=== PATIENT | female | born 1965 | race Hispanic/Latino ===

== ENCOUNTER 2018-04-01 15:31 | Inpatient (IN) | payer OTHER ==
[2018-04-01 15:47] VITALS: BMI 22.4
--- NOTE | 2018-04-01 17:49 | CP.PCM.CON ---
History of Present Illness - History of Present Illness History of Present Illness: Initial Nephrology Consultation: Assessment: critical Acute Kidney Injury (N17.9) possibly due to obstructive uropathy b/l hydroureteronephrosis Fall with rhabdomyolysis, severe anemia with leukocytsosis ? Sepsis Hyperphosphatemia (E83.39), hypocalcemia, hyperuricemia leg wounds Plan Pt in need of acute need for renal replacement therapy at this time. Will plan for HD today as ordered maintain hemodyanamics stable. 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 pt NPO at present urology consult for b/l hydro heme eval Check urine analysis, urine tox, spot protein/creatinine and albumin/creatinine ratio, monitor CPK, uric acid., phos level Check for 25-OH vitamin D, iPTH, TSAT and Ferritin Check serum protein electrophoresis with immunofixation HIV/Hep B and Hep C serology [sent at [facility]] Dose meds/antibiotics for reduced GFR. Avoid fleets enema/magnesium based laxatives. Avoid nephrotoxins/NSAIDs/ iodinated contrast (unless needed emergently) Glycemic control Further work up/management as per primary team Thanks for allowing me to participate in care of your patient. Will follow patient with you. Please call if any Qs. d/w ICU team Dr Jose G Clancy Office: [phone] Chief Complaint; feel sick HPI: Pt is a 52 F without known medical hx, lives in [place] presented from cruise ship as found to have unresponsiveness and here for further eval found to have severe renal failure, anemia and high WBC count renal consult for LULA eval Denies OTC/herbal meds or NSAIDs No recent iodinated contrast exposure. ROS: Cardiovascular: No chest pain. Pulmonary: No shortness of breath Gastrointestinal: denies abdominal pain No nausea. No vomiting. Genitourinary: No pain while urinating. Denies blood in urine. All other negative Physical Examination: General Appearance: co-operative , frail, chronically debilitated and ill appearing, very pale Vitals reviewed and noted as below Head; Atraumatic, normocephalic ENT: no ulcers no thrush. Tongue is midline. Oropharynx: no rash or ulcers. EYES: Pupils are equal, round and reactive to light accommodation. Eye muscles and extraocular movement intact. Sclera is anicteric. Neck; supple no lymphadenopathy, no thyromegaly or bruit Lungs: Increased respiratory rate/effort. Breath sounds bilateral equal and clear anteriorly Heart: Normal rate. s1s2 normal. No rub or gallop. Extremities: 1-2+ edema. No varicose veins. has wounds in lower extremities Neurological: Patient is alert, awake and oriented to person, place and time. No focal deficit. Strength bilateral appropriate and equal. mild confusion noted Skin: Warm and dry. Normal turgor. No rash. Palpitation: Normal elasticity for age. has echymoses over rib cage area Abdomen: Abdomen is soft. Bowel sounds +. There is no abdominal tenderness, no guarding/rigidity no organomegaly. globular non reducible mass in lower abdomen noted Psych: normal insight and normal affect/mood MSK: no joint tenderness or swelling. Digits and nails normal, no deformity : kidney or bladder not palpable. has sawyer Labs/imaging reviewed. Past medical history, past surgical history, family history, social history, allergy reviewed and noted as below Family hx: no hx of CKD. Rest non-contributory Past Patient History - Past Social History Smoking Status: Never Smoked - CARDIAC Hx Cardiac Disorders: (UNKNOWN) - PULMONARY Hx Respiratory Disorders: (UNKNOWN) - NEUROLOGICAL Hx Neurological Disorder: (UNKNOWN) - HEENT Hx HEENT Problems: (UNKNOWN) - RENAL Hx Chronic Kidney Disease: (UNKNOWN) - ENDOCRINE/METABOLIC Hx Endocrine Disorders: (UNKNOWN) - HEMATOLOGICAL/ONCOLOGICAL Hx Blood Disorders: (UNKNOWN) Hx Anemia: Yes (04-01-18) Other/Comment: SEPSIS 04-01-18 - INTEGUMENTARY Other/Comment: BLLE sores. Discoloration to Abd area. Umbilical hernia - MUSCULOSKELETAL/RHEUMATOLOGICAL Hx Musculoskeletal Disorders: (UNKNOWN) Hx Falls: Yes - GASTROINTESTINAL Hx Gastrointestinal Disorders: Yes (NON REDUCIBLE UMBILICAL HERNIA) - GENITOURINARY/GYNECOLOGICAL Hx Genitourinary Disorders: (UNKNOWN) - PSYCHIATRIC Hx Substance Use: No - SURGICAL HISTORY Hx Surgeries: No Meds Allergies/Adverse Reactions: Allergies Allergy/AdvReac Type Severity Reaction Status Date / Time No Known Allergies Allergy Verified 04/01/18 17:21
[2018-04-01] MEDS ORDERED: Vancomycin 1 gm/NS 200 ml 1 GM/200 ML BAG IVPB SCH (18:00)
[2018-04-01] MEDS ORDERED: DOPamine 400mg/250ml D5W 400 MG/250 ML BAG IV PRN (18:50)
[2018-04-01 18:55] LABS: ABG ALLEN TEST POS; ARTERIAL BLOOD GAS HCO3 17.1 mmol/L (21-28); ARTERIAL BLOOD GAS O2 SAT 96.3 % (95-98); ARTERIAL BLOOD GAS PCO2 13 mm/Hg (35-45); ARTERIAL BLOOD GAS PH 7.49 (7.35-7.45); ARTERIAL BLOOD GAS PO2 122 mm/Hg (80-100); ARTERIAL BLOOD GAS TCO2 10.3 mmol/L (22-28)
[2018-04-01] MEDS: Sodium Chloride 0.9% 1,000 ML IV SCH (18:56)
--- NOTE | 2018-04-01 19:14 | CP.PCM.CON ---
History of Present Illness - History of Present Illness History of Present Illness: Chief complaint: Abnormal blood works, transferred from [facility] for emergency hemodialysis. HPI: Patient initially presented to the emergency room at [facility], as she was found unresponsive in the cruise ship. When she presented to the emergency room patient had multiple medical condition , but patient started responding after that, not giving proper history. Patient was told that she is from [place], she was in vacation when she got sick. According to the medical information she was not able to move she was in the cabin, brought her to the emergency room. She was having significant skin excoriations, foul-smelling ulcer in the right leg, multiple ecchymosis in the abdomen, also in the groin area. She claims that the she was planning to lose weight, and she lost almost 40 pounds. After she started losing weight she started noticing hernia in the abdomen. Patient did not see any medical attention recently, did not see any medical doctor for quite a long time. Past medical history: Not available, agent denies any history Patient denies any allergies She claims that she is not a smoker nonalcoholic Family history not much available Review of systems: Patient is extremely thin looking, significant wasting noted. She is complaining of some shortness of breath, but not in any pain, not in any distress she climbs. She has no abdominal pain, no leg swelling she just not feeling well On examination: Vital signs is somewhat unstable, mild hypotension noted. Patient is extremely emaciated, thin looking significant muscle wasting noted. Multiple ecchymotic lesions in the abdomen, lower leg, and the groin region noted. Patient has a foul-smelling superficial skin gangrene lesions noted on the right lower extremity. She also has ecchymosis in the left leg and sacral region Chest bilateral diffuse wheezing noted. Regular heart sound Patient has a suprapubic abdominal mass periumbilical area soft tissue likely lipoma. Patient also has some hernia Patient's labs from the other hospital reviewed Patient has a hyperkalemia potassium 6.8. Very high BUN/creatinine noted Also severe anemia noted hemoglobin 4.0 Patient WBC 94. mostly neutrophilic. Elevated uric acid level noted. Also patient has elevated LDH. Calcium level is on the low side Phosphorus is elevated Chest x-ray mild congestive lung changes noted CT of the abdomen and pelvis reported as having mass in the pelvic region, bilateral hydronephrotic changes Assessment and recommendation: Patient is a 52-year-old female with a multiple condition at this time, severe metabolic acidosis, acute renal failure, hyperuricemia. High LDH. High CPK Patient also has a severe leukocytosis with the anemia, and also elevated platelets, high chance that the patient may have leukemia. Bilateral hydronephrosis and the mass in the abdominal, pelvic region. Abdominal mass in the abdominal wall. Significant ecchymotic changes. Bilateral leg swelling. Patient also has a likely is cellulitis with associated gangrene-like changes in the superficial skin, cellulitis severe, worsening necrotizing fasciitis cannot be ruled out. Currently on IV antibiotic. Will get a surgical opinion, urology opinion. Oncology opinion already called. Nephrology called. Patient is currently receiving blood transfusion, hemodialysis. Overall prognosis is very poor. The patient was transferred from the [facility] as there was no hemodialysis emergency available in that place. Patient was transferred to ICU in [facility] after multiple discussions with the hospital administration including REWIND OPERATOR. Patient was at high risk, which was explained to the administration, and also to the patient. Past Patient History - Past Social History Smoking Status: Never Smoked - CARDIAC Hx Cardiac Disorders: (UNKNOWN) - PULMONARY Hx Respiratory Disorders: (UNKNOWN) - NEUROLOGICAL Hx Neurological Disorder: (UNKNOWN) - HEENT Hx HEENT Problems: (UNKNOWN) - RENAL Hx Chronic Kidney Disease: (UNKNOWN) - ENDOCRINE/METABOLIC Hx Endocrine Disorders: (UNKNOWN) - HEMATOLOGICAL/ONCOLOGICAL Hx Blood Disorders: (UNKNOWN) Hx Anemia: Yes (04-01-18) Other/Comment: SEPSIS 04-01-18 - INTEGUMENTARY Other/Comment: BLLE sores. Discoloration to Abd area. Umbilical hernia - MUSCULOSKELETAL/RHEUMATOLOGICAL Hx Musculoskeletal Disorders: (UNKNOWN) Hx Falls: Yes - GASTROINTESTINAL Hx Gastrointestinal Disorders: Yes (NON REDUCIBLE UMBILICAL HERNIA) - GENITOURINARY/GYNECOLOGICAL Hx Genitourinary Disorders: (UNKNOWN) - PSYCHIATRIC Hx Substance Use: No - SURGICAL HISTORY Hx Surgeries: No Meds Allergies/Adverse Reactions: Allergies Allergy/AdvReac Type Severity Reaction Status Date / Time No Known Allergies Allergy Verified 04/01/18 17:21 - Medications Medications: Current Medications Meropenem 500 mg/ Sodium (Chloride) 100 mls @ 100 mls/hr IVPB Q8 NOLAN PRN Reason: Protocol Sodium Chloride (Sodium Chloride 0.9%) 1,000 mls @ 100 mls/hr IV .Q10H [facility] Last Admin: 04/01/18 18:56 Dose: Not Given Vancomycin/Sodium Chloride (Vancomycin 1 Gm/Ns 200 Ml) 1 gm in 200 mls @ 166.7 mls/hr IVPB Q48H NOLAN PRN Reason: Protocol Stop: 04/06/18 18:01 Last Admin: 04/01/18 18:05 Dose: Not Given Sodium Bicarbonate 50 meq/ (Sodium Chloride) 1,050 mls @ 50 mls/hr IV .Q21H [facility] Stop: 04/02/18 14:14 Last Admin: 04/01/18 18:55 Dose: 50 mls/hr Dopamine HCl/Dextrose (Dopamine 400mg/250ml D5w) 400 mg in 250 mls @ 4.093 mls/ hr IV .Q24H PRN; Protocol; 2 MCG/KG/MIN PRN Reason: TITRATE PER MD ORDER Pantoprazole Sodium (Protonix Inj) 40 mg IVP DAILY [facility] Results - Vital Signs Recent Vital Signs: Last Vital Signs Temp 94.5 F L 04/01/18 19:03 Pulse 98 H 04/01/18 19:03 Resp 30 H 04/01/18 19:03 BP 123/74 04/01/18 19:03 Pulse Ox 100 04/01/18 18:30 - Labs Labs: Laboratory Results - last 24 hr 04/01/18 04/01/18 17:51 18:50 Puncture Site Lfa pCO2 13 L* pO2 122 H HCO3 17.1 L ABG pH 7.49 H ABG Total CO2 10.3 L ABG O2 Saturation 96.3 ABG Base Excess -10.1 L Jann Test Pos ABG Potassium 4.7 A-a O2 Difference 575.0 Respiratory Index 4.7 Sodium 143.0 Chloride 116.0 H Glucose 68 Lactate 2.3 H Liter Flow 15.0 FiO2 100.0 Crit Value Called To Helen Crit Value Called By [facility] Crit Value Read Back Y Blood Gas Notified Time 1856 Arterial Blood Potassium 4.7 Blood Type O POSITIVE Antibody Screen Negative
[2018-04-01 19:23] LABS: CREATININE, RANDOM URINE 36.9 mg/dL; SQUAMOUS EPITHIAL 4 /hpf (0-5); URINE BACTERIA OCC (<OCC); URINE BILIRUBIN NEGATIVE (NEGATIVE); URINE BLOOD 3+ (NEGATIVE); URINE CLARITY Hazy (Clear); URINE COLOR Yellow (YELLOW); URINE GLUCOSE (UA) 1+ mg/dL (Normal); URINE LEUKOCYTE ESTERASE 2+ Leu/uL (Negative); URINE PROTEIN 2+ mg/dL (NEGATIVE); URINE UROBILINOGEN NORMAL mg/dL (0.2-1.0)
[2018-04-01 19:30] LABS: BARBITURATES, UR NEGATIVE (NEGATIVE); BENZODIAZEPINES, UR NEGATIVE (NEGATIVE); OPIATES, UR NEGATIVE (NEGATIVE); PHENCYCLIDINE, UR NEGATIVE (NEGATIVE)
[2018-04-01 19:31] LABS: ALB/GLOB RATIO 0.7 (1.0-2.1); ALBUMIN 1.9 g/dL (3.5-5.0); ALT/SGPT 120 U/L (9-52); AST/SGOT 244 U/L (14-36); CALCIUM 6.3 mg/dl (8.6-10.4); URIC ACID 13.3 mg/dL (2.2-7.5)
[2018-04-01] MEDS ORDERED: Morphine 4 MG/ML VIAL IVP ONE (19:45)
--- NOTE | 2018-04-01 19:45 | CP.PCM.CON ---
History of Present Illness - History of Present Illness History of Present Illness: 52 year old female with unknown medical history sent from [place] with LULA, hyperuricemia, leukocytosis, anemia and thrombocytosis, with concern for tumor lysis and leukemia. The patient is currently on bipap and I am unable to obtain a history from the patient. She has foul smelling ulcer from her lower extremity. She has ecchymosis over her extremities and abdomen. She is currently undergoing PRBC transfusion and hemodialysis. Past medical, surgical, family, social history cannot be obtained. Allergies: NKA per documentation Review of systems cannot be obtained. Past Patient History - Past Social History Smoking Status: Never Smoked - CARDIAC Hx Cardiac Disorders: (UNKNOWN) - PULMONARY Hx Respiratory Disorders: (UNKNOWN) - NEUROLOGICAL Hx Neurological Disorder: (UNKNOWN) - HEENT Hx HEENT Problems: (UNKNOWN) - RENAL Hx Chronic Kidney Disease: (UNKNOWN) - ENDOCRINE/METABOLIC Hx Endocrine Disorders: (UNKNOWN) - HEMATOLOGICAL/ONCOLOGICAL Hx Blood Disorders: (UNKNOWN) Hx Anemia: Yes (04-01-18) Other/Comment: SEPSIS 04-01-18 - INTEGUMENTARY Other/Comment: BLLE sores. Discoloration to Abd area. Umbilical hernia - MUSCULOSKELETAL/RHEUMATOLOGICAL Hx Musculoskeletal Disorders: (UNKNOWN) Hx Falls: Yes - GASTROINTESTINAL Hx Gastrointestinal Disorders: Yes (NON REDUCIBLE UMBILICAL HERNIA) - GENITOURINARY/GYNECOLOGICAL Hx Genitourinary Disorders: (UNKNOWN) - PSYCHIATRIC Hx Substance Use: No - SURGICAL HISTORY Hx Surgeries: No Meds Allergies/Adverse Reactions: Allergies Allergy/AdvReac Type Severity Reaction Status Date / Time No Known Allergies Allergy Verified 04/01/18 17:21 - Medications Medications: Current Medications Meropenem 500 mg/ Sodium (Chloride) 100 mls @ 100 mls/hr IVPB Q8 NOLAN PRN Reason: Protocol Sodium Chloride (Sodium Chloride 0.9%) 1,000 mls @ 100 mls/hr IV .Q10H NOLAN Last Admin: 04/01/18 18:56 Dose: Not Given Vancomycin/Sodium Chloride (Vancomycin 1 Gm/Ns 200 Ml) 1 gm in 200 mls @ 166.7 mls/hr IVPB Q48H NOLAN PRN Reason: Protocol Stop: 04/06/18 18:01 Last Admin: 04/01/18 18:05 Dose: Not Given Sodium Bicarbonate 50 meq/ (Sodium Chloride) 1,050 mls @ 50 mls/hr IV .Q21H [facility] Stop: 04/02/18 14:14 Last Admin: 04/01/18 18:55 Dose: 50 mls/hr Dopamine HCl/Dextrose (Dopamine 400mg/250ml D5w) 400 mg in 250 mls @ 4.093 mls/ hr IV .Q24H PRN; Protocol; 2 MCG/KG/MIN PRN Reason: TITRATE PER MD ORDER Morphine Sulfate (Morphine) 2 mg IVP ONCE ONE Stop: 04/01/18 19:46 Pantoprazole Sodium (Protonix Inj) 40 mg IVP DAILY NOLAN Physical Exam - Head Exam Head Exam: ATRAUMATIC - Eye Exam Eye Exam: Normal appearance - ENT Exam ENT Exam: Mucous Membranes Dry - Respiratory Exam Respiratory Exam: Respiratory Distress - Cardiovascular Exam Cardiovascular Exam: +S1, +S2 - GI/Abdominal Exam GI & Abdominal Exam: Normal Bowel Sounds - Extremities Exam Additional comments: +fould smelling ulcer - Psychiatric Exam Psychiatric exam: Depressed - Skin Skin Exam: Warm Results - Vital Signs Recent Vital Signs: Last Vital Signs Temp 95 F L 04/01/18 19:35 Pulse 104 H 04/01/18 19:35 Resp 28 H 04/01/18 19:35 BP 98/56 L 04/01/18 19:35 Pulse Ox 100 04/01/18 18:30 - Labs Result Diagrams: 04/01/18 20:10 04/01/18 19:09 Labs: Laboratory Results - last 24 hr 04/01/18 04/01/18 04/01/18 17:51 18:50 19:09 Puncture Site Lfa pCO2 13 L* pO2 122 H HCO3 17.1 L ABG pH 7.49 H ABG Total CO2 10.3 L ABG O2 Saturation 96.3 ABG Base Excess -10.1 L Jann Test Pos ABG Potassium 4.7 A-a O2 Difference 575.0 Respiratory Index 4.7 Sodium 143.0 146 Chloride 116.0 H 114 H Glucose 68 Lactate 2.3 H Liter Flow 15.0 FiO2 100.0 Crit Value Called To Helen Crit Value Called By [facility] Crit Value Read Back Y Blood Gas Notified Time 1855 Potassium 5.4 H Anion Gap 29 H Random Glucose 64 L Uric Acid 13.3 H Calcium 6.3 L Total Bilirubin 0.7 AST 244 H ALT 120 H Alkaline Phosphatase 297 H D Lactate Dehydrogenase 2023 H Total Protein 4.4 L Albumin 1.9 L Globulin 2.5 Albumin/Globulin Ratio 0.7 L Arterial Blood Potassium 4.7 Urine Color Urine Clarity Urine pH Ur Specific [place] Urine Protein Urine Glucose (UA) Urine Ketones Urine Blood Urine Nitrate Urine Bilirubin Urine Urobilinogen Ur Leukocyte Esterase Urine WBC (Auto) Urine RBC (Auto) Ur Squamous Epith Cells Urine Bacteria Ur Random Creatinine Urine Opiates Screen Urine Methadone Screen Ur Barbiturates Screen Ur Phencyclidine Scrn Ur Amphetamines Screen U Benzodiazepines Scrn U Oth Cocaine Metabols U Cannabinoids Screen Blood Type O POSITIVE Antibody Screen Negative 04/01/18 04/01/18 19:09 19:09 Puncture Site pCO2 pO2 HCO3 ABG pH ABG Total CO2 ABG O2 Saturation ABG Base Excess Jann Test ABG Potassium A-a O2 Difference Respiratory Index Sodium Chloride Glucose Lactate Liter Flow FiO2 Crit Value Called To Crit Value Called By Crit Value Read Back Blood Gas Notified Time Potassium Anion Gap Random Glucose Uric Acid Calcium Total Bilirubin AST ALT Alkaline Phosphatase Lactate Dehydrogenase Total Protein Albumin Globulin Albumin/Globulin Ratio Arterial Blood Potassium Urine Color Yellow Urine Clarity Hazy Urine pH 6.0 Ur Specific [place] 1.012 Urine Protein 2+ H Urine Glucose (UA) 1+ Urine Ketones Trace Urine Blood 3+ H Urine Nitrate Negative Urine Bilirubin Negative Urine Urobilinogen Normal Ur Leukocyte Esterase 2+ H Urine WBC (Auto) 33 H Urine RBC (Auto) 37 H Ur Squamous Epith Cells 4 Urine Bacteria Occ H Ur Random Creatinine 36.9 Urine Opiates Screen Negative Urine Methadone Screen Negative Ur Barbiturates Screen Negative Ur Phencyclidine Scrn Negative Ur Amphetamines Screen Negative U Benzodiazepines Scrn Negative U Oth Cocaine Metabols Negative U Cannabinoids Screen Negative Blood Type Antibody Screen Assessment & Plan (1) Leukocytosis Assessment and Plan: on antibiotics will review peripheral smear to evaluate for blasts; flow cytometery to be sent Tuesday will hold off on hydroxyurea for now as WBC declining ? related to infection ? leukemia Status: Acute (2) Anemia Assessment and Plan: will check retic count, b12, folate, ferritin, FOBT to further characterize monoclonal protein w/u sent ? underlying malignancy Status: Acute (3) Thrombocytosis Assessment and Plan: ? reactive will send JAK2 mutation Status: Acute (4) Coagulopathy Assessment and Plan: will add fibrinogen Thank you for this interesting consult. Status: Acute
[2018-04-01 19:56] LABS: BLOOD UREA NITROGEN 136 mg/dL (7-17); GFR AFRICAN-AMERICAN 6; GFR NON-AFRICAN AMERICAN 5
[2018-04-01 20:15] LABS: BASO # 0.1 K/uL (0.0-0.2); BASO % 0.2 % (0.0-2.0); EOS # 0.3 K/uL (0.0-0.7); EOS % 0.4 % (0.0-4.0); HEMOGLOBIN 7.5 g/dL (11.0-16.0); LYMPH # 1.5 K/uL (1.0-4.3); LYMPH % 2.3 % (20.0-40.0); MEAN CELL VOLUME 71.2 fL (81.0-99.0); MEAN CORPUSCULAR HEMOGLOBIN 23.8 pg (27.0-31.0); MEAN CORPUSCULAR HGB CONC 33.4 g/dL (33.0-37.0); MEAN PLATELET VOLUME 8.3 fL (7.2-11.7); MONO # 0.6 K/uL (0.0-0.8); MONO % 0.9 % (0.0-10.0); NEUT # 62.1 K/uL (1.8-7.0); NEUT % 96.2 % (50.0-75.0); NRBC % 0.5 % (0.0-2.0); PLATELET COUNT 534 K/uL (130-400); RBC 3.16 Mil/uL (3.80-5.20)
[2018-04-01 20:18] LABS: WHITE BLOOD COUNT 64.5 K/uL (4.8-10.8)
[2018-04-01 20:46] LABS: BANDS 8 % (0-2); LYMPHOCYTE 3 % (20-40); MONOCYTE 1 % (0-10); NEUTROPHIL 88 % (50-75); NUCLEATED RED BLOOD CELL 2 % (0-0); TOTAL CELLS COUNTED 100
[2018-04-01 20:47] LABS: PLATELET ESTIMATE INCREASED (NORMAL)
[2018-04-01 20:48] LABS: HYPOCHROMIC SLIGHT; POIKILOCYTOSIS MODERATE
[2018-04-01 20:49] LABS: ACANTHOCYTES SLIGHT; SCHISTOCYTES SLIGHT
[2018-04-01 20:50] LABS: GIANT PLATELETS PRESENT
[2018-04-01] MEDS: Meropenem 500 MG in Sodium Chloride 0.9% 100 ML IVPB SCH (21:24)
[2018-04-01 21:49] LABS: BASO # 0.1 K/uL (0.0-0.2); BASO % 0.2 % (0.0-2.0); EOS # 0.3 K/uL (0.0-0.7); EOS % 0.5 % (0.0-4.0); LYMPH # 1.2 K/uL (1.0-4.3); LYMPH % 2.2 % (20.0-40.0); MEAN CELL VOLUME 72.1 fL (81.0-99.0); MEAN CORPUSCULAR HEMOGLOBIN 23.4 pg (27.0-31.0); MEAN CORPUSCULAR HGB CONC 32.4 g/dL (33.0-37.0); MEAN PLATELET VOLUME 7.2 fL (7.2-11.7); MONO # 0.9 K/uL (0.0-0.8); MONO % 1.5 % (0.0-10.0); NEUT # 54.7 K/uL (1.8-7.0); NEUT % 95.6 % (50.0-75.0); NRBC % 0.6 % (0.0-2.0); RBC 3.01 Mil/uL (3.80-5.20); RED CELL DISTRIBUTION WIDTH 30.6 % (11.5-14.5)
[2018-04-01 21:53] LABS: WHITE BLOOD COUNT 57.2 K/uL (4.8-10.8)
[2018-04-01 21:56] LABS: INR 1.4; PROTHROMBIN TIME 15.5 SECONDS (9.7-12.2)
[2018-04-01] MEDS ORDERED: Sodium Chloride 0.9% 500 ML IV SCH ×2 (22:00→22:26)
[2018-04-01 22:04] LABS: ALB/GLOB RATIO 0.8 (1.0-2.1); CALCIUM 6.7 mg/dl (8.6-10.4)
[2018-04-01] MEDS ORDERED: Morphine 4 MG/ML VIAL IVP STA (22:20)
--- NOTE | 2018-04-01 22:31 | CP.PCM.PN ---
Subjective - Date & Time of Evaluation Date of Evaluation: 04/01/18 Time of Evaluation: 22:29 - Subjective Subjective: pt is awake but her breathing is very laboured spoke to her decided to intubate pt was intubated with 7.5 size tube placed at 23cm at lip bilateral air entry cxr ordered abg ordered pt condition is very critical family on their way Objective - Vital Signs/Intake and Output Vital Signs (last 24 hours): Temp Pulse Resp BP Pulse Ox 95 F L 101 H 26 H 109/67 100 04/01/18 20:20 04/01/18 20:20 04/01/18 20:20 04/01/18 20:20 04/01/18 20:20 Intake and Output: 04/01/18 04/02/18 18:59 06:59 Intake Total 595 715 Output Total 100 50 Balance 495 665 - Medications Medications: Current Medications Meropenem 500 mg/ Sodium (Chloride) 100 mls @ 100 mls/hr IVPB Q8 NOLAN PRN Reason: Protocol Last Admin: 04/01/18 21:24 Dose: 100 mls/hr Sodium Chloride (Sodium Chloride 0.9%) 1,000 mls @ 100 mls/hr IV .Q10H [facility] Last Admin: 04/01/18 18:56 Dose: Not Given Vancomycin/Sodium Chloride (Vancomycin 1 Gm/Ns 200 Ml) 1 gm in 200 mls @ 166.7 mls/hr IVPB Q48H NOLAN PRN Reason: Protocol Stop: 04/06/18 18:01 Last Admin: 04/01/18 18:05 Dose: Not Given Sodium Bicarbonate 50 meq/ (Sodium Chloride) 1,050 mls @ 50 mls/hr IV .Q21H [facility] Stop: 04/02/18 14:14 Last Admin: 04/01/18 18:55 Dose: 50 mls/hr Dopamine HCl/Dextrose (Dopamine 400mg/250ml D5w) 400 mg in 250 mls @ 4.093 mls/ hr IV .Q24H PRN; Protocol; 2 MCG/KG/MIN PRN Reason: TITRATE PER MD ORDER Metronidazole (Flagyl) 250 mg in 50 mls @ 100 mls/hr IVPB Q8 NOLAN PRN Reason: Protocol Stop: 04/06/18 22:01 Clindamycin Phosphate 300 mg/ (Sodium Chloride) 52 mls @ 100 mls/hr IVPB Q6H NOLAN PRN Reason: Protocol Linezolid (Zyvox 600mg/300ml D5w) 600 mg in 300 mls @ 200 mls/hr IVPB Q12 NOLAN PRN Reason: Protocol Amikacin Sulfate 750 mg/ (Sodium Chloride) 103 mls @ 100 mls/hr IV STAT STA PRN Reason: Protocol Stop: 04/01/18 23:03 Sodium Chloride (Sodium Chloride 0.9%) 500 mls @ 500 mls/hr IV .Q1H NOLAN Stop: 04/01/18 22:59 Fentanyl Citrate 2,500 mcg/ (Sodium Chloride) 250 mls @ 10.94 mls/hr IV .[id number] PRN; 2 MCG/KG/HR PRN Reason: Protocol Pantoprazole Sodium (Protonix Inj) 40 mg IVP DAILY NOLAN - Labs Labs: 04/01/18 21:45 04/01/18 21:45 PT 15.5 SECONDS (9.7-12.2) H 04/01/18 21:45 INR 1.4 04/01/18 21:45 APTT 32 SECONDS (21-34) 04/01/18 21:45
[2018-04-01] MEDS: Linezolid 600 mg in D5W 300 ml 600 MG/300 ML BAG IVPB SCH (22:40)
[2018-04-01] MEDS: Albumin Human 25% (12.5 gm/50 ml) IV SCH (22:54)
[2018-04-01] MEDS: Clindamycin 300 MG in Sodium Chloride 0.9% 50 ML IVPB SCH (23:02)
[2018-04-01] MEDS: metroNIDAZOLE IV 250mg/50 ml 250 MG/50 ML BAG IVPB SCH (23:09)
--- NOTE | 2018-04-01 23:44 | CP.PCM.HP ---
History of Present Illness - History of Present Illness History of Present Illness: Chief complaint: Abnormal blood works, transferred from [facility] for emergency hemodialysis. HPI: Patient initially presented to the emergency room at [facility], as she was [place]. When she presented to the emergency room patient had multiple medical condition , but patient started responding after that, not giving proper history. Patient was told that she is from [place], she was in vacation when she got sick. According to the medical information she was not able to move she was in the cabin, brought her to the emergency room. She was having significant skin excoriations, foul-smelling ulcer in the right leg, multiple ecchymosis in the abdomen, also in the groin area. She claims that the she was planning to lose weight, and she lost almost 40 pounds. After she started losing weight she started noticing hernia in the abdomen. Patient did not see any medical attention recently, did not see any medical doctor for quite a long time. Past medical history: Not available, agent denies any history Patient denies any allergies She claims that she is not a smoker nonalcoholic Family history not much available Review of systems: Patient is extremely thin looking, significant wasting noted. She is complaining of some shortness of breath, but not in any pain, not in any distress she climbs. She has no abdominal pain, no leg swelling she just not feeling well On examination: Vital signs is somewhat unstable, mild hypotension noted. Patient is extremely emaciated, thin looking significant muscle wasting noted. Multiple ecchymotic lesions in the abdomen, lower leg, and the groin region noted. Patient has a foul-smelling superficial skin gangrene lesions noted on the right lower extremity. She also has ecchymosis in the left leg and sacral region Chest bilateral diffuse wheezing noted. Regular heart sound Patient has a suprapubic abdominal mass periumbilical area soft tissue likely lipoma. Patient also has some hernia Patient's labs from the other hospital reviewed Patient has a hyperkalemia potassium 6.8. Very high BUN/creatinine noted Also severe anemia noted hemoglobin 4.0 Patient WBC 94. mostly neutrophilic. Elevated uric acid level noted. Also patient has elevated LDH. Calcium level is on the low side Phosphorus is elevated Chest x-ray mild congestive lung changes noted CT of the abdomen and pelvis reported as having mass in the pelvic region, bilateral hydronephrotic changes Assessment and recommendation: Patient is a 52-year-old female with a multiple condition at this time, severe metabolic acidosis, acute renal failure, hyperuricemia. High LDH. High CPK Patient also has a severe leukocytosis with the anemia, and also elevated platelets, high chance that the patient may have leukemia. Bilateral hydronephrosis and the mass in the abdominal, pelvic region. Abdominal mass in the abdominal wall. Significant ecchymotic changes. Bilateral leg swelling. Patient also has a likely is cellulitis with associated gangrene-like changes in the superficial skin, cellulitis severe, worsening necrotizing fasciitis cannot be ruled out. Currently on IV antibiotic. Will get a surgical opinion, urology opinion. Oncology opinion already called. Nephrology called. Patient is currently receiving blood transfusion, hemodialysis. Overall prognosis is very poor. The patient was transferred from the [facility] as there was no hemodialysis emergency available in that place. [facility] multiple discussions with the hospital administration including [employer]. Patient was at high risk, which was explained to the administration, and also to the patient. Present on Admission - Present on Admission Any Indicators Present on Admission: No Past Patient History - Past Medical History & Family History Past Medical History?: Yes - Past Social History Smoking Status: Never Smoked - CARDIAC Hx Cardiac Disorders: (UNKNOWN) - PULMONARY Hx Respiratory Disorders: (UNKNOWN) - NEUROLOGICAL Hx Neurological Disorder: (UNKNOWN) - HEENT Hx HEENT Problems: (UNKNOWN) - RENAL Hx Chronic Kidney Disease: (UNKNOWN) - ENDOCRINE/METABOLIC Hx Endocrine Disorders: (UNKNOWN) - HEMATOLOGICAL/ONCOLOGICAL Hx Blood Disorders: (UNKNOWN) Hx Anemia: Yes (04-01-18) Other/Comment: SEPSIS 04-01-18 - INTEGUMENTARY Other/Comment: BLLE sores. Discoloration to Abd area. Umbilical hernia - MUSCULOSKELETAL/RHEUMATOLOGICAL Hx Musculoskeletal Disorders: (UNKNOWN) Hx Falls: Yes - GASTROINTESTINAL Hx Gastrointestinal Disorders: Yes (NON REDUCIBLE UMBILICAL HERNIA) - GENITOURINARY/GYNECOLOGICAL Hx Genitourinary Disorders: (UNKNOWN) - PSYCHIATRIC Hx Substance Use: No - SURGICAL HISTORY Hx Surgeries: No - ANESTHESIA Hx Anesthesia: No Hx Anesthesia Reactions: No Meds Allergies/Adverse Reactions: Allergies Allergy/AdvReac Type Severity Reaction Status Date / Time No Known Allergies Allergy Verified 04/01/18 17:21 Results - Vital Signs Recent Vital Signs: Last Vital Signs Temp 96.8 F L 04/01/18 23:32 Pulse 155 H 04/01/18 23:32 Resp 24 04/01/18 23:32 BP 88/53 L 04/01/18 23:32 Pulse Ox 100 04/01/18 20:20 - Labs Result Diagrams: 04/11/18 06:29 04/11/18 06:29 Labs: Laboratory Results - last 24 hr 04/01/18 04/01/18 04/01/18 17:51 18:50 19:09 WBC RBC Hgb Hct MCV MCH MCHC RDW Plt Count MPV Neut % (Auto) Lymph % (Auto) [place] % (Auto) Eos % (Auto) Baso % (Auto) Neut # (Auto) Lymph # (Auto) [place] # (Auto) Eos # (Auto) Baso # (Auto) Neutrophils % (Manual) Band Neutrophils % Lymphocytes % (Manual) Monocytes % (Manual) Nucleated RBC % Platelet Estimate Giant Platelets Hypochromasia (manual) Poikilocytosis (manual Acanthocytes (Spur) Schistocytes PT INR APTT Puncture Site Lfa pCO2 13 L* pO2 122 H HCO3 17.1 L ABG pH 7.49 H ABG Total CO2 10.3 L ABG O2 Saturation 96.3 ABG Base Excess -10.1 L Jann Test Pos ABG Potassium 4.7 A-a O2 Difference 575.0 Respiratory Index 4.7 Sodium 143.0 146 Chloride 116.0 H 114 H Glucose 68 Lactate 2.3 H Liter Flow 15.0 FiO2 100.0 Crit Value Called To Helen Crit Value Called By [facility] Crit Value Read Back Y Blood Gas Notified Time 1855 Potassium 5.4 H Carbon Dioxide 8 L* Anion Gap 29 H BUN 136 H* Creatinine 8.1 H* Est GFR ( Amer) 6 Est GFR (Non-Af Amer) 5 Random Glucose 64 L Uric Acid 13.3 H Calcium 6.3 L Phosphorus Magnesium Total Bilirubin 0.7 AST 244 H ALT 120 H Alkaline Phosphatase 297 H D Lactate Dehydrogenase 2023 H Total Creatine Kinase 6254 H Total Protein 4.4 L Albumin 1.9 L Globulin 2.5 Albumin/Globulin Ratio 0.7 L Arterial Blood Potassium 4.7 Urine Color Urine Clarity Urine pH Ur Specific [place] Urine Protein Urine Glucose (UA) Urine Ketones Urine Blood Urine Nitrate Urine Bilirubin Urine Urobilinogen Ur Leukocyte Esterase Urine WBC (Auto) Urine RBC (Auto) Ur Squamous Epith Cells Urine Bacteria Ur Random Creatinine Urine Opiates Screen Urine Methadone Screen Ur Barbiturates Screen Ur Phencyclidine Scrn Ur Amphetamines Screen U Benzodiazepines Scrn U Oth Cocaine Metabols U Cannabinoids Screen Blood Type O POSITIVE Antibody Screen Negative 04/01/18 04/01/18 04/01/18 19:09 19:09 20:10 WBC 64.5 H* RBC 3.16 L Hgb 7.5 L Hct 22.5 L MCV 71.2 L MCH 23.8 L MCHC 33.4 RDW 32.0 H Plt Count 534 H MPV 8.3 Neut % (Auto) 96.2 H Lymph % (Auto) 2.3 L [place] % (Auto) 0.9 Eos % (Auto) 0.4 Baso % (Auto) 0.2 Neut # (Auto) 62.1 H Lymph # (Auto) 1.5 [place] # (Auto) 0.6 Eos # (Auto) 0.3 Baso # (Auto) 0.1 Neutrophils % (Manual) 88 H Band Neutrophils % 8 H Lymphocytes % (Manual) 3 L Monocytes % (Manual) 1 Nucleated RBC % 2 H Platelet Estimate Increased H Giant Platelets Present Hypochromasia (manual) Slight Poikilocytosis (manual Moderate Acanthocytes (Spur) Slight Schistocytes Slight PT INR APTT Puncture Site pCO2 pO2 HCO3 ABG pH ABG Total CO2 ABG O2 Saturation ABG Base Excess Jann Test ABG Potassium A-a O2 Difference Respiratory Index Sodium Chloride Glucose Lactate Liter Flow FiO2 Crit Value Called To Crit Value Called By Crit Value Read Back Blood Gas Notified Time Potassium Carbon Dioxide Anion Gap BUN Creatinine Est GFR ( Amer) Est GFR (Non-Af Amer) Random Glucose Uric Acid Calcium Phosphorus Magnesium Total Bilirubin AST ALT Alkaline Phosphatase Lactate Dehydrogenase Total Creatine Kinase Total Protein Albumin Globulin Albumin/Globulin Ratio Arterial Blood Potassium Urine Color Yellow Urine Clarity Hazy Urine pH 6.0 Ur Specific [place] 1.012 Urine Protein 2+ H Urine Glucose (UA) 1+ Urine Ketones Trace Urine Blood 3+ H Urine Nitrate Negative Urine Bilirubin Negative Urine Urobilinogen Normal Ur Leukocyte Esterase 2+ H Urine WBC (Auto) 33 H Urine RBC (Auto) 37 H Ur Squamous Epith Cells 4 Urine Bacteria Occ H Ur Random Creatinine 36.9 Urine Opiates Screen Negative Urine Methadone Screen Negative Ur Barbiturates Screen Negative Ur Phencyclidine Scrn Negative Ur Amphetamines Screen Negative U Benzodiazepines Scrn Negative U Oth Cocaine Metabols Negative U Cannabinoids Screen Negative Blood Type Antibody Screen 04/01/18 04/01/18 04/01/18 21:45 21:45 21:45 WBC 57.2 H* RBC 3.01 L Hgb 7.0 L Hct 21.7 L MCV 72.1 L MCH 23.4 L MCHC 32.4 L RDW 30.6 H Plt Count 485 H MPV 7.2 Neut % (Auto) 95.6 H Lymph % (Auto) 2.2 L [place] % (Auto) 1.5 Eos % (Auto) 0.5 Baso % (Auto) 0.2 Neut # (Auto) 54.7 H Lymph # (Auto) 1.2 [place] # (Auto) 0.9 H Eos # (Auto) 0.3 Baso # (Auto) 0.1 Neutrophils % (Manual) Band Neutrophils % Lymphocytes % (Manual) Monocytes % (Manual) Nucleated RBC % Platelet Estimate Giant Platelets Hypochromasia (manual) Poikilocytosis (manual Acanthocytes (Spur) Schistocytes PT 15.5 H INR 1.4 APTT 32 Puncture Site pCO2 pO2 HCO3 ABG pH ABG Total CO2 ABG O2 Saturation ABG Base Excess Jann Test ABG Potassium A-a O2 Difference Respiratory Index Sodium 142 Chloride 109 H Glucose Lactate Liter Flow FiO2 Crit Value Called To Crit Value Called By Crit Value Read Back Blood Gas Notified Time Potassium 4.3 Carbon Dioxide 12 L Anion Gap 26 H BUN 87 H Creatinine 5.5 H Est GFR ( Amer) 10 Est GFR (Non-Af Amer) 8 Random Glucose 43 L Uric Acid Calcium 6.7 L Phosphorus 6.9 H Magnesium 1.6 Total Bilirubin 0.8 AST 239 H ALT 122 H Alkaline Phosphatase 247 H Lactate Dehydrogenase Total Creatine Kinase Total Protein 4.6 L Albumin 2.0 L Globulin 2.6 Albumin/Globulin Ratio 0.8 L Arterial Blood Potassium Urine Color Urine Clarity Urine pH Ur Specific [place] Urine Protein Urine Glucose (UA) Urine Ketones Urine Blood Urine Nitrate Urine Bilirubin Urine Urobilinogen Ur Leukocyte Esterase Urine WBC (Auto) Urine RBC (Auto) Ur Squamous Epith Cells Urine Bacteria Ur Random Creatinine Urine Opiates Screen Urine Methadone Screen Ur Barbiturates Screen Ur Phencyclidine Scrn Ur Amphetamines Screen U Benzodiazepines Scrn U Oth Cocaine Metabols U Cannabinoids Screen Blood Type Antibody Screen
[2018-04-02] MEDS ORDERED: Digoxin 500 mcg/2ml (0.5 mg/2ml) Inj IVP ONE (00:26)
[2018-04-02 00:34] LABS: ABG ALLEN TEST POS; ARTERIAL BLOOD GAS HCO3 18.8 mmol/L (21-28); ARTERIAL BLOOD GAS PCO2 15 mm/Hg (35-45); ARTERIAL BLOOD GAS PH 7.51 (7.35-7.45); ARTERIAL BLOOD GAS PO2 263 mm/Hg (80-100); ARTERIAL BLOOD GAS TCO2 12.5 mmol/L (22-28)
[2018-04-02 00:38] VITALS: PULSE 150
[2018-04-02] MEDS: Clindamycin 300 MG in Sodium Chloride 0.9% 50 ML IVPB SCH ×4 (03:22→20:55)
[2018-04-02] MEDS: Sodium Chloride 0.9% 1,000 ML IV SCH ×2 (04:00→07:48)
[2018-04-02] MEDS: MethylPREDNISolone 40 mg Vial IVP SCH ×2 (05:11→18:31)
[2018-04-02] MEDS: metroNIDAZOLE IV 250mg/50 ml 250 MG/50 ML BAG IVPB SCH (05:11)
[2018-04-02] MEDS: Meropenem 500 MG in Sodium Chloride 0.9% 100 ML IVPB SCH ×3 (05:12→21:03)
--- NOTE | 2018-04-02 05:41 | CP.PCM.CON ---
<Kush Sherwood - Last Filed: 04/02/18 05:32> History of Present Illness - History of Present Illness History of Present Illness: General Surgery Consult Note for Dr. Singer This is a 52F with an unknown PMH who was found down for an unknown number of hours/days with no known cause. She was altered on arrival at [facility]. She was found to have rabdomylsis and acute renal failure possibly acute on chronic in need of an emergent Dialysis catheter which was placed by my surgical colleague at [facility]. She was noted there to have a small necrotic lower extremity ulcers without any significant signs of infection. Six hours after surgical evaluation at [facility] I was called to the see patient. She was being intubated at the time and was noted to have lymphangitis extending from the lower extremity wounds bilaterally to the inguinal creases. Spoke to mother and brother at bedside, report that the patient "doesnt tell them anything" and that its unlikely she sees a doctor, if she had medical problems its possible she is unaware. PMH: Unknown PSH: Unknown ALL: NKDA Review of Systems - Review of Systems Systems not reviewed;Unavailable: Acuity of Condition, Unstable Vital Signs, Altered Mental Status, Intubated Past Patient History - Past Medical History & Family History Past Medical History?: Yes - Past Social History Smoking Status: Never Smoked - CARDIAC Hx Cardiac Disorders: (UNKNOWN) - PULMONARY Hx Respiratory Disorders: (UNKNOWN) - NEUROLOGICAL Hx Neurological Disorder: (UNKNOWN) - HEENT Hx HEENT Problems: (UNKNOWN) - RENAL Hx Chronic Kidney Disease: (UNKNOWN) - ENDOCRINE/METABOLIC Hx Endocrine Disorders: (UNKNOWN) - HEMATOLOGICAL/ONCOLOGICAL Hx Blood Disorders: (UNKNOWN) Hx Anemia: Yes (04-01-18) Other/Comment: SEPSIS 04-01-18 - INTEGUMENTARY Other/Comment: BLLE sores. Discoloration to Abd area. Umbilical hernia - MUSCULOSKELETAL/RHEUMATOLOGICAL Hx Musculoskeletal Disorders: (UNKNOWN) Hx Falls: Yes - GASTROINTESTINAL Hx Gastrointestinal Disorders: Yes (NON REDUCIBLE UMBILICAL HERNIA) - GENITOURINARY/GYNECOLOGICAL Hx Genitourinary Disorders: (UNKNOWN) - PSYCHIATRIC Hx Substance Use: No - SURGICAL HISTORY Hx Surgeries: No - ANESTHESIA Hx Anesthesia: No Hx Anesthesia Reactions: No Meds Allergies/Adverse Reactions: Allergies Allergy/AdvReac Type Severity Reaction Status Date / Time No Known Allergies Allergy Verified 04/01/18 17:21 - Medications Medications: Current Medications Albumin Human (Albumin Human 25% (12.5 Gm/50 Ml)) 12.5 gm IV Q12 [facility] Last Admin: 04/01/18 22:54 Dose: 12.5 gm Meropenem 500 mg/ Sodium (Chloride) 100 mls @ 100 mls/hr IVPB Q8 [facility] PRN Reason: Protocol Last Admin: 04/02/18 05:12 Dose: 100 mls/hr Sodium Chloride (Sodium Chloride 0.9%) 1,000 mls @ 100 mls/hr IV .Q10H [facility] Last Admin: 04/01/18 18:56 Dose: Not Given Vancomycin/Sodium Chloride (Vancomycin 1 Gm/Ns 200 Ml) 1 gm in 200 mls @ 166.7 mls/hr IVPB Q48H [facility] PRN Reason: Protocol Stop: 04/06/18 18:01 Last Admin: 04/01/18 18:05 Dose: Not Given Sodium Bicarbonate 50 meq/ (Sodium Chloride) 1,050 mls @ 50 mls/hr IV .Q21H [facility] Stop: 04/02/18 14:14 Last Admin: 04/01/18 18:55 Dose: 50 mls/hr Dopamine HCl/Dextrose (Dopamine 400mg/250ml D5w) 400 mg in 250 mls @ 4.093 mls/ hr IV .Q24H PRN; Protocol; 2 MCG/KG/MIN PRN Reason: TITRATE PER MD ORDER Metronidazole (Flagyl) 250 mg in 50 mls @ 100 mls/hr IVPB Q8 [facility] PRN Reason: Protocol Stop: 04/06/18 22:01 Last Admin: 04/02/18 05:11 Dose: 100 mls/hr Clindamycin Phosphate 300 mg/ (Sodium Chloride) 52 mls @ 100 mls/hr IVPB Q6H [facility] PRN Reason: Protocol Last Admin: 04/02/18 03:22 Dose: 100 mls/hr Linezolid (Zyvox 600mg/300ml D5w) 600 mg in 300 mls @ 200 mls/hr IVPB Q12 [facility] PRN Reason: Protocol Last Admin: 04/01/18 22:40 Dose: 200 mls/hr Fentanyl Citrate 2,500 mcg/ (Sodium Chloride) 250 mls @ 10.94 mls/hr IV .[id number] PRN; 2 MCG/KG/HR PRN Reason: Protocol Last Titration: 04/02/18 01:47 Dose: 1 mcg/kg/hr, 5.5 mls/hr Lorazepam (Ativan) 2 mg IVP Q6H PRN PRN Reason: Anxiety Last Admin: 04/01/18 22:46 Dose: 2 mg Methylprednisolone (Solu-Medrol) 40 mg IVP Q12H [facility] Stop: 04/04/18 06:01 Last Admin: 04/02/18 05:11 Dose: 40 mg Pantoprazole Sodium (Protonix Inj) 40 mg IVP DAILY [facility] Physical Exam - Constitutional Appears: Toxic - Head Exam Head Exam: ATRAUMATIC, NORMOCEPHALIC - Respiratory Exam Additional comments: Intubated and ventilated - Cardiovascular Exam Additional comments: Tachycardic 145-165HR - GI/Abdominal Exam GI & Abdominal Exam: Hernia, Soft. absent: Guarding Additional comments: Erythema - Extremities Exam Additional comments: Bilateral lower extremity ulcers with erythema extending from the ulcer to the the inguinal crease. Results - Vital Signs Recent Vital Signs: Last Vital Signs Temp 98.8 F 04/02/18 02:03 Pulse 107 H 04/02/18 02:03 Resp 20 04/02/18 02:03 BP 96/58 L 04/02/18 02:03 Pulse Ox 100 04/02/18 01:00 - Labs Result Diagrams: 04/01/18 21:45 04/01/18 21:45 Labs: Laboratory Results - last 24 hr 04/01/18 04/01/18 04/01/18 17:51 18:50 19:09 WBC RBC Hgb Hct MCV MCH MCHC RDW Plt Count MPV Neut % (Auto) Lymph % (Auto) Divide % (Auto) Eos % (Auto) Baso % (Auto) Neut # (Auto) Lymph # (Auto) Divide # (Auto) Eos # (Auto) Baso # (Auto) Neutrophils % (Manual) Band Neutrophils % Lymphocytes % (Manual) Monocytes % (Manual) Nucleated RBC % Platelet Estimate Giant Platelets Hypochromasia (manual) Poikilocytosis (manual Acanthocytes (Spur) Schistocytes PT INR APTT Puncture Site Lfa pCO2 13 L* pO2 122 H HCO3 17.1 L ABG pH 7.49 H ABG Total CO2 10.3 L ABG O2 Saturation 96.3 ABG Base Excess -10.1 L Jann Test Pos ABG Potassium 4.7 A-a O2 Difference 575.0 Respiratory Index 4.7 Sodium 143.0 146 Chloride 116.0 H 114 H Glucose 68 Lactate 2.3 H Liter Flow 15.0 Vent Mode Mechanical Rate FiO2 100.0 Tidal Volume PEEP Crit Value Called To Helen Crit Value Called By Marek ozuna Crit Value Read Back Y Blood Gas Notified Time 1855 Potassium 5.4 H Carbon Dioxide 8 L* Anion Gap 29 H BUN 136 H* Creatinine 8.1 H* Est GFR ( Amer) 6 Est GFR (Non-Af Amer) 5 POC Glucose (mg/dL) Random Glucose 64 L Uric Acid 13.3 H Calcium 6.3 L Phosphorus Magnesium Total Bilirubin 0.7 AST 244 H ALT 120 H Alkaline Phosphatase 297 H D Lactate Dehydrogenase 2023 H Total Creatine Kinase 6254 H Total Protein 4.4 L Albumin 1.9 L Globulin 2.5 Albumin/Globulin Ratio 0.7 L Arterial Blood Potassium 4.7 Urine Color Urine Clarity Urine pH Ur Specific [place] Urine Protein Urine Glucose (UA) Urine Ketones Urine Blood Urine Nitrate Urine Bilirubin Urine Urobilinogen Ur Leukocyte Esterase Urine WBC (Auto) Urine RBC (Auto) Ur Squamous Epith Cells Urine Bacteria Ur Random Creatinine Urine Opiates Screen Urine Methadone Screen Ur Barbiturates Screen Ur Phencyclidine Scrn Ur Amphetamines Screen U Benzodiazepines Scrn U Oth Cocaine Metabols U Cannabinoids Screen Blood Type O POSITIVE Antibody Screen Negative 04/01/18 04/01/18 04/01/18 19:09 19:09 20:10 WBC 64.5 H* RBC 3.16 L Hgb 7.5 L Hct 22.5 L MCV 71.2 L MCH 23.8 L MCHC 33.4 RDW 32.0 H Plt Count 534 H MPV 8.3 Neut % (Auto) 96.2 H Lymph % (Auto) 2.3 L Divide % (Auto) 0.9 Eos % (Auto) 0.4 Baso % (Auto) 0.2 Neut # (Auto) 62.1 H Lymph # (Auto) 1.5 Divide # (Auto) 0.6 Eos # (Auto) 0.3 Baso # (Auto) 0.1 Neutrophils % (Manual) 88 H Band Neutrophils % 8 H Lymphocytes % (Manual) 3 L Monocytes % (Manual) 1 Nucleated RBC % 2 H Platelet Estimate Increased H Giant Platelets Present Hypochromasia (manual) Slight Poikilocytosis (manual Moderate Acanthocytes (Spur) Slight Schistocytes Slight PT INR APTT Puncture Site pCO2 pO2 HCO3 ABG pH ABG Total CO2 ABG O2 Saturation ABG Base Excess Jann Test ABG Potassium A-a O2 Difference Respiratory Index Sodium Chloride Glucose Lactate Liter Flow Vent Mode Mechanical Rate FiO2 Tidal Volume PEEP Crit Value Called To Crit Value Called By Crit Value Read Back Blood Gas Notified Time Potassium Carbon Dioxide Anion Gap BUN Creatinine Est GFR ( Amer) Est GFR (Non-Af Amer) POC Glucose (mg/dL) Random Glucose Uric Acid Calcium Phosphorus Magnesium Total Bilirubin AST ALT Alkaline Phosphatase Lactate Dehydrogenase Total Creatine Kinase Total Protein Albumin Globulin Albumin/Globulin Ratio Arterial Blood Potassium Urine Color Yellow Urine Clarity Hazy Urine pH 6.0 Ur Specific [place] 1.012 Urine Protein 2+ H Urine Glucose (UA) 1+ Urine Ketones Trace Urine Blood 3+ H Urine Nitrate Negative Urine Bilirubin Negative Urine Urobilinogen Normal Ur Leukocyte Esterase 2+ H Urine WBC (Auto) 33 H Urine RBC (Auto) 37 H Ur Squamous Epith Cells 4 Urine Bacteria Occ H Ur Random Creatinine 36.9 Urine Opiates Screen Negative Urine Methadone Screen Negative Ur Barbiturates Screen Negative Ur Phencyclidine Scrn Negative Ur Amphetamines Screen Negative U Benzodiazepines Scrn Negative U Oth Cocaine Metabols Negative U Cannabinoids Screen Negative Blood Type Antibody Screen 04/01/18 04/01/18 04/01/18 21:45 21:45 21:45 WBC 57.2 H* RBC 3.01 L Hgb 7.0 L Hct 21.7 L MCV 72.1 L MCH 23.4 L MCHC 32.4 L RDW 30.6 H Plt Count 485 H MPV 7.2 Neut % (Auto) 95.6 H Lymph % (Auto) 2.2 L Divide % (Auto) 1.5 Eos % (Auto) 0.5 Baso % (Auto) 0.2 Neut # (Auto) 54.7 H Lymph # (Auto) 1.2 Divide # (Auto) 0.9 H Eos # (Auto) 0.3 Baso # (Auto) 0.1 Neutrophils % (Manual) Band Neutrophils % Lymphocytes % (Manual) Monocytes % (Manual) Nucleated RBC % Platelet Estimate Giant Platelets Hypochromasia (manual) Poikilocytosis (manual Acanthocytes (Spur) Schistocytes PT 15.5 H INR 1.4 APTT 32 Puncture Site pCO2 pO2 HCO3 ABG pH ABG Total CO2 ABG O2 Saturation ABG Base Excess Jann Test ABG Potassium A-a O2 Difference Respiratory Index Sodium 142 Chloride 109 H Glucose Lactate Liter Flow Vent Mode Mechanical Rate FiO2 Tidal Volume PEEP Crit Value Called To Crit Value Called By Crit Value Read Back Blood Gas Notified Time Potassium 4.3 Carbon Dioxide 12 L Anion Gap 26 H BUN 87 H Creatinine 5.5 H Est GFR ( Amer) 10 Est GFR (Non-Af Amer) 8 POC Glucose (mg/dL) Random Glucose 43 L Uric Acid Calcium 6.7 L Phosphorus 6.9 H Magnesium 1.6 Total Bilirubin 0.8 AST 239 H ALT 122 H Alkaline Phosphatase 247 H Lactate Dehydrogenase Total Creatine Kinase Total Protein 4.6 L Albumin 2.0 L Globulin 2.6 Albumin/Globulin Ratio 0.8 L Arterial Blood Potassium Urine Color Urine Clarity Urine pH Ur Specific [place] Urine Protein Urine Glucose (UA) Urine Ketones Urine Blood Urine Nitrate Urine Bilirubin Urine Urobilinogen Ur Leukocyte Esterase Urine WBC (Auto) Urine RBC (Auto) Ur Squamous Epith Cells Urine Bacteria Ur Random Creatinine Urine Opiates Screen Urine Methadone Screen Ur Barbiturates Screen Ur Phencyclidine Scrn Ur Amphetamines Screen U Benzodiazepines Scrn U Oth Cocaine Metabols U Cannabinoids Screen Blood Type Antibody Screen 04/01/18 04/02/18 23:51 01:30 WBC RBC Hgb Hct MCV MCH MCHC RDW Plt Count MPV Neut % (Auto) Lymph % (Auto) Divide % (Auto) Eos % (Auto) Baso % (Auto) Neut # (Auto) Lymph # (Auto) Divide # (Auto) Eos # (Auto) Baso # (Auto) Neutrophils % (Manual) Band Neutrophils % Lymphocytes % (Manual) Monocytes % (Manual) Nucleated RBC % Platelet Estimate Giant Platelets Hypochromasia (manual) Poikilocytosis (manual Acanthocytes (Spur) Schistocytes PT INR APTT Puncture Site R rad pCO2 15 L* pO2 263 H HCO3 18.8 L ABG pH 7.51 H ABG Total CO2 12.5 L ABG O2 Saturation 98.0 ABG Base Excess -7.9 L Jann Test Pos ABG Potassium 4.4 A-a O2 Difference 75.0 Respiratory Index 0.3 Sodium 138.0 Chloride 108.0 H Glucose 77 Lactate 2.3 H Liter Flow Vent Mode Prvc Mechanical Rate 16 FiO2 50.0 Tidal Volume 450 PEEP 5 Crit Value Called To Dr hodge Crit Value Called By Carmenza doss rt Crit Value Read Back Y Blood Gas Notified Time 33 Potassium Carbon Dioxide Anion Gap BUN Creatinine Est GFR ( Amer) Est GFR (Non-Af Amer) POC Glucose (mg/dL) 70 Random Glucose Uric Acid Calcium Phosphorus Magnesium Total Bilirubin AST ALT Alkaline Phosphatase Lactate Dehydrogenase Total Creatine Kinase Total Protein Albumin Globulin Albumin/Globulin Ratio Arterial Blood Potassium 4.4 Urine Color Urine Clarity Urine pH Ur Specific [place] Urine Protein Urine Glucose (UA) Urine Ketones Urine Blood Urine Nitrate Urine Bilirubin Urine Urobilinogen Ur Leukocyte Esterase Urine WBC (Auto) Urine RBC (Auto) Ur Squamous Epith Cells Urine Bacteria Ur Random Creatinine Urine Opiates Screen Urine Methadone Screen Ur Barbiturates Screen Ur Phencyclidine Scrn Ur Amphetamines Screen U Benzodiazepines Scrn U Oth Cocaine Metabols U Cannabinoids Screen Blood Type Antibody Screen - Imaging and Cardiology CT scan - abdomen Status: Image reviewed by me, Report reviewed by me CT scan - pelvis Status: Image reviewed by me, Report reviewed by me Additional comment: Additionally X-rays reviewed by me as well Assessment & Plan - Assessment and Plan (Free Text) Assessment: 52F with necrotic leg ulcers bilaterally possible fascitis in multiorgan failure Plan: WBC 57.2 HGB 7 Renal failure: BUN/CR decreasing with dialysis now 87/5.5 Liver failure: AST/ALT 239/[address] LE if stabilizes If stable for OR possible operation Transfuse 2PRBC and 2FFP D/W Dr. Lucrecia Sherwood PGY2 - Date & Time Date: 04/02/18 Time: 00:25 <Bg Singer - Last Filed: 04/08/18 21:57> Meds - Medications Medications: Current Medications Albumin Human (Albumin Human 25% (12.5 Gm/50 Ml)) 25 gm IV MWF PRN PRN Reason: Other Albuterol/Ipratropium (Duoneb 3 Mg/0.5 Mg (3 Ml) Ud) 3 ml INH RQ6 PRN PRN Reason: Shortness of Breath Last Admin: 04/03/18 13:37 Dose: 3 ml Ascorbic Acid (Vitamin C 500 Mg Tab) 500 mg PO BID [facility] Last Admin: 04/08/18 18:18 Dose: 500 mg Calcium Acetate (Phoslo) 1,334 mg PO TIDCC [facility] Last Admin: 04/08/18 18:18 Dose: 1,334 mg Ergocalciferol (Drisdol 50,000 Intl Units Cap) 1 cap PO Q7D [facility] Last Admin: 04/04/18 12:11 Dose: 1 cap Ferrous Gluconate (Fergon) 324 mg PO TID [facility] Last Admin: 04/08/18 18:18 Dose: 324 mg Heparin Sodium (Porcine) (Heparin) 5,000 units SC Q12 [facility] Last Admin: 04/08/18 21:34 Dose: 5,000 units Doxycycline Hyclate 100 mg/ (Sodium Chloride) 100 mls @ 100 mls/hr IVPB Q12H [facility] PRN Reason: Protocol Last Admin: 04/08/18 12:37 Dose: 100 mls/hr Ampicillin 2 gm/ Sodium (Chloride) 100 mls @ 200 mls/hr IVPB Q8H [facility] PRN Reason: Protocol Last Admin: 04/08/18 20:00 Dose: 200 mls/hr Meropenem 500 mg/ Sodium (Chloride) 100 mls @ 100 mls/hr IVPB Q12H [facility] PRN Reason: Protocol Stop: 04/14/18 23:31 Last Admin: 04/08/18 10:56 Dose: 100 mls/hr Multivitamins/Vitamin C (Multi-Delyn Liquid) 5 ml PO DAILY [facility] Last Admin: 04/08/18 10:55 Dose: 5 ml Pantoprazole Sodium (Protonix Inj) 40 mg IVP DAILY [facility] Last Admin: 04/08/18 10:55 Dose: 40 mg Silver Sulfadiazine (Silvadene 1%) 0 ea TOP DAILY [facility] Last Admin: 04/08/18 11:13 Dose: 1 applic Results - Vital Signs Recent Vital Signs: Last Vital Signs Temp 97.2 F L 04/08/18 16:00 Pulse 99 H 04/08/18 19:02 Resp 21 04/08/18 19:02 BP 102/63 04/08/18 19:02 Pulse Ox 100 04/08/18 19:02 - Labs Result Diagrams: 04/08/18 07:04 04/08/18 07:01 Labs: Laboratory Results - last 24 hr 04/03/18 04/05/18 04/06/18 18:23 07:21 08:41 WBC RBC Hgb Hct MCV MCH MCHC RDW Plt Count MPV Neut % (Auto) Lymph % (Auto) Divide % (Auto) Eos % (Auto) Baso % (Auto) Neut # (Auto) Lymph # (Auto) Divide # (Auto) Eos # (Auto) Baso # (Auto) Neutrophils % (Manual) Band Neutrophils % Lymphocytes % (Manual) Monocytes % (Manual) Platelet Estimate Polychromasia Hypochromasia (manual) Anisocytosis (manual) Macrocytosis (manual) Sodium Potassium Chloride Carbon Dioxide Anion Gap BUN Creatinine Est GFR ( Amer) Est GFR (Non-Af Amer) Random Glucose Calcium Phosphorus Magnesium Total Bilirubin AST ALT Alkaline Phosphatase Total Protein Albumin Globulin Albumin/Globulin Ratio UF Heparin Interp Negative Random Vancomycin Cycl Citrul Peptide IgG MAYI Screen Negative MAYI Titer TNP MAYI Pattern TNP SS-A Antibody <1.0 neg SS-B Antibody <1.0 neg Sm (Brandt) Antibody <1.0 neg SM/BLOW MOLD TECHNICIAN Antibody <1.0 neg Scl-70 Antibody <1.0 neg Ribosomal P Prot Ab <1.0 neg Anti-Mitochondrial Titr TNP Anti-Mitochondrial Ab Negative Actin IgG Antibody <20 Heparin-induced Plt Ab Negative GODWIN UFH Low Dose 0.1 0 GODWIN UFH Low Dose 0.5 1 [facility]WIN UFH High Dose 100 0 Complement C3 79 L Complement C4 18 C. difficile Ag & Toxin Blood Type O POSITIVE Antibody Screen Negative 04/06/18 04/08/18 04/08/18 12:12 07:01 07:04 WBC 26.3 H RBC 2.75 L Hgb 7.7 L Hct 22.8 L MCV 82.9 MCH 28.0 MCHC 33.8 RDW 18.3 H Plt Count 87 L MPV 10.0 Neut % (Auto) 93.3 H Lymph % (Auto) 3.1 L Divide % (Auto) 3.4 Eos % (Auto) 0.1 Baso % (Auto) 0.1 Neut # (Auto) 24.5 H Lymph # (Auto) 0.8 L Divide # (Auto) 0.9 H Eos # (Auto) 0.0 Baso # (Auto) 0.0 Neutrophils % (Manual) 92 H Band Neutrophils % 1 Lymphocytes % (Manual) 2 L Monocytes % (Manual) 5 Platelet Estimate Decreased L Polychromasia Slight Hypochromasia (manual) Slight Anisocytosis (manual) Slight Macrocytosis (manual) Slight Sodium 133 Potassium 3.4 L Chloride 97 L Carbon Dioxide 25 Anion Gap 15 BUN 43 H Creatinine 1.7 H Est GFR ( Amer) 38 Est GFR (Non-Af Amer) 31 Random Glucose 65 Calcium 7.7 L Phosphorus 4.7 H Magnesium 2.0 Total Bilirubin 0.7 AST 22 ALT 31 Alkaline Phosphatase 135 H Total Protein 4.3 L Albumin 2.1 L Globulin 2.2 Albumin/Globulin Ratio 1.0 UF Heparin Interp Random Vancomycin Cycl Citrul Peptide IgG <16 MAYI Screen MAYI Titer MAYI Pattern SS-A Antibody SS-B Antibody Sm (Brandt) Antibody SM/BLOW MOLD TECHNICIAN Antibody Scl-70 Antibody Ribosomal P Prot Ab Anti-Mitochondrial Titr Anti-Mitochondrial Ab Actin IgG Antibody Heparin-induced Plt Ab GODWIN UFH Low Dose 0.1 GODWIN UFH Low Dose 0.5 GODWIN UFH High Dose 100 Complement C3 Complement C4 C. difficile Ag & Toxin Blood Type Antibody Screen 04/08/18 04/08/18 07:05 14:56 WBC RBC Hgb Hct MCV MCH MCHC RDW Plt Count MPV Neut % (Auto) Lymph % (Auto) Divide % (Auto) Eos % (Auto) Baso % (Auto) Neut # (Auto) Lymph # (Auto) Divide # (Auto) Eos # (Auto) Baso # (Auto) Neutrophils % (Manual) Band Neutrophils % Lymphocytes % (Manual) Monocytes % (Manual) Platelet Estimate Polychromasia Hypochromasia (manual) Anisocytosis (manual) Macrocytosis (manual) Sodium Potassium Chloride Carbon Dioxide Anion Gap BUN Creatinine Est GFR ( Amer) Est GFR (Non-Af Amer) Random Glucose Calcium Phosphorus Magnesium Total Bilirubin AST ALT Alkaline Phosphatase Total Protein Albumin Globulin Albumin/Globulin Ratio UF Heparin Interp Random Vancomycin 18.5 Cycl Citrul Peptide IgG MAYI Screen MAYI Titer MAYI Pattern SS-A Antibody SS-B Antibody Sm (Brandt) Antibody SM/BLOW MOLD TECHNICIAN Antibody Scl-70 Antibody Ribosomal P Prot Ab Anti-Mitochondrial Titr Anti-Mitochondrial Ab Actin IgG Antibody Heparin-induced Plt Ab GODWIN UFH Low Dose 0.1 GODWIN UFH Low Dose 0.5 GODWIN UFH High Dose 100 Complement C3 Complement C4 C. difficile Ag & Toxin Negative Blood Type Antibody Screen Attending/Attestation - Attestation I have personally seen and examined this patient.: Yes I have fully participated in the care of the patient.: Yes I have reviewed all pertinent clinical information: Yes Notes (Text): Pt was seen and examined at bedside Agree with above note and assessment Pt with Cellulitis and spreading skin infection of whole body Labs and radiology reviewed Ass: MODS, Severe acidosis, septic shock Plan : Hemodialysis and ICU care IV antibiotics as per ID Very poor prognosis Local wound care of open wounds Poor candidate for any surgical intervention Plan d.w primary team in detail Risk and benefit explained in detail.
[2018-04-02 05:55] LABS: ABG ALLEN TEST POS; ARTERIAL BLOOD GAS HCO3 17.8 mmol/L (21-28); ARTERIAL BLOOD GAS HEMOGLOBIN 8.1 g/dL (11.7-17.4); ARTERIAL BLOOD GAS O2 SAT 98.2 % (95-98); ARTERIAL BLOOD GAS PCO2 18 mm/Hg (35-45); ARTERIAL BLOOD GAS PH 7.47 (7.35-7.45); ARTERIAL BLOOD GAS PO2 193 mm/Hg (80-100); ARTERIAL BLOOD GAS TCO2 13.7 mmol/L (22-28)
[2018-04-02 06:41] LABS: BASO # 0.1 K/uL (0.0-0.2); BASO % 0.1 % (0.0-2.0); EOS # 0.1 K/uL (0.0-0.7); EOS % 0.3 % (0.0-4.0); HEMOGLOBIN 7.7 g/dL (11.0-16.0); LYMPH # 0.9 K/uL (1.0-4.3); MEAN CELL VOLUME 75.4 fL (81.0-99.0); MEAN CORPUSCULAR HEMOGLOBIN 24.9 pg (27.0-31.0); MEAN CORPUSCULAR HGB CONC 33.1 g/dL (33.0-37.0); MEAN PLATELET VOLUME 7.5 fL (7.2-11.7); MONO # 0.7 K/uL (0.0-0.8); MONO % 1.5 % (0.0-10.0); NEUT # 42.8 K/uL (1.8-7.0); NEUT % 96.1 % (50.0-75.0); NRBC % 0.4 % (0.0-2.0); PLATELET COUNT 333 K/uL (130-400); RBC 3.08 Mil/uL (3.80-5.20); RED CELL DISTRIBUTION WIDTH 28.6 % (11.5-14.5)
[2018-04-02] MEDS ORDERED: Dextrose 50% SYRINGE Inj (50 ml) ONE (06:45)
[2018-04-02 06:47] LABS: WHITE BLOOD COUNT 44.6 K/uL (4.8-10.8)
[2018-04-02] MEDS ORDERED: Dextrose 50% SYRINGE Inj (50 ml) IV STA (06:55)
[2018-04-02 06:59] LABS: IRON 11 ug/dL (37-170)
[2018-04-02 07:08] LABS: % IRON SATURATION 7 (20-55); TOTAL IRON BINDING CAPACITY 144 ug/dL (250-450)
[2018-04-02 07:14] LABS: ALB/GLOB RATIO 0.8 (1.0-2.1); ALBUMIN 1.9 g/dL (3.5-5.0); CALCIUM 5.9 mg/dl (8.6-10.4)
[2018-04-02 08:45] LABS: BANDS 5 % (0-2); LYMPHOCYTE 1 % (20-40); MONOCYTE 1 % (0-10); NEUTROPHIL 93 % (50-75); TOTAL CELLS COUNTED 100
[2018-04-02 08:46] LABS: ANISOCYTOSIS MODERATE; HYPOCHROMIC SLIGHT; MICROCYTOSIS SLIGHT; OVALOCYTES SLIGHT; PLATELET ESTIMATE NORMAL (NORMAL); POIKILOCYTOSIS SLIGHT; POLYCHROMIC SLIGHT
[2018-04-02 08:47] LABS: SCHISTOCYTES SLIGHT; SPHEROCYTES SLIGHT; TEARDROP CELLS SLIGHT
[2018-04-02 08:48] LABS: BURR CELLS SLIGHT
[2018-04-02 08:52] LABS: HEPATITIS B SURFACE AG Negative (NEGATIVE)
[2018-04-02 09:00] LABS: HEPATITIS B CORE AB NEGATIVE (NEGATIVE)
--- NOTE | 2018-04-02 09:05 | RAD ---
HISTORY: vented COMPARISON: Portable chest 04/01/2018. FINDINGS: LUNGS: Endotracheal tube is unchanged in position with these could be nasogastric tube now placed, entering into the hand with the tip off the image inferiorly. No acute infiltrate bilaterally. Right hemidiaphragm remains elevated. PLEURA: No significant pleural effusion identified, no pneumothorax apparent. CARDIOVASCULAR: Normal. OSSEOUS STRUCTURES: No significant abnormalities. VISUALIZED UPPER ABDOMEN: Normal. OTHER FINDINGS: None. IMPRESSION: Interval nasogastric tube placement as discussed above. Endotracheal tube is stable. No interval infiltrate, pleural effusion or pneumothorax. Stable elevated right hemidiaphragm.
--- NOTE | 2018-04-02 09:28 | RAD ---
HISTORY: sob COMPARISON: No prior. FINDINGS: Patient rotated toward the right limiting the evaluation. LUNGS: Patient rotated toward the right. No definite infiltrate pleural effusion or pneumothorax appreciable. Cardio mediastinal appears unremarkable as imaged. PLEURA: As above. CARDIOVASCULAR: As above. OSSEOUS STRUCTURES: No significant abnormalities. VISUALIZED UPPER ABDOMEN: Gas is seen distending the stomach at the left upper quadrant abdomen. OTHER FINDINGS: None. IMPRESSION: No acute infiltrate or pleural effusion grossly evident.
--- NOTE | 2018-04-02 09:32 | RAD ---
PROCEDURE: Radiographs of the bilateral Tibiae and Fibulae. HISTORY: cellulistis COMPARISON: None available. TECHNIQUE: Frontal and lateral views obtained. FINDINGS: BONES: No destructive bony lesion or fracture is appreciate bilaterally. However, there is diffuse osteopenia suggesting osteoporosis in this relatively young patient of 52 years and clinical correlation is advised. JOINT SPACES: RIGHT TIBIA: Normal. LEFT TIBIA: Normal. SOFT TISSUES: Reticular changes are identified throughout the subcutaneous fat of the bilateral lower extremities is suspicious for cellulitis. Clinically correlate. OTHER FINDINGS: None. IMPRESSION: No acute fracture dislocation bilateral tibia and fibula. Osteopenia suggests osteoporosis. Soft tissues may reflect cellulitis diffusely bilaterally.
--- NOTE | 2018-04-02 09:41 | RAD ---
HISTORY: vent COMPARISON: Portable chest 04/01/2018 21:47 p.m.. FINDINGS: LUNGS: Limited patchy density is question remaining at the right apex medially versus vascular overlap due to rotation of the patient toward the right once again. Remaining lung vaca appear clear otherwise. Endotracheal tube is unchanged in position. Right hemidiaphragm elevation stable. PLEURA: No significant pleural effusion identified, no pneumothorax apparent. CARDIOVASCULAR: Normal. OSSEOUS STRUCTURES: No significant abnormalities. VISUALIZED UPPER ABDOMEN: Normal. OTHER FINDINGS: None. IMPRESSION: Vascular overlap versus limited patchy patchy airspace density medial right apex with remaining lung vaca clear. Right hemidiaphragm elevation unchanged.
[2018-04-02] MEDS ORDERED: Multiple Vitamins Oral Solution PO SCH (10:00)
--- NOTE | 2018-04-02 10:01 | CP.PCM.PN ---
Subjective - Date & Time of Evaluation Date of Evaluation: 04/02/18 Time of Evaluation: 10:01 - Subjective Subjective: Discussed with hospitalist on duty, there are [facility] or documented in chart which show hydronephrosi. The hospatilist on duty is not aware of any imaging tests showing hydro. Suggest get documentation of any imaging tests done at [facility] as well as any + urine cultures. I would also suggest getting a ct scan now to evalute Gu tract. Objective - Vital Signs/Intake and Output Vital Signs (last 24 hours): Temp Pulse Resp BP Pulse Ox 98.9 F 97 H 12 113/64 100 04/02/18 04:00 04/02/18 09:00 04/02/18 09:00 04/02/18 08:57 04/02/18 09:00 Intake and Output: 04/02/18 04/02/18 06:59 18:59 Intake Total 4065 Output Total 50 Balance 4015 - Medications Medications: Current Medications Albumin Human (Albumin Human 25% (12.5 Gm/50 Ml)) 12.5 gm IV Q12 [facility] Last Admin: 04/01/18 22:54 Dose: 12.5 gm Ascorbic Acid (Vitamin C 500 Mg Tab) 500 mg PO BID NOLAN Meropenem 500 mg/ Sodium (Chloride) 100 mls @ 100 mls/hr IVPB Q8 [facility]OLAN PRN Reason: Protocol Last Admin: 04/02/18 05:12 Dose: 100 mls/hr Sodium Chloride (Sodium Chloride 0.9%) 1,000 mls @ 100 mls/hr IV .Q10H [facility] Last Admin: 04/02/18 07:48 Dose: 100 mls/hr Vancomycin/Sodium Chloride (Vancomycin 1 Gm/Ns 200 Ml) 1 gm in 200 mls @ 166.7 mls/hr IVPB Q48H [facility]OLAN PRN Reason: Protocol Stop: 04/06/18 18:01 Last Admin: 04/01/18 18:05 Dose: Not Given Dopamine HCl/Dextrose (Dopamine 400mg/250ml D5w) 400 mg in 250 mls @ 4.093 mls/ hr IV .Q24H PRN; Protocol; 2 MCG/KG/MIN PRN Reason: TITRATE PER MD ORDER Clindamycin Phosphate 300 mg/ (Sodium Chloride) 52 mls @ 100 mls/hr IVPB Q6H [facility]OLAN PRN Reason: Protocol Last Admin: 04/02/18 03:22 Dose: 100 mls/hr Linezolid (Zyvox 600mg/300ml D5w) 600 mg in 300 mls @ 200 mls/hr IVPB Q12 NOLAN PRN Reason: Protocol Last Admin: 04/01/18 22:40 Dose: 200 mls/hr Fentanyl Citrate 2,500 mcg/ (Sodium Chloride) 250 mls @ 10.94 mls/hr IV .[id number] PRN; 2 MCG/KG/HR PRN Reason: Protocol Last Titration: 04/02/18 01:47 Dose: 1 mcg/kg/hr, 5.5 mls/hr Dextrose (Dextrose 10% In Water) 500 mls @ 30 mls/hr IV .[id number] [facility]OLAN Last Admin: 04/02/18 07:47 Dose: 30 mls/hr Calcium Gluconate 2,000 mg/ (Sodium Chloride) 270 mls @ 0 mls/hr IVPB ONCE ONE PRN Reason: Per Protocol Stop: 04/02/18 09:56 Lorazepam (Ativan) 2 mg IVP Q6H PRN PRN Reason: Anxiety Last Admin: 04/01/18 22:46 Dose: 2 mg Methylprednisolone (Solu-Medrol) 40 mg IVP Q12H NOLAN Stop: 04/04/18 06:01 Last Admin: 04/02/18 05:11 Dose: 40 mg Multivitamins/Vitamin C (Multi-Delyn Liquid) 5 ml PO DAILY [facility] Pantoprazole Sodium (Protonix Inj) 40 mg IVP DAILY NOLAN - Labs Labs: 04/02/18 06:34 04/02/18 06:37 PT 15.5 SECONDS (9.7-12.2) H 04/01/18 21:45 INR 1.4 04/01/18 21:45 APTT 32 SECONDS (21-34) 04/01/18 21:45
[2018-04-02] MEDS: Albumin Human 25% (12.5 gm/50 ml) IV SCH ×2 (10:39→21:02)
[2018-04-02 10:40] LABS: CREATININE, RANDOM URINE 37.3 mg/dL
[2018-04-02] MEDS: Linezolid 600 mg in D5W 300 ml 600 MG/300 ML BAG IVPB SCH ×2 (10:40→22:44)
--- NOTE | 2018-04-02 11:00 | CP.CCUPN ---
CCU Subjective - Physician Review Subjective (Free Text): Patient intubated not responsive, mother at bedside stated patient did not follow up with doctor, patient had more than 30 lbs weight loss over few months , patient was not able to walk up stairs before cruise. No information could be obtained regarding events that transpirire on cruise ship? 04/02/18 10:57 Critical Care Time Spent (in minutes): 55 CCU Objective - Vital Signs / Intake & Output Vital Signs (Last 4 hours): Vital Signs Pulse Resp BP Pulse Ox 04/02/18 09:00 97 H 12 100 04/02/18 08:57 95 H 14 113/64 99 04/02/18 08:45 95 H 13 99 04/02/18 08:30 95 H 14 99 04/02/18 08:27 95 H 12 112/61 99 04/02/18 08:15 95 H 15 99 04/02/18 08:00 97 H 12 99 04/02/18 07:57 97 H 16 113/61 99 04/02/18 07:49 97 H 14 110/62 98 04/02/18 07:45 98 H 14 99 04/02/18 07:34 98 H 15 118/63 99 04/02/18 07:30 98 H 14 100 04/02/18 07:19 99 H 15 115/60 99 04/02/18 07:15 99 H 16 100 04/02/18 07:04 97 H 15 118/62 98 04/02/18 07:00 96 H 15 100 Intake and Output (Last 8hrs): Intake & Output 04/01/18 04/02/18 04/02/18 22:59 06:59 14:59 Intake Total 1660 3000 Output Total 150 0 Balance 1510 3000 Weight 120 lb 9.486 oz 121 lb 4.068 oz Intake: IV 50 Intake, IV Amount 975 2100 Left Antecubital 700 500 Right Antecubital 275 400 Right Wrist 50 right fem 1150 Oral 0 Blood Product 605 650 Apheresis Rbc Cp2d As3 Lr 280 1st Unit [id number] Red Blood Cells Cpd As1 325 Lr Unit [id number] Red Blood Cells Cpd As1 325 Lr Unit [id number] Other 80 200 Apheresis Rbc Cp2d As3 Lr 40 1st Unit [id number] Red Blood Cells Cpd As1 40 Lr Unit [id number] Red Blood Cells Cpd As1 100 Lr Unit [id number] Output: Urine 150 0 Urethral ([place]) 150 0 Other: Voiding Method Indwelling Catheter # Bowel Movements 0 - Physical Exam Physical Exam Limitations: Positive for: Clinical Condition Head: Positive for: Atraumatic Mouth: Positive for: Moist Mucous Membranes Respiratory/Chest: Positive for: Good Air Exchange. Negative for: Respiratory Distress, Accessory Muscle Use Abdomen: Positive for: Other (abdomen reveals a 5 cm circular bulb no Bowel sounds in bulb) Upper Extremity: Negative for: Cyanosis Lower Extremity: Positive for: Other (non-blanching ecchymotic lesions covering more than 25 percent of lower and abdomen) - Medications Active Medications: Active Medications Generic Name Dose Route Start Last Admin Trade Name Freq PRN Reason Stop Dose Admin Albumin Human 12.5 gm 04/01/18 22:30 04/02/18 10:39 Albumin Human 25% (12.5 Gm/50 Ml) IV 12.5 gm Q12 NOLAN Administration Ascorbic Acid 500 mg 04/02/18 10:00 04/02/18 10:38 Vitamin C 500 Mg Tab PO 500 mg BID NOLAN Administration Meropenem 500 mg/ Sodium 100 mls @ 100 mls/hr 04/01/18 22:00 04/02/18 05:12 Chloride IVPB 100 mls/hr Q8 NOLAN Administration Protocol Sodium Chloride 1,000 mls @ 100 mls/hr 04/01/18 18:00 04/02/18 07:48 Sodium Chloride 0.9% IV 100 mls/hr .Q10H NOLAN Administration Vancomycin/Sodium Chloride 1 gm in 200 mls @ 166.7 mls/hr 04/01/18 18:00 11/07 18:05 Vancomycin 1 Gm/Ns 200 Ml IVPB 04/06/18 18:01 Not Given Q48H NOLAN Protocol Dopamine HCl/Dextrose 400 mg in 250 mls @ 4.093 mls/hr 04/01/18 18:50 Dopamine 400mg/250ml D5w IV .Q24H PRN TITRATE PER MD ORDER Protocol 2 MCG/KG/MIN Clindamycin Phosphate 300 mg/ 52 mls @ 100 mls/hr 04/01/18 21:45 04/02/18 10: 39 Sodium Chloride IVPB 100 mls/hr Q6H NOLAN Administration Protocol Linezolid 600 mg in 300 mls @ 200 mls/hr 04/01/18 22:00 04/02/18 10:40 Zyvox 600mg/300ml D5w IVPB 200 mls/hr Q12 NOLAN Administration Protocol Fentanyl Citrate 2,500 mcg/ 250 mls @ 10.94 mls/hr 04/01/18 22:30 04/02/18 01 :47 Sodium Chloride IV 1 mcg/kg/hr .[id number] PRN 5.5 mls/hr Protocol Titration 2 MCG/KG/HR Dextrose 500 mls @ 30 mls/hr 04/02/18 07:00 04/02/18 07:47 Dextrose 10% In Water IV 30 mls/hr .[id number] NOLAN Administration Doxycycline Hyclate 100 mg/ 100 mls @ 100 mls/hr 04/02/18 11:00 Sodium Chloride IVPB Q12H NOLAN Protocol Lorazepam 2 mg 04/01/18 22:32 04/01/18 22:46 Ativan IVP 2 mg Q6H PRN Administration Anxiety Methylprednisolone 40 mg 04/02/18 06:00 04/02/18 05:11 Solu-Medrol IVP 04/04/18 06:01 40 mg Q12H NOLAN Administration Multivitamins/Vitamin C 5 ml 04/02/18 10:00 04/02/18 10:52 Multi-Delyn Liquid PO 5 ml DAILY NOLAN Administration Pantoprazole Sodium 40 mg 04/02/18 10:00 04/02/18 10:38 Protonix Inj IVP 40 mg DAILY NOLAN Administration - Patient Studies Lab Studies: Lab Studies 04/02/18 04/02/18 04/02/18 Range/Units 09:24 07:10 06:37 WBC (4.8-10.8) K/uL RBC (3.80-5.20) Mil/uL Hgb (11.0-16.0) g/dL Hct (34.0-47.0) % MCV (81.0-99.0) fL MCH (27.0-31.0) pg MCHC (33.0-37.0) g/dL RDW (11.5-14.5) % Plt Count (130-400) K/uL MPV (7.2-11.7) fL Neut % (Auto) (50.0-75.0) % Lymph % (Auto) (20.0-40.0) % [place] % (Auto) (0.0-10.0) % Eos % (Auto) (0.0-4.0) % Baso % (Auto) (0.0-2.0) % Neut # (Auto) (1.8-7.0) K/uL Lymph # (Auto) (1.0-4.3) K/uL [place] # (Auto) (0.0-0.8) K/uL Eos # (Auto) (0.0-0.7) K/uL Baso # (Auto) (0.0-0.2) K/uL Neutrophils % (Manual) (50-75) % Band Neutrophils % (0-2) % Lymphocytes % (Manual) (20-40) % Monocytes % (Manual) (0-10) % Nucleated RBC % (0-0) % Platelet Estimate (NORMAL) Giant Platelets Polychromasia Hypochromasia (manual) Poikilocytosis (manual Anisocytosis (manual) Microcytosis (manual) Macrocytosis (manual) Spherocytes Tear Drop Cells Ovalocytes Mekhi Cells Acanthocytes (Spur) Schistocytes PT (9.7-12.2) SECONDS INR APTT (21-34) SECONDS Fibrinogen (200-400) mg/dL Puncture Site pCO2 (35-45) mm/Hg pO2 (80-100) mm/Hg HCO3 (21-28) mmol/L ABG pH (7.35-7.45) ABG Total CO2 (22-28) mmol/L ABG O2 Saturation (95-98) % ABG Base Excess (-2.0-3.0) mmol/L ABG Hemoglobin (11.7-17.4) g/dL ABG Carboxyhemoglobin (0.5-1.5) % POC ABG HHb (Measured) (0.0-5.0) % ABG Methemoglobin (0.0-3.0) % Jann Test ABG Potassium (3.6-5.2) mmol/L A-a O2 Difference mm/Hg Respiratory Index Hgb O2 Saturation (95.0-98.0) % Sodium (132-148) mmol/l Chloride (98-107) mmol/L Glucose (65-105) mg/dl Lactate (0.7-2.1) mmol/L Liter Flow Vent Mode Mechanical Rate FiO2 % Tidal Volume PEEP Crit Value Called To Crit Value Called By Crit Value Read Back Blood Gas Notified Time Potassium (3.6-5.2) mmol/L Carbon Dioxide (22-30) mmol/L Anion Gap (10-20) BUN (7-17) mg/dL Creatinine (0.7-1.2) mg/dL Est GFR ( Amer) Est GFR (Non-Af Amer) POC Glucose (mg/dL) 159 H 63 L (65-110) mg/dL Random Glucose (65-105) mg/dL Uric Acid (2.2-7.5) mg/dL Calcium (8.6-10.4) mg/dl Phosphorus (2.5-4.5) mg/dL Magnesium (1.6-2.3) mg/dL Iron (37-170) ug/dL TIBC (250-450) ug/dL % Saturation (20-55) Ferritin ng/mL Total Bilirubin (0.2-1.3) mg/dL AST (14-36) U/L ALT (9-52) U/L Alkaline Phosphatase (38-126) U/L Lactate Dehydrogenase (313-618) U/L Total Creatine Kinase (30-135) U/L Total Protein (6.3-8.3) g/dL Albumin (3.5-5.0) g/dL Globulin (2.2-3.9) gm/dL Albumin/Globulin Ratio (1.0-2.1) 25-OH Vitamin D Total (30.0-100.0) NG/ML Arterial Blood Potassium (3.6-5.2) mmol/L Urine Color (YELLOW) Urine Clarity (Clear) Urine pH (5.0-8.0) Ur Specific [place] (1.003-1.030) Urine Protein (NEGATIVE) mg/dL Urine Glucose (UA) (Normal) mg/dL Urine Ketones (NEGATIVE) mg/dL Urine Blood (NEGATIVE) Urine Nitrate (NEGATIVE) Urine Bilirubin (NEGATIVE) Urine Urobilinogen (0.2-1.0) mg/dL Ur Leukocyte Esterase (Negative) Arnoldo/uL Urine WBC (Auto) (0-5) /hpf Urine RBC (Auto) (0-3) /hpf Ur Squamous Epith Cells (0-5) /hpf Urine Bacteria (<OCC) Ur Random Creatinine 37.3 mg/dL U Random Total Protein Cancelled Ur Random Sodium 86 mmol/L Urine Opiates Screen (NEGATIVE) Urine Methadone Screen (NEGATIVE) Ur Barbiturates Screen (NEGATIVE) Ur Phencyclidine Scrn (NEGATIVE) Ur Amphetamines Screen (NEGATIVE) U Benzodiazepines Scrn (NEGATIVE) U Oth Cocaine Metabols (NEGATIVE) U Cannabinoids Screen (NEGATIVE) Hep Bs Antigen (NEGATIVE) Hep Bs Antibody (NEGATIVE) Hep B Core IgM Ab (NEGATIVE) Blood Type Antibody Screen 04/02/18 04/02/18 04/02/18 Range/Units 06:37 06:37 06:37 WBC (4.8-10.8) K/uL RBC (3.80-5.20) Mil/uL Hgb (11.0-16.0) g/dL Hct (34.0-47.0) % MCV (81.0-99.0) fL MCH (27.0-31.0) pg MCHC (33.0-37.0) g/dL RDW (11.5-14.5) % Plt Count (130-400) K/uL MPV (7.2-11.7) fL Neut % (Auto) (50.0-75.0) % Lymph % (Auto) (20.0-40.0) % [place] % (Auto) (0.0-10.0) % Eos % (Auto) (0.0-4.0) % Baso % (Auto) (0.0-2.0) % Neut # (Auto) (1.8-7.0) K/uL Lymph # (Auto) (1.0-4.3) K/uL [place] # (Auto) (0.0-0.8) K/uL Eos # (Auto) (0.0-0.7) K/uL Baso # (Auto) (0.0-0.2) K/uL Neutrophils % (Manual) (50-75) % Band Neutrophils % (0-2) % Lymphocytes % (Manual) (20-40) % Monocytes % (Manual) (0-10) % Nucleated RBC % (0-0) % Platelet Estimate (NORMAL) Giant Platelets Polychromasia Hypochromasia (manual) Poikilocytosis (manual Anisocytosis (manual) Microcytosis (manual) Macrocytosis (manual) Spherocytes Tear Drop Cells Ovalocytes M[place]hi Cells Acanthocytes (Spur) Schistocytes PT (9.7-12.2) SECONDS INR APTT (21-34) SECONDS Fibrinogen (200-400) mg/dL Puncture Site pCO2 (35-45) mm/Hg pO2 (80-100) mm/Hg HCO3 (21-28) mmol/L ABG pH (7.35-7.45) ABG Total CO2 (22-28) mmol/L ABG O2 Saturation (95-98) % ABG Base Excess (-2.0-3.0) mmol/L ABG Hemoglobin (11.7-17.4) g/dL ABG Carboxyhemoglobin (0.5-1.5) % POC ABG HHb (Measured) (0.0-5.0) % ABG Methemoglobin (0.0-3.0) % Jann Test ABG Potassium (3.6-5.2) mmol/L A-a O2 Difference mm/Hg Respiratory Index Hgb O2 Saturation (95.0-98.0) % Sodium 143 (132-148) mmol/l Chloride 109 H (98-107) mmol/L Glucose (65-105) mg/dl Lactate (0.7-2.1) mmol/L Liter Flow Vent Mode Mechanical Rate FiO2 % Tidal Volume PEEP Crit Value Called To Crit Value Called By Crit Value Read Back Blood Gas Notified Time Potassium 4.9 (3.6-5.2) mmol/L Carbon Dioxide 13 L (22-30) mmol/L Anion Gap 26 H (10-20) BUN 89 H (7-17) mg/dL Creatinine 5.7 H (0.7-1.2) mg/dL Est GFR ( Amer) 9 Est GFR (Non-Af Amer) 8 POC Glucose (mg/dL) (65-110) mg/dL Random Glucose 63 L (65-105) mg/dL Uric Acid (2.2-7.5) mg/dL Calcium 5.9 L* (8.6-10.4) mg/dl Phosphorus 7.9 H (2.5-4.5) mg/dL Magnesium 1.5 L (1.6-2.3) mg/dL Iron 11 L (37-170) ug/dL TIBC 144 L (250-450) ug/dL % Saturation 7 L (20-55) Ferritin 107.0 ng/mL Total Bilirubin 0.4 (0.2-1.3) mg/dL AST 151 H D (14-36) U/L ALT 93 H D (9-52) U/L Alkaline Phosphatase 181 H D (38-126) U/L Lactate Dehydrogenase (313-618) U/L Total Creatine Kinase 1508 H (30-135) U/L Total Protein 4.3 L (6.3-8.3) g/dL Albumin 1.9 L (3.5-5.0) g/dL Globulin 2.3 (2.2-3.9) gm/dL Albumin/Globulin Ratio 0.8 L (1.0-2.1) 25-OH Vitamin D Total < 12.8 L (30.0-100.0) NG/ML Arterial Blood Potassium (3.6-5.2) mmol/L Urine Color (YELLOW) Urine Clarity (Clear) Urine pH (5.0-8.0) Ur Specific [place] (1.003-1.030) Urine Protein (NEGATIVE) mg/dL Urine Glucose (UA) (Normal) mg/dL Urine Ketones (NEGATIVE) mg/dL Urine Blood (NEGATIVE) Urine Nitrate (NEGATIVE) Urine Bilirubin (NEGATIVE) Urine Urobilinogen (0.2-1.0) mg/dL Ur Leukocyte Esterase (Negative) Arnoldo/uL Urine WBC (Auto) (0-5) /hpf Urine RBC (Auto) (0-3) /hpf Ur Squamous Epith Cells (0-5) /hpf Urine Bacteria (<OCC) Ur Random Creatinine mg/dL U Random Total Protein Ur Random Sodium mmol/L Urine Opiates Screen (NEGATIVE) Urine Methadone Screen (NEGATIVE) Ur Barbiturates Screen (NEGATIVE) Ur Phencyclidine Scrn (NEGATIVE) Ur Amphetamines Screen (NEGATIVE) U Benzodiazepines Scrn (NEGATIVE) U Oth Cocaine Metabols (NEGATIVE) U Cannabinoids Screen (NEGATIVE) Hep Bs Antigen (NEGATIVE) Hep Bs Antibody (NEGATIVE) Hep B Core IgM Ab (NEGATIVE) Blood Type Antibody Screen 04/02/18 04/02/18 04/02/18 Range/Units 06:35 06:34 06:34 WBC 44.6 H* (4.8-10.8) K/uL RBC 3.08 L (3.80-5.20) Mil/uL Hgb 7.7 L (11.0-16.0) g/dL Hct 23.2 L (34.0-47.0) % MCV 75.4 L D (81.0-99.0) fL MCH 24.9 L (27.0-31.0) pg MCHC 33.1 (33.0-37.0) g/dL RDW 28.6 H (11.5-14.5) % Plt Count 333 D (130-400) K/uL MPV 7.5 (7.2-11.7) fL Neut % (Auto) 96.1 H (50.0-75.0) % Lymph % (Auto) 2.0 L (20.0-40.0) % [place] % (Auto) 1.5 (0.0-10.0) % Eos % (Auto) 0.3 (0.0-4.0) % Baso % (Auto) 0.1 (0.0-2.0) % Neut # (Auto) 42.8 H (1.8-7.0) K/uL Lymph # (Auto) 0.9 L (1.0-4.3) K/uL [place] # (Auto) 0.7 (0.0-0.8) K/uL Eos # (Auto) 0.1 (0.0-0.7) K/uL Baso # (Auto) 0.1 (0.0-0.2) K/uL Neutrophils % (Manual) 93 H (50-75) % Band Neutrophils % 5 H (0-2) % Lymphocytes % (Manual) 1 L (20-40) % Monocytes % (Manual) 1 (0-10) % Nucleated RBC % (0-0) % Platelet Estimate Normal (NORMAL) Giant Platelets Polychromasia Slight Hypochromasia (manual) Slight Poikilocytosis (manual Slight Anisocytosis (manual) Moderate Microcytosis (manual) Slight Macrocytosis (manual) Slight Spherocytes Slight Tear Drop Cells Slight Ovalocytes Slight Mekhi Cells Slight Acanthocytes (Spur) Schistocytes Slight PT (9.7-12.2) SECONDS INR APTT (21-34) SECONDS Fibrinogen 229 (200-400) mg/dL Puncture Site pCO2 (35-45) mm/Hg pO2 (80-100) mm/Hg HCO3 (21-28) mmol/L ABG pH (7.35-7.45) ABG Total CO2 (22-28) mmol/L ABG O2 Saturation (95-98) % ABG Base Excess (-2.0-3.0) mmol/L ABG Hemoglobin (11.7-17.4) g/dL ABG Carboxyhemoglobin (0.5-1.5) % POC ABG HHb (Measured) (0.0-5.0) % ABG Methemoglobin (0.0-3.0) % Jann Test ABG Potassium (3.6-5.2) mmol/L A-a O2 Difference mm/Hg Respiratory Index Hgb O2 Saturation (95.0-98.0) % Sodium (132-148) mmol/l Chloride (98-107) mmol/L Glucose (65-105) mg/dl Lactate (0.7-2.1) mmol/L Liter Flow Vent Mode Mechanical Rate FiO2 % Tidal Volume PEEP Crit Value Called To Crit Value Called By Crit Value Read Back Blood Gas Notified Time Potassium (3.6-5.2) mmol/L Carbon Dioxide (22-30) mmol/L Anion Gap (10-20) BUN (7-17) mg/dL Creatinine (0.7-1.2) mg/dL Est GFR ( Amer) Est GFR (Non-Af Amer) POC Glucose (mg/dL) 64 L (65-110) mg/dL Random Glucose (65-105) mg/dL Uric Acid (2.2-7.5) mg/dL Calcium (8.6-10.4) mg/dl Phosphorus (2.5-4.5) mg/dL Magnesium (1.6-2.3) mg/dL Iron (37-170) ug/dL TIBC (250-450) ug/dL % Saturation (20-55) Ferritin ng/mL Total Bilirubin (0.2-1.3) mg/dL AST (14-36) U/L ALT (9-52) U/L Alkaline Phosphatase (38-126) U/L Lactate Dehydrogenase (313-618) U/L Total Creatine Kinase (30-135) U/L Total Protein (6.3-8.3) g/dL Albumin (3.5-5.0) g/dL Globulin (2.2-3.9) gm/dL Albumin/Globulin Ratio (1.0-2.1) 25-OH Vitamin D Total (30.0-100.0) NG/ML Arterial Blood Potassium (3.6-5.2) mmol/L Urine Color (YELLOW) Urine Clarity (Clear) Urine pH (5.0-8.0) Ur Specific [place] (1.003-1.030) Urine Protein (NEGATIVE) mg/dL Urine Glucose (UA) (Normal) mg/dL Urine Ketones (NEGATIVE) mg/dL Urine Blood (NEGATIVE) Urine Nitrate (NEGATIVE) Urine Bilirubin (NEGATIVE) Urine Urobilinogen (0.2-1.0) mg/dL Ur Leukocyte Esterase (Negative) Arnoldo/uL Urine WBC (Auto) (0-5) /hpf Urine RBC (Auto) (0-3) /hpf Ur Squamous Epith Cells (0-5) /hpf Urine Bacteria (<OCC) Ur Random Creatinine mg/dL U Random Total Protein Ur Random Sodium mmol/L Urine Opiates Screen (NEGATIVE) Urine Methadone Screen (NEGATIVE) Ur Barbiturates Screen (NEGATIVE) Ur Phencyclidine Scrn (NEGATIVE) Ur Amphetamines Screen (NEGATIVE) U Benzodiazepines Scrn (NEGATIVE) U Oth Cocaine Metabols (NEGATIVE) U Cannabinoids Screen (NEGATIVE) Hep Bs Antigen (NEGATIVE) Hep Bs Antibody (NEGATIVE) Hep B Core IgM Ab (NEGATIVE) Blood Type Antibody Screen 04/02/18 04/02/18 04/01/18 Range/Units 05:34 01:30 23:51 WBC (4.8-10.8) K/uL RBC (3.80-5.20) Mil/uL Hgb (11.0-16.0) g/dL Hct (34.0-47.0) % MCV (81.0-99.0) fL MCH (27.0-31.0) pg MCHC (33.0-37.0) g/dL RDW (11.5-14.5) % Plt Count (130-400) K/uL MPV (7.2-11.7) fL Neut % (Auto) (50.0-75.0) % Lymph % (Auto) (20.0-40.0) % [place] % (Auto) (0.0-10.0) % Eos % (Auto) (0.0-4.0) % Baso % (Auto) (0.0-2.0) % Neut # (Auto) (1.8-7.0) K/uL Lymph # (Auto) (1.0-4.3) K/uL [place] # (Auto) (0.0-0.8) K/uL Eos # (Auto) (0.0-0.7) K/uL Baso # (Auto) (0.0-0.2) K/uL Neutrophils % (Manual) (50-75) % Band Neutrophils % (0-2) % Lymphocytes % (Manual) (20-40) % Monocytes % (Manual) (0-10) % Nucleated RBC % (0-0) % Platelet Estimate (NORMAL) Giant Platelets Polychromasia Hypochromasia (manual) Poikilocytosis (manual Anisocytosis (manual) Microcytosis (manual) Macrocytosis (manual) Spherocytes Tear Drop Cells Ovalocytes [place]hi Cells Acanthocytes (Spur) Schistocytes PT (9.7-12.2) SECONDS INR APTT (21-34) SECONDS Fibrinogen (200-400) mg/dL Puncture Site R rad R rad pCO2 18 L* 15 L* (35-45) mm/Hg pO2 193 H 263 H (80-100) mm/Hg HCO3 17.8 L 18.8 L (21-28) mmol/L ABG pH 7.47 H 7.51 H (7.35-7.45) ABG Total CO2 13.7 L 12.5 L (22-28) mmol/L ABG O2 Saturation 98.2 H 98.0 (95-98) % ABG Base Excess -9.2 L -7.9 L (-2.0-3.0) mmol/L ABG Hemoglobin 8.1 L (11.7-17.4) g/dL ABG Carboxyhemoglobin 0.6 (0.5-1.5) % POC ABG HHb (Measured) 1.8 (0.0-5.0) % ABG Methemoglobin 1.7 (0.0-3.0) % Jann Test Pos Pos ABG Potassium 4.4 (3.6-5.2) mmol/L A-a O2 Difference 70.0 75.0 mm/Hg Respiratory Index 0.4 0.3 Hgb O2 Saturation 95.9 (95.0-98.0) % Sodium 138.0 (132-148) mmol/l Chloride 108.0 H (98-107) mmol/L Glucose 77 (65-105) mg/dl Lactate 2.3 H (0.7-2.1) mmol/L Liter Flow Vent Mode Prvc Prvc Mechanical Rate 16 16 FiO2 40.0 50.0 % Tidal Volume 450 450 PEEP 5 5 Crit Value Called To Dr ayesha hodge Crit Value Called By Carmenza doss rt Carmenza doss rt Crit Value Read Back Y Y Blood Gas Notified Time 555 33 Potassium (3.6-5.2) mmol/L Carbon Dioxide (22-30) mmol/L Anion Gap (10-20) BUN (7-17) mg/dL Creatinine (0.7-1.2) mg/dL Est GFR ( Amer) Est GFR (Non-Af Amer) POC Glucose (mg/dL) 70 (65-110) mg/dL Random Glucose (65-105) mg/dL Uric Acid (2.2-7.5) mg/dL Calcium (8.6-10.4) mg/dl Phosphorus (2.5-4.5) mg/dL Magnesium (1.6-2.3) mg/dL Iron (37-170) ug/dL TIBC (250-450) ug/dL % Saturation (20-55) Ferritin ng/mL Total Bilirubin (0.2-1.3) mg/dL AST (14-36) U/L ALT (9-52) U/L Alkaline Phosphatase (38-126) U/L Lactate Dehydrogenase (313-618) U/L Total Creatine Kinase (30-135) U/L Total Protein (6.3-8.3) g/dL Albumin (3.5-5.0) g/dL Globulin (2.2-3.9) gm/dL Albumin/Globulin Ratio (1.0-2.1) 25-OH Vitamin D Total (30.0-100.0) NG/ML Arterial Blood Potassium 4.4 (3.6-5.2) mmol/L Urine Color (YELLOW) Urine Clarity (Clear) Urine pH (5.0-8.0) Ur Specific [place] (1.003-1.030) Urine Protein (NEGATIVE) mg/dL Urine Glucose (UA) (Normal) mg/dL Urine Ketones (NEGATIVE) mg/dL Urine Blood (NEGATIVE) Urine Nitrate (NEGATIVE) Urine Bilirubin (NEGATIVE) Urine Urobilinogen (0.2-1.0) mg/dL Ur Leukocyte Esterase (Negative) Arnoldo/uL Urine WBC (Auto) (0-5) /hpf Urine RBC (Auto) (0-3) /hpf Ur Squamous Epith Cells (0-5) /hpf Urine Bacteria (<OCC) Ur Random Creatinine mg/dL U Random Total Protein Ur Random Sodium mmol/L Urine Opiates Screen (NEGATIVE) Urine Methadone Screen (NEGATIVE) Ur Barbiturates Screen (NEGATIVE) Ur Phencyclidine Scrn (NEGATIVE) Ur Amphetamines Screen (NEGATIVE) U Benzodiazepines Scrn (NEGATIVE) U Oth Cocaine Metabols (NEGATIVE) U Cannabinoids Screen (NEGATIVE) Hep Bs Antigen (NEGATIVE) Hep Bs Antibody (NEGATIVE) Hep B Core IgM Ab (NEGATIVE) Blood Type Antibody Screen 04/01/18 04/01/18 04/01/18 Range/Units 21:45 21:45 21:45 WBC 57.2 H* (4.8-10.8) K/uL RBC 3.01 L (3.80-5.20) Mil/uL Hgb 7.0 L (11.0-16.0) g/dL Hct 21.7 L (34.0-47.0) % MCV 72.1 L (81.0-99.0) fL MCH 23.4 L (27.0-31.0) pg MCHC 32.4 L (33.0-37.0) g/dL RDW 30.6 H (11.5-14.5) % Plt Count 485 H (130-400) K/uL MPV 7.2 (7.2-11.7) fL Neut % (Auto) 95.6 H (50.0-75.0) % Lymph % (Auto) 2.2 L (20.0-40.0) % [place] % (Auto) 1.5 (0.0-10.0) % Eos % (Auto) 0.5 (0.0-4.0) % Baso % (Auto) 0.2 (0.0-2.0) % Neut # (Auto) 54.7 H (1.8-7.0) K/uL Lymph # (Auto) 1.2 (1.0-4.3) K/uL [place] # (Auto) 0.9 H (0.0-0.8) K/uL Eos # (Auto) 0.3 (0.0-0.7) K/uL Baso # (Auto) 0.1 (0.0-0.2) K/uL Neutrophils % (Manual) (50-75) % Band Neutrophils % (0-2) % Lymphocytes % (Manual) (20-40) % Monocytes % (Manual) (0-10) % Nucleated RBC % (0-0) % Platelet Estimate (NORMAL) Giant Platelets Polychromasia Hypochromasia (manual) Poikilocytosis (manual Anisocytosis (manual) Microcytosis (manual) Macrocytosis (manual) Spherocytes Tear Drop Cells Ovalocytes [place] Cells Acanthocytes (Spur) Schistocytes PT 15.5 H (9.7-12.2) SECONDS INR 1.4 APTT 32 (21-34) SECONDS Fibrinogen (200-400) mg/dL Puncture Site pCO2 (35-45) mm/Hg pO2 (80-100) mm/Hg HCO3 (21-28) mmol/L ABG pH (7.35-7.45) ABG Total CO2 (22-28) mmol/L ABG O2 Saturation (95-98) % ABG Base Excess (-2.0-3.0) mmol/L ABG Hemoglobin (11.7-17.4) g/dL ABG Carboxyhemoglobin (0.5-1.5) % POC ABG HHb (Measured) (0.0-5.0) % ABG Methemoglobin (0.0-3.0) % Jann Test ABG Potassium (3.6-5.2) mmol/L A-a O2 Difference mm/Hg Respiratory Index Hgb O2 Saturation (95.0-98.0) % Sodium 142 (132-148) mmol/l Chloride 109 H (98-107) mmol/L Glucose (65-105) mg/dl Lactate (0.7-2.1) mmol/L Liter Flow Vent Mode Mechanical Rate FiO2 % Tidal Volume PEEP Crit Value Called To Crit Value Called By Crit Value Read Back Blood Gas Notified Time Potassium 4.3 (3.6-5.2) mmol/L Carbon Dioxide 12 L (22-30) mmol/L Anion Gap 26 H (10-20) BUN 87 H (7-17) mg/dL Creatinine 5.5 H (0.7-1.2) mg/dL Est GFR ( Amer) 10 Est GFR (Non-Af Amer) 8 POC Glucose (mg/dL) (65-110) mg/dL Random Glucose 43 L (65-105) mg/dL Uric Acid (2.2-7.5) mg/dL Calcium 6.7 L (8.6-10.4) mg/dl Phosphorus 6.9 H (2.5-4.5) mg/dL Magnesium 1.6 (1.6-2.3) mg/dL Iron (37-170) ug/dL TIBC (250-450) ug/dL % Saturation (20-55) Ferritin ng/mL Total Bilirubin 0.8 (0.2-1.3) mg/dL AST 239 H (14-36) U/L ALT 122 H (9-52) U/L Alkaline Phosphatase 247 H (38-126) U/L Lactate Dehydrogenase (313-618) U/L Total Creatine Kinase (30-135) U/L Total Protein 4.6 L (6.3-8.3) g/dL Albumin 2.0 L (3.5-5.0) g/dL Globulin 2.6 (2.2-3.9) gm/dL Albumin/Globulin Ratio 0.8 L (1.0-2.1) 25-OH Vitamin D Total (30.0-100.0) NG/ML Arterial Blood Potassium (3.6-5.2) mmol/L Urine Color (YELLOW) Urine Clarity (Clear) Urine pH (5.0-8.0) Ur Specific [place] (1.003-1.030) Urine Protein (NEGATIVE) mg/dL Urine Glucose (UA) (Normal) mg/dL Urine Ketones (NEGATIVE) mg/dL Urine Blood (NEGATIVE) Urine Nitrate (NEGATIVE) Urine Bilirubin (NEGATIVE) Urine Urobilinogen (0.2-1.0) mg/dL Ur Leukocyte Esterase (Negative) Arnoldo/uL Urine WBC (Auto) (0-5) /hpf Urine RBC (Auto) (0-3) /hpf Ur Squamous Epith Cells (0-5) /hpf Urine Bacteria (<OCC) Ur Random Creatinine mg/dL U Random Total Protein Ur Random Sodium mmol/L Urine Opiates Screen (NEGATIVE) Urine Methadone Screen (NEGATIVE) Ur Barbiturates Screen (NEGATIVE) Ur Phencyclidine Scrn (NEGATIVE) Ur Amphetamines Screen (NEGATIVE) U Benzodiazepines Scrn (NEGATIVE) U Oth Cocaine Metabols (NEGATIVE) U Cannabinoids Screen (NEGATIVE) Hep Bs Antigen (NEGATIVE) Hep Bs Antibody (NEGATIVE) Hep B Core IgM Ab (NEGATIVE) Blood Type Antibody Screen 04/01/18 04/01/18 04/01/18 Range/Units 20:10 19:09 19:09 WBC 64.5 H* (4.8-10.8) K/uL RBC 3.16 L (3.80-5.20) Mil/uL Hgb 7.5 L (11.0-16.0) g/dL Hct 22.5 L (34.0-47.0) % MCV 71.2 L (81.0-99.0) fL MCH 23.8 L (27.0-31.0) pg MCHC 33.4 (33.0-37.0) g/dL RDW 32.0 H (11.5-14.5) % Plt Count 534 H (130-400) K/uL MPV 8.3 (7.2-11.7) fL Neut % (Auto) 96.2 H (50.0-75.0) % Lymph % (Auto) 2.3 L (20.0-40.0) % [place] % (Auto) 0.9 (0.0-10.0) % Eos % (Auto) 0.4 (0.0-4.0) % Baso % (Auto) 0.2 (0.0-2.0) % Neut # (Auto) 62.1 H (1.8-7.0) K/uL Lymph # (Auto) 1.5 (1.0-4.3) K/uL [place] # (Auto) 0.6 (0.0-0.8) K/uL Eos # (Auto) 0.3 (0.0-0.7) K/uL Baso # (Auto) 0.1 (0.0-0.2) K/uL Neutrophils % (Manual) 88 H (50-75) % Band Neutrophils % 8 H (0-2) % Lymphocytes % (Manual) 3 L (20-40) % Monocytes % (Manual) 1 (0-10) % Nucleated RBC % 2 H (0-0) % Platelet Estimate Increased H (NORMAL) Giant Platelets Present Polychromasia Hypochromasia (manual) Slight Poikilocytosis (manual Moderate Anisocytosis (manual) Microcytosis (manual) Macrocytosis (manual) Spherocytes Tear Drop Cells Ovalocytes [place] Cells Acanthocytes (Spur) Slight Schistocytes Slight PT (9.7-12.2) SECONDS INR APTT (21-34) SECONDS Fibrinogen (200-400) mg/dL Puncture Site pCO2 (35-45) mm/Hg pO2 (80-100) mm/Hg HCO3 (21-28) mmol/L ABG pH (7.35-7.45) ABG Total CO2 (22-28) mmol/L ABG O2 Saturation (95-98) % ABG Base Excess (-2.0-3.0) mmol/L ABG Hemoglobin (11.7-17.4) g/dL ABG Carboxyhemoglobin (0.5-1.5) % POC ABG HHb (Measured) (0.0-5.0) % ABG Methemoglobin (0.0-3.0) % Jann Test ABG Potassium (3.6-5.2) mmol/L A-a O2 Difference mm/Hg Respiratory Index Hgb O2 Saturation (95.0-98.0) % Sodium (132-148) mmol/l Chloride (98-107) mmol/L Glucose (65-105) mg/dl Lactate (0.7-2.1) mmol/L Liter Flow Vent Mode Mechanical Rate FiO2 % Tidal Volume PEEP Crit Value Called To Crit Value Called By Crit Value Read Back Blood Gas Notified Time Potassium (3.6-5.2) mmol/L Carbon Dioxide (22-30) mmol/L Anion Gap (10-20) BUN (7-17) mg/dL Creatinine (0.7-1.2) mg/dL Est GFR ( Amer) Est GFR (Non-Af Amer) POC Glucose (mg/dL) (65-110) mg/dL Random Glucose (65-105) mg/dL Uric Acid (2.2-7.5) mg/dL Calcium (8.6-10.4) mg/dl Phosphorus (2.5-4.5) mg/dL Magnesium (1.6-2.3) mg/dL Iron (37-170) ug/dL TIBC (250-450) ug/dL % Saturation (20-55) Ferritin ng/mL Total Bilirubin (0.2-1.3) mg/dL AST (14-36) U/L ALT (9-52) U/L Alkaline Phosphatase (38-126) U/L Lactate Dehydrogenase (313-618) U/L Total Creatine Kinase (30-135) U/L Total Protein (6.3-8.3) g/dL Albumin (3.5-5.0) g/dL Globulin (2.2-3.9) gm/dL Albumin/Globulin Ratio (1.0-2.1) 25-OH Vitamin D Total (30.0-100.0) NG/ML Arterial Blood Potassium (3.6-5.2) mmol/L Urine Color (YELLOW) Urine Clarity (Clear) Urine pH (5.0-8.0) Ur Specific [place] (1.003-1.030) Urine Protein (NEGATIVE) mg/dL Urine Glucose (UA) (Normal) mg/dL Urine Ketones (NEGATIVE) mg/dL Urine Blood (NEGATIVE) Urine Nitrate (NEGATIVE) Urine Bilirubin (NEGATIVE) Urine Urobilinogen (0.2-1.0) mg/dL Ur Leukocyte Esterase (Negative) Arnoldo/uL Urine WBC (Auto) (0-5) /hpf Urine RBC (Auto) (0-3) /hpf Ur Squamous Epith Cells (0-5) /hpf Urine Bacteria (<OCC) Ur Random Creatinine mg/dL U Random Total Protein Ur Random Sodium mmol/L Urine Opiates Screen (NEGATIVE) Urine Methadone Screen (NEGATIVE) Ur Barbiturates Screen (NEGATIVE) Ur Phencyclidine Scrn (NEGATIVE) Ur Amphetamines Screen (NEGATIVE) U Benzodiazepines Scrn (NEGATIVE) U Oth Cocaine Metabols (NEGATIVE) U Cannabinoids Screen (NEGATIVE) Hep Bs Antigen (NEGATIVE) Hep Bs Antibody Negative (NEGATIVE) Hep B Core IgM Ab Negative (NEGATIVE) Blood Type Antibody Screen 04/01/18 04/01/18 04/01/18 Range/Units 19:09 19:09 19:09 WBC (4.8-10.8) K/uL RBC (3.80-5.20) Mil/uL Hgb (11.0-16.0) g/dL Hct (34.0-47.0) % MCV (81.0-99.0) fL MCH (27.0-31.0) pg MCHC (33.0-37.0) g/dL RDW (11.5-14.5) % Plt Count (130-400) K/uL MPV (7.2-11.7) fL Neut % (Auto) (50.0-75.0) % Lymph % (Auto) (20.0-40.0) % [place] % (Auto) (0.0-10.0) % Eos % (Auto) (0.0-4.0) % Baso % (Auto) (0.0-2.0) % Neut # (Auto) (1.8-7.0) K/uL Lymph # (Auto) (1.0-4.3) K/uL [place] # (Auto) (0.0-0.8) K/uL Eos # (Auto) (0.0-0.7) K/uL Baso # (Auto) (0.0-0.2) K/uL Neutrophils % (Manual) (50-75) % Band Neutrophils % (0-2) % Lymphocytes % (Manual) (20-40) % Monocytes % (Manual) (0-10) % Nucleated RBC % (0-0) % Platelet Estimate (NORMAL) Giant Platelets Polychromasia Hypochromasia (manual) Poikilocytosis (manual Anisocytosis (manual) Microcytosis (manual) Macrocytosis (manual) Spherocytes Tear Drop Cells Ovalocytes Reardan Cells Acanthocytes (Spur) Schistocytes PT (9.7-12.2) SECONDS INR APTT (21-34) SECONDS Fibrinogen (200-400) mg/dL Puncture Site pCO2 (35-45) mm/Hg pO2 (80-100) mm/Hg HCO3 (21-28) mmol/L ABG pH (7.35-7.45) ABG Total CO2 (22-28) mmol/L ABG O2 Saturation (95-98) % ABG Base Excess (-2.0-3.0) mmol/L ABG Hemoglobin (11.7-17.4) g/dL ABG Carboxyhemoglobin (0.5-1.5) % POC ABG HHb (Measured) (0.0-5.0) % ABG Methemoglobin (0.0-3.0) % Jann Test ABG Potassium (3.6-5.2) mmol/L A-a O2 Difference mm/Hg Respiratory Index Hgb O2 Saturation (95.0-98.0) % Sodium 146 (132-148) mmol/l Chloride 114 H (98-107) mmol/L Glucose (65-105) mg/dl Lactate (0.7-2.1) mmol/L Liter Flow Vent Mode Mechanical Rate FiO2 % Tidal Volume PEEP Crit Value Called To Crit Value Called By Crit Value Read Back Blood Gas Notified Time Potassium 5.4 H (3.6-5.2) mmol/L Carbon Dioxide 8 L* (22-30) mmol/L Anion Gap 29 H (10-20) BUN 136 H* (7-17) mg/dL Creatinine 8.1 H* (0.7-1.2) mg/dL Est GFR ( Amer) 6 Est GFR (Non-Af Amer) 5 POC Glucose (mg/dL) (65-110) mg/dL Random Glucose 64 L (65-105) mg/dL Uric Acid 13.3 H (2.2-7.5) mg/dL Calcium 6.3 L (8.6-10.4) mg/dl Phosphorus (2.5-4.5) mg/dL Magnesium (1.6-2.3) mg/dL Iron (37-170) ug/dL TIBC (250-450) ug/dL % Saturation (20-55) Ferritin ng/mL Total Bilirubin 0.7 (0.2-1.3) mg/dL AST 244 H (14-36) U/L ALT 120 H (9-52) U/L Alkaline Phosphatase 297 H D (38-126) U/L Lactate Dehydrogenase 2023 H (313-618) U/L Total Creatine Kinase 6254 H (30-135) U/L Total Protein 4.4 L (6.3-8.3) g/dL Albumin 1.9 L (3.5-5.0) g/dL Globulin 2.5 (2.2-3.9) gm/dL Albumin/Globulin Ratio 0.7 L (1.0-2.1) 25-OH Vitamin D Total (30.0-100.0) NG/ML Arterial Blood Potassium (3.6-5.2) mmol/L Urine Color Yellow (YELLOW) Urine Clarity Hazy (Clear) Urine pH 6.0 (5.0-8.0) Ur Specific [place] 1.012 (1.003-1.030) Urine Protein 2+ H (NEGATIVE) mg/dL Urine Glucose (UA) 1+ (Normal) mg/dL Urine Ketones Trace (NEGATIVE) mg/dL Urine Blood 3+ H (NEGATIVE) Urine Nitrate Negative (NEGATIVE) Urine Bilirubin Negative (NEGATIVE) Urine Urobilinogen Normal (0.2-1.0) mg/dL Ur Leukocyte Esterase 2+ H (Negative) Arnoldo/uL Urine WBC (Auto) 33 H (0-5) /hpf Urine RBC (Auto) 37 H (0-3) /hpf Ur Squamous Epith Cells 4 (0-5) /hpf Urine Bacteria Occ H (<OCC) Ur Random Creatinine 36.9 mg/dL U Random Total Protein Ur Random Sodium mmol/L Urine Opiates Screen Negative (NEGATIVE) Urine Methadone Screen Negative (NEGATIVE) Ur Barbiturates Screen Negative (NEGATIVE) Ur Phencyclidine Scrn Negative (NEGATIVE) Ur Amphetamines Screen Negative (NEGATIVE) U Benzodiazepines Scrn Negative (NEGATIVE) U Oth Cocaine Metabols Negative (NEGATIVE) U Cannabinoids Screen Negative (NEGATIVE) Hep Bs Antigen Negative (NEGATIVE) Hep Bs Antibody (NEGATIVE) Hep B Core IgM Ab (NEGATIVE) Blood Type Antibody Screen 04/01/18 04/01/18 Range/Units 18:50 17:51 WBC (4.8-10.8) K/uL RBC (3.80-5.20) Mil/uL Hgb (11.0-16.0) g/dL Hct (34.0-47.0) % MCV (81.0-99.0) fL MCH (27.0-31.0) pg MCHC (33.0-37.0) g/dL RDW (11.5-14.5) % Plt Count (130-400) K/uL MPV (7.2-11.7) fL Neut % (Auto) (50.0-75.0) % Lymph % (Auto) (20.0-40.0) % [place] % (Auto) (0.0-10.0) % Eos % (Auto) (0.0-4.0) % Baso % (Auto) (0.0-2.0) % Neut # (Auto) (1.8-7.0) K/uL Lymph # (Auto) (1.0-4.3) K/uL [place] # (Auto) (0.0-0.8) K/uL Eos # (Auto) (0.0-0.7) K/uL Baso # (Auto) (0.0-0.2) K/uL Neutrophils % (Manual) (50-75) % Band Neutrophils % (0-2) % Lymphocytes % (Manual) (20-40) % Monocytes % (Manual) (0-10) % Nucleated RBC % (0-0) % Platelet Estimate (NORMAL) Giant Platelets Polychromasia Hypochromasia (manual) Poikilocytosis (manual Anisocytosis (manual) Microcytosis (manual) Macrocytosis (manual) Spherocytes Tear Drop Cells Ovalocytes Reardan Cells Acanthocytes (Spur) Schistocytes PT (9.7-12.2) SECONDS INR APTT (21-34) SECONDS Fibrinogen (200-400) mg/dL Puncture Site Lfa pCO2 13 L* (35-45) mm/Hg pO2 122 H (80-100) mm/Hg HCO3 17.1 L (21-28) mmol/L ABG pH 7.49 H (7.35-7.45) ABG Total CO2 10.3 L (22-28) mmol/L ABG O2 Saturation 96.3 (95-98) % ABG Base Excess -10.1 L (-2.0-3.0) mmol/L ABG Hemoglobin (11.7-17.4) g/dL ABG Carboxyhemoglobin (0.5-1.5) % POC ABG HHb (Measured) (0.0-5.0) % ABG Methemoglobin (0.0-3.0) % Jann Test Pos ABG Potassium 4.7 (3.6-5.2) mmol/L A-a O2 Difference 575.0 mm/Hg Respiratory Index 4.7 Hgb O2 Saturation (95.0-98.0) % Sodium 143.0 (132-148) mmol/l Chloride 116.0 H (98-107) mmol/L Glucose 68 (65-105) mg/dl Lactate 2.3 H (0.7-2.1) mmol/L Liter Flow 15.0 Vent Mode Mechanical Rate FiO2 100.0 % Tidal Volume PEEP Crit Value Called To Helen Crit Value Called By [facility] Crit Value Read Back Y Blood Gas Notified Time 1854 Potassium (3.6-5.2) mmol/L Carbon Dioxide (22-30) mmol/L Anion Gap (10-20) BUN (7-17) mg/dL Creatinine (0.7-1.2) mg/dL Est GFR ( Amer) Est GFR (Non-Af Amer) POC Glucose (mg/dL) (65-110) mg/dL Random Glucose (65-105) mg/dL Uric Acid (2.2-7.5) mg/dL Calcium (8.6-10.4) mg/dl Phosphorus (2.5-4.5) mg/dL Magnesium (1.6-2.3) mg/dL Iron (37-170) ug/dL TIBC (250-450) ug/dL % Saturation (20-55) Ferritin ng/mL Total Bilirubin (0.2-1.3) mg/dL AST (14-36) U/L ALT (9-52) U/L Alkaline Phosphatase (38-126) U/L Lactate Dehydrogenase (313-618) U/L Total Creatine Kinase (30-135) U/L Total Protein (6.3-8.3) g/dL Albumin (3.5-5.0) g/dL Globulin (2.2-3.9) gm/dL Albumin/Globulin Ratio (1.0-2.1) 25-OH Vitamin D Total (30.0-100.0) NG/ML Arterial Blood Potassium 4.7 (3.6-5.2) mmol/L Urine Color (YELLOW) Urine Clarity (Clear) Urine pH (5.0-8.0) Ur Specific [place] (1.003-1.030) Urine Protein (NEGATIVE) mg/dL Urine Glucose (UA) (Normal) mg/dL Urine Ketones (NEGATIVE) mg/dL Urine Blood (NEGATIVE) Urine Nitrate (NEGATIVE) Urine Bilirubin (NEGATIVE) Urine Urobilinogen (0.2-1.0) mg/dL Ur Leukocyte Esterase (Negative) Arnoldo/uL Urine WBC (Auto) (0-5) /hpf Urine RBC (Auto) (0-3) /hpf Ur Squamous Epith Cells (0-5) /hpf Urine Bacteria (<OCC) Ur Random Creatinine mg/dL U Random Total Protein Ur Random Sodium mmol/L Urine Opiates Screen (NEGATIVE) Urine Methadone Screen (NEGATIVE) Ur Barbiturates Screen (NEGATIVE) Ur Phencyclidine Scrn (NEGATIVE) Ur Amphetamines Screen (NEGATIVE) U Benzodiazepines Scrn (NEGATIVE) U Oth Cocaine Metabols (NEGATIVE) U Cannabinoids Screen (NEGATIVE) Hep Bs Antigen (NEGATIVE) Hep Bs Antibody (NEGATIVE) Hep B Core IgM Ab (NEGATIVE) Blood Type O POSITIVE Antibody Screen Negative Laboratory Results - last 24 hr 04/01/18 04/01/18 04/01/18 17:51 18:50 19:09 WBC RBC Hgb Hct MCV MCH MCHC RDW Plt Count MPV Neut % (Auto) Lymph % (Auto) [place] % (Auto) Eos % (Auto) Baso % (Auto) Neut # (Auto) Lymph # (Auto) [place] # (Auto) Eos # (Auto) Baso # (Auto) Neutrophils % (Manual) Band Neutrophils % Lymphocytes % (Manual) Monocytes % (Manual) Nucleated RBC % Platelet Estimate Giant Platelets Polychromasia Hypochromasia (manual) Poikilocytosis (manual Anisocytosis (manual) Microcytosis (manual) Macrocytosis (manual) Spherocytes Tear Drop Cells Ovalocytes Mekhi Cells Acanthocytes (Spur) Schistocytes PT INR APTT Fibrinogen Puncture Site Lfa pCO2 13 L* pO2 122 H HCO3 17.1 L ABG pH 7.49 H ABG Total CO2 10.3 L ABG O2 Saturation 96.3 ABG Base Excess -10.1 L ABG Hemoglobin ABG Carboxyhemoglobin POC ABG HHb (Measured) ABG Methemoglobin Jann Test Pos ABG Potassium 4.7 A-a O2 Difference 575.0 Respiratory Index 4.7 Hgb O2 Saturation Sodium 143.0 146 Chloride 116.0 H 114 H Glucose 68 Lactate 2.3 H Liter Flow 15.0 Vent Mode Mechanical Rate FiO2 100.0 Tidal Volume PEEP Crit Value Called To Helen Crit Value Called By Marek ozuna Crit Value Read Back Y Blood Gas Notified Time 1855 Potassium 5.4 H Carbon Dioxide 8 L* Anion Gap 29 H BUN 136 H* Creatinine 8.1 H* Est GFR ( Amer) 6 Est GFR (Non-Af Amer) 5 POC Glucose (mg/dL) Random Glucose 64 L Uric Acid 13.3 H Calcium 6.3 L Phosphorus Magnesium Iron TIBC % Saturation Ferritin Total Bilirubin 0.7 AST 244 H ALT 120 H Alkaline Phosphatase 297 H D Lactate Dehydrogenase 2023 H Total Creatine Kinase 6254 H Total Protein 4.4 L Albumin 1.9 L Globulin 2.5 Albumin/Globulin Ratio 0.7 L 25-OH Vitamin D Total Arterial Blood Potassium 4.7 Urine Color Urine Clarity Urine pH Ur Specific [place] Urine Protein Urine Glucose (UA) Urine Ketones Urine Blood Urine Nitrate Urine Bilirubin Urine Urobilinogen Ur Leukocyte Esterase Urine WBC (Auto) Urine RBC (Auto) Ur Squamous Epith Cells Urine Bacteria Ur Random Creatinine U Random Total Protein Ur Random Sodium Urine Opiates Screen Urine Methadone Screen Ur Barbiturates Screen Ur Phencyclidine Scrn Ur Amphetamines Screen U Benzodiazepines Scrn U Oth Cocaine Metabols U Cannabinoids Screen Hep Bs Antigen Negative Hep Bs Antibody Hep B Core IgM Ab Blood Type O POSITIVE Antibody Screen Negative 04/01/18 04/01/18 04/01/18 19:09 19:09 19:09 WBC RBC Hgb Hct MCV MCH MCHC RDW Plt Count MPV Neut % (Auto) Lymph % (Auto) [place] % (Auto) Eos % (Auto) Baso % (Auto) Neut # (Auto) Lymph # (Auto) [place] # (Auto) Eos # (Auto) Baso # (Auto) Neutrophils % (Manual) Band Neutrophils % Lymphocytes % (Manual) Monocytes % (Manual) Nucleated RBC % Platelet Estimate Giant Platelets Polychromasia Hypochromasia (manual) Poikilocytosis (manual Anisocytosis (manual) Microcytosis (manual) Macrocytosis (manual) Spherocytes Tear Drop Cells Ovalocytes [place] Cells Acanthocytes (Spur) Schistocytes PT INR APTT Fibrinogen Puncture Site pCO2 pO2 HCO3 ABG pH ABG Total CO2 ABG O2 Saturation ABG Base Excess ABG Hemoglobin ABG Carboxyhemoglobin POC ABG HHb (Measured) ABG Methemoglobin Jann Test ABG Potassium A-a O2 Difference Respiratory Index Hgb O2 Saturation Sodium Chloride Glucose Lactate Liter Flow Vent Mode Mechanical Rate FiO2 Tidal Volume PEEP Crit Value Called To Crit Value Called By Crit Value Read Back Blood Gas Notified Time Potassium Carbon Dioxide Anion Gap BUN Creatinine Est GFR ( Amer) Est GFR (Non-Af Amer) POC Glucose (mg/dL) Random Glucose Uric Acid Calcium Phosphorus Magnesium Iron TIBC % Saturation Ferritin Total Bilirubin AST ALT Alkaline Phosphatase Lactate Dehydrogenase Total Creatine Kinase Total Protein Albumin Globulin Albumin/Globulin Ratio 25-OH Vitamin D Total Arterial Blood Potassium Urine Color Yellow Urine Clarity Hazy Urine pH 6.0 Ur Specific [place] 1.012 Urine Protein 2+ H Urine Glucose (UA) 1+ Urine Ketones Trace Urine Blood 3+ H Urine Nitrate Negative Urine Bilirubin Negative Urine Urobilinogen Normal Ur Leukocyte Esterase 2+ H Urine WBC (Auto) 33 H Urine RBC (Auto) 37 H Ur Squamous Epith Cells 4 Urine Bacteria Occ H Ur Random Creatinine 36.9 U Random Total Protein Ur Random Sodium Urine Opiates Screen Negative Urine Methadone Screen Negative Ur Barbiturates Screen Negative Ur Phencyclidine Scrn Negative Ur Amphetamines Screen Negative U Benzodiazepines Scrn Negative U Oth Cocaine Metabols Negative U Cannabinoids Screen Negative Hep Bs Antigen Hep Bs Antibody Hep B Core IgM Ab Negative Blood Type Antibody Screen 04/01/18 04/01/18 04/01/18 19:09 20:10 21:45 WBC 64.5 H* RBC 3.16 L Hgb 7.5 L Hct 22.5 L MCV 71.2 L MCH 23.8 L MCHC 33.4 RDW 32.0 H Plt Count 534 H MPV 8.3 Neut % (Auto) 96.2 H Lymph % (Auto) 2.3 L [place] % (Auto) 0.9 Eos % (Auto) 0.4 Baso % (Auto) 0.2 Neut # (Auto) 62.1 H Lymph # (Auto) 1.5 [place] # (Auto) 0.6 Eos # (Auto) 0.3 Baso # (Auto) 0.1 Neutrophils % (Manual) 88 H Band Neutrophils % 8 H Lymphocytes % (Manual) 3 L Monocytes % (Manual) 1 Nucleated RBC % 2 H Platelet Estimate Increased H Giant Platelets Present Polychromasia Hypochromasia (manual) Slight Poikilocytosis (manual Moderate Anisocytosis (manual) Microcytosis (manual) Macrocytosis (manual) Spherocytes Tear Drop Cells Ovalocytes [place] Cells Acanthocytes (Spur) Slight Schistocytes Slight PT 15.5 H INR 1.4 APTT 32 Fibrinogen Puncture Site pCO2 pO2 HCO3 ABG pH ABG Total CO2 ABG O2 Saturation ABG Base Excess ABG Hemoglobin ABG Carboxyhemoglobin POC ABG HHb (Measured) ABG Methemoglobin Jann Test ABG Potassium A-a O2 Difference Respiratory Index Hgb O2 Saturation Sodium Chloride Glucose Lactate Liter Flow Vent Mode Mechanical Rate FiO2 Tidal Volume PEEP Crit Value Called To Crit Value Called By Crit Value Read Back Blood Gas Notified Time Potassium Carbon Dioxide Anion Gap BUN Creatinine Est GFR ( Amer) Est GFR (Non-Af Amer) POC Glucose (mg/dL) Random Glucose Uric Acid Calcium Phosphorus Magnesium Iron TIBC % Saturation Ferritin Total Bilirubin AST ALT Alkaline Phosphatase Lactate Dehydrogenase Total Creatine Kinase Total Protein Albumin Globulin Albumin/Globulin Ratio 25-OH Vitamin D Total Arterial Blood Potassium Urine Color Urine Clarity Urine pH Ur Specific [place] Urine Protein Urine Glucose (UA) Urine Ketones Urine Blood Urine Nitrate Urine Bilirubin Urine Urobilinogen Ur Leukocyte Esterase Urine WBC (Auto) Urine RBC (Auto) Ur Squamous Epith Cells Urine Bacteria Ur Random Creatinine U Random Total Protein Ur Random Sodium Urine Opiates Screen Urine Methadone Screen Ur Barbiturates Screen Ur Phencyclidine Scrn Ur Amphetamines Screen U Benzodiazepines Scrn U Oth Cocaine Metabols U Cannabinoids Screen Hep Bs Antigen Hep Bs Antibody Negative Hep B Core IgM Ab Blood Type Antibody Screen 04/01/18 04/01/18 04/01/18 21:45 21:45 23:51 WBC 57.2 H* RBC 3.01 L Hgb 7.0 L Hct 21.7 L MCV 72.1 L MCH 23.4 L MCHC 32.4 L RDW 30.6 H Plt Count 485 H MPV 7.2 Neut % (Auto) 95.6 H Lymph % (Auto) 2.2 L [place] % (Auto) 1.5 Eos % (Auto) 0.5 Baso % (Auto) 0.2 Neut # (Auto) 54.7 H Lymph # (Auto) 1.2 [place] # (Auto) 0.9 H Eos # (Auto) 0.3 Baso # (Auto) 0.1 Neutrophils % (Manual) Band Neutrophils % Lymphocytes % (Manual) Monocytes % (Manual) Nucleated RBC % Platelet Estimate Giant Platelets Polychromasia Hypochromasia (manual) Poikilocytosis (manual Anisocytosis (manual) Microcytosis (manual) Macrocytosis (manual) Spherocytes Tear Drop Cells Ovalocytes [place]hi Cells Acanthocytes (Spur) Schistocytes PT INR APTT Fibrinogen Puncture Site R rad pCO2 15 L* pO2 263 H HCO3 18.8 L ABG pH 7.51 H ABG Total CO2 12.5 L ABG O2 Saturation 98.0 ABG Base Excess -7.9 L ABG Hemoglobin ABG Carboxyhemoglobin POC ABG HHb (Measured) ABG Methemoglobin Jann Test Pos ABG Potassium 4.4 A-a O2 Difference 75.0 Respiratory Index 0.3 Hgb O2 Saturation Sodium 142 138.0 Chloride 109 H 108.0 H Glucose 77 Lactate 2.3 H Liter Flow Vent Mode Prvc Mechanical Rate 16 FiO2 50.0 Tidal Volume 450 PEEP 5 Crit Value Called To Dr hodge Crit Value Called By Carmenza doss rt Crit Value Read Back Y Blood Gas Notified Time 33 Potassium 4.3 Carbon Dioxide 12 L Anion Gap 26 H BUN 87 H Creatinine 5.5 H Est GFR ( Amer) 10 Est GFR (Non-Af Amer) 8 POC Glucose (mg/dL) Random Glucose 43 L Uric Acid Calcium 6.7 L Phosphorus 6.9 H Magnesium 1.6 Iron TIBC % Saturation Ferritin Total Bilirubin 0.8 AST 239 H ALT 122 H Alkaline Phosphatase 247 H Lactate Dehydrogenase Total Creatine Kinase Total Protein 4.6 L Albumin 2.0 L Globulin 2.6 Albumin/Globulin Ratio 0.8 L 25-OH Vitamin D Total Arterial Blood Potassium 4.4 Urine Color Urine Clarity Urine pH Ur Specific [place] Urine Protein Urine Glucose (UA) Urine Ketones Urine Blood Urine Nitrate Urine Bilirubin Urine Urobilinogen Ur Leukocyte Esterase Urine WBC (Auto) Urine RBC (Auto) Ur Squamous Epith Cells Urine Bacteria Ur Random Creatinine U Random Total Protein Ur Random Sodium Urine Opiates Screen Urine Methadone Screen Ur Barbiturates Screen Ur Phencyclidine Scrn Ur Amphetamines Screen U Benzodiazepines Scrn U Oth Cocaine Metabols U Cannabinoids Screen Hep Bs Antigen Hep Bs Antibody Hep B Core IgM Ab Blood Type Antibody Screen 05/13/18 05/13/18 05/13/18 01:30 05:34 06:34 WBC RBC Hgb Hct MCV MCH MCHC RDW Plt Count MPV Neut % (Auto) Lymph % (Auto) [place] % (Auto) Eos % (Auto) Baso % (Auto) Neut # (Auto) Lymph # (Auto) [place] # (Auto) Eos # (Auto) Baso # (Auto) Neutrophils % (Manual) Band Neutrophils % Lymphocytes % (Manual) Monocytes % (Manual) Nucleated RBC % Platelet Estimate Giant Platelets Polychromasia Hypochromasia (manual) Poikilocytosis (manual Anisocytosis (manual) Microcytosis (manual) Macrocytosis (manual) Spherocytes Tear Drop Cells Ovalocytes Mekhi Cells Acanthocytes (Spur) Schistocytes PT INR APTT Fibrinogen 229 Puncture Site R rad pCO2 18 L* pO2 193 H HCO3 17.8 L ABG pH 7.47 H ABG Total CO2 13.7 L ABG O2 Saturation 98.2 H ABG Base Excess -9.2 L ABG Hemoglobin 8.1 L ABG Carboxyhemoglobin 0.6 POC ABG HHb (Measured) 1.8 ABG Methemoglobin 1.7 Jann Test Pos ABG Potassium A-a O2 Difference 70.0 Respiratory Index 0.4 Hgb O2 Saturation 95.9 Sodium Chloride Glucose Lactate Liter Flow Vent Mode Prvc Mechanical Rate 16 FiO2 40.0 Tidal Volume 450 PEEP 5 Crit Value Called To Dr hodge Crit Value Called By Carmenza doss rt Crit Value Read Back Y Blood Gas Notified Time 555 Potassium Carbon Dioxide Anion Gap BUN Creatinine Est GFR ( Amer) Est GFR (Non-Af Amer) POC Glucose (mg/dL) 70 Random Glucose Uric Acid Calcium Phosphorus Magnesium Iron TIBC % Saturation Ferritin Total Bilirubin AST ALT Alkaline Phosphatase Lactate Dehydrogenase Total Creatine Kinase Total Protein Albumin Globulin Albumin/Globulin Ratio 25-OH Vitamin D Total Arterial Blood Potassium Urine Color Urine Clarity Urine pH Ur Specific [place] Urine Protein Urine Glucose (UA) Urine Ketones Urine Blood Urine Nitrate Urine Bilirubin Urine Urobilinogen Ur Leukocyte Esterase Urine WBC (Auto) Urine RBC (Auto) Ur Squamous Epith Cells Urine Bacteria Ur Random Creatinine U Random Total Protein Ur Random Sodium Urine Opiates Screen Urine Methadone Screen Ur Barbiturates Screen Ur Phencyclidine Scrn Ur Amphetamines Screen U Benzodiazepines Scrn U Oth Cocaine Metabols U Cannabinoids Screen Hep Bs Antigen Hep Bs Antibody Hep B Core IgM Ab Blood Type Antibody Screen 04/02/18 04/02/18 04/02/18 06:34 06:35 06:37 WBC 44.6 H* RBC 3.08 L Hgb 7.7 L Hct 23.2 L MCV 75.4 L D MCH 24.9 L MCHC 33.1 RDW 28.6 H Plt Count 333 D MPV 7.5 Neut % (Auto) 96.1 H Lymph % (Auto) 2.0 L [place] % (Auto) 1.5 Eos % (Auto) 0.3 Baso % (Auto) 0.1 Neut # (Auto) 42.8 H Lymph # (Auto) 0.9 L [place] # (Auto) 0.7 Eos # (Auto) 0.1 Baso # (Auto) 0.1 Neutrophils % (Manual) 93 H Band Neutrophils % 5 H Lymphocytes % (Manual) 1 L Monocytes % (Manual) 1 Nucleated RBC % Platelet Estimate Normal Giant Platelets Polychromasia Slight Hypochromasia (manual) Slight Poikilocytosis (manual Slight Anisocytosis (manual) Moderate Microcytosis (manual) Slight Macrocytosis (manual) Slight Spherocytes Slight Tear Drop Cells Slight Ovalocytes Slight [place] Cells Slight Acanthocytes (Spur) Schistocytes Slight PT INR APTT Fibrinogen Puncture Site pCO2 pO2 HCO3 ABG pH ABG Total CO2 ABG O2 Saturation ABG Base Excess ABG Hemoglobin ABG Carboxyhemoglobin POC ABG HHb (Measured) ABG Methemoglobin Jann Test ABG Potassium A-a O2 Difference Respiratory Index Hgb O2 Saturation Sodium 143 Chloride 109 H Glucose Lactate Liter Flow Vent Mode Mechanical Rate FiO2 Tidal Volume PEEP Crit Value Called To Crit Value Called By Crit Value Read Back Blood Gas Notified Time Potassium 4.9 Carbon Dioxide 13 L Anion Gap 26 H BUN 89 H Creatinine 5.7 H Est GFR ( Amer) 9 Est GFR (Non-Af Amer) 8 POC Glucose (mg/dL) 64 L Random Glucose 63 L Uric Acid Calcium 5.9 L* Phosphorus 7.9 H Magnesium 1.5 L Iron TIBC % Saturation Ferritin 107.0 Total Bilirubin 0.4 AST 151 H D ALT 93 H D Alkaline Phosphatase 181 H D Lactate Dehydrogenase Total Creatine Kinase 1508 H Total Protein 4.3 L Albumin 1.9 L Globulin 2.3 Albumin/Globulin Ratio 0.8 L 25-OH Vitamin D Total Arterial Blood Potassium Urine Color Urine Clarity Urine pH Ur Specific [place] Urine Protein Urine Glucose (UA) Urine Ketones Urine Blood Urine Nitrate Urine Bilirubin Urine Urobilinogen Ur Leukocyte Esterase Urine WBC (Auto) Urine RBC (Auto) Ur Squamous Epith Cells Urine Bacteria Ur Random Creatinine U Random Total Protein Ur Random Sodium Urine Opiates Screen Urine Methadone Screen Ur Barbiturates Screen Ur Phencyclidine Scrn Ur Amphetamines Screen U Benzodiazepines Scrn U Oth Cocaine Metabols U Cannabinoids Screen Hep Bs Antigen Hep Bs Antibody Hep B Core IgM Ab Blood Type Antibody Screen 04/02/18 04/02/18 04/02/18 06:37 06:37 06:37 WBC RBC Hgb Hct MCV MCH MCHC RDW Plt Count MPV Neut % (Auto) Lymph % (Auto) [place] % (Auto) Eos % (Auto) Baso % (Auto) Neut # (Auto) Lymph # (Auto) [place] # (Auto) Eos # (Auto) Baso # (Auto) Neutrophils % (Manual) Band Neutrophils % Lymphocytes % (Manual) Monocytes % (Manual) Nucleated RBC % Platelet Estimate Giant Platelets Polychromasia Hypochromasia (manual) Poikilocytosis (manual Anisocytosis (manual) Microcytosis (manual) Macrocytosis (manual) Spherocytes Tear Drop Cells Ovalocytes [place] Cells Acanthocytes (Spur) Schistocytes PT INR APTT Fibrinogen Puncture Site pCO2 pO2 HCO3 ABG pH ABG Total CO2 ABG O2 Saturation ABG Base Excess ABG Hemoglobin ABG Carboxyhemoglobin POC ABG HHb (Measured) ABG Methemoglobin Jann Test ABG Potassium A-a O2 Difference Respiratory Index Hgb O2 Saturation Sodium Chloride Glucose Lactate Liter Flow Vent Mode Mechanical Rate FiO2 Tidal Volume PEEP Crit Value Called To Crit Value Called By Crit Value Read Back Blood Gas Notified Time Potassium Carbon Dioxide Anion Gap BUN Creatinine Est GFR ( Amer) Est GFR (Non-Af Amer) POC Glucose (mg/dL) 63 L Random Glucose Uric Acid Calcium Phosphorus Magnesium Iron 11 L TIBC 144 L % Saturation 7 L Ferritin Total Bilirubin AST ALT Alkaline Phosphatase Lactate Dehydrogenase Total Creatine Kinase Total Protein Albumin Globulin Albumin/Globulin Ratio 25-OH Vitamin D Total < 12.8 L Arterial Blood Potassium Urine Color Urine Clarity Urine pH Ur Specific [place] Urine Protein Urine Glucose (UA) Urine Ketones Urine Blood Urine Nitrate Urine Bilirubin Urine Urobilinogen Ur Leukocyte Esterase Urine WBC (Auto) Urine RBC (Auto) Ur Squamous Epith Cells Urine Bacteria Ur Random Creatinine U Random Total Protein Ur Random Sodium Urine Opiates Screen Urine Methadone Screen Ur Barbiturates Screen Ur Phencyclidine Scrn Ur Amphetamines Screen U Benzodiazepines Scrn U Oth Cocaine Metabols U Cannabinoids Screen Hep Bs Antigen Hep Bs Antibody Hep B Core IgM Ab Blood Type Antibody Screen 04/02/18 04/02/18 07:10 09:24 WBC RBC Hgb Hct MCV MCH MCHC RDW Plt Count MPV Neut % (Auto) Lymph % (Auto) [place] % (Auto) Eos % (Auto) Baso % (Auto) Neut # (Auto) Lymph # (Auto) [place] # (Auto) Eos # (Auto) Baso # (Auto) Neutrophils % (Manual) Band Neutrophils % Lymphocytes % (Manual) Monocytes % (Manual) Nucleated RBC % Platelet Estimate Giant Platelets Polychromasia Hypochromasia (manual) Poikilocytosis (manual Anisocytosis (manual) Microcytosis (manual) Macrocytosis (manual) Spherocytes Tear Drop Cells Ovalocytes Mekhi Cells Acanthocytes (Spur) Schistocytes PT INR APTT Fibrinogen Puncture Site pCO2 pO2 HCO3 ABG pH ABG Total CO2 ABG O2 Saturation ABG Base Excess ABG Hemoglobin ABG Carboxyhemoglobin POC ABG HHb (Measured) ABG Methemoglobin Jann Test ABG Potassium A-a O2 Difference Respiratory Index Hgb O2 Saturation Sodium Chloride Glucose Lactate Liter Flow Vent Mode Mechanical Rate FiO2 Tidal Volume PEEP Crit Value Called To Crit Value Called By Crit Value Read Back Blood Gas Notified Time Potassium Carbon Dioxide Anion Gap BUN Creatinine Est GFR ( Amer) Est GFR (Non-Af Amer) POC Glucose (mg/dL) 159 H Random Glucose Uric Acid Calcium Phosphorus Magnesium Iron TIBC % Saturation Ferritin Total Bilirubin AST ALT Alkaline Phosphatase Lactate Dehydrogenase Total Creatine Kinase Total Protein Albumin Globulin Albumin/Globulin Ratio 25-OH Vitamin D Total Arterial Blood Potassium Urine Color Urine Clarity Urine pH Ur Specific [place] Urine Protein Urine Glucose (UA) Urine Ketones Urine Blood Urine Nitrate Urine Bilirubin Urine Urobilinogen Ur Leukocyte Esterase Urine WBC (Auto) Urine RBC (Auto) Ur Squamous Epith Cells Urine Bacteria Ur Random Creatinine 37.3 U Random Total Protein Cancelled Ur Random Sodium 86 Urine Opiates Screen Urine Methadone Screen Ur Barbiturates Screen Ur Phencyclidine Scrn Ur Amphetamines Screen U Benzodiazepines Scrn U Oth Cocaine Metabols U Cannabinoids Screen Hep Bs Antigen Hep Bs Antibody Hep B Core IgM Ab Blood Type Antibody Screen Fingerstick Blood Sugar Results: 63 Critical Care Progress Note - Ventilator Checklist Daily Sedation Vacation: Yes Daily Assessment of Readiness to Wean: Yes Daily Spontaneous Breathing Trial: Yes PUD Prophalyxis: Yes DVT Prophylaxis: Yes Oral Care with Chlorhexidine Gluconate {CHG}: Yes - Nutrition Nutrition: Nutrition Category Date Time Status NPO Diet [DIET] Diets 04/01/18 Breakfast Active Assessment/Plan - Assessment and Plan (Free Text) Plan: 52 year old female with unknown medical history sent from [place] with LULA, hyperuricemia, leukocytosis, anemia and thrombocytosis, with concern for tumor lysis and leukemia. 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 start doxycycline (hemorrhaic bullae with soft tissue infection), continue all other medications, check vanco level, continue serial lactic -LULA: suspect 2nd septic shock and possible rhabdo: continue HD as per renal, avoid nephrotoxic drugs -thrombocytosis: reactive 2nd Soft tissue infection, fibrinogen > 100 -Anemia:etiology unknown, s/p 3 units PRBC will tranfuse 1 unit today, check CT abd/pelvis r/o retroperitoneal bleeding -?hydronephrosis: no imaging from [place] available, obtain CT abd.pelvis -Anion gap metabolic acidosis: 2nd renal failure, cannot rule out other unknown substance ingestion, will continue IV bicarb ggt and oral bicarb to keep HCO3 > 18 -Surgery input regarding ?fascitis ?debridement -GI: will start tube feeds (if no surgery anticiapted) -DVT ppx: heparin SQ q12 -PUD ppx protonix Cc time spent 55 minutes Multiple diagnostic tests pending. - Date & Time Date: 04/02/18 Time: 11:13
[2018-04-02 11:10] LABS: HEPATITIS C ANTIBODY NEGATIVE (NEGATIVE)
[2018-04-02] MEDS: Sodium Bicarbonate 8.4% 150 MEQ in Dextrose 5% In Water 1,000 ML IV SCH (11:49)
--- NOTE | 2018-04-02 14:36 | CT ---
PROCEDURE: CT Abdomen and Pelvis without intravenous contrast HISTORY: r/o hydronephrosis COMPARISON: None. TECHNIQUE: Helical CT of the abdomen and pelvis was performed following oral contrast administration. Intravenous contrast was not administered as per referring physician request. Contrast dose: None Radiation dose: Total exam DLP = 932.59 mGy-cm. This CT exam was performed using one or more of the following dose reduction techniques: Automated exposure control, adjustment of the mA and/or kV according to patient size, and/or use of iterative reconstruction technique. FINDINGS: Evaluation the abdomen is compromised by a limited volume oral contrast administered the patient, lack of intravenous contrast administration, and injected fat indicate cachectic appearing patient) both intra abdominal and extra abdominal) indicating an anasarca type pattern. LOWER THORAX: Limited bibasilar dependent atelectasis noted. Nasogastric tube is identified placed terminating in the gastric viscus. LIVER: Hepatic attenuation appears homogeneous. Difficult to evaluate for potential intrahepatic biliary dilatation or focal lesions. GALLBLADDER AND BILE DUCTS: There is relatively prominent gallbladder distention with cholelithiasis at the dependent portion of the fundus and neck. No mural thickening or prominent pericholecystic fluid collection appreciable. PANCREAS: Pancreas is limited evaluation but appears grossly nonfocal as imaged. SPLEEN: Unremarkable. ADRENALS: Unremarkable. No mass. KIDNEYS AND URETERS: Bilateral hydroureteronephrosis is identified possibly on the basis of an enlarged myomatous uterus. No definite radiodense urolithiasis appreciated bladder is decompressed by [place] catheter. VASCULATURE: Right common femoral central venous line is placed terminating at the distal right delete external iliac vein. No aortic aneurysm. BOWEL: Moderate dilatation of small-bowel loops is appreciated a proximal to mid small bowel segments in the large-bowel is of limited caliber by with occasional segments mildly distended with gas. Oral contrast seen through the majority of the large bowel no on a limited volume given lack of adequate oral contrast intake. Consider possible ileus in development or early distal small bowel obstruction. Further, the majority colon is collapsed with limited oral contrast in the lumen. Segments of thickening are difficult to exclude involving the wall of the hepatic flexure and proximal transverse segment as well as the splenic flexure and segmental colitis is in question. APPENDIX: Not identified. PERITONEUM: Increase in density as is extra abdominal fat suggestive of anasarca. Trace ascites suggested. Parasagittal ventral abdominal hernia is appreciated at the right lower quadrant containing Mesentery and ascites. The neck measures 1.4 cm. LYMPH NODES: No gross lymphadenopathy appreciable. BLADDER: Decompressed by [place]. REPRODUCTIVE: Enlarged uterus identified likely on the basis of fibroid uterine disease. An irregular gas pattern is seen at the lower uterine segment/ endocervical canal which may indicate endometritis or neoplasm of the lower uterine segment. BONES: No acute fracture. OTHER FINDINGS: Faint hyperdensity is seen in the deep abdominal wall which is nonspecific and may reflect calcification from possible chronic inflammatory process/autoimmune dermal process. Focal limited hemorrhage is a differential diagnostic possibility though on likely given the broad distribution of this limited finding. IMPRESSION: 1. Prominent gallbladder distention with cholelithiasis. Clinically correlate for potential cholecystitis. 2. Possible ileus or early distal small bowel obstruction. 3. Potential segmental colitis in various large-bowel segments though this is limited in diagnostic power due to collapse of the majority of the large bowel. 4. Mild bilateral hydroureteronephrosis potentially on the basis of enlarged myomatous uterus. 5. Potential infectious or inflammatory process affecting the uterus. Myomatous uterine changes also noted. 6. Anasarca and trace ascites. 7. Other lesser findings as discussed above.
--- NOTE | 2018-04-02 15:06 | CP.PCM.PN ---
Subjective - Date & Time of Evaluation Date of Evaluation: 04/02/18 Time of Evaluation: 15:02 - Subjective Subjective: Nephrology Consultation Note: Assessment: critical Acute Kidney Injury (N17.9) possibly due to obstructive uropathy b/l hydroureteronephrosis Hyperkalemia, HAGMA, acute respi failure Fall with rhabdomyolysis, severe anemia with leukocytsosis ? Sepsis Hyperphosphatemia (E83.39), hypocalcemia, hyperuricemia leg wounds Plan Will plan for HD today as ordered 2nd session maintain hemodyanamics stable. Patient not on ACEI/ARB due to LULA Monitor Input/Output, daily weights and renal function with basic metabolic panel agree with bicarb drip as D5w with 150 meq bicarb pt planned for blood transfusion medical management of hyperkalemia as needed will start phos binders, nephrovite, vit D, iron once stable and on diet. urology consult for b/l hydro appreciated heme eval appreciated Dose meds/antibiotics for reduced GFR. Avoid fleets enema/magnesium based laxatives. Avoid nephrotoxins/NSAIDs Glycemic control Further work up/management as per primary team Thanks for allowing me to participate in care of your patient. Will follow patient with you. Please call if any Qs. d/w ICU team Dr Jose G Clancy Office: [phone] Chief Complaint; feel sick HPI: Pt is a 52 F without known medical hx, lives [place] as found to have unresponsiveness and here for further eval found to have severe renal failure, anemia and high WBC count renal consult for LULA eval Denies OTC/herbal meds or NSAIDs No recent iodinated contrast exposure. ROS: unable. intubated 04/01/18 Physical Examination: General Appearance: frail, chronically debilitated and ill appearing, cachexic Vitals reviewed and noted as below Head; Atraumatic, normocephalic ENT: orally intubated EYES: Pupils are equal, round and reactive to light accommodation. Eye muscles and extraocular movement intact. Sclera is anicteric. Neck; supple no lymphadenopathy, no thyromegaly or bruit Lungs: Increased respiratory rate/effort. Breath sounds bilateral equal and clear anteriorly Heart: Normal rate. s1s2 normal. No rub or gallop. Extremities: 1-2+ edema. No varicose veins. has wounds in lower extremities Neurological: Patient is sedated Skin: Warm and dry. Normal turgor. No rash. Palpitation: Normal elasticity for age. has echymoses over lower torso Abdomen: Abdomen is soft. Bowel sounds +. There is no abdominal tenderness, no guarding/rigidity no organomegaly. globular non reducible mass in lower abdomen noted Psych: unable MSK: no joint tenderness or swelling. Digits and nails normal, no deformity : kidney or bladder not palpable. has sawyer Labs/imaging reviewed. Past medical history, past surgical history, family history, social history, allergy reviewed and noted as below Family hx: no hx of CKD. Rest non-contributory Objective - Vital Signs/Intake and Output Vital Signs (last 24 hours): Temp Pulse Resp BP Pulse Ox 98.9 F 91 H 11 L 100/64 100 04/02/18 04:00 04/02/18 14:53 04/02/18 14:53 04/02/18 14:53 04/02/18 14:53 Intake and Output: 04/02/18 04/02/18 06:59 18:59 Intake Total 4065 Output Total 50 Balance 4015 - Medications Medications: Current Medications Albumin Human (Albumin Human 25% (12.5 Gm/50 Ml)) 12.5 gm IV Q12 [facility] Last Admin: 04/02/18 10:39 Dose: 12.5 gm Ascorbic Acid (Vitamin C 500 Mg Tab) 500 mg PO BID [facility] Last Admin: 04/02/18 10:38 Dose: 500 mg Heparin Sodium (Porcine) (Heparin) 5,000 units SC Q12 [facility] Meropenem 500 mg/ Sodium (Chloride) 100 mls @ 100 mls/hr IVPB Q8 NOLAN PRN Reason: Protocol Last Admin: 04/02/18 13:54 Dose: 100 mls/hr Vancomycin/Sodium Chloride (Vancomycin 1 Gm/Ns 200 Ml) 1 gm in 200 mls @ 166.7 mls/hr IVPB Q48H NOLAN PRN Reason: Protocol Stop: 04/06/18 18:01 Last Admin: 04/01/18 18:05 Dose: Not Given Clindamycin Phosphate 300 mg/ (Sodium Chloride) 52 mls @ 100 mls/hr IVPB Q6H ONLAN PRN Reason: Protocol Last Admin: 04/02/18 10:39 Dose: 100 mls/hr Linezolid (Zyvox 600mg/300ml D5w) 600 mg in 300 mls @ 200 mls/hr IVPB Q12 NOLAN PRN Reason: Protocol Last Admin: 04/02/18 10:40 Dose: 200 mls/hr Fentanyl Citrate 2,500 mcg/ (Sodium Chloride) 250 mls @ 10.94 mls/hr IV .[id number] PRN; 2 MCG/KG/HR PRN Reason: Protocol Last Titration: 04/02/18 01:47 Dose: 1 mcg/kg/hr, 5.5 mls/hr Dextrose (Dextrose 10% In Water) 500 mls @ 30 mls/hr IV .[id number] NOLAN Last Admin: 04/02/18 07:47 Dose: 30 mls/hr Doxycycline Hyclate 100 mg/ (Sodium Chloride) 100 mls @ 100 mls/hr IVPB Q12H NOLAN PRN Reason: Protocol Last Admin: 04/02/18 13:57 Dose: 100 mls/hr Sodium Bicarbonate 150 meq/ (Dextrose) 1,150 mls @ 75 mls/hr IV .[id number] NOLAN Last Admin: 04/02/18 11:49 Dose: 75 mls/hr Lorazepam (Ativan) 2 mg IVP Q6H PRN PRN Reason: Anxiety Last Admin: 04/01/18 22:46 Dose: 2 mg Methylprednisolone (Solu-Medrol) 40 mg IVP Q12H NOLAN Stop: 04/04/18 06:01 Last Admin: 04/02/18 05:11 Dose: 40 mg Multivitamins/Vitamin C (Multi-Delyn Liquid) 5 ml PO DAILY [facility]OLAN Last Admin: 04/02/18 10:52 Dose: 5 ml Pantoprazole Sodium (Protonix Inj) 40 mg IVP DAILY [facility] Last Admin: 04/02/18 10:38 Dose: 40 mg Sodium Bicarbonate (Sodium Bicarbonate Tab) 650 mg PO Q6 [facility]OLAN Last Admin: 04/02/18 11:49 Dose: 650 mg - Labs Labs: 04/02/18 06:34 04/02/18 06:37 PT 15.5 SECONDS (9.7-12.2) H 04/01/18 21:45 INR 1.4 04/01/18 21:45 APTT 32 SECONDS (21-34) 04/01/18 21:45
--- NOTE | 2018-04-02 15:14 | CT ---
PROCEDURE: BILATERAL LOWER EXTREMITY CT WITHOUT CONTRAST HISTORY: fasciitis? COMPARISON: None TECHNIQUE: Volumetric CT acquisition was performed throughout the bilateral lower extremities from the hips to the ankles without intravenous contrast. Reformatted datasets provided in sagittal axial and coronal planes. Contrast Dose: None Radiation dose:Total exam DLP = 855.64 mGy-cm. This CT exam was performed using one or more of the following dose reduction techniques: Automated exposure control, adjustment of the mA and/or kV according to patient size, and/or use of iterative reconstruction technique. FINDINGS: A variable pattern of superficial and deep subcutaneous fatty edema is appreciated with prominent dural thickening at the medial and dependent thigh skin soft tissues in particular especially surrounding the mid to inferior pelvis and also the abdominal wall. And preliminary abdomen pelvis CT also, there is an anasarca type pattern of the fat throughout the abdomen and pelvis. The lack images contrast limits evaluation of fasciitis in particular, with fasciitis is not excluded though not favored. This primarily because the distribution is diffuse rather than localized. No emphysematous changes are appreciated throughout the affected soft tissues and further clinical correlation is recommended. Is unclear whether all of the findings are function of anasarca or another process. Subtle hyperdensity at the abdominal wall in the CT of the abdomen pelvis of this is of uncertain origin. IMPRESSION: Anasarca type pattern is favored over fasciitis of the bilateral lower extremities diffusely and is favored over fasciitis the fasciitis is still not excluded, a CT diagnosis is difficult to make without intravenous contrast. Necrotizing fasciitis is not identified however. Further clinical correlation is recommended.
--- NOTE | 2018-04-02 19:15 | CP.PCM.CON ---
History of Present Illness - History of Present Illness History of Present Illness: dictated Past Patient History - Past Medical History & Family History Past Medical History?: Yes - Past Social History Smoking Status: Never Smoked - CARDIAC Hx Cardiac Disorders: (UNKNOWN) - PULMONARY Hx Respiratory Disorders: (UNKNOWN) - NEUROLOGICAL Hx Neurological Disorder: (UNKNOWN) - HEENT Hx HEENT Problems: (UNKNOWN) - RENAL Hx Chronic Kidney Disease: (UNKNOWN) - ENDOCRINE/METABOLIC Hx Endocrine Disorders: (UNKNOWN) - HEMATOLOGICAL/ONCOLOGICAL Hx Blood Disorders: (UNKNOWN) Hx Anemia: Yes (04-01-18) Other/Comment: SEPSIS 04-01-18 - INTEGUMENT[employer] Other/Comment: BLLE sores. Discoloration to Abd area. Umbilical hernia - MUSCULOSKELETAL/RHEUMATOLOGICAL Hx Musculoskeletal Disorders: (UNKNOWN) Hx Falls: Yes - GASTROINTESTINAL Hx Gastrointestinal Disorders: Yes (NON REDUCIBLE UMBILICAL HERNIA) - GENITOURINARY/GYNECOLOGICAL Hx Genitourinary Disorders: (UNKNOWN) - PSYCHIATRIC Hx Substance Use: No - SURGICAL HISTORY Hx Surgeries: No - ANESTHESIA Hx Anesthesia: No Hx Anesthesia Reactions: No Meds Allergies/Adverse Reactions: Allergies Allergy/AdvReac Type Severity Reaction Status Date / Time No Known Allergies Allergy Verified 04/01/18 17:21 - Medications Medications: Current Medications Albumin Human (Albumin Human 25% (12.5 Gm/50 Ml)) 12.5 gm IV Q12 [facility] Last Admin: 04/02/18 10:39 Dose: 12.5 gm Ascorbic Acid (Vitamin C 500 Mg Tab) 500 mg PO BID [facility] Last Admin: 04/02/18 18:31 Dose: 500 mg Heparin Sodium (Porcine) (Heparin) 5,000 units SC Q12 [facility] Meropenem 500 mg/ Sodium (Chloride) 100 mls @ 100 mls/hr IVPB Q8 [facility] PRN Reason: Protocol Last Admin: 04/02/18 13:54 Dose: 100 mls/hr Vancomycin/Sodium Chloride (Vancomycin 1 Gm/Ns 200 Ml) 1 gm in 200 mls @ 166.7 mls/hr IVPB Q48H [facility] PRN Reason: Protocol Stop: 04/06/18 18:01 Last Admin: 04/01/18 18:05 Dose: Not Given Clindamycin Phosphate 300 mg/ (Sodium Chloride) 52 mls @ 100 mls/hr IVPB Q6H [facility] PRN Reason: Protocol Last Admin: 05/13/18 18:32 Dose: 100 mls/hr Linezolid (Zyvox 600mg/300ml D5w) 600 mg in 300 mls @ 200 mls/hr IVPB Q12 [facility] PRN Reason: Protocol Last Admin: 04/02/18 10:40 Dose: 200 mls/hr Fentanyl Citrate 2,500 mcg/ (Sodium Chloride) 250 mls @ 10.94 mls/hr IV .[id number] PRN; 2 MCG/KG/HR PRN Reason: Protocol Last Titration: 04/02/18 01:47 Dose: 1 mcg/kg/hr, 5.5 mls/hr Dextrose (Dextrose 10% In Water) 500 mls @ 30 mls/hr IV .[id number] [facility] Last Admin: 04/02/18 07:47 Dose: 30 mls/hr Doxycycline Hyclate 100 mg/ (Sodium Chloride) 100 mls @ 100 mls/hr IVPB Q12H [facility] PRN Reason: Protocol Last Admin: 04/02/18 13:57 Dose: 100 mls/hr Sodium Bicarbonate 150 meq/ (Dextrose) 1,150 mls @ 75 mls/hr IV .[id number] [facility] Last Admin: 04/02/18 11:49 Dose: 75 mls/hr Lorazepam (Ativan) 2 mg IVP Q6H PRN PRN Reason: Anxiety Last Admin: 04/01/18 22:46 Dose: 2 mg Methylprednisolone (Solu-Medrol) 40 mg IVP Q12H [facility] Stop: 04/04/18 06:01 Last Admin: 04/02/18 18:31 Dose: 40 mg Multivitamins/Vitamin C (Multi-Delyn Liquid) 5 ml PO DAILY [facility] Last Admin: 04/02/18 10:52 Dose: 5 ml Pantoprazole Sodium (Protonix Inj) 40 mg IVP DAILY [facility] Last Admin: 04/02/18 10:38 Dose: 40 mg Sodium Bicarbonate (Sodium Bicarbonate Tab) 650 mg PO Q6 [facility] Last Admin: 04/02/18 18:31 Dose: 650 mg Results - Vital Signs Recent Vital Signs: Last Vital Signs Temp 97.6 F 04/02/18 16:40 Pulse 93 H 04/02/18 17:26 Resp 14 04/02/18 17:26 BP 86/58 L 04/02/18 17:26 Pulse Ox 99 04/02/18 17:18 - Labs Result Diagrams: 04/03/18 06:33 04/03/18 06:33 Labs: Laboratory Results - last 24 hr 04/01/18 04/01/18 04/01/18 17:51 19:09 19:09 WBC RBC Hgb Hct MCV MCH MCHC RDW Plt Count MPV Neut % (Auto) Lymph % (Auto) [place] % (Auto) Eos % (Auto) Baso % (Auto) Neut # (Auto) Lymph # (Auto) [place] # (Auto) Eos # (Auto) Baso # (Auto) Neutrophils % (Manual) Band Neutrophils % Lymphocytes % (Manual) Monocytes % (Manual) Nucleated RBC % Platelet Estimate Giant Platelets Polychromasia Hypochromasia (manual) Poikilocytosis (manual Anisocytosis (manual) Microcytosis (manual) Macrocytosis (manual) Spherocytes Tear Drop Cells Ovalocytes [place]hi Cells Acanthocytes (Spur) Schistocytes PT INR APTT Fibrinogen Puncture Site pCO2 pO2 HCO3 ABG pH ABG Total CO2 ABG O2 Saturation ABG Base Excess ABG Hemoglobin ABG Carboxyhemoglobin POC ABG HHb (Measured) ABG Methemoglobin Jann Test ABG Potassium A-a O2 Difference Respiratory Index Hgb O2 Saturation Glucose Lactate Vent Mode Mechanical Rate FiO2 Tidal Volume PEEP Crit Value Called To Crit Value Called By Crit Value Read Back Blood Gas Notified Time Sodium 146 Potassium 5.4 H Chloride 114 H Carbon Dioxide 8 L* Anion Gap 29 H BUN 136 H* Creatinine 8.1 H* Est GFR ( Amer) 6 Est GFR (Non-Af Amer) 5 POC Glucose (mg/dL) Random Glucose 64 L Lactic Acid Uric Acid 13.3 H Calcium 6.3 L Phosphorus Magnesium Iron TIBC % Saturation Ferritin Total Bilirubin 0.7 AST 244 H ALT 120 H Alkaline Phosphatase 297 H D Lactate Dehydrogenase 2023 H Total Creatine Kinase 6254 H Total Protein 4.4 L Albumin 1.9 L Globulin 2.5 Albumin/Globulin Ratio 0.7 L 25-OH Vitamin D Total Arterial Blood Potassium Urine Color Yellow Urine Clarity Hazy Urine pH 6.0 Ur Specific Cecil 1.012 Urine Protein 2+ H Urine Glucose (UA) 1+ Urine Ketones Trace Urine Blood 3+ H Urine Nitrate Negative Urine Bilirubin Negative Urine Urobilinogen Normal Ur Leukocyte Esterase 2+ H Urine WBC (Auto) 33 H Urine RBC (Auto) 37 H Ur Squamous Epith Cells 4 Urine Bacteria Occ H Ur Random Creatinine U Random Total Protein Ur Random Sodium Urine Microalbumin Random Vancomycin Urine Opiates Screen Urine Methadone Screen Ur Barbiturates Screen Ur Phencyclidine Scrn Ur Amphetamines Screen U Benzodiazepines Scrn U Oth Cocaine Metabols U Cannabinoids Screen Hep Bs Antigen Negative Hep Bs Antibody Hep B Core IgM Ab Hepatitis C Antibody Blood Type O POSITIVE Antibody Screen Negative 04/01/18 04/01/18 04/01/18 19:09 19:09 19:09 WBC RBC Hgb Hct MCV MCH MCHC RDW Plt Count MPV Neut % (Auto) Lymph % (Auto) [place] % (Auto) Eos % (Auto) Baso % (Auto) Neut # (Auto) Lymph # (Auto) [place] # (Auto) Eos # (Auto) Baso # (Auto) Neutrophils % (Manual) Band Neutrophils % Lymphocytes % (Manual) Monocytes % (Manual) Nucleated RBC % Platelet Estimate Giant Platelets Polychromasia Hypochromasia (manual) Poikilocytosis (manual Anisocytosis (manual) Microcytosis (manual) Macrocytosis (manual) Spherocytes Tear Drop Cells Ovalocytes [place] Cells Acanthocytes (Spur) Schistocytes PT INR APTT Fibrinogen Puncture Site pCO2 pO2 HCO3 ABG pH ABG Total CO2 ABG O2 Saturation ABG Base Excess ABG Hemoglobin ABG Carboxyhemoglobin POC ABG HHb (Measured) ABG Methemoglobin Jann Test ABG Potassium A-a O2 Difference Respiratory Index Hgb O2 Saturation Glucose Lactate Vent Mode Mechanical Rate FiO2 Tidal Volume PEEP Crit Value Called To Crit Value Called By Crit Value Read Back Blood Gas Notified Time Sodium Potassium Chloride Carbon Dioxide Anion Gap BUN Creatinine Est GFR ( Amer) Est GFR (Non-Af Amer) POC Glucose (mg/dL) Random Glucose Lactic Acid Uric Acid Calcium Phosphorus Magnesium Iron TIBC % Saturation Ferritin Total Bilirubin AST ALT Alkaline Phosphatase Lactate Dehydrogenase Total Creatine Kinase Total Protein Albumin Globulin Albumin/Globulin Ratio 25-OH Vitamin D Total Arterial Blood Potassium Urine Color Urine Clarity Urine pH Ur Specific [place] Urine Protein Urine Glucose (UA) Urine Ketones Urine Blood Urine Nitrate Urine Bilirubin Urine Urobilinogen Ur Leukocyte Esterase Urine WBC (Auto) Urine RBC (Auto) Ur Squamous Epith Cells Urine Bacteria Ur Random Creatinine 36.9 U Random Total Protein Ur Random Sodium Urine Microalbumin Random Vancomycin Urine Opiates Screen Negative Urine Methadone Screen Negative Ur Barbiturates Screen Negative Ur Phencyclidine Scrn Negative Ur Amphetamines Screen Negative U Benzodiazepines Scrn Negative U Oth Cocaine Metabols Negative U Cannabinoids Screen Negative Hep Bs Antigen Hep Bs Antibody Negative Hep B Core IgM Ab Negative Hepatitis C Antibody Negative Blood Type Antibody Screen 04/01/18 04/01/18 04/01/18 20:10 21:45 21:45 WBC 64.5 H* 57.2 H* RBC 3.16 L 3.01 L Hgb 7.5 L 7.0 L Hct 22.5 L 21.7 L MCV 71.2 L 72.1 L MCH 23.8 L 23.4 L MCHC 33.4 32.4 L RDW 32.0 H 30.6 H Plt Count 534 H 485 H MPV 8.3 7.2 Neut % (Auto) 96.2 H 95.6 H Lymph % (Auto) 2.3 L 2.2 L [place] % (Auto) 0.9 1.5 Eos % (Auto) 0.4 0.5 Baso % (Auto) 0.2 0.2 Neut # (Auto) 62.1 H 54.7 H Lymph # (Auto) 1.5 1.2 [place] # (Auto) 0.6 0.9 H Eos # (Auto) 0.3 0.3 Baso # (Auto) 0.1 0.1 Neutrophils % (Manual) 88 H Band Neutrophils % 8 H Lymphocytes % (Manual) 3 L Monocytes % (Manual) 1 Nucleated RBC % 2 H Platelet Estimate Increased H Giant Platelets Present Polychromasia Hypochromasia (manual) Slight Poikilocytosis (manual Moderate Anisocytosis (manual) Microcytosis (manual) Macrocytosis (manual) Spherocytes Tear Drop Cells Ovalocytes Mekhi Cells Acanthocytes (Spur) Slight Schistocytes Slight PT 15.5 H INR 1.4 APTT 32 Fibrinogen Puncture Site pCO2 pO2 HCO3 ABG pH ABG Total CO2 ABG O2 Saturation ABG Base Excess ABG Hemoglobin ABG Carboxyhemoglobin POC ABG HHb (Measured) ABG Methemoglobin Jann Test ABG Potassium A-a O2 Difference Respiratory Index Hgb O2 Saturation Glucose Lactate Vent Mode Mechanical Rate FiO2 Tidal Volume PEEP Crit Value Called To Crit Value Called By Crit Value Read Back Blood Gas Notified Time Sodium Potassium Chloride Carbon Dioxide Anion Gap BUN Creatinine Est GFR ( Amer) Est GFR (Non-Af Amer) POC Glucose (mg/dL) Random Glucose Lactic Acid Uric Acid Calcium Phosphorus Magnesium Iron TIBC % Saturation Ferritin Total Bilirubin AST ALT Alkaline Phosphatase Lactate Dehydrogenase Total Creatine Kinase Total Protein Albumin Globulin Albumin/Globulin Ratio 25-OH Vitamin D Total Arterial Blood Potassium Urine Color Urine Clarity Urine pH Ur Specific [place] Urine Protein Urine Glucose (UA) Urine Ketones Urine Blood Urine Nitrate Urine Bilirubin Urine Urobilinogen Ur Leukocyte Esterase Urine WBC (Auto) Urine RBC (Auto) Ur Squamous Epith Cells Urine Bacteria Ur Random Creatinine U Random Total Protein Ur Random Sodium Urine Microalbumin Random Vancomycin Urine Opiates Screen Urine Methadone Screen Ur Barbiturates Screen Ur Phencyclidine Scrn Ur Amphetamines Screen U Benzodiazepines Scrn U Oth Cocaine Metabols U Cannabinoids Screen Hep Bs Antigen Hep Bs Antibody Hep B Core IgM Ab Hepatitis C Antibody Blood Type Antibody Screen 04/01/18 04/01/18 04/02/18 21:45 23:51 01:30 WBC RBC Hgb Hct MCV MCH MCHC RDW Plt Count MPV Neut % (Auto) Lymph % (Auto) [place] % (Auto) Eos % (Auto) Baso % (Auto) Neut # (Auto) Lymph # (Auto) [place] # (Auto) Eos # (Auto) Baso # (Auto) Neutrophils % (Manual) Band Neutrophils % Lymphocytes % (Manual) Monocytes % (Manual) Nucleated RBC % Platelet Estimate Giant Platelets Polychromasia Hypochromasia (manual) Poikilocytosis (manual Anisocytosis (manual) Microcytosis (manual) Macrocytosis (manual) Spherocytes Tear Drop Cells Ovalocytes [place] Cells Acanthocytes (Spur) Schistocytes PT INR APTT Fibrinogen Puncture Site R rad pCO2 15 L* pO2 263 H HCO3 18.8 L ABG pH 7.51 H ABG Total CO2 12.5 L ABG O2 Saturation 98.0 ABG Base Excess -7.9 L ABG Hemoglobin ABG Carboxyhemoglobin POC ABG HHb (Measured) ABG Methemoglobin Jann Test Pos ABG Potassium 4.4 A-a O2 Difference 75.0 Respiratory Index 0.3 Hgb O2 Saturation Glucose 77 Lactate 2.3 H Vent Mode Prvc Mechanical Rate 16 FiO2 50.0 Tidal Volume 450 PEEP 5 Crit Value Called To Dr hodge Crit Value Called By Carmenza doss rt Crit Value Read Back Y Blood Gas Notified Time 33 Sodium 142 138.0 Potassium 4.3 Chloride 109 H 108.0 H Carbon Dioxide 12 L Anion Gap 26 H BUN 87 H Creatinine 5.5 H Est GFR ( Amer) 10 Est GFR (Non-Af Amer) 8 POC Glucose (mg/dL) 70 Random Glucose 43 L Lactic Acid Uric Acid Calcium 6.7 L Phosphorus 6.9 H Magnesium 1.6 Iron TIBC % Saturation Ferritin Total Bilirubin 0.8 AST 239 H ALT 122 H Alkaline Phosphatase 247 H Lactate Dehydrogenase Total Creatine Kinase Total Protein 4.6 L Albumin 2.0 L Globulin 2.6 Albumin/Globulin Ratio 0.8 L 25-OH Vitamin D Total Arterial Blood Potassium 4.4 Urine Color Urine Clarity Urine pH Ur Specific [place] Urine Protein Urine Glucose (UA) Urine Ketones Urine Blood Urine Nitrate Urine Bilirubin Urine Urobilinogen Ur Leukocyte Esterase Urine WBC (Auto) Urine RBC (Auto) Ur Squamous Epith Cells Urine Bacteria Ur Random Creatinine U Random Total Protein Ur Random Sodium Urine Microalbumin Random Vancomycin Urine Opiates Screen Urine Methadone Screen Ur Barbiturates Screen Ur Phencyclidine Scrn Ur Amphetamines Screen U Benzodiazepines Scrn U Oth Cocaine Metabols U Cannabinoids Screen Hep Bs Antigen Hep Bs Antibody Hep B Core IgM Ab Hepatitis C Antibody Blood Type Antibody Screen 04/02/18 04/02/18 04/02/18 05:34 06:34 06:34 WBC 44.6 H* RBC 3.08 L Hgb 7.7 L Hct 23.2 L MCV 75.4 L D MCH 24.9 L MCHC 33.1 RDW 28.6 H Plt Count 333 D MPV 7.5 Neut % (Auto) 96.1 H Lymph % (Auto) 2.0 L [place] % (Auto) 1.5 Eos % (Auto) 0.3 Baso % (Auto) 0.1 Neut # (Auto) 42.8 H Lymph # (Auto) 0.9 L [place] # (Auto) 0.7 Eos # (Auto) 0.1 Baso # (Auto) 0.1 Neutrophils % (Manual) 93 H Band Neutrophils % 5 H Lymphocytes % (Manual) 1 L Monocytes % (Manual) 1 Nucleated RBC % Platelet Estimate Normal Giant Platelets Polychromasia Slight Hypochromasia (manual) Slight Poikilocytosis (manual Slight Anisocytosis (manual) Moderate Microcytosis (manual) Slight Macrocytosis (manual) Slight Spherocytes Slight Tear Drop Cells Slight Ovalocytes Slight Mekhi Cells Slight Acanthocytes (Spur) Schistocytes Slight PT INR APTT Fibrinogen 229 Puncture Site R rad pCO2 18 L* pO2 193 H HCO3 17.8 L ABG pH 7.47 H ABG Total CO2 13.7 L ABG O2 Saturation 98.2 H ABG Base Excess -9.2 L ABG Hemoglobin 8.1 L ABG Carboxyhemoglobin 0.6 POC ABG HHb (Measured) 1.8 ABG Methemoglobin 1.7 Jann Test Pos ABG Potassium A-a O2 Difference 70.0 Respiratory Index 0.4 Hgb O2 Saturation 95.9 Glucose Lactate Vent Mode Prvc Mechanical Rate 16 FiO2 40.0 Tidal Volume 450 PEEP 5 Crit Value Called To Dr hodge Crit Value Called By Carmenza doss rt Crit Value Read Back Y Blood Gas Notified Time 555 Sodium Potassium Chloride Carbon Dioxide Anion Gap BUN Creatinine Est GFR ( Amer) Est GFR (Non-Af Amer) POC Glucose (mg/dL) Random Glucose Lactic Acid Uric Acid Calcium Phosphorus Magnesium Iron TIBC % Saturation Ferritin Total Bilirubin AST ALT Alkaline Phosphatase Lactate Dehydrogenase Total Creatine Kinase Total Protein Albumin Globulin Albumin/Globulin Ratio 25-OH Vitamin D Total Arterial Blood Potassium Urine Color Urine Clarity Urine pH Ur Specific [place] Urine Protein Urine Glucose (UA) Urine Ketones Urine Blood Urine Nitrate Urine Bilirubin Urine Urobilinogen Ur Leukocyte Esterase Urine WBC (Auto) Urine RBC (Auto) Ur Squamous Epith Cells Urine Bacteria Ur Random Creatinine U Random Total Protein Ur Random Sodium Urine Microalbumin Random Vancomycin Urine Opiates Screen Urine Methadone Screen Ur Barbiturates Screen Ur Phencyclidine Scrn Ur Amphetamines Screen U Benzodiazepines Scrn U Oth Cocaine Metabols U Cannabinoids Screen Hep Bs Antigen Hep Bs Antibody Hep B Core IgM Ab Hepatitis C Antibody Blood Type Antibody Screen 04/02/18 04/02/18 04/02/18 06:35 06:37 06:37 WBC RBC Hgb Hct MCV MCH MCHC RDW Plt Count MPV Neut % (Auto) Lymph % (Auto) [place] % (Auto) Eos % (Auto) Baso % (Auto) Neut # (Auto) Lymph # (Auto) [place] # (Auto) Eos # (Auto) Baso # (Auto) Neutrophils % (Manual) Band Neutrophils % Lymphocytes % (Manual) Monocytes % (Manual) Nucleated RBC % Platelet Estimate Giant Platelets Polychromasia Hypochromasia (manual) Poikilocytosis (manual Anisocytosis (manual) Microcytosis (manual) Macrocytosis (manual) Spherocytes Tear Drop Cells Ovalocytes M[place]hi Cells Acanthocytes (Spur) Schistocytes PT INR APTT Fibrinogen Puncture Site pCO2 pO2 HCO3 ABG pH ABG Total CO2 ABG O2 Saturation ABG Base Excess ABG Hemoglobin ABG Carboxyhemoglobin POC ABG HHb (Measured) ABG Methemoglobin Jann Test ABG Potassium A-a O2 Difference Respiratory Index Hgb O2 Saturation Glucose Lactate Vent Mode Mechanical Rate FiO2 Tidal Volume PEEP Crit Value Called To Crit Value Called By Crit Value Read Back Blood Gas Notified Time Sodium 143 Potassium 4.9 Chloride 109 H Carbon Dioxide 13 L Anion Gap 26 H BUN 89 H Creatinine 5.7 H Est GFR ( Amer) 9 Est GFR (Non-Af Amer) 8 POC Glucose (mg/dL) 64 L Random Glucose 63 L Lactic Acid Uric Acid Calcium 5.9 L* Phosphorus 7.9 H Magnesium 1.5 L Iron TIBC % Saturation Ferritin 107.0 Total Bilirubin 0.4 AST 151 H D ALT 93 H D Alkaline Phosphatase 181 H D Lactate Dehydrogenase Total Creatine Kinase 1508 H Total Protein 4.3 L Albumin 1.9 L Globulin 2.3 Albumin/Globulin Ratio 0.8 L 25-OH Vitamin D Total < 12.8 L Arterial Blood Potassium Urine Color Urine Clarity Urine pH Ur Specific [place] Urine Protein Urine Glucose (UA) Urine Ketones Urine Blood Urine Nitrate Urine Bilirubin Urine Urobilinogen Ur Leukocyte Esterase Urine WBC (Auto) Urine RBC (Auto) Ur Squamous Epith Cells Urine Bacteria Ur Random Creatinine U Random Total Protein Ur Random Sodium Urine Microalbumin Random Vancomycin Urine Opiates Screen Urine Methadone Screen Ur Barbiturates Screen Ur Phencyclidine Scrn Ur Amphetamines Screen U Benzodiazepines Scrn U Oth Cocaine Metabols U Cannabinoids Screen Hep Bs Antigen Hep Bs Antibody Hep B Core IgM Ab Hepatitis C Antibody Blood Type Antibody Screen 04/02/18 04/02/18 04/02/18 06:37 06:37 07:10 WBC RBC Hgb Hct MCV MCH MCHC RDW Plt Count MPV Neut % (Auto) Lymph % (Auto) [place] % (Auto) Eos % (Auto) Baso % (Auto) Neut # (Auto) Lymph # (Auto) [place] # (Auto) Eos # (Auto) Baso # (Auto) Neutrophils % (Manual) Band Neutrophils % Lymphocytes % (Manual) Monocytes % (Manual) Nucleated RBC % Platelet Estimate Giant Platelets Polychromasia Hypochromasia (manual) Poikilocytosis (manual Anisocytosis (manual) Microcytosis (manual) Macrocytosis (manual) Spherocytes Tear Drop Cells Ovalocytes [place]hi Cells Acanthocytes (Spur) Schistocytes PT INR APTT Fibrinogen Puncture Site pCO2 pO2 HCO3 ABG pH ABG Total CO2 ABG O2 Saturation ABG Base Excess ABG Hemoglobin ABG Carboxyhemoglobin POC ABG HHb (Measured) ABG Methemoglobin Jann Test ABG Potassium A-a O2 Difference Respiratory Index Hgb O2 Saturation Glucose Lactate Vent Mode Mechanical Rate FiO2 Tidal Volume PEEP Crit Value Called To Crit Value Called By Crit Value Read Back Blood Gas Notified Time Sodium Potassium Chloride Carbon Dioxide Anion Gap BUN Creatinine Est GFR ( Amer) Est GFR (Non-Af Amer) POC Glucose (mg/dL) 63 L 159 H Random Glucose Lactic Acid Uric Acid Calcium Phosphorus Magnesium Iron 11 L TIBC 144 L % Saturation 7 L Ferritin Total Bilirubin AST ALT Alkaline Phosphatase Lactate Dehydrogenase Total Creatine Kinase Total Protein Albumin Globulin Albumin/Globulin Ratio 25-OH Vitamin D Total Arterial Blood Potassium Urine Color Urine Clarity Urine pH Ur Specific [place] Urine Protein Urine Glucose (UA) Urine Ketones Urine Blood Urine Nitrate Urine Bilirubin Urine Urobilinogen Ur Leukocyte Esterase Urine WBC (Auto) Urine RBC (Auto) Ur Squamous Epith Cells Urine Bacteria Ur Random Creatinine U Random Total Protein Ur Random Sodium Urine Microalbumin Random Vancomycin Urine Opiates Screen Urine Methadone Screen Ur Barbiturates Screen Ur Phencyclidine Scrn Ur Amphetamines Screen U Benzodiazepines Scrn U Oth Cocaine Metabols U Cannabinoids Screen Hep Bs Antigen Hep Bs Antibody Hep B Core IgM Ab Hepatitis C Antibody Blood Type Antibody Screen 04/02/18 04/02/18 04/02/18 09:24 09:24 09:24 WBC RBC Hgb Hct MCV MCH MCHC RDW Plt Count MPV Neut % (Auto) Lymph % (Auto) [place] % (Auto) Eos % (Auto) Baso % (Auto) Neut # (Auto) Lymph # (Auto) [place] # (Auto) Eos # (Auto) Baso # (Auto) Neutrophils % (Manual) Band Neutrophils % Lymphocytes % (Manual) Monocytes % (Manual) Nucleated RBC % Platelet Estimate Giant Platelets Polychromasia Hypochromasia (manual) Poikilocytosis (manual Anisocytosis (manual) Microcytosis (manual) Macrocytosis (manual) Spherocytes Tear Drop Cells Ovalocytes M[place]hi Cells Acanthocytes (Spur) Schistocytes PT INR APTT Fibrinogen Puncture Site pCO2 pO2 HCO3 ABG pH ABG Total CO2 ABG O2 Saturation ABG Base Excess ABG Hemoglobin ABG Carboxyhemoglobin POC ABG HHb (Measured) ABG Methemoglobin Jann Test ABG Potassium A-a O2 Difference Respiratory Index Hgb O2 Saturation Glucose Lactate Vent Mode Mechanical Rate FiO2 Tidal Volume PEEP Crit Value Called To Crit Value Called By Crit Value Read Back Blood Gas Notified Time Sodium Potassium Chloride Carbon Dioxide Anion Gap BUN Creatinine Est GFR ( Amer) Est GFR (Non-Af Amer) POC Glucose (mg/dL) Random Glucose Lactic Acid Uric Acid Calcium Phosphorus Magnesium Iron TIBC % Saturation Ferritin Total Bilirubin AST ALT Alkaline Phosphatase Lactate Dehydrogenase Total Creatine Kinase Total Protein Albumin Globulin Albumin/Globulin Ratio 25-OH Vitamin D Total Arterial Blood Potassium Urine Color Urine Clarity Urine pH Ur Specific [place] Urine Protein Urine Glucose (UA) Urine Ketones Urine Blood Urine Nitrate Urine Bilirubin Urine Urobilinogen Ur Leukocyte Esterase Urine WBC (Auto) Urine RBC (Auto) Ur Squamous Epith Cells Urine Bacteria Ur Random Creatinine 37.3 U Random Total Protein Cancelled 200.0 H Ur Random Sodium 86 Urine Microalbumin 741.1 H Random Vancomycin Urine Opiates Screen Urine Methadone Screen Ur Barbiturates Screen Ur Phencyclidine Scrn Ur Amphetamines Screen U Benzodiazepines Scrn U Oth Cocaine Metabols U Cannabinoids Screen Hep Bs Antigen Hep Bs Antibody Hep B Core IgM Ab Hepatitis C Antibody Blood Type Antibody Screen 04/02/18 04/02/18 04/02/18 11:09 11:29 11:39 WBC RBC Hgb Hct MCV MCH MCHC RDW Plt Count MPV Neut % (Auto) Lymph % (Auto) [place] % (Auto) Eos % (Auto) Baso % (Auto) Neut # (Auto) Lymph # (Auto) [place] # (Auto) Eos # (Auto) Baso # (Auto) Neutrophils % (Manual) Band Neutrophils % Lymphocytes % (Manual) Monocytes % (Manual) Nucleated RBC % Platelet Estimate Giant Platelets Polychromasia Hypochromasia (manual) Poikilocytosis (manual Anisocytosis (manual) Microcytosis (manual) Macrocytosis (manual) Spherocytes Tear Drop Cells Ovalocytes M[place]hi Cells Acanthocytes (Spur) Schistocytes PT INR APTT Fibrinogen Puncture Site pCO2 pO2 HCO3 ABG pH ABG Total CO2 ABG O2 Saturation ABG Base Excess ABG Hemoglobin ABG Carboxyhemoglobin POC ABG HHb (Measured) ABG Methemoglobin Jann Test ABG Potassium A-a O2 Difference Respiratory Index Hgb O2 Saturation Glucose Lactate Vent Mode Mechanical Rate FiO2 Tidal Volume PEEP Crit Value Called To Crit Value Called By Crit Value Read Back Blood Gas Notified Time Sodium Potassium Chloride Carbon Dioxide Anion Gap BUN Creatinine Est GFR ( Amer) Est GFR (Non-Af Amer) POC Glucose (mg/dL) 119 H Random Glucose Lactic Acid 1.5 Uric Acid Calcium Phosphorus Magnesium Iron TIBC % Saturation Ferritin Total Bilirubin AST ALT Alkaline Phosphatase Lactate Dehydrogenase Total Creatine Kinase Total Protein Albumin Globulin Albumin/Globulin Ratio 25-OH Vitamin D Total Arterial Blood Potassium Urine Color Urine Clarity Urine pH Ur Specific [place] Urine Protein Urine Glucose (UA) Urine Ketones Urine Blood Urine Nitrate Urine Bilirubin Urine Urobilinogen Ur Leukocyte Esterase Urine WBC (Auto) Urine RBC (Auto) Ur Squamous Epith Cells Urine Bacteria Ur Random Creatinine U Random Total Protein Ur Random Sodium Urine Microalbumin Random Vancomycin 20.5 Urine Opiates Screen Urine Methadone Screen Ur Barbiturates Screen Ur Phencyclidine Scrn Ur Amphetamines Screen U Benzodiazepines Scrn U Oth Cocaine Metabols U Cannabinoids Screen Hep Bs Antigen Hep Bs Antibody Hep B Core IgM Ab Hepatitis C Antibody Blood Type Antibody Screen 04/02/18 04/02/18 15:21 17:52 WBC RBC Hgb Hct MCV MCH MCHC RDW Plt Count MPV Neut % (Auto) Lymph % (Auto) [place] % (Auto) Eos % (Auto) Baso % (Auto) Neut # (Auto) Lymph # (Auto) [place] # (Auto) Eos # (Auto) Baso # (Auto) Neutrophils % (Manual) Band Neutrophils % Lymphocytes % (Manual) Monocytes % (Manual) Nucleated RBC % Platelet Estimate Giant Platelets Polychromasia Hypochromasia (manual) Poikilocytosis (manual Anisocytosis (manual) Microcytosis (manual) Macrocytosis (manual) Spherocytes Tear Drop Cells Ovalocytes [place] Cells Acanthocytes (Spur) Schistocytes PT INR APTT Fibrinogen Puncture Site pCO2 pO2 HCO3 ABG pH ABG Total CO2 ABG O2 Saturation ABG Base Excess ABG Hemoglobin ABG Carboxyhemoglobin POC ABG HHb (Measured) ABG Methemoglobin Jann Test ABG Potassium A-a O2 Difference Respiratory Index Hgb O2 Saturation Glucose Lactate Vent Mode Mechanical Rate FiO2 Tidal Volume PEEP Crit Value Called To Crit Value Called By Crit Value Read Back Blood Gas Notified Time Sodium Potassium Chloride Carbon Dioxide Anion Gap BUN Creatinine Est GFR ( Amer) Est GFR (Non-Af Amer) POC Glucose (mg/dL) 134 H Random Glucose Lactic Acid 2.4 H Uric Acid Calcium Phosphorus Magnesium Iron TIBC % Saturation Ferritin Total Bilirubin AST ALT Alkaline Phosphatase Lactate Dehydrogenase Total Creatine Kinase Total Protein Albumin Globulin Albumin/Globulin Ratio 25-OH Vitamin D Total Arterial Blood Potassium Urine Color Urine Clarity Urine pH Ur Specific Cecil Urine Protein Urine Glucose (UA) Urine Ketones Urine Blood Urine Nitrate Urine Bilirubin Urine Urobilinogen Ur Leukocyte Esterase Urine WBC (Auto) Urine RBC (Auto) Ur Squamous Epith Cells Urine Bacteria Ur Random Creatinine U Random Total Protein Ur Random Sodium Urine Microalbumin Random Vancomycin Urine Opiates Screen Urine Methadone Screen Ur Barbiturates Screen Ur Phencyclidine Scrn Ur Amphetamines Screen U Benzodiazepines Scrn U Oth Cocaine Metabols U Cannabinoids Screen Hep Bs Antigen Hep Bs Antibody Hep B Core IgM Ab Hepatitis C Antibody Blood Type Antibody Screen
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
[2018-04-03] MEDS: Clindamycin 600mg/50ml NS 600 MG/50 ML BAG IVPB SCH ×3 (03:12→20:29)
[2018-04-03] MEDS: Sodium Bicarbonate 8.4% 150 MEQ in Dextrose 5% In Water 1,000 ML IV SCH (04:06)
[2018-04-03] MEDS: MethylPREDNISolone 40 mg Vial IVP SCH ×2 (05:37→17:15)
[2018-04-03 06:00] LABS: ARTERIAL BLOOD GAS HCO3 21.9 mmol/L (21-28); ARTERIAL BLOOD GAS HEMOGLOBIN 8.7 g/dL (11.7-17.4); ARTERIAL BLOOD GAS O2 SAT 98.8 % (95-98); ARTERIAL BLOOD GAS PCO2 27 mm/Hg (35-45); ARTERIAL BLOOD GAS PH 7.46 (7.35-7.45); ARTERIAL BLOOD GAS PO2 184 mm/Hg (80-100)
[2018-04-03 06:41] LABS: BASO % 0.1 % (0.0-2.0); EOS # 0.2 K/uL (0.0-0.7); EOS % 0.5 % (0.0-4.0); HEMOGLOBIN 8.5 g/dL (11.0-16.0); LYMPH # 1.3 K/uL (1.0-4.3); LYMPH % 2.6 % (20.0-40.0); MEAN CELL VOLUME 77.4 fL (81.0-99.0); MEAN CORPUSCULAR HEMOGLOBIN 25.6 pg (27.0-31.0); MEAN PLATELET VOLUME 8.4 fL (7.2-11.7); MONO % 1.9 % (0.0-10.0); NEUT # 47.5 K/uL (1.8-7.0); NEUT % 94.9 % (50.0-75.0); NRBC % 0.1 % (0.0-2.0); PLATELET COUNT 149 K/uL (130-400); RBC 3.31 Mil/uL (3.80-5.20); RED CELL DISTRIBUTION WIDTH 26.9 % (11.5-14.5)
[2018-04-03 07:05] LABS: CK-MB 22.2 ng/mL (0.0-3.38)
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
[2018-04-03 07:32] LABS: ALB/GLOB RATIO 0.8 (1.0-2.1); ALBUMIN 1.8 g/dL (3.5-5.0); CALCIUM 6.5 mg/dl (8.6-10.4)
[2018-04-03 08:24] LABS: ANISOCYTOSIS MODERATE; BANDS 8 % (0-2); LYMPHOCYTE 1 % (20-40); MONOCYTE 1 % (0-10); NEUTROPHIL 90 % (50-75); PLATELET ESTIMATE NORMAL (NORMAL); TOTAL CELLS COUNTED 100
[2018-04-03 08:25] LABS: BURR CELLS SLIGHT; HYPOCHROMIC SLIGHT; OVALOCYTES SLIGHT; TOXIC GRANULATION PRESENT
--- NOTE | 2018-04-03 08:26 | RAD ---
HISTORY: eval et tube COMPARISON: 04/02/2018 FINDINGS: LUNGS: No active pulmonary disease. PLEURA: No significant pleural effusion identified, no pneumothorax apparent. CARDIOVASCULAR: ET tube and NG tube unchanged. No congestive change. OSSEOUS STRUCTURES: No significant abnormalities. VISUALIZED UPPER ABDOMEN: Normal. OTHER FINDINGS: None. IMPRESSION: No active disease.
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
[2018-04-03] MEDS: Albumin Human 25% (12.5 gm/50 ml) IV SCH ×3 (09:14→21:19)
[2018-04-03] MEDS: Linezolid 600 mg in D5W 300 ml 600 MG/300 ML BAG IVPB SCH ×2 (09:16→21:17)
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
[2018-04-03] MEDS: Dexmedetomidine Hydrochloride 200 MCG in Sodium Chloride 0.9% 48 ML IV SCH (11:15)
--- NOTE | 2018-04-03 12:08 | VASCLAB ---
PROCEDURE: Lower Extremity Venous Duplex Exam. HISTORY: SOB PRIORS: None. TECHNIQUE: Bilateral common femoral, femoral, popliteal and posterior tibial, peroneal and great saphenous veins were evaluated. Flow was assessed with color Doppler, compressibility, assessment of phasic flow and augmentation response. Report prepared by TA Perez FINDINGS: RIGHT: 1. Common Femoral Vein: 1.1. Unable to examine/ lines in groin 2. Femoral Vein: (mid to distal views only) 2.1. Compressibility - Fully compressible: Thrombus - None : Flow - Phasic: Augmentation -Normal: Reflux - None. 3. Popliteal Vein: 3.1. Compressibility - Fully compressible: Thrombus - None : Flow - Phasic: Augmentation -Normal: Reflux - None. 4. Posterior Tibial Vein: 4.1. Compressibility - Fully compressible: Thrombus - None: Flow - Phasic: Augmentation -Normal: Reflux - None. 5. Peroneal Vein: 5.1. Not visualized due to swelling 6. Great Saphenous Vein: 6.1. Compressibility - Fully compressible: Thrombus - None: Flow - Phasic: Augmentation - Normal: Reflux - None. LEFT: 1. Common Femoral Vein: 1.1. Unable to examine/ lines in groin 2. Femoral Vein: 2.1. Compressibility - Fully compressible: Thrombus - None: Flow - Phasic: Augmentation -Normal: Reflux - None. 3. Popliteal Vein: 3.1. Compressibility - Fully compressible: Thrombus - None : Flow - Phasic: Augmentation -Normal: Reflux - None. 4. Posterior Tibial Vein: (distal view only) 4.1. Compressibility - Fully compressible: Thrombus - None: Flow - Phasic: Augmentation -Normal: Reflux - None. 5. Peroneal Vein: 5.1. Not visualized due to swelling 6. Great Saphenous Vein: 6.1. Compressibility - Fully compressible: Thrombus - None: Flow - Phasic: Augmentation - Normal: Reflux - None. OTHER FINDINGS: Right: None significant. Left: None significant. IMPRESSION: No evidence of deep or superficial venous thrombosis in bilateral lower extremities, for the examined veins.
--- NOTE | 2018-04-03 12:20 | CP.CCUPN ---
CCU Subjective - Physician Review Events Since Last Encounter (Free Text): 04/03/18 12:18 Patient received a blood transfusion, hemodialysis. Currently patient is on ventilator. Sedation was reduced, and the patient is awake and following simple commands. Patient has no pain. She was not able to tolerate oral feeding, but today resumed again. No BM. Patient has a significant generalized anasarca and edema from the fluid resuscitation Critical Care Time Spent (in minutes): 45 CCU Objective - Vital Signs / Intake & Output Vital Signs (Last 4 hours): Temp Pulse Resp BP Pulse Ox 97.4 F L 87 17 106/59 L 99 04/03/18 08:00 04/03/18 08:00 04/03/18 08:00 04/03/18 07:59 04/03/18 08:00 Intake and Output (Last 8hrs): Intake & Output 04/02/18 04/03/18 04/03/18 22:59 06:59 14:59 Intake Total 1659.0 1604.0 241.0 Output Total 250 100 0 Balance 1409.0 1504.0 241.0 Weight 119 lb 0.794 oz Intake: IV 130 Intake, IV Amount 1134.0 1334.0 221.0 Left Antecubital 44.0 44.0 11.0 Right Antecubital 600 600 150 Right Wrist 50 right fem 440 690 60 Oral 100 Tube Feeding 100 20 20 Blood Product 325 Red Blood Cells Cpd As1 325 Lr Unit [id number] Other 120 Output: Gastric Amount 250 100 Stomach 250 100 Urine 0 0 0 Urethral ([place]) 0 0 0 Other: # Voids Urethral ([place]) 0 # Bowel Movements 0 - Physical Exam Narrative Physical Exam (Free Text): 04/03/18 12:19 Patient is awake and responding. Chest minimal bilateral wheezing noted Secretions is minimal Generalized edema noted. Abdomen nontender. Patient has bilateral leg ecchymosis. Foul-smelling eschar noted over the medial aspect of the both lower extremities in the mid one third, and associated with the lymphangitic spread of infection noted. Patient has a bullous skin lesions, but the weeping edema noted Head: Positive for: Atraumatic Mouth: Positive for: Moist Mucous Membranes Respiratory/Chest: Positive for: Good Air Exchange. Negative for: Respiratory Distress, Accessory Muscle Use Abdomen: Positive for: Other (abdomen reveals a 5 cm circular bulb no Bowel sounds in bulb) Upper Extremity: Negative for: Cyanosis Lower Extremity: Positive for: Other (non-blanching ecchymotic lesions covering more than 25 percent of lower and abdomen) - Medications Active Medications: Active Medications Generic Name Dose Route Start Last Admin Trade Name Freq PRN Reason Stop Dose Admin Albumin Human 12.5 gm 04/01/18 22:30 04/03/18 09:14 Albumin Human 25% (12.5 Gm/50 Ml) IV 12.5 gm Q12 NOLAN Administration Albuterol/Ipratropium 3 ml 04/03/18 09:30 Duoneb 3 Mg/0.5 Mg (3 Ml) Ud INH RQ6 PRN Shortness of Breath Ascorbic Acid 500 mg 04/02/18 10:00 04/03/18 09:15 Vitamin C 500 Mg Tab PO 500 mg BID NOLAN Administration Heparin Sodium (Porcine) 5,000 units 04/02/18 22:00 04/03/18 09:15 Heparin SC 5,000 units Q12 NOLAN Administration Linezolid 600 mg in 300 mls @ 200 mls/hr 04/01/18 22:00 04/03/18 09:16 Zyvox 600mg/300ml D5w IVPB 200 mls/hr Q12 NOLAN Administration Protocol Dextrose 500 mls @ 30 mls/hr 04/02/18 07:00 04/03/18 01:41 Dextrose 10% In Water IV 30 mls/hr .[id number] NOLAN Administration Doxycycline Hyclate 100 mg/ 100 mls @ 100 mls/hr 04/02/18 13:00 04/03/18 12: 05 Sodium Chloride IVPB 100 mls/hr Q12H NOLAN Administration Protocol Clindamycin Phosphate 600 mg in 50 mls @ 100 mls/hr 04/03/18 04:00 04/03/18 11:23 Cleocin In Normal Saline IVPB 100 mls/hr Q8H NOLAN Administration Protocol Dexmedetomidine HCl 200 mcg/ 50 mls @ 2.7 mls/hr 04/03/18 09:45 04/03/18 11: 15 Sodium Chloride IV 0.2 mcg/kg/hr TITR NOLAN 2.7 mls/hr Protocol Administration 0.2 MCG/KG/HR Calcium Gluconate 2,000 mg/ 270 mls @ 135 mls/hr 04/03/18 10:24 04/03/18 11: 40 Sodium Chloride IVPB 04/03/18 12:23 135 mls/hr ONCE ONE Administration Magnesium Sulfate/Dextrose 1 gm in 100 mls @ 300 mls/hr 04/03/18 12:15 Magnesium Sulfate 1 Gm/100 Ml D5w IVPB 04/03/18 13:04 Q30M NOLAN Lorazepam 2 mg 04/01/18 22:32 04/01/18 22:46 Ativan IVP 2 mg Q6H PRN Administration Anxiety Methylprednisolone 40 mg 04/02/18 06:00 04/03/18 05:37 Solu-Medrol IVP 04/04/18 06:01 40 mg Q12H NOLAN Administration Multivitamins/Vitamin C 5 ml 04/03/18 10:15 Multi-Delyn Liquid PO DAILY NOLAN Pantoprazole Sodium 40 mg 04/02/18 10:00 04/03/18 09:15 Protonix Inj IVP 40 mg DAILY NOLAN Administration Sodium Bicarbonate 650 mg 04/02/18 12:00 04/03/18 11:41 Sodium Bicarbonate Tab PO 650 mg Q6 NOLAN Administration - Patient Studies Lab Studies: Microbiology Studies 04/02/18 08:53 Blood Culture - Preliminary Blood-Venous NO GROWTH AFTER 24 HOURS 04/02/18 08:53 Blood Culture - Preliminary Blood-Venous NO GROWTH AFTER 24 HOURS 04/01/18 19:14 MRSA Culture (Admit) - Final Nose MRSA NOT DETECTED Lab Studies 04/03/18 04/03/18 04/03/18 Range/Units 11:38 06:33 06:33 WBC (4.8-10.8) K/uL RBC (3.80-5.20) Mil/uL Hgb (11.0-16.0) g/dL Hct (34.0-47.0) % MCV (81.0-99.0) fL MCH (27.0-31.0) pg MCHC (33.0-37.0) g/dL RDW (11.5-14.5) % Plt Count (130-400) K/uL MPV (7.2-11.7) fL Neut % (Auto) (50.0-75.0) % Lymph % (Auto) (20.0-40.0) % [place] % (Auto) (0.0-10.0) % Eos % (Auto) (0.0-4.0) % Baso % (Auto) (0.0-2.0) % Neut # (Auto) (1.8-7.0) K/uL Lymph # (Auto) (1.0-4.3) K/uL [place] # (Auto) (0.0-0.8) K/uL Eos # (Auto) (0.0-0.7) K/uL Baso # (Auto) (0.0-0.2) K/uL Neutrophils % (Manual) (50-75) % Band Neutrophils % (0-2) % Lymphocytes % (Manual) (20-40) % Monocytes % (Manual) (0-10) % Toxic Granulation Platelet Estimate (NORMAL) Hypochromasia (manual) Anisocytosis (manual) Ovalocytes Datil Cells Smear Path Review ESR (0-20) mm/hr Fibrinogen 244 (200-400) mg/dL Puncture Site pCO2 (35-45) mm/Hg pO2 (80-100) mm/Hg HCO3 (21-28) mmol/L ABG pH (7.35-7.45) ABG Total CO2 (22-28) mmol/L ABG O2 Saturation (95-98) % ABG Base Excess (-2.0-3.0) mmol/L ABG Hemoglobin (11.7-17.4) g/dL ABG Carboxyhemoglobin (0.5-1.5) % POC ABG HHb (Measured) (0.0-5.0) % ABG Methemoglobin (0.0-3.0) % Jann Test A-a O2 Difference mm/Hg Respiratory Index Hgb O2 Saturation (95.0-98.0) % Vent Mode Mechanical Rate FiO2 % Tidal Volume PEEP Sodium 137 (132-148) mmol/L Potassium 4.6 (3.6-5.2) mmol/L Chloride 101 (98-107) mmol/L Carbon Dioxide 19 L (22-30) mmol/L Anion Gap 22 H (10-20) BUN 65 H (7-17) mg/dL Creatinine 3.8 H (0.7-1.2) mg/dL Est GFR ( Amer) 15 Est GFR (Non-Af Amer) 12 POC Glucose (mg/dL) 200 H (65-110) mg/dL Random Glucose 146 H (65-105) mg/dL Lactic Acid (0.7-2.1) mmol/L Calcium 6.5 L (8.6-10.4) mg/dl Phosphorus 7.5 H (2.5-4.5) mg/dL Magnesium 1.5 L (1.6-2.3) mg/dL Total Bilirubin 0.3 (0.2-1.3) mg/dL AST 91 H D (14-36) U/L ALT 79 H (9-52) U/L Alkaline Phosphatase 161 H (38-126) U/L Total Creatine Kinase 655 H (30-135) U/L CK-MB (Mass) 22.2 H (0.0-3.38) ng/mL Total Protein 3.9 L (6.3-8.3) g/dL Albumin 1.8 L (3.5-5.0) g/dL Globulin 2.2 (2.2-3.9) gm/dL Albumin/Globulin Ratio 0.8 L (1.0-2.1) Blood Type Antibody Screen 04/03/18 04/03/18 04/03/18 Range/Units 06:33 05:55 05:32 WBC 50.0 H* (4.8-10.8) K/uL RBC 3.31 L (3.80-5.20) Mil/uL Hgb 8.5 L (11.0-16.0) g/dL Hct 25.7 L (34.0-47.0) % MCV 77.4 L D (81.0-99.0) fL MCH 25.6 L (27.0-31.0) pg MCHC 33.0 (33.0-37.0) g/dL RDW 26.9 H (11.5-14.5) % Plt Count 149 D (130-400) K/uL MPV 8.4 (7.2-11.7) fL Neut % (Auto) 94.9 H (50.0-75.0) % Lymph % (Auto) 2.6 L (20.0-40.0) % [place] % (Auto) 1.9 (0.0-10.0) % Eos % (Auto) 0.5 (0.0-4.0) % Baso % (Auto) 0.1 (0.0-2.0) % Neut # (Auto) 47.5 H (1.8-7.0) K/uL Lymph # (Auto) 1.3 (1.0-4.3) K/uL [place] # (Auto) 1.0 H (0.0-0.8) K/uL Eos # (Auto) 0.2 (0.0-0.7) K/uL Baso # (Auto) 0.0 (0.0-0.2) K/uL Neutrophils % (Manual) 90 H (50-75) % Band Neutrophils % 8 H (0-2) % Lymphocytes % (Manual) 1 L (20-40) % Monocytes % (Manual) 1 (0-10) % Toxic Granulation Present Platelet Estimate Normal (NORMAL) Hypochromasia (manual) Slight Anisocytosis (manual) Moderate Ovalocytes Slight Datil Cells Slight Smear Path Review ESR 14 (0-20) mm/hr Fibrinogen (200-400) mg/dL Puncture Site Rb pCO2 27 L (35-45) mm/Hg pO2 184 H (80-100) mm/Hg HCO3 21.9 (21-28) mmol/L ABG pH 7.46 H (7.35-7.45) ABG Total CO2 20.0 L (22-28) mmol/L ABG O2 Saturation 98.8 H (95-98) % ABG Base Excess -3.9 L (-2.0-3.0) mmol/L ABG Hemoglobin 8.7 L (11.7-17.4) g/dL ABG Carboxyhemoglobin 1.1 (0.5-1.5) % POC ABG HHb (Measured) 1.2 (0.0-5.0) % ABG Methemoglobin 1.0 (0.0-3.0) % Jann Test Na A-a O2 Difference 67.0 mm/Hg Respiratory Index 0.4 Hgb O2 Saturation 96.6 (95.0-98.0) % Vent Mode Prvc Mechanical Rate 16 FiO2 40.0 % Tidal Volume 450 PEEP 5 Sodium (132-148) mmol/L Potassium (3.6-5.2) mmol/L Chloride (98-107) mmol/L Carbon Dioxide (22-30) mmol/L Anion Gap (10-20) BUN (7-17) mg/dL Creatinine (0.7-1.2) mg/dL Est GFR ( Amer) Est GFR (Non-Af Amer) POC Glucose (mg/dL) 176 H (65-110) mg/dL Random Glucose (65-105) mg/dL Lactic Acid (0.7-2.1) mmol/L Calcium (8.6-10.4) mg/dl Phosphorus (2.5-4.5) mg/dL Magnesium (1.6-2.3) mg/dL Total Bilirubin (0.2-1.3) mg/dL AST (14-36) U/L ALT (9-52) U/L Alkaline Phosphatase (38-126) U/L Total Creatine Kinase (30-135) U/L CK-MB (Mass) (0.0-3.38) ng/mL Total Protein (6.3-8.3) g/dL Albumin (3.5-5.0) g/dL Globulin (2.2-3.9) gm/dL Albumin/Globulin Ratio (1.0-2.1) Blood Type Antibody Screen 04/03/18 04/02/18 04/02/18 Range/Units 00:01 19:25 17:52 WBC (4.8-10.8) K/uL RBC (3.80-5.20) Mil/uL Hgb (11.0-16.0) g/dL Hct (34.0-47.0) % MCV (81.0-99.0) fL MCH (27.0-31.0) pg MCHC (33.0-37.0) g/dL RDW (11.5-14.5) % Plt Count (130-400) K/uL MPV (7.2-11.7) fL Neut % (Auto) (50.0-75.0) % Lymph % (Auto) (20.0-40.0) % [place] % (Auto) (0.0-10.0) % Eos % (Auto) (0.0-4.0) % Baso % (Auto) (0.0-2.0) % Neut # (Auto) (1.8-7.0) K/uL Lymph # (Auto) (1.0-4.3) K/uL [place] # (Auto) (0.0-0.8) K/uL Eos # (Auto) (0.0-0.7) K/uL Baso # (Auto) (0.0-0.2) K/uL Neutrophils % (Manual) (50-75) % Band Neutrophils % (0-2) % Lymphocytes % (Manual) (20-40) % Monocytes % (Manual) (0-10) % Toxic Granulation Platelet Estimate (NORMAL) Hypochromasia (manual) Anisocytosis (manual) Ovalocytes [place] Cells Smear Path Review ESR (0-20) mm/hr Fibrinogen (200-400) mg/dL Puncture Site pCO2 (35-45) mm/Hg pO2 (80-100) mm/Hg HCO3 (21-28) mmol/L ABG pH (7.35-7.45) ABG Total CO2 (22-28) mmol/L ABG O2 Saturation (95-98) % ABG Base Excess (-2.0-3.0) mmol/L ABG Hemoglobin (11.7-17.4) g/dL ABG Carboxyhemoglobin (0.5-1.5) % POC ABG HHb (Measured) (0.0-5.0) % ABG Methemoglobin (0.0-3.0) % Jann Test A-a O2 Difference mm/Hg Respiratory Index Hgb O2 Saturation (95.0-98.0) % Vent Mode Mechanical Rate FiO2 % Tidal Volume PEEP Sodium (132-148) mmol/L Potassium (3.6-5.2) mmol/L Chloride (98-107) mmol/L Carbon Dioxide (22-30) mmol/L Anion Gap (10-20) BUN (7-17) mg/dL Creatinine (0.7-1.2) mg/dL Est GFR ( Amer) Est GFR (Non-Af Amer) POC Glucose (mg/dL) 193 H 134 H (65-110) mg/dL Random Glucose (65-105) mg/dL Lactic Acid 2.1 (0.7-2.1) mmol/L Calcium (8.6-10.4) mg/dl Phosphorus (2.5-4.5) mg/dL Magnesium (1.6-2.3) mg/dL Total Bilirubin (0.2-1.3) mg/dL AST (14-36) U/L ALT (9-52) U/L Alkaline Phosphatase (38-126) U/L Total Creatine Kinase (30-135) U/L CK-MB (Mass) (0.0-3.38) ng/mL Total Protein (6.3-8.3) g/dL Albumin (3.5-5.0) g/dL Globulin (2.2-3.9) gm/dL Albumin/Globulin Ratio (1.0-2.1) Blood Type Antibody Screen 04/02/18 04/01/18 04/01/18 Range/Units 15:21 20:10 17:51 WBC (4.8-10.8) K/uL RBC (3.80-5.20) Mil/uL Hgb (11.0-16.0) g/dL Hct (34.0-47.0) % MCV (81.0-99.0) fL MCH (27.0-31.0) pg MCHC (33.0-37.0) g/dL RDW (11.5-14.5) % Plt Count (130-400) K/uL MPV (7.2-11.7) fL Neut % (Auto) (50.0-75.0) % Lymph % (Auto) (20.0-40.0) % [place] % (Auto) (0.0-10.0) % Eos % (Auto) (0.0-4.0) % Baso % (Auto) (0.0-2.0) % Neut # (Auto) (1.8-7.0) K/uL Lymph # (Auto) (1.0-4.3) K/uL [place] # (Auto) (0.0-0.8) K/uL Eos # (Auto) (0.0-0.7) K/uL Baso # (Auto) (0.0-0.2) K/uL Neutrophils % (Manual) (50-75) % Band Neutrophils % (0-2) % Lymphocytes % (Manual) (20-40) % Monocytes % (Manual) (0-10) % Toxic Granulation Platelet Estimate (NORMAL) Hypochromasia (manual) Anisocytosis (manual) Ovalocytes Datil Cells Smear Path Review ESR (0-20) mm/hr Fibrinogen (200-400) mg/dL Puncture Site pCO2 (35-45) mm/Hg pO2 (80-100) mm/Hg HCO3 (21-28) mmol/L ABG pH (7.35-7.45) ABG Total CO2 (22-28) mmol/L ABG O2 Saturation (95-98) % ABG Base Excess (-2.0-3.0) mmol/L ABG Hemoglobin (11.7-17.4) g/dL ABG Carboxyhemoglobin (0.5-1.5) % POC ABG HHb (Measured) (0.0-5.0) % ABG Methemoglobin (0.0-3.0) % Jann Test A-a O2 Difference mm/Hg Respiratory Index Hgb O2 Saturation (95.0-98.0) % Vent Mode Mechanical Rate FiO2 % Tidal Volume PEEP Sodium (132-148) mmol/L Potassium (3.6-5.2) mmol/L Chloride (98-107) mmol/L Carbon Dioxide (22-30) mmol/L Anion Gap (10-20) BUN (7-17) mg/dL Creatinine (0.7-1.2) mg/dL Est GFR ( Amer) Est GFR (Non-Af Amer) POC Glucose (mg/dL) (65-110) mg/dL Random Glucose (65-105) mg/dL Lactic Acid 2.4 H (0.7-2.1) mmol/L Calcium (8.6-10.4) mg/dl Phosphorus (2.5-4.5) mg/dL Magnesium (1.6-2.3) mg/dL Total Bilirubin (0.2-1.3) mg/dL AST (14-36) U/L ALT (9-52) U/L Alkaline Phosphatase (38-126) U/L Total Creatine Kinase (30-135) U/L CK-MB (Mass) (0.0-3.38) ng/mL Total Protein (6.3-8.3) g/dL Albumin (3.5-5.0) g/dL Globulin (2.2-3.9) gm/dL Albumin/Globulin Ratio (1.0-2.1) Blood Type O POSITIVE Antibody Screen Negative Laboratory Results - last 24 hr 04/01/18 04/01/18 04/02/18 17:51 20:10 15:21 WBC RBC Hgb Hct MCV MCH MCHC RDW Plt Count MPV Neut % (Auto) Lymph % (Auto) [place] % (Auto) Eos % (Auto) Baso % (Auto) Neut # (Auto) Lymph # (Auto) [place] # (Auto) Eos # (Auto) Baso # (Auto) Neutrophils % (Manual) Band Neutrophils % Lymphocytes % (Manual) Monocytes % (Manual) Toxic Granulation Platelet Estimate Hypochromasia (manual) Anisocytosis (manual) Ovalocytes [place] Cells Smear Path Review ESR Fibrinogen Puncture Site pCO2 pO2 HCO3 ABG pH ABG Total CO2 ABG O2 Saturation ABG Base Excess ABG Hemoglobin ABG Carboxyhemoglobin POC ABG HHb (Measured) ABG Methemoglobin Jann Test A-a O2 Difference Respiratory Index Hgb O2 Saturation Vent Mode Mechanical Rate FiO2 Tidal Volume PEEP Sodium Potassium Chloride Carbon Dioxide Anion Gap BUN Creatinine Est GFR ( Amer) Est GFR (Non-Af Amer) POC Glucose (mg/dL) Random Glucose Lactic Acid 2.4 H Calcium Phosphorus Magnesium Total Bilirubin AST ALT Alkaline Phosphatase Total Creatine Kinase CK-MB (Mass) Total Protein Albumin Globulin Albumin/Globulin Ratio Blood Type O POSITIVE Antibody Screen Negative 04/02/18 04/02/18 04/03/18 17:52 19:25 00:01 WBC RBC Hgb Hct MCV MCH MCHC RDW Plt Count MPV Neut % (Auto) Lymph % (Auto) [place] % (Auto) Eos % (Auto) Baso % (Auto) Neut # (Auto) Lymph # (Auto) [place] # (Auto) Eos # (Auto) Baso # (Auto) Neutrophils % (Manual) Band Neutrophils % Lymphocytes % (Manual) Monocytes % (Manual) Toxic Granulation Platelet Estimate Hypochromasia (manual) Anisocytosis (manual) Ovalocytes [place] Cells Smear Path Review ESR Fibrinogen Puncture Site pCO2 pO2 HCO3 ABG pH ABG Total CO2 ABG O2 Saturation ABG Base Excess ABG Hemoglobin ABG Carboxyhemoglobin POC ABG HHb (Measured) ABG Methemoglobin Jann Test A-a O2 Difference Respiratory Index Hgb O2 Saturation Vent Mode Mechanical Rate FiO2 Tidal Volume PEEP Sodium Potassium Chloride Carbon Dioxide Anion Gap BUN Creatinine Est GFR ( Amer) Est GFR (Non-Af Amer) POC Glucose (mg/dL) 134 H 193 H Random Glucose Lactic Acid 2.1 Calcium Phosphorus Magnesium Total Bilirubin AST ALT Alkaline Phosphatase Total Creatine Kinase CK-MB (Mass) Total Protein Albumin Globulin Albumin/Globulin Ratio Blood Type Antibody Screen 04/03/18 04/03/18 04/03/18 05:32 05:55 06:33 WBC 50.0 H* RBC 3.31 L Hgb 8.5 L Hct 25.7 L MCV 77.4 L D MCH 25.6 L MCHC 33.0 RDW 26.9 H Plt Count 149 D MPV 8.4 Neut % (Auto) 94.9 H Lymph % (Auto) 2.6 L [place] % (Auto) 1.9 Eos % (Auto) 0.5 Baso % (Auto) 0.1 Neut # (Auto) 47.5 H Lymph # (Auto) 1.3 [place] # (Auto) 1.0 H Eos # (Auto) 0.2 Baso # (Auto) 0.0 Neutrophils % (Manual) 90 H Band Neutrophils % 8 H Lymphocytes % (Manual) 1 L Monocytes % (Manual) 1 Toxic Granulation Present Platelet Estimate Normal Hypochromasia (manual) Slight Anisocytosis (manual) Moderate Ovalocytes Slight Datil Cells Slight Smear Path Review ESR 14 Fibrinogen Puncture Site Rb pCO2 27 L pO2 184 H HCO3 21.9 ABG pH 7.46 H ABG Total CO2 20.0 L ABG O2 Saturation 98.8 H ABG Base Excess -3.9 L ABG Hemoglobin 8.7 L ABG Carboxyhemoglobin 1.1 POC ABG HHb (Measured) 1.2 ABG Methemoglobin 1.0 Jann Test Na A-a O2 Difference 67.0 Respiratory Index 0.4 Hgb O2 Saturation 96.6 Vent Mode Prvc Mechanical Rate 16 FiO2 40.0 Tidal Volume 450 PEEP 5 Sodium Potassium Chloride Carbon Dioxide Anion Gap BUN Creatinine Est GFR ( Amer) Est GFR (Non-Af Amer) POC Glucose (mg/dL) 176 H Random Glucose Lactic Acid Calcium Phosphorus Magnesium Total Bilirubin AST ALT Alkaline Phosphatase Total Creatine Kinase CK-MB (Mass) Total Protein Albumin Globulin Albumin/Globulin Ratio Blood Type Antibody Screen 04/03/18 04/03/18 04/03/18 06:33 06:33 11:38 WBC RBC Hgb Hct MCV MCH MCHC RDW Plt Count MPV Neut % (Auto) Lymph % (Auto) [place] % (Auto) Eos % (Auto) Baso % (Auto) Neut # (Auto) Lymph # (Auto) [place] # (Auto) Eos # (Auto) Baso # (Auto) Neutrophils % (Manual) Band Neutrophils % Lymphocytes % (Manual) Monocytes % (Manual) Toxic Granulation Platelet Estimate Hypochromasia (manual) Anisocytosis (manual) Ovalocytes [place] Cells Smear Path Review ESR Fibrinogen 244 Puncture Site pCO2 pO2 HCO3 ABG pH ABG Total CO2 ABG O2 Saturation ABG Base Excess ABG Hemoglobin ABG Carboxyhemoglobin POC ABG HHb (Measured) ABG Methemoglobin Jann Test A-a O2 Difference Respiratory Index Hgb O2 Saturation Vent Mode Mechanical Rate FiO2 Tidal Volume PEEP Sodium 137 Potassium 4.6 Chloride 101 Carbon Dioxide 19 L Anion Gap 22 H BUN 65 H Creatinine 3.8 H Est GFR ( Amer) 15 Est GFR (Non-Af Amer) 12 POC Glucose (mg/dL) 200 H Random Glucose 146 H Lactic Acid Calcium 6.5 L Phosphorus 7.5 H Magnesium 1.5 L Total Bilirubin 0.3 AST 91 H D ALT 79 H Alkaline Phosphatase 161 H Total Creatine Kinase 655 H CK-MB (Mass) 22.2 H Total Protein 3.9 L Albumin 1.8 L Globulin 2.2 Albumin/Globulin Ratio 0.8 L Blood Type Antibody Screen Fingerstick Blood Sugar Results: 146 Review of Systems - Review of Systems All systems: reviewed and no additional remarkable complaints except Critical Care Progress Note - Ventilator Checklist Head of Bed 30 Degrees: Yes Daily Sedation Vacation: Yes Daily Assessment of Readiness to Wean: Yes Daily Spontaneous Breathing Trial: Yes PUD Prophalyxis: Yes DVT Prophylaxis: Yes Oral Care with Chlorhexidine Gluconate {CHG}: Yes - Vent Settings MODE:: PRVC - Nutrition Nutrition: Nutrition Category Date Time Status NPO Diet [DIET] Diets 04/01/18 Breakfast Active Assessment/Plan (1) Anemia Current Visit: No Status: Acute (2) Renal failure Assessment and plan: Patient with a severe acute renal failure, hyperkalemia, severe anemia, severe leukocytosis. Currently being treated for possible multiple organism sepsis, polymicrobial cellulitis of the leg bilaterally. Associated lymphangitis. Acute renal insufficiency, needing renal replacement. Patient also has a severe any mattress at a blood transfusion. Very severe malnourishment noted. Continue the current treatment. Overall prognosis is guarded, speak to the patient's family again today, we will get a surgical opinion regarding these wound management Current Visit: No Status: Acute (3) Rhabdomyolysis Current Visit: No Status: Acute
--- NOTE | 2018-04-03 12:37 | CP.PCM.PN ---
Subjective - Date & Time of Evaluation Date of Evaluation: 04/03/18 Time of Evaluation: 12:35 - Subjective Subjective: Nephrology Consultation Note: Assessment: critical Acute Kidney Injury (N17.9) ? etiology with 5 gram proteinuria and 2 gram albuminuria b/l hydroureteronephrosis Hyperkalemia, HAGMA, acute respi failure Fall with rhabdomyolysis, severe anemia with leukocytsosis with Sepsis Hyperphosphatemia (E83.39), hypocalcemia, hyperuricemia leg wounds Plan Will plan for HD today as ordered 3rd session maintain hemodyanamics stable. Patient not on ACEI/ARB due to LULA Monitor Input/Output, daily weights and renal function with basic metabolic panel pt s/p blood transfusion will start phos binders, nephrovite, vit D, iron once stable and on diet. IV calcium gluconate 2 gram today urology consult for b/l hydro appreciated heme eval appreciated pending C3/C4/ANCA. so far Hep B/C and HIV neg. check renal sono to assess echogenicity Dose meds/antibiotics for reduced GFR. Avoid fleets enema/magnesium based laxatives. Avoid nephrotoxins/NSAIDs Glycemic control Further work up/management as per primary team Thanks for allowing me to participate in care of your patient. Will follow patient with you. Please call if any Qs. d/w ICU team and family bedside Dr Jose G Clancy Office: [phone] HPI: Pt is a 52 F without known medical hx, lives in [place] presented [place] as found to have unresponsiveness and here for further eval found to have severe renal failure, anemia and high WBC count renal consult for LULA eval Denies OTC/herbal meds or NSAIDs No recent iodinated contrast exposure. ROS: unable. intubated 04/01/18 Physical Examination: General Appearance: frail, chronically debilitated and ill appearing, cachexic Vitals reviewed and noted as below Head; Atraumatic, normocephalic ENT: orally intubated EYES: Pupils are equal, round and reactive to light accommodation. Eye muscles and extraocular movement intact. Sclera is anicteric. Neck; supple no lymphadenopathy, no thyromegaly or bruit Lungs: Increased respiratory rate/effort. Breath sounds bilateral equal and clear anteriorly Heart: Normal rate. s1s2 normal. No rub or gallop. Extremities: 1-2+ edema. No varicose veins. has wounds in lower extremities Neurological: Patient is sedated Skin: Warm and dry. Normal turgor. No rash. Palpitation: Normal elasticity for age. has echymoses over lower torso Abdomen: Abdomen is soft. Bowel sounds +. There is no abdominal tenderness, no guarding/rigidity no organomegaly. globular non reducible mass in lower abdomen noted Psych: unable MSK: no joint tenderness or swelling. Digits and nails normal, no deformity : kidney or bladder not palpable. has sawyer Labs/imaging reviewed. Past medical history, past surgical history, family history, social history, allergy reviewed and noted as below Family hx: no hx of CKD. Rest non-contributory Objective - Vital Signs/Intake and Output Vital Signs (last 24 hours): Temp Pulse Resp BP Pulse Ox 97.4 F L 87 17 106/59 L 99 04/03/18 08:00 04/03/18 08:00 04/03/18 08:00 04/03/18 07:59 04/03/18 08:00 Intake and Output: 04/03/18 04/03/18 06:59 18:59 Intake Total 2436.0 241.0 Output Total 350 0 Balance 2086.0 241.0 - Medications Medications: Current Medications Albumin Human (Albumin Human 25% (12.5 Gm/50 Ml)) 12.5 gm IV Q12 [facility] Last Admin: 04/03/18 09:14 Dose: 12.5 gm Albuterol/Ipratropium (Duoneb 3 Mg/0.5 Mg (3 Ml) Ud) 3 ml INH RQ6 PRN PRN Reason: Shortness of Breath Ascorbic Acid (Vitamin C 500 Mg Tab) 500 mg PO BID [facility] Last Admin: 04/03/18 09:15 Dose: 500 mg Heparin Sodium (Porcine) (Heparin) 5,000 units SC Q12 [facility] Last Admin: 04/03/18 09:15 Dose: 5,000 units Linezolid (Zyvox 600mg/300ml D5w) 600 mg in 300 mls @ 200 mls/hr IVPB Q12 [facility] PRN Reason: Protocol Last Admin: 04/03/18 09:16 Dose: 200 mls/hr Dextrose (Dextrose 10% In Water) 500 mls @ 30 mls/hr IV .[id number] [facility] Last Admin: 04/03/18 01:41 Dose: 30 mls/hr Doxycycline Hyclate 100 mg/ (Sodium Chloride) 100 mls @ 100 mls/hr IVPB Q12H [facility] PRN Reason: Protocol Last Admin: 04/03/18 12:05 Dose: 100 mls/hr Clindamycin Phosphate (Cleocin In Normal Saline) 600 mg in 50 mls @ 100 mls/hr IVPB Q8H [facility] PRN Reason: Protocol Last Admin: 04/03/18 11:23 Dose: 100 mls/hr Dexmedetomidine HCl 200 mcg/ (Sodium Chloride) 50 mls @ 2.7 mls/hr IV TITR [facility] ; 0.2 MCG/KG/HR PRN Reason: Protocol Last Admin: 04/03/18 11:15 Dose: 0.2 mcg/kg/hr, 2.7 mls/hr Magnesium Sulfate/Dextrose (Magnesium Sulfate 1 Gm/100 Ml D5w) 1 gm in 100 mls @ 300 mls/hr IVPB Q30M [facility] Stop: 04/03/18 13:04 Lorazepam (Ativan) 2 mg IVP Q6H PRN PRN Reason: Anxiety Last Admin: 04/01/18 22:46 Dose: 2 mg Methylprednisolone (Solu-Medrol) 40 mg IVP Q12H [facility] Stop: 04/04/18 06:01 Last Admin: 04/03/18 05:37 Dose: 40 mg Multivitamins/Vitamin C (Multi-Delyn Liquid) 5 ml PO DAILY [facility] Pantoprazole Sodium (Protonix Inj) 40 mg IVP DAILY [facility] Last Admin: 04/03/18 09:15 Dose: 40 mg Sodium Bicarbonate (Sodium Bicarbonate Tab) 650 mg PO Q6 [facility] Last Admin: 04/03/18 11:41 Dose: 650 mg - Labs Labs: 04/03/18 06:33 04/03/18 06:33 PT 15.5 SECONDS (9.7-12.2) H 04/01/18 21:45 INR 1.4 04/01/18 21:45 APTT 32 SECONDS (21-34) 04/01/18 21:45
[2018-04-03] MEDS: Magnesium Sulfate 1 gm in D5W 1 GM/100 ML BAG IVPB SCH ×2 (13:24→14:36)
[2018-04-03] MEDS: Albuterol-Ipratrop 3 mg / 0.5 (3 ml) UD INH PRN (13:37)
--- NOTE | 2018-04-03 15:36 | CP.PCM.PN ---
Subjective - Date & Time of Evaluation Date of Evaluation: 04/03/18 Time of Evaluation: 03:35 - Subjective Subjective: Dictated Objective - Vital Signs/Intake and Output Vital Signs (last 24 hours): Temp Pulse Resp BP Pulse Ox 97.4 F L 86 9 L 117/72 100 04/03/18 08:00 04/03/18 13:00 04/03/18 13:00 04/03/18 12:59 04/03/18 13:00 Intake and Output: 04/03/18 04/03/18 06:59 18:59 Intake Total 2436.0 351.5 Output Total 350 0 Balance 2086.0 351.5 - Medications Medications: Current Medications Albumin Human (Albumin Human 25% (12.5 Gm/50 Ml)) 12.5 gm IV Q12 [facility] Last Admin: 04/03/18 09:14 Dose: 12.5 gm Albuterol/Ipratropium (Duoneb 3 Mg/0.5 Mg (3 Ml) Ud) 3 ml INH RQ6 PRN PRN Reason: Shortness of Breath Last Admin: 04/03/18 13:37 Dose: 3 ml Ascorbic Acid (Vitamin C 500 Mg Tab) 500 mg PO BID [facility] Last Admin: 04/03/18 09:15 Dose: 500 mg Heparin Sodium (Porcine) (Heparin) 5,000 units SC Q12 [facility] Last Admin: 04/03/18 09:15 Dose: 5,000 units Linezolid (Zyvox 600mg/300ml D5w) 600 mg in 300 mls @ 200 mls/hr IVPB Q12 [facility] PRN Reason: Protocol Last Admin: 04/03/18 09:16 Dose: 200 mls/hr Dextrose (Dextrose 10% In Water) 500 mls @ 30 mls/hr IV .[id number] [facility] Last Admin: 04/03/18 01:41 Dose: 30 mls/hr Doxycycline Hyclate 100 mg/ (Sodium Chloride) 100 mls @ 100 mls/hr IVPB Q12H [facility] PRN Reason: Protocol Last Admin: 04/03/18 12:05 Dose: 100 mls/hr Clindamycin Phosphate (Cleocin In Normal Saline) 600 mg in 50 mls @ 100 mls/hr IVPB Q8H [facility] PRN Reason: Protocol Last Admin: 04/03/18 11:23 Dose: 100 mls/hr Dexmedetomidine HCl 200 mcg/ (Sodium Chloride) 50 mls @ 2.7 mls/hr IV TITR [facility] ; 0.2 MCG/KG/HR PRN Reason: Protocol Last Admin: 04/03/18 11:15 Dose: 0.2 mcg/kg/hr, 2.7 mls/hr Lorazepam (Ativan) 2 mg IVP Q6H PRN PRN Reason: Anxiety Last Admin: 04/01/18 22:46 Dose: 2 mg Methylprednisolone (Solu-Medrol) 40 mg IVP Q12H [facility] Stop: 04/04/18 06:01 Last Admin: 04/03/18 05:37 Dose: 40 mg Multivitamins/Vitamin C (Multi-Delyn Liquid) 5 ml PO DAILY [facility] Pantoprazole Sodium (Protonix Inj) 40 mg IVP DAILY [facility] Last Admin: 04/03/18 09:15 Dose: 40 mg Sodium Bicarbonate (Sodium Bicarbonate Tab) 650 mg PO Q6 [facility] Last Admin: 04/03/18 11:41 Dose: 650 mg - Labs Labs: 04/03/18 06:33 04/03/18 06:33 PT 15.5 SECONDS (9.7-12.2) H 04/01/18 21:45 INR 1.4 04/01/18 21:45 APTT 32 SECONDS (21-34) 04/01/18 21:45
[2018-04-03] MEDS: Multiple Vitamins Oral Solution PO SCH (16:32)
[2018-04-03] MEDS: AMPicillin 2 GM in Sodium Chloride 100 ML IVPB SCH (20:28)
--- NOTE | 2018-04-03 23:26 | CP.PCM.PN ---
Subjective - Date & Time of Evaluation Date of Evaluation: 04/03/18 Time of Evaluation: 17:40 - Subjective Subjective: Pt is seen and examined by me today, awake , alert, following commands, on antibiotics, pt has ecchomysis, high CPK, hogh Wbc, afebrile all over the body Objective - Vital Signs/Intake and Output Vital Signs (last 24 hours): Temp Pulse Resp BP Pulse Ox 97.5 F L 87 15 107/63 100 04/03/18 21:25 04/03/18 22:00 04/03/18 22:00 04/03/18 21:47 04/03/18 22:00 Intake and Output: 04/03/18 04/04/18 18:59 06:59 Intake Total 1958.6 603.5 Output Total 0 0 Balance 1958.6 603.5 - Medications Medications: Current Medications Albumin Human (Albumin Human 25% (12.5 Gm/50 Ml)) 12.5 gm IV Q12 [facility] Last Admin: 04/03/18 21:19 Dose: Not Given Albuterol/Ipratropium (Duoneb 3 Mg/0.5 Mg (3 Ml) Ud) 3 ml INH RQ6 PRN PRN Reason: Shortness of Breath Last Admin: 04/03/18 13:37 Dose: 3 ml Ascorbic Acid (Vitamin C 500 Mg Tab) 500 mg PO BID [facility] Last Admin: 04/03/18 17:15 Dose: 500 mg Heparin Sodium (Porcine) (Heparin) 5,000 units SC Q12 [facility] Last Admin: 04/03/18 21:18 Dose: 5,000 units Linezolid (Zyvox 600mg/300ml D5w) 600 mg in 300 mls @ 200 mls/hr IVPB Q12 [facility] PRN Reason: Protocol Last Admin: 04/03/18 21:17 Dose: 200 mls/hr Dextrose (Dextrose 10% In Water) 500 mls @ 30 mls/hr IV .[id number] [facility] Last Admin: 04/03/18 18:37 Dose: 30 mls/hr Doxycycline Hyclate 100 mg/ (Sodium Chloride) 100 mls @ 100 mls/hr IVPB Q12H [facility] PRN Reason: Protocol Last Admin: 04/03/18 12:05 Dose: 100 mls/hr Clindamycin Phosphate (Cleocin In Normal Saline) 600 mg in 50 mls @ 100 mls/hr IVPB Q8H [facility] PRN Reason: Protocol Last Admin: 04/03/18 20:29 Dose: 100 mls/hr Dexmedetomidine HCl 200 mcg/ (Sodium Chloride) 50 mls @ 2.7 mls/hr IV TITR [facility] ; 0.2 MCG/KG/HR PRN Reason: Protocol Last Admin: 04/03/18 11:15 Dose: 0.2 mcg/kg/hr, 2.7 mls/hr Ampicillin 2 gm/ Sodium (Chloride) 100 mls @ 50 mls/hr IVPB Q12H [facility] PRN Reason: Protocol Last Admin: 04/03/18 20:28 Dose: 50 mls/hr Lorazepam (Ativan) 2 mg IVP Q6H PRN PRN Reason: Anxiety Last Admin: 04/01/18 22:46 Dose: 2 mg Methylprednisolone (Solu-Medrol) 40 mg IVP Q12H [facility] Stop: 04/04/18 06:01 Last Admin: 04/03/18 17:15 Dose: 40 mg Multivitamins/Vitamin C (Multi-Delyn Liquid) 5 ml PO DAILY [facility] Last Admin: 04/03/18 16:32 Dose: 5 ml Pantoprazole Sodium (Protonix Inj) 40 mg IVP DAILY [facility] Last Admin: 04/03/18 09:15 Dose: 40 mg Sodium Bicarbonate (Sodium Bicarbonate Tab) 650 mg PO Q6 [facility] Last Admin: 04/03/18 17:18 Dose: 650 mg - Labs Labs: 04/03/18 06:33 04/03/18 06:33 PT 15.5 SECONDS (9.7-12.2) H 04/01/18 21:45 INR 1.4 04/01/18 21:45 APTT 32 SECONDS (21-34) 04/01/18 21:45 - Constitutional Appears: No Acute Distress, Chronically Ill - Head Exam Head Exam: ATRAUMATIC, NORMAL INSPECTION, NORMOCEPHALIC - Eye Exam Eye Exam: EOMI, Normal appearance, PERRL Pupil Exam: NORMAL ACCOMODATION, PERRL - Respiratory Exam Respiratory Exam: Decreased Breath Sounds, Rales, Rhonchi - Cardiovascular Exam Cardiovascular Exam: REGULAR RHYTHM, +S1, +S2. absent: Murmur - GI/Abdominal Exam GI & Abdominal Exam: Soft, Normal Bowel Sounds. absent: Tenderness - Neurological Exam Neurological Exam: Alert, Awake, CN II-XII Intact, Oriented x3 - Psychiatric Exam Psychiatric exam: Normal Affect - Skin Additional comments: ecchomysis Assessment and Plan (1) Coagulopathy Status: Acute (2) Altered mental status Status: Acute (3) Myoglobinuria Status: Acute (4) Renal failure Status: Acute
--- NOTE | 2018-04-04 00:22 | PN ---
DATE: 04/03/2018 SUBJECTIVE: The patient was seen this afternoon. She was very awake, remained intubated. She did receive hemodialysis. It seems like she is following simple commands. I asked her if she went for any scuba diving or any other sea sports in the water, she denied that. She still said she only went swimming in [place]. She also denies seeing any doctor from November on in this year. She remains intubated, but her extremities remain with ecchymosis and had some blistering present in the thigh area and extensive discoloration of the skin with ecchymosis, appears mottled, but has not changed much since yesterday. Her white count has gone to 50,000 yesterday. The blood culture came out gram positive bacilli, and I have asked the lab to look into it, and they are not sure, but they said it may be Listeria, and they are looking definitely in it, and if that is so, maybe she ate some cheese which could have given this, but she is mentally there right now. Yesterday, she was on vancomycin alternate days, meropenem, clindamycin, doxycycline and Zyvox, but this hospital policy of empirically removing drugs had just becoming very confusing, now I find she is not on meropenem and since I know, she may have Listeria, I would add ampicillin instead and continue with the Zyvox, ampicillin, and give her one dose of gentamicin today and follow the culture reports. Also I have ordered echo, and she does have groin lines, which needs to be changed soon, as her white count is going up, and she has these foul smelling eschars and blistering and lymphatic spread going on. We are keeping the doxycycline on as it may be Vibrio vulnificus because if she has Listeria, it does not present with any skin problems that I know of, but will look into it. PHYSICAL EXAMINATION: VITAL SIGNS: Her vitals are otherwise stable. She is intubated. HEENT: Head is atraumatic and normocephalic. NECK: Supple. LUNGS: Clear at this time. HEART: S1 and S2, regular. ABDOMEN: Soft and nontender. She has umbilical hernia and she has all these bullous lesions with weeping edema in the groin area as well as in the thigh area and has mottled appearance of the skin with ecchymosis, extensive one both lower extremities and on the chest wall and abdomen and extremities, but they are less warm to touch today. Other than that, I do not see much of a change, remains cyanotic, nonblanching, and it is covering lot of abdomen part as well as the chest wall, and she has this macerated smell from these blisters. We will tell them to take a culture from there, and see if we can look for any vibrio on the stains. We will get that done. At this time, I would add ampicillin and give her one dose of gentamicin, as she is already on dialysis, and we will wait for the culture report tomorrow and we will follow. If it is Listeria, ampicillin and gentamicin remains the drug of choice, and we will continue the other antibiotics for now, and all these antibiotics should be continued everyday. 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 Festus Camarena MD
[2018-04-04] MEDS: Clindamycin 600mg/50ml NS 600 MG/50 ML BAG IVPB SCH ×2 (03:11→12:10)
[2018-04-04] MEDS: MethylPREDNISolone 40 mg Vial IVP SCH (05:10)
--- NOTE | 2018-04-04 05:55 | CP.PCM.CON ---
History of Present Illness - History of Present Illness History of Present Illness: Surgical consult: DR. Ovalles Reason for consult: LE wounds CC: AMS HPI: Patient intubated, history obtained from prior documentation. Patient is a 52 y/o female who was [place] on cruise [place]. Patient was taken to [facility] and found to be in ARF and in need of HD. Patient [place] Sh[place] [facility] transferred to [facility]. Patient was found to be septic and intubated and admitted to ICU for further care. Of note, LE wounds were seen bilaterally with concern for lymphangitis ascending into her groin upon admission. Family is unaware of any medical problems. Patient is alert and can nod to some questioning. She denies having wounds or problems with her legs prior to now. PMH: unknown PSH: unknown Social: unknown Review of Systems - Review of Systems Systems not reviewed;Unavailable: Intubated Past Patient History - Past Medical History & Family History Past Medical History?: Yes - Past Social History Smoking Status: Never Smoked - CARDIAC Hx Cardiac Disorders: (UNKNOWN) - PULMONARY Hx Respiratory Disorders: (UNKNOWN) - NEUROLOGICAL Hx Neurological Disorder: (UNKNOWN) - HEENT Hx HEENT Problems: (UNKNOWN) - RENAL Hx Chronic Kidney Disease: (UNKNOWN) - ENDOCRINE/METABOLIC Hx Endocrine Disorders: (UNKNOWN) - HEMATOLOGICAL/ONCOLOGICAL Hx Blood Disorders: (UNKNOWN) Hx Anemia: Yes (04-01-18) Other/Comment: SEPSIS 04-01-18 - INTEGUMENTARY Other/Comment: BLLE sores. Discoloration to Abd area. Umbilical hernia - MUSCULOSKELETAL/RHEUMATOLOGICAL Hx Musculoskeletal Disorders: (UNKNOWN) Hx Falls: Yes - GASTROINTESTINAL Hx Gastrointestinal Disorders: Yes (NON REDUCIBLE UMBILICAL HERNIA) - GENITOURINARY/GYNECOLOGICAL Hx Genitourinary Disorders: (UNKNOWN) - PSYCHIATRIC Hx Substance Use: No - SURGICAL HISTORY Hx Surgeries: No - ANESTHESIA Hx Anesthesia: No Hx Anesthesia Reactions: No Meds Allergies/Adverse Reactions: Allergies Allergy/AdvReac Type Severity Reaction Status Date / Time No Known Allergies Allergy Verified 04/01/18 17:21 - Medications Medications: Current Medications Albumin Human (Albumin Human 25% (12.5 Gm/50 Ml)) 12.5 gm IV Q12 NOLAN Last Admin: 04/03/18 21:19 Dose: Not Given Albuterol/Ipratropium (Duoneb 3 Mg/0.5 Mg (3 Ml) Ud) 3 ml INH RQ6 PRN PRN Reason: Shortness of Breath Last Admin: 04/03/18 13:37 Dose: 3 ml Ascorbic Acid (Vitamin C 500 Mg Tab) 500 mg PO BID [facility] Last Admin: 04/03/18 17:15 Dose: 500 mg Heparin Sodium (Porcine) (Heparin) 5,000 units SC Q12 NOLAN Last Admin: 04/03/18 21:18 Dose: 5,000 units Linezolid (Zyvox 600mg/300ml D5w) 600 mg in 300 mls @ 200 mls/hr IVPB Q12 NOLAN PRN Reason: Protocol Last Admin: 04/03/18 21:17 Dose: 200 mls/hr Dextrose (Dextrose 10% In Water) 500 mls @ 30 mls/hr IV .[id number] [facility] Last Admin: 04/03/18 18:37 Dose: 30 mls/hr Doxycycline Hyclate 100 mg/ (Sodium Chloride) 100 mls @ 100 mls/hr IVPB Q12H NOLAN PRN Reason: Protocol Last Admin: 04/04/18 01:16 Dose: 100 mls/hr Clindamycin Phosphate (Cleocin In Normal Saline) 600 mg in 50 mls @ 100 mls/hr IVPB Q8H NOLAN PRN Reason: Protocol Last Admin: 04/04/18 03:11 Dose: 100 mls/hr Dexmedetomidine HCl 200 mcg/ (Sodium Chloride) 50 mls @ 2.7 mls/hr IV TITR NOLAN ; 0.2 MCG/KG/HR PRN Reason: Protocol Last Admin: 04/03/18 11:15 Dose: 0.2 mcg/kg/hr, 2.7 mls/hr Ampicillin 2 gm/ Sodium (Chloride) 100 mls @ 50 mls/hr IVPB Q12H NOLAN PRN Reason: Protocol Last Admin: 04/03/18 20:28 Dose: 50 mls/hr Lorazepam (Ativan) 2 mg IVP Q6H PRN PRN Reason: Anxiety Last Admin: 04/01/18 22:46 Dose: 2 mg Methylprednisolone (Solu-Medrol) 40 mg IVP Q12H [facility] Stop: 04/04/18 06:01 Last Admin: 04/04/18 05:10 Dose: 40 mg Multivitamins/Vitamin C (Multi-Delyn Liquid) 5 ml PO DAILY [facility] Last Admin: 04/03/18 16:32 Dose: 5 ml Pantoprazole Sodium (Protonix Inj) 40 mg IVP DAILY [facility] Last Admin: 04/03/18 09:15 Dose: 40 mg Sodium Bicarbonate (Sodium Bicarbonate Tab) 650 mg PO Q6 [facility] Last Admin: 04/04/18 05:10 Dose: 650 mg Physical Exam - Constitutional Appears: Toxic, No Acute Distress - Head Exam Head Exam: ATRAUMATIC, NORMOCEPHALIC - Eye Exam Eye Exam: Normal appearance - ENT Exam ENT Exam: Mucous Membranes Dry - Neck Exam Neck exam: Negative for: Lymphadenopathy, Tenderness - Respiratory Exam Additional comments: mechanical ventilation - Cardiovascular Exam Cardiovascular Exam: REGULAR RHYTHM. absent: Tachycardia - GI/Abdominal Exam GI & Abdominal Exam: Soft. absent: Distended, Tenderness Additional comments: large reducible ventral wall hernia palpable - Extremities Exam Extremities exam: Positive for: pedal edema, pedal pulses present. Negative for : calf tenderness, normal capillary refill, tenderness Additional comments: mottling throughout LE w/ purplish straking ascending from ankle to axilla moderate weaping edema and blistering noted below knees bilaterally bilateral anterior medial necrotic appearing wounds no foul odor or purulent drainage DP pulses appreciated Results - Vital Signs Recent Vital Signs: Last Vital Signs Temp 97.5 F L 04/04/18 03:57 Pulse 81 04/04/18 04:00 Resp 17 04/04/18 04:00 BP 101/62 04/04/18 03:48 Pulse Ox 100 04/04/18 04:00 - Labs Result Diagrams: 04/03/18 06:33 04/03/18 06:33 Labs: Laboratory Results - last 24 hr 04/01/18 04/02/18 04/03/18 20:10 08:41 05:32 WBC RBC Hgb Hct MCV MCH MCHC RDW Plt Count MPV Neut % (Auto) Lymph % (Auto) [place] % (Auto) Eos % (Auto) Baso % (Auto) Neut # (Auto) Lymph # (Auto) [place] # (Auto) Eos # (Auto) Baso # (Auto) Neutrophils % (Manual) Band Neutrophils % Lymphocytes % (Manual) Monocytes % (Manual) Toxic Granulation Platelet Estimate Hypochromasia (manual) Anisocytosis (manual) Ovalocytes [place] Cells Smear Path Review ESR Fibrinogen Puncture Site Rb pCO2 27 L pO2 184 H HCO3 21.9 ABG pH 7.46 H ABG Total CO2 20.0 L ABG O2 Saturation 98.8 H ABG Base Excess -3.9 L ABG Hemoglobin 8.7 L ABG Carboxyhemoglobin 1.1 POC ABG HHb (Measured) 1.2 ABG Methemoglobin 1.0 Jann Test Na A-a O2 Difference 67.0 Respiratory Index 0.4 Hgb O2 Saturation 96.6 Vent Mode Prvc Mechanical Rate 16 FiO2 40.0 Tidal Volume 450 PEEP 5 Sodium Potassium Chloride Carbon Dioxide Anion Gap BUN Creatinine Est GFR ( Amer) Est GFR (Non-Af Amer) POC Glucose (mg/dL) Random Glucose Calcium Phosphorus Magnesium Total Bilirubin AST ALT Alkaline Phosphatase Total Creatine Kinase CK-MB (Mass) Total Protein Total Protein (PEP) 3.8 L Albumin Globulin Albumin/Globulin Ratio Calcium (PTH Intact) 5.9 L PTH w/Ion &Tot Calcium 397 H 04/03/18 04/03/18 04/03/18 05:55 06:33 06:33 WBC 50.0 H* RBC 3.31 L Hgb 8.5 L Hct 25.7 L MCV 77.4 L D MCH 25.6 L MCHC 33.0 RDW 26.9 H Plt Count 149 D MPV 8.4 Neut % (Auto) 94.9 H Lymph % (Auto) 2.6 L [place] % (Auto) 1.9 Eos % (Auto) 0.5 Baso % (Auto) 0.1 Neut # (Auto) 47.5 H Lymph # (Auto) 1.3 [place] # (Auto) 1.0 H Eos # (Auto) 0.2 Baso # (Auto) 0.0 Neutrophils % (Manual) 90 H Band Neutrophils % 8 H Lymphocytes % (Manual) 1 L Monocytes % (Manual) 1 Toxic Granulation Present Platelet Estimate Normal Hypochromasia (manual) Slight Anisocytosis (manual) Moderate Ovalocytes Slight [place] Cells Slight Smear Path Review ESR 14 Fibrinogen Puncture Site pCO2 pO2 HCO3 ABG pH ABG Total CO2 ABG O2 Saturation ABG Base Excess ABG Hemoglobin ABG Carboxyhemoglobin POC ABG HHb (Measured) ABG Methemoglobin Jann Test A-a O2 Difference Respiratory Index Hgb O2 Saturation Vent Mode Mechanical Rate FiO2 Tidal Volume PEEP Sodium 137 Potassium 4.6 Chloride 101 Carbon Dioxide 19 L Anion Gap 22 H BUN 65 H Creatinine 3.8 H Est GFR ( Amer) 15 Est GFR (Non-Af Amer) 12 POC Glucose (mg/dL) 176 H Random Glucose 146 H Calcium 6.5 L Phosphorus 7.5 H Magnesium 1.5 L Total Bilirubin 0.3 AST 91 H D ALT 79 H Alkaline Phosphatase 161 H Total Creatine Kinase 655 H CK-MB (Mass) 22.2 H Total Protein 3.9 L Total Protein (PEP) Albumin 1.8 L Globulin 2.2 Albumin/Globulin Ratio 0.8 L Calcium (PTH Intact) PTH w/Ion &Tot Calcium 04/03/18 04/03/18 04/03/18 06:33 11:38 17:39 WBC RBC Hgb Hct MCV MCH MCHC RDW Plt Count MPV Neut % (Auto) Lymph % (Auto) [place] % (Auto) Eos % (Auto) Baso % (Auto) Neut # (Auto) Lymph # (Auto) [place] # (Auto) Eos # (Auto) Baso # (Auto) Neutrophils % (Manual) Band Neutrophils % Lymphocytes % (Manual) Monocytes % (Manual) Toxic Granulation Platelet Estimate Hypochromasia (manual) Anisocytosis (manual) Ovalocytes [place] Cells Smear Path Review ESR Fibrinogen 244 Puncture Site pCO2 pO2 HCO3 ABG pH ABG Total CO2 ABG O2 Saturation ABG Base Excess ABG Hemoglobin ABG Carboxyhemoglobin POC ABG HHb (Measured) ABG Methemoglobin Jann Test A-a O2 Difference Respiratory Index Hgb O2 Saturation Vent Mode Mechanical Rate FiO2 Tidal Volume PEEP Sodium Potassium Chloride Carbon Dioxide Anion Gap BUN Creatinine Est GFR ( Amer) Est GFR (Non-Af Amer) POC Glucose (mg/dL) 200 H 173 H Random Glucose Calcium Phosphorus Magnesium Total Bilirubin AST ALT Alkaline Phosphatase Total Creatine Kinase CK-MB (Mass) Total Protein Total Protein (PEP) Albumin Globulin Albumin/Globulin Ratio Calcium (PTH Intact) PTH w/Ion &Tot Calcium 04/03/18 23:23 WBC RBC Hgb Hct MCV MCH MCHC RDW Plt Count MPV Neut % (Auto) Lymph % (Auto) [place] % (Auto) Eos % (Auto) Baso % (Auto) Neut # (Auto) Lymph # (Auto) [place] # (Auto) Eos # (Auto) Baso # (Auto) Neutrophils % (Manual) Band Neutrophils % Lymphocytes % (Manual) Monocytes % (Manual) Toxic Granulation Platelet Estimate Hypochromasia (manual) Anisocytosis (manual) Ovalocytes [place] Cells Smear Path Review ESR Fibrinogen Puncture Site pCO2 pO2 HCO3 ABG pH ABG Total CO2 ABG O2 Saturation ABG Base Excess ABG Hemoglobin ABG Carboxyhemoglobin POC ABG HHb (Measured) ABG Methemoglobin Jann Test A-a O2 Difference Respiratory Index Hgb O2 Saturation Vent Mode Mechanical Rate FiO2 Tidal Volume PEEP Sodium Potassium Chloride Carbon Dioxide Anion Gap BUN Creatinine Est GFR ( Amer) Est GFR (Non-Af Amer) POC Glucose (mg/dL) 180 H Random Glucose Calcium Phosphorus Magnesium Total Bilirubin AST ALT Alkaline Phosphatase Total Creatine Kinase CK-MB (Mass) Total Protein Total Protein (PEP) Albumin Globulin Albumin/Globulin Ratio Calcium (PTH Intact) PTH w/Ion &Tot Calcium - Impressions Impression: pulses appreciated CT with fascitis, anasarca, no gas gangrene or necrosis seen Duplex u/s: negative for DVT Assessment & Plan - Assessment and Plan (Free Text) Assessment: 52 y/o female w/ sepsis multifactorial etiology with bilateral LE wounds Plan: -recommend leg elevation to decrease edema -vascular supply intact -local wound care -pending clinical course may consider debridement if family agreeable -will d/w Dr. Ovalles -further recs per him AKWhite PGY3
[2018-04-04 06:12] LABS: ABG ALLEN TEST POS; ARTERIAL BLOOD GAS HCO3 24.6 mmol/L (21-28); ARTERIAL BLOOD GAS HEMOGLOBIN 7.1 g/dL (11.7-17.4); ARTERIAL BLOOD GAS O2 SAT 98.4 % (95-98); ARTERIAL BLOOD GAS PCO2 24 mm/Hg (35-45); ARTERIAL BLOOD GAS PH 7.56 (7.35-7.45); ARTERIAL BLOOD GAS PO2 188 mm/Hg (80-100); ARTERIAL BLOOD GAS TCO2 22.2 mmol/L (22-28)
[2018-04-04] MEDS: AMPicillin 2 GM in Sodium Chloride 100 ML IVPB SCH ×2 (06:14→18:02)
[2018-04-04] MEDS: Dexmedetomidine Hydrochloride 200 MCG in Sodium Chloride 0.9% 48 ML IV SCH (06:22)
[2018-04-04 06:26] LABS: ALBUMIN (PEP) 1.7 g/dL (3.8-4.8); ALPHA-1-GLOBULIN (PEP) 0.5 g/dL (0.2-0.3)
[2018-04-04 06:44] LABS: EOS # 0.1 K/uL (0.0-0.7); EOS % 0.1 % (0.0-4.0); HEMOGLOBIN 6.8 g/dL (11.0-16.0); MEAN CELL VOLUME 77.1 fL (81.0-99.0); MEAN CORPUSCULAR HEMOGLOBIN 25.5 pg (27.0-31.0); MEAN PLATELET VOLUME 8.5 fL (7.2-11.7); MONO # 1.2 K/uL (0.0-0.8); MONO % 2.5 % (0.0-10.0); NEUT # 44.8 K/uL (1.8-7.0); NEUT % 95.4 % (50.0-75.0); NRBC % 0.1 % (0.0-2.0); PLATELET COUNT 85 K/uL (130-400); RBC 2.66 Mil/uL (3.80-5.20); RED CELL DISTRIBUTION WIDTH 27.5 % (11.5-14.5)
[2018-04-04 07:17] LABS: ALB/GLOB RATIO 0.9 (1.0-2.1); ALBUMIN 1.9 g/dL (3.5-5.0); CALCIUM 7.1 mg/dl (8.6-10.4)
[2018-04-04 08:31] LABS: ANISOCYTOSIS MARKED; BANDS 2 % (0-2); LYMPHOCYTE 4 % (20-40); NEUTROPHIL 94 % (50-75); PLATELET ESTIMATE DECREASED (NORMAL); TOTAL CELLS COUNTED 100
[2018-04-04 08:32] LABS: HYPOCHROMIC MODERATE; TOXIC GRANULATION PRESENT
[2018-04-04] MEDS: Meropenem 500 MG in Sodium Chloride 0.9% 100 ML IVPB SCH (09:47)
[2018-04-04] MEDS: Linezolid 600 mg in D5W 300 ml 600 MG/300 ML BAG IVPB SCH ×2 (09:48→21:47)
[2018-04-04] MEDS: Albumin Human 25% (12.5 gm/50 ml) IV SCH ×2 (10:07→22:11)
[2018-04-04] MEDS: Multiple Vitamins Oral Solution PO SCH (10:10)
--- NOTE | 2018-04-04 10:10 | US ---
PROCEDURE: Ultrasound of the Kidneys HISTORY: LULA COMPARISON: None available. TECHNIQUE: Sonogram of the kidneys. FINDINGS: RIGHT KIDNEY: Measures: 9.5 cm. Normal in size, contour and echogenicity. No mass. Mild hydronephrosis. . Two nonobstructing mid renal calculi, 4 mm and 6 mm. LEFT KIDNEY: Measures: 8.7 cm. Normal in size, contour and echogenicity. No mass or calculus. Mild hydronephrosis. . OTHER FINDINGS: None. IMPRESSION: Mild bilateral hydronephrosis. Two small nonobstructing right renal calculi.
--- NOTE | 2018-04-04 10:17 | RAD ---
Chest x-ray single frontal view History: Intubation. Comparison: 04/03/2018 Findings: Endotracheal and NG tube in place. Mild venous congestion. Bilateral hilar prominence. Tortuous ectatic aorta. Biapical pleural thickening with upper lobe granulomatous changes. Degenerative changes in the spine and shoulders. Impression: Endotracheal and NG tube in place. Mild venous congestion. Bilateral hilar prominence. Tortuous ectatic aorta. Biapical pleural thickening with upper lobe granulomatous changes.
[2018-04-04] MEDS: Ergocalciferol 50,000 Intl Units Cap PO SCH (12:11)
--- NOTE | 2018-04-04 12:33 | CP.PCM.PN ---
Subjective - Date & Time of Evaluation Date of Evaluation: 04/04/18 Time of Evaluation: 12:30 - Subjective Subjective: Nephrology Consultation Note: Assessment: critical Acute Kidney Injury (N17.9) ? etiology with 5 gram proteinuria and 2 gram albuminuria b/l hydroureteronephrosis Hyperkalemia, HAGMA, acute respi failure Fall with rhabdomyolysis, severe anemia with leukocytsosis with Sepsis Hyperphosphatemia (E83.39), hypocalcemia, hyperuricemia, Vit D def, anemia, sec hyperparathyroidism leg wounds Plan Will plan for HD tomorrow, no acute need today. please have vascular surgery for permacath placement. maintain hemodyanamics stable. Patient not on ACEI/ARB due to LULA Monitor Input/Output, daily weights and renal function with basic metabolic panel pt s/p blood transfusion started phos binders, nephrovite, vit D, iron supplements urology consult for b/l hydro appreciated heme, ID eval appreciated so far Hep B/C and HIV neg. renal sono: normal echogenicity but pt not stable to tolerate invasive procedure such as kidney biopsy. Vasculitis panel sent. Dose meds/antibiotics for reduced GFR. Avoid fleets enema/magnesium based laxatives. Avoid nephrotoxins/NSAIDs Glycemic control Further work up/management as per primary team Thanks for allowing me to participate in care of your patient. Will follow patient with you. Please call if any Qs. had d/w ICU team and family bedside Dr Jose G Clancy Office: [phone] HPI: Pt is a 52 F without known medical hx, lives [place] as found to have unresponsiveness and here for further eval found to have severe renal failure, anemia and high WBC count renal consult for LULA eval Denies OTC/herbal meds or NSAIDs No recent iodinated contrast exposure. ROS: unable. intubated 04/01/18 Physical Examination: General Appearance: frail, chronically debilitated and ill appearing, cachexic Vitals reviewed and noted as below Head; Atraumatic, normocephalic ENT: orally intubated EYES: Pupils are equal, round and reactive to light accommodation. Eye muscles and extraocular movement intact. Sclera is anicteric. Neck; supple no lymphadenopathy, no thyromegaly or bruit Lungs: Increased respiratory rate/effort. Breath sounds bilateral equal and clear anteriorly Heart: Normal rate. s1s2 normal. No rub or gallop. Extremities: 1-2+ edema. No varicose veins. has wounds in lower extremities Neurological: Patient is sedated Skin: Warm and dry. Normal turgor. No rash. Palpitation: Normal elasticity for age. has echymoses over lower torso Abdomen: Abdomen is soft. Bowel sounds +. There is no abdominal tenderness, no guarding/rigidity no organomegaly. globular non reducible mass in lower abdomen noted Psych: unable MSK: no joint tenderness or swelling. Digits and nails normal, no deformity : kidney or bladder not palpable. has sawyer Labs/imaging reviewed. Past medical history, past surgical history, family history, social history, allergy reviewed and noted as below Family hx: no hx of CKD. Rest non-contributory Objective - Vital Signs/Intake and Output Vital Signs (last 24 hours): Temp Pulse Resp BP Pulse Ox 97.2 F L 78 17 110/72 100 04/04/18 12:00 04/04/18 12:00 04/04/18 12:00 04/04/18 12:11 04/04/18 12:00 Intake and Output: 04/04/18 04/04/18 06:59 18:59 Intake Total 1627.4 751.2 Output Total 1200 Balance 427.4 751.2 - Medications Medications: Current Medications Albumin Human (Albumin Human 25% (12.5 Gm/50 Ml)) 12.5 gm IV Q12 [facility] Last Admin: 04/04/18 10:07 Dose: 12.5 gm Albuterol/Ipratropium (Duoneb 3 Mg/0.5 Mg (3 Ml) Ud) 3 ml INH RQ6 PRN PRN Reason: Shortness of Breath Last Admin: 04/03/18 13:37 Dose: 3 ml Ascorbic Acid (Vitamin C 500 Mg Tab) 500 mg PO BID [facility] Last Admin: 04/04/18 10:08 Dose: 500 mg Calcium Acetate (Phoslo) 667 mg PO TIDCC [facility] Last Admin: 04/04/18 12:14 Dose: 667 mg Ergocalciferol (Drisdol 50,000 Intl Units Cap) 1 cap PO Q7D [facility] Last Admin: 04/04/18 12:11 Dose: 1 cap Ferrous Gluconate (Fergon) 324 mg PO TID [facility] Heparin Sodium (Porcine) (Heparin) 5,000 units SC Q12 [facility]OLAN Last Admin: 04/03/18 21:18 Dose: 5,000 units Linezolid (Zyvox 600mg/300ml D5w) 600 mg in 300 mls @ 200 mls/hr IVPB Q12 [facility]OLAN PRN Reason: Protocol Last Admin: 04/04/18 09:48 Dose: 200 mls/hr Doxycycline Hyclate 100 mg/ (Sodium Chloride) 100 mls @ 100 mls/hr IVPB Q12H [facility] PRN Reason: Protocol Last Admin: 04/04/18 12:15 Dose: 100 mls/hr Clindamycin Phosphate (Cleocin In Normal Saline) 600 mg in 50 mls @ 100 mls/hr IVPB Q8H [facility] PRN Reason: Protocol Last Admin: 04/04/18 12:10 Dose: 100 mls/hr Dexmedetomidine HCl 200 mcg/ (Sodium Chloride) 50 mls @ 2.7 mls/hr IV TITR NOLAN ; 0.2 MCG/KG/HR PRN Reason: Protocol Last Admin: 04/04/18 06:22 Dose: 0.2 mcg/kg/hr, 2.7 mls/hr Ampicillin 2 gm/ Sodium (Chloride) 100 mls @ 50 mls/hr IVPB Q12H [facility] PRN Reason: Protocol Last Admin: 04/04/18 06:14 Dose: 50 mls/hr Meropenem 500 mg/ Sodium (Chloride) 100 mls @ 200 mls/hr IVPB Q24H [facility] PRN Reason: Protocol Last Admin: 04/04/18 09:47 Dose: 200 mls/hr Lorazepam (Ativan) 2 mg IVP Q6H PRN PRN Reason: Anxiety Last Admin: 04/01/18 22:46 Dose: 2 mg Multivitamins/Vitamin C (Multi-Delyn Liquid) 5 ml PO DAILY [facility] Last Admin: 04/04/18 10:10 Dose: 5 ml Pantoprazole Sodium (Protonix Inj) 40 mg IVP DAILY [facility] Last Admin: 04/04/18 10:08 Dose: 40 mg - Labs Labs: 04/04/18 06:39 04/04/18 06:39 PT 15.5 SECONDS (9.7-12.2) H 04/01/18 21:45 INR 1.4 04/01/18 21:45 APTT 32 SECONDS (21-34) 04/01/18 21:45
--- NOTE | 2018-04-04 12:54 | CP.CCUPN ---
<Mik Huynh - Last Filed: 04/04/18 16:45> CCU Subjective - Physician Review Subjective (Free Text): Patient has been and examined. Patient is currently intubated tolerating 40% FiO2 CCU Objective - Vital Signs / Intake & Output Vital Signs (Last 4 hours): Vital Signs Temp Pulse Resp BP Pulse Ox 04/04/18 12:49 98.1 F 71 18 97/58 L 04/04/18 12:45 98.1 F 88 17 118/56 L 04/04/18 12:11 110/72 04/04/18 12:00 97.2 F L 78 17 110/72 100 04/04/18 11:57 98 F 78 18 116/73 04/04/18 11:56 116/73 04/04/18 11:13 98 F 81 17 100/53 L 04/04/18 11:00 76 18 100/54 L 100 04/04/18 10:56 83 14 100 04/04/18 10:43 98.1 F 85 21 100/57 L 04/04/18 10:28 98 F 88 22 99/54 L 04/04/18 10:13 98 F 87 21 107/56 L 04/04/18 10:00 82 19 103/63 100 04/04/18 09:00 78 16 99/61 L 100 Intake and Output (Last 8hrs): Intake & Output 04/03/18 04/04/18 04/04/18 22:59 06:59 14:59 Intake Total 821.6 1091.6 1076.2 Output Total 1200 Balance -378.4 1091.6 1076.2 Weight 125 lb Intake: IV 50 Intake, IV Amount 511.6 761.6 576.2 Left Antecubital 21.6 21.6 16.2 Right Femoral 250 500 right fem 240 240 560 Tube Feeding 200 280 175 Blood Product 325 Red Blood Cells Cpd As1 325 Lr Unit [id number] Red Blood Cells Cpd As1 0 Lr Unit [id number] Other 110 Output: Urine 0 Urethral ([place]) 0 Other 1200 - Physical Exam Head: Positive for: Atraumatic Mouth: Positive for: Moist Mucous Membranes Respiratory/Chest: Positive for: Good Air Exchange. Negative for: Respiratory Distress, Accessory Muscle Use Abdomen: Positive for: Other (abdomen reveals a 5 cm circular bulb no Bowel sounds in bulb) Upper Extremity: Negative for: Cyanosis Lower Extremity: Positive for: Other (non-blanching ecchymotic lesions covering more than 25 percent of lower and abdomen) Neurological: Negative for: GCS=15 (11T) - Medications Active Medications: Active Medications Generic Name Dose Route Start Last Admin Trade Name Freq PRN Reason Stop Dose Admin Albumin Human 12.5 gm 04/01/18 22:30 04/04/18 10:07 Albumin Human 25% (12.5 Gm/50 Ml) IV 12.5 gm Q12 NOLAN Administration Albuterol/Ipratropium 3 ml 04/03/18 09:30 04/03/18 13:37 Duoneb 3 Mg/0.5 Mg (3 Ml) Ud INH 3 ml RQ6 PRN Administration Shortness of Breath Ascorbic Acid 500 mg 04/02/18 10:00 04/04/18 10:08 Vitamin C 500 Mg Tab PO 500 mg BID NOLAN Administration Calcium Acetate 667 mg 04/04/18 12:00 04/04/18 12:14 Phoslo PO 667 mg TIDCC NOLAN Administration Ergocalciferol 1 cap 04/04/18 10:45 04/04/18 12:11 Drisdol 50,000 Intl Units Cap PO 1 cap Q7D NOLAN Administration Ferrous Gluconate 324 mg 04/04/18 14:00 Fergon PO TID NOLAN Heparin Sodium (Porcine) 5,000 units 04/02/18 22:00 04/03/18 21:18 Heparin SC 5,000 units Q12 NOLAN Administration Linezolid 600 mg in 300 mls @ 200 mls/hr 04/01/18 22:00 04/04/18 09:48 Zyvox 600mg/300ml D5w IVPB 200 mls/hr Q12 NOLAN Administration Protocol Doxycycline Hyclate 100 mg/ 100 mls @ 100 mls/hr 04/02/18 13:00 04/04/18 12: 15 Sodium Chloride IVPB 100 mls/hr Q12H NOLAN Administration Protocol Clindamycin Phosphate 600 mg in 50 mls @ 100 mls/hr 04/03/18 04:00 04/04/18 12:10 Cleocin In Normal Saline IVPB 100 mls/hr Q8H NOLAN Administration Protocol Dexmedetomidine HCl 200 mcg/ 50 mls @ 2.7 mls/hr 04/03/18 09:45 04/04/18 06: 22 Sodium Chloride IV 0.2 mcg/kg/hr TITR NOLAN 2.7 mls/hr Protocol Administration 0.2 MCG/KG/HR Ampicillin 2 gm/ Sodium 100 mls @ 50 mls/hr 04/03/18 19:00 04/04/18 06:14 Chloride IVPB 50 mls/hr Q12H NOLAN Administration Protocol Meropenem 500 mg/ Sodium 100 mls @ 200 mls/hr 04/04/18 10:00 04/04/18 09:47 Chloride IVPB 200 mls/hr Q24H NOLAN Administration Protocol Lorazepam 2 mg 04/01/18 22:32 04/01/18 22:46 Ativan IVP 2 mg Q6H PRN Administration Anxiety Multivitamins/Vitamin C 5 ml 04/03/18 10:15 04/04/18 10:10 Multi-Delyn Liquid PO 5 ml DAILY NOLAN Administration Pantoprazole Sodium 40 mg 04/02/18 10:00 04/04/18 10:08 Protonix Inj IVP 40 mg DAILY NOLAN Administration - Patient Studies Lab Studies: Microbiology Studies 04/03/18 20:22 Gram Stain - Final Leg - Left Wound Culture - Preliminary NO GROWTH AFTER 24 HOURS 04/03/18 19:30 Gram Stain - Final Leg - Right Wound Culture - Preliminary NO GROWTH AFTER 24 HOURS 04/02/18 08:53 Blood Culture - Preliminary Blood-Venous NO GROWTH AFTER 48 HOURS 04/02/18 08:53 Blood Culture - Preliminary Blood-Venous NO GROWTH AFTER 48 HOURS Lab Studies 04/04/18 04/04/18 04/04/18 Range/Units 11:58 06:39 06:39 WBC 47.0 H* (4.8-10.8) K/uL RBC 2.66 L (3.80-5.20) Mil/uL Hgb 6.8 L (11.0-16.0) g/dL Hct 20.5 L (34.0-47.0) % MCV 77.1 L (81.0-99.0) fL MCH 25.5 L (27.0-31.0) pg MCHC 33.0 (33.0-37.0) g/dL RDW 27.5 H (11.5-14.5) % Plt Count 85 L D (130-400) K/uL MPV 8.5 (7.2-11.7) fL Neut % (Auto) 95.4 H (50.0-75.0) % Lymph % (Auto) 2.0 L (20.0-40.0) % Crook % (Auto) 2.5 (0.0-10.0) % Eos % (Auto) 0.1 (0.0-4.0) % Baso % (Auto) 0.0 (0.0-2.0) % Neut # (Auto) 44.8 H (1.8-7.0) K/uL Lymph # (Auto) 1.0 (1.0-4.3) K/uL Crook # (Auto) 1.2 H (0.0-0.8) K/uL Eos # (Auto) 0.1 (0.0-0.7) K/uL Baso # (Auto) 0.0 (0.0-0.2) K/uL Neutrophils % (Manual) 94 H (50-75) % Band Neutrophils % 2 (0-2) % Lymphocytes % (Manual) 4 L (20-40) % Monocytes % (Manual) TEST NOT PERFORMED Toxic Granulation Present Platelet Estimate Decreased L (NORMAL) Hypochromasia (manual) Moderate Anisocytosis (manual) Marked Puncture Site pCO2 (35-45) mm/Hg pO2 (80-100) mm/Hg HCO3 (21-28) mmol/L ABG pH (7.35-7.45) ABG Total CO2 (22-28) mmol/L ABG O2 Saturation (95-98) % ABG Base Excess (-2.0-3.0) mmol/L ABG Hemoglobin (11.7-17.4) g/dL ABG Carboxyhemoglobin (0.5-1.5) % POC ABG HHb (Measured) (0.0-5.0) % ABG Methemoglobin (0.0-3.0) % Jann Test A-a O2 Difference mm/Hg Respiratory Index Hgb O2 Saturation (95.0-98.0) % Vent Mode Mechanical Rate FiO2 % Tidal Volume PEEP Sodium 136 (132-148) mmol/L Potassium 4.2 (3.6-5.2) mmol/L Chloride 98 (98-107) mmol/L Carbon Dioxide 21 L (22-30) mmol/L Anion Gap 21 H (10-20) BUN 55 H (7-17) mg/dL Creatinine 3.0 H (0.7-1.2) mg/dL Est GFR ( Amer) 20 Est GFR (Non-Af Amer) 16 POC Glucose (mg/dL) 182 H (65-110) mg/dL Random Glucose 110 H (65-105) mg/dL Calcium 7.1 L (8.6-10.4) mg/dl Phosphorus 6.4 H (2.5-4.5) mg/dL Magnesium 1.8 (1.6-2.3) mg/dL Total Bilirubin 0.4 (0.2-1.3) mg/dL AST 51 H D (14-36) U/L ALT 61 H D (9-52) U/L Alkaline Phosphatase 136 H (38-126) U/L Total Protein 4.1 L (6.3-8.3) g/dL Total Protein (PEP) (6.1-8.1) g/dL Albumin 1.9 L (3.5-5.0) g/dL Albumin (PEP) (3.8-4.8) g/dL Globulin 2.2 (2.2-3.9) gm/dL Albumin/Globulin Ratio 0.9 L (1.0-2.1) Prljq-6-Zglirkakv (0.2-0.3) g/dL Qzqdb-0-Vqhmyarla (0.5-0.9) g/dL Exgh-6-Snbizasa (0.4-0.6) g/dL Tnmx-9-Skrdclum (0.2-0.5) g/dL Gamma Globulins (0.8-1.7) g/dL Abnorm Protein Band 1 Abnorm Protein Band 2 Abnorm Protein Band 3 Calcium (PTH Intact) (8.6-10.4) mg/dL PTH w/Ion &Tot Calcium (14-64) pg/mL Urine Chloride (32-290) mmol/L CROW & SPEP Interp Serum Immunofixation (Not Detected) Blood Type Antibody Screen 04/04/18 04/04/18 04/03/18 Range/Units 06:12 05:20 23:23 WBC (4.8-10.8) K/uL RBC (3.80-5.20) Mil/uL Hgb (11.0-16.0) g/dL Hct (34.0-47.0) % MCV (81.0-99.0) fL MCH (27.0-31.0) pg MCHC (33.0-37.0) g/dL RDW (11.5-14.5) % Plt Count (130-400) K/uL MPV (7.2-11.7) fL Neut % (Auto) (50.0-75.0) % Lymph % (Auto) (20.0-40.0) % Crook % (Auto) (0.0-10.0) % Eos % (Auto) (0.0-4.0) % Baso % (Auto) (0.0-2.0) % Neut # (Auto) (1.8-7.0) K/uL Lymph # (Auto) (1.0-4.3) K/uL Crook # (Auto) (0.0-0.8) K/uL Eos # (Auto) (0.0-0.7) K/uL Baso # (Auto) (0.0-0.2) K/uL Neutrophils % (Manual) (50-75) % Band Neutrophils % (0-2) % Lymphocytes % (Manual) (20-40) % Monocytes % (Manual) Toxic Granulation Platelet Estimate (NORMAL) Hypochromasia (manual) Anisocytosis (manual) Puncture Site Rr pCO2 24 L (35-45) mm/Hg pO2 188 H (80-100) mm/Hg HCO3 24.6 (21-28) mmol/L ABG pH 7.56 H (7.35-7.45) ABG Total CO2 22.2 (22-28) mmol/L ABG O2 Saturation 98.4 H (95-98) % ABG Base Excess -0.4 (-2.0-3.0) mmol/L ABG Hemoglobin 7.1 L (11.7-17.4) g/dL ABG Carboxyhemoglobin 0.9 (0.5-1.5) % POC ABG HHb (Measured) 1.6 (0.0-5.0) % ABG Methemoglobin 1.3 (0.0-3.0) % Jann Test Pos A-a O2 Difference 67.0 mm/Hg Respiratory Index 0.4 Hgb O2 Saturation 96.3 (95.0-98.0) % Vent Mode Prvc Mechanical Rate 16 FiO2 40.0 % Tidal Volume 450 PEEP 5 Sodium (132-148) mmol/L Potassium (3.6-5.2) mmol/L Chloride (98-107) mmol/L Carbon Dioxide (22-30) mmol/L Anion Gap (10-20) BUN (7-17) mg/dL Creatinine (0.7-1.2) mg/dL Est GFR ( Amer) Est GFR (Non-Af Amer) POC Glucose (mg/dL) 141 H 180 H (65-110) mg/dL Random Glucose (65-105) mg/dL Calcium (8.6-10.4) mg/dl Phosphorus (2.5-4.5) mg/dL Magnesium (1.6-2.3) mg/dL Total Bilirubin (0.2-1.3) mg/dL AST (14-36) U/L ALT (9-52) U/L Alkaline Phosphatase (38-126) U/L Total Protein (6.3-8.3) g/dL Total Protein (PEP) (6.1-8.1) g/dL Albumin (3.5-5.0) g/dL Albumin (PEP) (3.8-4.8) g/dL Globulin (2.2-3.9) gm/dL Albumin/Globulin Ratio (1.0-2.1) Qehke-3-Qhclchegl (0.2-0.3) g/dL Ofvzb-1-Fvzfctwsd (0.5-0.9) g/dL Vted-3-Wzygbyar (0.4-0.6) g/dL Pfkt-9-Jqlisjoy (0.2-0.5) g/dL Gamma Globulins (0.8-1.7) g/dL Abnorm Protein Band 1 Abnorm Protein Band 2 Abnorm Protein Band 3 Calcium (PTH Intact) (8.6-10.4) mg/dL PTH w/Ion &Tot Calcium (14-64) pg/mL Urine Chloride (32-290) mmol/L CROW & SPEP Interp Serum Immunofixation (Not Detected) Blood Type Antibody Screen 04/03/18 04/02/18 04/02/18 Range/Units 17:39 21:17 08:41 WBC (4.8-10.8) K/uL RBC (3.80-5.20) Mil/uL Hgb (11.0-16.0) g/dL Hct (34.0-47.0) % MCV (81.0-99.0) fL MCH (27.0-31.0) pg MCHC (33.0-37.0) g/dL RDW (11.5-14.5) % Plt Count (130-400) K/uL MPV (7.2-11.7) fL Neut % (Auto) (50.0-75.0) % Lymph % (Auto) (20.0-40.0) % Crook % (Auto) (0.0-10.0) % Eos % (Auto) (0.0-4.0) % Baso % (Auto) (0.0-2.0) % Neut # (Auto) (1.8-7.0) K/uL Lymph # (Auto) (1.0-4.3) K/uL Crook # (Auto) (0.0-0.8) K/uL Eos # (Auto) (0.0-0.7) K/uL Baso # (Auto) (0.0-0.2) K/uL Neutrophils % (Manual) (50-75) % Band Neutrophils % (0-2) % Lymphocytes % (Manual) (20-40) % Monocytes % (Manual) Toxic Granulation Platelet Estimate (NORMAL) Hypochromasia (manual) Anisocytosis (manual) Puncture Site pCO2 (35-45) mm/Hg pO2 (80-100) mm/Hg HCO3 (21-28) mmol/L ABG pH (7.35-7.45) ABG Total CO2 (22-28) mmol/L ABG O2 Saturation (95-98) % ABG Base Excess (-2.0-3.0) mmol/L ABG Hemoglobin (11.7-17.4) g/dL ABG Carboxyhemoglobin (0.5-1.5) % POC ABG HHb (Measured) (0.0-5.0) % ABG Methemoglobin (0.0-3.0) % Jann Test A-a O2 Difference mm/Hg Respiratory Index Hgb O2 Saturation (95.0-98.0) % Vent Mode Mechanical Rate FiO2 % Tidal Volume PEEP Sodium (132-148) mmol/L Potassium (3.6-5.2) mmol/L Chloride (98-107) mmol/L Carbon Dioxide (22-30) mmol/L Anion Gap (10-20) BUN (7-17) mg/dL Creatinine (0.7-1.2) mg/dL Est GFR ( Amer) Est GFR (Non-Af Amer) POC Glucose (mg/dL) 173 H (65-110) mg/dL Random Glucose (65-105) mg/dL Calcium (8.6-10.4) mg/dl Phosphorus (2.5-4.5) mg/dL Magnesium (1.6-2.3) mg/dL Total Bilirubin (0.2-1.3) mg/dL AST (14-36) U/L ALT (9-52) U/L Alkaline Phosphatase (38-126) U/L Total Protein (6.3-8.3) g/dL Total Protein (PEP) 3.8 L (6.1-8.1) g/dL Albumin (3.5-5.0) g/dL Albumin (PEP) 1.7 L (3.8-4.8) g/dL Globulin (2.2-3.9) gm/dL Albumin/Globulin Ratio (1.0-2.1) Rfnsh-4-Vjgatvazw 0.5 H (0.2-0.3) g/dL Namwb-2-Rjqmvoykp 0.7 (0.5-0.9) g/dL Ujjp-3-Nhiihdmr 0.1 L (0.4-0.6) g/dL Ppvd-2-Swkhzmsd 0.2 (0.2-0.5) g/dL Gamma Globulins 0.5 L (0.8-1.7) g/dL Abnorm Protein Band 1 TEST NOT PERFORMED Abnorm Protein Band 2 TEST NOT PERFORMED Abnorm Protein Band 3 TEST NOT PERFORMED Calcium (PTH Intact) 5.9 L (8.6-10.4) mg/dL PTH w/Ion &Tot Calcium 397 H (14-64) pg/mL Urine Chloride 73 (32-290) mmol/L CROW & SPEP Interp See note Serum Immunofixation Detected H (Not Detected) Blood Type Antibody Screen 04/01/18 Range/Units 17:51 WBC (4.8-10.8) K/uL RBC (3.80-5.20) Mil/uL Hgb (11.0-16.0) g/dL Hct (34.0-47.0) % MCV (81.0-99.0) fL MCH (27.0-31.0) pg MCHC (33.0-37.0) g/dL RDW (11.5-14.5) % Plt Count (130-400) K/uL MPV (7.2-11.7) fL Neut % (Auto) (50.0-75.0) % Lymph % (Auto) (20.0-40.0) % Crook % (Auto) (0.0-10.0) % Eos % (Auto) (0.0-4.0) % Baso % (Auto) (0.0-2.0) % Neut # (Auto) (1.8-7.0) K/uL Lymph # (Auto) (1.0-4.3) K/uL Crook # (Auto) (0.0-0.8) K/uL Eos # (Auto) (0.0-0.7) K/uL Baso # (Auto) (0.0-0.2) K/uL Neutrophils % (Manual) (50-75) % Band Neutrophils % (0-2) % Lymphocytes % (Manual) (20-40) % Monocytes % (Manual) Toxic Granulation Platelet Estimate (NORMAL) Hypochromasia (manual) Anisocytosis (manual) Puncture Site pCO2 (35-45) mm/Hg pO2 (80-100) mm/Hg HCO3 (21-28) mmol/L ABG pH (7.35-7.45) ABG Total CO2 (22-28) mmol/L ABG O2 Saturation (95-98) % ABG Base Excess (-2.0-3.0) mmol/L ABG Hemoglobin (11.7-17.4) g/dL ABG Carboxyhemoglobin (0.5-1.5) % POC ABG HHb (Measured) (0.0-5.0) % ABG Methemoglobin (0.0-3.0) % Jann Test A-a O2 Difference mm/Hg Respiratory Index Hgb O2 Saturation (95.0-98.0) % Vent Mode Mechanical Rate FiO2 % Tidal Volume PEEP Sodium (132-148) mmol/L Potassium (3.6-5.2) mmol/L Chloride (98-107) mmol/L Carbon Dioxide (22-30) mmol/L Anion Gap (10-20) BUN (7-17) mg/dL Creatinine (0.7-1.2) mg/dL Est GFR ( Amer) Est GFR (Non-Af Amer) POC Glucose (mg/dL) (65-110) mg/dL Random Glucose (65-105) mg/dL Calcium (8.6-10.4) mg/dl Phosphorus (2.5-4.5) mg/dL Magnesium (1.6-2.3) mg/dL Total Bilirubin (0.2-1.3) mg/dL AST (14-36) U/L ALT (9-52) U/L Alkaline Phosphatase (38-126) U/L Total Protein (6.3-8.3) g/dL Total Protein (PEP) (6.1-8.1) g/dL Albumin (3.5-5.0) g/dL Albumin (PEP) (3.8-4.8) g/dL Globulin (2.2-3.9) gm/dL Albumin/Globulin Ratio (1.0-2.1) Ovzfa-1-Xrjkurigz (0.2-0.3) g/dL Rabsq-2-Sfmvsfznv (0.5-0.9) g/dL Lkyj-8-Wmhrhjmr (0.4-0.6) g/dL Qwdj-3-Kzngtzbi (0.2-0.5) g/dL Gamma Globulins (0.8-1.7) g/dL Abnorm Protein Band 1 Abnorm Protein Band 2 Abnorm Protein Band 3 Calcium (PTH Intact) (8.6-10.4) mg/dL PTH w/Ion &Tot Calcium (14-64) pg/mL Urine Chloride (32-290) mmol/L CROW & SPEP Interp Serum Immunofixation (Not Detected) Blood Type O POSITIVE Antibody Screen Negative Laboratory Results - last 24 hr 04/01/18 04/02/18 04/02/18 17:51 08:41 21:17 WBC RBC Hgb Hct MCV MCH MCHC RDW Plt Count MPV Neut % (Auto) Lymph % (Auto) Crook % (Auto) Eos % (Auto) Baso % (Auto) Neut # (Auto) Lymph # (Auto) Crook # (Auto) Eos # (Auto) Baso # (Auto) Neutrophils % (Manual) Band Neutrophils % Lymphocytes % (Manual) Monocytes % (Manual) Toxic Granulation Platelet Estimate Hypochromasia (manual) Anisocytosis (manual) Puncture Site pCO2 pO2 HCO3 ABG pH ABG Total CO2 ABG O2 Saturation ABG Base Excess ABG Hemoglobin ABG Carboxyhemoglobin POC ABG HHb (Measured) ABG Methemoglobin Jann Test A-a O2 Difference Respiratory Index Hgb O2 Saturation Vent Mode Mechanical Rate FiO2 Tidal Volume PEEP Sodium Potassium Chloride Carbon Dioxide Anion Gap BUN Creatinine Est GFR ( Amer) Est GFR (Non-Af Amer) POC Glucose (mg/dL) Random Glucose Calcium Phosphorus Magnesium Total Bilirubin AST ALT Alkaline Phosphatase Total Protein Total Protein (PEP) 3.8 L Albumin Albumin (PEP) 1.7 L Globulin Albumin/Globulin Ratio Olwok-4-Yogdldwpd 0.5 H Avrym-0-Lxwwqgcfa 0.7 Gkvy-1-Gnxcvmlw 0.1 L Iubt-0-Nljyaetd 0.2 Gamma Globulins 0.5 L Abnorm Protein Band 1 TEST NOT PERFORMED Abnorm Protein Band 2 TEST NOT PERFORMED Abnorm Protein Band 3 TEST NOT PERFORMED Calcium (PTH Intact) 5.9 L PTH w/Ion &Tot Calcium 397 H Urine Chloride 73 CROW & SPEP Interp See note Serum Immunofixation Detected H Blood Type O POSITIVE Antibody Screen Negative 04/03/18 04/03/18 04/04/18 17:39 23:23 05:20 WBC RBC Hgb Hct MCV MCH MCHC RDW Plt Count MPV Neut % (Auto) Lymph % (Auto) Crook % (Auto) Eos % (Auto) Baso % (Auto) Neut # (Auto) Lymph # (Auto) Crook # (Auto) Eos # (Auto) Baso # (Auto) Neutrophils % (Manual) Band Neutrophils % Lymphocytes % (Manual) Monocytes % (Manual) Toxic Granulation Platelet Estimate Hypochromasia (manual) Anisocytosis (manual) Puncture Site Rr pCO2 24 L pO2 188 H HCO3 24.6 ABG pH 7.56 H ABG Total CO2 22.2 ABG O2 Saturation 98.4 H ABG Base Excess -0.4 ABG Hemoglobin 7.1 L ABG Carboxyhemoglobin 0.9 POC ABG HHb (Measured) 1.6 ABG Methemoglobin 1.3 Jann Test Pos A-a O2 Difference 67.0 Respiratory Index 0.4 Hgb O2 Saturation 96.3 Vent Mode Prvc Mechanical Rate 16 FiO2 40.0 Tidal Volume 450 PEEP 5 Sodium Potassium Chloride Carbon Dioxide Anion Gap BUN Creatinine Est GFR ( Amer) Est GFR (Non-Af Amer) POC Glucose (mg/dL) 173 H 180 H Random Glucose Calcium Phosphorus Magnesium Total Bilirubin AST ALT Alkaline Phosphatase Total Protein Total Protein (PEP) Albumin Albumin (PEP) Globulin Albumin/Globulin Ratio Jozya-3-Egudqidna Ecfdc-7-Etascusqo Yxhg-0-Pxtqcptp Dufg-0-Jrwbvirc Gamma Globulins Abnorm Protein Band 1 Abnorm Protein Band 2 Abnorm Protein Band 3 Calcium (PTH Intact) PTH w/Ion &Tot Calcium Urine Chloride CROW & SPEP Interp Serum Immunofixation Blood Type Antibody Screen 04/04/18 04/04/18 04/04/18 06:12 06:39 06:39 WBC 47.0 H* RBC 2.66 L Hgb 6.8 L Hct 20.5 L MCV 77.1 L MCH 25.5 L MCHC 33.0 RDW 27.5 H Plt Count 85 L D MPV 8.5 Neut % (Auto) 95.4 H Lymph % (Auto) 2.0 L Crook % (Auto) 2.5 Eos % (Auto) 0.1 Baso % (Auto) 0.0 Neut # (Auto) 44.8 H Lymph # (Auto) 1.0 Crook # (Auto) 1.2 H Eos # (Auto) 0.1 Baso # (Auto) 0.0 Neutrophils % (Manual) 94 H Band Neutrophils % 2 Lymphocytes % (Manual) 4 L Monocytes % (Manual) TEST NOT PERFORMED Toxic Granulation Present Platelet Estimate Decreased L Hypochromasia (manual) Moderate Anisocytosis (manual) Marked Puncture Site pCO2 pO2 HCO3 ABG pH ABG Total CO2 ABG O2 Saturation ABG Base Excess ABG Hemoglobin ABG Carboxyhemoglobin POC ABG HHb (Measured) ABG Methemoglobin Jann Test A-a O2 Difference Respiratory Index Hgb O2 Saturation Vent Mode Mechanical Rate FiO2 Tidal Volume PEEP Sodium 136 Potassium 4.2 Chloride 98 Carbon Dioxide 21 L Anion Gap 21 H BUN 55 H Creatinine 3.0 H Est GFR ( Amer) 20 Est GFR (Non-Af Amer) 16 POC Glucose (mg/dL) 141 H Random Glucose 110 H Calcium 7.1 L Phosphorus 6.4 H Magnesium 1.8 Total Bilirubin 0.4 AST 51 H D ALT 61 H D Alkaline Phosphatase 136 H Total Protein 4.1 L Total Protein (PEP) Albumin 1.9 L Albumin (PEP) Globulin 2.2 Albumin/Globulin Ratio 0.9 L Nbwos-3-Lhpryiysa Mulbj-0-Oddbdvtle Qocm-0-Ngxmrmry Rhqt-3-Iqgqcrdp Gamma Globulins Abnorm Protein Band 1 Abnorm Protein Band 2 Abnorm Protein Band 3 Calcium (PTH Intact) PTH w/Ion &Tot Calcium Urine Chloride CROW & SPEP Interp Serum Immunofixation Blood Type Antibody Screen 04/04/18 11:58 WBC RBC Hgb Hct MCV MCH MCHC RDW Plt Count MPV Neut % (Auto) Lymph % (Auto) Crook % (Auto) Eos % (Auto) Baso % (Auto) Neut # (Auto) Lymph # (Auto) Crook # (Auto) Eos # (Auto) Baso # (Auto) Neutrophils % (Manual) Band Neutrophils % Lymphocytes % (Manual) Monocytes % (Manual) Toxic Granulation Platelet Estimate Hypochromasia (manual) Anisocytosis (manual) Puncture Site pCO2 pO2 HCO3 ABG pH ABG Total CO2 ABG O2 Saturation ABG Base Excess ABG Hemoglobin ABG Carboxyhemoglobin POC ABG HHb (Measured) ABG Methemoglobin Jann Test A-a O2 Difference Respiratory Index Hgb O2 Saturation Vent Mode Mechanical Rate FiO2 Tidal Volume PEEP Sodium Potassium Chloride Carbon Dioxide Anion Gap BUN Creatinine Est GFR ( Amer) Est GFR (Non-Af Amer) POC Glucose (mg/dL) 182 H Random Glucose Calcium Phosphorus Magnesium Total Bilirubin AST ALT Alkaline Phosphatase Total Protein Total Protein (PEP) Albumin Albumin (PEP) Globulin Albumin/Globulin Ratio Wxwpq-4-Fjpxwjyum Lhjlb-5-Zpxogtbtu Qjrc-7-Zfbbddec Jhsr-5-Ziwlxygk Gamma Globulins Abnorm Protein Band 1 Abnorm Protein Band 2 Abnorm Protein Band 3 Calcium (PTH Intact) PTH w/Ion &Tot Calcium Urine Chloride CROW & SPEP Interp Serum Immunofixation Blood Type Antibody Screen Fingerstick Blood Sugar Results: 182 Review of Systems - Review of Systems Systems not reviewed;Unavailable: Intubated Critical Care Progress Note - Nutrition Nutrition: Nutrition Category Date Time Status NPO Diet [DIET] Diets 04/01/18 Breakfast Active Assessment/Plan - Assessment and Plan (Free Text) Assessment: 52 year old female with Unspecified medical history who presented to [facility] ICU from [facility] Emergency Room. [place] On Admission patient was found to have leukocytosis and significant skin excoriations, foul smelling ulcer in the right leg, multiple ecchymosis in the abdomen/groin area/lower extremity, necrotic tissue on lower extremity and bullae. Patiently found to be severely Anemic and was transfused a total of 5 PRBC's. Patient is edematous in the upper and lower extremities b/ l. Plan: Neuro GCS: 10T Sedation: None Cardio: ECHO (04/02): Shows Normal EF (55%) Pulm: CXR (04/04): Endotracheal and NG tube in place. Mild venous congestion. Bilateral hilar prominence. Tortuous ectatic aorta. Biapical pleural thickening with upper lobe granulomatous changes. ABG (04/04): pH-7.56, C02-24, 02-188, HCO3-24.6 Vent: PRVC 40%Fi02, 16 RR, 450 TV, 5 PEEP GI A: Elevated LFT's (Improving) Abd/Pelvis CT (04/02/18): Prominent gallbladder distention with cholelithiasis. Clinically correlate for potential cholecystitis. Possible ileus or early distal small bowel obstruction. Potential segmental colitis in various large-bowel segments though this is limited in diagnostic power due to collapse of the majority of the large bowel. Mild bilateral hydroureteronephrosis potentially on the basis of enlarged myomatous uterus. Potential infectious or inflammatory process affecting the uterus. Myomatous uterine changes also noted. Anasarca and trace ascites. OBGYN A: Uterine Mass TV US (Held) until patient is more stable. Renal A: LULA (Improving), Hypocalcemia, Hyperphosphetemia. Complement Studies per ID - PENDING [place] Lambda, Lupus, MicroAlbumin w/ Cr, Total Protein, PTH and CA Renal US (04/04): B/L mild hyronephrosis. small non-obstructing renal calculi in Right Kidney HD x 2 since admission HD tomorrow per Renal Vascular Surgery Consulted for Permacath placement. Scheduled for tomorrow. phos binders, nephrovite, vit D, iron supplements per Neuro urology consult for b/l hydronephrosis per Nephro Heme/Onc A: Iron Def. Anemia s/p 5 Units of PRBCs, thromboycytopenia (Acute). Hematology/Onc Consulted (Dr. Ospina), Recs Appreciated BCR/ABL1 GENE PCR - PENDING Hgb Today is 6.8 Will Transfuse 2 Units of PRBCs CA 125, CA19-9, CEA Ordered. DIC Workup to rule out Purpura Fulminans -Fibrinogen/Fibrin Split Products, Pt/ PTT, Retic Count, Haptoglobin, D- Dimer ID A: Leukocytosis (Improving), Purpura Fulminans vs Cholera? ID Consulted (Dr. Camarena, Recs appreciated) Lower Ext CT (04/02): Anasarca type pattern is favored over fasciitis of the bilateral lower extremities diffusely and is favored over fasciitis the fasciitis is still not excluded, a CT diagnosis is difficult to make without intravenous contrast. Necrotizing fasciitis is not identified however. Further clinical correlation is recommended. Blood Cultures (04/01 [place] ED): POSITIVE for Listeria Monocytogenes Blood Cultures (04/02): NEGATIVE Wound Cultures (04/02): Left and Right leg NEGATIVE (Prelim) ESR (04/03): WNL Hepatitis Panel - NEGATIVE Anitbiotics: Cont. Zyvox, Doxycycline, Clindamycin, Cont. Ampicillin Meropenem Added today per ID General Surgery/Vascular Surgery Consulted, Recs Appreciated. Stool for Vibrio Cholera per ID DIC Workup to rule out Purpura Fulminans -Fibrinogen/Fibrin Split Products, Pt/ PTT, Retic Count, Haptoglobin, D- Dimer Proph Protonix IV Daily Patient family is going back to [place] today. Will update with new findings as they asked Patient seen and discussed with ICU Attending Mik Huynh, PGY-1 <Yomi Mckeon S - Last Filed: 04/05/18 16:29> CCU Objective - Vital Signs / Intake & Output Vital Signs (Last 4 hours): Vital Signs Pulse Resp BP Pulse Ox 04/05/18 14:00 97 H 20 100 04/05/18 13:57 89 20 115/75 100 04/05/18 13:00 98 H 19 99 04/05/18 12:57 94 H 19 118/70 99 Intake and Output (Last 8hrs): Intake & Output 04/05/18 04/05/18 04/05/18 06:59 14:59 22:59 Intake Total 656.6 1040 Balance 656.6 1040 Weight 125 lb 8 oz Intake: IV 50 300 Intake, IV Amount 571.6 740 Right Femoral 21.6 740 right fem 550 Oral 0 Tube Feeding 35 Other: # Voids Urine, Voided 0 # Bowel Movements 0 - Medications Active Medications: Active Medications Generic Name Dose Route Start Last Admin Trade Name Freq PRN Reason Stop Dose Admin Albumin Human 12.5 gm 04/01/18 22:30 04/05/18 09:00 Albumin Human 25% (12.5 Gm/50 Ml) IV 12.5 gm Q12 NOLAN Administration Albuterol/Ipratropium 3 ml 04/03/18 09:30 04/03/18 13:37 Duoneb 3 Mg/0.5 Mg (3 Ml) Ud INH 3 ml RQ6 PRN Administration Shortness of Breath Ascorbic Acid 500 mg 04/02/18 10:00 04/05/18 10:10 Vitamin C 500 Mg Tab PO Not Given BID NOLAN Calcium Acetate 1,334 mg 04/05/18 09:32 04/05/18 12:25 Phoslo PO Not Given TIDCC NOLAN Ergocalciferol 1 cap 04/04/18 10:45 04/04/18 12:11 Drisdol 50,000 Intl Units Cap PO 1 cap Q7D NOLAN Administration Ferrous Gluconate 324 mg 04/04/18 14:00 04/05/18 14:04 Fergon PO Not Given TID NOLAN Heparin Sodium (Porcine) 5,000 units 04/02/18 22:00 04/03/18 21:18 Heparin SC 5,000 units Q12 NOLAN Administration Linezolid 600 mg in 300 mls @ 200 mls/hr 04/01/18 22:00 04/05/18 10:07 Zyvox 600mg/300ml D5w IVPB 200 mls/hr Q12 NOLAN Administration Protocol Doxycycline Hyclate 100 mg/ 100 mls @ 100 mls/hr 04/02/18 13:00 04/05/18 12: 27 Sodium Chloride IVPB 100 mls/hr Q12H NOLAN Administration Protocol Dexmedetomidine HCl 200 mcg/ 50 mls @ 2.7 mls/hr 04/03/18 09:45 04/05/18 05: 00 Sodium Chloride IV Infused TITR NOLAN Titration Protocol 0.2 MCG/KG/HR Ampicillin 2 gm/ Sodium 100 mls @ 50 mls/hr 04/03/18 19:00 04/05/18 06:01 Chloride IVPB 50 mls/hr Q12H NOLAN Administration Protocol Dextrose 1,000 mls @ 40 mls/hr 04/05/18 08:00 04/05/18 08:00 Dextrose 10% In Water IV 40 mls/hr .Q24H NOLAN Administration Lorazepam 2 mg 04/01/18 22:32 04/01/18 22:46 Ativan IVP 2 mg Q6H PRN Administration Anxiety Multivitamins/Vitamin C 5 ml 04/03/18 10:15 04/05/18 10:09 Multi-Delyn Liquid PO Not Given DAILY NOLAN Pantoprazole Sodium 40 mg 04/02/18 10:00 04/05/18 10:08 Protonix Inj IVP 40 mg DAILY NOLAN Administration - Patient Studies Lab Studies: Microbiology Studies 04/03/18 20:22 Gram Stain - Final Leg - Left Wound Culture - Preliminary No growth. 04/03/18 19:30 Gram Stain - Final Leg - Right Wound Culture - Preliminary No growth. 04/02/18 08:53 Blood Culture - Preliminary Blood-Venous NO GROWTH AFTER 3 DAYS 04/02/18 08:53 Blood Culture - Preliminary Blood-Venous NO GROWTH AFTER 3 DAYS Lab Studies 04/05/18 04/05/18 04/05/18 Range/Units 11:33 06:15 06:15 WBC (4.8-10.8) K/uL RBC (3.80-5.20) Mil/uL Hgb (11.0-16.0) g/dL Hct (34.0-47.0) % MCV (81.0-99.0) fL MCH (27.0-31.0) pg MCHC (33.0-37.0) g/dL RDW (11.5-14.5) % Plt Count (130-400) K/uL MPV (7.2-11.7) fL Neut % (Auto) (50.0-75.0) % Lymph % (Auto) (20.0-40.0) % Crook % (Auto) (0.0-10.0) % Eos % (Auto) (0.0-4.0) % Baso % (Auto) (0.0-2.0) % Neut # (Auto) (1.8-7.0) K/uL Lymph # (Auto) (1.0-4.3) K/uL [place] # (Auto) (0.0-0.8) K/uL Eos # (Auto) (0.0-0.7) K/uL Baso # (Auto) (0.0-0.2) K/uL Neutrophils % (Manual) (50-75) % Band Neutrophils % (0-2) % Lymphocytes % (Manual) (20-40) % Monocytes % (Manual) (0-10) % Platelet Estimate (NORMAL) Hypochromasia (manual) Anisocytosis (manual) Retic Count (0.5-1.5) % Haptoglobin 346.1 H (30.0-200.0) mg/dL PT 11.2 (9.7-12.2) SECONDS INR 1.0 APTT 29 (21-34) SECONDS Fibrinogen 289 (200-400) mg/dL Fibrin Degrad Products Cancelled Fibrin Degrad Prod, Qt Cancelled D-Dimer, Quantitative > 5250 H (0-243) ng/mlDDU Puncture Site pCO2 (35-45) mm/Hg pO2 (80-100) mm/Hg HCO3 (21-28) mmol/L ABG pH (7.35-7.45) ABG Total CO2 (22-28) mmol/L ABG O2 Saturation (95-98) % ABG Base Excess (-2.0-3.0) mmol/L ABG Hemoglobin (11.7-17.4) g/dL ABG Carboxyhemoglobin (0.5-1.5) % POC ABG HHb (Measured) (0.0-5.0) % ABG Methemoglobin (0.0-3.0) % Jann Test A-a O2 Difference mm/Hg Respiratory Index Hgb O2 Saturation (95.0-98.0) % Vent Mode Mechanical Rate FiO2 % Tidal Volume PEEP Sodium (132-148) mmol/L Potassium (3.6-5.2) mmol/L Chloride (98-107) mmol/L Carbon Dioxide (22-30) mmol/L Anion Gap (10-20) BUN (7-17) mg/dL Creatinine (0.7-1.2) mg/dL Est GFR ( Amer) Est GFR (Non-Af Amer) POC Glucose (mg/dL) 115 H (65-110) mg/dL Random Glucose (65-105) mg/dL Calcium (8.6-10.4) mg/dl Phosphorus (2.5-4.5) mg/dL Magnesium (1.6-2.3) mg/dL Total Bilirubin (0.2-1.3) mg/dL AST (14-36) U/L ALT (9-52) U/L Alkaline Phosphatase (38-126) U/L Total Protein (6.3-8.3) g/dL Albumin (3.5-5.0) g/dL Globulin (2.2-3.9) gm/dL Albumin/Globulin Ratio (1.0-2.1) Carcinoembryonic Ag (0-3.0) ng/mL CA 19-9 Antigen (0-37) U/mL CA 125 Antigen (0-35) U/mL Beta HCG, Quant mIU/ML Complement C3 (88.0-165.0) mg/dL Complement C4 (14.0-44.0) mg/dL Tot Complement (CH50) (31-60) U/mL Tot [place]/Lambda Ratio (1.29-2.55) [place] Light Chain Anal (176-443) mg/dL Lambda Light Chain Anal (91-240) mg/dL 04/05/18 04/05/18 04/05/18 Range/Units 06:15 06:15 06:14 WBC 47.8 H* (4.8-10.8) K/uL RBC 3.60 L (3.80-5.20) Mil/uL Hgb 9.6 L D (11.0-16.0) g/dL Hct 28.5 L (34.0-47.0) % MCV 79.3 L D (81.0-99.0) fL MCH 26.8 L (27.0-31.0) pg MCHC 33.8 (33.0-37.0) g/dL RDW 23.3 H (11.5-14.5) % Plt Count 106 L D (130-400) K/uL MPV 8.8 (7.2-11.7) fL Neut % (Auto) 95.3 H (50.0-75.0) % Lymph % (Auto) 2.5 L (20.0-40.0) % Crook % (Auto) 2.0 (0.0-10.0) % Eos % (Auto) 0.0 (0.0-4.0) % Baso % (Auto) 0.2 (0.0-2.0) % Neut # (Auto) 45.6 H (1.8-7.0) K/uL Lymph # (Auto) 1.2 (1.0-4.3) K/uL [place] # (Auto) 1.0 H (0.0-0.8) K/uL Eos # (Auto) 0.0 (0.0-0.7) K/uL Baso # (Auto) 0.1 (0.0-0.2) K/uL Neutrophils % (Manual) 93 H (50-75) % Band Neutrophils % 2 (0-2) % Lymphocytes % (Manual) 3 L (20-40) % Monocytes % (Manual) 2 (0-10) % Platelet Estimate Slightly decreased L (NORMAL) Hypochromasia (manual) Slight Anisocytosis (manual) Moderate Retic Count 1.4 (0.5-1.5) % Haptoglobin (30.0-200.0) mg/dL PT (9.7-12.2) SECONDS INR APTT (21-34) SECONDS Fibrinogen (200-400) mg/dL Fibrin Degrad Products Fibrin Degrad Prod, Qt D-Dimer, Quantitative (0-243) ng/mlDDU Puncture Site pCO2 (35-45) mm/Hg pO2 (80-100) mm/Hg HCO3 (21-28) mmol/L ABG pH (7.35-7.45) ABG Total CO2 (22-28) mmol/L ABG O2 Saturation (95-98) % ABG Base Excess (-2.0-3.0) mmol/L ABG Hemoglobin (11.7-17.4) g/dL ABG Carboxyhemoglobin (0.5-1.5) % POC ABG HHb (Measured) (0.0-5.0) % ABG Methemoglobin (0.0-3.0) % Jann Test A-a O2 Difference mm/Hg Respiratory Index Hgb O2 Saturation (95.0-98.0) % Vent Mode Mechanical Rate FiO2 % Tidal Volume PEEP Sodium 133 (132-148) mmol/L Potassium 4.8 (3.6-5.2) mmol/L Chloride 97 L (98-107) mmol/L Carbon Dioxide 18 L (22-30) mmol/L Anion Gap 23 H (10-20) BUN 73 H (7-17) mg/dL Creatinine 3.0 H (0.7-1.2) mg/dL Est GFR ( Amer) 20 Est GFR (Non-Af Amer) 16 POC Glucose (mg/dL) (65-110) mg/dL Random Glucose 76 (65-105) mg/dL Calcium 7.7 L (8.6-10.4) mg/dl Phosphorus 6.7 H (2.5-4.5) mg/dL Magnesium 1.9 (1.6-2.3) mg/dL Total Bilirubin 0.7 (0.2-1.3) mg/dL AST 50 H (14-36) U/L ALT 69 H (9-52) U/L Alkaline Phosphatase 173 H D (38-126) U/L Total Protein 4.4 L (6.3-8.3) g/dL Albumin 2.0 L (3.5-5.0) g/dL Globulin 2.3 (2.2-3.9) gm/dL Albumin/Globulin Ratio 0.9 L (1.0-2.1) Carcinoembryonic Ag 5.7 H (0-3.0) ng/mL CA 19-9 Antigen 286 H (0-37) U/mL CA 125 Antigen 90.6 H (0-35) U/mL Beta HCG, Quant < 2.39 mIU/ML Complement C3 78.0 L (88.0-165.0) mg/dL Complement C4 18.1 (14.0-44.0) mg/dL Tot Complement (CH50) (31-60) U/mL Tot [place]/Lambda Ratio (1.29-2.55) [place] Light Chain Anal (176-443) mg/dL Lambda Light Chain Anal (91-240) mg/dL 04/05/18 04/05/18 04/04/18 Range/Units 04:29 04:25 23:53 WBC (4.8-10.8) K/uL RBC (3.80-5.20) Mil/uL Hgb (11.0-16.0) g/dL Hct (34.0-47.0) % MCV (81.0-99.0) fL MCH (27.0-31.0) pg MCHC (33.0-37.0) g/dL RDW (11.5-14.5) % Plt Count (130-400) K/uL MPV (7.2-11.7) fL Neut % (Auto) (50.0-75.0) % Lymph % (Auto) (20.0-40.0) % [place] % (Auto) (0.0-10.0) % Eos % (Auto) (0.0-4.0) % Baso % (Auto) (0.0-2.0) % Neut # (Auto) (1.8-7.0) K/uL Lymph # (Auto) (1.0-4.3) K/uL [place] # (Auto) (0.0-0.8) K/uL Eos # (Auto) (0.0-0.7) K/uL Baso # (Auto) (0.0-0.2) K/uL Neutrophils % (Manual) (50-75) % Band Neutrophils % (0-2) % Lymphocytes % (Manual) (20-40) % Monocytes % (Manual) (0-10) % Platelet Estimate (NORMAL) Hypochromasia (manual) Anisocytosis (manual) Retic Count (0.5-1.5) % Haptoglobin (30.0-200.0) mg/dL PT (9.7-12.2) SECONDS INR APTT (21-34) SECONDS Fibrinogen (200-400) mg/dL Fibrin Degrad Products Fibrin Degrad Prod, Qt D-Dimer, Quantitative (0-243) ng/mlDDU Puncture Site Rb pCO2 26 L (35-45) mm/Hg pO2 157 H (80-100) mm/Hg HCO3 23.9 (21-28) mmol/L ABG pH 7.51 H (7.35-7.45) ABG Total CO2 21.5 L (22-28) mmol/L ABG O2 Saturation 98.5 H (95-98) % ABG Base Excess -1.3 (-2.0-3.0) mmol/L ABG Hemoglobin 10.7 L (11.7-17.4) g/dL ABG Carboxyhemoglobin 1.1 (0.5-1.5) % POC ABG HHb (Measured) 1.5 (0.0-5.0) % ABG Methemoglobin 1.3 (0.0-3.0) % Jann Test Na A-a O2 Difference 96.0 mm/Hg Respiratory Index 0.6 Hgb O2 Saturation 96.0 (95.0-98.0) % Vent Mode Prvc Mechanical Rate 16 FiO2 40.0 % Tidal Volume 450 PEEP 5 Sodium (132-148) mmol/L Potassium (3.6-5.2) mmol/L Chloride (98-107) mmol/L Carbon Dioxide (22-30) mmol/L Anion Gap (10-20) BUN (7-17) mg/dL Creatinine (0.7-1.2) mg/dL Est GFR ( Amer) Est GFR (Non-Af Amer) POC Glucose (mg/dL) 90 110 (65-110) mg/dL Random Glucose (65-105) mg/dL Calcium (8.6-10.4) mg/dl Phosphorus (2.5-4.5) mg/dL Magnesium (1.6-2.3) mg/dL Total Bilirubin (0.2-1.3) mg/dL AST (14-36) U/L ALT (9-52) U/L Alkaline Phosphatase (38-126) U/L Total Protein (6.3-8.3) g/dL Albumin (3.5-5.0) g/dL Globulin (2.2-3.9) gm/dL Albumin/Globulin Ratio (1.0-2.1) Carcinoembryonic Ag (0-3.0) ng/mL CA 19-9 Antigen (0-37) U/mL CA 125 Antigen (0-35) U/mL Beta HCG, Quant mIU/ML Complement C3 (88.0-165.0) mg/dL Complement C4 (14.0-44.0) mg/dL Tot Complement (CH50) (31-60) U/mL Tot [place]/Lambda Ratio (1.29-2.55) [place] Light Chain Anal (176-443) mg/dL Lambda Light Chain Anal (91-240) mg/dL 04/03/18 04/02/18 Range/Units 06:33 08:41 WBC (4.8-10.8) K/uL RBC (3.80-5.20) Mil/uL Hgb (11.0-16.0) g/dL Hct (34.0-47.0) % MCV (81.0-99.0) fL MCH (27.0-31.0) pg MCHC (33.0-37.0) g/dL RDW (11.5-14.5) % Plt Count (130-400) K/uL MPV (7.2-11.7) fL Neut % (Auto) (50.0-75.0) % Lymph % (Auto) (20.0-40.0) % [place] % (Auto) (0.0-10.0) % Eos % (Auto) (0.0-4.0) % Baso % (Auto) (0.0-2.0) % Neut # (Auto) (1.8-7.0) K/uL Lymph # (Auto) (1.0-4.3) K/uL [place] # (Auto) (0.0-0.8) K/uL Eos # (Auto) (0.0-0.7) K/uL Baso # (Auto) (0.0-0.2) K/uL Neutrophils % (Manual) (50-75) % Band Neutrophils % (0-2) % Lymphocytes % (Manual) (20-40) % Monocytes % (Manual) (0-10) % Platelet Estimate (NORMAL) Hypochromasia (manual) Anisocytosis (manual) Retic Count (0.5-1.5) % Haptoglobin (30.0-200.0) mg/dL PT (9.7-12.2) SECONDS INR APTT (21-34) SECONDS Fibrinogen (200-400) mg/dL Fibrin Degrad Products Fibrin Degrad Prod, Qt D-Dimer, Quantitative (0-243) ng/mlDDU Puncture Site pCO2 (35-45) mm/Hg pO2 (80-100) mm/Hg HCO3 (21-28) mmol/L ABG pH (7.35-7.45) ABG Total CO2 (22-28) mmol/L ABG O2 Saturation (95-98) % ABG Base Excess (-2.0-3.0) mmol/L ABG Hemoglobin (11.7-17.4) g/dL ABG Carboxyhemoglobin (0.5-1.5) % POC ABG HHb (Measured) (0.0-5.0) % ABG Methemoglobin (0.0-3.0) % Jann Test A-a O2 Difference mm/Hg Respiratory Index Hgb O2 Saturation (95.0-98.0) % Vent Mode Mechanical Rate FiO2 % Tidal Volume PEEP Sodium (132-148) mmol/L Potassium (3.6-5.2) mmol/L Chloride (98-107) mmol/L Carbon Dioxide (22-30) mmol/L Anion Gap (10-20) BUN (7-17) mg/dL Creatinine (0.7-1.2) mg/dL Est GFR ( Amer) Est GFR (Non-Af Amer) POC Glucose (mg/dL) (65-110) mg/dL Random Glucose (65-105) mg/dL Calcium (8.6-10.4) mg/dl Phosphorus (2.5-4.5) mg/dL Magnesium (1.6-2.3) mg/dL Total Bilirubin (0.2-1.3) mg/dL AST (14-36) U/L ALT (9-52) U/L Alkaline Phosphatase (38-126) U/L Total Protein (6.3-8.3) g/dL Albumin (3.5-5.0) g/dL Globulin (2.2-3.9) gm/dL Albumin/Globulin Ratio (1.0-2.1) Carcinoembryonic Ag (0-3.0) ng/mL CA 19-9 Antigen (0-37) U/mL CA 125 Antigen (0-35) U/mL Beta HCG, Quant mIU/ML Complement C3 (88.0-165.0) mg/dL Complement C4 (14.0-44.0) mg/dL Tot Complement (CH50) 43 (31-60) U/mL Tot [place]/Lambda Ratio 1.46 (1.29-2.55) [place] Light Chain Anal 137 L (176-443) mg/dL Lambda Light Chain Anal 94 (91-240) mg/dL Laboratory Results - last 24 hr 04/02/18 04/03/18 04/04/18 08:41 06:33 23:53 WBC RBC Hgb Hct MCV MCH MCHC RDW Plt Count MPV Neut % (Auto) Lymph % (Auto) [place] % (Auto) Eos % (Auto) Baso % (Auto) Neut # (Auto) Lymph # (Auto) [place] # (Auto) Eos # (Auto) Baso # (Auto) Neutrophils % (Manual) Band Neutrophils % Lymphocytes % (Manual) Monocytes % (Manual) Platelet Estimate Hypochromasia (manual) Anisocytosis (manual) Retic Count Haptoglobin PT INR APTT Fibrinogen Fibrin Degrad Products Fibrin Degrad Prod, Qt D-Dimer, Quantitative Puncture Site pCO2 pO2 HCO3 ABG pH ABG Total CO2 ABG O2 Saturation ABG Base Excess ABG Hemoglobin ABG Carboxyhemoglobin POC ABG HHb (Measured) ABG Methemoglobin Jann Test A-a O2 Difference Respiratory Index Hgb O2 Saturation Vent Mode Mechanical Rate FiO2 Tidal Volume PEEP Sodium Potassium Chloride Carbon Dioxide Anion Gap BUN Creatinine Est GFR ( Amer) Est GFR (Non-Af Amer) POC Glucose (mg/dL) 110 Random Glucose Calcium Phosphorus Magnesium Total Bilirubin AST ALT Alkaline Phosphatase Total Protein Albumin Globulin Albumin/Globulin Ratio Carcinoembryonic Ag CA 19-9 Antigen CA 125 Antigen Beta HCG, Quant Complement C3 Complement C4 Tot Complement (CH50) 43 Tot [place]/Lambda Ratio 1.46 [place] Light Chain Anal 137 L Lambda Light Chain Anal 94 04/05/18 04/05/18 04/05/18 04:25 04:29 06:14 WBC 47.8 H* RBC 3.60 L Hgb 9.6 L D Hct 28.5 L MCV 79.3 L D MCH 26.8 L MCHC 33.8 RDW 23.3 H Plt Count 106 L D MPV 8.8 Neut % (Auto) 95.3 H Lymph % (Auto) 2.5 L [place] % (Auto) 2.0 Eos % (Auto) 0.0 Baso % (Auto) 0.2 Neut # (Auto) 45.6 H Lymph # (Auto) 1.2 [place] # (Auto) 1.0 H Eos # (Auto) 0.0 Baso # (Auto) 0.1 Neutrophils % (Manual) 93 H Band Neutrophils % 2 Lymphocytes % (Manual) 3 L Monocytes % (Manual) 2 Platelet Estimate Slightly decreased L Hypochromasia (manual) Slight Anisocytosis (manual) Moderate Retic Count 1.4 Haptoglobin PT INR APTT Fibrinogen Fibrin Degrad Products Fibrin Degrad Prod, Qt D-Dimer, Quantitative Puncture Site Rb pCO2 26 L pO2 157 H HCO3 23.9 ABG pH 7.51 H ABG Total CO2 21.5 L ABG O2 Saturation 98.5 H ABG Base Excess -1.3 ABG Hemoglobin 10.7 L ABG Carboxyhemoglobin 1.1 POC ABG HHb (Measured) 1.5 ABG Methemoglobin 1.3 Jann Test Na A-a O2 Difference 96.0 Respiratory Index 0.6 Hgb O2 Saturation 96.0 Vent Mode Prvc Mechanical Rate 16 FiO2 40.0 Tidal Volume 450 PEEP 5 Sodium Potassium Chloride Carbon Dioxide Anion Gap BUN Creatinine Est GFR ( Amer) Est GFR (Non-Af Amer) POC Glucose (mg/dL) 90 Random Glucose Calcium Phosphorus Magnesium Total Bilirubin AST ALT Alkaline Phosphatase Total Protein Albumin Globulin Albumin/Globulin Ratio Carcinoembryonic Ag CA 19-9 Antigen CA 125 Antigen Beta HCG, Quant Complement C3 Complement C4 Tot Complement (CH50) Tot [place]/Lambda Ratio [place] Light Chain Anal Lambda Light Chain Anal 04/05/18 04/05/18 04/05/18 06:15 06:15 06:15 WBC RBC Hgb Hct MCV MCH MCHC RDW Plt Count MPV Neut % (Auto) Lymph % (Auto) [place] % (Auto) Eos % (Auto) Baso % (Auto) Neut # (Auto) Lymph # (Auto) [place] # (Auto) Eos # (Auto) Baso # (Auto) Neutrophils % (Manual) Band Neutrophils % Lymphocytes % (Manual) Monocytes % (Manual) Platelet Estimate Hypochromasia (manual) Anisocytosis (manual) Retic Count Haptoglobin PT 11.2 INR 1.0 APTT 29 Fibrinogen 289 Fibrin Degrad Products Cancelled Fibrin Degrad Prod, Qt Cancelled D-Dimer, Quantitative > 5250 H Puncture Site pCO2 pO2 HCO3 ABG pH ABG Total CO2 ABG O2 Saturation ABG Base Excess ABG Hemoglobin ABG Carboxyhemoglobin POC ABG HHb (Measured) ABG Methemoglobin Jann Test A-a O2 Difference Respiratory Index Hgb O2 Saturation Vent Mode Mechanical Rate FiO2 Tidal Volume PEEP Sodium 133 Potassium 4.8 Chloride 97 L Carbon Dioxide 18 L Anion Gap 23 H BUN 73 H Creatinine 3.0 H Est GFR ( Amer) 20 Est GFR (Non-Af Amer) 16 POC Glucose (mg/dL) Random Glucose 76 Calcium 7.7 L Phosphorus 6.7 H Magnesium 1.9 Total Bilirubin 0.7 AST 50 H ALT 69 H Alkaline Phosphatase 173 H D Total Protein 4.4 L Albumin 2.0 L Globulin 2.3 Albumin/Globulin Ratio 0.9 L Carcinoembryonic Ag 5.7 H CA 19-9 Antigen 286 H CA 125 Antigen 90.6 H Beta HCG, Quant < 2.39 Complement C3 78.0 L Complement C4 18.1 Tot Complement (CH50) Tot [place]/Lambda Ratio [place] Light Chain Anal Lambda Light Chain Anal 04/05/18 04/05/18 06:15 11:33 WBC RBC Hgb Hct MCV MCH MCHC RDW Plt Count MPV Neut % (Auto) Lymph % (Auto) [place] % (Auto) Eos % (Auto) Baso % (Auto) Neut # (Auto) Lymph # (Auto) [place] # (Auto) Eos # (Auto) Baso # (Auto) Neutrophils % (Manual) Band Neutrophils % Lymphocytes % (Manual) Monocytes % (Manual) Platelet Estimate Hypochromasia (manual) Anisocytosis (manual) Retic Count Haptoglobin 346.1 H PT INR APTT Fibrinogen Fibrin Degrad Products Fibrin Degrad Prod, Qt D-Dimer, Quantitative Puncture Site pCO2 pO2 HCO3 ABG pH ABG Total CO2 ABG O2 Saturation ABG Base Excess ABG Hemoglobin ABG Carboxyhemoglobin POC ABG HHb (Measured) ABG Methemoglobin Jann Test A-a O2 Difference Respiratory Index Hgb O2 Saturation Vent Mode Mechanical Rate FiO2 Tidal Volume PEEP Sodium Potassium Chloride Carbon Dioxide Anion Gap BUN Creatinine Est GFR ( Amer) Est GFR (Non-Af Amer) POC Glucose (mg/dL) 115 H Random Glucose Calcium Phosphorus Magnesium Total Bilirubin AST ALT Alkaline Phosphatase Total Protein Albumin Globulin Albumin/Globulin Ratio Carcinoembryonic Ag CA 19-9 Antigen CA 125 Antigen Beta HCG, Quant Complement C3 Complement C4 Tot Complement (CH50) Tot [place]/Lambda Ratio [place] Light Chain Anal Lambda Light Chain Anal Critical Care Progress Note - Nutrition Nutrition: Nutrition Category Date Time Status NPO Diet [DIET] Diets 04/05/18 Breakfast Active Attending/Attestation - Attestation I have personally seen and examined this patient.: Yes I have fully participated in the care of the patient.: Yes I have reviewed all pertinent clinical information: Yes Notes (Text): 04/05/18 16:26 patient seen and examined in the intensive care unit. 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
--- NOTE | 2018-04-04 12:59 | CARD ---
APPROVED REPORT EXAM: Two-dimensional and M-mode echocardiogram with Doppler and color Doppler. Other Information Quality : GoodRhythm : INDICATION Infection:Rule out subacute bacterial endocarditis 2D DIMENSIONS IVSd0.9 (0.7-1.1cm)LVDd4.6 (3.9-5.9cm) PWd1.3 (0.7-1.1cm)LVDs3.2 (2.5-4.0cm) FS (%) 31.2 %LVEF (%)55.0 (>50%) M-Mode DIMENSIONS Left Atrium (MM)4.44 (2.5-4.0cm)Aortic Root3.39 (2.2-3.7cm) Aortic Cusp Exc.2.08 (1.5-2.0cm) Mitral Valve MV E Vogrebll68.1cm/sMV A Gadylcom623.1cm/sE/A ratio0.8 TDI E/Lateral E'0.0E/Medial E'0.0 Tricuspid Valve TR Peak [id number]/sTR Peak Gr.[id number] LEFT VENTRICLE The left ventricle is normal size. There is borderline concentric left ventricular hypertrophy. The left ventricular function is normal. The left ventricular ejection fraction is within the normal range. There is normal LV segmental wall motion. The left ventricular diastolic function is normal. No left ventricle thrombus noted on this study. There is no ventricular septal defect visualized. There is no left ventricular aneurysm. There is no mass noted in the left ventricle. RIGHT VENTRICLE The right ventricle is normal size. There is normal right ventricular wall thickness. The right ventricular systolic function is normal. ATRIA The left atrium is mildly dilated. The right atrium size is normal. The interatrial septum is intact with no evidence for an atrial septal defect. AORTIC VALVE The aortic valve is thickened but opens well. No aortic regurgitation is present. There is no aortic valvular stenosis. There is no aortic valvular vegetation. MITRAL VALVE The mitral valve is mildly thickened but opens well. Mitral annular calcification is mild to moderate. There is no mitral valve stenosis. Mitral regurgitation is trace. TRICUSPID VALVE The tricuspid valve is normal in structure. There is no tricuspid valve regurgitation noted. PULMONIC VALVE The pulmonary valve is normal in structure. There is no pulmonic valvular regurgitation. GREAT VESSELS The aortic root is normal in size. The ascending aorta is normal in size. The pulmonary artery is normal. The IVC is normal in size and collapses >50% with inspiration. PERICARDIAL EFFUSION There is a trace loculated posterior pericardial effusion. Further Testing Further Testing : For further evaluation CHERYLE is recommended. if clinically suspected. <Conclusion> There is borderline concentric left ventricular hypertrophy. The left atrium is mildly dilated. The mitral valve is mildly thickened but opens well. Mitral annular calcification is mild to moderate. lvef is 55%.
--- NOTE | 2018-04-04 14:19 | CP.PCM.PN ---
Subjective - Date & Time of Evaluation Date of Evaluation: 04/04/18 Time of Evaluation: 02:15 - Subjective Subjective: dictated Objective - Vital Signs/Intake and Output Vital Signs (last 24 hours): Temp Pulse Resp BP Pulse Ox 98 F 73 78 H 115/70 100 04/04/18 13:57 04/04/18 14:00 04/04/18 14:00 04/04/18 14:00 04/04/18 14:00 Intake and Output: 04/04/18 04/04/18 06:59 18:59 Intake Total 1627.4 1248.9 Output Total 1200 Balance 427.4 1248.9 - Medications Medications: Current Medications Albumin Human (Albumin Human 25% (12.5 Gm/50 Ml)) 12.5 gm IV Q12 [facility] Last Admin: 04/04/18 10:07 Dose: 12.5 gm Albuterol/Ipratropium (Duoneb 3 Mg/0.5 Mg (3 Ml) Ud) 3 ml INH RQ6 PRN PRN Reason: Shortness of Breath Last Admin: 04/03/18 13:37 Dose: 3 ml Ascorbic Acid (Vitamin C 500 Mg Tab) 500 mg PO BID [facility] Last Admin: 04/04/18 10:08 Dose: 500 mg Calcium Acetate (Phoslo) 667 mg PO TIDCC [facility] Last Admin: 04/04/18 12:14 Dose: 667 mg Ergocalciferol (Drisdol 50,000 Intl Units Cap) 1 cap PO Q7D [facility] Last Admin: 04/04/18 12:11 Dose: 1 cap Ferrous Gluconate (Fergon) 324 mg PO TID [facility] Last Admin: 04/04/18 13:34 Dose: 324 mg Heparin Sodium (Porcine) (Heparin) 5,000 units SC Q12 [facility] Last Admin: 04/03/18 21:18 Dose: 5,000 units Linezolid (Zyvox 600mg/300ml D5w) 600 mg in 300 mls @ 200 mls/hr IVPB Q12 [facility] PRN Reason: Protocol Last Admin: 04/04/18 09:48 Dose: 200 mls/hr Doxycycline Hyclate 100 mg/ (Sodium Chloride) 100 mls @ 100 mls/hr IVPB Q12H [facility] PRN Reason: Protocol Last Admin: 04/04/18 12:15 Dose: 100 mls/hr Clindamycin Phosphate (Cleocin In Normal Saline) 600 mg in 50 mls @ 100 mls/hr IVPB Q8H [facility] PRN Reason: Protocol Last Admin: 04/04/18 12:10 Dose: 100 mls/hr Dexmedetomidine HCl 200 mcg/ (Sodium Chloride) 50 mls @ 2.7 mls/hr IV TITR [facility] ; 0.2 MCG/KG/HR PRN Reason: Protocol Last Admin: 04/04/18 06:22 Dose: 0.2 mcg/kg/hr, 2.7 mls/hr Ampicillin 2 gm/ Sodium (Chloride) 100 mls @ 50 mls/hr IVPB Q12H [facility] PRN Reason: Protocol Last Admin: 04/04/18 06:14 Dose: 50 mls/hr Meropenem 500 mg/ Sodium (Chloride) 100 mls @ 200 mls/hr IVPB Q24H [facility] PRN Reason: Protocol Last Admin: 04/04/18 09:47 Dose: 200 mls/hr Lorazepam (Ativan) 2 mg IVP Q6H PRN PRN Reason: Anxiety Last Admin: 04/01/18 22:46 Dose: 2 mg Multivitamins/Vitamin C (Multi-Delyn Liquid) 5 ml PO DAILY [facility] Last Admin: 04/04/18 10:10 Dose: 5 ml Pantoprazole Sodium (Protonix Inj) 40 mg IVP DAILY [facility] Last Admin: 04/04/18 10:08 Dose: 40 mg - Labs Labs: 04/04/18 06:39 04/04/18 06:39 PT 15.5 SECONDS (9.7-12.2) H 04/01/18 21:45 INR 1.4 04/01/18 21:45 APTT 32 SECONDS (21-34) 04/01/18 21:45
--- NOTE | 2018-04-04 21:22 | US ---
EXAM: US Pelvis Complete, Transabdominal EXAM DATE/TIME: Exam ordered 04/04/2018 7:33 AM CLINICAL HISTORY: 52 years old, female; Signs and symptoms; Mass, lump, or swelling; Uterus; Additional info: Assess mass TECHNIQUE: Real-time transabdominal pelvic ultrasound (complete) with image documentation. COMPARISON: US - RENAL 2018-04-03 18:32 FINDINGS: Uterus/cervix: The uterus measures at least 14.4 x 9.3 x 9 cm. The uterus is heterogeneous in echotexture. The endometrial stripe measures approximately 3 mm. Bright echoes are noted within the endometrial canal of the lower uterine segment suggesting the presence of air There is a intramural fibroid in the posterior uterine corpus measuring 3.2 x 2.5 x 2.8 cm. There is a calcified submucosal fibroid measuring 2.9 x 1.7 x 2.2 cm noted posteriorly. There is an anterior corpus fibroid intramural in location measuring 5 x 4.8 x 5.1 cm. Right ovary: The right ovary measures 2.4 x 2 x 2.1 cm. Blood flow seen in the right ovary on color Doppler examination. Left ovary: The left ovary measures 2.3 x 1.6 x 2.1 cm. Blood flow is seen in the left ovary on color Doppler examination. Free fluid: No free fluid. Bladder: The bladder is poorly distended. IMPRESSION: 1. Gas noted within the endometrial canal in the lower uterus and cervix. This can be iatrogenic. As indicated on the CT scan dated 04/02/2018, this can also be related to endometritis or necrotic tumor. 2. Uterine fibroids
--- NOTE | 2018-04-04 21:48 | CP.PCM.PN ---
Subjective - Date & Time of Evaluation Date of Evaluation: 04/04/18 Time of Evaluation: 18:00 - Subjective Subjective: Vented, awake and alert. Objective - Vital Signs/Intake and Output Vital Signs (last 24 hours): Temp Pulse Resp BP Pulse Ox 98.8 F 86 16 113/68 100 04/04/18 20:00 04/04/18 20:00 04/04/18 20:00 04/04/18 19:57 04/04/18 20:00 Intake and Output: 04/04/18 04/05/18 18:59 06:59 Intake Total 2112.4 75.4 Balance 2112.4 75.4 - Medications Medications: Current Medications Albumin Human (Albumin Human 25% (12.5 Gm/50 Ml)) 12.5 gm IV Q12 [facility] Last Admin: 04/04/18 10:07 Dose: 12.5 gm Albuterol/Ipratropium (Duoneb 3 Mg/0.5 Mg (3 Ml) Ud) 3 ml INH RQ6 PRN PRN Reason: Shortness of Breath Last Admin: 04/03/18 13:37 Dose: 3 ml Ascorbic Acid (Vitamin C 500 Mg Tab) 500 mg PO BID [facility] Last Admin: 04/04/18 17:12 Dose: 500 mg Calcium Acetate (Phoslo) 667 mg PO TIDCC [facility] Last Admin: 04/04/18 17:11 Dose: 667 mg Ergocalciferol (Drisdol 50,000 Intl Units Cap) 1 cap PO Q7D [facility] Last Admin: 04/04/18 12:11 Dose: 1 cap Ferrous Gluconate (Fergon) 324 mg PO TID [facility] Last Admin: 04/04/18 17:12 Dose: 324 mg Heparin Sodium (Porcine) (Heparin) 5,000 units SC Q12 [facility] Last Admin: 04/03/18 21:18 Dose: 5,000 units Linezolid (Zyvox 600mg/300ml D5w) 600 mg in 300 mls @ 200 mls/hr IVPB Q12 [facility] PRN Reason: Protocol Last Admin: 04/04/18 09:48 Dose: 200 mls/hr Doxycycline Hyclate 100 mg/ (Sodium Chloride) 100 mls @ 100 mls/hr IVPB Q12H [facility] PRN Reason: Protocol Last Admin: 04/04/18 12:15 Dose: 100 mls/hr Dexmedetomidine HCl 200 mcg/ (Sodium Chloride) 50 mls @ 2.7 mls/hr IV TITR [facility] ; 0.2 MCG/KG/HR PRN Reason: Protocol Last Admin: 04/04/18 06:22 Dose: 0.2 mcg/kg/hr, 2.7 mls/hr Ampicillin 2 gm/ Sodium (Chloride) 100 mls @ 50 mls/hr IVPB Q12H [facility] PRN Reason: Protocol Last Admin: 04/04/18 18:02 Dose: 50 mls/hr Meropenem 500 mg/ Sodium (Chloride) 100 mls @ 200 mls/hr IVPB Q24H [facility] PRN Reason: Protocol Last Admin: 04/04/18 09:47 Dose: 200 mls/hr Lorazepam (Ativan) 2 mg IVP Q6H PRN PRN Reason: Anxiety Last Admin: 04/01/18 22:46 Dose: 2 mg Multivitamins/Vitamin C (Multi-Delyn Liquid) 5 ml PO DAILY [facility] Last Admin: 04/04/18 10:10 Dose: 5 ml Pantoprazole Sodium (Protonix Inj) 40 mg IVP DAILY [facility] Last Admin: 04/04/18 10:08 Dose: 40 mg - Labs Labs: 04/04/18 06:39 04/04/18 06:39 PT 15.5 SECONDS (9.7-12.2) H 04/01/18 21:45 INR 1.4 04/01/18 21:45 APTT 32 SECONDS (21-34) 04/01/18 21:45 - Head Exam Head Exam: ATRAUMATIC - Eye Exam Eye Exam: Normal appearance - ENT Exam ENT Exam: Mucous Membranes Dry - Respiratory Exam Respiratory Exam: NORMAL BREATHING PATTERN - Cardiovascular Exam Cardiovascular Exam: +S1, +S2 - GI/Abdominal Exam GI & Abdominal Exam: Normal Bowel Sounds Assessment and Plan (1) Leukocytosis Assessment & Plan: no blasts on peripheral smear myeloproliferative w/u sent; BCR/ABL and JAK2 may be reactive to infection/inflammation Status: Acute (2) Anemia Assessment & Plan: chronic disease and renal disease transfusion support Status: Acute (3) Thrombocytopenia Assessment & Plan: likely sepsis related trend fibrinogen to rule out evolving DIC will send heparin AB and GODWIN to rule out HIT Status: Acute (4) Coagulopathy Assessment & Plan: nutritiona, sepsis rule out evolving DIC Status: Acute
--- NOTE | 2018-04-05 00:02 | CP.PCM.PN ---
Subjective - Date & Time of Evaluation Date of Evaluation: 04/04/18 Time of Evaluation: 19:00 - Subjective Subjective: Pt seen and examined at bedside Objective - Vital Signs/Intake and Output Vital Signs (last 24 hours): Temp Pulse Resp BP Pulse Ox 98.8 F 93 H 16 115/73 100 04/04/18 20:00 04/04/18 23:00 04/04/18 23:00 04/04/18 22:57 04/04/18 23:00 Intake and Output: 04/04/18 04/05/18 18:59 06:59 Intake Total 2112.4 488.5 Balance 2112.4 488.5 - Medications Medications: Current Medications Albumin Human (Albumin Human 25% (12.5 Gm/50 Ml)) 12.5 gm IV Q12 [facility] Last Admin: 04/04/18 22:11 Dose: 12.5 gm Albuterol/Ipratropium (Duoneb 3 Mg/0.5 Mg (3 Ml) Ud) 3 ml INH RQ6 PRN PRN Reason: Shortness of Breath Last Admin: 04/03/18 13:37 Dose: 3 ml Ascorbic Acid (Vitamin C 500 Mg Tab) 500 mg PO BID [facility] Last Admin: 04/04/18 17:12 Dose: 500 mg Calcium Acetate (Phoslo) 667 mg PO TIDCC [facility] Last Admin: 04/04/18 17:11 Dose: 667 mg Ergocalciferol (Drisdol 50,000 Intl Units Cap) 1 cap PO Q7D [facility] Last Admin: 04/04/18 12:11 Dose: 1 cap Ferrous Gluconate (Fergon) 324 mg PO TID [facility] Last Admin: 04/04/18 17:12 Dose: 324 mg Heparin Sodium (Porcine) (Heparin) 5,000 units SC Q12 [facility] Last Admin: 04/03/18 21:18 Dose: 5,000 units Linezolid (Zyvox 600mg/300ml D5w) 600 mg in 300 mls @ 200 mls/hr IVPB Q12 [facility] PRN Reason: Protocol Last Admin: 04/04/18 21:47 Dose: 200 mls/hr Doxycycline Hyclate 100 mg/ (Sodium Chloride) 100 mls @ 100 mls/hr IVPB Q12H [facility] PRN Reason: Protocol Last Admin: 04/04/18 12:15 Dose: 100 mls/hr Dexmedetomidine HCl 200 mcg/ (Sodium Chloride) 50 mls @ 2.7 mls/hr IV TITR [facility] ; 0.2 MCG/KG/HR PRN Reason: Protocol Last Admin: 04/04/18 06:22 Dose: 0.2 mcg/kg/hr, 2.7 mls/hr Ampicillin 2 gm/ Sodium (Chloride) 100 mls @ 50 mls/hr IVPB Q12H [facility] PRN Reason: Protocol Last Admin: 04/04/18 18:02 Dose: 50 mls/hr Meropenem 500 mg/ Sodium (Chloride) 100 mls @ 200 mls/hr IVPB Q24H [facility] PRN Reason: Protocol Last Admin: 04/04/18 09:47 Dose: 200 mls/hr Lorazepam (Ativan) 2 mg IVP Q6H PRN PRN Reason: Anxiety Last Admin: 04/01/18 22:46 Dose: 2 mg Multivitamins/Vitamin C (Multi-Delyn Liquid) 5 ml PO DAILY [facility] Last Admin: 04/04/18 10:10 Dose: 5 ml Pantoprazole Sodium (Protonix Inj) 40 mg IVP DAILY [facility] Last Admin: 04/04/18 10:08 Dose: 40 mg - Labs Labs: 04/04/18 06:39 04/04/18 06:39 PT 15.5 SECONDS (9.7-12.2) H 04/01/18 21:45 INR 1.4 04/01/18 21:45 APTT 32 SECONDS (21-34) 04/01/18 21:45 Assessment and Plan (1) Coagulopathy Status: Acute (2) Altered mental status Status: Acute (3) Myoglobinuria Status: Acute (4) Renal failure Status: Acute
--- NOTE | 2018-04-05 01:43 | PN ---
DATE: 04/04/2018 SUBJECTIVE: The patient was intubated. She was very awake. She was also receiving blood transfusion today. I asked her if she ate any raw oysters and she seems to not know. I asked her about cheese and she was not sure. I asked her if there was anybody else who accompanied her on the cruise, it seems like she had a friend, but unable to get the name as she is intubated. She was getting transfusion. She has been on 40% FiO2, intubated. PHYSICAL EXAMINATION: VITAL SIGNS: T-max was 98.1, pulse 80, blood pressure 124/71, respirations were 18. HEENT: Head is atraumatic. NECK: Supple. LUNGS: Clear. HEART: S1, S2 is regular. 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 Urine culture was negative. Her repeat cultures have been negative. Her labs have white count of 47,000 today, hemoglobin was 6.8, hematocrit 20.5, platelet count is 85, it is low and we are going to run a DIC workup tomorrow and repeat. She is getting transfusion. Sodium 136, potassium 4.2, CO2 is 21, anion gap is 21, BUN is 55, creatinine is 3. Serology hepatitis A, B, and C is all negative. Immunology showed serum immunofixation, detected kappa chains were low, I think. Peroxidase was less than 1, oncologist is following that. Drug screen was done, which was all negative. Vancomycin was 20.5 yesterday. Other reports; she had a pelvic ultrasound today and the pelvic ultrasound showed gas noted within the endometrial canal, in the lower uterus and cervix, this can be iatrogenic as indicated on the CAT scan dated 04/02/2018. This can be related to endometritis, necrotic tumor, uterine fibroids. ASSESSMENT AND PLAN: So we are not sure if she has a malignancy. She remains anemic. 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 I am not sure if this is a part of Listeria or she had exposure to vibrio vulnificus as the whole body appears to be that and she did have ulcerations in her legs which are chronic and necrotic, and if she went into water in the swimming pool in the cruise, she may have got an infection. So at this point, I will continue with doxycycline, we will discontinue clindamycin. We will continue with the Merrem as she remains intubated and she is on Zyvox, ampicillin, and Merrem, but cannot increase the doses as she still remains in renal failure and she remains severely anemic. We will follow, and also she needs line changes which are in the groin. Prognosis still remains guarded. We will follow. She seems to be alert, but she is intubated, so we do not know, and we will follow. Since she was on a cruise, this needs to be considered and the food kept there may have had Listeria, probably cheeses on the cruise could be a source. Festus Camarena MD
[2018-04-05 04:42] LABS: ARTERIAL BLOOD GAS HCO3 23.9 mmol/L (21-28); ARTERIAL BLOOD GAS HEMOGLOBIN 10.7 g/dL (11.7-17.4); ARTERIAL BLOOD GAS O2 SAT 98.5 % (95-98); ARTERIAL BLOOD GAS PCO2 26 mm/Hg (35-45); ARTERIAL BLOOD GAS PH 7.51 (7.35-7.45); ARTERIAL BLOOD GAS PO2 157 mm/Hg (80-100); ARTERIAL BLOOD GAS TCO2 21.5 mmol/L (22-28)
[2018-04-05] MEDS: AMPicillin 2 GM in Sodium Chloride 100 ML IVPB SCH ×2 (06:01→19:31)
[2018-04-05 06:28] LABS: BASO # 0.1 K/uL (0.0-0.2); BASO % 0.2 % (0.0-2.0); HEMOGLOBIN 9.6 g/dL (11.0-16.0); LYMPH # 1.2 K/uL (1.0-4.3); LYMPH % 2.5 % (20.0-40.0); MEAN CELL VOLUME 79.3 fL (81.0-99.0); MEAN CORPUSCULAR HEMOGLOBIN 26.8 pg (27.0-31.0); MEAN CORPUSCULAR HGB CONC 33.8 g/dL (33.0-37.0); MEAN PLATELET VOLUME 8.8 fL (7.2-11.7); NEUT # 45.6 K/uL (1.8-7.0); NEUT % 95.3 % (50.0-75.0); NRBC % 0.2 % (0.0-2.0); PLATELET COUNT 106 K/uL (130-400); RED CELL DISTRIBUTION WIDTH 23.3 % (11.5-14.5)
[2018-04-05 06:42] LABS: WHITE BLOOD COUNT 47.8 K/uL (4.8-10.8)
[2018-04-05 06:43] LABS: ALB/GLOB RATIO 0.9 (1.0-2.1); ALT/SGPT 69 U/L (9-52); AST/SGOT 50 U/L (14-36); BLOOD UREA NITROGEN 73 mg/dL (7-17); CALCIUM 7.7 mg/dl (8.6-10.4)
[2018-04-05 06:48] LABS: COMPLEMENT C4 18.1 mg/dL (14.0-44.0)
[2018-04-05 07:00] LABS: GFR AFRICAN-AMERICAN 20; GFR NON-AFRICAN AMERICAN 16
[2018-04-05 07:02] LABS: PARTIAL THROMBOPLASTIN TIME 29 SECONDS (21-34); PROTHROMBIN TIME 11.2 SECONDS (9.7-12.2)
[2018-04-05 07:03] LABS: FIBRINOGEN 289 mg/dL (200-400)
[2018-04-05 07:55] LABS: D DIMER > 5250 ng/mlDDU (0-243)
[2018-04-05 08:29] LABS: ANISOCYTOSIS MODERATE; BANDS 2 % (0-2); HYPOCHROMIC SLIGHT; LYMPHOCYTE 3 % (20-40); MONOCYTE 2 % (0-10); NEUTROPHIL 93 % (50-75); PLATELET ESTIMATE SLIGHTLY DECREASED (NORMAL); TOTAL CELLS COUNTED 100
[2018-04-05] MEDS: Meropenem 500 MG in Sodium Chloride 0.9% 100 ML IVPB SCH (09:00)
[2018-04-05] MEDS: Albumin Human 25% (12.5 gm/50 ml) IV SCH ×2 (09:00→21:30)
[2018-04-05] MEDS: Linezolid 600 mg in D5W 300 ml 600 MG/300 ML BAG IVPB SCH ×2 (10:07→21:30)
[2018-04-05] MEDS: Multiple Vitamins Oral Solution PO SCH (10:09)
--- NOTE | 2018-04-05 10:21 | RAD ---
HISTORY: follow up vent COMPARISON: Chest radiograph dated 04/04/2018. FINDINGS: LUNGS: No active pulmonary disease. PLEURA: Stable elevation of the right hemidiaphragm. No significant pleural effusion identified, no pneumothorax apparent. CARDIOVASCULAR: Normal. OSSEOUS STRUCTURES: Unchanged. VISUALIZED UPPER ABDOMEN: Normal. OTHER FINDINGS: Endotracheal, enteric tubes, unchanged. IMPRESSION: Limited examination due to patient rotation. Stable tubes and lines. No significant interval change.
[2018-04-05] MEDS ORDERED: HEPARIN-NS 5,000 UNITS/500 ML 5,000 UNIT/500 ML BAG IV ONE (13:47)
[2018-04-05] MEDS ORDERED: Iohexol 240 (50 ml) ONE (13:47)
--- NOTE | 2018-04-05 13:48 | CP.PCM.PN ---
Subjective - Date & Time of Evaluation Date of Evaluation: 04/05/18 Time of Evaluation: 01:20 - Subjective Subjective: dictated Objective - Vital Signs/Intake and Output Vital Signs (last 24 hours): Temp Pulse Resp BP Pulse Ox 98.5 F 98 H 19 118/70 99 04/05/18 12:00 04/05/18 13:00 04/05/18 13:00 04/05/18 12:57 04/05/18 13:00 Intake and Output: 04/05/18 04/05/18 06:59 18:59 Intake Total 807.4 700 Balance 807.4 700 - Medications Medications: Current Medications Albumin Human (Albumin Human 25% (12.5 Gm/50 Ml)) 12.5 gm IV Q12 [facility] Last Admin: 04/05/18 09:00 Dose: 12.5 gm Albuterol/Ipratropium (Duoneb 3 Mg/0.5 Mg (3 Ml) Ud) 3 ml INH RQ6 PRN PRN Reason: Shortness of Breath Last Admin: 04/03/18 13:37 Dose: 3 ml Ascorbic Acid (Vitamin C 500 Mg Tab) 500 mg PO BID [facility] Last Admin: 04/05/18 10:10 Dose: Not Given Calcium Acetate (Phoslo) 1,334 mg PO TIDCC [facility] Last Admin: 04/05/18 12:25 Dose: Not Given Ergocalciferol (Drisdol 50,000 Intl Units Cap) 1 cap PO Q7D [facility] Last Admin: 04/04/18 12:11 Dose: 1 cap Ferrous Gluconate (Fergon) 324 mg PO TID [facility] Last Admin: 04/05/18 10:09 Dose: Not Given Heparin Sodium (Porcine) (Heparin) 5,000 units SC Q12 [facility] Last Admin: 04/03/18 21:18 Dose: 5,000 units Linezolid (Zyvox 600mg/300ml D5w) 600 mg in 300 mls @ 200 mls/hr IVPB Q12 [facility] PRN Reason: Protocol Last Admin: 04/05/18 10:07 Dose: 200 mls/hr Doxycycline Hyclate 100 mg/ (Sodium Chloride) 100 mls @ 100 mls/hr IVPB Q12H [facility] PRN Reason: Protocol Last Admin: 04/05/18 12:27 Dose: 100 mls/hr Dexmedetomidine HCl 200 mcg/ (Sodium Chloride) 50 mls @ 2.7 mls/hr IV TITR [facility] ; 0.2 MCG/KG/HR PRN Reason: Protocol Last Titration: 04/05/18 05:00 Dose: Infused Ampicillin 2 gm/ Sodium (Chloride) 100 mls @ 50 mls/hr IVPB Q12H [facility] PRN Reason: Protocol Last Admin: 04/05/18 06:01 Dose: 50 mls/hr Dextrose (Dextrose 10% In Water) 1,000 mls @ 40 mls/hr IV .Q24H [facility] Last Admin: 04/05/18 08:00 Dose: 40 mls/hr Lorazepam (Ativan) 2 mg IVP Q6H PRN PRN Reason: Anxiety Last Admin: 04/01/18 22:46 Dose: 2 mg Multivitamins/Vitamin C (Multi-Delyn Liquid) 5 ml PO DAILY [facility] Last Admin: 04/05/18 10:09 Dose: Not Given Pantoprazole Sodium (Protonix Inj) 40 mg IVP DAILY [facility] Last Admin: 04/05/18 10:08 Dose: 40 mg - Labs Labs: 04/05/18 06:14 04/05/18 06:15 PT 11.2 SECONDS (9.7-12.2) 04/05/18 06:15 INR 1.0 04/05/18 06:15 APTT 29 SECONDS (21-34) 04/05/18 06:15
--- NOTE | 2018-04-05 13:58 | CP.CCUPN ---
<[email or web address] - Last Filed: 04/05/18 13:56> CCU Subjective - Physician Review Subjective (Free Text): Patient has been and examined. Patient is currently intubated tolerating 40% FiO2. Patient was able to answer Review of systems with head nods. She denies any fevers or chills. She states her breathing is about the same. She denies any chest pain or palpitations. She does complain of abdominal pain and nausea. CCU Objective - Vital Signs / Intake & Output Vital Signs (Last 4 hours): Vital Signs Temp Pulse Resp BP Pulse Ox 04/05/18 13:00 98 H 19 99 04/05/18 12:57 94 H 19 118/70 99 04/05/18 12:25 89 20 98 04/05/18 12:00 98.5 F 99 04/05/18 11:57 86 20 117/72 100 04/05/18 11:00 91 H 20 100 04/05/18 10:57 93 H 19 120/68 100 04/05/18 10:00 95 H 20 100 04/05/18 09:57 94 H 21 112/72 100 Intake and Output (Last 8hrs): Intake & Output 04/04/18 04/05/18 04/05/18 22:59 06:59 14:59 Intake Total 876.6 656.6 700 Balance 876.6 656.6 700 Weight 125 lb 8 oz Intake: IV 50 Intake, IV Amount 121.6 571.6 700 Left Antecubital 13.5 Right Femoral 8.1 21.6 700 right fem 100 550 Oral 0 Tube Feeding 280 35 Blood Product 325 Red Blood Cells Cpd As1 325 Lr Unit [id number] Other 150 Other: # Voids Urine, Voided 0 # Bowel Movements 0 - Physical Exam Head: Positive for: Atraumatic Mouth: Positive for: Moist Mucous Membranes Respiratory/Chest: Positive for: Good Air Exchange. Negative for: Respiratory Distress, Accessory Muscle Use Abdomen: Positive for: Other (abdomen reveals a 5 cm circular bulb no Bowel sounds in bulb) Upper Extremity: Negative for: Cyanosis Lower Extremity: Positive for: Other (non-blanching ecchymotic lesions covering more than 25 percent of lower and abdomen) Neurological: Negative for: GCS=15 (11T) - Medications Active Medications: Active Medications Generic Name Dose Route Start Last Admin Trade Name Freq PRN Reason Stop Dose Admin Albumin Human 12.5 gm 04/01/18 22:30 04/05/18 09:00 Albumin Human 25% (12.5 Gm/50 Ml) IV 12.5 gm Q12 NOLAN Administration Albuterol/Ipratropium 3 ml 04/03/18 09:30 04/03/18 13:37 Duoneb 3 Mg/0.5 Mg (3 Ml) Ud INH 3 ml RQ6 PRN Administration Shortness of Breath Ascorbic Acid 500 mg 04/02/18 10:00 04/05/18 10:10 Vitamin C 500 Mg Tab PO Not Given BID NOLAN Calcium Acetate 1,334 mg 04/05/18 09:32 04/05/18 12:25 Phoslo PO Not Given TIDCC NOLAN Ergocalciferol 1 cap 04/04/18 10:45 04/04/18 12:11 Drisdol 50,000 Intl Units Cap PO 1 cap Q7D NOLAN Administration Ferrous Gluconate 324 mg 04/04/18 14:00 04/05/18 10:09 Fergon PO Not Given TID NOLAN Heparin Sodium (Porcine) 5,000 units 04/02/18 22:00 04/03/18 21:18 Heparin SC 5,000 units Q12 NOLAN Administration Linezolid 600 mg in 300 mls @ 200 mls/hr 04/01/18 22:00 04/05/18 10:07 Zyvox 600mg/300ml D5w IVPB 200 mls/hr Q12 NOLAN Administration Protocol Doxycycline Hyclate 100 mg/ 100 mls @ 100 mls/hr 04/02/18 13:00 04/05/18 12: 27 Sodium Chloride IVPB 100 mls/hr Q12H NOLAN Administration Protocol Dexmedetomidine HCl 200 mcg/ 50 mls @ 2.7 mls/hr 04/03/18 09:45 04/05/18 05: 00 Sodium Chloride IV Infused TITR NOLAN Titration Protocol 0.2 MCG/KG/HR Ampicillin 2 gm/ Sodium 100 mls @ 50 mls/hr 04/03/18 19:00 04/05/18 06:01 Chloride IVPB 50 mls/hr Q12H NOLAN Administration Protocol Dextrose 1,000 mls @ 40 mls/hr 04/05/18 08:00 04/05/18 08:00 Dextrose 10% In Water IV 40 mls/hr .Q24H NOLAN Administration Lorazepam 2 mg 04/01/18 22:32 04/01/18 22:46 Ativan IVP 2 mg Q6H PRN Administration Anxiety Multivitamins/Vitamin C 5 ml 04/03/18 10:15 04/05/18 10:09 Multi-Delyn Liquid PO Not Given DAILY NOLAN Pantoprazole Sodium 40 mg 04/02/18 10:00 04/05/18 10:08 Protonix Inj IVP 40 mg DAILY NOLAN Administration - Patient Studies Lab Studies: Microbiology Studies 04/03/18 20:22 Gram Stain - Final Leg - Left Wound Culture - Preliminary No growth. 04/03/18 19:30 Gram Stain - Final Leg - Right Wound Culture - Preliminary No growth. 04/02/18 08:53 Blood Culture - Preliminary Blood-Venous NO GROWTH AFTER 3 DAYS 04/02/18 08:53 Blood Culture - Preliminary Blood-Venous NO GROWTH AFTER 3 DAYS Lab Studies 04/05/18 04/05/18 04/05/18 Range/Units 11:33 06:15 06:15 WBC (4.8-10.8) K/uL RBC (3.80-5.20) Mil/uL Hgb (11.0-16.0) g/dL Hct (34.0-47.0) % MCV (81.0-99.0) fL MCH (27.0-31.0) pg MCHC (33.0-37.0) g/dL RDW (11.5-14.5) % Plt Count (130-400) K/uL MPV (7.2-11.7) fL Neut % (Auto) (50.0-75.0) % Lymph % (Auto) (20.0-40.0) % [place] % (Auto) (0.0-10.0) % Eos % (Auto) (0.0-4.0) % Baso % (Auto) (0.0-2.0) % Neut # (Auto) (1.8-7.0) K/uL Lymph # (Auto) (1.0-4.3) K/uL [place] # (Auto) (0.0-0.8) K/uL Eos # (Auto) (0.0-0.7) K/uL Baso # (Auto) (0.0-0.2) K/uL Neutrophils % (Manual) (50-75) % Band Neutrophils % (0-2) % Lymphocytes % (Manual) (20-40) % Monocytes % (Manual) (0-10) % Platelet Estimate (NORMAL) Hypochromasia (manual) Anisocytosis (manual) Retic Count (0.5-1.5) % Haptoglobin 346.1 H (30.0-200.0) mg/dL PT 11.2 (9.7-12.2) SECONDS INR 1.0 APTT 29 (21-34) SECONDS Fibrinogen 289 (200-400) mg/dL Fibrin Degrad Products Cancelled Fibrin Degrad Prod, Qt Cancelled D-Dimer, Quantitative > 5250 H (0-243) ng/mlDDU Puncture Site pCO2 (35-45) mm/Hg pO2 (80-100) mm/Hg HCO3 (21-28) mmol/L ABG pH (7.35-7.45) ABG Total CO2 (22-28) mmol/L ABG O2 Saturation (95-98) % ABG Base Excess (-2.0-3.0) mmol/L ABG Hemoglobin (11.7-17.4) g/dL ABG Carboxyhemoglobin (0.5-1.5) % POC ABG HHb (Measured) (0.0-5.0) % ABG Methemoglobin (0.0-3.0) % Jann Test A-a O2 Difference mm/Hg Respiratory Index Hgb O2 Saturation (95.0-98.0) % Vent Mode Mechanical Rate FiO2 % Tidal Volume PEEP Sodium (132-148) mmol/L Potassium (3.6-5.2) mmol/L Chloride (98-107) mmol/L Carbon Dioxide (22-30) mmol/L Anion Gap (10-20) BUN (7-17) mg/dL Creatinine (0.7-1.2) mg/dL Est GFR ( Amer) Est GFR (Non-Af Amer) POC Glucose (mg/dL) 115 H (65-110) mg/dL Random Glucose (65-105) mg/dL Calcium (8.6-10.4) mg/dl Phosphorus (2.5-4.5) mg/dL Magnesium (1.6-2.3) mg/dL Total Bilirubin (0.2-1.3) mg/dL AST (14-36) U/L ALT (9-52) U/L Alkaline Phosphatase (38-126) U/L Total Protein (6.3-8.3) g/dL Albumin (3.5-5.0) g/dL Globulin (2.2-3.9) gm/dL Albumin/Globulin Ratio (1.0-2.1) Carcinoembryonic Ag (0-3.0) ng/mL CA 19-9 Antigen (0-37) U/mL CA 125 Antigen (0-35) U/mL Beta HCG, Quant mIU/ML Complement C3 (88.0-165.0) mg/dL Complement C4 (14.0-44.0) mg/dL Tot Complement (CH50) (31-60) U/mL Tot Mcfall/Lambda Ratio (1.29-2.55) Mcfall Light Chain Anal (176-443) mg/dL Lambda Light Chain Anal (91-240) mg/dL 04/05/18 04/05/18 04/05/18 Range/Units 06:15 06:15 06:14 WBC 47.8 H* (4.8-10.8) K/uL RBC 3.60 L (3.80-5.20) Mil/uL Hgb 9.6 L D (11.0-16.0) g/dL Hct 28.5 L (34.0-47.0) % MCV 79.3 L D (81.0-99.0) fL MCH 26.8 L (27.0-31.0) pg MCHC 33.8 (33.0-37.0) g/dL RDW 23.3 H (11.5-14.5) % Plt Count 106 L D (130-400) K/uL MPV 8.8 (7.2-11.7) fL Neut % (Auto) 95.3 H (50.0-75.0) % Lymph % (Auto) 2.5 L (20.0-40.0) % [place] % (Auto) 2.0 (0.0-10.0) % Eos % (Auto) 0.0 (0.0-4.0) % Baso % (Auto) 0.2 (0.0-2.0) % Neut # (Auto) 45.6 H (1.8-7.0) K/uL Lymph # (Auto) 1.2 (1.0-4.3) K/uL [place] # (Auto) 1.0 H (0.0-0.8) K/uL Eos # (Auto) 0.0 (0.0-0.7) K/uL Baso # (Auto) 0.1 (0.0-0.2) K/uL Neutrophils % (Manual) 93 H (50-75) % Band Neutrophils % 2 (0-2) % Lymphocytes % (Manual) 3 L (20-40) % Monocytes % (Manual) 2 (0-10) % Platelet Estimate Slightly decreased L (NORMAL) Hypochromasia (manual) Slight Anisocytosis (manual) Moderate Retic Count 1.4 (0.5-1.5) % Haptoglobin (30.0-200.0) mg/dL PT (9.7-12.2) SECONDS INR APTT (21-34) SECONDS Fibrinogen (200-400) mg/dL Fibrin Degrad Products Fibrin Degrad Prod, Qt D-Dimer, Quantitative (0-243) ng/mlDDU Puncture Site pCO2 (35-45) mm/Hg pO2 (80-100) mm/Hg HCO3 (21-28) mmol/L ABG pH (7.35-7.45) ABG Total CO2 (22-28) mmol/L ABG O2 Saturation (95-98) % ABG Base Excess (-2.0-3.0) mmol/L ABG Hemoglobin (11.7-17.4) g/dL ABG Carboxyhemoglobin (0.5-1.5) % POC ABG HHb (Measured) (0.0-5.0) % ABG Methemoglobin (0.0-3.0) % Jann Test A-a O2 Difference mm/Hg Respiratory Index Hgb O2 Saturation (95.0-98.0) % Vent Mode Mechanical Rate FiO2 % Tidal Volume PEEP Sodium 133 (132-148) mmol/L Potassium 4.8 (3.6-5.2) mmol/L Chloride 97 L (98-107) mmol/L Carbon Dioxide 18 L (22-30) mmol/L Anion Gap 23 H (10-20) BUN 73 H (7-17) mg/dL Creatinine 3.0 H (0.7-1.2) mg/dL Est GFR ( Amer) 20 Est GFR (Non-Af Amer) 16 POC Glucose (mg/dL) (65-110) mg/dL Random Glucose 76 (65-105) mg/dL Calcium 7.7 L (8.6-10.4) mg/dl Phosphorus 6.7 H (2.5-4.5) mg/dL Magnesium 1.9 (1.6-2.3) mg/dL Total Bilirubin 0.7 (0.2-1.3) mg/dL AST 50 H (14-36) U/L ALT 69 H (9-52) U/L Alkaline Phosphatase 173 H D (38-126) U/L Total Protein 4.4 L (6.3-8.3) g/dL Albumin 2.0 L (3.5-5.0) g/dL Globulin 2.3 (2.2-3.9) gm/dL Albumin/Globulin Ratio 0.9 L (1.0-2.1) Carcinoembryonic Ag 5.7 H (0-3.0) ng/mL CA 19-9 Antigen 286 H (0-37) U/mL CA 125 Antigen 90.6 H (0-35) U/mL Beta HCG, Quant < 2.39 mIU/ML Complement C3 78.0 L (88.0-165.0) mg/dL Complement C4 18.1 (14.0-44.0) mg/dL Tot Complement (CH50) (31-60) U/mL Tot Mcfall/Lambda Ratio (1.29-2.55) Mcfall Light Chain Anal (176-443) mg/dL Lambda Light Chain Anal (91-240) mg/dL 04/05/18 04/05/18 04/04/18 Range/Units 04:29 04:25 23:53 WBC (4.8-10.8) K/uL RBC (3.80-5.20) Mil/uL Hgb (11.0-16.0) g/dL Hct (34.0-47.0) % MCV (81.0-99.0) fL MCH (27.0-31.0) pg MCHC (33.0-37.0) g/dL RDW (11.5-14.5) % Plt Count (130-400) K/uL MPV (7.2-11.7) fL Neut % (Auto) (50.0-75.0) % Lymph % (Auto) (20.0-40.0) % [place] % (Auto) (0.0-10.0) % Eos % (Auto) (0.0-4.0) % Baso % (Auto) (0.0-2.0) % Neut # (Auto) (1.8-7.0) K/uL Lymph # (Auto) (1.0-4.3) K/uL [place] # (Auto) (0.0-0.8) K/uL Eos # (Auto) (0.0-0.7) K/uL Baso # (Auto) (0.0-0.2) K/uL Neutrophils % (Manual) (50-75) % Band Neutrophils % (0-2) % Lymphocytes % (Manual) (20-40) % Monocytes % (Manual) (0-10) % Platelet Estimate (NORMAL) Hypochromasia (manual) Anisocytosis (manual) Retic Count (0.5-1.5) % Haptoglobin (30.0-200.0) mg/dL PT (9.7-12.2) SECONDS INR APTT (21-34) SECONDS Fibrinogen (200-400) mg/dL Fibrin Degrad Products Fibrin Degrad Prod, Qt D-Dimer, Quantitative (0-243) ng/mlDDU Puncture Site Rb pCO2 26 L (35-45) mm/Hg pO2 157 H (80-100) mm/Hg HCO3 23.9 (21-28) mmol/L ABG pH 7.51 H (7.35-7.45) ABG Total CO2 21.5 L (22-28) mmol/L ABG O2 Saturation 98.5 H (95-98) % ABG Base Excess -1.3 (-2.0-3.0) mmol/L ABG Hemoglobin 10.7 L (11.7-17.4) g/dL ABG Carboxyhemoglobin 1.1 (0.5-1.5) % POC ABG HHb (Measured) 1.5 (0.0-5.0) % ABG Methemoglobin 1.3 (0.0-3.0) % Jann Test Na A-a O2 Difference 96.0 mm/Hg Respiratory Index 0.6 Hgb O2 Saturation 96.0 (95.0-98.0) % Vent Mode Prvc Mechanical Rate 16 FiO2 40.0 % Tidal Volume 450 PEEP 5 Sodium (132-148) mmol/L Potassium (3.6-5.2) mmol/L Chloride (98-107) mmol/L Carbon Dioxide (22-30) mmol/L Anion Gap (10-20) BUN (7-17) mg/dL Creatinine (0.7-1.2) mg/dL Est GFR ( Amer) Est GFR (Non-Af Amer) POC Glucose (mg/dL) 90 110 (65-110) mg/dL Random Glucose (65-105) mg/dL Calcium (8.6-10.4) mg/dl Phosphorus (2.5-4.5) mg/dL Magnesium (1.6-2.3) mg/dL Total Bilirubin (0.2-1.3) mg/dL AST (14-36) U/L ALT (9-52) U/L Alkaline Phosphatase (38-126) U/L Total Protein (6.3-8.3) g/dL Albumin (3.5-5.0) g/dL Globulin (2.2-3.9) gm/dL Albumin/Globulin Ratio (1.0-2.1) Carcinoembryonic Ag (0-3.0) ng/mL CA 19-9 Antigen (0-37) U/mL CA 125 Antigen (0-35) U/mL Beta HCG, Quant mIU/ML Complement C3 (88.0-165.0) mg/dL Complement C4 (14.0-44.0) mg/dL Tot Complement (CH50) (31-60) U/mL Tot Mcfall/Lambda Ratio (1.29-2.55) Mcfall Light Chain Anal (176-443) mg/dL Lambda Light Chain Anal (91-240) mg/dL 04/03/18 04/02/18 Range/Units 06:33 08:41 WBC (4.8-10.8) K/uL RBC (3.80-5.20) Mil/uL Hgb (11.0-16.0) g/dL Hct (34.0-47.0) % MCV (81.0-99.0) fL MCH (27.0-31.0) pg MCHC (33.0-37.0) g/dL RDW (11.5-14.5) % Plt Count (130-400) K/uL MPV (7.2-11.7) fL Neut % (Auto) (50.0-75.0) % Lymph % (Auto) (20.0-40.0) % [place] % (Auto) (0.0-10.0) % Eos % (Auto) (0.0-4.0) % Baso % (Auto) (0.0-2.0) % Neut # (Auto) (1.8-7.0) K/uL Lymph # (Auto) (1.0-4.3) K/uL [place] # (Auto) (0.0-0.8) K/uL Eos # (Auto) (0.0-0.7) K/uL Baso # (Auto) (0.0-0.2) K/uL Neutrophils % (Manual) (50-75) % Band Neutrophils % (0-2) % Lymphocytes % (Manual) (20-40) % Monocytes % (Manual) (0-10) % Platelet Estimate (NORMAL) Hypochromasia (manual) Anisocytosis (manual) Retic Count (0.5-1.5) % Haptoglobin (30.0-200.0) mg/dL PT (9.7-12.2) SECONDS INR APTT (21-34) SECONDS Fibrinogen (200-400) mg/dL Fibrin Degrad Products Fibrin Degrad Prod, Qt D-Dimer, Quantitative (0-243) ng/mlDDU Puncture Site pCO2 (35-45) mm/Hg pO2 (80-100) mm/Hg HCO3 (21-28) mmol/L ABG pH (7.35-7.45) ABG Total CO2 (22-28) mmol/L ABG O2 Saturation (95-98) % ABG Base Excess (-2.0-3.0) mmol/L ABG Hemoglobin (11.7-17.4) g/dL ABG Carboxyhemoglobin (0.5-1.5) % POC ABG HHb (Measured) (0.0-5.0) % ABG Methemoglobin (0.0-3.0) % Jann Test A-a O2 Difference mm/Hg Respiratory Index Hgb O2 Saturation (95.0-98.0) % Vent Mode Mechanical Rate FiO2 % Tidal Volume PEEP Sodium (132-148) mmol/L Potassium (3.6-5.2) mmol/L Chloride (98-107) mmol/L Carbon Dioxide (22-30) mmol/L Anion Gap (10-20) BUN (7-17) mg/dL Creatinine (0.7-1.2) mg/dL Est GFR ( Amer) Est GFR (Non-Af Amer) POC Glucose (mg/dL) (65-110) mg/dL Random Glucose (65-105) mg/dL Calcium (8.6-10.4) mg/dl Phosphorus (2.5-4.5) mg/dL Magnesium (1.6-2.3) mg/dL Total Bilirubin (0.2-1.3) mg/dL AST (14-36) U/L ALT (9-52) U/L Alkaline Phosphatase (38-126) U/L Total Protein (6.3-8.3) g/dL Albumin (3.5-5.0) g/dL Globulin (2.2-3.9) gm/dL Albumin/Globulin Ratio (1.0-2.1) Carcinoembryonic Ag (0-3.0) ng/mL CA 19-9 Antigen (0-37) U/mL CA 125 Antigen (0-35) U/mL Beta HCG, Quant mIU/ML Complement C3 (88.0-165.0) mg/dL Complement C4 (14.0-44.0) mg/dL Tot Complement (CH50) 43 (31-60) U/mL Tot Mcfall/Lambda Ratio 1.46 (1.29-2.55) Mcfall Light Chain Anal 137 L (176-443) mg/dL Lambda Light Chain Anal 94 (91-240) mg/dL Laboratory Results - last 24 hr 04/02/18 04/03/18 04/04/18 08:41 06:33 23:53 WBC RBC Hgb Hct MCV MCH MCHC RDW Plt Count MPV Neut % (Auto) Lymph % (Auto) [place] % (Auto) Eos % (Auto) Baso % (Auto) Neut # (Auto) Lymph # (Auto) [place] # (Auto) Eos # (Auto) Baso # (Auto) Neutrophils % (Manual) Band Neutrophils % Lymphocytes % (Manual) Monocytes % (Manual) Platelet Estimate Hypochromasia (manual) Anisocytosis (manual) Retic Count Haptoglobin PT INR APTT Fibrinogen Fibrin Degrad Products Fibrin Degrad Prod, Qt D-Dimer, Quantitative Puncture Site pCO2 pO2 HCO3 ABG pH ABG Total CO2 ABG O2 Saturation ABG Base Excess ABG Hemoglobin ABG Carboxyhemoglobin POC ABG HHb (Measured) ABG Methemoglobin Jann Test A-a O2 Difference Respiratory Index Hgb O2 Saturation Vent Mode Mechanical Rate FiO2 Tidal Volume PEEP Sodium Potassium Chloride Carbon Dioxide Anion Gap BUN Creatinine Est GFR ( Amer) Est GFR (Non-Af Amer) POC Glucose (mg/dL) 110 Random Glucose Calcium Phosphorus Magnesium Total Bilirubin AST ALT Alkaline Phosphatase Total Protein Albumin Globulin Albumin/Globulin Ratio Carcinoembryonic Ag CA 19-9 Antigen CA 125 Antigen Beta HCG, Quant Complement C3 Complement C4 Tot Complement (CH50) 43 Tot Mcfall/Lambda Ratio 1.46 Mcfall Light Chain Anal 137 L Lambda Light Chain Anal 94 04/05/18 04/05/18 04/05/18 04:25 04:29 06:14 WBC 47.8 H* RBC 3.60 L Hgb 9.6 L D Hct 28.5 L MCV 79.3 L D MCH 26.8 L MCHC 33.8 RDW 23.3 H Plt Count 106 L D MPV 8.8 Neut % (Auto) 95.3 H Lymph % (Auto) 2.5 L [place] % (Auto) 2.0 Eos % (Auto) 0.0 Baso % (Auto) 0.2 Neut # (Auto) 45.6 H Lymph # (Auto) 1.2 [place] # (Auto) 1.0 H Eos # (Auto) 0.0 Baso # (Auto) 0.1 Neutrophils % (Manual) 93 H Band Neutrophils % 2 Lymphocytes % (Manual) 3 L Monocytes % (Manual) 2 Platelet Estimate Slightly decreased L Hypochromasia (manual) Slight Anisocytosis (manual) Moderate Retic Count 1.4 Haptoglobin PT INR APTT Fibrinogen Fibrin Degrad Products Fibrin Degrad Prod, Qt D-Dimer, Quantitative Puncture Site Rb pCO2 26 L pO2 157 H HCO3 23.9 ABG pH 7.51 H ABG Total CO2 21.5 L ABG O2 Saturation 98.5 H ABG Base Excess -1.3 ABG Hemoglobin 10.7 L ABG Carboxyhemoglobin 1.1 POC ABG HHb (Measured) 1.5 ABG Methemoglobin 1.3 Jann Test Na A-a O2 Difference 96.0 Respiratory Index 0.6 Hgb O2 Saturation 96.0 Vent Mode Prvc Mechanical Rate 16 FiO2 40.0 Tidal Volume 450 PEEP 5 Sodium Potassium Chloride Carbon Dioxide Anion Gap BUN Creatinine Est GFR ( Amer) Est GFR (Non-Af Amer) POC Glucose (mg/dL) 90 Random Glucose Calcium Phosphorus Magnesium Total Bilirubin AST ALT Alkaline Phosphatase Total Protein Albumin Globulin Albumin/Globulin Ratio Carcinoembryonic Ag CA 19-9 Antigen CA 125 Antigen Beta HCG, Quant Complement C3 Complement C4 Tot Complement (CH50) Tot Mcfall/Lambda Ratio Mcfall Light Chain Anal Lambda Light Chain Anal 04/05/18 04/05/18 04/05/18 06:15 06:15 06:15 WBC RBC Hgb Hct MCV MCH MCHC RDW Plt Count MPV Neut % (Auto) Lymph % (Auto) [place] % (Auto) Eos % (Auto) Baso % (Auto) Neut # (Auto) Lymph # (Auto) [place] # (Auto) Eos # (Auto) Baso # (Auto) Neutrophils % (Manual) Band Neutrophils % Lymphocytes % (Manual) Monocytes % (Manual) Platelet Estimate Hypochromasia (manual) Anisocytosis (manual) Retic Count Haptoglobin PT 11.2 INR 1.0 APTT 29 Fibrinogen 289 Fibrin Degrad Products Cancelled Fibrin Degrad Prod, Qt Cancelled D-Dimer, Quantitative > 5250 H Puncture Site pCO2 pO2 HCO3 ABG pH ABG Total CO2 ABG O2 Saturation ABG Base Excess ABG Hemoglobin ABG Carboxyhemoglobin POC ABG HHb (Measured) ABG Methemoglobin Jann Test A-a O2 Difference Respiratory Index Hgb O2 Saturation Vent Mode Mechanical Rate FiO2 Tidal Volume PEEP Sodium 133 Potassium 4.8 Chloride 97 L Carbon Dioxide 18 L Anion Gap 23 H BUN 73 H Creatinine 3.0 H Est GFR ( Amer) 20 Est GFR (Non-Af Amer) 16 POC Glucose (mg/dL) Random Glucose 76 Calcium 7.7 L Phosphorus 6.7 H Magnesium 1.9 Total Bilirubin 0.7 AST 50 H ALT 69 H Alkaline Phosphatase 173 H D Total Protein 4.4 L Albumin 2.0 L Globulin 2.3 Albumin/Globulin Ratio 0.9 L Carcinoembryonic Ag 5.7 H CA 19-9 Antigen 286 H CA 125 Antigen 90.6 H Beta HCG, Quant < 2.39 Complement C3 78.0 L Complement C4 18.1 Tot Complement (CH50) Tot Mcfall/Lambda Ratio Mcfall Light Chain Anal Lambda Light Chain Anal 04/05/18 04/05/18 06:15 11:33 WBC RBC Hgb Hct MCV MCH MCHC RDW Plt Count MPV Neut % (Auto) Lymph % (Auto) [place] % (Auto) Eos % (Auto) Baso % (Auto) Neut # (Auto) Lymph # (Auto) [place] # (Auto) Eos # (Auto) Baso # (Auto) Neutrophils % (Manual) Band Neutrophils % Lymphocytes % (Manual) Monocytes % (Manual) Platelet Estimate Hypochromasia (manual) Anisocytosis (manual) Retic Count Haptoglobin 346.1 H PT INR APTT Fibrinogen Fibrin Degrad Products Fibrin Degrad Prod, Qt D-Dimer, Quantitative Puncture Site pCO2 pO2 HCO3 ABG pH ABG Total CO2 ABG O2 Saturation ABG Base Excess ABG Hemoglobin ABG Carboxyhemoglobin POC ABG HHb (Measured) ABG Methemoglobin Jann Test A-a O2 Difference Respiratory Index Hgb O2 Saturation Vent Mode Mechanical Rate FiO2 Tidal Volume PEEP Sodium Potassium Chloride Carbon Dioxide Anion Gap BUN Creatinine Est GFR ( Amer) Est GFR (Non-Af Amer) POC Glucose (mg/dL) 115 H Random Glucose Calcium Phosphorus Magnesium Total Bilirubin AST ALT Alkaline Phosphatase Total Protein Albumin Globulin Albumin/Globulin Ratio Carcinoembryonic Ag CA 19-9 Antigen CA 125 Antigen Beta HCG, Quant Complement C3 Complement C4 Tot Complement (CH50) Tot Mcfall/Lambda Ratio Mcfall Light Chain Anal Lambda Light Chain Anal Fingerstick Blood Sugar Results: 115 Review of Systems - Review of Systems Systems not reviewed;Unavailable: Intubated Review of Systems: denies any fevers or chills. She states her breathing is about the same. She denies any chest pain or palpitations. She does complain of abdominal pain and nausea. - Constitutional Constitutional: Fever Critical Care Progress Note - Nutrition Nutrition: Nutrition Category Date Time Status NPO Diet [DIET] Diets 04/05/18 Breakfast Active Assessment/Plan - Assessment and Plan (Free Text) Assessment: 52 year old female with Unspecified medical history who presented to [facility] ICU from [facility] Emergency Room. [place]. On Admission patient was found to have leukocytosis and significant skin excoriations, foul smelling ulcer in the right leg, multiple ecchymosis in the abdomen/groin area/lower extremity, necrotic tissue on lower extremity and bullae. Patiently found to be severely Anemic and was transfused a total of 5 PRBC's. Patient is edematous in the upper and lower extremities b/ l. 04/04: Transfused 2 Units of PRBC's Plan: Neuro GCS: 10T Sedation: None Cardio: ECHO (04/02): Shows Normal EF (55%) Pulm: CXR (04/04): Endotracheal and NG tube in place. Mild venous congestion. Bilateral hilar prominence. Tortuous ectatic aorta. Biapical pleural thickening with upper lobe granulomatous changes. ABG (04/04): pH-7.56, C02-24, 02-188, HCO3-24.6 ABG (04/05): pH-7.56, C02 - 26, 02-157, HCO3-23.9 Vent: PRVC 40%Fi02, 16 RR, 450 TV, 5 PEEP GI A: Elevated LFT's Abd/Pelvis CT (04/02/18): Prominent gallbladder distention with cholelithiasis. Clinically correlate for potential cholecystitis. Possible ileus or early distal small bowel obstruction. Potential segmental colitis in various large-bowel segments though this is limited in diagnostic power due to collapse of the majority of the large bowel. Mild bilateral hydroureteronephrosis potentially on the basis of enlarged myomatous uterus. Potential infectious or inflammatory process affecting the uterus. Myomatous uterine changes also noted. Anasarca and trace ascites. OBGYN A: Uterine Mass TV US (Held) until patient is more stable. Renal A: LULA (Improving), Hypocalcemia, Hyperphosphetemia. Complement Studies per ID - PENDING [place] Lambda, Lupus, MicroAlbumin w/ Cr, Total Protein, PTH and CA Renal US (04/04): B/L mild hyronephrosis. small non-obstructing renal calculi in Right Kidney HD x 2 since admission HD today after permacath placement. Vascular Surgery Consulted for Permacath placement. Scheduled for this afternoon phos binders, nephrovite, vit D, iron supplements per Nephro urology consult for b/l hydronephrosis per Nephro Heme/Onc A: Iron Def. Anemia s/p 5 Units of PRBCs, thromboycytopenia (Acute). 2 Units of PRBC's transfused on 04/04/18. Hematology/Onc Consulted (Dr. Ospina), Recs Appreciated BCR/ABL1 GENE PCR - PENDING Hgb Today is 6.8 Will Transfuse 2 Units of PRBCs CA 125 - 90.6 , CA19-9 - 286 , CEA - 5.7. All ordered tumor markers elevated. DIC Workup to rule out Purpura Fulminans -Fibrinogen (WNL) Fibrin Split Products - Order Cancelled in AM (Unknown who) , Pt/PTT, Retic Count (WNL), Haptoglobin (Elevated), D- Dimer (Elevated, likely due to Malignancy) Haptoglobin - 346.1 (Elevated) Trend Fibrinogen to rule out evolving DIC per Heme. ID A: Leukocytosis (Improving), Purpura Fulminans vs Cholera? ID Consulted (Dr. Camarena, Recs appreciated) Lower Ext CT (04/02): Anasarca type pattern is favored over fasciitis of the bilateral lower extremities diffusely and is favored over fasciitis the fasciitis is still not excluded, a CT diagnosis is difficult to make without intravenous contrast. Necrotizing fasciitis is not identified however. Further clinical correlation is recommended. Blood Cultures (04/01 [place] ED): POSITIVE for Listeria Monocytogenes Blood Cultures (04/02): NEGATIVE Wound Cultures (04/02): Left and Right leg NEGATIVE (Prelim) ESR (04/03): WNL Hepatitis Panel - NEGATIVE Anitbiotics: Cont. Zyvox, Doxycycline, Clindamycin, Cont. Ampicillin Meropenem Added today per ID General Surgery/Vascular Surgery Consulted, Recs Appreciated. Stool for Vibrio Cholera per ID DIC Workup to rule out Purpura Fulminans -Fibrinogen/Fibrin Split Products, Pt/ PTT, Retic Count, Haptoglobin, D- Dimer Proph Protonix IV Daily Patient seen and discussed with ICU Attending Mik Huynh, PGY-1 <Yomi Mckeon - Last Filed: 04/05/18 16:32> CCU Objective - Vital Signs / Intake & Output Vital Signs (Last 4 hours): Vital Signs Pulse Resp BP Pulse Ox 04/05/18 14:00 97 H 20 100 04/05/18 13:57 89 20 115/75 100 04/05/18 13:00 98 H 19 99 04/05/18 12:57 94 H 19 118/70 99 Intake and Output (Last 8hrs): Intake & Output 04/05/18 04/05/18 04/05/18 06:59 14:59 22:59 Intake Total 656.6 1040 Balance 656.6 1040 Weight 125 lb 8 oz Intake: IV 50 300 Intake, IV Amount 571.6 740 Right Femoral 21.6 740 right fem 550 Oral 0 Tube Feeding 35 Other: # Voids Urine, Voided 0 # Bowel Movements 0 - Medications Active Medications: Active Medications Generic Name Dose Route Start Last Admin Trade Name Freq PRN Reason Stop Dose Admin Albumin Human 12.5 gm 04/01/18 22:30 04/05/18 09:00 Albumin Human 25% (12.5 Gm/50 Ml) IV 12.5 gm Q12 NOLAN Administration Albuterol/Ipratropium 3 ml 04/03/18 09:30 04/03/18 13:37 Duoneb 3 Mg/0.5 Mg (3 Ml) Ud INH 3 ml RQ6 PRN Administration Shortness of Breath Ascorbic Acid 500 mg 04/02/18 10:00 04/05/18 10:10 Vitamin C 500 Mg Tab PO Not Given BID NOLAN Calcium Acetate 1,334 mg 04/05/18 09:32 04/05/18 12:25 Phoslo PO Not Given TIDCC NOLAN Ergocalciferol 1 cap 04/04/18 10:45 04/04/18 12:11 Drisdol 50,000 Intl Units Cap PO 1 cap Q7D NOLAN Administration Ferrous Gluconate 324 mg 04/04/18 14:00 04/05/18 14:04 Fergon PO Not Given TID NOLAN Heparin Sodium (Porcine) 5,000 units 04/02/18 22:00 04/03/18 21:18 Heparin SC 5,000 units Q12 NOLAN Administration Linezolid 600 mg in 300 mls @ 200 mls/hr 04/01/18 22:00 04/05/18 10:07 Zyvox 600mg/300ml D5w IVPB 200 mls/hr Q12 NOLAN Administration Protocol Doxycycline Hyclate 100 mg/ 100 mls @ 100 mls/hr 04/02/18 13:00 04/05/18 12: 27 Sodium Chloride IVPB 100 mls/hr Q12H NOLAN Administration Protocol Dexmedetomidine HCl 200 mcg/ 50 mls @ 2.7 mls/hr 04/03/18 09:45 04/05/18 05: 00 Sodium Chloride IV Infused TITR NOLAN Titration Protocol 0.2 MCG/KG/HR Ampicillin 2 gm/ Sodium 100 mls @ 50 mls/hr 04/03/18 19:00 04/05/18 06:01 Chloride IVPB 50 mls/hr Q12H NOLAN Administration Protocol Dextrose 1,000 mls @ 40 mls/hr 04/05/18 08:00 04/05/18 08:00 Dextrose 10% In Water IV 40 mls/hr .Q24H NOLAN Administration Lorazepam 2 mg 04/01/18 22:32 04/01/18 22:46 Ativan IVP 2 mg Q6H PRN Administration Anxiety Multivitamins/Vitamin C 5 ml 04/03/18 10:15 04/05/18 10:09 Multi-Delyn Liquid PO Not Given DAILY NOLAN Pantoprazole Sodium 40 mg 04/02/18 10:00 04/05/18 10:08 Protonix Inj IVP 40 mg DAILY NOLAN Administration - Patient Studies Lab Studies: Microbiology Studies 04/03/18 20:22 Gram Stain - Final Leg - Left Wound Culture - Preliminary No growth. 04/03/18 19:30 Gram Stain - Final Leg - Right Wound Culture - Preliminary No growth. 04/02/18 08:53 Blood Culture - Preliminary Blood-Venous NO GROWTH AFTER 3 DAYS 04/02/18 08:53 Blood Culture - Preliminary Blood-Venous NO GROWTH AFTER 3 DAYS Lab Studies 04/05/18 04/05/18 04/05/18 Range/Units 11:33 06:15 06:15 WBC (4.8-10.8) K/uL RBC (3.80-5.20) Mil/uL Hgb (11.0-16.0) g/dL Hct (34.0-47.0) % MCV (81.0-99.0) fL MCH (27.0-31.0) pg MCHC (33.0-37.0) g/dL RDW (11.5-14.5) % Plt Count (130-400) K/uL MPV (7.2-11.7) fL Neut % (Auto) (50.0-75.0) % Lymph % (Auto) (20.0-40.0) % [place] % (Auto) (0.0-10.0) % Eos % (Auto) (0.0-4.0) % Baso % (Auto) (0.0-2.0) % Neut # (Auto) (1.8-7.0) K/uL Lymph # (Auto) (1.0-4.3) K/uL [place] # (Auto) (0.0-0.8) K/uL Eos # (Auto) (0.0-0.7) K/uL Baso # (Auto) (0.0-0.2) K/uL Neutrophils % (Manual) (50-75) % Band Neutrophils % (0-2) % Lymphocytes % (Manual) (20-40) % Monocytes % (Manual) (0-10) % Platelet Estimate (NORMAL) Hypochromasia (manual) Anisocytosis (manual) Retic Count (0.5-1.5) % Haptoglobin 346.1 H (30.0-200.0) mg/dL PT 11.2 (9.7-12.2) SECONDS INR 1.0 APTT 29 (21-34) SECONDS Fibrinogen 289 (200-400) mg/dL Fibrin Degrad Products Cancelled Fibrin Degrad Prod, Qt Cancelled D-Dimer, Quantitative > 5250 H (0-243) ng/mlDDU Puncture Site pCO2 (35-45) mm/Hg pO2 (80-100) mm/Hg HCO3 (21-28) mmol/L ABG pH (7.35-7.45) ABG Total CO2 (22-28) mmol/L ABG O2 Saturation (95-98) % ABG Base Excess (-2.0-3.0) mmol/L ABG Hemoglobin (11.7-17.4) g/dL ABG Carboxyhemoglobin (0.5-1.5) % POC ABG HHb (Measured) (0.0-5.0) % ABG Methemoglobin (0.0-3.0) % Jann Test A-a O2 Difference mm/Hg Respiratory Index Hgb O2 Saturation (95.0-98.0) % Vent Mode Mechanical Rate FiO2 % Tidal Volume PEEP Sodium (132-148) mmol/L Potassium (3.6-5.2) mmol/L Chloride (98-107) mmol/L Carbon Dioxide (22-30) mmol/L Anion Gap (10-20) BUN (7-17) mg/dL Creatinine (0.7-1.2) mg/dL Est GFR ( Amer) Est GFR (Non-Af Amer) POC Glucose (mg/dL) 115 H (65-110) mg/dL Random Glucose (65-105) mg/dL Calcium (8.6-10.4) mg/dl Phosphorus (2.5-4.5) mg/dL Magnesium (1.6-2.3) mg/dL Total Bilirubin (0.2-1.3) mg/dL AST (14-36) U/L ALT (9-52) U/L Alkaline Phosphatase (38-126) U/L Total Protein (6.3-8.3) g/dL Albumin (3.5-5.0) g/dL Globulin (2.2-3.9) gm/dL Albumin/Globulin Ratio (1.0-2.1) Carcinoembryonic Ag (0-3.0) ng/mL CA 19-9 Antigen (0-37) U/mL CA 125 Antigen (0-35) U/mL Beta HCG, Quant mIU/ML Complement C3 (88.0-165.0) mg/dL Complement C4 (14.0-44.0) mg/dL Tot Complement (CH50) (31-60) U/mL Tot Mcfall/Lambda Ratio (1.29-2.55) Mcfall Light Chain Anal (176-443) mg/dL Lambda Light Chain Anal (91-240) mg/dL 04/05/18 04/05/18 04/05/18 Range/Units 06:15 06:15 06:14 WBC 47.8 H* (4.8-10.8) K/uL RBC 3.60 L (3.80-5.20) Mil/uL Hgb 9.6 L D (11.0-16.0) g/dL Hct 28.5 L (34.0-47.0) % MCV 79.3 L D (81.0-99.0) fL MCH 26.8 L (27.0-31.0) pg MCHC 33.8 (33.0-37.0) g/dL RDW 23.3 H (11.5-14.5) % Plt Count 106 L D (130-400) K/uL MPV 8.8 (7.2-11.7) fL Neut % (Auto) 95.3 H (50.0-75.0) % Lymph % (Auto) 2.5 L (20.0-40.0) % [place] % (Auto) 2.0 (0.0-10.0) % Eos % (Auto) 0.0 (0.0-4.0) % Baso % (Auto) 0.2 (0.0-2.0) % Neut # (Auto) 45.6 H (1.8-7.0) K/uL Lymph # (Auto) 1.2 (1.0-4.3) K/uL [place] # (Auto) 1.0 H (0.0-0.8) K/uL Eos # (Auto) 0.0 (0.0-0.7) K/uL Baso # (Auto) 0.1 (0.0-0.2) K/uL Neutrophils % (Manual) 93 H (50-75) % Band Neutrophils % 2 (0-2) % Lymphocytes % (Manual) 3 L (20-40) % Monocytes % (Manual) 2 (0-10) % Platelet Estimate Slightly decreased L (NORMAL) Hypochromasia (manual) Slight Anisocytosis (manual) Moderate Retic Count 1.4 (0.5-1.5) % Haptoglobin (30.0-200.0) mg/dL PT (9.7-12.2) SECONDS INR APTT (21-34) SECONDS Fibrinogen (200-400) mg/dL Fibrin Degrad Products Fibrin Degrad Prod, Qt D-Dimer, Quantitative (0-243) ng/mlDDU Puncture Site pCO2 (35-45) mm/Hg pO2 (80-100) mm/Hg HCO3 (21-28) mmol/L ABG pH (7.35-7.45) ABG Total CO2 (22-28) mmol/L ABG O2 Saturation (95-98) % ABG Base Excess (-2.0-3.0) mmol/L ABG Hemoglobin (11.7-17.4) g/dL ABG Carboxyhemoglobin (0.5-1.5) % POC ABG HHb (Measured) (0.0-5.0) % ABG Methemoglobin (0.0-3.0) % Jann Test A-a O2 Difference mm/Hg Respiratory Index Hgb O2 Saturation (95.0-98.0) % Vent Mode Mechanical Rate FiO2 % Tidal Volume PEEP Sodium 133 (132-148) mmol/L Potassium 4.8 (3.6-5.2) mmol/L Chloride 97 L (98-107) mmol/L Carbon Dioxide 18 L (22-30) mmol/L Anion Gap 23 H (10-20) BUN 73 H (7-17) mg/dL Creatinine 3.0 H (0.7-1.2) mg/dL Est GFR ( Amer) 20 Est GFR (Non-Af Amer) 16 POC Glucose (mg/dL) (65-110) mg/dL Random Glucose 76 (65-105) mg/dL Calcium 7.7 L (8.6-10.4) mg/dl Phosphorus 6.7 H (2.5-4.5) mg/dL Magnesium 1.9 (1.6-2.3) mg/dL Total Bilirubin 0.7 (0.2-1.3) mg/dL AST 50 H (14-36) U/L ALT 69 H (9-52) U/L Alkaline Phosphatase 173 H D (38-126) U/L Total Protein 4.4 L (6.3-8.3) g/dL Albumin 2.0 L (3.5-5.0) g/dL Globulin 2.3 (2.2-3.9) gm/dL Albumin/Globulin Ratio 0.9 L (1.0-2.1) Carcinoembryonic Ag 5.7 H (0-3.0) ng/mL CA 19-9 Antigen 286 H (0-37) U/mL CA 125 Antigen 90.6 H (0-35) U/mL Beta HCG, Quant < 2.39 mIU/ML Complement C3 78.0 L (88.0-165.0) mg/dL Complement C4 18.1 (14.0-44.0) mg/dL Tot Complement (CH50) (31-60) U/mL Tot Mcfall/Lambda Ratio (1.29-2.55) Mcfall Light Chain Anal (176-443) mg/dL Lambda Light Chain Anal (91-240) mg/dL 04/05/18 04/05/18 04/04/18 Range/Units 04:29 04:25 23:53 WBC (4.8-10.8) K/uL RBC (3.80-5.20) Mil/uL Hgb (11.0-16.0) g/dL Hct (34.0-47.0) % MCV (81.0-99.0) fL MCH (27.0-31.0) pg MCHC (33.0-37.0) g/dL RDW (11.5-14.5) % Plt Count (130-400) K/uL MPV (7.2-11.7) fL Neut % (Auto) (50.0-75.0) % Lymph % (Auto) (20.0-40.0) % [place] % (Auto) (0.0-10.0) % Eos % (Auto) (0.0-4.0) % Baso % (Auto) (0.0-2.0) % Neut # (Auto) (1.8-7.0) K/uL Lymph # (Auto) (1.0-4.3) K/uL [place] # (Auto) (0.0-0.8) K/uL Eos # (Auto) (0.0-0.7) K/uL Baso # (Auto) (0.0-0.2) K/uL Neutrophils % (Manual) (50-75) % Band Neutrophils % (0-2) % Lymphocytes % (Manual) (20-40) % Monocytes % (Manual) (0-10) % Platelet Estimate (NORMAL) Hypochromasia (manual) Anisocytosis (manual) Retic Count (0.5-1.5) % Haptoglobin (30.0-200.0) mg/dL PT (9.7-12.2) SECONDS INR APTT (21-34) SECONDS Fibrinogen (200-400) mg/dL Fibrin Degrad Products Fibrin Degrad Prod, Qt D-Dimer, Quantitative (0-243) ng/mlDDU Puncture Site Rb pCO2 26 L (35-45) mm/Hg pO2 157 H (80-100) mm/Hg HCO3 23.9 (21-28) mmol/L ABG pH 7.51 H (7.35-7.45) ABG Total CO2 21.5 L (22-28) mmol/L ABG O2 Saturation 98.5 H (95-98) % ABG Base Excess -1.3 (-2.0-3.0) mmol/L ABG Hemoglobin 10.7 L (11.7-17.4) g/dL ABG Carboxyhemoglobin 1.1 (0.5-1.5) % POC ABG HHb (Measured) 1.5 (0.0-5.0) % ABG Methemoglobin 1.3 (0.0-3.0) % Jann Test Na A-a O2 Difference 96.0 mm/Hg Respiratory Index 0.6 Hgb O2 Saturation 96.0 (95.0-98.0) % Vent Mode Prvc Mechanical Rate 16 FiO2 40.0 % Tidal Volume 450 PEEP 5 Sodium (132-148) mmol/L Potassium (3.6-5.2) mmol/L Chloride (98-107) mmol/L Carbon Dioxide (22-30) mmol/L Anion Gap (10-20) BUN (7-17) mg/dL Creatinine (0.7-1.2) mg/dL Est GFR ( Amer) Est GFR (Non-Af Amer) POC Glucose (mg/dL) 90 110 (65-110) mg/dL Random Glucose (65-105) mg/dL Calcium (8.6-10.4) mg/dl Phosphorus (2.5-4.5) mg/dL Magnesium (1.6-2.3) mg/dL Total Bilirubin (0.2-1.3) mg/dL AST (14-36) U/L ALT (9-52) U/L Alkaline Phosphatase (38-126) U/L Total Protein (6.3-8.3) g/dL Albumin (3.5-5.0) g/dL Globulin (2.2-3.9) gm/dL Albumin/Globulin Ratio (1.0-2.1) Carcinoembryonic Ag (0-3.0) ng/mL CA 19-9 Antigen (0-37) U/mL CA 125 Antigen (0-35) U/mL Beta HCG, Quant mIU/ML Complement C3 (88.0-165.0) mg/dL Complement C4 (14.0-44.0) mg/dL Tot Complement (CH50) (31-60) U/mL Tot Mcfall/Lambda Ratio (1.29-2.55) Mcfall Light Chain Anal (176-443) mg/dL Lambda Light Chain Anal (91-240) mg/dL 04/03/18 04/02/18 Range/Units 06:33 08:41 WBC (4.8-10.8) K/uL RBC (3.80-5.20) Mil/uL Hgb (11.0-16.0) g/dL Hct (34.0-47.0) % MCV (81.0-99.0) fL MCH (27.0-31.0) pg MCHC (33.0-37.0) g/dL RDW (11.5-14.5) % Plt Count (130-400) K/uL MPV (7.2-11.7) fL Neut % (Auto) (50.0-75.0) % Lymph % (Auto) (20.0-40.0) % [place] % (Auto) (0.0-10.0) % Eos % (Auto) (0.0-4.0) % Baso % (Auto) (0.0-2.0) % Neut # (Auto) (1.8-7.0) K/uL Lymph # (Auto) (1.0-4.3) K/uL [place] # (Auto) (0.0-0.8) K/uL Eos # (Auto) (0.0-0.7) K/uL Baso # (Auto) (0.0-0.2) K/uL Neutrophils % (Manual) (50-75) % Band Neutrophils % (0-2) % Lymphocytes % (Manual) (20-40) % Monocytes % (Manual) (0-10) % Platelet Estimate (NORMAL) Hypochromasia (manual) Anisocytosis (manual) Retic Count (0.5-1.5) % Haptoglobin (30.0-200.0) mg/dL PT (9.7-12.2) SECONDS INR APTT (21-34) SECONDS Fibrinogen (200-400) mg/dL Fibrin Degrad Products Fibrin Degrad Prod, Qt D-Dimer, Quantitative (0-243) ng/mlDDU Puncture Site pCO2 (35-45) mm/Hg pO2 (80-100) mm/Hg HCO3 (21-28) mmol/L ABG pH (7.35-7.45) ABG Total CO2 (22-28) mmol/L ABG O2 Saturation (95-98) % ABG Base Excess (-2.0-3.0) mmol/L ABG Hemoglobin (11.7-17.4) g/dL ABG Carboxyhemoglobin (0.5-1.5) % POC ABG HHb (Measured) (0.0-5.0) % ABG Methemoglobin (0.0-3.0) % Jann Test A-a O2 Difference mm/Hg Respiratory Index Hgb O2 Saturation (95.0-98.0) % Vent Mode Mechanical Rate FiO2 % Tidal Volume PEEP Sodium (132-148) mmol/L Potassium (3.6-5.2) mmol/L Chloride (98-107) mmol/L Carbon Dioxide (22-30) mmol/L Anion Gap (10-20) BUN (7-17) mg/dL Creatinine (0.7-1.2) mg/dL Est GFR ( Amer) Est GFR (Non-Af Amer) POC Glucose (mg/dL) (65-110) mg/dL Random Glucose (65-105) mg/dL Calcium (8.6-10.4) mg/dl Phosphorus (2.5-4.5) mg/dL Magnesium (1.6-2.3) mg/dL Total Bilirubin (0.2-1.3) mg/dL AST (14-36) U/L ALT (9-52) U/L Alkaline Phosphatase (38-126) U/L Total Protein (6.3-8.3) g/dL Albumin (3.5-5.0) g/dL Globulin (2.2-3.9) gm/dL Albumin/Globulin Ratio (1.0-2.1) Carcinoembryonic Ag (0-3.0) ng/mL CA 19-9 Antigen (0-37) U/mL CA 125 Antigen (0-35) U/mL Beta HCG, Quant mIU/ML Complement C3 (88.0-165.0) mg/dL Complement C4 (14.0-44.0) mg/dL Tot Complement (CH50) 43 (31-60) U/mL Tot Mcfall/Lambda Ratio 1.46 (1.29-2.55) Mcfall Light Chain Anal 137 L (176-443) mg/dL Lambda Light Chain Anal 94 (91-240) mg/dL Laboratory Results - last 24 hr 04/02/18 04/03/18 04/04/18 08:41 06:33 23:53 WBC RBC Hgb Hct MCV MCH MCHC RDW Plt Count MPV Neut % (Auto) Lymph % (Auto) [place] % (Auto) Eos % (Auto) Baso % (Auto) Neut # (Auto) Lymph # (Auto) [place] # (Auto) Eos # (Auto) Baso # (Auto) Neutrophils % (Manual) Band Neutrophils % Lymphocytes % (Manual) Monocytes % (Manual) Platelet Estimate Hypochromasia (manual) Anisocytosis (manual) Retic Count Haptoglobin PT INR APTT Fibrinogen Fibrin Degrad Products Fibrin Degrad Prod, Qt D-Dimer, Quantitative Puncture Site pCO2 pO2 HCO3 ABG pH ABG Total CO2 ABG O2 Saturation ABG Base Excess ABG Hemoglobin ABG Carboxyhemoglobin POC ABG HHb (Measured) ABG Methemoglobin Jann Test A-a O2 Difference Respiratory Index Hgb O2 Saturation Vent Mode Mechanical Rate FiO2 Tidal Volume PEEP Sodium Potassium Chloride Carbon Dioxide Anion Gap BUN Creatinine Est GFR ( Amer) Est GFR (Non-Af Amer) POC Glucose (mg/dL) 110 Random Glucose Calcium Phosphorus Magnesium Total Bilirubin AST ALT Alkaline Phosphatase Total Protein Albumin Globulin Albumin/Globulin Ratio Carcinoembryonic Ag CA 19-9 Antigen CA 125 Antigen Beta HCG, Quant Complement C3 Complement C4 Tot Complement (CH50) 43 Tot Mcfall/Lambda Ratio 1.46 Mcfall Light Chain Anal 137 L Lambda Light Chain Anal 94 04/05/18 04/05/18 04/05/18 04:25 04:29 06:14 WBC 47.8 H* RBC 3.60 L Hgb 9.6 L D Hct 28.5 L MCV 79.3 L D MCH 26.8 L MCHC 33.8 RDW 23.3 H Plt Count 106 L D MPV 8.8 Neut % (Auto) 95.3 H Lymph % (Auto) 2.5 L [place] % (Auto) 2.0 Eos % (Auto) 0.0 Baso % (Auto) 0.2 Neut # (Auto) 45.6 H Lymph # (Auto) 1.2 [place] # (Auto) 1.0 H Eos # (Auto) 0.0 Baso # (Auto) 0.1 Neutrophils % (Manual) 93 H Band Neutrophils % 2 Lymphocytes % (Manual) 3 L Monocytes % (Manual) 2 Platelet Estimate Slightly decreased L Hypochromasia (manual) Slight Anisocytosis (manual) Moderate Retic Count 1.4 Haptoglobin PT INR APTT Fibrinogen Fibrin Degrad Products Fibrin Degrad Prod, Qt D-Dimer, Quantitative Puncture Site Rb pCO2 26 L pO2 157 H HCO3 23.9 ABG pH 7.51 H ABG Total CO2 21.5 L ABG O2 Saturation 98.5 H ABG Base Excess -1.3 ABG Hemoglobin 10.7 L ABG Carboxyhemoglobin 1.1 POC ABG HHb (Measured) 1.5 ABG Methemoglobin 1.3 Jann Test Na A-a O2 Difference 96.0 Respiratory Index 0.6 Hgb O2 Saturation 96.0 Vent Mode Prvc Mechanical Rate 16 FiO2 40.0 Tidal Volume 450 PEEP 5 Sodium Potassium Chloride Carbon Dioxide Anion Gap BUN Creatinine Est GFR ( Amer) Est GFR (Non-Af Amer) POC Glucose (mg/dL) 90 Random Glucose Calcium Phosphorus Magnesium Total Bilirubin AST ALT Alkaline Phosphatase Total Protein Albumin Globulin Albumin/Globulin Ratio Carcinoembryonic Ag CA 19-9 Antigen CA 125 Antigen Beta HCG, Quant Complement C3 Complement C4 Tot Complement (CH50) Tot Mcfall/Lambda Ratio Mcfall Light Chain Anal Lambda Light Chain Anal 04/05/18 04/05/18 04/05/18 06:15 06:15 06:15 WBC RBC Hgb Hct MCV MCH MCHC RDW Plt Count MPV Neut % (Auto) Lymph % (Auto) [place] % (Auto) Eos % (Auto) Baso % (Auto) Neut # (Auto) Lymph # (Auto) [place] # (Auto) Eos # (Auto) Baso # (Auto) Neutrophils % (Manual) Band Neutrophils % Lymphocytes % (Manual) Monocytes % (Manual) Platelet Estimate Hypochromasia (manual) Anisocytosis (manual) Retic Count Haptoglobin PT 11.2 INR 1.0 APTT 29 Fibrinogen 289 Fibrin Degrad Products Cancelled Fibrin Degrad Prod, Qt Cancelled D-Dimer, Quantitative > 5250 H Puncture Site pCO2 pO2 HCO3 ABG pH ABG Total CO2 ABG O2 Saturation ABG Base Excess ABG Hemoglobin ABG Carboxyhemoglobin POC ABG HHb (Measured) ABG Methemoglobin Jann Test A-a O2 Difference Respiratory Index Hgb O2 Saturation Vent Mode Mechanical Rate FiO2 Tidal Volume PEEP Sodium 133 Potassium 4.8 Chloride 97 L Carbon Dioxide 18 L Anion Gap 23 H BUN 73 H Creatinine 3.0 H Est GFR ( Amer) 20 Est GFR (Non-Af Amer) 16 POC Glucose (mg/dL) Random Glucose 76 Calcium 7.7 L Phosphorus 6.7 H Magnesium 1.9 Total Bilirubin 0.7 AST 50 H ALT 69 H Alkaline Phosphatase 173 H D Total Protein 4.4 L Albumin 2.0 L Globulin 2.3 Albumin/Globulin Ratio 0.9 L Carcinoembryonic Ag 5.7 H CA 19-9 Antigen 286 H CA 125 Antigen 90.6 H Beta HCG, Quant < 2.39 Complement C3 78.0 L Complement C4 18.1 Tot Complement (CH50) Tot Mcfall/Lambda Ratio Mcfall Light Chain Anal Lambda Light Chain Anal 04/05/18 04/05/18 06:15 11:33 WBC RBC Hgb Hct MCV MCH MCHC RDW Plt Count MPV Neut % (Auto) Lymph % (Auto) [place] % (Auto) Eos % (Auto) Baso % (Auto) Neut # (Auto) Lymph # (Auto) [place] # (Auto) Eos # (Auto) Baso # (Auto) Neutrophils % (Manual) Band Neutrophils % Lymphocytes % (Manual) Monocytes % (Manual) Platelet Estimate Hypochromasia (manual) Anisocytosis (manual) Retic Count Haptoglobin 346.1 H PT INR APTT Fibrinogen Fibrin Degrad Products Fibrin Degrad Prod, Qt D-Dimer, Quantitative Puncture Site pCO2 pO2 HCO3 ABG pH ABG Total CO2 ABG O2 Saturation ABG Base Excess ABG Hemoglobin ABG Carboxyhemoglobin POC ABG HHb (Measured) ABG Methemoglobin Jann Test A-a O2 Difference Respiratory Index Hgb O2 Saturation Vent Mode Mechanical Rate FiO2 Tidal Volume PEEP Sodium Potassium Chloride Carbon Dioxide Anion Gap BUN Creatinine Est GFR ( Amer) Est GFR (Non-Af Amer) POC Glucose (mg/dL) 115 H Random Glucose Calcium Phosphorus Magnesium Total Bilirubin AST ALT Alkaline Phosphatase Total Protein Albumin Globulin Albumin/Globulin Ratio Carcinoembryonic Ag CA 19-9 Antigen CA 125 Antigen Beta HCG, Quant Complement C3 Complement C4 Tot Complement (CH50) Tot Mcfall/Lambda Ratio Mcfall Light Chain Anal Lambda Light Chain Anal Critical Care Progress Note - Nutrition Nutrition: Nutrition Category Date Time Status NPO Diet [DIET] Diets 04/05/18 Breakfast Active Attending/Attestation - Attestation I have personally seen and examined this patient.: Yes I have fully participated in the care of the patient.: Yes I have reviewed all pertinent clinical information: Yes Notes (Text): 04/05/18 16:29 patient seen and examined in the intensive care unit. Awake and responsive on ventilatory support FiO2 40% For hemodialysis today Status post permacath placement Continue IV antibiotics possibly debridement Of leg wound when more stable continue feeding Elevated tumor markers noted
[2018-04-05] MEDS ORDERED: Midazolam 2 MG/2 ML VIAL ONE (14:23)
--- NOTE | 2018-04-05 15:08 | PCM.SURG1 ---
Surgeon's Initial Post Op Note - Surgeon's Notes Surgeon: CAL Tub Puller: 0 Type of Anesthesia: General Endo Anesthesia Administered By: MOISE Pre-Operative Diagnosis: RENAL FAILURE Operative Findings: CATH TO SVC VIA RIGHT JUGULAR Post-Operative Diagnosis: SAME Operation Performed: PERMACATH RIGHT JUGULAR WITH US GUIDANCE/ MICROPUNCTURE/ AND FLUORO Specimen/Specimens Removed: 0 Estimated Blood Loss: EBL {In ML}: 20 Blood Products Given: N/A Drains Used: No Drains Post-Op Condition: Good Date of Surgery/Procedure: 04/05/18 Time of Surgery/Procedure: 15:08
--- NOTE | 2018-04-05 16:10 | CP.PCM.PN ---
Subjective - Date & Time of Evaluation Date of Evaluation: 04/05/18 Time of Evaluation: 16:08 - Subjective Subjective: Nephrology Consultation Note: Assessment: critical Acute Kidney Injury (N17.9) ? 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 appreciate vascular surgery for permacath placement. maintain hemodyanamics stable. Patient not on ACEI/ARB due to LULA Monitor Input/Output, daily weights and renal function with basic metabolic panel pt s/p blood transfusion started phos binders, nephrovite, vit D, iron supplements urology consult for b/l hydro appreciated heme, ID eval appreciated can d./c femoral dialysis access so far Hep B/C and HIV neg. renal sono: normal echogenicity but pt not stable to tolerate invasive procedure such as kidney biopsy. Vasculitis panel sent. Dose meds/antibiotics for reduced GFR. Avoid fleets enema/magnesium based laxatives. Avoid nephrotoxins/NSAIDs Glycemic control Further work up/management as per primary team Thanks for allowing me to participate in care of your patient. Will follow patient with you. Please call if any Qs. had d/w ICU team and family bedside Dr Jose G Clancy Office: [phone] HPI: Pt is a 52 F without known medical hx, lives in [place] presented [place] as found to have unresponsiveness and here for further eval found to have severe renal failure, anemia and high WBC count renal consult for LULA eval Denies OTC/herbal meds or NSAIDs No recent iodinated contrast exposure. ROS: unable. intubated 04/01/18 Physical Examination: General Appearance: frail, chronically debilitated and ill appearing, cachexic Vitals reviewed and noted as below Head; Atraumatic, normocephalic ENT: orally intubated EYES: Pupils are equal, round and reactive to light accommodation. Eye muscles and extraocular movement intact. Sclera is anicteric. Neck; supple no lymphadenopathy, no thyromegaly or bruit Lungs: Increased respiratory rate/effort. Breath sounds bilateral equal and clear anteriorly Heart: Normal rate. s1s2 normal. No rub or gallop. Extremities: 1-2+ edema. No varicose veins. has wounds in lower extremities Neurological: Patient is sedated Skin: Warm and dry. Normal turgor. No rash. Palpitation: Normal elasticity for age. has echymoses over lower torso Abdomen: Abdomen is soft. Bowel sounds +. There is no abdominal tenderness, no guarding/rigidity no organomegaly. globular non reducible mass in lower abdomen noted Psych: unable MSK: no joint tenderness or swelling. Digits and nails normal, no deformity : kidney or bladder not palpable. has sawyer Access: permacath Labs/imaging reviewed. Past medical history, past surgical history, family history, social history, allergy reviewed and noted as below Family hx: no hx of CKD. Rest non-contributory Objective - Vital Signs/Intake and Output Vital Signs (last 24 hours): Temp Pulse Resp BP Pulse Ox 98.5 F 97 H 20 115/75 100 04/05/18 12:00 04/05/18 14:00 04/05/18 14:00 04/05/18 13:57 04/05/18 14:00 Intake and Output: 04/05/18 04/05/18 06:59 18:59 Intake Total 807.4 1040 Balance 807.4 1040 - Medications Medications: Current Medications Albumin Human (Albumin Human 25% (12.5 Gm/50 Ml)) 12.5 gm IV Q12 [facility] Last Admin: 04/05/18 09:00 Dose: 12.5 gm Albuterol/Ipratropium (Duoneb 3 Mg/0.5 Mg (3 Ml) Ud) 3 ml INH RQ6 PRN PRN Reason: Shortness of Breath Last Admin: 04/03/18 13:37 Dose: 3 ml Ascorbic Acid (Vitamin C 500 Mg Tab) 500 mg PO BID [facility] Last Admin: 04/05/18 10:10 Dose: Not Given Calcium Acetate (Phoslo) 1,334 mg PO TIDCC [facility] Last Admin: 04/05/18 12:25 Dose: Not Given Ergocalciferol (Drisdol 50,000 Intl Units Cap) 1 cap PO Q7D [facility] Last Admin: 04/04/18 12:11 Dose: 1 cap Ferrous Gluconate (Fergon) 324 mg PO TID [facility] Last Admin: 04/05/18 14:04 Dose: Not Given Heparin Sodium (Porcine) (Heparin) 5,000 units SC Q12 [facility] Last Admin: 04/03/18 21:18 Dose: 5,000 units Linezolid (Zyvox 600mg/300ml D5w) 600 mg in 300 mls @ 200 mls/hr IVPB Q12 [facility] PRN Reason: Protocol Last Admin: 04/05/18 10:07 Dose: 200 mls/hr Doxycycline Hyclate 100 mg/ (Sodium Chloride) 100 mls @ 100 mls/hr IVPB Q12H [facility] PRN Reason: Protocol Last Admin: 04/05/18 12:27 Dose: 100 mls/hr Dexmedetomidine HCl 200 mcg/ (Sodium Chloride) 50 mls @ 2.7 mls/hr IV TITR [facility] ; 0.2 MCG/KG/HR PRN Reason: Protocol Last Titration: 04/05/18 05:00 Dose: Infused Ampicillin 2 gm/ Sodium (Chloride) 100 mls @ 50 mls/hr IVPB Q12H [facility] PRN Reason: Protocol Last Admin: 04/05/18 06:01 Dose: 50 mls/hr Dextrose (Dextrose 10% In Water) 1,000 mls @ 40 mls/hr IV .Q24H [facility] Last Admin: 04/05/18 08:00 Dose: 40 mls/hr Lorazepam (Ativan) 2 mg IVP Q6H PRN PRN Reason: Anxiety Last Admin: 04/01/18 22:46 Dose: 2 mg Multivitamins/Vitamin C (Multi-Delyn Liquid) 5 ml PO DAILY [facility] Last Admin: 04/05/18 10:09 Dose: Not Given Pantoprazole Sodium (Protonix Inj) 40 mg IVP DAILY [facility] Last Admin: 04/05/18 10:08 Dose: 40 mg - Labs Labs: 04/05/18 06:14 04/05/18 06:15 PT 11.2 SECONDS (9.7-12.2) 04/05/18 06:15 INR 1.0 04/05/18 06:15 APTT 29 SECONDS (21-34) 04/05/18 06:15
--- NOTE | 2018-04-05 16:37 | RAD ---
HISTORY: PERMACATH COMPARISON: 04/05/2018 at 9:49 a.m. FINDINGS: LUNGS: No active pulmonary disease. PLEURA: No significant pleural effusion identified, no pneumothorax apparent. CARDIOVASCULAR: Normal heart size. Right central venous dialysis catheter.l endotracheal tube situated with tip approximately 1.8 cm above tracheal aysha. Nasogastric tube extends to the upper abdomen. OSSEOUS STRUCTURES: No significant abnormalities. VISUALIZED UPPER ABDOMEN: Normal. OTHER FINDINGS: None. IMPRESSION: New central venous dialysis catheter. ET tube and NG tube grossly unchanged. No infiltrate.
--- NOTE | 2018-04-05 16:59 | RAD ---
PROCEDURE: Intraoperative Fluoroscopy. HISTORY: RENAL FAILURE FINDINGS: Fluoroscopic assistance was provided for right central venous catheter placement. Please refer to the operative report from THOMPSON Redd.
[2018-04-06 00:04] LABS: BCR-ABL SOURCE NOT GIVEN; P190 BCR-ABL1 NOT DETECTED; P210 BCR-ABL1 NOT DETECTED
--- NOTE | 2018-04-06 02:18 | OP ---
PROCEDURE DATE: 04/05/2018 PREOPERATIVE DIAGNOSIS: Renal failure. POSTOPERATIVE DIAGNOSIS: Renal failure. PROCEDURE CARRIED OUT: Placement of Perm-A-Cath, right jugular vein with C-arm fluoroscopy, ultrasound-guided puncture and micropuncture technique. SURGEON: Saleem Moore Jr., MD CD REACTOR OPERATOR HEAD: None. ANESTHESIOLOGIST: Mr. Alvares. TYPE OF ANESTHESIA: General. INDICATIONS: A 52-year-old woman with renal insufficiency and multiple other medical problems, seen now for evaluation of placement of her Perm-A-Cath. OPERATIVE FINDINGS: Using micropuncture technique, the right internal jugular vein is punctured, and under fluoroscopic control, a guidewire was advanced centrally. This was exchanged to an 0.035 wire. A sheath dilator was passed over this. Catheter originated on the right chest wall, went to the jugular vein and terminated to superior vena cava. There is an excellent flow in both directions. Procedure was then terminated after secured to the skin. Blood loss for the procedure was 20 mL. Operation carried out was Perm-A-Cath to right jugular vein with C-arm fluoroscopy, ultrasound-guided puncture and micropuncture technique. Ultrasound image of the neck shows vein was 11 mm in diameter with normal compressibility and no evidence of thrombosis. Saleem Moore Jr., MD
[2018-04-06 05:49] LABS: ARTERIAL BLOOD GAS HCO3 26.3 mmol/L (21-28); ARTERIAL BLOOD GAS HEMOGLOBIN 8.3 g/dL (11.7-17.4); ARTERIAL BLOOD GAS O2 SAT 98.5 % (95-98); ARTERIAL BLOOD GAS PCO2 30 mm/Hg (35-45); ARTERIAL BLOOD GAS PH 7.52 (7.35-7.45); ARTERIAL BLOOD GAS PO2 114 mm/Hg (80-100); ARTERIAL BLOOD GAS TCO2 25.4 mmol/L (22-28)
[2018-04-06] MEDS: AMPicillin 2 GM in Sodium Chloride 100 ML IVPB SCH ×3 (06:00→21:00)
[2018-04-06 06:37] LABS: BASO % 0.1 % (0.0-2.0); EOS # 0.1 K/uL (0.0-0.7); EOS % 0.2 % (0.0-4.0); LYMPH # 0.7 K/uL (1.0-4.3); LYMPH % 2.3 % (20.0-40.0); MEAN CELL VOLUME 80.6 fL (81.0-99.0); MEAN CORPUSCULAR HEMOGLOBIN 27.3 pg (27.0-31.0); MEAN CORPUSCULAR HGB CONC 33.9 g/dL (33.0-37.0); MEAN PLATELET VOLUME 7.9 fL (7.2-11.7); MONO # 0.7 K/uL (0.0-0.8); MONO % 2.3 % (0.0-10.0); NEUT # 30.2 K/uL (1.8-7.0); NEUT % 95.1 % (50.0-75.0); NRBC % 0.1 % (0.0-2.0); PLATELET COUNT 174 K/uL (130-400); RBC 2.55 Mil/uL (3.80-5.20); RED CELL DISTRIBUTION WIDTH 22.1 % (11.5-14.5); WHITE BLOOD COUNT 31.8 K/uL (4.8-10.8)
--- NOTE | 2018-04-06 06:53 | PN ---
DATE: 04/05/2018____ SUBJECTIVE: The patient is afebrile. She was intubated. When I saw her this afternoon, she was waiting to have her catheter changed. She was awake. She asked me if she is having urine and she said about peeing. She is not peeing, and we have to tell her that she has a kidney failure at this time, and she is on dialysis, and they will be changing the catheter. PHYSICAL EXAMINATION: HEENT: Head is atraumatic, normocephalic. NECK: Supple. LUNGS: Clear. HEART: S1, S2 is regular. EXTREMITIES: Upper arms had ecchymosis. She had a groin catheter at that time which was going to be changed, which was changed; I see here. She did have some hypotension. This looks like before catheter, and the patient continues to have bilateral lower extremity, moderate areas of skin bullae, almost looks like purpura fulminans. LABORATORY DATA: Her white count still remains very high. White count is 47.8, hemoglobin 9.6, hematocrit 28.5, platelet count 106. Her bands are 2, neutrophils are 93, and chemistry shows creatinine remains at 3, sodium is 133, potassium 4.8, chlorides are 97, CO2 is 18, anion gap is 23, BUN 73, and the patient's CA-125 is high, CA 19-9 is high. CEA is high, all are high, and albumin is 2 and blood cultures were Listeria, and we have done. They do not provide sensitivity but the [facility] called me that it is sensitive to ampicillin with the inhibition of 24, and with gentamicin inhibition of 25, but with the Bactrim was 16, so it little less with the sensitive to Bactrim but all three drugs can be used. I am not using Bactrim at this time as there is renal failure, and gentamicin, we are giving off and on. Cultures have been negative but since the white count remains high and her skin condition is very poor in the lower extremities, we will wait to see what can be done. We will follow. Festus Camarena MD [facility] # [id number] MTDD
[2018-04-06 06:57] LABS: ALB/GLOB RATIO 0.5 (1.0-2.1); ALBUMIN 1.8 g/dL (3.5-5.0); CALCIUM 6.3 mg/dl (8.6-10.4)
--- NOTE | 2018-04-06 08:24 | RAD ---
Chest x-ray single frontal view History: Ventilated. Comparison: 04/05/2018 Findings: Endotracheal tube approximately 1.2 centimeters from the aysha. Other lines and tubes in stable position. Mall. Multiple overlying external wires and tubing. Mild venous congestion. Right hilar prominence. Small left pleural effusion with associated left basilar airspace consolidation/opacity. Degenerative changes in the spine and shoulders. Impression: Endotracheal tube approximately 1.2 centimeters from the aysha. Other lines and tubes in stable position. Mall. Multiple overlying external wires and tubing. Mild venous congestion. Right hilar prominence. Small left pleural effusion with associated left basilar airspace consolidation/opacity.
--- NOTE | 2018-04-06 08:32 | CP.PCM.PN ---
Subjective - Date & Time of Evaluation Date of Evaluation: 04/05/18 Time of Evaluation: 19:00 - Subjective Subjective: pt seen and examined, sp OR, no chest pain, dizziness, sob, afebrile, imrpoving Objective - Vital Signs/Intake and Output Vital Signs (last 24 hours): Temp Pulse Resp BP Pulse Ox 97.8 F 97 H 18 101/59 L 99 04/06/18 04:00 04/06/18 06:00 04/06/18 06:00 04/06/18 05:36 04/06/18 06:00 Intake and Output: 04/06/18 04/06/18 06:59 18:59 Intake Total 1140 Output Total 0 Balance 1140 - Medications Medications: Current Medications Albumin Human (Albumin Human 25% (12.5 Gm/50 Ml)) 12.5 gm IV Q12 [facility] Last Admin: 04/05/18 21:30 Dose: 12.5 gm Albuterol/Ipratropium (Duoneb 3 Mg/0.5 Mg (3 Ml) Ud) 3 ml INH RQ6 PRN PRN Reason: Shortness of Breath Last Admin: 04/03/18 13:37 Dose: 3 ml Ascorbic Acid (Vitamin C 500 Mg Tab) 500 mg PO BID [facility] Last Admin: 04/05/18 17:27 Dose: 500 mg Calcium Acetate (Phoslo) 1,334 mg PO TIDCC [facility] Last Admin: 04/06/18 07:39 Dose: Not Given Ergocalciferol (Drisdol 50,000 Intl Units Cap) 1 cap PO Q7D [facility] Last Admin: 04/04/18 12:11 Dose: 1 cap Ferrous Gluconate (Fergon) 324 mg PO TID [facility] Last Admin: 04/05/18 17:25 Dose: 324 mg Heparin Sodium (Porcine) (Heparin) 5,000 units SC Q12 [facility] Last Admin: 04/03/18 21:18 Dose: 5,000 units Linezolid (Zyvox 600mg/300ml D5w) 600 mg in 300 mls @ 200 mls/hr IVPB Q12 [facility] PRN Reason: Protocol Last Admin: 04/05/18 21:30 Dose: 200 mls/hr Doxycycline Hyclate 100 mg/ (Sodium Chloride) 100 mls @ 100 mls/hr IVPB Q12H [facility] PRN Reason: Protocol Last Admin: 04/06/18 00:00 Dose: 100 mls/hr Dexmedetomidine HCl 200 mcg/ (Sodium Chloride) 50 mls @ 2.7 mls/hr IV TITR [facility] ; 0.2 MCG/KG/HR PRN Reason: Protocol Last Titration: 04/05/18 05:00 Dose: Infused Ampicillin 2 gm/ Sodium (Chloride) 100 mls @ 50 mls/hr IVPB Q12H [facility] PRN Reason: Protocol Last Admin: 04/06/18 06:00 Dose: 50 mls/hr Dextrose (Dextrose 10% In Water) 1,000 mls @ 40 mls/hr IV .Q24H [facility] Last Admin: 04/06/18 07:38 Dose: 40 mls/hr Lorazepam (Ativan) 2 mg IVP Q6H PRN PRN Reason: Anxiety Last Admin: 04/01/18 22:46 Dose: 2 mg Multivitamins/Vitamin C (Multi-Delyn Liquid) 5 ml PO DAILY [facility] Last Admin: 04/05/18 10:09 Dose: Not Given Pantoprazole Sodium (Protonix Inj) 40 mg IVP DAILY [facility] Last Admin: 04/05/18 10:08 Dose: 40 mg - Labs Labs: 04/06/18 06:29 04/06/18 06:31 PT 11.2 SECONDS (9.7-12.2) 04/05/18 06:15 INR 1.0 04/05/18 06:15 APTT 29 SECONDS (21-34) 04/05/18 06:15 Assessment and Plan (1) Coagulopathy Status: Acute (2) Altered mental status Status: Acute (3) Myoglobinuria Status: Acute (4) Renal failure Status: Acute
[2018-04-06] MEDS: Linezolid 600 mg in D5W 300 ml 600 MG/300 ML BAG IVPB SCH ×2 (09:05→21:30)
[2018-04-06] MEDS: Albumin Human 25% (12.5 gm/50 ml) IV SCH (09:05)
[2018-04-06 09:21] LABS: BANDS 1 % (0-2); LYMPHOCYTE 5 % (20-40); MONOCYTE 3 % (0-10); NEUTROPHIL 91 % (50-75); TOTAL CELLS COUNTED 100
[2018-04-06 09:24] LABS: ANISOCYTOSIS SLIGHT; HYPOCHROMIC SLIGHT; PLATELET ESTIMATE NORMAL (NORMAL)
[2018-04-06 09:26] LABS: POLYCHROMIC SLIGHT
[2018-04-06] MEDS: Multiple Vitamins Oral Solution PO SCH (09:28)
[2018-04-06] MEDS ORDERED: Magnesium Sulfate 1 gm in D5W 1 GM/100 ML BAG IVPB ONE (09:51)
[2018-04-06] MEDS ORDERED: AMPicillin 2 GM in Sodium Chloride 100 ML IVPB SCH ×2 (10:00→11:00)
[2018-04-06] MEDS ORDERED: Silver Sulfadiazine 1% Cream (20 gm) ONE ×2 (10:42→11:07)
--- NOTE | 2018-04-06 11:38 | PN ---
DATE: 04/06/2018 LOCATION: ICU 6 SUBJECTIVE: This is a 52-year-old female seen and examined early this morning, appears to be somewhat more alert and oriented, trying to follow simple commands on and off. NG tube is still in place, with reported ulceration of the abdomen and both lower extremities of unclear etiology. The entire chart is reviewed including, but not limited to, the most recent lab and radiology study results, current and previous medication list, current and previous medical events. The patient was initially seen for GI consultation as requested by Dr. Carlin Hair on 04/05/2018. Today's labs showed leukocytosis of 31.8, hemoglobin 7.0, hematocrit 20.5, awaiting more blood transfusion, with abnormal ABGs, still intubated. Potassium 3.0, CO2 content 21 indicative of metabolic acidosis, BUN of 41, creatinine of 1.8, on hemodialysis. Calcium 6.3, magnesium 1.5, total bilirubin 1.6 with normal AST, but ALT 55, with albumin 1.8 only. CEA ordered by myself yesterday was 5.7, CA 19-9 was 286 and CA 125 of 90.6, all excessively elevated. Most recent chest x-ray done today showed mild venous congestion, with small left pleural effusion, with possible pneumonia. G- tube is in place. PHYSICAL EXAMINATION: GENERAL: A 52-year-old female. VITAL SIGNS: Afebrile with pulse of 98, blood pressure of 110/64. HEENT: Showed pale, dry oral mucous membranes. Nonicteric sclerae. Patient is intubated. LUNGS: Scattered crepitation with excessive decrease of air entry bilaterally. HEART: Positive S1 and S2 with increased rate. ABDOMEN: Soft, with slight distention with superficial multiple ulcerations extended to the lower extremities. No mass or organomegaly. No rebound tenderness or guarding. IMPRESSION: 1. Malnutrition, nasogastric tube feeding. 2. Anemia, the possibility of gastrointestinal blood loss, upper versus lower, was raised versus anemia secondary to chronic disease including chronic renal failure, the patient is still on hemodialysis. 3. Electrolyte imbalance secondary to above. 4. Acute respiratory failure, on intubation, with recent history of rhabdomyolysis. 5. Septicemia with Listeria infection, on antibiotics. SUGGESTIONS: 1. Agree with your plan. 2. The patient may need PEG insertion while she is intubated and only when she is more stable clinically. Further recommendation to follow. Salinas Miles MD
--- NOTE | 2018-04-06 12:12 | PCM.SURG1 ---
Surgeon's Initial Post Op Note - Surgeon's Notes Surgeon: Dr. Moore Hat Forming Machine Operator: PGY1, Edson OMS3 Pre-Operative Diagnosis: bilateral LE nectrotic tissue Operative Findings: Necrotic skin, subcutaneous tissue, and muscle. for details see op note Post-Operative Diagnosis: as above Operation Performed: sharp debridement and versajet of bilateral lower extremity necrotic skin, subcutaneous tissue, and muscle Specimen/Specimens Removed: lower extremity Estimated Blood Loss: EBL {In ML}: 50 Date of Surgery/Procedure: 04/06/18 Time of Surgery/Procedure: 11:30
--- NOTE | 2018-04-06 12:33 | CP.PCM.PN ---
Subjective - Date & Time of Evaluation Date of Evaluation: 04/06/18 Time of Evaluation: 12:32 - Subjective Subjective: Nephrology Consultation Note: Assessment: critical Anuric Acute Kidney Injury (N17.9) ? 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 appreciate vascular surgery for permacath placement. maintain hemodyanamics stable. Patient not on ACEI/ARB due to LULA Monitor Input/Output, daily weights and renal function with basic metabolic panel pt s/p blood transfusion started phos binders, nephrovite, vit D, iron supplements urology consult for b/l hydro appreciated heme, ID eval appreciated can d./c femoral dialysis access from renal perspective supplement lytes as needed so far Hep B/C and HIV neg. renal sono: normal echogenicity but pt not stable to tolerate invasive procedure such as kidney biopsy. Vasculitis panel sent. Dose meds/antibiotics for reduced GFR. Avoid fleets enema/magnesium based laxatives. Avoid nephrotoxins/NSAIDs Glycemic control Further work up/management as per primary team Thanks for allowing me to participate in care of your patient. Will follow patient with you. Please call if any Qs. had d/w ICU team and family bedside Dr Jose G Clancy Office: [phone] HPI: Pt is a 52 F without known medical hx, lives in [place] presented from cruise [place] as found to have unresponsiveness and here for further eval found to have severe renal failure, anemia and high WBC count renal consult for LULA eval Denies OTC/herbal meds or NSAIDs No recent iodinated contrast exposure. ROS: unable. intubated 04/01/18. no UOP as per nursing staff Physical Examination: General Appearance: frail, chronically debilitated and ill appearing, cachexic Vitals reviewed and noted as below Head; Atraumatic, normocephalic ENT: orally intubated EYES: Pupils are equal, round and reactive to light accommodation. Eye muscles and extraocular movement intact. Sclera is anicteric. Neck; supple no lymphadenopathy, no thyromegaly or bruit Lungs: normal respiratory rate/effort. Breath sounds bilateral equal and clear anteriorly Heart: Normal rate. s1s2 normal. No rub or gallop. Extremities: 1-2+ edema. No varicose veins. has wounds in lower extremities and dressed s/p debridement Neurological: Patient is sedated Skin: Warm and dry. Normal turgor. No rash. Palpitation: Normal elasticity for age. has echymoses over lower torso Abdomen: Abdomen is soft. Bowel sounds +. There is no abdominal tenderness, no guarding/rigidity no organomegaly. globular non reducible mass in lower abdomen noted Psych: unable MSK: no joint tenderness or swelling. Digits and nails normal, no deformity : kidney or bladder not palpable. has sawyer Access: permacath Labs/imaging reviewed. Past medical history, past surgical history, family history, social history, allergy reviewed and noted as below Family hx: no hx of CKD. Rest non-contributory Objective - Vital Signs/Intake and Output Vital Signs (last 24 hours): Temp Pulse Resp BP Pulse Ox 98.7 F 102 H 14 98/60 L 100 04/06/18 12:05 04/06/18 12:05 04/06/18 12:05 04/06/18 12:05 04/06/18 10:00 Intake and Output: 04/06/18 04/06/18 06:59 18:59 Intake Total 1140 1165 Output Total 0 350 Balance 1140 815 - Medications Medications: Current Medications Albumin Human (Albumin Human 25% (12.5 Gm/50 Ml)) 12.5 gm IV Q12 [facility] Last Admin: 04/06/18 09:05 Dose: 12.5 gm Albuterol/Ipratropium (Duoneb 3 Mg/0.5 Mg (3 Ml) Ud) 3 ml INH RQ6 PRN PRN Reason: Shortness of Breath Last Admin: 04/03/18 13:37 Dose: 3 ml Ascorbic Acid (Vitamin C 500 Mg Tab) 500 mg PO BID [facility] Last Admin: 04/06/18 09:28 Dose: Not Given Calcium Acetate (Phoslo) 1,334 mg PO TIDCC [facility] Last Admin: 04/06/18 07:39 Dose: Not Given Ergocalciferol (Drisdol 50,000 Intl Units Cap) 1 cap PO Q7D [facility] Last Admin: 04/04/18 12:11 Dose: 1 cap Ferrous Gluconate (Fergon) 324 mg PO TID [facility] Last Admin: 04/06/18 09:28 Dose: Not Given Heparin Sodium (Porcine) (Heparin) 5,000 units SC Q12 [facility] Last Admin: 04/03/18 21:18 Dose: 5,000 units Linezolid (Zyvox 600mg/300ml D5w) 600 mg in 300 mls @ 200 mls/hr IVPB Q12 [facility] PRN Reason: Protocol Last Admin: 04/06/18 09:05 Dose: 200 mls/hr Doxycycline Hyclate 100 mg/ (Sodium Chloride) 100 mls @ 100 mls/hr IVPB Q12H [facility] PRN Reason: Protocol Last Admin: 04/06/18 00:00 Dose: 100 mls/hr Dexmedetomidine HCl 200 mcg/ (Sodium Chloride) 50 mls @ 2.7 mls/hr IV TITR [facility] ; 0.2 MCG/KG/HR PRN Reason: Protocol Last Titration: 04/05/18 05:00 Dose: Infused Dextrose (Dextrose 10% In Water) 1,000 mls @ 40 mls/hr IV .Q24H [facility] Last Admin: 04/06/18 07:38 Dose: 40 mls/hr Ampicillin 2 gm/ Sodium (Chloride) 100 mls @ 200 mls/hr IVPB Q8H [facility] PRN Reason: Protocol Calcium Gluconate 1,000 mg/ (Sodium Chloride) 110 mls @ 110 mls/hr IVPB ONCE ONE Stop: 04/06/18 12:59 Potassium Chloride (Potassium Chloride 20 Meq/100 Ml) 20 meq in 100 mls @ 50 mls/hr IVPB ONCE ONE Stop: 04/06/18 21:59 Lorazepam (Ativan) 2 mg IVP Q6H PRN PRN Reason: Anxiety Last Admin: 04/01/18 22:46 Dose: 2 mg Multivitamins/Vitamin C (Multi-Delyn Liquid) 5 ml PO DAILY [facility] Last Admin: 04/06/18 09:28 Dose: Not Given Pantoprazole Sodium (Protonix Inj) 40 mg IVP DAILY [facility] Last Admin: 04/06/18 09:25 Dose: 40 mg - Labs Labs: 04/06/18 06:29 04/06/18 06:31 PT 11.2 SECONDS (9.7-12.2) 04/05/18 06:15 INR 1.0 04/05/18 06:15 APTT 29 SECONDS (21-34) 04/05/18 06:15
--- NOTE | 2018-04-06 13:27 | CP.CCUPN ---
CCU Subjective - Physician Review Subjective (Free Text): Patient seen and examiend at bedside. Intubated, not on pressors, NPO for possible debridement. Patient s/p right tunelled HD cath, and right femoral trialysis cath 04/06/18 19:10 Critical Care Time Spent (in minutes): 40 CCU Objective - Vital Signs / Intake & Output Vital Signs (Last 4 hours): Vital Signs Temp Pulse Resp BP Pulse Ox 04/06/18 13:15 99 H 12 104/61 100 04/06/18 13:05 98.2 F 99 H 12 96/61 L 04/06/18 13:00 99 H 12 96/61 L 100 04/06/18 12:45 102 H 12 101/63 04/06/18 12:35 98.3 F 102 H 16 96/61 L 04/06/18 12:30 106 H 14 96/61 L 100 04/06/18 12:20 98.5 F 100 H 18 112/64 04/06/18 12:15 100 H 13 112/64 100 04/06/18 12:05 98.7 F 103 H 14 108/66 100 04/06/18 12:00 98.6 F 102 H 12 98/60 L 100 04/06/18 11:45 104 H 13 117/70 100 04/06/18 11:36 105 H 14 122/75 97 04/06/18 11:32 103 H 137/78 04/06/18 10:00 89 13 100 04/06/18 09:36 100 H 16 109/61 100 Intake and Output (Last 8hrs): Intake & Output 04/05/18 04/06/18 04/06/18 22:59 06:59 14:59 Intake Total 944 268 6917 Output Total 0 350 Balance 775 645 815 Weight 132 lb Intake: Intake, IV Amount 570 620 750 Right Femoral 320 320 750 Right Femoral Y Port 250 300 Oral 100 90 Tube Feeding 105 25 0 Blood Product 325 Apheresis Rbc Cp2d As3 Lr 0 2nd Unit [id number] Output: Gastric Amount 350 Stomach 350 Stool 0 Other: # Voids Urine, Voided 0 0 0 # Bowel Movements 0 0 - Physical Exam Head: Positive for: Atraumatic Mouth: Positive for: Moist Mucous Membranes Respiratory/Chest: Positive for: Good Air Exchange. Negative for: Respiratory Distress, Accessory Muscle Use Cardiovascular: Positive for: Normal S1, S2, Gallop Abdomen: Positive for: Other (abdomen reveals a 5 cm circular bulb no Bowel sounds in bulb). Negative for: Rebound, Guarding Upper Extremity: Positive for: Edema. Negative for: Cyanosis Lower Extremity: Positive for: Other (non-blanching ecchymotic lesions covering more than 25 percent of lower and abdomen) Neurological: Negative for: GCS=15 (11T) Psychiatric: Positive for: Alert - Medications Active Medications: Active Medications Generic Name Dose Route Start Last Admin Trade Name Freq PRN Reason Stop Dose Admin Albumin Human 12.5 gm 04/01/18 22:30 04/06/18 09:05 Albumin Human 25% (12.5 Gm/50 Ml) IV 12.5 gm Q12 NOLAN Administration Albuterol/Ipratropium 3 ml 04/03/18 09:30 04/03/18 13:37 Duoneb 3 Mg/0.5 Mg (3 Ml) Ud INH 3 ml RQ6 PRN Administration Shortness of Breath Ascorbic Acid 500 mg 04/02/18 10:00 04/06/18 09:28 Vitamin C 500 Mg Tab PO Not Given BID NOLAN Calcium Acetate 1,334 mg 04/05/18 09:32 04/06/18 12:41 Phoslo PO Not Given TIDCC NOLAN Ergocalciferol 1 cap 04/04/18 10:45 04/04/18 12:11 Drisdol 50,000 Intl Units Cap PO 1 cap Q7D NOLAN Administration Ferrous Gluconate 324 mg 04/04/18 14:00 04/06/18 09:28 Fergon PO Not Given TID NOLAN Heparin Sodium (Porcine) 5,000 units 04/02/18 22:00 04/03/18 21:18 Heparin SC 5,000 units Q12 NOLAN Administration Linezolid 600 mg in 300 mls @ 200 mls/hr 04/01/18 22:00 04/06/18 09:05 Zyvox 600mg/300ml D5w IVPB 200 mls/hr Q12 NOLAN Administration Protocol Doxycycline Hyclate 100 mg/ 100 mls @ 100 mls/hr 04/02/18 13:00 04/06/18 12: 42 Sodium Chloride IVPB 100 mls/hr Q12H NOLAN Administration Protocol Dexmedetomidine HCl 200 mcg/ 50 mls @ 2.7 mls/hr 04/03/18 09:45 04/05/18 05: 00 Sodium Chloride IV Infused TITR NOLAN Titration Protocol 0.2 MCG/KG/HR Dextrose 1,000 mls @ 40 mls/hr 04/05/18 08:00 04/06/18 07:38 Dextrose 10% In Water IV 40 mls/hr .Q24H NOLAN Administration Ampicillin 2 gm/ Sodium 100 mls @ 200 mls/hr 04/06/18 12:00 04/06/18 12:34 Chloride IVPB 200 mls/hr Q8H NOLAN Administration Protocol Potassium Chloride 20 meq in 100 mls @ 50 mls/hr 04/06/18 20:00 Potassium Chloride 20 Meq/100 Ml IVPB 04/06/18 21:59 ONCE ONE Lorazepam 2 mg 04/01/18 22:32 04/01/18 22:46 Ativan IVP 2 mg Q6H PRN Administration Anxiety Multivitamins/Vitamin C 5 ml 04/03/18 10:15 04/06/18 09:28 Multi-Delyn Liquid PO Not Given DAILY NOLAN Pantoprazole Sodium 40 mg 04/02/18 10:00 04/06/18 09:25 Protonix Inj IVP 40 mg DAILY NOLAN Administration - Patient Studies Lab Studies: Microbiology Studies 04/02/18 08:53 Blood Culture - Preliminary Blood-Venous NO GROWTH AFTER 4 DAYS 04/02/18 08:53 Blood Culture - Preliminary Blood-Venous NO GROWTH AFTER 4 DAYS 04/03/18 20:22 Gram Stain - Final Leg - Left Wound Culture - Preliminary No growth. 04/03/18 19:30 Gram Stain - Final Leg - Right Wound Culture - Preliminary No growth. Lab Studies 04/06/18 04/06/18 04/06/18 Range/Units 12:12 11:50 08:41 WBC (4.8-10.8) K/uL RBC (3.80-5.20) Mil/uL Hgb (11.0-16.0) g/dL Hct (34.0-47.0) % MCV (81.0-99.0) fL MCH (27.0-31.0) pg MCHC (33.0-37.0) g/dL RDW (11.5-14.5) % Plt Count (130-400) K/uL MPV (7.2-11.7) fL Neut % (Auto) (50.0-75.0) % Lymph % (Auto) (20.0-40.0) % [place] % (Auto) (0.0-10.0) % Eos % (Auto) (0.0-4.0) % Baso % (Auto) (0.0-2.0) % Neut # (Auto) (1.8-7.0) K/uL Lymph # (Auto) (1.0-4.3) K/uL [place] # (Auto) (0.0-0.8) K/uL Eos # (Auto) (0.0-0.7) K/uL Baso # (Auto) (0.0-0.2) K/uL Neutrophils % (Manual) (50-75) % Band Neutrophils % (0-2) % Lymphocytes % (Manual) (20-40) % Monocytes % (Manual) (0-10) % Platelet Estimate (NORMAL) Polychromasia Hypochromasia (manual) Anisocytosis (manual) Puncture Site pCO2 (35-45) mm/Hg pO2 (80-100) mm/Hg HCO3 (21-28) mmol/L ABG pH (7.35-7.45) ABG Total CO2 (22-28) mmol/L ABG O2 Saturation (95-98) % ABG Base Excess (-2.0-3.0) mmol/L ABG Hemoglobin (11.7-17.4) g/dL ABG Carboxyhemoglobin (0.5-1.5) % POC ABG HHb (Measured) (0.0-5.0) % ABG Methemoglobin (0.0-3.0) % Jann Test A-a O2 Difference mm/Hg Respiratory Index Hgb O2 Saturation (95.0-98.0) % Vent Mode Mechanical Rate FiO2 % Tidal Volume PEEP Sodium (132-148) mmol/L Potassium (3.6-5.2) mmol/L Chloride (98-107) mmol/L Carbon Dioxide (22-30) mmol/L Anion Gap (10-20) BUN (7-17) mg/dL Creatinine (0.7-1.2) mg/dL Est GFR ( Amer) Est GFR (Non-Af Amer) POC Glucose (mg/dL) 106 (65-110) mg/dL Random Glucose (65-105) mg/dL Calcium (8.6-10.4) mg/dl Phosphorus (2.5-4.5) mg/dL Magnesium (1.6-2.3) mg/dL Total Bilirubin (0.2-1.3) mg/dL AST (14-36) U/L ALT (9-52) U/L Alkaline Phosphatase (38-126) U/L Total Creatine Kinase 53 (30-135) U/L Total Protein (6.3-8.3) g/dL Albumin (3.5-5.0) g/dL Globulin (2.2-3.9) gm/dL Albumin/Globulin Ratio (1.0-2.1) BCR/abl Source BCR/abl Prior Result BCR/abl Interpretation BCR/abl1 to abl1 % (0.000) BCR/abl1 to abl1 IS % (0.000) BCR/abl1 Mnr (p190) Res BCR/abl1 Mjr (p210) Res Blood Type O POSITIVE Antibody Screen Negative 04/06/18 04/06/18 04/06/18 Range/Units 06:31 06:29 05:50 WBC 31.8 H (4.8-10.8) K/uL RBC 2.55 L (3.80-5.20) Mil/uL Hgb 7.0 L D (11.0-16.0) g/dL Hct 20.5 L (34.0-47.0) % MCV 80.6 L (81.0-99.0) fL MCH 27.3 (27.0-31.0) pg MCHC 33.9 (33.0-37.0) g/dL RDW 22.1 H (11.5-14.5) % Plt Count 174 (130-400) K/uL MPV 7.9 (7.2-11.7) fL Neut % (Auto) 95.1 H (50.0-75.0) % Lymph % (Auto) 2.3 L (20.0-40.0) % [place] % (Auto) 2.3 (0.0-10.0) % Eos % (Auto) 0.2 (0.0-4.0) % Baso % (Auto) 0.1 (0.0-2.0) % Neut # (Auto) 30.2 H (1.8-7.0) K/uL Lymph # (Auto) 0.7 L (1.0-4.3) K/uL [place] # (Auto) 0.7 (0.0-0.8) K/uL Eos # (Auto) 0.1 (0.0-0.7) K/uL Baso # (Auto) 0.0 (0.0-0.2) K/uL Neutrophils % (Manual) 91 H (50-75) % Band Neutrophils % 1 (0-2) % Lymphocytes % (Manual) 5 L (20-40) % Monocytes % (Manual) 3 (0-10) % Platelet Estimate Normal (NORMAL) Polychromasia Slight Hypochromasia (manual) Slight Anisocytosis (manual) Slight Puncture Site pCO2 (35-45) mm/Hg pO2 (80-100) mm/Hg HCO3 (21-28) mmol/L ABG pH (7.35-7.45) ABG Total CO2 (22-28) mmol/L ABG O2 Saturation (95-98) % ABG Base Excess (-2.0-3.0) mmol/L ABG Hemoglobin (11.7-17.4) g/dL ABG Carboxyhemoglobin (0.5-1.5) % POC ABG HHb (Measured) (0.0-5.0) % ABG Methemoglobin (0.0-3.0) % Jann Test A-a O2 Difference mm/Hg Respiratory Index Hgb O2 Saturation (95.0-98.0) % Vent Mode Mechanical Rate FiO2 % Tidal Volume PEEP Sodium 141 (132-148) mmol/L Potassium 3.0 L (3.6-5.2) mmol/L Chloride 101 (98-107) mmol/L Carbon Dioxide 21 L (22-30) mmol/L Anion Gap 22 H (10-20) BUN 41 H (7-17) mg/dL Creatinine 1.8 H (0.7-1.2) mg/dL Est GFR ( Amer) 36 Est GFR (Non-Af Amer) 29 POC Glucose (mg/dL) 113 H (65-110) mg/dL Random Glucose 86 (65-105) mg/dL Calcium 6.3 L (8.6-10.4) mg/dl Phosphorus 4.2 (2.5-4.5) mg/dL Magnesium 1.5 L (1.6-2.3) mg/dL Total Bilirubin 1.6 H (0.2-1.3) mg/dL AST 32 (14-36) U/L ALT 55 H D (9-52) U/L Alkaline Phosphatase 129 H D (38-126) U/L Total Creatine Kinase (30-135) U/L Total Protein 5.0 L (6.3-8.3) g/dL Albumin 1.8 L (3.5-5.0) g/dL Globulin 3.3 (2.2-3.9) gm/dL Albumin/Globulin Ratio 0.5 L (1.0-2.1) BCR/abl Source BCR/abl Prior Result BCR/abl Interpretation BCR/abl1 to abl1 % (0.000) BCR/abl1 to abl1 IS % (0.000) BCR/abl1 Mnr (p190) Res BCR/abl1 Mjr (p210) Res Blood Type Antibody Screen 04/06/18 04/06/18 04/05/18 Range/Units 05:09 00:02 18:14 WBC (4.8-10.8) K/uL RBC (3.80-5.20) Mil/uL Hgb (11.0-16.0) g/dL Hct (34.0-47.0) % MCV (81.0-99.0) fL MCH (27.0-31.0) pg MCHC (33.0-37.0) g/dL RDW (11.5-14.5) % Plt Count (130-400) K/uL MPV (7.2-11.7) fL Neut % (Auto) (50.0-75.0) % Lymph % (Auto) (20.0-40.0) % [place] % (Auto) (0.0-10.0) % Eos % (Auto) (0.0-4.0) % Baso % (Auto) (0.0-2.0) % Neut # (Auto) (1.8-7.0) K/uL Lymph # (Auto) (1.0-4.3) K/uL [place] # (Auto) (0.0-0.8) K/uL Eos # (Auto) (0.0-0.7) K/uL Baso # (Auto) (0.0-0.2) K/uL Neutrophils % (Manual) (50-75) % Band Neutrophils % (0-2) % Lymphocytes % (Manual) (20-40) % Monocytes % (Manual) (0-10) % Platelet Estimate (NORMAL) Polychromasia Hypochromasia (manual) Anisocytosis (manual) Puncture Site Lb pCO2 30 L (35-45) mm/Hg pO2 114 H (80-100) mm/Hg HCO3 26.3 (21-28) mmol/L ABG pH 7.52 H (7.35-7.45) ABG Total CO2 25.4 (22-28) mmol/L ABG O2 Saturation 98.5 H (95-98) % ABG Base Excess 1.8 (-2.0-3.0) mmol/L ABG Hemoglobin 8.3 L (11.7-17.4) g/dL ABG Carboxyhemoglobin 1.4 (0.5-1.5) % POC ABG HHb (Measured) 1.5 (0.0-5.0) % ABG Methemoglobin 1.2 (0.0-3.0) % Jann Test Na A-a O2 Difference 134.0 mm/Hg Respiratory Index 1.2 Hgb O2 Saturation 95.9 (95.0-98.0) % Vent Mode Prvc Mechanical Rate 16 FiO2 40.0 % Tidal Volume 450 PEEP 5 Sodium (132-148) mmol/L Potassium (3.6-5.2) mmol/L Chloride (98-107) mmol/L Carbon Dioxide (22-30) mmol/L Anion Gap (10-20) BUN (7-17) mg/dL Creatinine (0.7-1.2) mg/dL Est GFR ( Amer) Est GFR (Non-Af Amer) POC Glucose (mg/dL) 103 109 (65-110) mg/dL Random Glucose (65-105) mg/dL Calcium (8.6-10.4) mg/dl Phosphorus (2.5-4.5) mg/dL Magnesium (1.6-2.3) mg/dL Total Bilirubin (0.2-1.3) mg/dL AST (14-36) U/L ALT (9-52) U/L Alkaline Phosphatase (38-126) U/L Total Creatine Kinase (30-135) U/L Total Protein (6.3-8.3) g/dL Albumin (3.5-5.0) g/dL Globulin (2.2-3.9) gm/dL Albumin/Globulin Ratio (1.0-2.1) BCR/abl Source BCR/abl Prior Result BCR/abl Interpretation BCR/abl1 to abl1 % (0.000) BCR/abl1 to abl1 IS % (0.000) BCR/abl1 Mnr (p190) Res BCR/abl1 Mjr (p210) Res Blood Type Antibody Screen 04/03/18 Range/Units 12:01 WBC (4.8-10.8) K/uL RBC (3.80-5.20) Mil/uL Hgb (11.0-16.0) g/dL Hct (34.0-47.0) % MCV (81.0-99.0) fL MCH (27.0-31.0) pg MCHC (33.0-37.0) g/dL RDW (11.5-14.5) % Plt Count (130-400) K/uL MPV (7.2-11.7) fL Neut % (Auto) (50.0-75.0) % Lymph % (Auto) (20.0-40.0) % [place] % (Auto) (0.0-10.0) % Eos % (Auto) (0.0-4.0) % Baso % (Auto) (0.0-2.0) % Neut # (Auto) (1.8-7.0) K/uL Lymph # (Auto) (1.0-4.3) K/uL [place] # (Auto) (0.0-0.8) K/uL Eos # (Auto) (0.0-0.7) K/uL Baso # (Auto) (0.0-0.2) K/uL Neutrophils % (Manual) (50-75) % Band Neutrophils % (0-2) % Lymphocytes % (Manual) (20-40) % Monocytes % (Manual) (0-10) % Platelet Estimate (NORMAL) Polychromasia Hypochromasia (manual) Anisocytosis (manual) Puncture Site pCO2 (35-45) mm/Hg pO2 (80-100) mm/Hg HCO3 (21-28) mmol/L ABG pH (7.35-7.45) ABG Total CO2 (22-28) mmol/L ABG O2 Saturation (95-98) % ABG Base Excess (-2.0-3.0) mmol/L ABG Hemoglobin (11.7-17.4) g/dL ABG Carboxyhemoglobin (0.5-1.5) % POC ABG HHb (Measured) (0.0-5.0) % ABG Methemoglobin (0.0-3.0) % Jann Test A-a O2 Difference mm/Hg Respiratory Index Hgb O2 Saturation (95.0-98.0) % Vent Mode Mechanical Rate FiO2 % Tidal Volume PEEP Sodium (132-148) mmol/L Potassium (3.6-5.2) mmol/L Chloride (98-107) mmol/L Carbon Dioxide (22-30) mmol/L Anion Gap (10-20) BUN (7-17) mg/dL Creatinine (0.7-1.2) mg/dL Est GFR ( Amer) Est GFR (Non-Af Amer) POC Glucose (mg/dL) (65-110) mg/dL Random Glucose (65-105) mg/dL Calcium (8.6-10.4) mg/dl Phosphorus (2.5-4.5) mg/dL Magnesium (1.6-2.3) mg/dL Total Bilirubin (0.2-1.3) mg/dL AST (14-36) U/L ALT (9-52) U/L Alkaline Phosphatase (38-126) U/L Total Creatine Kinase (30-135) U/L Total Protein (6.3-8.3) g/dL Albumin (3.5-5.0) g/dL Globulin (2.2-3.9) gm/dL Albumin/Globulin Ratio (1.0-2.1) BCR/abl Source Not given BCR/abl Prior Result Not given BCR/abl Interpretation See note BCR/abl1 to abl1 % 0.000 (0.000) BCR/abl1 to abl1 IS % 0.000 (0.000) BCR/abl1 Mnr (p190) Res Not detected BCR/abl1 Mjr (p210) Res Not detected Blood Type Antibody Screen Laboratory Results - last 24 hr 04/03/18 04/05/18 04/06/18 12:01 18:14 00:02 WBC RBC Hgb Hct MCV MCH MCHC RDW Plt Count MPV Neut % (Auto) Lymph % (Auto) [place] % (Auto) Eos % (Auto) Baso % (Auto) Neut # (Auto) Lymph # (Auto) [place] # (Auto) Eos # (Auto) Baso # (Auto) Neutrophils % (Manual) Band Neutrophils % Lymphocytes % (Manual) Monocytes % (Manual) Platelet Estimate Polychromasia Hypochromasia (manual) Anisocytosis (manual) Puncture Site pCO2 pO2 HCO3 ABG pH ABG Total CO2 ABG O2 Saturation ABG Base Excess ABG Hemoglobin ABG Carboxyhemoglobin POC ABG HHb (Measured) ABG Methemoglobin Jann Test A-a O2 Difference Respiratory Index Hgb O2 Saturation Vent Mode Mechanical Rate FiO2 Tidal Volume PEEP Sodium Potassium Chloride Carbon Dioxide Anion Gap BUN Creatinine Est GFR ( Amer) Est GFR (Non-Af Amer) POC Glucose (mg/dL) 109 103 Random Glucose Calcium Phosphorus Magnesium Total Bilirubin AST ALT Alkaline Phosphatase Total Creatine Kinase Total Protein Albumin Globulin Albumin/Globulin Ratio BCR/abl Source Not given BCR/abl Prior Result Not given BCR/abl Interpretation See note BCR/abl1 to abl1 % 0.000 BCR/abl1 to abl1 IS % 0.000 BCR/abl1 Mnr (p190) Res Not detected BCR/abl1 Mjr (p210) Res Not detected Blood Type Antibody Screen 04/06/18 04/06/18 04/06/18 05:09 05:50 06:29 WBC 31.8 H RBC 2.55 L Hgb 7.0 L D Hct 20.5 L MCV 80.6 L MCH 27.3 MCHC 33.9 RDW 22.1 H Plt Count 174 MPV 7.9 Neut % (Auto) 95.1 H Lymph % (Auto) 2.3 L [place] % (Auto) 2.3 Eos % (Auto) 0.2 Baso % (Auto) 0.1 Neut # (Auto) 30.2 H Lymph # (Auto) 0.7 L [place] # (Auto) 0.7 Eos # (Auto) 0.1 Baso # (Auto) 0.0 Neutrophils % (Manual) 91 H Band Neutrophils % 1 Lymphocytes % (Manual) 5 L Monocytes % (Manual) 3 Platelet Estimate Normal Polychromasia Slight Hypochromasia (manual) Slight Anisocytosis (manual) Slight Puncture Site Lb pCO2 30 L pO2 114 H HCO3 26.3 ABG pH 7.52 H ABG Total CO2 25.4 ABG O2 Saturation 98.5 H ABG Base Excess 1.8 ABG Hemoglobin 8.3 L ABG Carboxyhemoglobin 1.4 POC ABG HHb (Measured) 1.5 ABG Methemoglobin 1.2 Jann Test Na A-a O2 Difference 134.0 Respiratory Index 1.2 Hgb O2 Saturation 95.9 Vent Mode Prvc Mechanical Rate 16 FiO2 40.0 Tidal Volume 450 PEEP 5 Sodium Potassium Chloride Carbon Dioxide Anion Gap BUN Creatinine Est GFR ( Amer) Est GFR (Non-Af Amer) POC Glucose (mg/dL) 113 H Random Glucose Calcium Phosphorus Magnesium Total Bilirubin AST ALT Alkaline Phosphatase Total Creatine Kinase Total Protein Albumin Globulin Albumin/Globulin Ratio BCR/abl Source BCR/abl Prior Result BCR/abl Interpretation BCR/abl1 to abl1 % BCR/abl1 to abl1 IS % BCR/abl1 Mnr (p190) Res BCR/abl1 Mjr (p210) Res Blood Type Antibody Screen 04/06/18 04/06/18 04/06/18 06:31 08:41 11:50 WBC RBC Hgb Hct MCV MCH MCHC RDW Plt Count MPV Neut % (Auto) Lymph % (Auto) [place] % (Auto) Eos % (Auto) Baso % (Auto) Neut # (Auto) Lymph # (Auto) [place] # (Auto) Eos # (Auto) Baso # (Auto) Neutrophils % (Manual) Band Neutrophils % Lymphocytes % (Manual) Monocytes % (Manual) Platelet Estimate Polychromasia Hypochromasia (manual) Anisocytosis (manual) Puncture Site pCO2 pO2 HCO3 ABG pH ABG Total CO2 ABG O2 Saturation ABG Base Excess ABG Hemoglobin ABG Carboxyhemoglobin POC ABG HHb (Measured) ABG Methemoglobin Jann Test A-a O2 Difference Respiratory Index Hgb O2 Saturation Vent Mode Mechanical Rate FiO2 Tidal Volume PEEP Sodium 141 Potassium 3.0 L Chloride 101 Carbon Dioxide 21 L Anion Gap 22 H BUN 41 H Creatinine 1.8 H Est GFR ( Amer) 36 Est GFR (Non-Af Amer) 29 POC Glucose (mg/dL) 106 Random Glucose 86 Calcium 6.3 L Phosphorus 4.2 Magnesium 1.5 L Total Bilirubin 1.6 H AST 32 ALT 55 H D Alkaline Phosphatase 129 H D Total Creatine Kinase Total Protein 5.0 L Albumin 1.8 L Globulin 3.3 Albumin/Globulin Ratio 0.5 L BCR/abl Source BCR/abl Prior Result BCR/abl Interpretation BCR/abl1 to abl1 % BCR/abl1 to abl1 IS % BCR/abl1 Mnr (p190) Res BCR/abl1 Mjr (p210) Res Blood Type O POSITIVE Antibody Screen Negative 04/06/18 12:12 WBC RBC Hgb Hct MCV MCH MCHC RDW Plt Count MPV Neut % (Auto) Lymph % (Auto) [place] % (Auto) Eos % (Auto) Baso % (Auto) Neut # (Auto) Lymph # (Auto) [place] # (Auto) Eos # (Auto) Baso # (Auto) Neutrophils % (Manual) Band Neutrophils % Lymphocytes % (Manual) Monocytes % (Manual) Platelet Estimate Polychromasia Hypochromasia (manual) Anisocytosis (manual) Puncture Site pCO2 pO2 HCO3 ABG pH ABG Total CO2 ABG O2 Saturation ABG Base Excess ABG Hemoglobin ABG Carboxyhemoglobin POC ABG HHb (Measured) ABG Methemoglobin Jann Test A-a O2 Difference Respiratory Index Hgb O2 Saturation Vent Mode Mechanical Rate FiO2 Tidal Volume PEEP Sodium Potassium Chloride Carbon Dioxide Anion Gap BUN Creatinine Est GFR ( Amer) Est GFR (Non-Af Amer) POC Glucose (mg/dL) Random Glucose Calcium Phosphorus Magnesium Total Bilirubin AST ALT Alkaline Phosphatase Total Creatine Kinase 53 Total Protein Albumin Globulin Albumin/Globulin Ratio BCR/abl Source BCR/abl Prior Result BCR/abl Interpretation BCR/abl1 to abl1 % BCR/abl1 to abl1 IS % BCR/abl1 Mnr (p190) Res BCR/abl1 Mjr (p210) Res Blood Type Antibody Screen Fingerstick Blood Sugar Results: 113 Review of Systems - Review of Systems Review of Systems: intubated and unable to obtain ROS Critical Care Progress Note - Nutrition Nutrition: Nutrition Category Date Time Status NPO Diet [DIET] Diets 04/06/18 Breakfast Active Assessment/Plan - Assessment and Plan (Free Text) Assessment: -Severe sepsis: blood culture grew listeria, continue abx as per ID, de- escalate abx -LULA: continue HD as per renal, keep bicarb >18 -thrombocytosis: resolving today plt 103, fibrinogen >100, not in DIC -Anemia:s/p multiple blood transfusion, will transfuse 2 units today, f/u CBC at 9PM -hydronephrosis: posisble 2nd enlarged uterus -Anion gap metabolic acidosis: 2nd renal failure, monitor to keep HCO3 >18 -scheudled for debridement today -GI: will start tube feeds (if no further surgery anticiapted) -DVT ppx: heparin SQ q12 -PUD ppx protonix -will d/w family/PMD regarding possible transfer to burn unit given the large percent of total skin involved. -continue MVI and vitamin C. Cc time spent 40 minutes - Date & Time Date: 04/06/18 Time: 10:10
--- NOTE | 2018-04-06 15:36 | CP.PCM.PN ---
Subjective - Date & Time of Evaluation Date of Evaluation: 04/06/18 Time of Evaluation: 03:35 - Subjective Subjective: dictated Objective - Vital Signs/Intake and Output Vital Signs (last 24 hours): Temp Pulse Resp BP Pulse Ox 98.6 F 93 H 16 102/63 100 04/06/18 15:15 04/06/18 15:15 04/06/18 15:15 04/06/18 15:15 04/06/18 13:15 Intake and Output: 04/06/18 04/06/18 06:59 18:59 Intake Total 1140 2014 Output Total 0 350 Balance 1140 1664 - Medications Medications: Current Medications Albumin Human (Albumin Human 25% (12.5 Gm/50 Ml)) 12.5 gm IV Q12 [facility] Last Admin: 04/06/18 09:05 Dose: 12.5 gm Albuterol/Ipratropium (Duoneb 3 Mg/0.5 Mg (3 Ml) Ud) 3 ml INH RQ6 PRN PRN Reason: Shortness of Breath Last Admin: 04/03/18 13:37 Dose: 3 ml Ascorbic Acid (Vitamin C 500 Mg Tab) 500 mg PO BID [facility] Last Admin: 04/06/18 09:28 Dose: Not Given Calcium Acetate (Phoslo) 1,334 mg PO TIDCC [facility] Last Admin: 04/06/18 12:41 Dose: Not Given Ergocalciferol (Drisdol 50,000 Intl Units Cap) 1 cap PO Q7D [facility] Last Admin: 04/04/18 12:11 Dose: 1 cap Ferrous Gluconate (Fergon) 324 mg PO TID [facility] Last Admin: 04/06/18 09:28 Dose: Not Given Heparin Sodium (Porcine) (Heparin) 5,000 units SC Q12 [facility] Last Admin: 04/03/18 21:18 Dose: 5,000 units Linezolid (Zyvox 600mg/300ml D5w) 600 mg in 300 mls @ 200 mls/hr IVPB Q12 [facility] PRN Reason: Protocol Last Admin: 04/06/18 09:05 Dose: 200 mls/hr Doxycycline Hyclate 100 mg/ (Sodium Chloride) 100 mls @ 100 mls/hr IVPB Q12H [facility] PRN Reason: Protocol Last Admin: 04/06/18 12:42 Dose: 100 mls/hr Dexmedetomidine HCl 200 mcg/ (Sodium Chloride) 50 mls @ 2.7 mls/hr IV TITR [facility] ; 0.2 MCG/KG/HR PRN Reason: Protocol Last Titration: 04/05/18 05:00 Dose: Infused Dextrose (Dextrose 10% In Water) 1,000 mls @ 40 mls/hr IV .Q24H [facility] Last Admin: 04/06/18 07:38 Dose: 40 mls/hr Ampicillin 2 gm/ Sodium (Chloride) 100 mls @ 200 mls/hr IVPB Q8H [facility] PRN Reason: Protocol Last Admin: 04/06/18 12:34 Dose: 200 mls/hr Potassium Chloride (Potassium Chloride 20 Meq/100 Ml) 20 meq in 100 mls @ 50 mls/hr IVPB ONCE ONE Stop: 04/06/18 21:59 Lorazepam (Ativan) 2 mg IVP Q6H PRN PRN Reason: Anxiety Last Admin: 04/01/18 22:46 Dose: 2 mg Multivitamins/Vitamin C (Multi-Delyn Liquid) 5 ml PO DAILY [facility] Last Admin: 04/06/18 09:28 Dose: Not Given Pantoprazole Sodium (Protonix Inj) 40 mg IVP DAILY [facility] Last Admin: 04/06/18 09:25 Dose: 40 mg - Labs Labs: 04/06/18 06:29 04/06/18 06:31 PT 11.2 SECONDS (9.7-12.2) 04/05/18 06:15 INR 1.0 04/05/18 06:15 APTT 29 SECONDS (21-34) 04/05/18 06:15
--- NOTE | 2018-04-06 15:46 | PCM.PROC ---
Procedures Attestation:: I certify that I have explained the specified Operation(s) or Procedure(s), risks, benefits and reasonable alternatives to the Patient and/or other person responsible. The opportunity was given to ask questions and all questions answered - Central Line Placement Left Internal Jugular Triple Lumen Catheter Aseptic technique was employed throughout the procedure: Full sterile barriers ( mask, hair cover, sterile gown, sterile gloves), Full body sterile drape, Chloraprep Antiseptic: 30 second prep for IJ or SC sites CVP Time Out Performed: Yes Pt. Placed on Pulse Ox Monitor: Yes Central Line Prep: Chlorhexidine-Alcohol Combination Local Anesthesia Used: Lidocaine 1% Amount of Anesthesia Used (mls): 5 Ultrasound Used for Placement: Yes Central Line Lumen Inserted: triple Central Line Length: 20 cm Post Procedure: Sutured in Place, Good Blood Return, All Ports Aspirated, Flushed, Capped, Sterile Dressing Applied Secured by: Suture Post procedure dressing: Gauze, Clear vapor permeable, Chlorhexidine disc ( Biopatch) Post Procedure X-Ray: Yes Patient Tolerated Procedure: Well Immediate Complications: None
--- NOTE | 2018-04-06 18:17 | RAD ---
HISTORY: Central line placement COMPARISON: April 06, 2018. Time of the most recent examination: 07:29. FINDINGS: LUNGS: Stable consolidative changes left lower lobe. Questionable infiltrate right upper lobe a new finding. PLEURA: No significant pleural effusion identified, no pneumothorax apparent. CARDIOVASCULAR: No radiographic findings to suggest acute or significant cardiovascular disease. Venous access catheter in stable, satisfactory position. OSSEOUS STRUCTURES: No significant abnormalities. VISUALIZED UPPER ABDOMEN: Normal. OTHER FINDINGS: Stable position of endotracheal tube within 1.5 cm of the aysha. Satisfactory position of nasogastric tube coursing through the esophagus, the tip is near the pylorus. IMPRESSION: Satisfactory position of support apparatus. Stable left lower lobe infiltrate. Questionable new infiltrate right upper lobe. Stable/ low lying endotracheal tube.
[2018-04-06 21:13] LABS: HEMOGLOBIN 8.2 g/dL (11.0-16.0); LYMPH # 1.1 K/uL (1.0-4.3); LYMPH % 4.2 % (20.0-40.0); MEAN CELL VOLUME 80.5 fL (81.0-99.0); MEAN CORPUSCULAR HEMOGLOBIN 27.8 pg (27.0-31.0); MEAN CORPUSCULAR HGB CONC 34.5 g/dL (33.0-37.0); MEAN PLATELET VOLUME 9.2 fL (7.2-11.7); MONO # 0.9 K/uL (0.0-0.8); MONO % 3.2 % (0.0-10.0); NEUT # 24.9 K/uL (1.8-7.0); NEUT % 92.6 % (50.0-75.0); NRBC % 0.1 % (0.0-2.0); PLATELET COUNT 73 K/uL (130-400); RBC 2.96 Mil/uL (3.80-5.20); RED CELL DISTRIBUTION WIDTH 18.6 % (11.5-14.5); WHITE BLOOD COUNT 26.9 K/uL (4.8-10.8)
[2018-04-06 21:31] LABS: CALCIUM 7.7 mg/dl (8.6-10.4)
[2018-04-06 22:10] LABS: BANDS 5 % (0-2); HYPOCHROMIC SLIGHT; LYMPHOCYTE 2 % (20-40); MICROCYTOSIS SLIGHT; MONOCYTE 3 % (0-10); NEUTROPHIL 90 % (50-75); OVALOCYTES SLIGHT; PLATELET ESTIMATE SLIGHTLY DECREASED (NORMAL); SCHISTOCYTES SLIGHT; TOTAL CELLS COUNTED 100
--- NOTE | 2018-04-06 22:27 | OP ---
PROCEDURE DATE: 04/06/2018 PREOPERATIVE DIAGNOSIS: Necrotic wounds of legs. POSTOPERATIVE DIAGNOSIS: Necrotic wounds of legs. PROCEDURE CARRIED OUT: Debridement of skin, subcutaneous tissue and muscle, greater than 100 cm2 from each leg. SURGEON: Saleem Moore Jr., MD SURVEY ENGINEER: Dr. Grier. ANESTHESIOLOGIST: Dr. Ortega. ESTIMATED BLOOD LOSS: Less than 25 mL. INDICATIONS: The patient is a 52-year-old woman ____ extensive skin necrosis. We removed not the mottled areas, which still were intact but there is full thickness areas on the lower part of the leg and on the calves. DESCRIPTION OF PROCEDURE: She is brought to the [facility] and sharp surgical debridement. Specimens were taken for direct tissue culture. There were no other unusual complications or problems in completion of the debridement. Silvadene and occlusive dressings were applied through the wounds. Operation carried out, debridement of skin, subcutaneous tissue and muscle from both legs over 100 cm2 from both legs. Saleem Moore Jr., MD
--- NOTE | 2018-04-07 00:30 | PN ---
DATE: 04/06/2018 SUBJECTIVE: The patient is still very awake and remains intubated. Her dialysis catheter was changed yesterday and today they are going to change the right groin line as it needs to be changed. She also had debridement of her lower extremity wounds and at this time, I discussed with the student affairs dean, Dr. Vazquez that she needs to be sent to wound care and you know she would benefit with the Burn Care Unit or hyperbaric oxygen and they are trying to get her to one of those places. PHYSICAL EXAMINATION: VITAL SIGNS: T-max is 98.6, pulse 93, blood pressure 102/63, respirations are 16. HEENT: Head is atraumatic, normocephalic. GENERAL: She is awake, intubated. Responds to command. NECK: Supple. LUNGS: Clear. HEART: S1, S2 is regular. ABDOMEN: Soft, nontender. EXTREMITIES: Remain with bilateral dressings at this time in the lower extremities. SKIN: The areas of ecchymosis on the upper extremity and chest wall remains unchanged. She also has the nodular hernia in the abdomen which is unchanged. LABORATORY DATA: White count is 31.8 today, hemoglobin 7, hematocrit 20.5, platelet count is 174, it is better. Neutrophils remain 95.1, bands are 1 today and she is still hyperventilating looks like ABG shows 7.52, of 25.4, PO2 of 114, CO2 30, and potassium was 3 is being supplemented, and creatinine came down to 1.8. Magnesium is 1.5 and student affairs dean is following these numbers. 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 She also had a x-ray today which shows stable left lower lobe infiltrate, questionable new infiltrate right upper lobe, stable low-lying ET tube. So, at this time we will continue with the antibiotics, would increase the ampicillin to 2 gm every 8 hours for now as creatinine is little better. She is also on Zyvox and doxycycline, will continue those. If there is any chance of instability, I would consider giving aminoglycoside gentamicin which the organism is supposed to be sensitive to, but I am holding it back as her kidney functions are improving. The wound culture from the left leg from 04/03/2018 grew coagulase negative which is probably just skin contaminant, I do not think it is the real organism. We will follow. Festus Camarena MD
--- NOTE | 2018-04-07 00:31 | CP.PCM.PN ---
Subjective - Date & Time of Evaluation Date of Evaluation: 04/07/18 Time of Evaluation: 20:15 - Subjective Subjective: Vented Objective - Vital Signs/Intake and Output Vital Signs (last 24 hours): Temp Pulse Resp BP Pulse Ox 98.6 F 92 H 15 82/46 L 100 04/06/18 15:15 04/06/18 21:00 04/06/18 21:00 04/06/18 20:58 04/06/18 21:00 Intake and Output: 04/06/18 04/07/18 18:59 06:59 Intake Total 2394 40 Output Total 450 Balance 1944 40 - Medications Medications: Current Medications Albuterol/Ipratropium (Duoneb 3 Mg/0.5 Mg (3 Ml) Ud) 3 ml INH RQ6 PRN PRN Reason: Shortness of Breath Last Admin: 04/03/18 13:37 Dose: 3 ml Ascorbic Acid (Vitamin C 500 Mg Tab) 500 mg PO BID [facility] Last Admin: 04/06/18 17:33 Dose: Not Given Calcium Acetate (Phoslo) 1,334 mg PO TIDCC [facility] Last Admin: 04/06/18 17:33 Dose: Not Given Ergocalciferol (Drisdol 50,000 Intl Units Cap) 1 cap PO Q7D [facility] Last Admin: 04/04/18 12:11 Dose: 1 cap Ferrous Gluconate (Fergon) 324 mg PO TID [facility] Last Admin: 04/06/18 17:33 Dose: Not Given Heparin Sodium (Porcine) (Heparin) 5,000 units SC Q12 [facility] Last Admin: 04/03/18 21:18 Dose: 5,000 units Linezolid (Zyvox 600mg/300ml D5w) 600 mg in 300 mls @ 200 mls/hr IVPB Q12 [facility] PRN Reason: Protocol Last Admin: 04/06/18 09:05 Dose: 200 mls/hr Doxycycline Hyclate 100 mg/ (Sodium Chloride) 100 mls @ 100 mls/hr IVPB Q12H [facility] PRN Reason: Protocol Last Admin: 04/06/18 12:42 Dose: 100 mls/hr Dexmedetomidine HCl 200 mcg/ (Sodium Chloride) 50 mls @ 2.7 mls/hr IV TITR [facility] ; 0.2 MCG/KG/HR PRN Reason: Protocol Last Titration: 04/05/18 05:00 Dose: Infused Dextrose (Dextrose 10% In Water) 1,000 mls @ 40 mls/hr IV .Q24H [facility] Last Admin: 04/06/18 07:38 Dose: 40 mls/hr Ampicillin 2 gm/ Sodium (Chloride) 100 mls @ 200 mls/hr IVPB Q8H [facility] PRN Reason: Protocol Last Admin: 04/06/18 21:00 Dose: 200 mls/hr Lorazepam (Ativan) 2 mg IVP Q6H PRN PRN Reason: Anxiety Last Admin: 04/01/18 22:46 Dose: 2 mg Multivitamins/Vitamin C (Multi-Delyn Liquid) 5 ml PO DAILY [facility] Last Admin: 04/06/18 09:28 Dose: Not Given Pantoprazole Sodium (Protonix Inj) 40 mg IVP DAILY [facility] Last Admin: 04/06/18 09:25 Dose: 40 mg - Labs Labs: 04/06/18 21:09 04/06/18 21:09 PT 11.2 SECONDS (9.7-12.2) 04/05/18 06:15 INR 1.0 04/05/18 06:15 APTT 29 SECONDS (21-34) 04/05/18 06:15 - Head Exam Head Exam: ATRAUMATIC - Eye Exam Eye Exam: Normal appearance - ENT Exam ENT Exam: Mucous Membranes Dry - Respiratory Exam Respiratory Exam: NORMAL BREATHING PATTERN - Cardiovascular Exam Cardiovascular Exam: +S1, +S2 - GI/Abdominal Exam GI & Abdominal Exam: Normal Bowel Sounds Assessment and Plan (1) Leukocytosis Assessment & Plan: improving on antibiotics negative evaluation for myeloproliferative disorder likely secondary to infection; improving with antibiotics and wound debridement Status: Acute (2) Anemia Assessment & Plan: chronic disease and renal disease transfusion suppport PRN EPO per renal Status: Acute (3) Thrombocytopenia Assessment & Plan: f/u HIT w/u heparin on hold ?sepsis related Status: Acute (4) Coagulopathy Assessment & Plan: nutritional Status: Acute
[2018-04-07] MEDS: AMPicillin 2 GM in Sodium Chloride 100 ML IVPB SCH ×3 (03:00→20:00)
[2018-04-07 05:37] LABS: ARTERIAL BLOOD GAS HCO3 24.6 mmol/L (21-28); ARTERIAL BLOOD GAS HEMOGLOBIN 8.1 g/dL (11.7-17.4); ARTERIAL BLOOD GAS O2 SAT 98.6 % (95-98); ARTERIAL BLOOD GAS PCO2 27 mm/Hg (35-45); ARTERIAL BLOOD GAS PH 7.52 (7.35-7.45); ARTERIAL BLOOD GAS PO2 187 mm/Hg (80-100); ARTERIAL BLOOD GAS TCO2 22.8 mmol/L (22-28)
--- NOTE | 2018-04-07 05:38 | CP.PCM.PN ---
Subjective - Date & Time of Evaluation Date of Evaluation: 04/06/18 Time of Evaluation: 18:00 - Subjective Subjective: Pt is on ventilator, she is for HD, pt has leukocytocis, and rash all over body , she [place] infection [place], improving overall Objective - Vital Signs/Intake and Output Vital Signs (last 24 hours): Temp Pulse Resp BP Pulse Ox 98.5 F 88 20 88/51 L 100 04/07/18 00:00 04/07/18 03:00 04/07/18 03:00 04/07/18 02:58 04/07/18 03:00 Intake and Output: 04/06/18 04/07/18 18:59 06:59 Intake Total 2394 1000 Output Total 450 Balance 1944 1000 - Medications Medications: Current Medications Albuterol/Ipratropium (Duoneb 3 Mg/0.5 Mg (3 Ml) Ud) 3 ml INH RQ6 PRN PRN Reason: Shortness of Breath Last Admin: 04/03/18 13:37 Dose: 3 ml Ascorbic Acid (Vitamin C 500 Mg Tab) 500 mg PO BID [facility] Last Admin: 04/06/18 17:33 Dose: Not Given Calcium Acetate (Phoslo) 1,334 mg PO TIDCC [facility] Last Admin: 04/06/18 17:33 Dose: Not Given Ergocalciferol (Drisdol 50,000 Intl Units Cap) 1 cap PO Q7D [facility] Last Admin: 04/04/18 12:11 Dose: 1 cap Ferrous Gluconate (Fergon) 324 mg PO TID [facility] Last Admin: 04/06/18 17:33 Dose: Not Given Heparin Sodium (Porcine) (Heparin) 5,000 units SC Q12 [facility] Last Admin: 04/03/18 21:18 Dose: 5,000 units Linezolid (Zyvox 600mg/300ml D5w) 600 mg in 300 mls @ 200 mls/hr IVPB Q12 [facility] PRN Reason: Protocol Last Admin: 04/06/18 21:30 Dose: 200 mls/hr Doxycycline Hyclate 100 mg/ (Sodium Chloride) 100 mls @ 100 mls/hr IVPB Q12H [facility] PRN Reason: Protocol Last Admin: 04/07/18 00:00 Dose: 100 mls/hr Dexmedetomidine HCl 200 mcg/ (Sodium Chloride) 50 mls @ 2.7 mls/hr IV TITR [facility] ; 0.2 MCG/KG/HR PRN Reason: Protocol Last Titration: 04/05/18 05:00 Dose: Infused Dextrose (Dextrose 10% In Water) 1,000 mls @ 40 mls/hr IV .Q24H [facility] Last Admin: 04/06/18 07:38 Dose: 40 mls/hr Ampicillin 2 gm/ Sodium (Chloride) 100 mls @ 200 mls/hr IVPB Q8H [facility] PRN Reason: Protocol Last Admin: 04/06/18 21:00 Dose: 200 mls/hr Lorazepam (Ativan) 2 mg IVP Q6H PRN PRN Reason: Anxiety Last Admin: 04/01/18 22:46 Dose: 2 mg Multivitamins/Vitamin C (Multi-Delyn Liquid) 5 ml PO DAILY [facility] Last Admin: 04/06/18 09:28 Dose: Not Given Pantoprazole Sodium (Protonix Inj) 40 mg IVP DAILY [facility] Last Admin: 04/06/18 09:25 Dose: 40 mg - Labs Labs: 04/06/18 21:09 04/06/18 21:09 PT 11.2 SECONDS (9.7-12.2) 04/05/18 06:15 INR 1.0 04/05/18 06:15 APTT 29 SECONDS (21-34) 04/05/18 06:15 - Constitutional Appears: No Acute Distress - Head Exam Head Exam: ATRAUMATIC, NORMAL INSPECTION, NORMOCEPHALIC - Eye Exam Eye Exam: EOMI, Normal appearance, PERRL Pupil Exam: NORMAL ACCOMODATION, PERRL - Respiratory Exam Respiratory Exam: Decreased Breath Sounds, Rhonchi - Cardiovascular Exam Cardiovascular Exam: REGULAR RHYTHM, +S1, +S2. absent: Murmur - GI/Abdominal Exam GI & Abdominal Exam: Soft, Normal Bowel Sounds. absent: Tenderness - Neurological Exam Neurological Exam: Alert, Awake, CN II-XII Intact, Normal Gait, Oriented x3 - Skin Skin Exam: Rash Additional comments: positive eechomytic rash all over body Assessment and Plan (1) Coagulopathy Status: Acute (2) Altered mental status Status: Acute (3) Myoglobinuria Status: Acute (4) Renal failure Status: Acute (5) Listeria septicemia Status: Acute (6) Acute tubular necrosis Status: Acute (7) Acute respiratory failure Status: Acute
[2018-04-07 06:13] LABS: BASO % 0.1 % (0.0-2.0); HEMOGLOBIN 8.1 g/dL (11.0-16.0); LYMPH # 1.1 K/uL (1.0-4.3); LYMPH % 3.9 % (20.0-40.0); MEAN CORPUSCULAR HEMOGLOBIN 27.8 pg (27.0-31.0); MEAN CORPUSCULAR HGB CONC 34.3 g/dL (33.0-37.0); MEAN PLATELET VOLUME 9.4 fL (7.2-11.7); MONO # 0.9 K/uL (0.0-0.8); MONO % 3.3 % (0.0-10.0); NEUT # 26.8 K/uL (1.8-7.0); NEUT % 92.7 % (50.0-75.0); PLATELET COUNT 77 K/uL (130-400); RBC 2.91 Mil/uL (3.80-5.20); RED CELL DISTRIBUTION WIDTH 18.6 % (11.5-14.5); WHITE BLOOD COUNT 28.9 K/uL (4.8-10.8)
[2018-04-07 06:37] LABS: ALB/GLOB RATIO 0.9 (1.0-2.1); CALCIUM 7.7 mg/dl (8.6-10.4)
--- NOTE | 2018-04-07 07:17 | CP.PCM.PN ---
Subjective - Date & Time of Evaluation Date of Evaluation: 04/07/18 Time of Evaluation: 07:00 - Subjective Subjective: Surgery- Dr. Moore Patient seen and examined at bedside this AM. No acute events overnight. Awake and alert responding to commands and following directions appropriately. on PRVC 450 5 40 20. Not on pressors or sedation. Unable to obtain full ROS due to pt being intubated. Bilateral lower extremities dressing clean, dry, intact w/ some strikethrough. Objective - Vital Signs/Intake and Output Vital Signs (last 24 hours): Temp Pulse Resp BP Pulse Ox 98.5 F 86 15 84/48 L 100 04/07/18 04:00 04/07/18 06:09 04/07/18 06:09 04/07/18 06:09 04/07/18 06:09 Intake and Output: 04/07/18 04/07/18 06:59 18:59 Intake Total 1140 Balance 1140 - Medications Medications: Current Medications Albuterol/Ipratropium (Duoneb 3 Mg/0.5 Mg (3 Ml) Ud) 3 ml INH RQ6 PRN PRN Reason: Shortness of Breath Last Admin: 04/03/18 13:37 Dose: 3 ml Ascorbic Acid (Vitamin C 500 Mg Tab) 500 mg PO BID [facility] Last Admin: 04/06/18 17:33 Dose: Not Given Calcium Acetate (Phoslo) 1,334 mg PO TIDCC [facility] Last Admin: 04/06/18 17:33 Dose: Not Given Ergocalciferol (Drisdol 50,000 Intl Units Cap) 1 cap PO Q7D [facility] Last Admin: 04/04/18 12:11 Dose: 1 cap Ferrous Gluconate (Fergon) 324 mg PO TID [facility] Last Admin: 04/06/18 17:33 Dose: Not Given Heparin Sodium (Porcine) (Heparin) 5,000 units SC Q12 [facility] Last Admin: 04/03/18 21:18 Dose: 5,000 units Linezolid (Zyvox 600mg/300ml D5w) 600 mg in 300 mls @ 200 mls/hr IVPB Q12 [facility] PRN Reason: Protocol Last Admin: 04/06/18 21:30 Dose: 200 mls/hr Doxycycline Hyclate 100 mg/ (Sodium Chloride) 100 mls @ 100 mls/hr IVPB Q12H [facility] PRN Reason: Protocol Last Admin: 04/07/18 00:00 Dose: 100 mls/hr Dexmedetomidine HCl 200 mcg/ (Sodium Chloride) 50 mls @ 2.7 mls/hr IV TITR [facility] ; 0.2 MCG/KG/HR PRN Reason: Protocol Last Titration: 04/05/18 05:00 Dose: Infused Dextrose (Dextrose 10% In Water) 1,000 mls @ 40 mls/hr IV .Q24H [facility] Last Admin: 04/06/18 07:38 Dose: 40 mls/hr Ampicillin 2 gm/ Sodium (Chloride) 100 mls @ 200 mls/hr IVPB Q8H [facility] PRN Reason: Protocol Last Admin: 04/07/18 03:00 Dose: 200 mls/hr Lorazepam (Ativan) 2 mg IVP Q6H PRN PRN Reason: Anxiety Last Admin: 04/01/18 22:46 Dose: 2 mg Multivitamins/Vitamin C (Multi-Delyn Liquid) 5 ml PO DAILY [facility] Last Admin: 04/06/18 09:28 Dose: Not Given Pantoprazole Sodium (Protonix Inj) 40 mg IVP DAILY [facility] Last Admin: 04/06/18 09:25 Dose: 40 mg - Labs Labs: 04/07/18 05:59 04/07/18 06:02 PT 11.2 SECONDS (9.7-12.2) 04/05/18 06:15 INR 1.0 04/05/18 06:15 APTT 29 SECONDS (21-34) 04/05/18 06:15 - Constitutional Appears: Non-toxic, No Acute Distress - Head Exam Head Exam: ATRAUMATIC - Eye Exam Eye Exam: EOMI. absent: Scleral icterus - ENT Exam Additional comments: Poor dentition - Respiratory Exam Respiratory Exam: NORMAL BREATHING PATTERN. absent: Accessory Muscle Use, Respiratory Distress - Cardiovascular Exam Cardiovascular Exam: +S1, +S2. absent: Bradycardia, Tachycardia - GI/Abdominal Exam GI & Abdominal Exam: Soft. absent: Distended, Firm, Guarding, Rigid, Tenderness - Extremities Exam Additional comments: bilateral lower extremities wrapped w/ ZORAIDA bandage. Dressing C/D/I. Palpable pedal pulses - Neurological Exam Neurological Exam: Alert, Awake - Psychiatric Exam Psychiatric exam: Normal Affect - Skin Skin Exam: Rash Assessment and Plan - Assessment and Plan (Free Text) Assessment: 52F s/p bilateral lower extremity debridement of skin, subcutaneous tissue and muscle Plan: - Keep leg dressing in place; will change tomorrow * silvadene w/ 4x4 and Krillex - Vent weaning protocol - Cleared to transfer to Burn unit from surgical standpoint - medical management per primary and ICU team - will d/w Dr. Oscar Grier PGY1
--- NOTE | 2018-04-07 07:54 | CON ---
DATE: 04/05/2018rom Dr. Sailnas Miles to Dr. Carlin Hair. I was called for GI consultation by the admitting medical team. The patient is seen and fully examined on 04/05/[address] Carlin Hair. The entire chart is reviewed including but not limited to the most recent lab and radiology study results, current and the previous list, current and the previous medical events, allergic to medication list, as well as all the available current and the previous medical record. Case discussed at length with Dr. Hair immediately before and after my GI consultation on 04/05/2018. HISTORY OF PRESENT ILLNESS: This is a 52-year-old female who was admitted to the intensive care unit in [facility], was transferring here from [place], was intubated as she was [place], she is still intubated and sedated with reported subsequent drop of hemoglobin and hematocrit with very poor oral intake due to her clinical presentation with multiple skin ulcerations and some necrosis as well as ecchymotic changes. Reported body weight loss recently. PAST MEDICAL HISTORY: Apparently is unavailable but reported leukocytosis, very low hemoglobin and hematocrit, evidence of rhabdomyolysis as well as evidence of renal insufficiency with electrolyte imbalance. ALLERGY TO MEDICATIONS: NO REPORTED KNOWN ALLERGY. SOCIAL HISTORY: No reported known history of severe smoking or alcohol intake as per record. FAMILY HISTORY: Unknown. CURRENT MEDICATIONS: Medication lists were reviewed. All the available lab and radiology study results were reviewed as well as the patient's most recent record. Unable to give any accurate history. All the information obtained from the medical record, nursing staff record, and medical staff record. PHYSICAL EXAMINATION: GENERAL: A 52-year-old female, intubated, sedated. HEENT: Showed pale dry oral mucoid membrane. Nonicteric sclerae. VITAL SIGNS: The patient is afebrile with pulse of 82, blood pressure 102/68. LUNGS: Scattered bilateral crepitation with decreased air entry at bases bilaterally. HEART: Positive S1 and S2, with increased rate. ABDOMEN: Mild generalized tenderness and distention. No mass or organomegaly. No rebound tenderness or guarding. EXTREMITIES: Lower extremities edematous changes. The patient has ecchymotic changes in her extremities with what appears to be superficial ulceration. The patient again has necrotic eschar of the lower extremities of unclear etiology with mild to moderate edema. No clubbing or cyanosis. NEUROLOGIC: No reported new neurological deficits, sensory or motor. No reported new focal deficits. IMPRESSION: 1. Malnutrition with hypoalbuminemia and . 2. Anemia. 3. Respiratory failure, intubated. SUGGESTION: 1. Agree with your plan. 2. Sectional abdominal and pelvic scan. 3. Central hyperalimentation. 4. No aggressive GI procedure for now until the patient is more stable clinically. Further recommendations to follow. Salinas Miles MD
--- NOTE | 2018-04-07 08:17 | RAD ---
Chest x-ray single frontal view History: Intubated. Comparison: 04/06/2018 Findings Endotracheal tube somewhat low lying approximately 9 millimeters above the aysha. Retraction approximately 1 centimeter may be helpful. Other lines and tubes in stable position. Mild to moderate venous congestion. Bilateral hilar prominence. Consolidative changes at the left lung base. Biapical pleural thickening with upper lobe granulomatous changes. Tortuous ectatic aorta. Mild cardiomegaly. Degenerative changes in the spine. Impression: Endotracheal tube somewhat low lying approximately 9 millimeters above the aysha. Retraction approximately 1 centimeter may be helpful. Other lines and tubes in stable position. Mild to moderate venous congestion. Bilateral hilar prominence. Consolidative changes at the left lung base. Biapical pleural thickening with upper lobe granulomatous changes. Tortuous ectatic aorta. Mild cardiomegaly.
--- NOTE | 2018-04-07 08:22 | CP.CCUPN ---
<Mik Huynh - Last Filed: 04/07/18 10:44> CCU Subjective - Physician Review Subjective (Free Text): Patient has been and examined. Patient is currently intubated tolerating CPAP Patient was able to answer Review of systems with head nods. She denies any fevers or chills. She states her breathing is about the same. She denies any chest pain or palpitations. She denies any abdominal pain today. CCU Objective - Vital Signs / Intake & Output Vital Signs (Last 4 hours): Vital Signs Pulse Resp BP Pulse Ox 04/07/18 06:09 86 15 84/48 L 100 04/07/18 06:01 84 04/07/18 05:00 87 20 100 04/07/18 04:58 89 18 86/52 L 100 Intake and Output (Last 8hrs): Intake & Output 04/06/18 04/07/18 04/07/18 22:59 06:59 14:59 Intake Total 949 660 Output Total 100 Balance 849 660 Weight 134 lb Intake: Intake, IV Amount 580 620 Left Medial Port Internal 200 320 Jugular Left Proximal Port 300 300 Internal Jugular Right Femoral 80 Oral 20 Tube Feeding 0 0 Blood Product 279 Apheresis Rbc Cp2d As3 Lr 279 2nd Unit [id number] Other 70 40 Apheresis Rbc Cp2d As3 Lr 50 2nd Unit [id number] Output: Gastric Amount 100 Stomach 100 Other: # Voids Urine, Voided 0 0 # Bowel Movements 0 0 - Physical Exam Head: Positive for: Atraumatic Mouth: Positive for: Moist Mucous Membranes Respiratory/Chest: Positive for: Good Air Exchange. Negative for: Respiratory Distress, Accessory Muscle Use Cardiovascular: Positive for: Normal S1, S2, Gallop Abdomen: Positive for: Other (abdomen reveals a 5 cm circular bulb no Bowel sounds in bulb). Negative for: Rebound, Guarding Upper Extremity: Positive for: Edema. Negative for: Cyanosis Lower Extremity: Positive for: Other (non-blanching ecchymotic lesions covering more than 25 percent of lower extremity and abdomen. S/P debridement with Dressing b/L. ) Neurological: Negative for: GCS=15 (11T) Psychiatric: Positive for: Alert - Medications Active Medications: Active Medications Generic Name Dose Route Start Last Admin Trade Name Freq PRN Reason Stop Dose Admin Albuterol/Ipratropium 3 ml 04/03/18 09:30 04/03/18 13:37 Duoneb 3 Mg/0.5 Mg (3 Ml) Ud INH 3 ml RQ6 PRN Administration Shortness of Breath Ascorbic Acid 500 mg 04/02/18 10:00 04/06/18 17:33 Vitamin C 500 Mg Tab PO Not Given BID NOLAN Calcium Acetate 1,334 mg 04/05/18 09:32 04/06/18 17:33 Phoslo PO Not Given TIDCC NOLAN Ergocalciferol 1 cap 04/04/18 10:45 04/04/18 12:11 Drisdol 50,000 Intl Units Cap PO 1 cap Q7D NOLAN Administration Ferrous Gluconate 324 mg 04/04/18 14:00 04/06/18 17:33 Fergon PO Not Given TID NOLAN Heparin Sodium (Porcine) 5,000 units 04/02/18 22:00 04/03/18 21:18 Heparin SC 5,000 units Q12 NOLAN Administration Linezolid 600 mg in 300 mls @ 200 mls/hr 04/01/18 22:00 04/06/18 21:30 Zyvox 600mg/300ml D5w IVPB 200 mls/hr Q12 NOLAN Administration Protocol Doxycycline Hyclate 100 mg/ 100 mls @ 100 mls/hr 04/02/18 13:00 04/07/18 00: 00 Sodium Chloride IVPB 100 mls/hr Q12H NOLAN Administration Protocol Dexmedetomidine HCl 200 mcg/ 50 mls @ 2.7 mls/hr 04/03/18 09:45 04/05/18 05: 00 Sodium Chloride IV Infused TITR NOLAN Titration Protocol 0.2 MCG/KG/HR Dextrose 1,000 mls @ 40 mls/hr 04/05/18 08:00 04/06/18 07:38 Dextrose 10% In Water IV 40 mls/hr .Q24H NOLAN Administration Ampicillin 2 gm/ Sodium 100 mls @ 200 mls/hr 04/06/18 12:00 04/07/18 03:00 Chloride IVPB 200 mls/hr Q8H NOLAN Administration Protocol Lorazepam 2 mg 04/01/18 22:32 04/01/18 22:46 Ativan IVP 2 mg Q6H PRN Administration Anxiety Multivitamins/Vitamin C 5 ml 04/03/18 10:15 04/06/18 09:28 Multi-Delyn Liquid PO Not Given DAILY NOLAN Pantoprazole Sodium 40 mg 04/02/18 10:00 04/06/18 09:25 Protonix Inj IVP 40 mg DAILY NOLAN Administration - Patient Studies Lab Studies: Microbiology Studies 04/03/18 20:22 Gram Stain - Final Leg - Left Wound Culture - Final Coagulase Neg Staphylococcus 04/03/18 19:30 Gram Stain - Final Leg - Right Wound Culture - Preliminary No growth. 04/02/18 08:53 Blood Culture - Preliminary Blood-Venous NO GROWTH AFTER 4 DAYS 04/02/18 08:53 Blood Culture - Preliminary Blood-Venous NO GROWTH AFTER 4 DAYS Lab Studies 04/07/18 04/07/18 04/07/18 Range/Units 06:14 06:02 05:59 WBC 28.9 H (4.8-10.8) K/uL RBC 2.91 L (3.80-5.20) Mil/uL Hgb 8.1 L (11.0-16.0) g/dL Hct 23.5 L (34.0-47.0) % MCV 81.0 (81.0-99.0) fL MCH 27.8 (27.0-31.0) pg MCHC 34.3 (33.0-37.0) g/dL RDW 18.6 H (11.5-14.5) % Plt Count 77 L (130-400) K/uL MPV 9.4 (7.2-11.7) fL Neut % (Auto) 92.7 H (50.0-75.0) % Lymph % (Auto) 3.9 L (20.0-40.0) % [place] % (Auto) 3.3 (0.0-10.0) % Eos % (Auto) 0.0 (0.0-4.0) % Baso % (Auto) 0.1 (0.0-2.0) % Neut # (Auto) 26.8 H (1.8-7.0) K/uL Lymph # (Auto) 1.1 (1.0-4.3) K/uL [place] # (Auto) 0.9 H (0.0-0.8) K/uL Eos # (Auto) 0.0 (0.0-0.7) K/uL Baso # (Auto) 0.0 (0.0-0.2) K/uL Neutrophils % (Manual) (50-75) % Band Neutrophils % (0-2) % Lymphocytes % (Manual) (20-40) % Monocytes % (Manual) (0-10) % Platelet Estimate (NORMAL) Polychromasia Hypochromasia (manual) Anisocytosis (manual) Microcytosis (manual) Ovalocytes Schistocytes Puncture Site pCO2 (35-45) mm/Hg pO2 (80-100) mm/Hg HCO3 (21-28) mmol/L ABG pH (7.35-7.45) ABG Total CO2 (22-28) mmol/L ABG O2 Saturation (95-98) % ABG Base Excess (-2.0-3.0) mmol/L ABG Hemoglobin (11.7-17.4) g/dL ABG Carboxyhemoglobin (0.5-1.5) % POC ABG HHb (Measured) (0.0-5.0) % ABG Methemoglobin (0.0-3.0) % Jann Test A-a O2 Difference mm/Hg Respiratory Index Hgb O2 Saturation (95.0-98.0) % Vent Mode Mechanical Rate FiO2 % Tidal Volume PEEP Sodium 129 L (132-148) mmol/L Potassium 4.1 (3.6-5.2) mmol/L Chloride 92 L (98-107) mmol/L Carbon Dioxide 24 (22-30) mmol/L Anion Gap 17 (10-20) BUN 55 H (7-17) mg/dL Creatinine 2.6 H (0.7-1.2) mg/dL Est GFR ( Amer) 23 Est GFR (Non-Af Amer) 19 POC Glucose (mg/dL) 99 (65-110) mg/dL Random Glucose 71 (65-105) mg/dL Calcium 7.7 L (8.6-10.4) mg/dl Phosphorus 5.3 H (2.5-4.5) mg/dL Magnesium 2.0 (1.6-2.3) mg/dL Total Bilirubin 0.8 (0.2-1.3) mg/dL AST 29 (14-36) U/L ALT 40 (9-52) U/L Alkaline Phosphatase 125 (38-126) U/L Total Creatine Kinase (30-135) U/L Total Protein 4.3 L (6.3-8.3) g/dL Albumin 2.0 L (3.5-5.0) g/dL Globulin 2.2 (2.2-3.9) gm/dL Albumin/Globulin Ratio 0.9 L (1.0-2.1) Anti-Staphylolysin O (NEGATIVE) JAK2 V617F Specimen JAK2 V617F Method JAK2 % V617F Mutation % mutation JAK2 V617F Comment JAK2 V617F Review By Blood Type Antibody Screen 04/07/18 04/07/18 04/06/18 Range/Units 05:21 00:42 21:09 WBC (4.8-10.8) K/uL RBC (3.80-5.20) Mil/uL Hgb (11.0-16.0) g/dL Hct (34.0-47.0) % MCV (81.0-99.0) fL MCH (27.0-31.0) pg MCHC (33.0-37.0) g/dL RDW (11.5-14.5) % Plt Count (130-400) K/uL MPV (7.2-11.7) fL Neut % (Auto) (50.0-75.0) % Lymph % (Auto) (20.0-40.0) % [place] % (Auto) (0.0-10.0) % Eos % (Auto) (0.0-4.0) % Baso % (Auto) (0.0-2.0) % Neut # (Auto) (1.8-7.0) K/uL Lymph # (Auto) (1.0-4.3) K/uL [place] # (Auto) (0.0-0.8) K/uL Eos # (Auto) (0.0-0.7) K/uL Baso # (Auto) (0.0-0.2) K/uL Neutrophils % (Manual) (50-75) % Band Neutrophils % (0-2) % Lymphocytes % (Manual) (20-40) % Monocytes % (Manual) (0-10) % Platelet Estimate (NORMAL) Polychromasia Hypochromasia (manual) Anisocytosis (manual) Microcytosis (manual) Ovalocytes Schistocytes Puncture Site L brach pCO2 27 L (35-45) mm/Hg pO2 187 H (80-100) mm/Hg HCO3 24.6 (21-28) mmol/L ABG pH 7.52 H (7.35-7.45) ABG Total CO2 22.8 (22-28) mmol/L ABG O2 Saturation 98.6 H (95-98) % ABG Base Excess -0.4 (-2.0-3.0) mmol/L ABG Hemoglobin 8.1 L (11.7-17.4) g/dL ABG Carboxyhemoglobin 1.1 (0.5-1.5) % POC ABG HHb (Measured) 1.4 (0.0-5.0) % ABG Methemoglobin 1.3 (0.0-3.0) % Jann Test Na A-a O2 Difference 64.0 mm/Hg Respiratory Index 0.3 Hgb O2 Saturation 96.3 (95.0-98.0) % Vent Mode Prvc Mechanical Rate 16 FiO2 40.0 % Tidal Volume 450 PEEP 5 Sodium 130 L (132-148) mmol/L Potassium 4.1 (3.6-5.2) mmol/L Chloride 94 L (98-107) mmol/L Carbon Dioxide 23 (22-30) mmol/L Anion Gap 17 (10-20) BUN 56 H (7-17) mg/dL Creatinine 2.5 H (0.7-1.2) mg/dL Est GFR ( Amer) 24 Est GFR (Non-Af Amer) 20 POC Glucose (mg/dL) 107 (65-110) mg/dL Random Glucose 90 (65-105) mg/dL Calcium 7.7 L (8.6-10.4) mg/dl Phosphorus (2.5-4.5) mg/dL Magnesium (1.6-2.3) mg/dL Total Bilirubin 0.9 (0.2-1.3) mg/dL AST 26 (14-36) U/L ALT 45 (9-52) U/L Alkaline Phosphatase 115 (38-126) U/L Total Creatine Kinase (30-135) U/L Total Protein 4.1 L (6.3-8.3) g/dL Albumin 2.0 L (3.5-5.0) g/dL Globulin 2.0 L (2.2-3.9) gm/dL Albumin/Globulin Ratio 1.0 (1.0-2.1) Anti-Staphylolysin O (NEGATIVE) JAK2 V617F Specimen JAK2 V617F Method JAK2 % V617F Mutation % mutation JAK2 V617F Comment JAK2 V617F Review By Blood Type Antibody Screen 04/06/18 04/06/18 04/06/18 Range/Units 21:09 17:49 12:12 WBC 26.9 H (4.8-10.8) K/uL RBC 2.96 L (3.80-5.20) Mil/uL Hgb 8.2 L (11.0-16.0) g/dL Hct 23.9 L (34.0-47.0) % MCV 80.5 L (81.0-99.0) fL MCH 27.8 (27.0-31.0) pg MCHC 34.5 (33.0-37.0) g/dL RDW 18.6 H (11.5-14.5) % Plt Count 73 L D (130-400) K/uL MPV 9.2 (7.2-11.7) fL Neut % (Auto) 92.6 H (50.0-75.0) % Lymph % (Auto) 4.2 L (20.0-40.0) % [place] % (Auto) 3.2 (0.0-10.0) % Eos % (Auto) 0.0 (0.0-4.0) % Baso % (Auto) 0.0 (0.0-2.0) % Neut # (Auto) 24.9 H (1.8-7.0) K/uL Lymph # (Auto) 1.1 (1.0-4.3) K/uL [place] # (Auto) 0.9 H (0.0-0.8) K/uL Eos # (Auto) 0.0 (0.0-0.7) K/uL Baso # (Auto) 0.0 (0.0-0.2) K/uL Neutrophils % (Manual) 90 H (50-75) % Band Neutrophils % 5 H (0-2) % Lymphocytes % (Manual) 2 L (20-40) % Monocytes % (Manual) 3 (0-10) % Platelet Estimate Slightly decreased L (NORMAL) Polychromasia Hypochromasia (manual) Slight Anisocytosis (manual) Microcytosis (manual) Slight Ovalocytes Slight Schistocytes Slight Puncture Site pCO2 (35-45) mm/Hg pO2 (80-100) mm/Hg HCO3 (21-28) mmol/L ABG pH (7.35-7.45) ABG Total CO2 (22-28) mmol/L ABG O2 Saturation (95-98) % ABG Base Excess (-2.0-3.0) mmol/L ABG Hemoglobin (11.7-17.4) g/dL ABG Carboxyhemoglobin (0.5-1.5) % POC ABG HHb (Measured) (0.0-5.0) % ABG Methemoglobin (0.0-3.0) % Jann Test A-a O2 Difference mm/Hg Respiratory Index Hgb O2 Saturation (95.0-98.0) % Vent Mode Mechanical Rate FiO2 % Tidal Volume PEEP Sodium (132-148) mmol/L Potassium (3.6-5.2) mmol/L Chloride (98-107) mmol/L Carbon Dioxide (22-30) mmol/L Anion Gap (10-20) BUN (7-17) mg/dL Creatinine (0.7-1.2) mg/dL Est GFR ( Amer) Est GFR (Non-Af Amer) POC Glucose (mg/dL) 98 (65-110) mg/dL Random Glucose (65-105) mg/dL Calcium (8.6-10.4) mg/dl Phosphorus (2.5-4.5) mg/dL Magnesium (1.6-2.3) mg/dL Total Bilirubin (0.2-1.3) mg/dL AST (14-36) U/L ALT (9-52) U/L Alkaline Phosphatase (38-126) U/L Total Creatine Kinase 53 (30-135) U/L Total Protein (6.3-8.3) g/dL Albumin (3.5-5.0) g/dL Globulin (2.2-3.9) gm/dL Albumin/Globulin Ratio (1.0-2.1) Anti-Staphylolysin O (NEGATIVE) JAK2 V617F Specimen JAK2 V617F Method JAK2 % V617F Mutation % mutation JAK2 V617F Comment JAK2 V617F Review By Blood Type Antibody Screen 05/17/18 05/17/18 05/17/18 Range/Units 12:12 11:50 08:41 WBC (4.8-10.8) K/uL RBC (3.80-5.20) Mil/uL Hgb (11.0-16.0) g/dL Hct (34.0-47.0) % MCV (81.0-99.0) fL MCH (27.0-31.0) pg MCHC (33.0-37.0) g/dL RDW (11.5-14.5) % Plt Count (130-400) K/uL MPV (7.2-11.7) fL Neut % (Auto) (50.0-75.0) % Lymph % (Auto) (20.0-40.0) % [place] % (Auto) (0.0-10.0) % Eos % (Auto) (0.0-4.0) % Baso % (Auto) (0.0-2.0) % Neut # (Auto) (1.8-7.0) K/uL Lymph # (Auto) (1.0-4.3) K/uL [place] # (Auto) (0.0-0.8) K/uL Eos # (Auto) (0.0-0.7) K/uL Baso # (Auto) (0.0-0.2) K/uL Neutrophils % (Manual) (50-75) % Band Neutrophils % (0-2) % Lymphocytes % (Manual) (20-40) % Monocytes % (Manual) (0-10) % Platelet Estimate (NORMAL) Polychromasia Hypochromasia (manual) Anisocytosis (manual) Microcytosis (manual) Ovalocytes Schistocytes Puncture Site pCO2 (35-45) mm/Hg pO2 (80-100) mm/Hg HCO3 (21-28) mmol/L ABG pH (7.35-7.45) ABG Total CO2 (22-28) mmol/L ABG O2 Saturation (95-98) % ABG Base Excess (-2.0-3.0) mmol/L ABG Hemoglobin (11.7-17.4) g/dL ABG Carboxyhemoglobin (0.5-1.5) % POC ABG HHb (Measured) (0.0-5.0) % ABG Methemoglobin (0.0-3.0) % Jann Test A-a O2 Difference mm/Hg Respiratory Index Hgb O2 Saturation (95.0-98.0) % Vent Mode Mechanical Rate FiO2 % Tidal Volume PEEP Sodium (132-148) mmol/L Potassium (3.6-5.2) mmol/L Chloride (98-107) mmol/L Carbon Dioxide (22-30) mmol/L Anion Gap (10-20) BUN (7-17) mg/dL Creatinine (0.7-1.2) mg/dL Est GFR ( Amer) Est GFR (Non-Af Amer) POC Glucose (mg/dL) 106 (65-110) mg/dL Random Glucose (65-105) mg/dL Calcium (8.6-10.4) mg/dl Phosphorus (2.5-4.5) mg/dL Magnesium (1.6-2.3) mg/dL Total Bilirubin (0.2-1.3) mg/dL AST (14-36) U/L ALT (9-52) U/L Alkaline Phosphatase (38-126) U/L Total Creatine Kinase (30-135) U/L Total Protein (6.3-8.3) g/dL Albumin (3.5-5.0) g/dL Globulin (2.2-3.9) gm/dL Albumin/Globulin Ratio (1.0-2.1) Anti-Staphylolysin O Negative (NEGATIVE) JAK2 V617F Specimen JAK2 V617F Method JAK2 % V617F Mutation % mutation JAK2 V617F Comment JAK2 V617F Review By Blood Type O POSITIVE Antibody Screen Negative 04/06/18 04/03/18 Range/Units 06:29 12:01 WBC (4.8-10.8) K/uL RBC (3.80-5.20) Mil/uL Hgb (11.0-16.0) g/dL Hct (34.0-47.0) % MCV (81.0-99.0) fL MCH (27.0-31.0) pg MCHC (33.0-37.0) g/dL RDW (11.5-14.5) % Plt Count (130-400) K/uL MPV (7.2-11.7) fL Neut % (Auto) (50.0-75.0) % Lymph % (Auto) (20.0-40.0) % [place] % (Auto) (0.0-10.0) % Eos % (Auto) (0.0-4.0) % Baso % (Auto) (0.0-2.0) % Neut # (Auto) (1.8-7.0) K/uL Lymph # (Auto) (1.0-4.3) K/uL [place] # (Auto) (0.0-0.8) K/uL Eos # (Auto) (0.0-0.7) K/uL Baso # (Auto) (0.0-0.2) K/uL Neutrophils % (Manual) 91 H (50-75) % Band Neutrophils % 1 (0-2) % Lymphocytes % (Manual) 5 L (20-40) % Monocytes % (Manual) 3 (0-10) % Platelet Estimate Normal (NORMAL) Polychromasia Slight Hypochromasia (manual) Slight Anisocytosis (manual) Slight Microcytosis (manual) Ovalocytes Schistocytes Puncture Site pCO2 (35-45) mm/Hg pO2 (80-100) mm/Hg HCO3 (21-28) mmol/L ABG pH (7.35-7.45) ABG Total CO2 (22-28) mmol/L ABG O2 Saturation (95-98) % ABG Base Excess (-2.0-3.0) mmol/L ABG Hemoglobin (11.7-17.4) g/dL ABG Carboxyhemoglobin (0.5-1.5) % POC ABG HHb (Measured) (0.0-5.0) % ABG Methemoglobin (0.0-3.0) % Jann Test A-a O2 Difference mm/Hg Respiratory Index Hgb O2 Saturation (95.0-98.0) % Vent Mode Mechanical Rate FiO2 % Tidal Volume PEEP Sodium (132-148) mmol/L Potassium (3.6-5.2) mmol/L Chloride (98-107) mmol/L Carbon Dioxide (22-30) mmol/L Anion Gap (10-20) BUN (7-17) mg/dL Creatinine (0.7-1.2) mg/dL Est GFR ( Amer) Est GFR (Non-Af Amer) POC Glucose (mg/dL) (65-110) mg/dL Random Glucose (65-105) mg/dL Calcium (8.6-10.4) mg/dl Phosphorus (2.5-4.5) mg/dL Magnesium (1.6-2.3) mg/dL Total Bilirubin (0.2-1.3) mg/dL AST (14-36) U/L ALT (9-52) U/L Alkaline Phosphatase (38-126) U/L Total Creatine Kinase (30-135) U/L Total Protein (6.3-8.3) g/dL Albumin (3.5-5.0) g/dL Globulin (2.2-3.9) gm/dL Albumin/Globulin Ratio (1.0-2.1) Anti-Staphylolysin O (NEGATIVE) JAK2 V617F Specimen Peripheral blood JAK2 V617F Method See below JAK2 % V617F Mutation 0.0 % mutation JAK2 V617F Comment see note JAK2 V617F Review By see note Blood Type Antibody Screen Laboratory Results - last 24 hr 04/03/18 04/06/18 04/06/18 12:01 06:29 08:41 WBC RBC Hgb Hct MCV MCH MCHC RDW Plt Count MPV Neut % (Auto) Lymph % (Auto) [place] % (Auto) Eos % (Auto) Baso % (Auto) Neut # (Auto) Lymph # (Auto) [place] # (Auto) Eos # (Auto) Baso # (Auto) Neutrophils % (Manual) 91 H Band Neutrophils % 1 Lymphocytes % (Manual) 5 L Monocytes % (Manual) 3 Platelet Estimate Normal Polychromasia Slight Hypochromasia (manual) Slight Anisocytosis (manual) Slight Microcytosis (manual) Ovalocytes Schistocytes Puncture Site pCO2 pO2 HCO3 ABG pH ABG Total CO2 ABG O2 Saturation ABG Base Excess ABG Hemoglobin ABG Carboxyhemoglobin POC ABG HHb (Measured) ABG Methemoglobin Jann Test A-a O2 Difference Respiratory Index Hgb O2 Saturation Vent Mode Mechanical Rate FiO2 Tidal Volume PEEP Sodium Potassium Chloride Carbon Dioxide Anion Gap BUN Creatinine Est GFR ( Amer) Est GFR (Non-Af Amer) POC Glucose (mg/dL) Random Glucose Calcium Phosphorus Magnesium Total Bilirubin AST ALT Alkaline Phosphatase Total Creatine Kinase Total Protein Albumin Globulin Albumin/Globulin Ratio Anti-Staphylolysin O JAK2 V617F Specimen Peripheral blood JAK2 V617F Method See below JAK2 % V617F Mutation 0.0 JAK2 V617F Comment see note JAK2 V617F Review By see note Blood Type O POSITIVE Antibody Screen Negative 04/06/18 04/06/18 04/06/18 11:50 12:12 12:12 WBC RBC Hgb Hct MCV MCH MCHC RDW Plt Count MPV Neut % (Auto) Lymph % (Auto) [place] % (Auto) Eos % (Auto) Baso % (Auto) Neut # (Auto) Lymph # (Auto) [place] # (Auto) Eos # (Auto) Baso # (Auto) Neutrophils % (Manual) Band Neutrophils % Lymphocytes % (Manual) Monocytes % (Manual) Platelet Estimate Polychromasia Hypochromasia (manual) Anisocytosis (manual) Microcytosis (manual) Ovalocytes Schistocytes Puncture Site pCO2 pO2 HCO3 ABG pH ABG Total CO2 ABG O2 Saturation ABG Base Excess ABG Hemoglobin ABG Carboxyhemoglobin POC ABG HHb (Measured) ABG Methemoglobin Jann Test A-a O2 Difference Respiratory Index Hgb O2 Saturation Vent Mode Mechanical Rate FiO2 Tidal Volume PEEP Sodium Potassium Chloride Carbon Dioxide Anion Gap BUN Creatinine Est GFR ( Amer) Est GFR (Non-Af Amer) POC Glucose (mg/dL) 106 Random Glucose Calcium Phosphorus Magnesium Total Bilirubin AST ALT Alkaline Phosphatase Total Creatine Kinase 53 Total Protein Albumin Globulin Albumin/Globulin Ratio Anti-Staphylolysin O Negative JAK2 V617F Specimen JAK2 V617F Method JAK2 % V617F Mutation JAK2 V617F Comment JAK2 V617F Review By Blood Type Antibody Screen 04/06/18 04/06/18 04/06/18 17:49 21:09 21:09 WBC 26.9 H RBC 2.96 L Hgb 8.2 L Hct 23.9 L MCV 80.5 L MCH 27.8 MCHC 34.5 RDW 18.6 H Plt Count 73 L D MPV 9.2 Neut % (Auto) 92.6 H Lymph % (Auto) 4.2 L [place] % (Auto) 3.2 Eos % (Auto) 0.0 Baso % (Auto) 0.0 Neut # (Auto) 24.9 H Lymph # (Auto) 1.1 [place] # (Auto) 0.9 H Eos # (Auto) 0.0 Baso # (Auto) 0.0 Neutrophils % (Manual) 90 H Band Neutrophils % 5 H Lymphocytes % (Manual) 2 L Monocytes % (Manual) 3 Platelet Estimate Slightly decreased L Polychromasia Hypochromasia (manual) Slight Anisocytosis (manual) Microcytosis (manual) Slight Ovalocytes Slight Schistocytes Slight Puncture Site pCO2 pO2 HCO3 ABG pH ABG Total CO2 ABG O2 Saturation ABG Base Excess ABG Hemoglobin ABG Carboxyhemoglobin POC ABG HHb (Measured) ABG Methemoglobin Jann Test A-a O2 Difference Respiratory Index Hgb O2 Saturation Vent Mode Mechanical Rate FiO2 Tidal Volume PEEP Sodium 130 L Potassium 4.1 Chloride 94 L Carbon Dioxide 23 Anion Gap 17 BUN 56 H Creatinine 2.5 H Est GFR ( Amer) 24 Est GFR (Non-Af Amer) 20 POC Glucose (mg/dL) 98 Random Glucose 90 Calcium 7.7 L Phosphorus Magnesium Total Bilirubin 0.9 AST 26 ALT 45 Alkaline Phosphatase 115 Total Creatine Kinase Total Protein 4.1 L Albumin 2.0 L Globulin 2.0 L Albumin/Globulin Ratio 1.0 Anti-Staphylolysin O JAK2 V617F Specimen JAK2 V617F Method JAK2 % V617F Mutation JAK2 V617F Comment JAK2 V617F Review By Blood Type Antibody Screen 04/07/18 04/07/18 04/07/18 00:42 05:21 05:59 WBC 28.9 H RBC 2.91 L Hgb 8.1 L Hct 23.5 L MCV 81.0 MCH 27.8 MCHC 34.3 RDW 18.6 H Plt Count 77 L MPV 9.4 Neut % (Auto) 92.7 H Lymph % (Auto) 3.9 L [place] % (Auto) 3.3 Eos % (Auto) 0.0 Baso % (Auto) 0.1 Neut # (Auto) 26.8 H Lymph # (Auto) 1.1 [place] # (Auto) 0.9 H Eos # (Auto) 0.0 Baso # (Auto) 0.0 Neutrophils % (Manual) Band Neutrophils % Lymphocytes % (Manual) Monocytes % (Manual) Platelet Estimate Polychromasia Hypochromasia (manual) Anisocytosis (manual) Microcytosis (manual) Ovalocytes Schistocytes Puncture Site L brach pCO2 27 L pO2 187 H HCO3 24.6 ABG pH 7.52 H ABG Total CO2 22.8 ABG O2 Saturation 98.6 H ABG Base Excess -0.4 ABG Hemoglobin 8.1 L ABG Carboxyhemoglobin 1.1 POC ABG HHb (Measured) 1.4 ABG Methemoglobin 1.3 Jann Test Na A-a O2 Difference 64.0 Respiratory Index 0.3 Hgb O2 Saturation 96.3 Vent Mode Prvc Mechanical Rate 16 FiO2 40.0 Tidal Volume 450 PEEP 5 Sodium Potassium Chloride Carbon Dioxide Anion Gap BUN Creatinine Est GFR ( Amer) Est GFR (Non-Af Amer) POC Glucose (mg/dL) 107 Random Glucose Calcium Phosphorus Magnesium Total Bilirubin AST ALT Alkaline Phosphatase Total Creatine Kinase Total Protein Albumin Globulin Albumin/Globulin Ratio Anti-Staphylolysin O JAK2 V617F Specimen JAK2 V617F Method JAK2 % V617F Mutation JAK2 V617F Comment JAK2 V617F Review By Blood Type Antibody Screen 04/07/18 04/07/18 06:02 06:14 WBC RBC Hgb Hct MCV MCH MCHC RDW Plt Count MPV Neut % (Auto) Lymph % (Auto) [place] % (Auto) Eos % (Auto) Baso % (Auto) Neut # (Auto) Lymph # (Auto) [place] # (Auto) Eos # (Auto) Baso # (Auto) Neutrophils % (Manual) Band Neutrophils % Lymphocytes % (Manual) Monocytes % (Manual) Platelet Estimate Polychromasia Hypochromasia (manual) Anisocytosis (manual) Microcytosis (manual) Ovalocytes Schistocytes Puncture Site pCO2 pO2 HCO3 ABG pH ABG Total CO2 ABG O2 Saturation ABG Base Excess ABG Hemoglobin ABG Carboxyhemoglobin POC ABG HHb (Measured) ABG Methemoglobin Jann Test A-a O2 Difference Respiratory Index Hgb O2 Saturation Vent Mode Mechanical Rate FiO2 Tidal Volume PEEP Sodium 129 L Potassium 4.1 Chloride 92 L Carbon Dioxide 24 Anion Gap 17 BUN 55 H Creatinine 2.6 H Est GFR ( Amer) 23 Est GFR (Non-Af Amer) 19 POC Glucose (mg/dL) 99 Random Glucose 71 Calcium 7.7 L Phosphorus 5.3 H Magnesium 2.0 Total Bilirubin 0.8 AST 29 ALT 40 Alkaline Phosphatase 125 Total Creatine Kinase Total Protein 4.3 L Albumin 2.0 L Globulin 2.2 Albumin/Globulin Ratio 0.9 L Anti-Staphylolysin O JAK2 V617F Specimen JAK2 V617F Method JAK2 % V617F Mutation JAK2 V617F Comment JAK2 V617F Review By Blood Type Antibody Screen Fingerstick Blood Sugar Results: 99 Review of Systems - Review of Systems Systems not reviewed;Unavailable: Intubated Review of Systems: As per HPI Critical Care Progress Note - Nutrition Nutrition: Nutrition Category Date Time Status NPO Diet [DIET] Diets 04/06/18 Breakfast Active Assessment/Plan - Assessment and Plan (Free Text) Assessment: 52 year old female with Unspecified medical history who presented to [facility] ICU from [facility] Emergency Room. [place] On Admission patient was found to have leukocytosis and significant skin excoriations, foul smelling ulcer in the right leg, multiple ecchymosis in the abdomen/groin area/lower extremity, necrotic tissue on lower extremity and bullae. Patiently found to be severely Anemic and was transfused a total of 5 PRBC's. Patient is edematous in the upper and lower extremities b/ l. 04/04: Transfused 2 Units of PRBC's 04/06: Lower extremity Wound Debridement, Began Discussion of Transfer to Burn Unit. 04/07: Started on CPAP Plan: Neuro GCS: 11T Sedation: None Cardio: ECHO (04/02): Shows Normal EF (55%) Pulm: CXR (04/04): Endotracheal and NG tube in place. Mild venous congestion. Bilateral hilar prominence. Tortuous ectatic aorta. Biapical pleural thickening with upper lobe granulomatous changes. ABG (04/04): pH-7.56, C02-24, 02-188, HCO3-24.6 ABG (04/05): pH-7.56, C02 - 26, 02-157, HCO3-23.9 ABG ( 04/07): pH-7.52, C02 - 27, 02 - 187, HCO3-24.6 Vent: CPAP, Tolerating Trial of Extubation today. GI A: Elevated LFT's (Resolved) Abd/Pelvis CT (04/02/18): Prominent gallbladder distention with cholelithiasis. Clinically correlate for potential cholecystitis. Possible ileus or early distal small bowel obstruction. Potential segmental colitis in various large-bowel segments though this is limited in diagnostic power due to collapse of the majority of the large bowel. Mild bilateral hydroureteronephrosis potentially on the basis of enlarged myomatous uterus. Potential infectious or inflammatory process affecting the uterus. Myomatous uterine changes also noted. Anasarca and trace ascites. Hepatitis Panel - NEGATIVE OBGYN A: Uterine Mass TV US (Held) until patient is more stable. Renal A: LULA , Hypocalcemia, Hyperphosphetemia, Hyponatremia Complement Studies per ID - NEGATIVE [place] -137 Lambda-94, Lupus, MicroAlbumin w/ Cr - Elevated Total Protein - Elevated , Serum Immunifixation Detected. Renal US (04/04): B/L mild hyronephrosis. small non-obstructing renal calculi in Right Kidney phos binders, nephrovite, vit D, iron supplements per Nephro urology consult for b/l hydronephrosis per Nephro, Recs appreciated. Hemodialysis MWF, Dialysis Today. via permacath. Monitor Electrolytes Heme/Onc A: Iron Def. Anemia s/p 5 Units of PRBCs, thromboycytopenia (Acute). 2 Units of PRBC's transfused on 04/04/18. Hematology/Onc Consulted (Dr. Ospina), Recs Appreciated Myeloproliferative Disorder RUle OUT. BCR/ABL1 GENE PCR - Not Detected, MACY - Negative? , ASO- Negative HgB Stable CA 125 - 90.6 , CA19-9 - 286 , CEA - 5.7. All ordered tumor markers elevated. DIC Workup to rule out Purpura Fulminans -Fibrinogen (WNL) Fibrin Split Products - Order Cancelled in AM (Unknown who) , Pt/PTT, Retic Count (WNL), Haptoglobin (Elevated), D- Dimer (Elevated, likely due to Malignancy) Haptoglobin - 346.1 (Elevated) F/U HIT EPO per Renal. Ferrous Gluconated 324mg PO TID ID A: Leukocytosis (Improving), Purpura Fulminans? ID Consulted (Dr. Camarena, Recs appreciated) Lower Ext CT (04/02): Anasarca type pattern is favored over fasciitis of the bilateral lower extremities diffusely and is favored over fasciitis the fasciitis is still not excluded, a CT diagnosis is difficult to make without intravenous contrast. Necrotizing fasciitis is not identified however. Further clinical correlation is recommended. Blood Cultures (04/01 [place] ED): POSITIVE for Listeria Monocytogenes Blood Cultures (04/02): NEGATIVE Wound Cultures (04/02): Left and Right leg NEGATIVE (Prelim) ESR (04/03): WNL Hepatitis Panel - NEGATIVE Anitbiotics: Cont. Zyvox, Doxycycline, Clindamycin, Cont. Ampicillin General Surgery/Vascular Surgery Consulted, Recs Appreciated. Stool for Vibrio Cholera per ID Wound Cultures - POSITIVE for Coagulase Negative Staph - Likely contamination. DIC Workup showed Elevated Haptoglobin and elevated D-dimer. Integumentary A: Status post wound debridement of Lower Extremity Will discuss will family transfer to Burn Unit for better management of extensive skin wounds. Endo A: Vitamin D Def. 2000 IU Vitamin D Daily Proph Protonix IV Daily Patient seen and discussed with ICU Attending Mik Huynh, PGY-1 <Yomi Mckeon - Last Filed: 04/07/18 17:10> CCU Objective - Vital Signs / Intake & Output Vital Signs (Last 4 hours): Vital Signs Pulse Resp BP Pulse Ox 04/07/18 14:19 82 19 88/47 L 100 04/07/18 14:00 79 18 100 04/07/18 13:58 83 17 82/41 L 100 Intake and Output (Last 8hrs): Intake & Output 04/07/18 04/07/18 04/07/18 06:59 14:59 22:59 Intake Total 660 720 Balance 660 720 Weight 134 lb Intake: Intake, IV Amount 620 560 Left Medial Port Internal 320 360 Jugular Left Proximal Port 300 200 Internal Jugular Tube Feeding 0 60 Other 40 100 Other: # Voids Urine, Voided 0 0 # Bowel Movements 0 0 - Medications Active Medications: Active Medications Generic Name Dose Route Start Last Admin Trade Name Freq PRN Reason Stop Dose Admin Albumin Human 25 gm 04/09/18 06:00 Albumin Human 25% (12.5 Gm/50 Ml) IV MWF PRN Other Albuterol/Ipratropium 3 ml 04/03/18 09:30 04/03/18 13:37 Duoneb 3 Mg/0.5 Mg (3 Ml) Ud INH 3 ml RQ6 PRN Administration Shortness of Breath Ascorbic Acid 500 mg 04/02/18 10:00 04/07/18 10:02 Vitamin C 500 Mg Tab PO 500 mg BID NOLAN Administration Calcium Acetate 1,334 mg 04/05/18 09:32 04/07/18 11:58 Phoslo PO 1,334 mg TIDCC NOLAN Administration Ergocalciferol 1 cap 04/04/18 10:45 04/04/18 12:11 Drisdol 50,000 Intl Units Cap PO 1 cap Q7D NOLAN Administration Ferrous Gluconate 324 mg 04/04/18 14:00 04/07/18 13:37 Fergon PO 324 mg TID NOLAN Administration Heparin Sodium (Porcine) 5,000 units 04/02/18 22:00 04/07/18 10:02 Heparin SC 5,000 units Q12 NOLAN Administration Doxycycline Hyclate 100 mg/ 100 mls @ 100 mls/hr 04/02/18 13:00 04/07/18 13: 43 Sodium Chloride IVPB 100 mls/hr Q12H NOLAN Administration Protocol Ampicillin 2 gm/ Sodium 100 mls @ 200 mls/hr 04/06/18 12:00 04/07/18 11:57 Chloride IVPB 200 mls/hr Q8H NOLAN Administration Protocol Gentamicin Sulfate 80 mg/ 102 mls @ 100 mls/hr 04/07/18 18:00 Sodium Chloride IVPB 04/07/18 19:01 ONCE ONE Protocol Vancomycin/Sodium Chloride 1 gm in 200 mls @ 133.333 mls/hr 04/07/18 16:00 Vancomycin 1 Gm/Ns 200 Ml IVPB 04/07/18 17:29 STAT ONE Protocol Lorazepam 2 mg 04/01/18 22:32 04/01/18 22:46 Ativan IVP 2 mg Q6H PRN Administration Anxiety Multivitamins/Vitamin C 5 ml 04/03/18 10:15 04/07/18 10:03 Multi-Delyn Liquid PO 5 ml DAILY NOLAN Administration Pantoprazole Sodium 40 mg 04/02/18 10:00 04/07/18 10:02 Protonix Inj IVP 40 mg DAILY NOLAN Administration - Patient Studies Lab Studies: Microbiology Studies 04/06/18 11:47 Gram Stain - Preliminary Leg - Left 04/03/18 19:30 Gram Stain - Final Leg - Right Wound Culture - Final Coagulase Neg Staphylococcus 04/02/18 08:53 Blood Culture - Final Blood-Venous NO GROWTH AFTER 5 DAYS Gram Stain - Final TEST NOT PERFORMED 04/02/18 08:53 Blood Culture - Final Blood-Venous NO GROWTH AFTER 5 DAYS Gram Stain - Final TEST NOT PERFORMED 04/03/18 20:22 Gram Stain - Final Leg - Left Wound Culture - Final Coagulase Neg Staphylococcus Lab Studies 04/07/18 04/07/18 04/07/18 Range/Units 11:23 06:14 06:02 WBC (4.8-10.8) K/uL RBC (3.80-5.20) Mil/uL Hgb (11.0-16.0) g/dL Hct (34.0-47.0) % MCV (81.0-99.0) fL MCH (27.0-31.0) pg MCHC (33.0-37.0) g/dL RDW (11.5-14.5) % Plt Count (130-400) K/uL MPV (7.2-11.7) fL Neut % (Auto) (50.0-75.0) % Lymph % (Auto) (20.0-40.0) % [place] % (Auto) (0.0-10.0) % Eos % (Auto) (0.0-4.0) % Baso % (Auto) (0.0-2.0) % Neut # (Auto) (1.8-7.0) K/uL Lymph # (Auto) (1.0-4.3) K/uL [place] # (Auto) (0.0-0.8) K/uL Eos # (Auto) (0.0-0.7) K/uL Baso # (Auto) (0.0-0.2) K/uL Neutrophils % (Manual) (50-75) % Band Neutrophils % (0-2) % Lymphocytes % (Manual) (20-40) % Monocytes % (Manual) (0-10) % Toxic Granulation Platelet Estimate (NORMAL) Polychromasia Hypochromasia (manual) Poikilocytosis (manual Anisocytosis (manual) Microcytosis (manual) Ovalocytes Schistocytes Puncture Site pCO2 (35-45) mm/Hg pO2 (80-100) mm/Hg HCO3 (21-28) mmol/L ABG pH (7.35-7.45) ABG Total CO2 (22-28) mmol/L ABG O2 Saturation (95-98) % ABG Base Excess (-2.0-3.0) mmol/L ABG Hemoglobin (11.7-17.4) g/dL ABG Carboxyhemoglobin (0.5-1.5) % POC ABG HHb (Measured) (0.0-5.0) % ABG Methemoglobin (0.0-3.0) % Jann Test A-a O2 Difference mm/Hg Respiratory Index Hgb O2 Saturation (95.0-98.0) % Vent Mode Mechanical Rate FiO2 % Tidal Volume PEEP Sodium 129 L (132-148) mmol/L Potassium 4.1 (3.6-5.2) mmol/L Chloride 92 L (98-107) mmol/L Carbon Dioxide 24 (22-30) mmol/L Anion Gap 17 (10-20) BUN 55 H (7-17) mg/dL Creatinine 2.6 H (0.7-1.2) mg/dL Est GFR ( Amer) 23 Est GFR (Non-Af Amer) 19 POC Glucose (mg/dL) 105 99 (65-110) mg/dL Random Glucose 71 (65-105) mg/dL Calcium 7.7 L (8.6-10.4) mg/dl Phosphorus 5.3 H (2.5-4.5) mg/dL Magnesium 2.0 (1.6-2.3) mg/dL Total Bilirubin 0.8 (0.2-1.3) mg/dL AST 29 (14-36) U/L ALT 40 (9-52) U/L Alkaline Phosphatase 125 (38-126) U/L Total Protein 4.3 L (6.3-8.3) g/dL Albumin 2.0 L (3.5-5.0) g/dL Globulin 2.2 (2.2-3.9) gm/dL Albumin/Globulin Ratio 0.9 L (1.0-2.1) Rheumatoid Factor (<14) IU/mL ULTRASONIC TESTER Antibody (<1.0) AI ULTRASONIC TESTER Antibody Interp (Negative) Double Strand DNA Ab IU/mL Anti-Staphylolysin O (NEGATIVE) JAK2 V617F Specimen JAK2 V617F Method JAK2 % V617F Mutation % mutation JAK2 V617F Comment JAK2 V617F Review By 04/07/18 04/07/18 04/07/18 Range/Units 05:59 05:21 00:42 WBC 28.9 H (4.8-10.8) K/uL RBC 2.91 L (3.80-5.20) Mil/uL Hgb 8.1 L (11.0-16.0) g/dL Hct 23.5 L (34.0-47.0) % MCV 81.0 (81.0-99.0) fL MCH 27.8 (27.0-31.0) pg MCHC 34.3 (33.0-37.0) g/dL RDW 18.6 H (11.5-14.5) % Plt Count 77 L (130-400) K/uL MPV 9.4 (7.2-11.7) fL Neut % (Auto) 92.7 H (50.0-75.0) % Lymph % (Auto) 3.9 L (20.0-40.0) % [place] % (Auto) 3.3 (0.0-10.0) % Eos % (Auto) 0.0 (0.0-4.0) % Baso % (Auto) 0.1 (0.0-2.0) % Neut # (Auto) 26.8 H (1.8-7.0) K/uL Lymph # (Auto) 1.1 (1.0-4.3) K/uL [place] # (Auto) 0.9 H (0.0-0.8) K/uL Eos # (Auto) 0.0 (0.0-0.7) K/uL Baso # (Auto) 0.0 (0.0-0.2) K/uL Neutrophils % (Manual) 94 H (50-75) % Band Neutrophils % 2 (0-2) % Lymphocytes % (Manual) 2 L (20-40) % Monocytes % (Manual) 2 (0-10) % Toxic Granulation Present Platelet Estimate Decreased L (NORMAL) Polychromasia Slight Hypochromasia (manual) Slight Poikilocytosis (manual Slight Anisocytosis (manual) Moderate Microcytosis (manual) Ovalocytes Slight Schistocytes Slight Puncture Site L brach pCO2 27 L (35-45) mm/Hg pO2 187 H (80-100) mm/Hg HCO3 24.6 (21-28) mmol/L ABG pH 7.52 H (7.35-7.45) ABG Total CO2 22.8 (22-28) mmol/L ABG O2 Saturation 98.6 H (95-98) % ABG Base Excess -0.4 (-2.0-3.0) mmol/L ABG Hemoglobin 8.1 L (11.7-17.4) g/dL ABG Carboxyhemoglobin 1.1 (0.5-1.5) % POC ABG HHb (Measured) 1.4 (0.0-5.0) % ABG Methemoglobin 1.3 (0.0-3.0) % Jann Test Na A-a O2 Difference 64.0 mm/Hg Respiratory Index 0.3 Hgb O2 Saturation 96.3 (95.0-98.0) % Vent Mode Prvc Mechanical Rate 16 FiO2 40.0 % Tidal Volume 450 PEEP 5 Sodium (132-148) mmol/L Potassium (3.6-5.2) mmol/L Chloride (98-107) mmol/L Carbon Dioxide (22-30) mmol/L Anion Gap (10-20) BUN (7-17) mg/dL Creatinine (0.7-1.2) mg/dL Est GFR ( Amer) Est GFR (Non-Af Amer) POC Glucose (mg/dL) 107 (65-110) mg/dL Random Glucose (65-105) mg/dL Calcium (8.6-10.4) mg/dl Phosphorus (2.5-4.5) mg/dL Magnesium (1.6-2.3) mg/dL Total Bilirubin (0.2-1.3) mg/dL AST (14-36) U/L ALT (9-52) U/L Alkaline Phosphatase (38-126) U/L Total Protein (6.3-8.3) g/dL Albumin (3.5-5.0) g/dL Globulin (2.2-3.9) gm/dL Albumin/Globulin Ratio (1.0-2.1) Rheumatoid Factor (<14) IU/mL ULTRASONIC TESTER Antibody (<1.0) AI ULTRASONIC TESTER Antibody Interp (Negative) Double Strand DNA Ab IU/mL Anti-Staphylolysin O (NEGATIVE) JAK2 V617F Specimen JAK2 V617F Method JAK2 % V617F Mutation % mutation JAK2 V617F Comment JAK2 V617F Review By 04/06/18 04/06/18 04/06/18 Range/Units 21:09 21:09 17:49 WBC 26.9 H (4.8-10.8) K/uL RBC 2.96 L (3.80-5.20) Mil/uL Hgb 8.2 L (11.0-16.0) g/dL Hct 23.9 L (34.0-47.0) % MCV 80.5 L (81.0-99.0) fL MCH 27.8 (27.0-31.0) pg MCHC 34.5 (33.0-37.0) g/dL RDW 18.6 H (11.5-14.5) % Plt Count 73 L D (130-400) K/uL MPV 9.2 (7.2-11.7) fL Neut % (Auto) 92.6 H (50.0-75.0) % Lymph % (Auto) 4.2 L (20.0-40.0) % [place] % (Auto) 3.2 (0.0-10.0) % Eos % (Auto) 0.0 (0.0-4.0) % Baso % (Auto) 0.0 (0.0-2.0) % Neut # (Auto) 24.9 H (1.8-7.0) K/uL Lymph # (Auto) 1.1 (1.0-4.3) K/uL [place] # (Auto) 0.9 H (0.0-0.8) K/uL Eos # (Auto) 0.0 (0.0-0.7) K/uL Baso # (Auto) 0.0 (0.0-0.2) K/uL Neutrophils % (Manual) 90 H (50-75) % Band Neutrophils % 5 H (0-2) % Lymphocytes % (Manual) 2 L (20-40) % Monocytes % (Manual) 3 (0-10) % Toxic Granulation Platelet Estimate Slightly decreased L (NORMAL) Polychromasia Hypochromasia (manual) Slight Poikilocytosis (manual Anisocytosis (manual) Microcytosis (manual) Slight Ovalocytes Slight Schistocytes Slight Puncture Site pCO2 (35-45) mm/Hg pO2 (80-100) mm/Hg HCO3 (21-28) mmol/L ABG pH (7.35-7.45) ABG Total CO2 (22-28) mmol/L ABG O2 Saturation (95-98) % ABG Base Excess (-2.0-3.0) mmol/L ABG Hemoglobin (11.7-17.4) g/dL ABG Carboxyhemoglobin (0.5-1.5) % POC ABG HHb (Measured) (0.0-5.0) % ABG Methemoglobin (0.0-3.0) % Jann Test A-a O2 Difference mm/Hg Respiratory Index Hgb O2 Saturation (95.0-98.0) % Vent Mode Mechanical Rate FiO2 % Tidal Volume PEEP Sodium 130 L (132-148) mmol/L Potassium 4.1 (3.6-5.2) mmol/L Chloride 94 L (98-107) mmol/L Carbon Dioxide 23 (22-30) mmol/L Anion Gap 17 (10-20) BUN 56 H (7-17) mg/dL Creatinine 2.5 H (0.7-1.2) mg/dL Est GFR ( Amer) 24 Est GFR (Non-Af Amer) 20 POC Glucose (mg/dL) 98 (65-110) mg/dL Random Glucose 90 (65-105) mg/dL Calcium 7.7 L (8.6-10.4) mg/dl Phosphorus (2.5-4.5) mg/dL Magnesium (1.6-2.3) mg/dL Total Bilirubin 0.9 (0.2-1.3) mg/dL AST 26 (14-36) U/L ALT 45 (9-52) U/L Alkaline Phosphatase 115 (38-126) U/L Total Protein 4.1 L (6.3-8.3) g/dL Albumin 2.0 L (3.5-5.0) g/dL Globulin 2.0 L (2.2-3.9) gm/dL Albumin/Globulin Ratio 1.0 (1.0-2.1) Rheumatoid Factor (<14) IU/mL ULTRASONIC TESTER Antibody (<1.0) AI ULTRASONIC TESTER Antibody Interp (Negative) Double Strand DNA Ab IU/mL Anti-Staphylolysin O (NEGATIVE) JAK2 V617F Specimen JAK2 V617F Method JAK2 % V617F Mutation % mutation JAK2 V617F Comment JAK2 V617F Review By 04/06/18 04/06/18 04/06/18 Range/Units 12:12 12:12 12:12 WBC (4.8-10.8) K/uL RBC (3.80-5.20) Mil/uL Hgb (11.0-16.0) g/dL Hct (34.0-47.0) % MCV (81.0-99.0) fL MCH (27.0-31.0) pg MCHC (33.0-37.0) g/dL RDW (11.5-14.5) % Plt Count (130-400) K/uL MPV (7.2-11.7) fL Neut % (Auto) (50.0-75.0) % Lymph % (Auto) (20.0-40.0) % [place] % (Auto) (0.0-10.0) % Eos % (Auto) (0.0-4.0) % Baso % (Auto) (0.0-2.0) % Neut # (Auto) (1.8-7.0) K/uL Lymph # (Auto) (1.0-4.3) K/uL [place] # (Auto) (0.0-0.8) K/uL Eos # (Auto) (0.0-0.7) K/uL Baso # (Auto) (0.0-0.2) K/uL Neutrophils % (Manual) (50-75) % Band Neutrophils % (0-2) % Lymphocytes % (Manual) (20-40) % Monocytes % (Manual) (0-10) % Toxic Granulation Platelet Estimate (NORMAL) Polychromasia Hypochromasia (manual) Poikilocytosis (manual Anisocytosis (manual) Microcytosis (manual) Ovalocytes Schistocytes Puncture Site pCO2 (35-45) mm/Hg pO2 (80-100) mm/Hg HCO3 (21-28) mmol/L ABG pH (7.35-7.45) ABG Total CO2 (22-28) mmol/L ABG O2 Saturation (95-98) % ABG Base Excess (-2.0-3.0) mmol/L ABG Hemoglobin (11.7-17.4) g/dL ABG Carboxyhemoglobin (0.5-1.5) % POC ABG HHb (Measured) (0.0-5.0) % ABG Methemoglobin (0.0-3.0) % Jann Test A-a O2 Difference mm/Hg Respiratory Index Hgb O2 Saturation (95.0-98.0) % Vent Mode Mechanical Rate FiO2 % Tidal Volume PEEP Sodium (132-148) mmol/L Potassium (3.6-5.2) mmol/L Chloride (98-107) mmol/L Carbon Dioxide (22-30) mmol/L Anion Gap (10-20) BUN (7-17) mg/dL Creatinine (0.7-1.2) mg/dL Est GFR ( Amer) Est GFR (Non-Af Amer) POC Glucose (mg/dL) (65-110) mg/dL Random Glucose (65-105) mg/dL Calcium (8.6-10.4) mg/dl Phosphorus (2.5-4.5) mg/dL Magnesium (1.6-2.3) mg/dL Total Bilirubin (0.2-1.3) mg/dL AST (14-36) U/L ALT (9-52) U/L Alkaline Phosphatase (38-126) U/L Total Protein (6.3-8.3) g/dL Albumin (3.5-5.0) g/dL Globulin (2.2-3.9) gm/dL Albumin/Globulin Ratio (1.0-2.1) Rheumatoid Factor (<14) IU/mL ULTRASONIC TESTER Antibody <1.0 (<1.0) AI ULTRASONIC TESTER Antibody Interp Negative (Negative) Double Strand DNA Ab <1 IU/mL Anti-Staphylolysin O Negative (NEGATIVE) JAK2 V617F Specimen JAK2 V617F Method JAK2 % V617F Mutation % mutation JAK2 V617F Comment JAK2 V617F Review By 04/03/18 04/03/18 Range/Units 18:23 12:01 WBC (4.8-10.8) K/uL RBC (3.80-5.20) Mil/uL Hgb (11.0-16.0) g/dL Hct (34.0-47.0) % MCV (81.0-99.0) fL MCH (27.0-31.0) pg MCHC (33.0-37.0) g/dL RDW (11.5-14.5) % Plt Count (130-400) K/uL MPV (7.2-11.7) fL Neut % (Auto) (50.0-75.0) % Lymph % (Auto) (20.0-40.0) % [place] % (Auto) (0.0-10.0) % Eos % (Auto) (0.0-4.0) % Baso % (Auto) (0.0-2.0) % Neut # (Auto) (1.8-7.0) K/uL Lymph # (Auto) (1.0-4.3) K/uL [place] # (Auto) (0.0-0.8) K/uL Eos # (Auto) (0.0-0.7) K/uL Baso # (Auto) (0.0-0.2) K/uL Neutrophils % (Manual) (50-75) % Band Neutrophils % (0-2) % Lymphocytes % (Manual) (20-40) % Monocytes % (Manual) (0-10) % Toxic Granulation Platelet Estimate (NORMAL) Polychromasia Hypochromasia (manual) Poikilocytosis (manual Anisocytosis (manual) Microcytosis (manual) Ovalocytes Schistocytes Puncture Site pCO2 (35-45) mm/Hg pO2 (80-100) mm/Hg HCO3 (21-28) mmol/L ABG pH (7.35-7.45) ABG Total CO2 (22-28) mmol/L ABG O2 Saturation (95-98) % ABG Base Excess (-2.0-3.0) mmol/L ABG Hemoglobin (11.7-17.4) g/dL ABG Carboxyhemoglobin (0.5-1.5) % POC ABG HHb (Measured) (0.0-5.0) % ABG Methemoglobin (0.0-3.0) % Jann Test A-a O2 Difference mm/Hg Respiratory Index Hgb O2 Saturation (95.0-98.0) % Vent Mode Mechanical Rate FiO2 % Tidal Volume PEEP Sodium (132-148) mmol/L Potassium (3.6-5.2) mmol/L Chloride (98-107) mmol/L Carbon Dioxide (22-30) mmol/L Anion Gap (10-20) BUN (7-17) mg/dL Creatinine (0.7-1.2) mg/dL Est GFR ( Amer) Est GFR (Non-Af Amer) POC Glucose (mg/dL) (65-110) mg/dL Random Glucose (65-105) mg/dL Calcium (8.6-10.4) mg/dl Phosphorus (2.5-4.5) mg/dL Magnesium (1.6-2.3) mg/dL Total Bilirubin (0.2-1.3) mg/dL AST (14-36) U/L ALT (9-52) U/L Alkaline Phosphatase (38-126) U/L Total Protein (6.3-8.3) g/dL Albumin (3.5-5.0) g/dL Globulin (2.2-3.9) gm/dL Albumin/Globulin Ratio (1.0-2.1) Rheumatoid Factor <14 (<14) IU/mL ULTRASONIC TESTER Antibody (<1.0) AI ULTRASONIC TESTER Antibody Interp (Negative) Double Strand DNA Ab IU/mL Anti-Staphylolysin O (NEGATIVE) JAK2 V617F Specimen Peripheral blood JAK2 V617F Method See below JAK2 % V617F Mutation 0.0 % mutation JAK2 V617F Comment see note JAK2 V617F Review By see note Laboratory Results - last 24 hr 04/03/18 04/03/18 04/06/18 12:01 18:23 12:12 WBC RBC Hgb Hct MCV MCH MCHC RDW Plt Count MPV Neut % (Auto) Lymph % (Auto) [place] % (Auto) Eos % (Auto) Baso % (Auto) Neut # (Auto) Lymph # (Auto) [place] # (Auto) Eos # (Auto) Baso # (Auto) Neutrophils % (Manual) Band Neutrophils % Lymphocytes % (Manual) Monocytes % (Manual) Toxic Granulation Platelet Estimate Polychromasia Hypochromasia (manual) Poikilocytosis (manual Anisocytosis (manual) Microcytosis (manual) Ovalocytes Schistocytes Puncture Site pCO2 pO2 HCO3 ABG pH ABG Total CO2 ABG O2 Saturation ABG Base Excess ABG Hemoglobin ABG Carboxyhemoglobin POC ABG HHb (Measured) ABG Methemoglobin Jann Test A-a O2 Difference Respiratory Index Hgb O2 Saturation Vent Mode Mechanical Rate FiO2 Tidal Volume PEEP Sodium Potassium Chloride Carbon Dioxide Anion Gap BUN Creatinine Est GFR ( Amer) Est GFR (Non-Af Amer) POC Glucose (mg/dL) Random Glucose Calcium Phosphorus Magnesium Total Bilirubin AST ALT Alkaline Phosphatase Total Protein Albumin Globulin Albumin/Globulin Ratio Rheumatoid Factor <14 ULTRASONIC TESTER Antibody ULTRASONIC TESTER Antibody Interp Double Strand DNA Ab Anti-Staphylolysin O Negative JAK2 V617F Specimen Peripheral blood JAK2 V617F Method See below JAK2 % V617F Mutation 0.0 JAK2 V617F Comment see note JAK2 V617F Review By see note 04/06/18 04/06/18 04/06/18 12:12 12:12 17:49 WBC RBC Hgb Hct MCV MCH MCHC RDW Plt Count MPV Neut % (Auto) Lymph % (Auto) [place] % (Auto) Eos % (Auto) Baso % (Auto) Neut # (Auto) Lymph # (Auto) [place] # (Auto) Eos # (Auto) Baso # (Auto) Neutrophils % (Manual) Band Neutrophils % Lymphocytes % (Manual) Monocytes % (Manual) Toxic Granulation Platelet Estimate Polychromasia Hypochromasia (manual) Poikilocytosis (manual Anisocytosis (manual) Microcytosis (manual) Ovalocytes Schistocytes Puncture Site pCO2 pO2 HCO3 ABG pH ABG Total CO2 ABG O2 Saturation ABG Base Excess ABG Hemoglobin ABG Carboxyhemoglobin POC ABG HHb (Measured) ABG Methemoglobin Jann Test A-a O2 Difference Respiratory Index Hgb O2 Saturation Vent Mode Mechanical Rate FiO2 Tidal Volume PEEP Sodium Potassium Chloride Carbon Dioxide Anion Gap BUN Creatinine Est GFR ( Amer) Est GFR (Non-Af Amer) POC Glucose (mg/dL) 98 Random Glucose Calcium Phosphorus Magnesium Total Bilirubin AST ALT Alkaline Phosphatase Total Protein Albumin Globulin Albumin/Globulin Ratio Rheumatoid Factor ULTRASONIC TESTER Antibody <1.0 ULTRASONIC TESTER Antibody Interp Negative Double Strand DNA Ab <1 Anti-Staphylolysin O JAK2 V617F Specimen JAK2 V617F Method JAK2 % V617F Mutation JAK2 V617F Comment JAK2 V617F Review By 04/06/18 04/06/18 04/07/18 21:09 21:09 00:42 WBC 26.9 H RBC 2.96 L Hgb 8.2 L Hct 23.9 L MCV 80.5 L MCH 27.8 MCHC 34.5 RDW 18.6 H Plt Count 73 L D MPV 9.2 Neut % (Auto) 92.6 H Lymph % (Auto) 4.2 L [place] % (Auto) 3.2 Eos % (Auto) 0.0 Baso % (Auto) 0.0 Neut # (Auto) 24.9 H Lymph # (Auto) 1.1 [place] # (Auto) 0.9 H Eos # (Auto) 0.0 Baso # (Auto) 0.0 Neutrophils % (Manual) 90 H Band Neutrophils % 5 H Lymphocytes % (Manual) 2 L Monocytes % (Manual) 3 Toxic Granulation Platelet Estimate Slightly decreased L Polychromasia Hypochromasia (manual) Slight Poikilocytosis (manual Anisocytosis (manual) Microcytosis (manual) Slight Ovalocytes Slight Schistocytes Slight Puncture Site pCO2 pO2 HCO3 ABG pH ABG Total CO2 ABG O2 Saturation ABG Base Excess ABG Hemoglobin ABG Carboxyhemoglobin POC ABG HHb (Measured) ABG Methemoglobin Jann Test A-a O2 Difference Respiratory Index Hgb O2 Saturation Vent Mode Mechanical Rate FiO2 Tidal Volume PEEP Sodium 130 L Potassium 4.1 Chloride 94 L Carbon Dioxide 23 Anion Gap 17 BUN 56 H Creatinine 2.5 H Est GFR ( Amer) 24 Est GFR (Non-Af Amer) 20 POC Glucose (mg/dL) 107 Random Glucose 90 Calcium 7.7 L Phosphorus Magnesium Total Bilirubin 0.9 AST 26 ALT 45 Alkaline Phosphatase 115 Total Protein 4.1 L Albumin 2.0 L Globulin 2.0 L Albumin/Globulin Ratio 1.0 Rheumatoid Factor ULTRASONIC TESTER Antibody ULTRASONIC TESTER Antibody Interp Double Strand DNA Ab Anti-Staphylolysin O JAK2 V617F Specimen JAK2 V617F Method JAK2 % V617F Mutation JAK2 V617F Comment JAK2 V617F Review By 04/07/18 04/07/18 04/07/18 05:21 05:59 06:02 WBC 28.9 H RBC 2.91 L Hgb 8.1 L Hct 23.5 L MCV 81.0 MCH 27.8 MCHC 34.3 RDW 18.6 H Plt Count 77 L MPV 9.4 Neut % (Auto) 92.7 H Lymph % (Auto) 3.9 L [place] % (Auto) 3.3 Eos % (Auto) 0.0 Baso % (Auto) 0.1 Neut # (Auto) 26.8 H Lymph # (Auto) 1.1 [place] # (Auto) 0.9 H Eos # (Auto) 0.0 Baso # (Auto) 0.0 Neutrophils % (Manual) 94 H Band Neutrophils % 2 Lymphocytes % (Manual) 2 L Monocytes % (Manual) 2 Toxic Granulation Present Platelet Estimate Decreased L Polychromasia Slight Hypochromasia (manual) Slight Poikilocytosis (manual Slight Anisocytosis (manual) Moderate Microcytosis (manual) Ovalocytes Slight Schistocytes Slight Puncture Site L brach pCO2 27 L pO2 187 H HCO3 24.6 ABG pH 7.52 H ABG Total CO2 22.8 ABG O2 Saturation 98.6 H ABG Base Excess -0.4 ABG Hemoglobin 8.1 L ABG Carboxyhemoglobin 1.1 POC ABG HHb (Measured) 1.4 ABG Methemoglobin 1.3 Jann Test Na A-a O2 Difference 64.0 Respiratory Index 0.3 Hgb O2 Saturation 96.3 Vent Mode Prvc Mechanical Rate 16 FiO2 40.0 Tidal Volume 450 PEEP 5 Sodium 129 L Potassium 4.1 Chloride 92 L Carbon Dioxide 24 Anion Gap 17 BUN 55 H Creatinine 2.6 H Est GFR ( Amer) 23 Est GFR (Non-Af Amer) 19 POC Glucose (mg/dL) Random Glucose 71 Calcium 7.7 L Phosphorus 5.3 H Magnesium 2.0 Total Bilirubin 0.8 AST 29 ALT 40 Alkaline Phosphatase 125 Total Protein 4.3 L Albumin 2.0 L Globulin 2.2 Albumin/Globulin Ratio 0.9 L Rheumatoid Factor ULTRASONIC TESTER Antibody ULTRASONIC TESTER Antibody Interp Double Strand DNA Ab Anti-Staphylolysin O JAK2 V617F Specimen JAK2 V617F Method JAK2 % V617F Mutation JAK2 V617F Comment JAK2 V617F Review By 04/07/18 04/07/18 06:14 11:23 WBC RBC Hgb Hct MCV MCH MCHC RDW Plt Count MPV Neut % (Auto) Lymph % (Auto) [place] % (Auto) Eos % (Auto) Baso % (Auto) Neut # (Auto) Lymph # (Auto) [place] # (Auto) Eos # (Auto) Baso # (Auto) Neutrophils % (Manual) Band Neutrophils % Lymphocytes % (Manual) Monocytes % (Manual) Toxic Granulation Platelet Estimate Polychromasia Hypochromasia (manual) Poikilocytosis (manual Anisocytosis (manual) Microcytosis (manual) Ovalocytes Schistocytes Puncture Site pCO2 pO2 HCO3 ABG pH ABG Total CO2 ABG O2 Saturation ABG Base Excess ABG Hemoglobin ABG Carboxyhemoglobin POC ABG HHb (Measured) ABG Methemoglobin Jann Test A-a O2 Difference Respiratory Index Hgb O2 Saturation Vent Mode Mechanical Rate FiO2 Tidal Volume PEEP Sodium Potassium Chloride Carbon Dioxide Anion Gap BUN Creatinine Est GFR ( Amer) Est GFR (Non-Af Amer) POC Glucose (mg/dL) 99 105 Random Glucose Calcium Phosphorus Magnesium Total Bilirubin AST ALT Alkaline Phosphatase Total Protein Albumin Globulin Albumin/Globulin Ratio Rheumatoid Factor ULTRASONIC TESTER Antibody ULTRASONIC TESTER Antibody Interp Double Strand DNA Ab Anti-Staphylolysin O JAK2 V617F Specimen JAK2 V617F Method JAK2 % V617F Mutation JAK2 V617F Comment JAK2 V617F Review By Critical Care Progress Note - Nutrition Nutrition: Nutrition Category Date Time Status NPO Diet [DIET] Diets 04/06/18 Breakfast Active Attending/Attestation - Attestation I have personally seen and examined this patient.: Yes I have fully participated in the care of the patient.: Yes I have reviewed all pertinent clinical information: Yes Notes (Text): 04/07/18 17:07 patient seen and examined in the intensive care unit. Patient extubated after weaning trial Patient is awake and responsive Status post hemodialysis IV albumin during dialysis Continue IV antibiotics as per infectious disease Status post debridement of bilateral lower extremity necrotic skin, subcutaneous tissue, and muscle continue feeding Swallowing evaluation
[2018-04-07 09:24] LABS: BANDS 2 % (0-2); HYPOCHROMIC SLIGHT; LYMPHOCYTE 2 % (20-40); MONOCYTE 2 % (0-10); NEUTROPHIL 94 % (50-75); PLATELET ESTIMATE DECREASED (NORMAL); POLYCHROMIC SLIGHT; TOTAL CELLS COUNTED 100
[2018-04-07 09:25] LABS: OVALOCYTES SLIGHT; POIKILOCYTOSIS SLIGHT; TOXIC GRANULATION PRESENT
[2018-04-07 09:26] LABS: ANISOCYTOSIS MODERATE; SCHISTOCYTES SLIGHT
[2018-04-07] MEDS: Multiple Vitamins Oral Solution PO SCH (10:03)
[2018-04-07 11:48] LABS: RNP <1.0 AI (<1.0)
[2018-04-07] MEDS: Linezolid 600 mg in D5W 300 ml 600 MG/300 ML BAG IVPB SCH (11:56)
--- NOTE | 2018-04-07 15:14 | CP.PCM.PN ---
Subjective - Date & Time of Evaluation Date of Evaluation: 04/07/18 Time of Evaluation: 03:00 - Subjective Subjective: dictated Objective - Vital Signs/Intake and Output Vital Signs (last 24 hours): Temp Pulse Resp BP Pulse Ox 97.9 F 82 19 88/47 L 100 04/07/18 12:00 04/07/18 14:19 04/07/18 14:19 04/07/18 14:19 04/07/18 14:19 Intake and Output: 04/07/18 04/07/18 06:59 18:59 Intake Total 1140 720 Balance 1140 720 - Medications Medications: Current Medications Albumin Human (Albumin Human 25% (12.5 Gm/50 Ml)) 12.5 gm IV ONCE ONE Stop: 04/07/18 15:11 Albumin Human (Albumin Human 25% (12.5 Gm/50 Ml)) 12.5 gm IV ONCE ONE Stop: 04/07/18 15:13 Albuterol/Ipratropium (Duoneb 3 Mg/0.5 Mg (3 Ml) Ud) 3 ml INH RQ6 PRN PRN Reason: Shortness of Breath Last Admin: 04/03/18 13:37 Dose: 3 ml Ascorbic Acid (Vitamin C 500 Mg Tab) 500 mg PO BID [facility] Last Admin: 04/07/18 10:02 Dose: 500 mg Calcium Acetate (Phoslo) 1,334 mg PO TIDCC [facility] Last Admin: 04/07/18 11:58 Dose: 1,334 mg Ergocalciferol (Drisdol 50,000 Intl Units Cap) 1 cap PO Q7D [facility] Last Admin: 04/04/18 12:11 Dose: 1 cap Ferrous Gluconate (Fergon) 324 mg PO TID [facility] Last Admin: 04/07/18 13:37 Dose: 324 mg Heparin Sodium (Porcine) (Heparin) 5,000 units SC Q12 [facility] Last Admin: 04/07/18 10:02 Dose: 5,000 units Doxycycline Hyclate 100 mg/ (Sodium Chloride) 100 mls @ 100 mls/hr IVPB Q12H [facility] PRN Reason: Protocol Last Admin: 04/07/18 13:43 Dose: 100 mls/hr Dexmedetomidine HCl 200 mcg/ (Sodium Chloride) 50 mls @ 2.7 mls/hr IV TITR [facility] ; 0.2 MCG/KG/HR PRN Reason: Protocol Last Titration: 04/05/18 05:00 Dose: Infused Ampicillin 2 gm/ Sodium (Chloride) 100 mls @ 200 mls/hr IVPB Q8H [facility] PRN Reason: Protocol Last Admin: 04/07/18 11:57 Dose: 200 mls/hr Gentamicin Sulfate 80 mg/ (Sodium Chloride) 102 mls @ 100 mls/hr IVPB ONCE ONE PRN Reason: Protocol Stop: 04/07/18 17:01 Vancomycin HCl 1 gm/ Sodium (Chloride) 250 mls @ 166.7 mls/hr IVPB STAT STA PRN Reason: Protocol Stop: 04/07/18 16:40 Lorazepam (Ativan) 2 mg IVP Q6H PRN PRN Reason: Anxiety Last Admin: 04/01/18 22:46 Dose: 2 mg Multivitamins/Vitamin C (Multi-Delyn Liquid) 5 ml PO DAILY [facility] Last Admin: 04/07/18 10:03 Dose: 5 ml Pantoprazole Sodium (Protonix Inj) 40 mg IVP DAILY [facility] Last Admin: 04/07/18 10:02 Dose: 40 mg - Labs Labs: 04/07/18 05:59 04/07/18 06:02 PT 11.2 SECONDS (9.7-12.2) 04/05/18 06:15 INR 1.0 04/05/18 06:15 APTT 29 SECONDS (21-34) 04/05/18 06:15
[2018-04-07] MEDS ORDERED: Albumin Human 25% (12.5 gm/50 ml) IV ONE ×2 (15:15→15:30)
--- NOTE | 2018-04-07 15:36 | CP.PCM.PN ---
Subjective - Date & Time of Evaluation Date of Evaluation: 04/07/18 Time of Evaluation: 15:35 - Subjective Subjective: Nephrology Consultation Note: Assessment: critical Anuric Acute Kidney Injury (N17.9) ? 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 Albumin IV prn for low BP. maintain hemodyanamics stable. Patient not on ACEI/ARB due to LULA Monitor Input/Output, daily weights and renal function with basic metabolic panel pt s/p blood transfusion started phos binders, nephrovite, vit D, iron supplements urology consult for b/l hydro appreciated heme, ID eval appreciated supplement lytes as needed so far Hep B/C and HIV neg. renal sono: normal echogenicity but pt not stable to tolerate invasive procedure such as kidney biopsy. Vasculitis panel sent. Dose meds/antibiotics for reduced GFR. Avoid fleets enema/magnesium based laxatives. Avoid nephrotoxins/NSAIDs Glycemic control Further work up/management as per primary team Thanks for allowing me to participate in care of your patient. Will follow patient with you. Please call if any Qs. had d/w ICU team and family bedside Dr Jose G Clancy Office: [phone] HPI: Pt is a 52 F without known medical hx, lives [place] presented [place] as found to have unresponsiveness and here for further eval found to have severe renal failure, anemia and high WBC count renal consult for LULA eval Denies OTC/herbal meds or NSAIDs No recent iodinated contrast exposure. ROS: unable. intubated 04/01/18 extubated 04/07/18. no UOP as per nursing staff Physical Examination: General Appearance: frail, chronically debilitated and ill appearing, cachexic Vitals reviewed and noted as below Head; Atraumatic, normocephalic EYES: Pupils are equal, round and reactive to light accommodation. Eye muscles and extraocular movement intact. Sclera is anicteric. Neck; supple no lymphadenopathy, no thyromegaly or bruit Lungs: normal respiratory rate/effort. Breath sounds bilateral equal and clear anteriorly Heart: Normal rate. s1s2 normal. No rub or gallop. Extremities: 1-2+ edema. No varicose veins. has wounds in lower extremities and dressed s/p debridement Neurological: Patient is awake but lethargic Skin: Warm and dry. Normal turgor. No rash. Palpitation: Normal elasticity for age. has echymoses over lower torso Abdomen: Abdomen is soft. Bowel sounds +. There is no abdominal tenderness, no guarding/rigidity no organomegaly. globular non reducible mass in lower abdomen noted Psych: unable MSK: no joint tenderness or swelling. Digits and nails normal, no deformity : kidney or bladder not palpable. Access: permacath Labs/imaging reviewed. Past medical history, past surgical history, family history, social history, allergy reviewed and noted as below Family hx: no hx of CKD. Rest non-contributory Objective - Vital Signs/Intake and Output Vital Signs (last 24 hours): Temp Pulse Resp BP Pulse Ox 97.9 F 82 19 88/47 L 100 04/07/18 12:00 04/07/18 14:19 04/07/18 14:19 04/07/18 14:19 04/07/18 14:19 Intake and Output: 04/07/18 04/07/18 06:59 18:59 Intake Total 1140 720 Balance 1140 720 - Medications Medications: Current Medications Albuterol/Ipratropium (Duoneb 3 Mg/0.5 Mg (3 Ml) Ud) 3 ml INH RQ6 PRN PRN Reason: Shortness of Breath Last Admin: 04/03/18 13:37 Dose: 3 ml Ascorbic Acid (Vitamin C 500 Mg Tab) 500 mg PO BID [facility] Last Admin: 04/07/18 10:02 Dose: 500 mg Calcium Acetate (Phoslo) 1,334 mg PO TIDCC [facility] Last Admin: 04/07/18 11:58 Dose: 1,334 mg Ergocalciferol (Drisdol 50,000 Intl Units Cap) 1 cap PO Q7D [facility] Last Admin: 04/04/18 12:11 Dose: 1 cap Ferrous Gluconate (Fergon) 324 mg PO TID [facility] Last Admin: 04/07/18 13:37 Dose: 324 mg Heparin Sodium (Porcine) (Heparin) 5,000 units SC Q12 [facility] Last Admin: 04/07/18 10:02 Dose: 5,000 units Doxycycline Hyclate 100 mg/ (Sodium Chloride) 100 mls @ 100 mls/hr IVPB Q12H [facility] PRN Reason: Protocol Last Admin: 04/07/18 13:43 Dose: 100 mls/hr Dexmedetomidine HCl 200 mcg/ (Sodium Chloride) 50 mls @ 2.7 mls/hr IV TITR [facility] ; 0.2 MCG/KG/HR PRN Reason: Protocol Last Titration: 04/05/18 05:00 Dose: Infused Ampicillin 2 gm/ Sodium (Chloride) 100 mls @ 200 mls/hr IVPB Q8H [facility] PRN Reason: Protocol Last Admin: 04/07/18 11:57 Dose: 200 mls/hr Gentamicin Sulfate 80 mg/ (Sodium Chloride) 102 mls @ 100 mls/hr IVPB ONCE ONE PRN Reason: Protocol Stop: 04/07/18 19:01 Vancomycin/Sodium Chloride (Vancomycin 1 Gm/Ns 200 Ml) 1 gm in 200 mls @ 133.333 mls/hr IVPB STAT ONE PRN Reason: Protocol Stop: 04/07/18 17:29 Lorazepam (Ativan) 2 mg IVP Q6H PRN PRN Reason: Anxiety Last Admin: 04/01/18 22:46 Dose: 2 mg Multivitamins/Vitamin C (Multi-Delyn Liquid) 5 ml PO DAILY [facility] Last Admin: 04/07/18 10:03 Dose: 5 ml Pantoprazole Sodium (Protonix Inj) 40 mg IVP DAILY [facility] Last Admin: 04/07/18 10:02 Dose: 40 mg - Labs Labs: 04/07/18 05:59 04/07/18 06:02 PT 11.2 SECONDS (9.7-12.2) 04/05/18 06:15 INR 1.0 04/05/18 06:15 APTT 29 SECONDS (21-34) 04/05/18 06:15
[2018-04-07] MEDS ORDERED: Vancomycin 1 gm/NS 200 ml 1 GM/200 ML BAG IVPB ONE (16:00)
--- NOTE | 2018-04-07 23:45 | PN ---
DATE: 04/07/2018 SUBJECTIVE: The patient was seen today. She has been extubated, but she appeared very drowsy. Her blood pressure was low. She was supposed to get dialysis, but her hematocrit was low and the dialysis nurse is going to call Dr. Chou and Dr. Chou came in, so she was going to get albumin for low blood pressure and I decided to give one dose of vancomycin and gentamicin. She is on ampicillin. Her platelet have dropped since yesterday, it could be sepsis or it could be related to Zyvox, so I decided to taffy puller Zyvox and leave her on vancomycin for now. The patient remains hypotensive. PHYSICAL EXAMINATION: VITAL SIGNS: Her temperature however has been 97.6 this morning, pulse 88, blood pressure was 84/50, respirations were 16 to 18, and she was drowsy. NECK: Supple. LUNGS: Clear though. HEART: S1 and S2 is regular. ABDOMEN: Soft and nontender. No guarding. No rigidity present. She does have umbilical hernia, which is . EXTREMITIES: Remain with lot of discoloration, ecchymosis, and I spoke to Dr. Moore later and he told me that he only debrided the old ulceration which she had on lower extremity and he was suggesting that it will a long time before these legs would ever get normal and may need to be cared of. She is from [place], she is unstable at this time and I was thinking about hyperbaric oxygen and so on examination, extremities remain with dressings at this time. LABORATORY DATA: Were noted. Labs show white count is 28.9, hemoglobin 8.1, hematocrit 23.5, and platelet count is 77 today. Her ABG was 7.52, CO2 of 24.6, PCO2 was 27, but saturation was 187 and sodium is 129, potassium 4.1, creatinine is 2.6. BUN is 55, calcium is 7.7, phosphorus 5.3, so still has renal insufficiency. Dr. Moore had taken two cultures yesterday, both of them had coagulase negative staph. 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 She is getting albumin. 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 Festus Camarena MD
[2018-04-08] MEDS: AMPicillin 2 GM in Sodium Chloride 100 ML IVPB SCH ×3 (03:00→20:00)
--- NOTE | 2018-04-08 05:18 | CP.PCM.PN ---
Subjective - Date & Time of Evaluation Date of Evaluation: 04/07/18 Time of Evaluation: 20:00 - Subjective Subjective: Pt seen and examined, in ICU, improving, ventilator settings shows oxtygen demand went down, wbcs went down, off hemodialyiss Objective - Vital Signs/Intake and Output Vital Signs (last 24 hours): Temp Pulse Resp BP Pulse Ox 98.6 F 92 H 21 96/53 L 100 04/08/18 00:00 04/08/18 01:00 04/08/18 01:00 04/07/18 18:57 04/08/18 01:00 Intake and Output: 04/07/18 04/08/18 18:59 06:59 Intake Total 835 875 Output Total 0 0 Balance 835 875 - Medications Medications: Current Medications Albumin Human (Albumin Human 25% (12.5 Gm/50 Ml)) 25 gm IV MWF PRN PRN Reason: Other Albuterol/Ipratropium (Duoneb 3 Mg/0.5 Mg (3 Ml) Ud) 3 ml INH RQ6 PRN PRN Reason: Shortness of Breath Last Admin: 04/03/18 13:37 Dose: 3 ml Ascorbic Acid (Vitamin C 500 Mg Tab) 500 mg PO BID [facility] Last Admin: 04/07/18 17:08 Dose: 500 mg Calcium Acetate (Phoslo) 1,334 mg PO TIDCC [facility] Last Admin: 04/07/18 17:07 Dose: 1,334 mg Ergocalciferol (Drisdol 50,000 Intl Units Cap) 1 cap PO Q7D [facility] Last Admin: 04/04/18 12:11 Dose: 1 cap Ferrous Gluconate (Fergon) 324 mg PO TID [facility] Last Admin: 04/07/18 17:05 Dose: 324 mg Heparin Sodium (Porcine) (Heparin) 5,000 units SC Q12 [facility] Last Admin: 04/07/18 21:51 Dose: 5,000 units Doxycycline Hyclate 100 mg/ (Sodium Chloride) 100 mls @ 100 mls/hr IVPB Q12H [facility] PRN Reason: Protocol Last Admin: 04/08/18 01:00 Dose: 100 mls/hr Ampicillin 2 gm/ Sodium (Chloride) 100 mls @ 200 mls/hr IVPB Q8H [facility] PRN Reason: Protocol Last Admin: 04/08/18 03:00 Dose: 200 mls/hr Meropenem 500 mg/ Sodium (Chloride) 100 mls @ 100 mls/hr IVPB Q12H [facility] PRN Reason: Protocol Stop: 04/14/18 23:31 Last Admin: 04/08/18 00:00 Dose: 100 mls/hr Lorazepam (Ativan) 2 mg IVP Q6H PRN PRN Reason: Anxiety Last Admin: 04/01/18 22:46 Dose: 2 mg Multivitamins/Vitamin C (Multi-Delyn Liquid) 5 ml PO DAILY [facility] Last Admin: 04/07/18 10:03 Dose: 5 ml Pantoprazole Sodium (Protonix Inj) 40 mg IVP DAILY [facility] Last Admin: 04/07/18 10:02 Dose: 40 mg - Labs Labs: 04/07/18 05:59 04/07/18 06:02 PT 11.2 SECONDS (9.7-12.2) 04/05/18 06:15 INR 1.0 04/05/18 06:15 APTT 29 SECONDS (21-34) 04/05/18 06:15 - Constitutional Appears: No Acute Distress, Chronically Ill - Head Exam Head Exam: ATRAUMATIC, NORMAL INSPECTION, NORMOCEPHALIC - Eye Exam Eye Exam: EOMI, Normal appearance, PERRL Pupil Exam: NORMAL ACCOMODATION, PERRL - Respiratory Exam Respiratory Exam: Clear to Ausculation Bilateral, NORMAL BREATHING PATTERN - Cardiovascular Exam Cardiovascular Exam: REGULAR RHYTHM, +S1, +S2. absent: Murmur - GI/Abdominal Exam GI & Abdominal Exam: Soft, Normal Bowel Sounds. absent: Tenderness Assessment and Plan (1) Coagulopathy Status: Acute (2) Altered mental status Status: Acute (3) Myoglobinuria Status: Acute (4) Renal failure Status: Acute (5) Listeria septicemia Status: Acute (6) Acute tubular necrosis Status: Acute (7) Acute respiratory failure Status: Acute
--- NOTE | 2018-04-08 05:56 | CP.PCM.PN ---
Subjective - Date & Time of Evaluation Date of Evaluation: 04/08/18 Time of Evaluation: 20:00 - Subjective Subjective: Pt seen and examined at bedside, is feeling better, improving Objective - Vital Signs/Intake and Output Vital Signs (last 24 hours): Temp Pulse Resp BP Pulse Ox 98.6 F 89 20 96/53 L 100 04/08/18 00:00 04/08/18 05:00 04/08/18 05:00 04/08/18 04:49 04/08/18 05:00 Intake and Output: 04/07/18 04/08/18 18:59 06:59 Intake Total 835 875 Output Total 0 0 Balance 835 875 - Medications Medications: Current Medications Albumin Human (Albumin Human 25% (12.5 Gm/50 Ml)) 25 gm IV MWF PRN PRN Reason: Other Albuterol/Ipratropium (Duoneb 3 Mg/0.5 Mg (3 Ml) Ud) 3 ml INH RQ6 PRN PRN Reason: Shortness of Breath Last Admin: 04/03/18 13:37 Dose: 3 ml Ascorbic Acid (Vitamin C 500 Mg Tab) 500 mg PO BID [facility] Last Admin: 04/07/18 17:08 Dose: 500 mg Calcium Acetate (Phoslo) 1,334 mg PO TIDCC [facility] Last Admin: 04/07/18 17:07 Dose: 1,334 mg Ergocalciferol (Drisdol 50,000 Intl Units Cap) 1 cap PO Q7D [facility] Last Admin: 04/04/18 12:11 Dose: 1 cap Ferrous Gluconate (Fergon) 324 mg PO TID [facility] Last Admin: 04/07/18 17:05 Dose: 324 mg Heparin Sodium (Porcine) (Heparin) 5,000 units SC Q12 [facility] Last Admin: 04/07/18 21:51 Dose: 5,000 units Doxycycline Hyclate 100 mg/ (Sodium Chloride) 100 mls @ 100 mls/hr IVPB Q12H [facility] PRN Reason: Protocol Last Admin: 04/08/18 01:00 Dose: 100 mls/hr Ampicillin 2 gm/ Sodium (Chloride) 100 mls @ 200 mls/hr IVPB Q8H [facility] PRN Reason: Protocol Last Admin: 04/08/18 03:00 Dose: 200 mls/hr Meropenem 500 mg/ Sodium (Chloride) 100 mls @ 100 mls/hr IVPB Q12H [facility] PRN Reason: Protocol Stop: 04/14/18 23:31 Last Admin: 04/08/18 00:00 Dose: 100 mls/hr Lorazepam (Ativan) 2 mg IVP Q6H PRN PRN Reason: Anxiety Last Admin: 04/01/18 22:46 Dose: 2 mg Multivitamins/Vitamin C (Multi-Delyn Liquid) 5 ml PO DAILY [facility] Last Admin: 04/07/18 10:03 Dose: 5 ml Pantoprazole Sodium (Protonix Inj) 40 mg IVP DAILY [facility] Last Admin: 04/07/18 10:02 Dose: 40 mg - Labs Labs: 04/07/18 05:59 04/07/18 06:02 PT 11.2 SECONDS (9.7-12.2) 04/05/18 06:15 INR 1.0 04/05/18 06:15 APTT 29 SECONDS (21-34) 04/05/18 06:15 Assessment and Plan (1) Coagulopathy Status: Acute (2) Altered mental status Status: Acute (3) Myoglobinuria Status: Acute (4) Renal failure Status: Acute (5) Listeria septicemia Status: Acute (6) Acute tubular necrosis Status: Acute (7) Acute respiratory failure Status: Acute
[2018-04-08 07:16] LABS: BASO % 0.1 % (0.0-2.0); EOS % 0.1 % (0.0-4.0); HEMOGLOBIN 7.7 g/dL (11.0-16.0); LYMPH # 0.8 K/uL (1.0-4.3); LYMPH % 3.1 % (20.0-40.0); MEAN CELL VOLUME 82.9 fL (81.0-99.0); MEAN CORPUSCULAR HGB CONC 33.8 g/dL (33.0-37.0); MONO # 0.9 K/uL (0.0-0.8); MONO % 3.4 % (0.0-10.0); NEUT # 24.5 K/uL (1.8-7.0); NEUT % 93.3 % (50.0-75.0); PLATELET COUNT 87 K/uL (130-400); RBC 2.75 Mil/uL (3.80-5.20); RED CELL DISTRIBUTION WIDTH 18.3 % (11.5-14.5); WHITE BLOOD COUNT 26.3 K/uL (4.8-10.8)
[2018-04-08 07:32] LABS: ALBUMIN 2.1 g/dL (3.5-5.0); CALCIUM 7.7 mg/dl (8.6-10.4)
--- NOTE | 2018-04-08 07:34 | CP.PCM.PN ---
Subjective - Date & Time of Evaluation Date of Evaluation: 04/08/18 Time of Evaluation: 06:50 - Subjective Subjective: Surgery- Dr. Moore Patient seen and examined at bedside this AM. Intubated, on PRVC. bilateral LE dressing C/D/i. Responds appropriately simple commands. Objective - Vital Signs/Intake and Output Vital Signs (last 24 hours): Temp Pulse Resp BP Pulse Ox 97.5 F L 81 17 92/58 L 100 04/08/18 04:00 04/08/18 06:25 04/08/18 06:25 04/08/18 06:25 04/08/18 06:25 Intake and Output: 04/08/18 04/08/18 06:59 18:59 Intake Total 975 Output Total 1 Balance 974 - Medications Medications: Current Medications Albumin Human (Albumin Human 25% (12.5 Gm/50 Ml)) 25 gm IV MWF PRN PRN Reason: Other Albuterol/Ipratropium (Duoneb 3 Mg/0.5 Mg (3 Ml) Ud) 3 ml INH RQ6 PRN PRN Reason: Shortness of Breath Last Admin: 04/03/18 13:37 Dose: 3 ml Ascorbic Acid (Vitamin C 500 Mg Tab) 500 mg PO BID [facility] Last Admin: 04/07/18 17:08 Dose: 500 mg Calcium Acetate (Phoslo) 1,334 mg PO TIDCC [facility] Last Admin: 04/07/18 17:07 Dose: 1,334 mg Ergocalciferol (Drisdol 50,000 Intl Units Cap) 1 cap PO Q7D [facility] Last Admin: 04/04/18 12:11 Dose: 1 cap Ferrous Gluconate (Fergon) 324 mg PO TID [facility] Last Admin: 04/07/18 17:05 Dose: 324 mg Heparin Sodium (Porcine) (Heparin) 5,000 units SC Q12 [facility] Last Admin: 04/07/18 21:51 Dose: 5,000 units Doxycycline Hyclate 100 mg/ (Sodium Chloride) 100 mls @ 100 mls/hr IVPB Q12H [facility] PRN Reason: Protocol Last Admin: 04/08/18 01:00 Dose: 100 mls/hr Ampicillin 2 gm/ Sodium (Chloride) 100 mls @ 200 mls/hr IVPB Q8H [facility] PRN Reason: Protocol Last Admin: 04/08/18 03:00 Dose: 200 mls/hr Meropenem 500 mg/ Sodium (Chloride) 100 mls @ 100 mls/hr IVPB Q12H [facility] PRN Reason: Protocol Stop: 04/14/18 23:31 Last Admin: 04/08/18 00:00 Dose: 100 mls/hr Lorazepam (Ativan) 2 mg IVP Q6H PRN PRN Reason: Anxiety Last Admin: 04/01/18 22:46 Dose: 2 mg Multivitamins/Vitamin C (Multi-Delyn Liquid) 5 ml PO DAILY [facility] Last Admin: 04/07/18 10:03 Dose: 5 ml Pantoprazole Sodium (Protonix Inj) 40 mg IVP DAILY [facility] Last Admin: 04/07/18 10:02 Dose: 40 mg Silver Sulfadiazine (Silvadene 1% 20 Gm) 0 ea TOP DAILY [facility] - Labs Labs: 04/08/18 07:04 04/07/18 06:02 PT 11.2 SECONDS (9.7-12.2) 04/05/18 06:15 INR 1.0 04/05/18 06:15 APTT 29 SECONDS (21-34) 04/05/18 06:15 - Constitutional Appears: No Acute Distress, Chronically Ill - Head Exam Head Exam: ATRAUMATIC - Eye Exam Eye Exam: EOMI - Respiratory Exam Respiratory Exam: absent: Accessory Muscle Use, Respiratory Distress Additional comments: intubated on PRVC - Cardiovascular Exam Cardiovascular Exam: Tachycardia, +S1, +S2. absent: Bradycardia Additional comments: low 100 on the monitor during exam - GI/Abdominal Exam GI & Abdominal Exam: Soft, Hernia (ventral). absent: Guarding, Rigid, Tenderness - Extremities Exam Additional comments: bilateral LE dressign C/D/I with some strikethrough - Neurological Exam Neurological Exam: Alert, Awake - Skin Skin Exam: Intact, Warm Assessment and Plan - Assessment and Plan (Free Text) Assessment: 52F s/p bilateral LE debridement of nectrotic skin, soft tissue, and muscle POD #2 Plan: - will change dressing at bedside today - silvadene and dry dressing ontop - once pulm stable and extubated cleared from surgical standpoint to transfer to burn unit - d/[facility]
[2018-04-08 08:43] LABS: ANISOCYTOSIS SLIGHT; BANDS 1 % (0-2); LYMPHOCYTE 2 % (20-40); MONOCYTE 5 % (0-10); NEUTROPHIL 92 % (50-75); PLATELET ESTIMATE DECREASED (NORMAL); TOTAL CELLS COUNTED 100
[2018-04-08 08:44] LABS: HYPOCHROMIC SLIGHT; POLYCHROMIC SLIGHT
[2018-04-08] MEDS ORDERED: Potassium Chloride 20 mEq/15 ml LIQ UD PO ONE (10:45)
--- NOTE | 2018-04-08 10:46 | CP.PCM.PN ---
Subjective - Date & Time of Evaluation Date of Evaluation: 04/08/18 Time of Evaluation: 10:38 - Subjective Subjective: Patient seen and examined at bedside. (+)loose stool, no fevers overnight, tolerating NG tube feeds Objective - Vital Signs/Intake and Output Vital Signs (last 24 hours): Temp Pulse Resp BP Pulse Ox 97.5 F L 81 17 92/58 L 100 04/08/18 04:00 04/08/18 06:25 04/08/18 06:25 04/08/18 06:25 04/08/18 06:25 Intake and Output: 04/08/18 04/08/18 06:59 18:59 Intake Total 975 Output Total 1 Balance 974 - Medications Medications: Current Medications Albumin Human (Albumin Human 25% (12.5 Gm/50 Ml)) 25 gm IV MWF PRN PRN Reason: Other Albuterol/Ipratropium (Duoneb 3 Mg/0.5 Mg (3 Ml) Ud) 3 ml INH RQ6 PRN PRN Reason: Shortness of Breath Last Admin: 04/03/18 13:37 Dose: 3 ml Ascorbic Acid (Vitamin C 500 Mg Tab) 500 mg PO BID [facility] Last Admin: 04/07/18 17:08 Dose: 500 mg Calcium Acetate (Phoslo) 1,334 mg PO TIDCC [facility] Last Admin: 04/07/18 17:07 Dose: 1,334 mg Ergocalciferol (Drisdol 50,000 Intl Units Cap) 1 cap PO Q7D [facility] Last Admin: 04/04/18 12:11 Dose: 1 cap Ferrous Gluconate (Fergon) 324 mg PO TID [facility] Last Admin: 04/07/18 17:05 Dose: 324 mg Heparin Sodium (Porcine) (Heparin) 5,000 units SC Q12 [facility] Last Admin: 04/07/18 21:51 Dose: 5,000 units Doxycycline Hyclate 100 mg/ (Sodium Chloride) 100 mls @ 100 mls/hr IVPB Q12H [facility] PRN Reason: Protocol Last Admin: 04/08/18 01:00 Dose: 100 mls/hr Ampicillin 2 gm/ Sodium (Chloride) 100 mls @ 200 mls/hr IVPB Q8H [facility] PRN Reason: Protocol Last Admin: 04/08/18 03:00 Dose: 200 mls/hr Meropenem 500 mg/ Sodium (Chloride) 100 mls @ 100 mls/hr IVPB Q12H [facility] PRN Reason: Protocol Stop: 04/14/18 23:31 Last Admin: 04/08/18 00:00 Dose: 100 mls/hr Multivitamins/Vitamin C (Multi-Delyn Liquid) 5 ml PO DAILY [facility] Last Admin: 04/07/18 10:03 Dose: 5 ml Pantoprazole Sodium (Protonix Inj) 40 mg IVP DAILY [facility] Last Admin: 04/07/18 10:02 Dose: 40 mg Potassium Chloride (Potassium Chloride Oral Soln) 40 meq PO ONCE ONE Stop: 04/08/18 10:46 Silver Sulfadiazine (Silvadene 1%) 0 ea TOP DAILY [facility] - Labs Labs: 04/08/18 07:04 04/08/18 07:01 PT 11.2 SECONDS (9.7-12.2) 04/05/18 06:15 INR 1.0 04/05/18 06:15 APTT 29 SECONDS (21-34) 04/05/18 06:15 - Constitutional Appears: Non-toxic - Head Exam Head Exam: ATRAUMATIC, NORMAL INSPECTION - Eye Exam Eye Exam: EOMI Pupil Exam: PERRL - Neck Exam Neck Exam: Normal Inspection - Respiratory Exam Respiratory Exam: NORMAL BREATHING PATTERN - Cardiovascular Exam Cardiovascular Exam: REGULAR RHYTHM, +S1, +S2 Assessment and Plan - Assessment and Plan (Free Text) Assessment: -extubated: -obtain speech and swallow and PT/OT -Wound care -diarrhea: check C. diff -Severe sepsis: blood culture grew listeria, continue abx as per ID, de- escalate abx -LULA: continue HD as per renal, keep bicarb >18 -Anemia:s/p multiple blood transfusion, will transfuse 1 units today -Anion gap metabolic acidosis: 2nd renal failure, monitor to keep HCO3 >18 -GI: contineu NG tube feeds and swithc to oral when speech and swallow obtained -DVT ppx: heparin SQ q12 -PUD ppx protonix -will d/w family regarding possible transfer to burn unit given the large percent of total skin involved. -continue MVI and vitamin C.
[2018-04-08] MEDS: Multiple Vitamins Oral Solution PO SCH (10:55)
[2018-04-08] MEDS: Meropenem 500 MG in Sodium Chloride 0.9% 100 ML IVPB SCH ×2 (10:56)
[2018-04-08] MEDS: Silver Sulfadiazine 1% Cream (400 gm) TOP SCH (11:13)
--- NOTE | 2018-04-08 12:55 | PN ---
DATE: 04/08/2018 LOCATION: ICU 6 SUBJECTIVE: This is a 52-year-old female seen and examined early in rounds with the staff on the floor, case discussed with Dr. Razo early this morning. The patient appears to be awake, with NG-tube feeding in process. No reported active bleeding and no reported diarrhea. The entire chart is reviewed including but not limited to the most recent lab and radiology study results, current and the previous medication list, current and the previous medical events. Today's lab showed leukocytosis of 26.3, drop of hemoglobin 7.7, with hematocrit 22.8, with thrombocytopenia of 87, potassium 3.4, BUN 43, creatinine 1.7, calcium 7.7, phosphorous 4.7, albumin 2.1. Cancer marker reports still pending. PHYSICAL EXAMINATION: GENERAL: A 52-year-old female. VITAL SIGNS: Afebrile, with pulse of 84, respiratory rate of 20 to 22, blood pressure of 96/64. HEENT: Showed pale, dry, oral mucous membranes. Nonicteric sclerae. LUNGS: Few scattered crepitation. Decreased air entry at bases. HEART: Positive S1 and S2. ABDOMEN: Soft, with slight generalized tenderness. No mass or organomegaly. No rebound tenderness or guarding. EXTREMITIES: With bilateral lower extremities clean dressing with ecchymotic changes bilaterally. IMPRESSION: 1. Anemia, most likely secondary to chronic disease. 2. Reported change of bowel movement habit recently. 3. Change of mental status as reported. 4. Electrolyte imbalance. 5. Renal failure, on hemodialysis. 6. Listeria septicemia, on treatment. 7. Recent history of acute respiratory failure, treated. SUGGESTIONS: 1. Agree with your plan. 2. Follow up cancer markers. 3. Sectional abdominal and pelvic CAT scan. 4. Further recommendations to follow. Salinas Miles MD
--- NOTE | 2018-04-08 14:50 | CP.PCM.PN ---
Subjective - Date & Time of Evaluation Date of Evaluation: 04/08/18 Time of Evaluation: 13:30 - Subjective Subjective: Nephrology Consultation Note: Assessment: critical Anuric Acute Kidney Injury (N17.9) ? etiology with 5 gram proteinuria and 2 gram albuminuria b/l hydroureteronephrosis Hyperkalemia, HAGMA, acute respi failure, hyponatremia Fall with rhabdomyolysis, severe anemia with leukocytsosis with Sepsis (Listeria ) Hyperphosphatemia (E83.39), hypocalcemia, hyperuricemia, Vit D def, anemia, sec hyperparathyroidism leg wounds Plan tolerated HD yesterday, lytes are acceptable today volume status is acceptable today monitor h and h f/u heme continue phos binders, nephrovite, vit D, iron supplements f/u heme, ID eval appreciated supplement lytes as needed wounds on legs are not clear - consider rheum eval? so far serologic work up including hepatitis, anca, hiv, cash. Dose meds/antibiotics for reduced GFR. Avoid fleets enema/magnesium based laxatives. Avoid nephrotoxins/NSAIDs Glycemic control Further work up/management as per primary team S: Seen and examined no complaints Physical Examination: General Appearance: frail, chronically debilitated and ill appearing, cachexic Vitals reviewed and noted as below Head; Atraumatic, normocephalic EYES: Pupils are equal, Sclera is anicteric. Neck; supple no lymphadenopathy, no thyromegaly or bruit Lungs: normal respiratory rate/effort. Breath sounds bilateral equal and clear anteriorly Heart: Normal rate. s1s2 normal. No rub or gallop. Extremities: 1+ edema. No varicose veins. has wounds in lower extremities and dressed s/p debridement Neurological: Patient is awake but lethargic Skin: ecchymoses lower abdomen and dressings on b/l LE Abdomen: Abdomen is soft. Bowel sounds +. There is no abdominal tenderness, no guarding/rigidity no organomegaly. Psych: unable MSK: no joint tenderness or swelling. Digits and nails normal, no deformity : kidney or bladder not palpable. Access: permacath Labs/imaging reviewed. Past medical history, past surgical history, family history, social history, allergy reviewed and noted as below Family hx: no hx of CKD. Rest non-contributory Objective - Vital Signs/Intake and Output Vital Signs (last 24 hours): Temp Pulse Resp BP Pulse Ox 97.5 F L 81 17 92/58 L 100 04/08/18 04:00 04/08/18 06:25 04/08/18 06:25 04/08/18 06:25 04/08/18 06:25 Intake and Output: 04/08/18 04/08/18 06:59 18:59 Intake Total 975 Output Total 1 Balance 974 - Medications Medications: Current Medications Albumin Human (Albumin Human 25% (12.5 Gm/50 Ml)) 25 gm IV MWF PRN PRN Reason: Other Albuterol/Ipratropium (Duoneb 3 Mg/0.5 Mg (3 Ml) Ud) 3 ml INH RQ6 PRN PRN Reason: Shortness of Breath Last Admin: 04/03/18 13:37 Dose: 3 ml Ascorbic Acid (Vitamin C 500 Mg Tab) 500 mg PO BID [facility] Last Admin: 04/08/18 11:13 Dose: 500 mg Calcium Acetate (Phoslo) 1,334 mg PO TIDCC [facility] Last Admin: 04/08/18 14:24 Dose: 1,334 mg Ergocalciferol (Drisdol 50,000 Intl Units Cap) 1 cap PO Q7D [facility] Last Admin: 04/04/18 12:11 Dose: 1 cap Ferrous Gluconate (Fergon) 324 mg PO TID [facility] Last Admin: 04/08/18 14:24 Dose: 324 mg Heparin Sodium (Porcine) (Heparin) 5,000 units SC Q12 [facility] Last Admin: 04/08/18 10:54 Dose: 5,000 units Doxycycline Hyclate 100 mg/ (Sodium Chloride) 100 mls @ 100 mls/hr IVPB Q12H [facility] PRN Reason: Protocol Last Admin: 04/08/18 12:37 Dose: 100 mls/hr Ampicillin 2 gm/ Sodium (Chloride) 100 mls @ 200 mls/hr IVPB Q8H [facility] PRN Reason: Protocol Last Admin: 04/08/18 11:02 Dose: 200 mls/hr Meropenem 500 mg/ Sodium (Chloride) 100 mls @ 100 mls/hr IVPB Q12H [facility] PRN Reason: Protocol Stop: 04/14/18 23:31 Last Admin: 04/08/18 10:56 Dose: 100 mls/hr Multivitamins/Vitamin C (Multi-Delyn Liquid) 5 ml PO DAILY [facility] Last Admin: 04/08/18 10:55 Dose: 5 ml Pantoprazole Sodium (Protonix Inj) 40 mg IVP DAILY [facility] Last Admin: 04/08/18 10:55 Dose: 40 mg Silver Sulfadiazine (Silvadene 1%) 0 ea TOP DAILY [facility] Last Admin: 04/08/18 11:13 Dose: 1 applic - Labs Labs: 04/08/18 07:04 04/08/18 07:01 PT 11.2 SECONDS (9.7-12.2) 04/05/18 06:15 INR 1.0 04/05/18 06:15 APTT 29 SECONDS (21-34) 04/05/18 06:15
--- NOTE | 2018-04-08 17:15 | CP.PCM.PN ---
Subjective - Date & Time of Evaluation Date of Evaluation: 04/08/18 Time of Evaluation: 02:40 - Subjective Subjective: dictated Objective - Vital Signs/Intake and Output Vital Signs (last 24 hours): Temp Pulse Resp BP Pulse Ox 97.5 F L 81 17 92/58 L 100 04/08/18 04:00 04/08/18 06:25 04/08/18 06:25 04/08/18 06:25 04/08/18 06:25 Intake and Output: 04/08/18 04/08/18 06:59 18:59 Intake Total 975 Output Total 1 Balance 974 - Medications Medications: Current Medications Albumin Human (Albumin Human 25% (12.5 Gm/50 Ml)) 25 gm IV MWF PRN PRN Reason: Other Albuterol/Ipratropium (Duoneb 3 Mg/0.5 Mg (3 Ml) Ud) 3 ml INH RQ6 PRN PRN Reason: Shortness of Breath Last Admin: 04/03/18 13:37 Dose: 3 ml Ascorbic Acid (Vitamin C 500 Mg Tab) 500 mg PO BID [facility] Last Admin: 04/08/18 11:13 Dose: 500 mg Calcium Acetate (Phoslo) 1,334 mg PO TIDCC [facility] Last Admin: 04/08/18 14:24 Dose: 1,334 mg Ergocalciferol (Drisdol 50,000 Intl Units Cap) 1 cap PO Q7D [facility] Last Admin: 04/04/18 12:11 Dose: 1 cap Ferrous Gluconate (Fergon) 324 mg PO TID [facility] Last Admin: 04/08/18 14:24 Dose: 324 mg Heparin Sodium (Porcine) (Heparin) 5,000 units SC Q12 [facility] Last Admin: 04/08/18 10:54 Dose: 5,000 units Doxycycline Hyclate 100 mg/ (Sodium Chloride) 100 mls @ 100 mls/hr IVPB Q12H [facility] PRN Reason: Protocol Last Admin: 04/08/18 12:37 Dose: 100 mls/hr Ampicillin 2 gm/ Sodium (Chloride) 100 mls @ 200 mls/hr IVPB Q8H [facility] PRN Reason: Protocol Last Admin: 04/08/18 11:02 Dose: 200 mls/hr Meropenem 500 mg/ Sodium (Chloride) 100 mls @ 100 mls/hr IVPB Q12H [facility] PRN Reason: Protocol Stop: 04/14/18 23:31 Last Admin: 04/08/18 10:56 Dose: 100 mls/hr Multivitamins/Vitamin C (Multi-Delyn Liquid) 5 ml PO DAILY [facility] Last Admin: 04/08/18 10:55 Dose: 5 ml Pantoprazole Sodium (Protonix Inj) 40 mg IVP DAILY [facility] Last Admin: 04/08/18 10:55 Dose: 40 mg Silver Sulfadiazine (Silvadene 1%) 0 ea TOP DAILY [facility] Last Admin: 04/08/18 11:13 Dose: 1 applic - Labs Labs: 04/08/18 07:04 04/08/18 07:01 PT 11.2 SECONDS (9.7-12.2) 04/05/18 06:15 INR 1.0 04/05/18 06:15 APTT 29 SECONDS (21-34) 04/05/18 06:15
--- NOTE | 2018-04-08 21:47 | CP.PCM.PN ---
Subjective - Date & Time of Evaluation Date of Evaluation: 04/08/18 Time of Evaluation: 18:00 - Subjective Subjective: Vented, awake Objective - Vital Signs/Intake and Output Vital Signs (last 24 hours): Temp Pulse Resp BP Pulse Ox 97.2 F L 99 H 21 102/63 100 04/08/18 16:00 04/08/18 19:02 04/08/18 19:02 04/08/18 19:02 04/08/18 19:02 Intake and Output: 04/08/18 04/09/18 18:59 06:59 Intake Total 950 25 Balance 950 25 - Medications Medications: Current Medications Albumin Human (Albumin Human 25% (12.5 Gm/50 Ml)) 25 gm IV MWF PRN PRN Reason: Other Albuterol/Ipratropium (Duoneb 3 Mg/0.5 Mg (3 Ml) Ud) 3 ml INH RQ6 PRN PRN Reason: Shortness of Breath Last Admin: 04/03/18 13:37 Dose: 3 ml Ascorbic Acid (Vitamin C 500 Mg Tab) 500 mg PO BID [facility] Last Admin: 04/08/18 18:18 Dose: 500 mg Calcium Acetate (Phoslo) 1,334 mg PO TIDCC [facility] Last Admin: 04/08/18 18:18 Dose: 1,334 mg Ergocalciferol (Drisdol 50,000 Intl Units Cap) 1 cap PO Q7D [facility] Last Admin: 04/04/18 12:11 Dose: 1 cap Ferrous Gluconate (Fergon) 324 mg PO TID [facility] Last Admin: 04/08/18 18:18 Dose: 324 mg Heparin Sodium (Porcine) (Heparin) 5,000 units SC Q12 [facility] Last Admin: 04/08/18 21:34 Dose: 5,000 units Doxycycline Hyclate 100 mg/ (Sodium Chloride) 100 mls @ 100 mls/hr IVPB Q12H [facility] PRN Reason: Protocol Last Admin: 04/08/18 12:37 Dose: 100 mls/hr Ampicillin 2 gm/ Sodium (Chloride) 100 mls @ 200 mls/hr IVPB Q8H [facility] PRN Reason: Protocol Last Admin: 04/08/18 20:00 Dose: 200 mls/hr Meropenem 500 mg/ Sodium (Chloride) 100 mls @ 100 mls/hr IVPB Q12H [facility] PRN Reason: Protocol Stop: 04/14/18 23:31 Last Admin: 04/08/18 10:56 Dose: 100 mls/hr Multivitamins/Vitamin C (Multi-Delyn Liquid) 5 ml PO DAILY [facility] Last Admin: 04/08/18 10:55 Dose: 5 ml Pantoprazole Sodium (Protonix Inj) 40 mg IVP DAILY [facility] Last Admin: 04/08/18 10:55 Dose: 40 mg Silver Sulfadiazine (Silvadene 1%) 0 ea TOP DAILY [facility] Last Admin: 04/08/18 11:13 Dose: 1 applic - Labs Labs: 04/08/18 07:04 04/08/18 07:01 PT 11.2 SECONDS (9.7-12.2) 04/05/18 06:15 INR 1.0 04/05/18 06:15 APTT 29 SECONDS (21-34) 04/05/18 06:15 - Head Exam Head Exam: ATRAUMATIC - Eye Exam Eye Exam: Normal appearance - ENT Exam ENT Exam: Mucous Membranes Dry - Respiratory Exam Respiratory Exam: NORMAL BREATHING PATTERN - Cardiovascular Exam Cardiovascular Exam: +S1, +S2 - GI/Abdominal Exam GI & Abdominal Exam: Normal Bowel Sounds Assessment and Plan (1) Leukocytosis Assessment & Plan: improving on antibiotics negative evaluation for myeloproliferative disorder likely secondary to infection; improving with antibiotics and wound debridement Status: Acute (2) Anemia Assessment & Plan: chronic disease and renal disease transfusion suppport PRN EPO per renal Status: Acute (3) Thrombocytopenia Assessment & Plan: ?sepsis related heparin Ab negative; not HIT okay to use heparin Status: Acute (4) Coagulopathy Assessment & Plan: nutritional Status: Acute
--- NOTE | 2018-04-08 22:34 | PN ---
DATE: 04/08/2018 SUBJECTIVE: The patient was seen today. She is off the ventilator, but she has lost her voice, she is not able to speak. She was also having diarrhea. The nurse said they had sent for C. diff and she was not complaining of any pain and her legs remain unchanged. There is blistering and ecchymosis and discoloration which is chronic and now she is having diarrhea. PHYSICAL EXAMINATION: VITAL SIGNS: T-max is 97.5, pulse 90, blood pressure 96/53, respirations are 20. GENERAL: She looks cachectic and emaciated, now that I can see her better off the ventilator. She denied eating any cheese and denies any watery sports. HEENT: Head is atraumatic and normocephalic. NECK: Supple. LUNGS: Clear. HEART: S1, S2 is regular. ABDOMEN: Soft, nontender. There is a periumbilical hernia. EXTREMITIES: Remain , she does have dressing in the lower area where she had necrotic ulceration and was debrided, but that was probably chronic ulcerations. LABORATORY DATA: Renal is following her. White count is 26.3, hemoglobin 7.7, hematocrit 22.8, platelet count is 87 today. I had added meropenem as meropenem seems to work against Listeria also and she was hypotensive yesterday, we had given vancomycin and gentamicin one dose. Sodium is 133, potassium 3.4, chlorides are 97, CO2 is 25 and creatinine is 1.7, random level is 18.5 today of vancomycin. C. diff is negative, I am not sure if she is taking any oral medications but once she does maybe we will give her Bacid. I have also put her on doxycycline as there was some suspicion for Vibrio vulnificus, which has not been proven and the wound culture showed coagulase-negative staph and now from the left leg it is showing Staph aureus. We will wait for the sensitivities as she does have renal issues and we do want to give that much vancomycin, but this once came out to be heavy growth of Staph aureus, so we will wait for the sensitivities and we will get a vancomycin random level tomorrow to see if we need to redose vancomycin tomorrow. Her MAYI was negative. ASSESSMENT AND PLAN: She is status post respiratory failure, renal failure, has these ecchymotic lesions on her lower extremity it could be staphylococcus before was Staphylococcus epidermidis, but I was told that the gram stain was negative and the Staphylococcus epidermidis only grew from the broth so it was not significant, but at this time the third culture is showing Staphylococcus aureus, so we will follow that sensitivities and we will continue present treatment. She did have Listeria septicemia and just came from a cruise. Festus Camarena MD
[2018-04-09] MEDS: AMPicillin 2 GM in Sodium Chloride 100 ML IVPB SCH ×3 (03:00→20:00)
[2018-04-09] MEDS ORDERED: Albumin Human 25% (12.5 gm/50 ml) IV PRN (06:00)
[2018-04-09 06:48] LABS: BASO % 0.1 % (0.0-2.0); EOS # 0.1 K/uL (0.0-0.7); EOS % 0.6 % (0.0-4.0); HEMOGLOBIN 8.7 g/dL (11.0-16.0); LYMPH # 1.1 K/uL (1.0-4.3); LYMPH % 4.1 % (20.0-40.0); MEAN CELL VOLUME 82.6 fL (81.0-99.0); MEAN CORPUSCULAR HEMOGLOBIN 27.7 pg (27.0-31.0); MEAN CORPUSCULAR HGB CONC 33.6 g/dL (33.0-37.0); MEAN PLATELET VOLUME 9.8 fL (7.2-11.7); MONO # 1.3 K/uL (0.0-0.8); MONO % 4.9 % (0.0-10.0); NEUT # 23.1 K/uL (1.8-7.0); NEUT % 90.3 % (50.0-75.0); PLATELET COUNT 108 K/uL (130-400); RBC 3.14 Mil/uL (3.80-5.20); RED CELL DISTRIBUTION WIDTH 17.6 % (11.5-14.5); WHITE BLOOD COUNT 25.5 K/uL (4.8-10.8)
[2018-04-09 07:05] LABS: ALB/GLOB RATIO 0.8 (1.0-2.1); ALBUMIN 2.1 g/dL (3.5-5.0); CALCIUM 8.1 mg/dl (8.6-10.4)
[2018-04-09 07:06] LABS: VANCOMYCIN RANDOM 13.2 ug/mL
[2018-04-09 08:30] LABS: BANDS 4 % (0-2); LYMPHOCYTE 4 % (20-40); MONOCYTE 2 % (0-10); NEUTROPHIL 90 % (50-75); TOTAL CELLS COUNTED 100
[2018-04-09 08:31] LABS: PLATELET ESTIMATE SLIGHTLY DECREASED (NORMAL)
[2018-04-09 08:32] LABS: ANISOCYTOSIS MODERATE; HYPOCHROMIC SLIGHT; LARGE PLATELETS PRESENT; MICROCYTOSIS SLIGHT; POLYCHROMIC SLIGHT
[2018-04-09 08:33] LABS: POIKILOCYTOSIS SLIGHT; TOXIC GRANULATION PRESENT
[2018-04-09 08:34] LABS: SCHISTOCYTES SLIGHT
[2018-04-09] MEDS: Meropenem 500 MG in Sodium Chloride 0.9% 100 ML IVPB SCH ×2 (10:44)
[2018-04-09] MEDS: Multiple Vitamins Oral Solution PO SCH (10:52)
[2018-04-09] MEDS: Silver Sulfadiazine 1% Cream (400 gm) TOP SCH (16:35)
--- NOTE | 2018-04-09 18:03 | CP.PCM.PN ---
Subjective - Date & Time of Evaluation Date of Evaluation: 04/09/18 Time of Evaluation: 13:20 - Subjective Subjective: Patient seen and examined at bedside. patient awake alert tolerated NG tube feeds. (+) loose stools Objective - Vital Signs/Intake and Output Vital Signs (last 24 hours): Temp Pulse Resp BP Pulse Ox 98.4 F 110 H 24 107/66 81 L 04/09/18 16:00 04/09/18 16:17 04/09/18 16:17 04/09/18 16:17 04/09/18 16:17 Intake and Output: 04/09/18 04/09/18 06:59 18:59 Intake Total 905 640 Balance 905 640 - Medications Medications: Current Medications Albumin Human (Albumin Human 25% (12.5 Gm/50 Ml)) 25 gm IV MWF PRN PRN Reason: Other Albuterol/Ipratropium (Duoneb 3 Mg/0.5 Mg (3 Ml) Ud) 3 ml INH RQ6 PRN PRN Reason: Shortness of Breath Last Admin: 04/03/18 13:37 Dose: 3 ml Ascorbic Acid (Vitamin C 500 Mg Tab) 500 mg PO BID [facility] Last Admin: 04/09/18 17:10 Dose: 500 mg Calcium Acetate (Phoslo) 1,334 mg PO TIDCC [facility] Last Admin: 04/09/18 16:42 Dose: 1,334 mg Ergocalciferol (Drisdol 50,000 Intl Units Cap) 1 cap PO Q7D [facility] Last Admin: 04/04/18 12:11 Dose: 1 cap Ferrous Gluconate (Fergon) 324 mg PO TID [facility] Last Admin: 04/09/18 17:10 Dose: 324 mg Heparin Sodium (Porcine) (Heparin) 5,000 units SC Q12 [facility] Last Admin: 04/09/18 09:00 Dose: 5,000 units Doxycycline Hyclate 100 mg/ (Sodium Chloride) 100 mls @ 100 mls/hr IVPB Q12H [facility] PRN Reason: Protocol Last Admin: 04/09/18 12:56 Dose: 100 mls/hr Ampicillin 2 gm/ Sodium (Chloride) 100 mls @ 200 mls/hr IVPB Q8H [facility] PRN Reason: Protocol Last Admin: 04/09/18 12:55 Dose: 200 mls/hr Meropenem 500 mg/ Sodium (Chloride) 100 mls @ 100 mls/hr IVPB Q12H [facility] PRN Reason: Protocol Stop: 04/14/18 23:31 Last Admin: 04/09/18 10:44 Dose: 100 mls/hr Multivitamins/Vitamin C (Multi-Delyn Liquid) 5 ml PO DAILY [facility] Last Admin: 04/09/18 10:52 Dose: 5 ml Pantoprazole Sodium (Protonix Inj) 40 mg IVP DAILY [facility] Last Admin: 04/09/18 09:01 Dose: 40 mg Silver Sulfadiazine (Silvadene 1%) 0 ea TOP DAILY [facility] Last Admin: 04/09/18 16:35 Dose: 1 applic - Labs Labs: 04/09/18 06:33 04/09/18 06:35 PT 11.2 SECONDS (9.7-12.2) 04/05/18 06:15 INR 1.0 04/05/18 06:15 APTT 29 SECONDS (21-34) 04/05/18 06:15 Assessment and Plan - Assessment and Plan (Free Text) Assessment: -Wound care -diarrhea: check C. diff -Severe sepsis: blood culture grew listeria, wound grew staph aureua MSSA, continue abx as per ID, de-escalate abx -LULA: continue HD as per renal, keep bicarb >18 -Anemia:s/p multiple blood transfusion, will transfuse to keep hemodynamic stability -Anion gap metabolic acidosis: 2nd renal failure, monitor to keep HCO3 >18 -GI: contineu NG tube feeds and swithc to oral when speech and swallow obtained -DVT ppx: heparin SQ q12 -PUD ppx protonix -family currently discussing institutions where they would like to transfer -continue MVI and vitamin C. -Patient remains hemodynamically stable.
--- NOTE | 2018-04-09 22:28 | CP.PCM.PN ---
Subjective - Date & Time of Evaluation Date of Evaluation: 04/09/18 Time of Evaluation: 20:45 - Subjective Subjective: Pt seen and examined at bedside Objective - Vital Signs/Intake and Output Vital Signs (last 24 hours): Temp Pulse Resp BP Pulse Ox 98.4 F 112 H 22 84/56 L 100 04/09/18 16:00 04/09/18 21:32 04/09/18 21:32 04/09/18 21:32 04/09/18 21:32 Intake and Output: 04/09/18 04/10/18 18:59 06:59 Intake Total 680 170 Balance 680 170 - Medications Medications: Current Medications Albumin Human (Albumin Human 25% (12.5 Gm/50 Ml)) 25 gm IV MWF PRN PRN Reason: Other Albuterol/Ipratropium (Duoneb 3 Mg/0.5 Mg (3 Ml) Ud) 3 ml INH RQ6 PRN PRN Reason: Shortness of Breath Last Admin: 04/03/18 13:37 Dose: 3 ml Ascorbic Acid (Vitamin C 500 Mg Tab) 500 mg PO BID [facility] Last Admin: 04/09/18 17:10 Dose: 500 mg Calcium Acetate (Phoslo) 1,334 mg PO TIDCC [facility] Last Admin: 04/09/18 16:42 Dose: 1,334 mg Ergocalciferol (Drisdol 50,000 Intl Units Cap) 1 cap PO Q7D [facility] Last Admin: 04/04/18 12:11 Dose: 1 cap Ferrous Gluconate (Fergon) 324 mg PO TID [facility] Last Admin: 04/09/18 17:10 Dose: 324 mg Heparin Sodium (Porcine) (Heparin) 5,000 units SC Q12 [facility] Last Admin: 04/09/18 21:34 Dose: 5,000 units Doxycycline Hyclate 100 mg/ (Sodium Chloride) 100 mls @ 100 mls/hr IVPB Q12H [facility] PRN Reason: Protocol Last Admin: 04/09/18 12:56 Dose: 100 mls/hr Ampicillin 2 gm/ Sodium (Chloride) 100 mls @ 200 mls/hr IVPB Q8H [facility] PRN Reason: Protocol Last Admin: 04/09/18 20:00 Dose: 200 mls/hr Meropenem 500 mg/ Sodium (Chloride) 100 mls @ 100 mls/hr IVPB Q12H [facility] PRN Reason: Protocol Stop: 04/14/18 23:31 Last Admin: 04/09/18 10:44 Dose: 100 mls/hr Multivitamins/Vitamin C (Multi-Delyn Liquid) 5 ml PO DAILY [facility] Last Admin: 04/09/18 10:52 Dose: 5 ml Pantoprazole Sodium (Protonix Inj) 40 mg IVP DAILY [facility] Last Admin: 04/09/18 09:01 Dose: 40 mg Silver Sulfadiazine (Silvadene 1%) 0 ea TOP DAILY [facility] Last Admin: 04/09/18 16:35 Dose: 1 applic - Labs Labs: 04/09/18 06:33 04/09/18 06:35 PT 11.2 SECONDS (9.7-12.2) 04/05/18 06:15 INR 1.0 04/05/18 06:15 APTT 29 SECONDS (21-34) 04/05/18 06:15 Assessment and Plan (1) Coagulopathy Status: Acute (2) Altered mental status Status: Acute (3) Myoglobinuria Status: Acute (4) Renal failure Status: Acute (5) Listeria septicemia Status: Acute (6) Acute tubular necrosis Status: Acute (7) Acute respiratory failure Status: Acute
[2018-04-10] MEDS: AMPicillin 2 GM in Sodium Chloride 100 ML IVPB SCH ×4 (03:00→20:04)
[2018-04-10 07:02] LABS: BASO % 0.1 % (0.0-2.0); EOS # 0.1 K/uL (0.0-0.7); EOS % 0.2 % (0.0-4.0); HEMOGLOBIN 9.3 g/dL (11.0-16.0); LYMPH # 1.1 K/uL (1.0-4.3); LYMPH % 4.1 % (20.0-40.0); MEAN CORPUSCULAR HEMOGLOBIN 28.1 pg (27.0-31.0); MEAN CORPUSCULAR HGB CONC 33.8 g/dL (33.0-37.0); MEAN PLATELET VOLUME 9.6 fL (7.2-11.7); MONO # 0.9 K/uL (0.0-0.8); MONO % 3.4 % (0.0-10.0); NEUT % 92.2 % (50.0-75.0); NRBC % 0.1 % (0.0-2.0); PLATELET COUNT 162 K/uL (130-400); RBC 3.32 Mil/uL (3.80-5.20); RED CELL DISTRIBUTION WIDTH 18.1 % (11.5-14.5); WHITE BLOOD COUNT 27.2 K/uL (4.8-10.8)
--- NOTE | 2018-04-10 07:03 | CP.PCM.PN ---
Subjective - Date & Time of Evaluation Date of Evaluation: 04/10/18 Time of Evaluation: 06:45 - Subjective Subjective: Surgery- Dr. Moore Patient seen and examined at bedside this AM. No acute events overnight. bilateral LE dressing Clean/Intact with some strikethrough. Patient is able to converse and is in good spirits. Denies Chest pain, shortness of breath, nausea , vomiting Objective - Vital Signs/Intake and Output Vital Signs (last 24 hours): Temp Pulse Resp BP Pulse Ox 97.8 F 113 H 25 H 84/49 L 98 04/10/18 04:00 04/10/18 04:47 04/10/18 04:47 04/10/18 04:47 04/10/18 03:17 Intake and Output: 04/10/18 04/10/18 06:59 18:59 Intake Total 710 Balance 710 - Medications Medications: Current Medications Albumin Human (Albumin Human 25% (12.5 Gm/50 Ml)) 25 gm IV MWF PRN PRN Reason: Other Albuterol/Ipratropium (Duoneb 3 Mg/0.5 Mg (3 Ml) Ud) 3 ml INH RQ6 PRN PRN Reason: Shortness of Breath Last Admin: 04/03/18 13:37 Dose: 3 ml Ascorbic Acid (Vitamin C 500 Mg Tab) 500 mg PO BID [facility] Last Admin: 04/09/18 17:10 Dose: 500 mg Calcium Acetate (Phoslo) 1,334 mg PO TIDCC [facility] Last Admin: 04/09/18 16:42 Dose: 1,334 mg Ergocalciferol (Drisdol 50,000 Intl Units Cap) 1 cap PO Q7D [facility] Last Admin: 04/04/18 12:11 Dose: 1 cap Ferrous Gluconate (Fergon) 324 mg PO TID [facility] Last Admin: 04/09/18 17:10 Dose: 324 mg Heparin Sodium (Porcine) (Heparin) 5,000 units SC Q12 [facility] Last Admin: 04/09/18 21:34 Dose: 5,000 units Doxycycline Hyclate 100 mg/ (Sodium Chloride) 100 mls @ 100 mls/hr IVPB Q12H [facility] PRN Reason: Protocol Last Admin: 04/10/18 01:00 Dose: 100 mls/hr Ampicillin 2 gm/ Sodium (Chloride) 100 mls @ 200 mls/hr IVPB Q8H [facility] PRN Reason: Protocol Last Admin: 04/10/18 03:00 Dose: 200 mls/hr Meropenem 500 mg/ Sodium (Chloride) 100 mls @ 100 mls/hr IVPB Q12H [facility] PRN Reason: Protocol Stop: 04/14/18 23:31 Last Admin: 04/10/18 00:00 Dose: 100 mls/hr Norepinephrine Bitartrate 4 mg (/ Dextrose) 254 mls @ 15.24 mls/hr IV .[id number] PRN; Protocol; 4 MCG/MIN PRN Reason: TITRATE PER MD ORDER Multivitamins/Vitamin C (Multi-Delyn Liquid) 5 ml PO DAILY [facility] Last Admin: 04/09/18 10:52 Dose: 5 ml Pantoprazole Sodium (Protonix Inj) 40 mg IVP DAILY [facility] Last Admin: 04/09/18 09:01 Dose: 40 mg Silver Sulfadiazine (Silvadene 1%) 0 ea TOP DAILY [facility] Last Admin: 04/09/18 16:35 Dose: 1 applic - Labs Labs: 04/09/18 06:33 04/09/18 06:35 PT 11.2 SECONDS (9.7-12.2) 04/05/18 06:15 INR 1.0 04/05/18 06:15 APTT 29 SECONDS (21-34) 04/05/18 06:15 - Constitutional Appears: Non-toxic, No Acute Distress - Eye Exam Eye Exam: EOMI. absent: Scleral icterus - ENT Exam ENT Exam: Mucous Membranes Moist - Respiratory Exam Respiratory Exam: absent: Accessory Muscle Use, Respiratory Distress - Cardiovascular Exam Cardiovascular Exam: +S1, +S2. absent: Bradycardia, Tachycardia - GI/Abdominal Exam GI & Abdominal Exam: Soft, Hernia. absent: Distended, Guarding, Rigid, Tenderness - Extremities Exam Additional comments: bilateral lower extremities dressing c/d/i with strikethrough palpable pedal pulses bilateral - Neurological Exam Neurological Exam: Alert, Awake, Oriented x3 - Skin Skin Exam: Rash, Vesicles, Warm Assessment and Plan - Assessment and Plan (Free Text) Assessment: 52F s/p bilateral LE debridement of nectrotic skin, soft tissue, and muscle POD #4 Plan: - will change dressing at bedside today - f/u path - silvadene and dry dressing ontop - cleared from surgical standpoint to transfer to burn unit - d/w Dr. Moore surgical attending PGY1
[2018-04-10 07:16] LABS: ARTERIAL BLOOD GAS HCO3 18.1 mmol/L (21-28); ARTERIAL BLOOD GAS O2 SAT 41.5 % (95-98); ARTERIAL BLOOD GAS PCO2 35 mm/Hg (35-45); ARTERIAL BLOOD GAS PH 7.33 (7.35-7.45); ARTERIAL BLOOD GAS PO2 23 mm/Hg (80-100); ARTERIAL BLOOD GAS TCO2 19.6 mmol/L (22-28)
[2018-04-10 07:40] LABS: ALB/GLOB RATIO 0.9 (1.0-2.1); ALBUMIN 2.6 g/dL (3.5-5.0); CALCIUM 8.4 mg/dl (8.6-10.4)
[2018-04-10] MEDS: Albuterol-Ipratrop 3 mg / 0.5 (3 ml) UD INH PRN ×2 (08:30→14:28)
--- NOTE | 2018-04-10 08:30 | RAD ---
HISTORY: eval PNA COMPARISON: 04/07/2018 FINDINGS: LUNGS: Right infrahilar linear atelectasis. No consolidation elsewhere. PLEURA: No significant pleural effusion identified, no pneumothorax apparent. CARDIOVASCULAR: Nasogastric tube, left IJ central venous catheter and right tunneled central venous dialysis catheter are all unchanged. OSSEOUS STRUCTURES: No significant abnormalities. VISUALIZED UPPER ABDOMEN: Normal. OTHER FINDINGS: None. IMPRESSION: New right infrahilar atelectasis. Otherwise no change.
[2018-04-10 08:44] LABS: BANDS 3 % (0-2); BASOPHIL 1 % (0-2); LYMPHOCYTE 6 % (20-40); MONOCYTE 4 % (0-10); NEUTROPHIL 85 % (50-75); REACTIVE LYMPHOCYTES 1 % (0-0); TOTAL CELLS COUNTED 100
[2018-04-10 08:45] LABS: ANISOCYTOSIS MODERATE; HYPOCHROMIC SLIGHT; PLATELET ESTIMATE NORMAL (NORMAL); POLYCHROMIC SLIGHT; TOXIC GRANULATION PRESENT
[2018-04-10 08:46] LABS: LARGE PLATELETS PRESENT
[2018-04-10 09:28] LABS: HIV 1&2 ANTIBODY NEGATIVE (NEGATIVE)
[2018-04-10] MEDS ORDERED: Silver Sulfadiazine 1% Cream (20 gm) TOP SCH (09:30)
[2018-04-10] MEDS: Multiple Vitamins Oral Solution PO SCH (09:45)
[2018-04-10] MEDS: Silver Sulfadiazine 1% Cream (400 gm) TOP SCH ×3 (09:48→22:39)
--- NOTE | 2018-04-10 10:00 | CP.PCM.PN ---
Subjective - Date & Time of Evaluation Date of Evaluation: 04/10/18 Time of Evaluation: 09:53 - Subjective Subjective: Nephrology Consultation Note: Assessment: critical Anuric Acute Kidney Injury (N17.9) ? 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 On admission she presented with severe anemia, osito, sepsis syndrome, leukamoid reaction, work up showing low C3, nephrotic range proteinuria, ? pelvic mass. no prior hx of renal failure per charts and family. Further work up/management as per primary team Objective - Vital Signs/Intake and Output Vital Signs (last 24 hours): Temp Pulse Resp BP Pulse Ox 97.8 F 101 H 23 88/58 L 99 04/10/18 04:00 04/10/18 07:28 04/10/18 07:28 04/10/18 07:28 04/10/18 07:10 Intake and Output: 04/10/18 04/10/18 06:59 18:59 Intake Total 745 Balance 745 - Medications Medications: Current Medications Albuterol/Ipratropium (Duoneb 3 Mg/0.5 Mg (3 Ml) Ud) 3 ml INH RQ6 PRN PRN Reason: Shortness of Breath Last Admin: 04/10/18 08:30 Dose: 3 ml Ascorbic Acid (Vitamin C 500 Mg Tab) 500 mg PO BID [facility] Last Admin: 04/10/18 09:45 Dose: 500 mg Calcium Acetate (Phoslo) 1,334 mg PO TIDCC [facility] Last Admin: 04/10/18 08:20 Dose: 1,334 mg Ergocalciferol (Drisdol 50,000 Intl Units Cap) 1 cap PO Q7D [facility] Last Admin: 04/04/18 12:11 Dose: 1 cap Heparin Sodium (Porcine) (Heparin) 5,000 units SC Q12 [facility] Last Admin: 04/10/18 09:47 Dose: 5,000 units Doxycycline Hyclate 100 mg/ (Sodium Chloride) 100 mls @ 100 mls/hr IVPB Q12H [facility] PRN Reason: Protocol Last Admin: 04/10/18 01:00 Dose: 100 mls/hr Ampicillin 2 gm/ Sodium (Chloride) 100 mls @ 200 mls/hr IVPB Q8H [facility] PRN Reason: Protocol Last Admin: 04/10/18 03:00 Dose: 200 mls/hr Meropenem 500 mg/ Sodium (Chloride) 100 mls @ 100 mls/hr IVPB Q12H [facility] PRN Reason: Protocol Stop: 04/14/18 23:31 Last Admin: 04/10/18 00:00 Dose: 100 mls/hr Norepinephrine Bitartrate 4 mg (/ Sodium Chloride) 254 mls @ 15.24 mls/hr IV .[id number] PRN; Protocol; 4 MCG/MIN PRN Reason: TITRATE PER MD ORDER Last Admin: 04/10/18 07:10 Dose: 10 mcg/min, 38.1 mls/hr Multivitamins/Vitamin C (Multi-Delyn Liquid) 5 ml PO DAILY [facility] Last Admin: 04/10/18 09:45 Dose: 5 ml Pantoprazole Sodium (Protonix Inj) 40 mg IVP DAILY [facility] Last Admin: 04/10/18 09:45 Dose: 40 mg Silver Sulfadiazine (Silvadene 1%) 0 ea TOP DAILY [facility] Last Admin: 04/10/18 09:48 Dose: 1 applic Silver Sulfadiazine (Silvadene 1% 20 Gm) 0 ea TOP Q12H [facility] - Labs Labs: 04/10/18 06:55 04/10/18 06:55 PT 11.2 SECONDS (9.7-12.2) 04/05/18 06:15 INR 1.0 04/05/18 06:15 APTT 29 SECONDS (21-34) 04/05/18 06:15
[2018-04-10] MEDS: Meropenem 500 MG in Sodium Chloride 0.9% 100 ML IVPB SCH ×3 (11:30→13:58)
[2018-04-10 12:12] LABS: ANA PATTERN SPECKLED
--- NOTE | 2018-04-10 12:51 | CP.CCUPN ---
CCU Subjective - Physician Review Subjective (Free Text): Patient has been and examined. Patient extubated on 04/07. Now tolerating 02NC Patient was able to answer Review of systems with head nods. She denies any fevers, chills, or SOB. She denies any chest pain or palpitations. She denies any abdominal pain today. CCU Objective - Vital Signs / Intake & Output Vital Signs (Last 4 hours): Vital Signs Temp Pulse Pulse Resp BP BP Pulse Ox 04/10/18 12:12 120 H 22 80/45 L 89 L 04/10/18 12:10 121 H 24 68/46 L 96 04/10/18 12:00 97.5 F L 118 H 117 H 28 H 82/52 L 96 04/10/18 11:55 118 H 25 H 82/52 L 96 04/10/18 11:45 117 H 25 H 96/58 L 96 04/10/18 11:40 114 H 26 H 96/58 L 87 L 04/10/18 11:30 117 H 20 86/51 L 98 04/10/18 11:25 117 H 28 H 86/51 L 90 L 04/10/18 11:15 116 H 18 79/62 L 98 04/10/18 11:12 118 H 28 H 79/52 L 92 L 04/10/18 11:10 117 H 26 H 78/46 L 92 L 04/10/18 11:00 127 H 120 H 27 H 88/52 L 96 04/10/18 10:55 128 H 27 H 88/52 L 96 04/10/18 10:45 97.8 F 121 H 121 H 25 H 103/60 103/60 98 04/10/18 10:43 114 H 26 H 103/60 99 04/10/18 10:40 117 H 26 H 94/65 L 97 04/10/18 10:00 111 H 99 04/10/18 09:52 115 H 98/63 L 94 L 04/10/18 09:00 109 H 23 99 04/10/18 08:52 109 H 25 H 105/64 100 Intake and Output (Last 8hrs): Intake & Output 04/09/18 04/10/18 04/10/18 22:59 06:59 14:59 Intake Total 275 550 337.5 Output Total 200 Balance 275 550 137.5 Weight 121 lb 5 oz Intake: Intake, IV Amount 100 300 217.5 Left Medial Port Internal 100 Jugular Left Proximal Port 0 300 217.5 Internal Jugular Tube Feeding 175 250 120 Output: Gastric Amount 200 Stomach 200 Other: # Voids Urine, Voided 0 # Bowel Movements 1 3 0 - Physical Exam Head: Positive for: Atraumatic Mouth: Positive for: Moist Mucous Membranes Respiratory/Chest: Positive for: Good Air Exchange. Negative for: Respiratory Distress, Accessory Muscle Use Cardiovascular: Positive for: Normal S1, S2, Gallop Abdomen: Positive for: Distention, Other (abdomen reveals a 5 cm circular bulb no Bowel sounds in bulb). Negative for: Tenderness, Rebound, Guarding Upper Extremity: Positive for: Edema. Negative for: Cyanosis Lower Extremity: Positive for: Edema, Other (non-blanching ecchymotic lesions covering more than 25 percent of lower extremity and abdomen. S/P debridement with Dressing b/L. ) Neurological: Positive for: GCS=15 (15) Psychiatric: Positive for: Alert, Oriented x 3 Other physical findings (Free Text): Purpuric Lesions from Toes to Abdomen. B/L Lower Extremity W/ dressings. - Medications Active Medications: Active Medications Generic Name Dose Route Start Last Admin Trade Name Freq PRN Reason Stop Dose Admin Albuterol/Ipratropium 3 ml 04/03/18 09:30 04/10/18 08:30 Duoneb 3 Mg/0.5 Mg (3 Ml) Ud INH 3 ml RQ6 PRN Administration Shortness of Breath Ascorbic Acid 500 mg 04/02/18 10:00 04/10/18 09:45 Vitamin C 500 Mg Tab PO 500 mg BID NOLAN Administration Calcium Acetate 1,334 mg 04/05/18 09:32 04/10/18 08:20 Phoslo PO 1,334 mg TIDCC NOLAN Administration Ergocalciferol 1 cap 04/04/18 10:45 04/04/18 12:11 Drisdol 50,000 Intl Units Cap PO 1 cap Q7D NOLAN Administration Heparin Sodium (Porcine) 5,000 units 04/02/18 22:00 04/10/18 09:47 Heparin SC 5,000 units Q12 NOLAN Administration Doxycycline Hyclate 100 mg/ 100 mls @ 100 mls/hr 04/02/18 13:00 04/10/18 01: 00 Sodium Chloride IVPB 100 mls/hr Q12H NOLAN Administration Protocol Ampicillin 2 gm/ Sodium 100 mls @ 200 mls/hr 04/06/18 12:00 04/10/18 12:00 Chloride IVPB Not Given Q8H NOLAN Protocol Meropenem 500 mg/ Sodium 100 mls @ 100 mls/hr 04/07/18 23:30 04/10/18 11:30 Chloride IVPB 04/14/18 23:31 Not Given Q12H NOLAN Protocol Norepinephrine Bitartrate 4 mg 254 mls @ 15.24 mls/hr 04/10/18 07:15 07:10 / Sodium Chloride IV 10 mcg/min .[id number] PRN 38.1 mls/hr TITRATE PER MD ORDER Administration Protocol 4 MCG/MIN Albumin Human 50 mls @ 50 mls/hr 04/10/18 11:07 04/10/18 11:17 Albumin Human 25% (12.5 Gm/50 Ml) IVPB 04/10/18 13:06 1 mls/min Q1H NOLAN Administration Multivitamins/Vitamin C 5 ml 04/03/18 10:15 04/10/18 09:45 Multi-Delyn Liquid PO 5 ml DAILY NOLAN Administration Pantoprazole Sodium 40 mg 04/02/18 10:00 04/10/18 09:45 Protonix Inj IVP 40 mg DAILY NOLAN Administration Silver Sulfadiazine 0 ea 04/08/18 10:00 04/10/18 09:48 Silvadene 1% TOP 1 applic DAILY NOLAN Administration Silver Sulfadiazine 0 ea 04/10/18 09:30 Silvadene 1% 20 Gm TOP Q12H NOLAN - Patient Studies Lab Studies: Microbiology Studies 04/06/18 11:47 Gram Stain - Final Leg - Left Wound Culture - Final Staphylococcus Aureus Lab Studies 04/10/18 04/10/18 04/10/18 Range/Units 07:05 06:55 06:55 WBC 27.2 H (4.8-10.8) K/uL RBC 3.32 L (3.80-5.20) Mil/uL Hgb 9.3 L (11.0-16.0) g/dL Hct 27.5 L (34.0-47.0) % MCV 83.0 (81.0-99.0) fL MCH 28.1 (27.0-31.0) pg MCHC 33.8 (33.0-37.0) g/dL RDW 18.1 H (11.5-14.5) % Plt Count 162 (130-400) K/uL MPV 9.6 (7.2-11.7) fL Neut % (Auto) 92.2 H (50.0-75.0) % Lymph % (Auto) 4.1 L (20.0-40.0) % [place] % (Auto) 3.4 (0.0-10.0) % Eos % (Auto) 0.2 (0.0-4.0) % Baso % (Auto) 0.1 (0.0-2.0) % Neut # (Auto) 25.0 H (1.8-7.0) K/uL Lymph # (Auto) 1.1 (1.0-4.3) K/uL [place] # (Auto) 0.9 H (0.0-0.8) K/uL Eos # (Auto) 0.1 (0.0-0.7) K/uL Baso # (Auto) 0.0 (0.0-0.2) K/uL Neutrophils % (Manual) 85 H (50-75) % Band Neutrophils % 3 H (0-2) % Lymphocytes % (Manual) 6 L (20-40) % Reactive Lymphs % 1 H (0-0) % Monocytes % (Manual) 4 (0-10) % Basophils % (Manual) 1 (0-2) % Toxic Granulation Present Platelet Estimate Normal (NORMAL) Large Platelets Present Polychromasia Slight Hypochromasia (manual) Slight Anisocytosis (manual) Moderate Puncture Site Lb pCO2 35 (35-45) mm/Hg pO2 23 L* (80-100) mm/Hg HCO3 18.1 L (21-28) mmol/L ABG pH 7.33 L (7.35-7.45) ABG Total CO2 19.6 L (22-28) mmol/L ABG O2 Saturation 41.5 L (95-98) % ABG Base Excess -6.6 L (-2.0-3.0) mmol/L Jann Test Na ABG Potassium 3.9 (3.6-5.2) mmol/L Glucose 84 (65-105) mg/dl Lactate 2.0 (0.7-2.1) mmol/L Liter Flow 4.0 Blood Gas Comments Pos venous pt bp low Crit Value Called To Dr lomeli Crit Value Called By Kade whitfield [facility] Crit Value Read Back Y Blood Gas Notified Time 715 Sodium 137.0 139 (132-148) mmol/L Potassium 4.0 (3.6-5.2) mmol/L Chloride 105.0 102 (98-107) mmol/L Carbon Dioxide 19 L (22-30) mmol/L Anion Gap 22 H (10-20) BUN 66 H (7-17) mg/dL Creatinine 2.8 H (0.7-1.2) mg/dL Est GFR ( Amer) 21 Est GFR (Non-Af Amer) 18 POC Glucose (mg/dL) (65-110) mg/dL Random Glucose 61 L (65-105) mg/dL Calcium 8.4 L (8.6-10.4) mg/dl Phosphorus 5.9 H (2.5-4.5) mg/dL Magnesium 2.2 (1.6-2.3) mg/dL Total Bilirubin 1.2 (0.2-1.3) mg/dL AST 25 (14-36) U/L ALT 31 (9-52) U/L Alkaline Phosphatase 163 H (38-126) U/L Total Protein 5.4 L (6.3-8.3) g/dL Albumin 2.6 L D (3.5-5.0) g/dL Globulin 2.8 (2.2-3.9) gm/dL Albumin/Globulin Ratio 0.9 L (1.0-2.1) Arterial Blood Potassium 3.9 (3.6-5.2) mmol/L MAYI 6 Profile (NEGATIVE) MAYI Titer MAYI Pattern Striated Muscle Ab Myocardial Ab Titer Anti-Myocardial Ab (NEGATIVE) Reticulin Ab Titer Reticulin IgA Antibody (NEGATIVE) HIV 1&2 Antibody Screen (NEGATIVE) 04/09/18 04/09/18 04/09/18 Range/Units 23:51 17:49 06:35 WBC (4.8-10.8) K/uL RBC (3.80-5.20) Mil/uL Hgb (11.0-16.0) g/dL Hct (34.0-47.0) % MCV (81.0-99.0) fL MCH (27.0-31.0) pg MCHC (33.0-37.0) g/dL RDW (11.5-14.5) % Plt Count (130-400) K/uL MPV (7.2-11.7) fL Neut % (Auto) (50.0-75.0) % Lymph % (Auto) (20.0-40.0) % [place] % (Auto) (0.0-10.0) % Eos % (Auto) (0.0-4.0) % Baso % (Auto) (0.0-2.0) % Neut # (Auto) (1.8-7.0) K/uL Lymph # (Auto) (1.0-4.3) K/uL [place] # (Auto) (0.0-0.8) K/uL Eos # (Auto) (0.0-0.7) K/uL Baso # (Auto) (0.0-0.2) K/uL Neutrophils % (Manual) (50-75) % Band Neutrophils % (0-2) % Lymphocytes % (Manual) (20-40) % Reactive Lymphs % (0-0) % Monocytes % (Manual) (0-10) % Basophils % (Manual) (0-2) % Toxic Granulation Platelet Estimate (NORMAL) Large Platelets Polychromasia Hypochromasia (manual) Anisocytosis (manual) Puncture Site pCO2 (35-45) mm/Hg pO2 (80-100) mm/Hg HCO3 (21-28) mmol/L ABG pH (7.35-7.45) ABG Total CO2 (22-28) mmol/L ABG O2 Saturation (95-98) % ABG Base Excess (-2.0-3.0) mmol/L Jann Test ABG Potassium (3.6-5.2) mmol/L Glucose (65-105) mg/dl Lactate (0.7-2.1) mmol/L Liter Flow Blood Gas Comments Crit Value Called To Crit Value Called By Crit Value Read Back Blood Gas Notified Time Sodium (132-148) mmol/L Potassium (3.6-5.2) mmol/L Chloride (98-107) mmol/L Carbon Dioxide (22-30) mmol/L Anion Gap (10-20) BUN (7-17) mg/dL Creatinine (0.7-1.2) mg/dL Est GFR ( Amer) Est GFR (Non-Af Amer) POC Glucose (mg/dL) 103 94 (65-110) mg/dL Random Glucose (65-105) mg/dL Calcium (8.6-10.4) mg/dl Phosphorus (2.5-4.5) mg/dL Magnesium (1.6-2.3) mg/dL Total Bilirubin (0.2-1.3) mg/dL AST (14-36) U/L ALT (9-52) U/L Alkaline Phosphatase (38-126) U/L Total Protein (6.3-8.3) g/dL Albumin (3.5-5.0) g/dL Globulin (2.2-3.9) gm/dL Albumin/Globulin Ratio (1.0-2.1) Arterial Blood Potassium (3.6-5.2) mmol/L MAYI 6 Profile (NEGATIVE) MAYI Titer MAYI Pattern Striated Muscle Ab Myocardial Ab Titer Anti-Myocardial Ab (NEGATIVE) Reticulin Ab Titer Reticulin IgA Antibody (NEGATIVE) HIV 1&2 Antibody Screen Negative (NEGATIVE) 04/06/18 04/03/18 Range/Units 12:12 18:23 WBC (4.8-10.8) K/uL RBC (3.80-5.20) Mil/uL Hgb (11.0-16.0) g/dL Hct (34.0-47.0) % MCV (81.0-99.0) fL MCH (27.0-31.0) pg MCHC (33.0-37.0) g/dL RDW (11.5-14.5) % Plt Count (130-400) K/uL MPV (7.2-11.7) fL Neut % (Auto) (50.0-75.0) % Lymph % (Auto) (20.0-40.0) % [place] % (Auto) (0.0-10.0) % Eos % (Auto) (0.0-4.0) % Baso % (Auto) (0.0-2.0) % Neut # (Auto) (1.8-7.0) K/uL Lymph # (Auto) (1.0-4.3) K/uL [place] # (Auto) (0.0-0.8) K/uL Eos # (Auto) (0.0-0.7) K/uL Baso # (Auto) (0.0-0.2) K/uL Neutrophils % (Manual) (50-75) % Band Neutrophils % (0-2) % Lymphocytes % (Manual) (20-40) % Reactive Lymphs % (0-0) % Monocytes % (Manual) (0-10) % Basophils % (Manual) (0-2) % Toxic Granulation Platelet Estimate (NORMAL) Large Platelets Polychromasia Hypochromasia (manual) Anisocytosis (manual) Puncture Site pCO2 (35-45) mm/Hg pO2 (80-100) mm/Hg HCO3 (21-28) mmol/L ABG pH (7.35-7.45) ABG Total CO2 (22-28) mmol/L ABG O2 Saturation (95-98) % ABG Base Excess (-2.0-3.0) mmol/L Jann Test ABG Potassium (3.6-5.2) mmol/L Glucose (65-105) mg/dl Lactate (0.7-2.1) mmol/L Liter Flow Blood Gas Comments Crit Value Called To Crit Value Called By Crit Value Read Back Blood Gas Notified Time Sodium (132-148) mmol/L Potassium (3.6-5.2) mmol/L Chloride (98-107) mmol/L Carbon Dioxide (22-30) mmol/L Anion Gap (10-20) BUN (7-17) mg/dL Creatinine (0.7-1.2) mg/dL Est GFR ( Amer) Est GFR (Non-Af Amer) POC Glucose (mg/dL) (65-110) mg/dL Random Glucose (65-105) mg/dL Calcium (8.6-10.4) mg/dl Phosphorus (2.5-4.5) mg/dL Magnesium (1.6-2.3) mg/dL Total Bilirubin (0.2-1.3) mg/dL AST (14-36) U/L ALT (9-52) U/L Alkaline Phosphatase (38-126) U/L Total Protein (6.3-8.3) g/dL Albumin (3.5-5.0) g/dL Globulin (2.2-3.9) gm/dL Albumin/Globulin Ratio (1.0-2.1) Arterial Blood Potassium (3.6-5.2) mmol/L MAYI 6 Profile Positive H (NEGATIVE) MAYI Titer 1:40 H MAYI Pattern Speckled H Striated Muscle Ab TNP Myocardial Ab Titer TNP Anti-Myocardial Ab Negative (NEGATIVE) Reticulin Ab Titer TNP Reticulin IgA Antibody Negative (NEGATIVE) HIV 1&2 Antibody Screen (NEGATIVE) Laboratory Results - last 24 hr 04/03/18 04/06/18 04/09/18 18:23 12:12 06:35 WBC RBC Hgb Hct MCV MCH MCHC RDW Plt Count MPV Neut % (Auto) Lymph % (Auto) [place] % (Auto) Eos % (Auto) Baso % (Auto) Neut # (Auto) Lymph # (Auto) [place] # (Auto) Eos # (Auto) Baso # (Auto) Neutrophils % (Manual) Band Neutrophils % Lymphocytes % (Manual) Reactive Lymphs % Monocytes % (Manual) Basophils % (Manual) Toxic Granulation Platelet Estimate Large Platelets Polychromasia Hypochromasia (manual) Anisocytosis (manual) Puncture Site pCO2 pO2 HCO3 ABG pH ABG Total CO2 ABG O2 Saturation ABG Base Excess Jann Test ABG Potassium Glucose Lactate Liter Flow Blood Gas Comments Crit Value Called To Crit Value Called By Crit Value Read Back Blood Gas Notified Time Sodium Potassium Chloride Carbon Dioxide Anion Gap BUN Creatinine Est GFR ( Amer) Est GFR (Non-Af Amer) POC Glucose (mg/dL) Random Glucose Calcium Phosphorus Magnesium Total Bilirubin AST ALT Alkaline Phosphatase Total Protein Albumin Globulin Albumin/Globulin Ratio Arterial Blood Potassium MAYI 6 Profile Positive H MAYI Titer 1:40 H MAYI Pattern Speckled H Striated Muscle Ab TNP Myocardial Ab Titer TNP Anti-Myocardial Ab Negative Reticulin Ab Titer TNP Reticulin IgA Antibody Negative HIV 1&2 Antibody Screen Negative 04/09/18 04/09/18 04/10/18 17:49 23:51 06:55 WBC 27.2 H RBC 3.32 L Hgb 9.3 L Hct 27.5 L MCV 83.0 MCH 28.1 MCHC 33.8 RDW 18.1 H Plt Count 162 MPV 9.6 Neut % (Auto) 92.2 H Lymph % (Auto) 4.1 L [place] % (Auto) 3.4 Eos % (Auto) 0.2 Baso % (Auto) 0.1 Neut # (Auto) 25.0 H Lymph # (Auto) 1.1 [place] # (Auto) 0.9 H Eos # (Auto) 0.1 Baso # (Auto) 0.0 Neutrophils % (Manual) 85 H Band Neutrophils % 3 H Lymphocytes % (Manual) 6 L Reactive Lymphs % 1 H Monocytes % (Manual) 4 Basophils % (Manual) 1 Toxic Granulation Present Platelet Estimate Normal Large Platelets Present Polychromasia Slight Hypochromasia (manual) Slight Anisocytosis (manual) Moderate Puncture Site pCO2 pO2 HCO3 ABG pH ABG Total CO2 ABG O2 Saturation ABG Base Excess Jann Test ABG Potassium Glucose Lactate Liter Flow Blood Gas Comments Crit Value Called To Crit Value Called By Crit Value Read Back Blood Gas Notified Time Sodium Potassium Chloride Carbon Dioxide Anion Gap BUN Creatinine Est GFR ( Amer) Est GFR (Non-Af Amer) POC Glucose (mg/dL) 94 103 Random Glucose Calcium Phosphorus Magnesium Total Bilirubin AST ALT Alkaline Phosphatase Total Protein Albumin Globulin Albumin/Globulin Ratio Arterial Blood Potassium MAYI 6 Profile MAYI Titer MAYI Pattern Striated Muscle Ab Myocardial Ab Titer Anti-Myocardial Ab Reticulin Ab Titer Reticulin IgA Antibody HIV 1&2 Antibody Screen 04/10/18 04/10/18 06:55 07:05 WBC RBC Hgb Hct MCV MCH MCHC RDW Plt Count MPV Neut % (Auto) Lymph % (Auto) [place] % (Auto) Eos % (Auto) Baso % (Auto) Neut # (Auto) Lymph # (Auto) [place] # (Auto) Eos # (Auto) Baso # (Auto) Neutrophils % (Manual) Band Neutrophils % Lymphocytes % (Manual) Reactive Lymphs % Monocytes % (Manual) Basophils % (Manual) Toxic Granulation Platelet Estimate Large Platelets Polychromasia Hypochromasia (manual) Anisocytosis (manual) Puncture Site Lb pCO2 35 pO2 23 L* HCO3 18.1 L ABG pH 7.33 L ABG Total CO2 19.6 L ABG O2 Saturation 41.5 L ABG Base Excess -6.6 L Jann Test Na ABG Potassium 3.9 Glucose 84 Lactate 2.0 Liter Flow 4.0 Blood Gas Comments Pos venous pt bp low Crit Value Called To Dr lomeli Crit Value Called By Kade whitfield plaster foreman Crit Value Read Back Y Blood Gas Notified Time 715 Sodium 139 137.0 Potassium 4.0 Chloride 102 105.0 Carbon Dioxide 19 L Anion Gap 22 H BUN 66 H Creatinine 2.8 H Est GFR ( Amer) 21 Est GFR (Non-Af Amer) 18 POC Glucose (mg/dL) Random Glucose 61 L Calcium 8.4 L Phosphorus 5.9 H Magnesium 2.2 Total Bilirubin 1.2 AST 25 ALT 31 Alkaline Phosphatase 163 H Total Protein 5.4 L Albumin 2.6 L D Globulin 2.8 Albumin/Globulin Ratio 0.9 L Arterial Blood Potassium 3.9 MAYI 6 Profile MAYI Titer MAYI Pattern Striated Muscle Ab Myocardial Ab Titer Anti-Myocardial Ab Reticulin Ab Titer Reticulin IgA Antibody HIV 1&2 Antibody Screen Fingerstick Blood Sugar Results: 100 Review of Systems - Review of Systems Review of Systems: Please see subjective Critical Care Progress Note - Nutrition Nutrition: Nutrition Category Date Time Status NPO Diet [DIET] Diets 04/06/18 Breakfast Active Assessment/Plan - Assessment and Plan (Free Text) Assessment: 52 year old female with Unspecified medical history who presented to [facility] [place] ICU from [facility]. [place]. On Admission patient was found to have leukocytosis and significant skin excoriations, foul smelling ulcer in the right leg, multiple ecchymosis in the abdomen/groin area/lower extremity, necrotic tissue on lower extremity and bullae. Patiently found to be severely Anemic and was transfused a total of 5 PRBC's. Patient is edematous in the upper and lower extremities b/ l. 04/04: Transfused 2 Units of PRBC's 04/06: Lower extremity Wound Debridement, Began Discussion of Transfer to Burn Unit. 04/07: Extubated. Plan: Neuro GCS: 15 Sedation: None Cardio: ECHO (04/02): Shows Normal EF (55%) Pulm: CXR (04/04): Endotracheal and NG tube in place. Mild venous congestion. Bilateral hilar prominence. Tortuous ectatic aorta. Biapical pleural thickening with upper lobe granulomatous changes. CXR (04/10): New Right infrahilar atelectasis. Otherwise no change. ABG (04/04): pH-7.56, C02-24, 02-188, HCO3-24.6 ABG (04/05): pH-7.56, C02 - 26, 02-157, HCO3-23.9 ABG ( 04/07): pH-7.52, C02 - 27, 02 - 187, HCO3-24.6 Extubated on 04/07. Now Tolerating NC 02 GI A: Elevated LFT's (Resolved) Abd/Pelvis CT (04/02/18): Prominent gallbladder distention with cholelithiasis. Clinically correlate for potential cholecystitis. Possible ileus or early distal small bowel obstruction. Potential segmental colitis in various large-bowel segments though this is limited in diagnostic power due to collapse of the majority of the large bowel. Mild bilateral hydroureteronephrosis potentially on the basis of enlarged myomatous uterus. Potential infectious or inflammatory process affecting the uterus. Myomatous uterine changes also noted. Anasarca and trace ascites. Hepatitis Panel - NEGATIVE OBGYN A: Uterine Mass TV US (Held) until patient is more stable. Renal A: LULA , Hypocalcemia, Hyperphosphetemia, Hyponatremia Complement Studies per ID - NEGATIVE Uehling -137 Lambda-94, Lupus, MicroAlbumin w/ Cr - Elevated Total Protein - Elevated , Serum Immunifixation Detected. Renal US (04/04): B/L mild hyronephrosis. small non-obstructing renal calculi in Right Kidney phos binders, nephrovite, vit D, iron supplements per Nephro urology consult for b/l hydronephrosis per Nephro, Recs appreciated. Hemodialysis MWF, Dialysis Today. via permacath (place don 04/06) Monitor Electrolytes Heme/Onc A: Iron Def. Anemia s/p 5 Units of PRBCs, thromboycytopenia (Acute). 2 Units of PRBC's transfused on 04/04/18. Hematology/Onc Consulted (Dr. Ospina), Recs Appreciated Myeloproliferative Disorder RUle OUT. BCR/ABL1 GENE PCR - Not Detected, MACY - Negative? , ASO- Negative HgB Stable CA 125 - 90.6 , CA19-9 - 286 , CEA - 5.7. All ordered tumor markers elevated. DIC Workup to rule out Purpura Fulminans -Fibrinogen (WNL) Fibrin Split Products - Order Cancelled in AM (Unknown who) , Pt/PTT, Retic Count (WNL), Haptoglobin (Elevated), D- Dimer (Elevated, likely due to Malignancy) Haptoglobin - 346.1 (Elevated) HIT - NEGATIVE EPO per Renal. 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 ID A: Leukocytosis (Improving), Purpura Fulminans? ID Consulted (Dr. Camarena, Recs appreciated) Lower Ext CT (04/02): Anasarca type pattern is favored over fasciitis of the bilateral lower extremities diffusely and is favored over fasciitis the fasciitis is still not excluded, a CT diagnosis is difficult to make without intravenous contrast. Necrotizing fasciitis is not identified however. Further clinical correlation is recommended. Blood Cultures (04/01 [place] ED): POSITIVE for Listeria Monocytogenes Blood Cultures (04/02): NEGATIVE Wound Cultures (04/02): Left and Right leg NEGATIVE (Prelim) ESR (04/03): WNL Hepatitis Panel - NEGATIVE Anitbiotics: Cont. Doxycylcine, Meropenem, Ampicillin. General Surgery/Vascular Surgery Consulted, Recs Appreciated. Stool for Vibrio Cholera per ID Wound Cultures - POSITIVE for Coagulase Negative Staph - Likely contamination. DIC Workup showed Elevated Haptoglobin and elevated D-dimer. Integumentary A: Status post wound debridement of Lower Extremity on 04/07. Will discuss will family transfer to Burn Unit for better management of extensive skin wounds. Silvadene w/ Xeroform for Diffuse Wounds. Debridement Speciment - "Fragments of Fibroconnective Tissue with Acute and chronic inflammation, abscess formation, granulation tissue, bacaterial colonies and reactive tissue) Vitamin C BID Endo A: Vitamin D Def. 2000 IU Vitamin D Daily Proph Protonix IV Daily Heparin Q12 Patient seen and discussed with ICU Attending Mik Huynh, PGY-1
--- NOTE | 2018-04-10 14:35 | CP.PCM.CON ---
History of Present Illness - History of Present Illness History of Present Illness: 52 year old found un conscious [place]. Initially patient was treated at [facility] and transferred to [facility]. Patient was found to be septic and in renal failure. It was necessary to intubated the patient. Subsequently, she was diagnosed to have listeria sepsis. There was no significant past history. A complete work up for connective tissue disease was negative. Review of Systems - Review of Systems Systems not reviewed;Unavailable: Unstable Vital Signs - Gastrointestinal Gastrointestinal: Vomiting - Genitourinary Genitourinary: Bladder Distension - Integumentary Integumentary: Sores, Striae - Neurological Neurological: Syncope Past Patient History - Tetanus Immunizations Tetanus Immunization: Unknown - Past Medical History & Family History Past Medical History?: Yes - Past Social History Smoking Status: Never Smoked Chewing Tobacco Use: No Cigar Use: No Alcohol: Occasional - CARDIAC Hx Cardiac Disorders: (UNKNOWN) - PULMONARY Hx Respiratory Disorders: (UNKNOWN) - NEUROLOGICAL Hx Neurological Disorder: (UNKNOWN) - HEENT Hx HEENT Problems: (UNKNOWN) - RENAL Hx Chronic Kidney Disease: (UNKNOWN) - ENDOCRINE/METABOLIC Hx Endocrine Disorders: (UNKNOWN) - HEMATOLOGICAL/ONCOLOGICAL Hx Blood Disorders: (UNKNOWN) Hx Anemia: Yes (04-01-18) Other/Comment: SEPSIS 04-01-18 - INTEGUMENTARY Other/Comment: BLLE sores. Discoloration to Abd area. Umbilical hernia - MUSCULOSKELETAL/RHEUMATOLOGICAL Hx Musculoskeletal Disorders: (UNKNOWN) Hx Falls: Yes - GASTROINTESTINAL Hx Gastrointestinal Disorders: Yes (NON REDUCIBLE UMBILICAL HERNIA) - GENITOURINARY/GYNECOLOGICAL Hx Genitourinary Disorders: (UNKNOWN) - PSYCHIATRIC Hx Substance Use: No - SURGICAL HISTORY Hx Surgeries: No - ANESTHESIA Hx Anesthesia: No Hx Anesthesia Reactions: No Meds Allergies/Adverse Reactions: Allergies Allergy/AdvReac Type Severity Reaction Status Date / Time No Known Allergies Allergy Verified 04/01/18 17:21 - Medications Medications: Current Medications Albuterol/Ipratropium (Duoneb 3 Mg/0.5 Mg (3 Ml) Ud) 3 ml INH RQ6 PRN PRN Reason: Shortness of Breath Last Admin: 04/10/18 08:30 Dose: 3 ml Ascorbic Acid (Vitamin C 500 Mg Tab) 500 mg PO BID [facility] Last Admin: 04/10/18 09:45 Dose: 500 mg Calcium Acetate (Phoslo) 1,334 mg PO TIDCC [facility] Last Admin: 04/10/18 12:50 Dose: 1,334 mg Ergocalciferol (Drisdol 50,000 Intl Units Cap) 1 cap PO Q7D [facility] Last Admin: 04/04/18 12:11 Dose: 1 cap Heparin Sodium (Porcine) (Heparin) 5,000 units SC Q12 [facility] Last Admin: 04/10/18 09:47 Dose: 5,000 units Doxycycline Hyclate 100 mg/ (Sodium Chloride) 100 mls @ 100 mls/hr IVPB Q12H [facility] PRN Reason: Protocol Last Admin: 04/10/18 01:00 Dose: 100 mls/hr Ampicillin 2 gm/ Sodium (Chloride) 100 mls @ 200 mls/hr IVPB Q8H [facility] PRN Reason: Protocol Last Admin: 04/10/18 12:00 Dose: Not Given Meropenem 500 mg/ Sodium (Chloride) 100 mls @ 100 mls/hr IVPB Q12H [facility] PRN Reason: Protocol Stop: 04/14/18 23:31 Last Admin: 04/10/18 13:58 Dose: 100 mls/hr Norepinephrine Bitartrate 4 mg (/ Sodium Chloride) 254 mls @ 15.24 mls/hr IV .[id number] PRN; Protocol; 4 MCG/MIN PRN Reason: TITRATE PER MD ORDER Last Titration: 04/10/18 14:02 Dose: 12 mcg/min, 45.72 mls/hr Multivitamins/Vitamin C (Multi-Delyn Liquid) 5 ml PO DAILY [facility] Last Admin: 04/10/18 09:45 Dose: 5 ml Pantoprazole Sodium (Protonix Inj) 40 mg IVP DAILY [facility] Last Admin: 04/10/18 09:45 Dose: 40 mg Silver Sulfadiazine (Silvadene 1%) 0 ea TOP DAILY [facility] Last Admin: 04/10/18 09:48 Dose: 1 applic Silver Sulfadiazine (Silvadene 1%) 0 ea TOP Q12H [facility] Physical Exam - Constitutional Appears: Chronically Ill - Head Exam Head Exam: NORMOCEPHALIC - ENT Exam ENT Exam: Mucous Membranes Dry - Neck Exam Neck exam: Positive for: Tenderness - Respiratory Exam Respiratory Exam: Decreased Breath Sounds - GI/Abdominal Exam GI & Abdominal Exam: Hypoactive Bowel Sounds - Rectal Exam Rectal Exam: Deferred - Extremities Exam Extremities exam: Positive for: tenderness - Neurological Exam Neurological exam: Altered - Skin Skin Exam: Erythema Results - Vital Signs Recent Vital Signs: Last Vital Signs Temp 97.8 F 04/10/18 12:45 Pulse 108 H 04/10/18 14:07 Resp 29 H 04/10/18 14:07 BP 103/62 04/10/18 14:07 Pulse Ox 91 L 04/10/18 14:07 - Labs Result Diagrams: 04/10/18 06:55 04/10/18 06:55 Labs: Laboratory Results - last 24 hr 04/03/18 04/06/18 04/09/18 18:23 12:12 06:35 WBC RBC Hgb Hct MCV MCH MCHC RDW Plt Count MPV Neut % (Auto) Lymph % (Auto) [place] % (Auto) Eos % (Auto) Baso % (Auto) Neut # (Auto) Lymph # (Auto) [place] # (Auto) Eos # (Auto) Baso # (Auto) Neutrophils % (Manual) Band Neutrophils % Lymphocytes % (Manual) Reactive Lymphs % Monocytes % (Manual) Basophils % (Manual) Toxic Granulation Platelet Estimate Large Platelets Polychromasia Hypochromasia (manual) Anisocytosis (manual) Puncture Site pCO2 pO2 HCO3 ABG pH ABG Total CO2 ABG O2 Saturation ABG Base Excess Jann Test ABG Potassium Glucose Lactate Liter Flow Blood Gas Comments Crit Value Called To Crit Value Called By Crit Value Read Back Blood Gas Notified Time Sodium Potassium Chloride Carbon Dioxide Anion Gap BUN Creatinine Est GFR ( Amer) Est GFR (Non-Af Amer) POC Glucose (mg/dL) Random Glucose Calcium Phosphorus Magnesium Total Bilirubin AST ALT Alkaline Phosphatase Total Protein Albumin Globulin Albumin/Globulin Ratio Arterial Blood Potassium MAYI 6 Profile Positive H MAYI Titer 1:40 H MAYI Pattern Speckled H Striated Muscle Ab TNP Myocardial Ab Titer TNP Anti-Myocardial Ab Negative Reticulin Ab Titer TNP Reticulin IgA Antibody Negative HIV 1&2 Antibody Screen Negative 04/09/18 04/09/18 04/10/18 17:49 23:51 06:55 WBC 27.2 H RBC 3.32 L Hgb 9.3 L Hct 27.5 L MCV 83.0 MCH 28.1 MCHC 33.8 RDW 18.1 H Plt Count 162 MPV 9.6 Neut % (Auto) 92.2 H Lymph % (Auto) 4.1 L [place] % (Auto) 3.4 Eos % (Auto) 0.2 Baso % (Auto) 0.1 Neut # (Auto) 25.0 H Lymph # (Auto) 1.1 [place] # (Auto) 0.9 H Eos # (Auto) 0.1 Baso # (Auto) 0.0 Neutrophils % (Manual) 85 H Band Neutrophils % 3 H Lymphocytes % (Manual) 6 L Reactive Lymphs % 1 H Monocytes % (Manual) 4 Basophils % (Manual) 1 Toxic Granulation Present Platelet Estimate Normal Large Platelets Present Polychromasia Slight Hypochromasia (manual) Slight Anisocytosis (manual) Moderate Puncture Site pCO2 pO2 HCO3 ABG pH ABG Total CO2 ABG O2 Saturation ABG Base Excess Jann Test ABG Potassium Glucose Lactate Liter Flow Blood Gas Comments Crit Value Called To Crit Value Called By Crit Value Read Back Blood Gas Notified Time Sodium Potassium Chloride Carbon Dioxide Anion Gap BUN Creatinine Est GFR ( Amer) Est GFR (Non-Af Amer) POC Glucose (mg/dL) 94 103 Random Glucose Calcium Phosphorus Magnesium Total Bilirubin AST ALT Alkaline Phosphatase Total Protein Albumin Globulin Albumin/Globulin Ratio Arterial Blood Potassium MAYI 6 Profile MAYI Titer MAYI Pattern Striated Muscle Ab Myocardial Ab Titer Anti-Myocardial Ab Reticulin Ab Titer Reticulin IgA Antibody HIV 1&2 Antibody Screen 04/10/18 04/10/18 06:55 07:05 WBC RBC Hgb Hct MCV MCH MCHC RDW Plt Count MPV Neut % (Auto) Lymph % (Auto) [place] % (Auto) Eos % (Auto) Baso % (Auto) Neut # (Auto) Lymph # (Auto) [place] # (Auto) Eos # (Auto) Baso # (Auto) Neutrophils % (Manual) Band Neutrophils % Lymphocytes % (Manual) Reactive Lymphs % Monocytes % (Manual) Basophils % (Manual) Toxic Granulation Platelet Estimate Large Platelets Polychromasia Hypochromasia (manual) Anisocytosis (manual) Puncture Site Lb pCO2 35 pO2 23 L* HCO3 18.1 L ABG pH 7.33 L ABG Total CO2 19.6 L ABG O2 Saturation 41.5 L ABG Base Excess -6.6 L Jann Test Na ABG Potassium 3.9 Glucose 84 Lactate 2.0 Liter Flow 4.0 Blood Gas Comments Pos venous pt bp low Crit Value Called To Dr lomeli Crit Value Called By Kade hendricksp Crit Value Read Back Y Blood Gas Notified Time 715 Sodium 139 137.0 Potassium 4.0 Chloride 102 105.0 Carbon Dioxide 19 L Anion Gap 22 H BUN 66 H Creatinine 2.8 H Est GFR ( Amer) 21 Est GFR (Non-Af Amer) 18 POC Glucose (mg/dL) Random Glucose 61 L Calcium 8.4 L Phosphorus 5.9 H Magnesium 2.2 Total Bilirubin 1.2 AST 25 ALT 31 Alkaline Phosphatase 163 H Total Protein 5.4 L Albumin 2.6 L D Globulin 2.8 Albumin/Globulin Ratio 0.9 L Arterial Blood Potassium 3.9 MAYI 6 Profile MAYI Titer MAYI Pattern Striated Muscle Ab Myocardial Ab Titer Anti-Myocardial Ab Reticulin Ab Titer Reticulin IgA Antibody HIV 1&2 Antibody Screen Assessment & Plan (1) Acute respiratory failure Status: Acute (2) Listeria septicemia Status: Acute (3) Thrombocytopenia Status: Acute (4) Altered mental status Status: Acute (5) Anemia Status: Acute
--- NOTE | 2018-04-10 18:02 | US ---
HISTORY: Hydronephrosis and Ascites. COMPARISON: 04/03/2018 renal ultrasound. 04/02/2018 CT abdomen and pelvis. TECHNIQUE: Sonographic evaluation of the abdomen. FINDINGS: LIVER: Measures 17.8 cm. Hepatopedal blood flow. Fatty infiltration manifest ultrasonographically as increased echogenicity of the liver parenchyma. No mass. No intrahepatic bile duct dilatation. GALLBLADDER: Gallstones and sludge. No gallbladder wall edema or sonographic Rocha's sign. COMMON BILE DUCT: Measures 4.7 mm. No stones. No dilatation. PANCREAS: Obscured by overlying bowel gas. Non diagnostic assessment of pancreas RIGHT KIDNEY: Measures 4.3 x 11.4cm. Hydronephrosis similar to that seen on the prior study calculus disease identified on the prior study is not visualize currently. LEFT KIDNEY: Measures 3.8 x 7.6cm. Hydronephrosis to similar degree seen on the prior study SPLEEN: Normal in size and contour. No mass. AORTA: No aneurysmal dilatation. IVC: Unremarkable. OTHER FINDINGS: Incompletely visualized intra-abdominal ascites. IMPRESSION: Mild and bilaterally symmetrical hydronephrosis unchanged compared to the prior study. Cholelithiasis/ sludge without sonographic Rocha sign. Low volume ascites. Overall no significant change compared to the prior study.
--- NOTE | 2018-04-10 18:33 | CP.PCM.PN ---
Subjective - Date & Time of Evaluation Date of Evaluation: 04/10/18 Time of Evaluation: 04:35 - Subjective Subjective: dictated Objective - Vital Signs/Intake and Output Vital Signs (last 24 hours): Temp Pulse Resp BP Pulse Ox 98.4 F 114 H 24 98/62 L 100 04/10/18 16:00 04/10/18 18:07 04/10/18 18:07 04/10/18 18:07 04/10/18 18:07 Intake and Output: 04/10/18 04/10/18 06:59 18:59 Intake Total 745 1389.0 Output Total 500 Balance 745 889.0 - Medications Medications: Current Medications Albuterol/Ipratropium (Duoneb 3 Mg/0.5 Mg (3 Ml) Ud) 3 ml INH RQ6 PRN PRN Reason: Shortness of Breath Last Admin: 04/10/18 14:28 Dose: 3 ml Ascorbic Acid (Vitamin C 500 Mg Tab) 500 mg PO BID [facility] Last Admin: 04/10/18 17:07 Dose: 500 mg Calcium Acetate (Phoslo) 1,334 mg PO TIDCC [facility] Last Admin: 04/10/18 17:06 Dose: 1,334 mg Ergocalciferol (Drisdol 50,000 Intl Units Cap) 1 cap PO Q7D [facility] Last Admin: 04/04/18 12:11 Dose: 1 cap Heparin Sodium (Porcine) (Heparin) 5,000 units SC Q12 [facility] Last Admin: 04/10/18 09:47 Dose: 5,000 units Ampicillin 2 gm/ Sodium (Chloride) 100 mls @ 200 mls/hr IVPB Q8H [facility] PRN Reason: Protocol Last Admin: 04/10/18 14:24 Dose: 200 mls/hr Meropenem 500 mg/ Sodium (Chloride) 100 mls @ 100 mls/hr IVPB Q12H [facility] PRN Reason: Protocol Stop: 04/14/18 23:31 Last Admin: 04/10/18 13:58 Dose: 100 mls/hr Norepinephrine Bitartrate 4 mg (/ Sodium Chloride) 254 mls @ 15.24 mls/hr IV .[id number] PRN; Protocol; 4 MCG/MIN PRN Reason: TITRATE PER MD ORDER Last Admin: 04/10/18 14:30 Dose: 12 mcg/min, 45.72 mls/hr Multivitamins/Vitamin C (Multi-Delyn Liquid) 5 ml PO DAILY [facility] Last Admin: 04/10/18 09:45 Dose: 5 ml Pantoprazole Sodium (Protonix Inj) 40 mg IVP DAILY [facility] Last Admin: 04/10/18 09:45 Dose: 40 mg Silver Sulfadiazine (Silvadene 1%) 0 ea TOP DAILY [facility] Last Admin: 04/10/18 09:48 Dose: 1 applic Silver Sulfadiazine (Silvadene 1%) 0 ea TOP Q12H [facility] Last Admin: 04/10/18 10:00 Dose: 1 applic - Labs Labs: 04/10/18 06:55 04/10/18 06:55 PT 11.2 SECONDS (9.7-12.2) 04/05/18 06:15 INR 1.0 04/05/18 06:15 APTT 29 SECONDS (21-34) 04/05/18 06:15
[2018-04-10] MEDS ORDERED: Vitamin A/D oint 60G TP PRN (20:33)
--- NOTE | 2018-04-10 23:59 | PN ---
DATE: 04/10/2018 LOCATION: ICU 6. SUBJECTIVE: This 52-year-old female is seen and examined in rounds, without reported significant medical changes, appears to be somewhat lethargic with periods of semi mild disorientation and semi-confusion at times, reported to have hypotension and has been on Levophed IV infusion. The entire chart is reviewed including but not limited to the most recent lab and radiology study results, current and previous medication lists, current and previous medical events with reported mild abdominal distention, removed by NG tube, but no reported active bleeding. The patient is still on hemodialysis. No reported actual palpitations, chest pain, or significant shortness of breath. Today's ultrasound of the abdomen was done indicative of symmetrical hydronephrosis with cholelithiasis and sludge without any cholecystitis with low volume ascites. Today's chest x-ray official report is seen indicative of new right-sided infiltrate and atelectasis. PHYSICAL EXAMINATION: GENERAL: A 52-year-old female. VITAL SIGNS: Afebrile with pulse of 108, respiratory rate 20 to 22, blood pressure 100/58. HEENT: Showed pale right oral mucous membrane, nonicteric sclerae. LUNGS: Scattered crepitation. Decreased air entry at bases. HEART: S1 and S2. ABDOMEN: Soft. Bowel sounds are present, but hypoactive with abdominal distention, small amount of ascites. No mass or organomegaly. No rebound tenderness or guarding. EXTREMITIES: With lower extremities edematous changes with superficial ulcerations and edematous changes. No clubbing or cyanosis. NEUROLOGIC: No reported new neurological deficit, sensory or motor. No reported new focal deficits. LABORATORY DATA: Today's lab showed leukocytosis of 27.2, hemoglobin 9.3, hematocrit 27.5 with normal platelet count and normal ABGs, blood glucose level 114 with low CO2 content of 19 indicative of metabolic acidosis, BUN is 66, creatinine 2.8 and calcium 8.4. Phosphorus 5.9 with albumin 2.6. IMPRESSION: 1. Anemia, most likely secondary to chronic disease versus most likely gastrointestinal blood loss. 2. Change of mental status. 3. Rhabdomyolysis. 4. Renal failure, on hemodialysis. 5. Electrolyte imbalance. 6. Listeria septicemia, on antibiotics. 7. Recent history of acute respiratory failure with pneumonia. SUGGESTIONS: 1. Continue current management. 2. Adjust oral intake. 3. Antireflux measures. 4. Further recommendations to follow. Salinas Miles MD [facility] # [phone]
[2018-04-11] MEDS: Silver Sulfadiazine 1% Cream (400 gm) TOP SCH ×4 (00:08→21:59)
[2018-04-11] MEDS: Meropenem 500 MG in Sodium Chloride 0.9% 100 ML IVPB SCH ×3 (00:13→23:32)
[2018-04-11] MEDS: Vitamins A & D Oint UD Foilpak TOP PRN ×2 (00:14→22:26)
--- NOTE | 2018-04-11 00:19 | PN ---
DATE: __04/10/2018___ SUBJECTIVE: The patient is now with an NG tube. She was seen by Dr. Platt, and she is getting dressings on both lower extremities as well as she has this weeping from the blistering skin which is present in the legs, and she has ecchymosis in the upper extremities, however, she is awake, cachectic looking, and her MAYI was weakly positive 1:40. I did not find any report or any culture positive for Vibrio. I have been giving her doxycycline right now. Her voice is still not back in spite of being extubated three days ago. PHYSICAL EXAMINATION: VITAL SIGNS: T-max is 98.4, heart rate 121, respirations are 26, blood pressure remains 98/65. HEENT: Head is atraumatic, normocephalic. NECK: Supple. LUNGS: Clear. HEART: S1, S2. Tachycardiac. ABDOMEN: Has umbilical hernia. EXTREMITIES: Remain with these blistering. SKIN: With ecchymosis. She was seen by Dr. Platt today. We will await to see what he has to say, but at this time, I would discontinue doxycycline. She almost got for 10 days. Her wound culture was Staphylococcus aureus, which is probably secondary now, and it is oxacillin sensitive so meropenem should be adequate and to continue ampicillin to treat Listeria septicemia, which probably once the white count comes down, we can probably switch it to oral, but she should be treated for three weeks with ampicillin and the main problem remains with the ulceration in her lower extremities being reinfected and will take a long time to get normalized, and she still remains with renal failure. Creatinine is 2.8 and is still tachycardiac, unable to eat, lot of issues are there otherwise, but I think doxycycline is worsening her throat and esophagus. At this time, she has Listeria blood infection along with Staphylococcus aureus wound infection, and probably had toxic dermal epididymal, it seems like now, and hopefully, she will recover. Festus Camarena MD [facility]
[2018-04-11] MEDS: AMPicillin 2 GM in Sodium Chloride 100 ML IVPB SCH ×3 (04:17→19:37)
[2018-04-11 06:40] LABS: BASO % 0.1 % (0.0-2.0); EOS # 0.1 K/uL (0.0-0.7); EOS % 0.2 % (0.0-4.0); HEMOGLOBIN 8.5 g/dL (11.0-16.0); LYMPH # 1.4 K/uL (1.0-4.3); LYMPH % 5.2 % (20.0-40.0); MEAN CELL VOLUME 83.4 fL (81.0-99.0); MEAN CORPUSCULAR HEMOGLOBIN 27.8 pg (27.0-31.0); MEAN CORPUSCULAR HGB CONC 33.3 g/dL (33.0-37.0); MONO # 1.1 K/uL (0.0-0.8); MONO % 4.1 % (0.0-10.0); NEUT # 25.2 K/uL (1.8-7.0); NEUT % 90.4 % (50.0-75.0); PLATELET COUNT 178 K/uL (130-400); RBC 3.07 Mil/uL (3.80-5.20); RED CELL DISTRIBUTION WIDTH 17.8 % (11.5-14.5); WHITE BLOOD COUNT 27.9 K/uL (4.8-10.8)
[2018-04-11 06:53] LABS: ALBUMIN 2.5 g/dL (3.5-5.0); CALCIUM 8.2 mg/dl (8.6-10.4)
[2018-04-11 08:24] LABS: ANISOCYTOSIS SLIGHT; HYPOCHROMIC SLIGHT; LYMPHOCYTE 6 % (20-40); MONOCYTE 5 % (0-10); NEUTROPHIL 89 % (50-75); PLATELET ESTIMATE NORMAL (NORMAL); TOTAL CELLS COUNTED 100
[2018-04-11 08:25] LABS: POLYCHROMIC SLIGHT
--- NOTE | 2018-04-11 08:43 | RAD ---
PROCEDURE: CHEST RADIOGRAPH, 1 VIEW HISTORY: new onset cough COMPARISON: 04/10/2018 FINDINGS: LUNGS: Clear. PLEURA: Mild elevation right hemidiaphragm, nonspecific and unchanged.Slight blunting both costophrenic angles may reflect small pleural effusions or chronic pleural thickening. CARDIOVASCULAR: Normal heart size. Left IJ central venous multi lumen catheter, NG tube and right tunneled central venous dialysis catheter are all unchanged. OSSEOUS STRUCTURES: No significant abnormalities. VISUALIZED UPPER ABDOMEN: Normal. OTHER FINDINGS: None. IMPRESSION: Possible very small bilateral pleural effusion.
--- NOTE | 2018-04-11 09:18 | CP.PCM.PN ---
Subjective - Date & Time of Evaluation Date of Evaluation: 04/10/18 Time of Evaluation: 19:00 - Subjective Subjective: Pt seen and examine at bedside Objective - Vital Signs/Intake and Output Vital Signs (last 24 hours): Temp Pulse Resp BP Pulse Ox 98.8 F 123 H 25 H 82/43 L 97 04/11/18 08:00 04/11/18 09:10 04/11/18 09:10 04/11/18 09:10 04/11/18 09:10 Intake and Output: 04/11/18 04/11/18 06:59 18:59 Intake Total 1443.5 185.0 Output Total 750 10 Balance 693.5 175.0 - Medications Medications: Current Medications Albuterol/Ipratropium (Duoneb 3 Mg/0.5 Mg (3 Ml) Ud) 3 ml INH RQ6 PRN PRN Reason: Shortness of Breath Last Admin: 04/10/18 14:28 Dose: 3 ml Ascorbic Acid (Vitamin C 500 Mg Tab) 500 mg PO BID [facility] Last Admin: 04/10/18 17:07 Dose: 500 mg Calcium Acetate (Phoslo) 1,334 mg PO TIDCC [facility] Last Admin: 04/11/18 08:03 Dose: 1,334 mg Ergocalciferol (Drisdol 50,000 Intl Units Cap) 1 cap PO Q7D [facility] Last Admin: 04/04/18 12:11 Dose: 1 cap Heparin Sodium (Porcine) (Heparin) 5,000 units SC Q12 [facility] Last Admin: 04/10/18 22:01 Dose: 5,000 units Ampicillin 2 gm/ Sodium (Chloride) 100 mls @ 200 mls/hr IVPB Q8H [facility] PRN Reason: Protocol Last Admin: 04/11/18 04:17 Dose: 200 mls/hr Meropenem 500 mg/ Sodium (Chloride) 100 mls @ 100 mls/hr IVPB Q12H [facility] PRN Reason: Protocol Stop: 04/14/18 23:31 Last Admin: 04/11/18 00:13 Dose: 100 mls/hr Norepinephrine Bitartrate 4 mg (/ Sodium Chloride) 254 mls @ 15.24 mls/hr IV .[id number] PRN; Protocol; 4 MCG/MIN PRN Reason: TITRATE PER MD ORDER Last Titration: 04/11/18 05:25 Dose: 9 mcg/min, 34.29 mls/hr Multivitamins/Vitamin C (Multi-Delyn Liquid) 5 ml PO DAILY [facility] Last Admin: 04/10/18 09:45 Dose: 5 ml Pantoprazole Sodium (Protonix Inj) 40 mg IVP DAILY [facility] Last Admin: 04/10/18 09:45 Dose: 40 mg Silver Sulfadiazine (Silvadene 1%) 0 ea TOP DAILY [facility] Last Admin: 04/10/18 09:48 Dose: 1 applic Silver Sulfadiazine (Silvadene 1%) 0 ea TOP Q12 [facility] Vitamin A (Vitamin A & D Oint Ud Foilpak) 1 ea TOP Q8 PRN PRN Reason: Dry Lips Last Admin: 04/11/18 00:14 Dose: 1 ea - Labs Labs: 04/11/18 06:29 04/11/18 06:29 PT 11.2 SECONDS (9.7-12.2) 04/05/18 06:15 INR 1.0 04/05/18 06:15 APTT 29 SECONDS (21-34) 04/05/18 06:15 Assessment and Plan (1) Coagulopathy Status: Acute (2) Altered mental status Status: Acute (3) Myoglobinuria Status: Acute (4) Renal failure Status: Acute (5) Listeria septicemia Status: Acute (6) Acute tubular necrosis Status: Acute (7) Acute respiratory failure Status: Acute
[2018-04-11] MEDS: Ergocalciferol 50,000 Intl Units Cap PO SCH (10:27)
[2018-04-11] MEDS: Multiple Vitamins Oral Solution PO SCH (10:27)
--- NOTE | 2018-04-11 10:40 | PN ---
DATE: LOCATION: ICU 6. SUBJECTIVE: This is a 52-year-old female seen and examined in rounds, without significant clinical changes or reported active bleeding, had NG tube in with large amount of retained gastric contents. The entire chart is reviewed including but not limited to the most recent lab and radiology study results, current and the previous medication list, current and the previous medical events. Case discussed with the staff at length in ICU. Today's labs showed white blood cells 27.9, hemoglobin dropped to 8.5, hematocrit 25.6, with normal platelet count, BUN 42, creatinine 2.3, still on hemodialysis. Calcium 8.4, albumin 2.5, and total protein 5.1. The patient denies any significant complaint of chest pain, palpitation, but intermittent periods of shortness of breath. PHYSICAL EXAMINATION: GENERAL: A 52-year-old female. VITAL SIGNS: Afebrile with heart rate of 106, blood pressure 110/66, respiratory rate 20 to 24. HEENT: Showed pale, dry, oral mucoid membrane. Nonicteric sclerae. LUNGS: Scattered crepitation. Decreased air entry is seen at bases. HEART: Positive S1 and S2 with increased rate. ABDOMEN: Soft. Bowel sounds are present with mild distention. No mass or organomegaly. No rebound tenderness or guarding. EXTREMITIES: With superficial ulcerations, lower extremity edematous changes. No clubbing or cyanosis. NEUROLOGIC: No reported new neurological deficits, sensory or motor. No reported focal deficits. IMPRESSION: 1. Respiratory insufficiency. 2. Listeria septicemia. 3. Thrombocytopenia of unclear etiology. 4. Anemia, most likely secondary to above. 5. Change of mental status with rhabdomyolysis. 6. Pneumonia as reported by recent history. SUGGESTIONS: 1. Continue current management. 2. Follow up cancer markers. 3. Should be treated for occult blood. 4. No aggressive GI workup in the meantime, until the patient is more stable clinically. 5. Further recommendations to follow. Salinas Miles MD
--- NOTE | 2018-04-11 10:49 | CP.CCUPN ---
<Mik Huynh - Last Filed: 04/11/18 10:38> CCU Subjective - Physician Review Subjective (Free Text): Patient has been and examined. Patient extubated on 04/07. Now tolerating 02NC Patient was able to answer Review of systems with head nods. She denies any fevers, chills, or SOB. She denies any chest pain or palpitations. She denies any abdominal pain today. Patient was non-verbal during my examination but did speak to the nurse this morning. CCU Objective - Vital Signs / Intake & Output Vital Signs (Last 4 hours): Vital Signs Temp Pulse Resp BP Pulse Ox 04/11/18 09:10 123 H 25 H 82/43 L 97 04/11/18 09:00 126 H 22 100 04/11/18 08:40 120 H 24 94/51 L 100 04/11/18 08:10 119 H 23 95/54 L 97 04/11/18 08:00 98.8 F 117 H 24 97 04/11/18 07:39 123 H 24 99/61 L 100 04/11/18 07:10 123 H 24 99/59 L 100 04/11/18 07:00 123 H 24 100 04/11/18 06:40 122 H 26 H 109/63 100 Intake and Output (Last 8hrs): Intake & Output 04/10/18 04/11/18 04/11/18 22:59 06:59 14:59 Intake Total 1113.5 770.0 185.0 Output Total 500 250 10 Balance 613.5 520.0 175.0 Weight 123 lb 7.342 oz Intake: IV 321 226 Intake, IV Amount 507.5 324.0 75.0 Left Medial Port Internal 200 Jugular Left Proximal Port 307.5 324.0 75.0 Internal Jugular Tube Feeding 235 220 60 Other 50 50 Output: Gastric Amount 200 250 10 Stomach 200 250 10 Drainage 300 HD fluid removal 300 Emesis 0 Other: # Voids Urine, Voided 0 0 # Bowel Movements 0 0 - Physical Exam Head: Positive for: Atraumatic Mouth: Positive for: Moist Mucous Membranes Respiratory/Chest: Positive for: Good Air Exchange. Negative for: Respiratory Distress, Accessory Muscle Use Cardiovascular: Positive for: Normal S1, S2, Gallop Abdomen: Positive for: Distention, Other (abdomen reveals a 5 cm circular bulb no Bowel sounds in bulb). Negative for: Tenderness, Rebound, Guarding Upper Extremity: Positive for: Edema. Negative for: Cyanosis Lower Extremity: Positive for: Edema, Other (non-blanching ecchymotic lesions covering more than 25 percent of lower extremity and abdomen. S/P debridement with Dressing b/L. ) Neurological: Positive for: GCS=15 (15) Psychiatric: Positive for: Alert, Oriented x 3 - Medications Active Medications: Active Medications Generic Name Dose Route Start Last Admin Trade Name Freq PRN Reason Stop Dose Admin Albuterol/Ipratropium 3 ml 04/03/18 09:30 04/10/18 14:28 Duoneb 3 Mg/0.5 Mg (3 Ml) Ud INH 3 ml RQ6 PRN Administration Shortness of Breath Ascorbic Acid 500 mg 04/02/18 10:00 04/11/18 10:27 Vitamin C 500 Mg Tab PO 500 mg BID NOLAN Administration Calcium Acetate 1,334 mg 04/05/18 09:32 04/11/18 08:03 Phoslo PO 1,334 mg TIDCC NOLAN Administration Ergocalciferol 1 cap 04/04/18 10:45 04/11/18 10:27 Drisdol 50,000 Intl Units Cap PO 1 cap Q7D NOLAN Administration Heparin Sodium (Porcine) 5,000 units 04/02/18 22:00 04/11/18 10:26 Heparin SC 5,000 units Q12 NOLAN Administration Ampicillin 2 gm/ Sodium 100 mls @ 200 mls/hr 04/06/18 12:00 04/11/18 04:17 Chloride IVPB 200 mls/hr Q8H NOLAN Administration Protocol Meropenem 500 mg/ Sodium 100 mls @ 100 mls/hr 04/07/18 23:30 04/11/18 10:30 Chloride IVPB 04/14/18 23:31 100 mls/hr Q12H NOLAN Administration Protocol Norepinephrine Bitartrate 4 mg 254 mls @ 15.24 mls/hr 04/10/18 07:15 05:25 / Sodium Chloride IV 9 mcg/min .[id number] PRN 34.29 mls/hr TITRATE PER MD ORDER Titration Protocol 4 MCG/MIN Chromium/Copper/Manganese/Zinc 1,012 mls @ 42 mls/hr 04/11/18 18:00 1 ml/ Multivitamins/Vitamin C IV 04/12/18 17:59 10 ml/ Heparin Sodium ( .Q24H ONE Porcine) 1,000 units/ Amino Acids/Electrolytes/Dextrose Multivitamins/Vitamin C 5 ml 04/03/18 10:15 04/11/18 10:27 Multi-Delyn Liquid PO 5 ml DAILY NOLAN Administration Pantoprazole Sodium 40 mg 04/02/18 10:00 04/11/18 10:26 Protonix Inj IVP 40 mg DAILY NOLAN Administration Silver Sulfadiazine 0 ea 04/08/18 10:00 04/11/18 10:29 Silvadene 1% TOP 1 applic DAILY NOLAN Administration Silver Sulfadiazine 0 ea 04/11/18 10:00 04/11/18 10:28 Silvadene 1% TOP 1 applic Q12 NOLAN Administration Vitamin A 1 ea 04/10/18 23:00 04/11/18 00:14 Vitamin A & D Oint Ud Foilpak TOP 1 ea Q8 PRN Administration Dry Lips - Patient Studies Lab Studies: Lab Studies 04/11/18 04/11/18 04/11/18 Range/Units 06:29 06:29 06:05 WBC 27.9 H (4.8-10.8) K/uL RBC 3.07 L (3.80-5.20) Mil/uL Hgb 8.5 L (11.0-16.0) g/dL Hct 25.6 L (34.0-47.0) % MCV 83.4 (81.0-99.0) fL MCH 27.8 (27.0-31.0) pg MCHC 33.3 (33.0-37.0) g/dL RDW 17.8 H (11.5-14.5) % Plt Count 178 (130-400) K/uL MPV 9.0 (7.2-11.7) fL Neut % (Auto) 90.4 H (50.0-75.0) % Lymph % (Auto) 5.2 L (20.0-40.0) % [place] % (Auto) 4.1 (0.0-10.0) % Eos % (Auto) 0.2 (0.0-4.0) % Baso % (Auto) 0.1 (0.0-2.0) % Neut # (Auto) 25.2 H (1.8-7.0) K/uL Lymph # (Auto) 1.4 (1.0-4.3) K/uL [place] # (Auto) 1.1 H (0.0-0.8) K/uL Eos # (Auto) 0.1 (0.0-0.7) K/uL Baso # (Auto) 0.0 (0.0-0.2) K/uL Neutrophils % (Manual) 89 H (50-75) % Lymphocytes % (Manual) 6 L (20-40) % Monocytes % (Manual) 5 (0-10) % Platelet Estimate Normal (NORMAL) Polychromasia Slight Hypochromasia (manual) Slight Anisocytosis (manual) Slight Sodium 139 (132-148) mmol/L Potassium 3.8 (3.6-5.2) mmol/L Chloride 102 (98-107) mmol/L Carbon Dioxide 23 (22-30) mmol/L Anion Gap 18 (10-20) BUN 42 H (7-17) mg/dL Creatinine 2.3 H (0.7-1.2) mg/dL Est GFR ( Amer) 27 Est GFR (Non-Af Amer) 22 POC Glucose (mg/dL) 86 (65-110) mg/dL Random Glucose 89 (65-105) mg/dL Calcium 8.2 L (8.6-10.4) mg/dl Total Bilirubin 0.9 (0.2-1.3) mg/dL AST 21 (14-36) U/L ALT 32 (9-52) U/L Alkaline Phosphatase 146 H (38-126) U/L Total Protein 5.1 L (6.3-8.3) g/dL Albumin 2.5 L (3.5-5.0) g/dL Globulin 2.6 (2.2-3.9) gm/dL Albumin/Globulin Ratio 1.0 (1.0-2.1) Vitamin B12 457 (239-931) pg/mL Rheumatoid Factor IgG (<=6) U Rheumatoid Factor IgA (<=6) U Rheumatoid Factor IgM (<=6) U MAYI 6 Profile (NEGATIVE) MAYI Titer MAYI Pattern ANCA Screen (NEGATIVE) c-ANCA Titer p-ANCA Titer Atypical p-ANCA Titer Anti-ds DNA Titer (Crith) Anti-ds DNA (Crithidia) (NEGATIVE) 04/10/18 04/10/18 04/10/18 Range/Units 23:24 17:32 11:54 WBC (4.8-10.8) K/uL RBC (3.80-5.20) Mil/uL Hgb (11.0-16.0) g/dL Hct (34.0-47.0) % MCV (81.0-99.0) fL MCH (27.0-31.0) pg MCHC (33.0-37.0) g/dL RDW (11.5-14.5) % Plt Count (130-400) K/uL MPV (7.2-11.7) fL Neut % (Auto) (50.0-75.0) % Lymph % (Auto) (20.0-40.0) % [place] % (Auto) (0.0-10.0) % Eos % (Auto) (0.0-4.0) % Baso % (Auto) (0.0-2.0) % Neut # (Auto) (1.8-7.0) K/uL Lymph # (Auto) (1.0-4.3) K/uL [place] # (Auto) (0.0-0.8) K/uL Eos # (Auto) (0.0-0.7) K/uL Baso # (Auto) (0.0-0.2) K/uL Neutrophils % (Manual) (50-75) % Lymphocytes % (Manual) (20-40) % Monocytes % (Manual) (0-10) % Platelet Estimate (NORMAL) Polychromasia Hypochromasia (manual) Anisocytosis (manual) Sodium (132-148) mmol/L Potassium (3.6-5.2) mmol/L Chloride (98-107) mmol/L Carbon Dioxide (22-30) mmol/L Anion Gap (10-20) BUN (7-17) mg/dL Creatinine (0.7-1.2) mg/dL Est GFR ( Amer) Est GFR (Non-Af Amer) POC Glucose (mg/dL) 116 H 114 H 100 (65-110) mg/dL Random Glucose (65-105) mg/dL Calcium (8.6-10.4) mg/dl Total Bilirubin (0.2-1.3) mg/dL AST (14-36) U/L ALT (9-52) U/L Alkaline Phosphatase (38-126) U/L Total Protein (6.3-8.3) g/dL Albumin (3.5-5.0) g/dL Globulin (2.2-3.9) gm/dL Albumin/Globulin Ratio (1.0-2.1) Vitamin B12 (239-931) pg/mL Rheumatoid Factor IgG (<=6) U Rheumatoid Factor IgA (<=6) U Rheumatoid Factor IgM (<=6) U MAYI 6 Profile (NEGATIVE) MAYI Titer MAYI Pattern ANCA Screen (NEGATIVE) c-ANCA Titer p-ANCA Titer Atypical p-ANCA Titer Anti-ds DNA Titer (Crith) Anti-ds DNA (Crithidia) (NEGATIVE) 04/10/18 04/10/18 04/09/18 Range/Units 09:32 05:19 23:51 WBC (4.8-10.8) K/uL RBC (3.80-5.20) Mil/uL Hgb (11.0-16.0) g/dL Hct (34.0-47.0) % MCV (81.0-99.0) fL MCH (27.0-31.0) pg MCHC (33.0-37.0) g/dL RDW (11.5-14.5) % Plt Count (130-400) K/uL MPV (7.2-11.7) fL Neut % (Auto) (50.0-75.0) % Lymph % (Auto) (20.0-40.0) % [place] % (Auto) (0.0-10.0) % Eos % (Auto) (0.0-4.0) % Baso % (Auto) (0.0-2.0) % Neut # (Auto) (1.8-7.0) K/uL Lymph # (Auto) (1.0-4.3) K/uL [place] # (Auto) (0.0-0.8) K/uL Eos # (Auto) (0.0-0.7) K/uL Baso # (Auto) (0.0-0.2) K/uL Neutrophils % (Manual) (50-75) % Lymphocytes % (Manual) (20-40) % Monocytes % (Manual) (0-10) % Platelet Estimate (NORMAL) Polychromasia Hypochromasia (manual) Anisocytosis (manual) Sodium (132-148) mmol/L Potassium (3.6-5.2) mmol/L Chloride (98-107) mmol/L Carbon Dioxide (22-30) mmol/L Anion Gap (10-20) BUN (7-17) mg/dL Creatinine (0.7-1.2) mg/dL Est GFR ( Amer) Est GFR (Non-Af Amer) POC Glucose (mg/dL) 107 107 103 (65-110) mg/dL Random Glucose (65-105) mg/dL Calcium (8.6-10.4) mg/dl Total Bilirubin (0.2-1.3) mg/dL AST (14-36) U/L ALT (9-52) U/L Alkaline Phosphatase (38-126) U/L Total Protein (6.3-8.3) g/dL Albumin (3.5-5.0) g/dL Globulin (2.2-3.9) gm/dL Albumin/Globulin Ratio (1.0-2.1) Vitamin B12 (239-931) pg/mL Rheumatoid Factor IgG (<=6) U Rheumatoid Factor IgA (<=6) U Rheumatoid Factor IgM (<=6) U MAYI 6 Profile (NEGATIVE) MAYI Titer MAYI Pattern ANCA Screen (NEGATIVE) c-ANCA Titer p-ANCA Titer Atypical p-ANCA Titer Anti-ds DNA Titer (Crith) Anti-ds DNA (Crithidia) (NEGATIVE) 04/09/18 04/09/18 04/09/18 Range/Units 17:49 11:51 05:15 WBC (4.8-10.8) K/uL RBC (3.80-5.20) Mil/uL Hgb (11.0-16.0) g/dL Hct (34.0-47.0) % MCV (81.0-99.0) fL MCH (27.0-31.0) pg MCHC (33.0-37.0) g/dL RDW (11.5-14.5) % Plt Count (130-400) K/uL MPV (7.2-11.7) fL Neut % (Auto) (50.0-75.0) % Lymph % (Auto) (20.0-40.0) % [place] % (Auto) (0.0-10.0) % Eos % (Auto) (0.0-4.0) % Baso % (Auto) (0.0-2.0) % Neut # (Auto) (1.8-7.0) K/uL Lymph # (Auto) (1.0-4.3) K/uL [place] # (Auto) (0.0-0.8) K/uL Eos # (Auto) (0.0-0.7) K/uL Baso # (Auto) (0.0-0.2) K/uL Neutrophils % (Manual) (50-75) % Lymphocytes % (Manual) (20-40) % Monocytes % (Manual) (0-10) % Platelet Estimate (NORMAL) Polychromasia Hypochromasia (manual) Anisocytosis (manual) Sodium (132-148) mmol/L Potassium (3.6-5.2) mmol/L Chloride (98-107) mmol/L Carbon Dioxide (22-30) mmol/L Anion Gap (10-20) BUN (7-17) mg/dL Creatinine (0.7-1.2) mg/dL Est GFR ( Amer) Est GFR (Non-Af Amer) POC Glucose (mg/dL) 94 88 72 (65-110) mg/dL Random Glucose (65-105) mg/dL Calcium (8.6-10.4) mg/dl Total Bilirubin (0.2-1.3) mg/dL AST (14-36) U/L ALT (9-52) U/L Alkaline Phosphatase (38-126) U/L Total Protein (6.3-8.3) g/dL Albumin (3.5-5.0) g/dL Globulin (2.2-3.9) gm/dL Albumin/Globulin Ratio (1.0-2.1) Vitamin B12 (239-931) pg/mL Rheumatoid Factor IgG (<=6) U Rheumatoid Factor IgA (<=6) U Rheumatoid Factor IgM (<=6) U MAYI 6 Profile (NEGATIVE) MAYI Titer MAYI Pattern ANCA Screen (NEGATIVE) c-ANCA Titer p-ANCA Titer Atypical p-ANCA Titer Anti-ds DNA Titer (Crith) Anti-ds DNA (Crithidia) (NEGATIVE) 04/08/18 04/08/18 04/08/18 Range/Units 23:52 18:00 11:51 WBC (4.8-10.8) K/uL RBC (3.80-5.20) Mil/uL Hgb (11.0-16.0) g/dL Hct (34.0-47.0) % MCV (81.0-99.0) fL MCH (27.0-31.0) pg MCHC (33.0-37.0) g/dL RDW (11.5-14.5) % Plt Count (130-400) K/uL MPV (7.2-11.7) fL Neut % (Auto) (50.0-75.0) % Lymph % (Auto) (20.0-40.0) % [place] % (Auto) (0.0-10.0) % Eos % (Auto) (0.0-4.0) % Baso % (Auto) (0.0-2.0) % Neut # (Auto) (1.8-7.0) K/uL Lymph # (Auto) (1.0-4.3) K/uL [place] # (Auto) (0.0-0.8) K/uL Eos # (Auto) (0.0-0.7) K/uL Baso # (Auto) (0.0-0.2) K/uL Neutrophils % (Manual) (50-75) % Lymphocytes % (Manual) (20-40) % Monocytes % (Manual) (0-10) % Platelet Estimate (NORMAL) Polychromasia Hypochromasia (manual) Anisocytosis (manual) Sodium (132-148) mmol/L Potassium (3.6-5.2) mmol/L Chloride (98-107) mmol/L Carbon Dioxide (22-30) mmol/L Anion Gap (10-20) BUN (7-17) mg/dL Creatinine (0.7-1.2) mg/dL Est GFR ( Amer) Est GFR (Non-Af Amer) POC Glucose (mg/dL) 98 97 108 (65-110) mg/dL Random Glucose (65-105) mg/dL Calcium (8.6-10.4) mg/dl Total Bilirubin (0.2-1.3) mg/dL AST (14-36) U/L ALT (9-52) U/L Alkaline Phosphatase (38-126) U/L Total Protein (6.3-8.3) g/dL Albumin (3.5-5.0) g/dL Globulin (2.2-3.9) gm/dL Albumin/Globulin Ratio (1.0-2.1) Vitamin B12 (239-931) pg/mL Rheumatoid Factor IgG (<=6) U Rheumatoid Factor IgA (<=6) U Rheumatoid Factor IgM (<=6) U MAYI 6 Profile (NEGATIVE) MAYI Titer MAYI Pattern ANCA Screen (NEGATIVE) c-ANCA Titer p-ANCA Titer Atypical p-ANCA Titer Anti-ds DNA Titer (Crith) Anti-ds DNA (Crithidia) (NEGATIVE) 04/08/18 04/07/18 04/07/18 Range/Units 05:19 23:58 17:49 WBC (4.8-10.8) K/uL RBC (3.80-5.20) Mil/uL Hgb (11.0-16.0) g/dL Hct (34.0-47.0) % MCV (81.0-99.0) fL MCH (27.0-31.0) pg MCHC (33.0-37.0) g/dL RDW (11.5-14.5) % Plt Count (130-400) K/uL MPV (7.2-11.7) fL Neut % (Auto) (50.0-75.0) % Lymph % (Auto) (20.0-40.0) % [place] % (Auto) (0.0-10.0) % Eos % (Auto) (0.0-4.0) % Baso % (Auto) (0.0-2.0) % Neut # (Auto) (1.8-7.0) K/uL Lymph # (Auto) (1.0-4.3) K/uL [place] # (Auto) (0.0-0.8) K/uL Eos # (Auto) (0.0-0.7) K/uL Baso # (Auto) (0.0-0.2) K/uL Neutrophils % (Manual) (50-75) % Lymphocytes % (Manual) (20-40) % Monocytes % (Manual) (0-10) % Platelet Estimate (NORMAL) Polychromasia Hypochromasia (manual) Anisocytosis (manual) Sodium (132-148) mmol/L Potassium (3.6-5.2) mmol/L Chloride (98-107) mmol/L Carbon Dioxide (22-30) mmol/L Anion Gap (10-20) BUN (7-17) mg/dL Creatinine (0.7-1.2) mg/dL Est GFR ( Amer) Est GFR (Non-Af Amer) POC Glucose (mg/dL) 124 H 98 73 (65-110) mg/dL Random Glucose (65-105) mg/dL Calcium (8.6-10.4) mg/dl Total Bilirubin (0.2-1.3) mg/dL AST (14-36) U/L ALT (9-52) U/L Alkaline Phosphatase (38-126) U/L Total Protein (6.3-8.3) g/dL Albumin (3.5-5.0) g/dL Globulin (2.2-3.9) gm/dL Albumin/Globulin Ratio (1.0-2.1) Vitamin B12 (239-931) pg/mL Rheumatoid Factor IgG (<=6) U Rheumatoid Factor IgA (<=6) U Rheumatoid Factor IgM (<=6) U MAYI 6 Profile (NEGATIVE) MAYI Titer MAYI Pattern ANCA Screen (NEGATIVE) c-ANCA Titer p-ANCA Titer Atypical p-ANCA Titer Anti-ds DNA Titer (Crith) Anti-ds DNA (Crithidia) (NEGATIVE) 04/06/18 04/06/18 04/06/18 Range/Units 12:12 12:12 12:12 WBC (4.8-10.8) K/uL RBC (3.80-5.20) Mil/uL Hgb (11.0-16.0) g/dL Hct (34.0-47.0) % MCV (81.0-99.0) fL MCH (27.0-31.0) pg MCHC (33.0-37.0) g/dL RDW (11.5-14.5) % Plt Count (130-400) K/uL MPV (7.2-11.7) fL Neut % (Auto) (50.0-75.0) % Lymph % (Auto) (20.0-40.0) % [place] % (Auto) (0.0-10.0) % Eos % (Auto) (0.0-4.0) % Baso % (Auto) (0.0-2.0) % Neut # (Auto) (1.8-7.0) K/uL Lymph # (Auto) (1.0-4.3) K/uL [place] # (Auto) (0.0-0.8) K/uL Eos # (Auto) (0.0-0.7) K/uL Baso # (Auto) (0.0-0.2) K/uL Neutrophils % (Manual) (50-75) % Lymphocytes % (Manual) (20-40) % Monocytes % (Manual) (0-10) % Platelet Estimate (NORMAL) Polychromasia Hypochromasia (manual) Anisocytosis (manual) Sodium (132-148) mmol/L Potassium (3.6-5.2) mmol/L Chloride (98-107) mmol/L Carbon Dioxide (22-30) mmol/L Anion Gap (10-20) BUN (7-17) mg/dL Creatinine (0.7-1.2) mg/dL Est GFR ( Amer) Est GFR (Non-Af Amer) POC Glucose (mg/dL) (65-110) mg/dL Random Glucose (65-105) mg/dL Calcium (8.6-10.4) mg/dl Total Bilirubin (0.2-1.3) mg/dL AST (14-36) U/L ALT (9-52) U/L Alkaline Phosphatase (38-126) U/L Total Protein (6.3-8.3) g/dL Albumin (3.5-5.0) g/dL Globulin (2.2-3.9) gm/dL Albumin/Globulin Ratio (1.0-2.1) Vitamin B12 (239-931) pg/mL Rheumatoid Factor IgG <5 (<=6) U Rheumatoid Factor IgA <5 (<=6) U Rheumatoid Factor IgM <5 (<=6) U MAYI 6 Profile Positive H (NEGATIVE) MAYI Titer 1:40 H MAYI Pattern Speckled H ANCA Screen Negative (NEGATIVE) c-ANCA Titer TNP p-ANCA Titer TNP Atypical p-ANCA Titer TNP Anti-ds DNA Titer (Crith) Anti-ds DNA (Crithidia) (NEGATIVE) 04/03/18 Range/Units 18:23 WBC (4.8-10.8) K/uL RBC (3.80-5.20) Mil/uL Hgb (11.0-16.0) g/dL Hct (34.0-47.0) % MCV (81.0-99.0) fL MCH (27.0-31.0) pg MCHC (33.0-37.0) g/dL RDW (11.5-14.5) % Plt Count (130-400) K/uL MPV (7.2-11.7) fL Neut % (Auto) (50.0-75.0) % Lymph % (Auto) (20.0-40.0) % [place] % (Auto) (0.0-10.0) % Eos % (Auto) (0.0-4.0) % Baso % (Auto) (0.0-2.0) % Neut # (Auto) (1.8-7.0) K/uL Lymph # (Auto) (1.0-4.3) K/uL [place] # (Auto) (0.0-0.8) K/uL Eos # (Auto) (0.0-0.7) K/uL Baso # (Auto) (0.0-0.2) K/uL Neutrophils % (Manual) (50-75) % Lymphocytes % (Manual) (20-40) % Monocytes % (Manual) (0-10) % Platelet Estimate (NORMAL) Polychromasia Hypochromasia (manual) Anisocytosis (manual) Sodium (132-148) mmol/L Potassium (3.6-5.2) mmol/L Chloride (98-107) mmol/L Carbon Dioxide (22-30) mmol/L Anion Gap (10-20) BUN (7-17) mg/dL Creatinine (0.7-1.2) mg/dL Est GFR ( Amer) Est GFR (Non-Af Amer) POC Glucose (mg/dL) (65-110) mg/dL Random Glucose (65-105) mg/dL Calcium (8.6-10.4) mg/dl Total Bilirubin (0.2-1.3) mg/dL AST (14-36) U/L ALT (9-52) U/L Alkaline Phosphatase (38-126) U/L Total Protein (6.3-8.3) g/dL Albumin (3.5-5.0) g/dL Globulin (2.2-3.9) gm/dL Albumin/Globulin Ratio (1.0-2.1) Vitamin B12 (239-931) pg/mL Rheumatoid Factor IgG (<=6) U Rheumatoid Factor IgA (<=6) U Rheumatoid Factor IgM (<=6) U MAYI 6 Profile (NEGATIVE) MYAI Titer MAYI Pattern ANCA Screen (NEGATIVE) c-ANCA Titer p-ANCA Titer Atypical p-ANCA Titer Anti-ds DNA Titer (Crith) TNP Anti-ds DNA (Crithidia) Negative (NEGATIVE) Laboratory Results - last 24 hr 04/03/18 04/06/18 04/06/18 18:23 12:12 12:12 WBC RBC Hgb Hct MCV MCH MCHC RDW Plt Count MPV Neut % (Auto) Lymph % (Auto) [place] % (Auto) Eos % (Auto) Baso % (Auto) Neut # (Auto) Lymph # (Auto) [place] # (Auto) Eos # (Auto) Baso # (Auto) Neutrophils % (Manual) Lymphocytes % (Manual) Monocytes % (Manual) Platelet Estimate Polychromasia Hypochromasia (manual) Anisocytosis (manual) Sodium Potassium Chloride Carbon Dioxide Anion Gap BUN Creatinine Est GFR ( Amer) Est GFR (Non-Af Amer) POC Glucose (mg/dL) Random Glucose Calcium Total Bilirubin AST ALT Alkaline Phosphatase Total Protein Albumin Globulin Albumin/Globulin Ratio Vitamin B12 Rheumatoid Factor IgG Rheumatoid Factor IgA Rheumatoid Factor IgM MAYI 6 Profile Positive H MAYI Titer 1:40 H MAYI Pattern Speckled H ANCA Screen Negative c-ANCA Titer TNP p-ANCA Titer TNP Atypical p-ANCA Titer TNP Anti-ds DNA Titer (Crith) TNP Anti-ds DNA (Crithidia) Negative 04/06/18 04/07/18 04/07/18 12:12 17:49 23:58 WBC RBC Hgb Hct MCV MCH MCHC RDW Plt Count MPV Neut % (Auto) Lymph % (Auto) [place] % (Auto) Eos % (Auto) Baso % (Auto) Neut # (Auto) Lymph # (Auto) [place] # (Auto) Eos # (Auto) Baso # (Auto) Neutrophils % (Manual) Lymphocytes % (Manual) Monocytes % (Manual) Platelet Estimate Polychromasia Hypochromasia (manual) Anisocytosis (manual) Sodium Potassium Chloride Carbon Dioxide Anion Gap BUN Creatinine Est GFR ( Amer) Est GFR (Non-Af Amer) POC Glucose (mg/dL) 73 98 Random Glucose Calcium Total Bilirubin AST ALT Alkaline Phosphatase Total Protein Albumin Globulin Albumin/Globulin Ratio Vitamin B12 Rheumatoid Factor IgG <5 Rheumatoid Factor IgA <5 Rheumatoid Factor IgM <5 MAYI 6 Profile MAYI Titer MAYI Pattern ANCA Screen c-ANCA Titer p-ANCA Titer Atypical p-ANCA Titer Anti-ds DNA Titer (Crith) Anti-ds DNA (Crithidia) 04/08/18 04/08/18 04/08/18 05:19 11:51 18:00 WBC RBC Hgb Hct MCV MCH MCHC RDW Plt Count MPV Neut % (Auto) Lymph % (Auto) [place] % (Auto) Eos % (Auto) Baso % (Auto) Neut # (Auto) Lymph # (Auto) [place] # (Auto) Eos # (Auto) Baso # (Auto) Neutrophils % (Manual) Lymphocytes % (Manual) Monocytes % (Manual) Platelet Estimate Polychromasia Hypochromasia (manual) Anisocytosis (manual) Sodium Potassium Chloride Carbon Dioxide Anion Gap BUN Creatinine Est GFR ( Amer) Est GFR (Non-Af Amer) POC Glucose (mg/dL) 124 H 108 97 Random Glucose Calcium Total Bilirubin AST ALT Alkaline Phosphatase Total Protein Albumin Globulin Albumin/Globulin Ratio Vitamin B12 Rheumatoid Factor IgG Rheumatoid Factor IgA Rheumatoid Factor IgM MAYI 6 Profile MAYI Titer MAYI Pattern ANCA Screen c-ANCA Titer p-ANCA Titer Atypical p-ANCA Titer Anti-ds DNA Titer (Crith) Anti-ds DNA (Crithidia) 04/08/18 04/09/18 04/09/18 23:52 05:15 11:51 WBC RBC Hgb Hct MCV MCH MCHC RDW Plt Count MPV Neut % (Auto) Lymph % (Auto) [place] % (Auto) Eos % (Auto) Baso % (Auto) Neut # (Auto) Lymph # (Auto) [place] # (Auto) Eos # (Auto) Baso # (Auto) Neutrophils % (Manual) Lymphocytes % (Manual) Monocytes % (Manual) Platelet Estimate Polychromasia Hypochromasia (manual) Anisocytosis (manual) Sodium Potassium Chloride Carbon Dioxide Anion Gap BUN Creatinine Est GFR ( Amer) Est GFR (Non-Af Amer) POC Glucose (mg/dL) 98 72 88 Random Glucose Calcium Total Bilirubin AST ALT Alkaline Phosphatase Total Protein Albumin Globulin Albumin/Globulin Ratio Vitamin B12 Rheumatoid Factor IgG Rheumatoid Factor IgA Rheumatoid Factor IgM MAYI 6 Profile MAYI Titer MAYI Pattern ANCA Screen c-ANCA Titer p-ANCA Titer Atypical p-ANCA Titer Anti-ds DNA Titer (Crith) Anti-ds DNA (Crithidia) 04/09/18 04/09/18 04/10/18 17:49 23:51 05:19 WBC RBC Hgb Hct MCV MCH MCHC RDW Plt Count MPV Neut % (Auto) Lymph % (Auto) [place] % (Auto) Eos % (Auto) Baso % (Auto) Neut # (Auto) Lymph # (Auto) [place] # (Auto) Eos # (Auto) Baso # (Auto) Neutrophils % (Manual) Lymphocytes % (Manual) Monocytes % (Manual) Platelet Estimate Polychromasia Hypochromasia (manual) Anisocytosis (manual) Sodium Potassium Chloride Carbon Dioxide Anion Gap BUN Creatinine Est GFR ( Amer) Est GFR (Non-Af Amer) POC Glucose (mg/dL) 94 103 107 Random Glucose Calcium Total Bilirubin AST ALT Alkaline Phosphatase Total Protein Albumin Globulin Albumin/Globulin Ratio Vitamin B12 Rheumatoid Factor IgG Rheumatoid Factor IgA Rheumatoid Factor IgM MAYI 6 Profile MAYI Titer MAYI Pattern ANCA Screen c-ANCA Titer p-ANCA Titer Atypical p-ANCA Titer Anti-ds DNA Titer (Crith) Anti-ds DNA (Crithidia) 04/10/18 04/10/18 04/10/18 09:32 11:54 17:32 WBC RBC Hgb Hct MCV MCH MCHC RDW Plt Count MPV Neut % (Auto) Lymph % (Auto) [place] % (Auto) Eos % (Auto) Baso % (Auto) Neut # (Auto) Lymph # (Auto) [place] # (Auto) Eos # (Auto) Baso # (Auto) Neutrophils % (Manual) Lymphocytes % (Manual) Monocytes % (Manual) Platelet Estimate Polychromasia Hypochromasia (manual) Anisocytosis (manual) Sodium Potassium Chloride Carbon Dioxide Anion Gap BUN Creatinine Est GFR ( Amer) Est GFR (Non-Af Amer) POC Glucose (mg/dL) 107 100 114 H Random Glucose Calcium Total Bilirubin AST ALT Alkaline Phosphatase Total Protein Albumin Globulin Albumin/Globulin Ratio Vitamin B12 Rheumatoid Factor IgG Rheumatoid Factor IgA Rheumatoid Factor IgM MAYI 6 Profile MAYI Titer MAYI Pattern ANCA Screen c-ANCA Titer p-ANCA Titer Atypical p-ANCA Titer Anti-ds DNA Titer (Crith) Anti-ds DNA (Crithidia) 04/10/18 04/11/18 04/11/18 23:24 06:05 06:29 WBC 27.9 H RBC 3.07 L Hgb 8.5 L Hct 25.6 L MCV 83.4 MCH 27.8 MCHC 33.3 RDW 17.8 H Plt Count 178 MPV 9.0 Neut % (Auto) 90.4 H Lymph % (Auto) 5.2 L [place] % (Auto) 4.1 Eos % (Auto) 0.2 Baso % (Auto) 0.1 Neut # (Auto) 25.2 H Lymph # (Auto) 1.4 [place] # (Auto) 1.1 H Eos # (Auto) 0.1 Baso # (Auto) 0.0 Neutrophils % (Manual) 89 H Lymphocytes % (Manual) 6 L Monocytes % (Manual) 5 Platelet Estimate Normal Polychromasia Slight Hypochromasia (manual) Slight Anisocytosis (manual) Slight Sodium Potassium Chloride Carbon Dioxide Anion Gap BUN Creatinine Est GFR ( Amer) Est GFR (Non-Af Amer) POC Glucose (mg/dL) 116 H 86 Random Glucose Calcium Total Bilirubin AST ALT Alkaline Phosphatase Total Protein Albumin Globulin Albumin/Globulin Ratio Vitamin B12 Rheumatoid Factor IgG Rheumatoid Factor IgA Rheumatoid Factor IgM MAYI 6 Profile MAYI Titer MAYI Pattern ANCA Screen c-ANCA Titer p-ANCA Titer Atypical p-ANCA Titer Anti-ds DNA Titer (Crith) Anti-ds DNA (Crithidia) 04/11/18 06:29 WBC RBC Hgb Hct MCV MCH MCHC RDW Plt Count MPV Neut % (Auto) Lymph % (Auto) [place] % (Auto) Eos % (Auto) Baso % (Auto) Neut # (Auto) Lymph # (Auto) [place] # (Auto) Eos # (Auto) Baso # (Auto) Neutrophils % (Manual) Lymphocytes % (Manual) Monocytes % (Manual) Platelet Estimate Polychromasia Hypochromasia (manual) Anisocytosis (manual) Sodium 139 Potassium 3.8 Chloride 102 Carbon Dioxide 23 Anion Gap 18 BUN 42 H Creatinine 2.3 H Est GFR ( Amer) 27 Est GFR (Non-Af Amer) 22 POC Glucose (mg/dL) Random Glucose 89 Calcium 8.2 L Total Bilirubin 0.9 AST 21 ALT 32 Alkaline Phosphatase 146 H Total Protein 5.1 L Albumin 2.5 L Globulin 2.6 Albumin/Globulin Ratio 1.0 Vitamin B12 457 Rheumatoid Factor IgG Rheumatoid Factor IgA Rheumatoid Factor IgM MAYI 6 Profile MAYI Titer AMYI Pattern ANCA Screen c-ANCA Titer p-ANCA Titer Atypical p-ANCA Titer Anti-ds DNA Titer (Crith) Anti-ds DNA (Crithidia) Fingerstick Blood Sugar Results: 86 Review of Systems - Review of Systems Review of Systems: Please See subjective Critical Care Progress Note - Nutrition Nutrition: Nutrition Category Date Time Status NPO Diet [DIET] Diets 04/06/18 Breakfast Active Assessment/Plan - Assessment and Plan (Free Text) Assessment: 52 year old female with Unspecified medical history who presented to [place] ICU from [facility] Room. [place]. On Admission patient was found to have leukocytosis and significant skin excoriations, foul smelling ulcer in the right leg, multiple ecchymosis in the abdomen/groin area/lower extremity, necrotic tissue on lower extremity and bullae. Patiently found to be severely Anemic and was transfused a total of 5 PRBC's. Patient is edematous in the upper and lower extremities b/ l. 04/04: Transfused 2 Units of PRBC's 04/06: Lower extremity Wound Debridement, Began Discussion of Transfer to Burn Unit. 04/07: Extubated. Plan: Neuro GCS: 15 Sedation: None Cardio: ECHO (04/02): Shows Normal EF (55%) Pulm: CXR (04/04): Endotracheal and NG tube in place. Mild venous congestion. Bilateral hilar prominence. Tortuous ectatic aorta. Biapical pleural thickening with upper lobe granulomatous changes. CXR (04/10): New Right infrahilar atelectasis. Otherwise no change. CXR (04/11): Possible very small bilateral pleural effusion. ABG (04/04): pH-7.56, C02-24, 02-188, HCO3-24.6 ABG (04/05): pH-7.56, C02 - 26, 02-157, HCO3-23.9 ABG ( 04/07): pH-7.52, C02 - 27, 02 - 187, HCO3-24.6 Extubated on 04/07. Now Tolerating NC 02 GI A: Elevated LFT's (Resolved) Abd/Pelvis CT (04/02/18): Prominent gallbladder distention with cholelithiasis. Clinically correlate for potential cholecystitis. Possible ileus or early distal small bowel obstruction. Potential segmental colitis in various large-bowel segments though this is limited in diagnostic power due to collapse of the majority of the large bowel. Mild bilateral hydroureteronephrosis potentially on the basis of enlarged myomatous uterus. Potential infectious or inflammatory process affecting the uterus. Myomatous uterine changes also noted. Anasarca and trace ascites. Hepatitis Panel - NEGATIVE OBGYN A: Uterine Mass TV Ultrasound to be done today. Renal A: LULA , Hypocalcemia, Hyperphosphetemia, Hyponatremia Complement Studies per ID - NEGATIVE [place] -137 Lambda-94, Lupus, MicroAlbumin w/ Cr - Elevated Total Protein - Elevated , Serum Immunifixation Detected. Renal US (04/04): B/L mild hyronephrosis. small non-obstructing renal calculi in Right Kidney phos binders, nephrovite, vit D, iron supplements per Nephro urology consult for b/l hydronephrosis per Nephro, Recs appreciated. Hemodialysis MWF, Dialysis Today. via permacath (place don 04/06) Monitor Electrolytes Heme/Onc A: Iron Def. Anemia s/p 5 Units of PRBCs, thromboycytopenia (Acute). 2 Units of PRBC's transfused on 04/04/18. Hematology/Onc Consulted (Dr. Ospina), Recs Appreciated Myeloproliferative Disorder RUle OUT. BCR/ABL1 GENE PCR - Not Detected, MACY - Negative? , ASO- Negative HgB Stable CA 125 - 90.6 , CA19-9 - 286 , CEA - 5.7. All ordered tumor markers elevated. DIC Workup to rule out Purpura Fulminans -Fibrinogen (WNL) Fibrin Split Products - Order Cancelled in AM (Unknown who) , Pt/PTT, Retic Count (WNL), Haptoglobin (Elevated), D- Dimer (Elevated, likely due to Malignancy) Haptoglobin - 346.1 (Elevated) HIT - NEGATIVE EPO per Renal. Ferrous Gluconated 324mg PO TID Anti Parietal Cell Ab- Elevated Rheumatology MAYI 6 - POSITIVE, MAYI Titer - 1:40, MAYI Pattern - Speckled Rh Factor - NEGATIVE ID A: Leukocytosis (Improving), Purpura Fulminans? ID Consulted (Dr. Camarena, Recs appreciated) Lower Ext CT (04/02): Anasarca type pattern is favored over fasciitis of the bilateral lower extremities diffusely and is favored over fasciitis the fasciitis is still not excluded, a CT diagnosis is difficult to make without intravenous contrast. Necrotizing fasciitis is not identified however. Further clinical correlation is recommended. Blood Cultures (04/01 [facility]): POSITIVE for Listeria Monocytogenes Blood Cultures (04/02): NEGATIVE Wound Cultures (04/02): Left and Right leg NEGATIVE (Prelim) ESR (04/03): WNL Hepatitis Panel - NEGATIVE Anitbiotics: Cont. Doxycylcine, Meropenem, Ampicillin. General Surgery/Vascular Surgery Consulted, Recs Appreciated. Stool for Vibrio Cholera per ID Wound Cultures - POSITIVE for Coagulase Negative Staph - Likely contamination. DIC Workup showed Elevated Haptoglobin and elevated D-dimer. Integumentary A: Status post wound debridement of Lower Extremity on 04/07. Will discuss will family transfer to Burn Unit for better management of extensive skin wounds. Silvadene w/ Xeroform for Diffuse Wounds. Debridement Speciment - "Fragments of Fibroconnective Tissue with Acute and chronic inflammation, abscess formation, granulation tissue, bacaterial colonies and reactive tissue) Vitamin C BID Endo A: Vitamin D Def. 2000 IU Vitamin D Daily MSK A: Deconditioning PT/OT Proph Protonix IV Daily Heparin Q12 Dispo: Will F/U with family regarding places they want patient to be transferred. Mother was called in AM and message was left with her to call back. Patient seen and discussed with ICU Attending Mik Huynh, PGY-1 <Yomi Mckeon - Last Filed: 04/11/18 17:47> CCU Objective - Vital Signs / Intake & Output Vital Signs (Last 4 hours): Vital Signs Pulse Resp BP Pulse Ox 04/11/18 14:05 113 H 21 95/50 L 100 04/11/18 14:00 111 H 20 99 04/11/18 13:57 111 H 23 95/50 L 100 Intake and Output (Last 8hrs): Intake & Output 04/11/18 04/11/18 04/11/18 06:59 14:59 22:59 Intake Total 770.0 783.0 Output Total 250 440 Balance 520.0 343.0 Weight 123 lb 7.342 oz Intake: IV 226 215 Intake, IV Amount 324.0 368.0 Left Medial Port Internal 200 Jugular Left Proximal Port 324.0 168.0 Internal Jugular Tube Feeding 220 150 Other 50 Output: Gastric Amount 250 15 Stomach 250 15 Urine 425 Urethral ([place]) 425 Emesis 0 Other: # Voids Urine, Voided 0 # Bowel Movements 0 - Medications Active Medications: Active Medications Generic Name Dose Route Start Last Admin Trade Name Freq PRN Reason Stop Dose Admin Albuterol/Ipratropium 3 ml 04/03/18 09:30 04/10/18 14:28 Duoneb 3 Mg/0.5 Mg (3 Ml) Ud INH 3 ml RQ6 PRN Administration Shortness of Breath Ascorbic Acid 500 mg 04/02/18 10:00 04/11/18 17:07 Vitamin C 500 Mg Tab PO 500 mg BID NOLAN Administration Calcium Acetate 1,334 mg 04/05/18 09:32 04/11/18 17:07 Phoslo PO 1,334 mg TIDCC NOLAN Administration Ergocalciferol 1 cap 04/04/18 10:45 04/11/18 10:27 Drisdol 50,000 Intl Units Cap PO 1 cap Q7D NOLAN Administration Heparin Sodium (Porcine) 5,000 units 04/02/18 22:00 04/11/18 10:26 Heparin SC 5,000 units Q12 NOLAN Administration Ampicillin 2 gm/ Sodium 100 mls @ 200 mls/hr 04/06/18 12:00 04/11/18 11:57 Chloride IVPB 200 mls/hr Q8H NOLAN Administration Protocol Meropenem 500 mg/ Sodium 100 mls @ 100 mls/hr 04/07/18 23:30 04/11/18 10:30 Chloride IVPB 04/14/18 23:31 100 mls/hr Q12H NOLAN Administration Protocol Norepinephrine Bitartrate 4 mg 254 mls @ 15.24 mls/hr 04/10/18 07:15 13:57 / Sodium Chloride IV 8 mcg/min .[id number] PRN 30.48 mls/hr TITRATE PER MD ORDER Administration Protocol 4 MCG/MIN Chromium/Copper/Manganese/Zinc 1,012 mls @ 42 mls/hr 04/11/18 18:00 1 ml/ Multivitamins/Vitamin C IV 04/12/18 17:59 10 ml/ Heparin Sodium ( .Q24H ONE Porcine) 1,000 units/ Amino Acids/Electrolytes/Dextrose Multivitamins/Vitamin C 5 ml 04/03/18 10:15 04/11/18 10:27 Multi-Delyn Liquid PO 5 ml DAILY NOLAN Administration Pantoprazole Sodium 40 mg 04/02/18 10:00 04/11/18 10:26 Protonix Inj IVP 40 mg DAILY NOLAN Administration Silver Sulfadiazine 0 ea 04/08/18 10:00 04/11/18 10:29 Silvadene 1% TOP 1 applic DAILY NOLAN Administration Silver Sulfadiazine 0 ea 04/11/18 10:00 04/11/18 10:28 Silvadene 1% TOP 1 applic Q12 NOLAN Administration Vitamin A 1 ea 04/10/18 23:00 04/11/18 00:14 Vitamin A & D Oint Ud Foilpak TOP 1 ea Q8 PRN Administration Dry Lips - Patient Studies Lab Studies: Lab Studies 04/11/18 04/11/18 04/11/18 Range/Units 12:16 12:11 06:29 WBC (4.8-10.8) K/uL RBC (3.80-5.20) Mil/uL Hgb (11.0-16.0) g/dL Hct (34.0-47.0) % MCV (81.0-99.0) fL MCH (27.0-31.0) pg MCHC (33.0-37.0) g/dL RDW (11.5-14.5) % Plt Count (130-400) K/uL MPV (7.2-11.7) fL Neut % (Auto) (50.0-75.0) % Lymph % (Auto) (20.0-40.0) % [place] % (Auto) (0.0-10.0) % Eos % (Auto) (0.0-4.0) % Baso % (Auto) (0.0-2.0) % Neut # (Auto) (1.8-7.0) K/uL Lymph # (Auto) (1.0-4.3) K/uL [place] # (Auto) (0.0-0.8) K/uL Eos # (Auto) (0.0-0.7) K/uL Baso # (Auto) (0.0-0.2) K/uL Neutrophils % (Manual) (50-75) % Lymphocytes % (Manual) (20-40) % Monocytes % (Manual) (0-10) % Platelet Estimate (NORMAL) Polychromasia Hypochromasia (manual) Anisocytosis (manual) Sodium 139 (132-148) mmol/L Potassium 3.8 (3.6-5.2) mmol/L Chloride 102 (98-107) mmol/L Carbon Dioxide 23 (22-30) mmol/L Anion Gap 18 (10-20) BUN 42 H (7-17) mg/dL Creatinine 2.3 H (0.7-1.2) mg/dL Est GFR ( Amer) 27 Est GFR (Non-Af Amer) 22 POC Glucose (mg/dL) 132 H (65-110) mg/dL Random Glucose 89 (65-105) mg/dL Calcium 8.2 L (8.6-10.4) mg/dl Total Bilirubin 0.9 (0.2-1.3) mg/dL AST 21 (14-36) U/L ALT 32 (9-52) U/L Alkaline Phosphatase 146 H (38-126) U/L Total Protein 5.1 L (6.3-8.3) g/dL Albumin 2.5 L (3.5-5.0) g/dL Globulin 2.6 (2.2-3.9) gm/dL Albumin/Globulin Ratio 1.0 (1.0-2.1) Vitamin B12 457 (239-931) pg/mL Urine Color Lara (YELLOW) Urine Clarity Hazy (Clear) Urine pH 5.0 (5.0-8.0) Ur Specific [place] 1.020 (1.003-1.030) Urine Protein 1+ H (NEGATIVE) mg/dL Urine Glucose (UA) 1+ (Normal) mg/dL Urine Ketones Trace (NEGATIVE) mg/dL Urine Blood 2+ H (NEGATIVE) Urine Nitrate Negative (NEGATIVE) Urine Bilirubin Negative (NEGATIVE) Urine Urobilinogen 2.0 H (0.2-1.0) mg/dL Ur Leukocyte Esterase 2+ H (Negative) Arnoldo/uL Urine WBC (Auto) 111 H (0-5) /hpf Urine RBC (Auto) 2 (0-3) /hpf Urine WBC Clumps (Auto) Occ H (NONE) /hpf Ur Squamous Epith Cells 3 (0-5) /hpf Amorphous Sediment Few H (<OCC) /ul Urine Bacteria Occ H (<OCC) ANCA Screen (NEGATIVE) Proteinase 3 (PR3) (<1.0) AI Myeloperoxidase Ab (<1.0) AI Anti-ds DNA Titer (Crith) Anti-ds DNA (Crithidia) (NEGATIVE) 04/11/18 04/11/18 04/10/18 Range/Units 06:29 06:05 23:24 WBC 27.9 H (4.8-10.8) K/uL RBC 3.07 L (3.80-5.20) Mil/uL Hgb 8.5 L (11.0-16.0) g/dL Hct 25.6 L (34.0-47.0) % MCV 83.4 (81.0-99.0) fL MCH 27.8 (27.0-31.0) pg MCHC 33.3 (33.0-37.0) g/dL RDW 17.8 H (11.5-14.5) % Plt Count 178 (130-400) K/uL MPV 9.0 (7.2-11.7) fL Neut % (Auto) 90.4 H (50.0-75.0) % Lymph % (Auto) 5.2 L (20.0-40.0) % [place] % (Auto) 4.1 (0.0-10.0) % Eos % (Auto) 0.2 (0.0-4.0) % Baso % (Auto) 0.1 (0.0-2.0) % Neut # (Auto) 25.2 H (1.8-7.0) K/uL Lymph # (Auto) 1.4 (1.0-4.3) K/uL [place] # (Auto) 1.1 H (0.0-0.8) K/uL Eos # (Auto) 0.1 (0.0-0.7) K/uL Baso # (Auto) 0.0 (0.0-0.2) K/uL Neutrophils % (Manual) 89 H (50-75) % Lymphocytes % (Manual) 6 L (20-40) % Monocytes % (Manual) 5 (0-10) % Platelet Estimate Normal (NORMAL) Polychromasia Slight Hypochromasia (manual) Slight Anisocytosis (manual) Slight Sodium (132-148) mmol/L Potassium (3.6-5.2) mmol/L Chloride (98-107) mmol/L Carbon Dioxide (22-30) mmol/L Anion Gap (10-20) BUN (7-17) mg/dL Creatinine (0.7-1.2) mg/dL Est GFR ( Amer) Est GFR (Non-Af Amer) POC Glucose (mg/dL) 86 116 H (65-110) mg/dL Random Glucose (65-105) mg/dL Calcium (8.6-10.4) mg/dl Total Bilirubin (0.2-1.3) mg/dL AST (14-36) U/L ALT (9-52) U/L Alkaline Phosphatase (38-126) U/L Total Protein (6.3-8.3) g/dL Albumin (3.5-5.0) g/dL Globulin (2.2-3.9) gm/dL Albumin/Globulin Ratio (1.0-2.1) Vitamin B12 (239-931) pg/mL Urine Color (YELLOW) Urine Clarity (Clear) Urine pH (5.0-8.0) Ur Specific [place] (1.003-1.030) Urine Protein (NEGATIVE) mg/dL Urine Glucose (UA) (Normal) mg/dL Urine Ketones (NEGATIVE) mg/dL Urine Blood (NEGATIVE) Urine Nitrate (NEGATIVE) Urine Bilirubin (NEGATIVE) Urine Urobilinogen (0.2-1.0) mg/dL Ur Leukocyte Esterase (Negative) Arnoldo/uL Urine WBC (Auto) (0-5) /hpf Urine RBC (Auto) (0-3) /hpf Urine WBC Clumps (Auto) (NONE) /hpf Ur Squamous Epith Cells (0-5) /hpf Amorphous Sediment (<OCC) /ul Urine Bacteria (<OCC) ANCA Screen (NEGATIVE) Proteinase 3 (PR3) (<1.0) AI Myeloperoxidase Ab (<1.0) AI Anti-ds DNA Titer (Crith) Anti-ds DNA (Crithidia) (NEGATIVE) 04/06/18 04/03/18 Range/Units 12:12 18:23 WBC (4.8-10.8) K/uL RBC (3.80-5.20) Mil/uL Hgb (11.0-16.0) g/dL Hct (34.0-47.0) % MCV (81.0-99.0) fL MCH (27.0-31.0) pg MCHC (33.0-37.0) g/dL RDW (11.5-14.5) % Plt Count (130-400) K/uL MPV (7.2-11.7) fL Neut % (Auto) (50.0-75.0) % Lymph % (Auto) (20.0-40.0) % [place] % (Auto) (0.0-10.0) % Eos % (Auto) (0.0-4.0) % Baso % (Auto) (0.0-2.0) % Neut # (Auto) (1.8-7.0) K/uL Lymph # (Auto) (1.0-4.3) K/uL [place] # (Auto) (0.0-0.8) K/uL Eos # (Auto) (0.0-0.7) K/uL Baso # (Auto) (0.0-0.2) K/uL Neutrophils % (Manual) (50-75) % Lymphocytes % (Manual) (20-40) % Monocytes % (Manual) (0-10) % Platelet Estimate (NORMAL) Polychromasia Hypochromasia (manual) Anisocytosis (manual) Sodium (132-148) mmol/L Potassium (3.6-5.2) mmol/L Chloride (98-107) mmol/L Carbon Dioxide (22-30) mmol/L Anion Gap (10-20) BUN (7-17) mg/dL Creatinine (0.7-1.2) mg/dL Est GFR ( Amer) Est GFR (Non-Af Amer) POC Glucose (mg/dL) (65-110) mg/dL Random Glucose (65-105) mg/dL Calcium (8.6-10.4) mg/dl Total Bilirubin (0.2-1.3) mg/dL AST (14-36) U/L ALT (9-52) U/L Alkaline Phosphatase (38-126) U/L Total Protein (6.3-8.3) g/dL Albumin (3.5-5.0) g/dL Globulin (2.2-3.9) gm/dL Albumin/Globulin Ratio (1.0-2.1) Vitamin B12 (239-931) pg/mL Urine Color (YELLOW) Urine Clarity (Clear) Urine pH (5.0-8.0) Ur Specific [place] (1.003-1.030) Urine Protein (NEGATIVE) mg/dL Urine Glucose (UA) (Normal) mg/dL Urine Ketones (NEGATIVE) mg/dL Urine Blood (NEGATIVE) Urine Nitrate (NEGATIVE) Urine Bilirubin (NEGATIVE) Urine Urobilinogen (0.2-1.0) mg/dL Ur Leukocyte Esterase (Negative) Arnoldo/uL Urine WBC (Auto) (0-5) /hpf Urine RBC (Auto) (0-3) /hpf Urine WBC Clumps (Auto) (NONE) /hpf Ur Squamous Epith Cells (0-5) /hpf Amorphous Sediment (<OCC) /ul Urine Bacteria (<OCC) ANCA Screen Negative (NEGATIVE) Proteinase 3 (PR3) <1.0 (<1.0) AI Myeloperoxidase Ab <1.0 (<1.0) AI Anti-ds DNA Titer (Crith) TNP Anti-ds DNA (Crithidia) Negative (NEGATIVE) Laboratory Results - last 24 hr 04/03/18 04/06/18 04/10/18 18:23 12:12 23:24 WBC RBC Hgb Hct MCV MCH MCHC RDW Plt Count MPV Neut % (Auto) Lymph % (Auto) [place] % (Auto) Eos % (Auto) Baso % (Auto) Neut # (Auto) Lymph # (Auto) [place] # (Auto) Eos # (Auto) Baso # (Auto) Neutrophils % (Manual) Lymphocytes % (Manual) Monocytes % (Manual) Platelet Estimate Polychromasia Hypochromasia (manual) Anisocytosis (manual) Sodium Potassium Chloride Carbon Dioxide Anion Gap BUN Creatinine Est GFR ( Amer) Est GFR (Non-Af Amer) POC Glucose (mg/dL) 116 H Random Glucose Calcium Total Bilirubin AST ALT Alkaline Phosphatase Total Protein Albumin Globulin Albumin/Globulin Ratio Vitamin B12 Urine Color Urine Clarity Urine pH Ur Specific [place] Urine Protein Urine Glucose (UA) Urine Ketones Urine Blood Urine Nitrate Urine Bilirubin Urine Urobilinogen Ur Leukocyte Esterase Urine WBC (Auto) Urine RBC (Auto) Urine WBC Clumps (Auto) Ur Squamous Epith Cells Amorphous Sediment Urine Bacteria ANCA Screen Negative Proteinase 3 (PR3) <1.0 Myeloperoxidase Ab <1.0 Anti-ds DNA Titer (Crith) TNP Anti-ds DNA (Crithidia) Negative 04/11/18 04/11/18 04/11/18 06:05 06:29 06:29 WBC 27.9 H RBC 3.07 L Hgb 8.5 L Hct 25.6 L MCV 83.4 MCH 27.8 MCHC 33.3 RDW 17.8 H Plt Count 178 MPV 9.0 Neut % (Auto) 90.4 H Lymph % (Auto) 5.2 L [place] % (Auto) 4.1 Eos % (Auto) 0.2 Baso % (Auto) 0.1 Neut # (Auto) 25.2 H Lymph # (Auto) 1.4 [place] # (Auto) 1.1 H Eos # (Auto) 0.1 Baso # (Auto) 0.0 Neutrophils % (Manual) 89 H Lymphocytes % (Manual) 6 L Monocytes % (Manual) 5 Platelet Estimate Normal Polychromasia Slight Hypochromasia (manual) Slight Anisocytosis (manual) Slight Sodium 139 Potassium 3.8 Chloride 102 Carbon Dioxide 23 Anion Gap 18 BUN 42 H Creatinine 2.3 H Est GFR ( Amer) 27 Est GFR (Non-Af Amer) 22 POC Glucose (mg/dL) 86 Random Glucose 89 Calcium 8.2 L Total Bilirubin 0.9 AST 21 ALT 32 Alkaline Phosphatase 146 H Total Protein 5.1 L Albumin 2.5 L Globulin 2.6 Albumin/Globulin Ratio 1.0 Vitamin B12 457 Urine Color Urine Clarity Urine pH Ur Specific [place] Urine Protein Urine Glucose (UA) Urine Ketones Urine Blood Urine Nitrate Urine Bilirubin Urine Urobilinogen Ur Leukocyte Esterase Urine WBC (Auto) Urine RBC (Auto) Urine WBC Clumps (Auto) Ur Squamous Epith Cells Amorphous Sediment Urine Bacteria ANCA Screen Proteinase 3 (PR3) Myeloperoxidase Ab Anti-ds DNA Titer (Crith) Anti-ds DNA (Crithidia) 04/11/18 04/11/18 12:11 12:16 WBC RBC Hgb Hct MCV MCH MCHC RDW Plt Count MPV Neut % (Auto) Lymph % (Auto) [place] % (Auto) Eos % (Auto) Baso % (Auto) Neut # (Auto) Lymph # (Auto) [place] # (Auto) Eos # (Auto) Baso # (Auto) Neutrophils % (Manual) Lymphocytes % (Manual) Monocytes % (Manual) Platelet Estimate Polychromasia Hypochromasia (manual) Anisocytosis (manual) Sodium Potassium Chloride Carbon Dioxide Anion Gap BUN Creatinine Est GFR ( Amer) Est GFR (Non-Af Amer) POC Glucose (mg/dL) 132 H Random Glucose Calcium Total Bilirubin AST ALT Alkaline Phosphatase Total Protein Albumin Globulin Albumin/Globulin Ratio Vitamin B12 Urine Color Lara Urine Clarity Hazy Urine pH 5.0 Ur Specific [place] 1.020 Urine Protein 1+ H Urine Glucose (UA) 1+ Urine Ketones Trace Urine Blood 2+ H Urine Nitrate Negative Urine Bilirubin Negative Urine Urobilinogen 2.0 H Ur Leukocyte Esterase 2+ H Urine WBC (Auto) 111 H Urine RBC (Auto) 2 Urine WBC Clumps (Auto) Occ H Ur Squamous Epith Cells 3 Amorphous Sediment Few H Urine Bacteria Occ H ANCA Screen Proteinase 3 (PR3) Myeloperoxidase Ab Anti-ds DNA Titer (Crith) Anti-ds DNA (Crithidia) Critical Care Progress Note - Nutrition Nutrition: Nutrition Category Date Time Status NPO Diet [DIET] Diets 04/06/18 Breakfast Active Attending/Attestation - Attestation I have personally seen and examined this patient.: Yes I have fully participated in the care of the patient.: Yes I have reviewed all pertinent clinical information: Yes Notes (Text): 04/11/18 17:45 Patient seen and examined in the intensive care unit. Continue IV antibiotics Started on TPN as patient not tolerating NG tube feeding To be transferred to [facility] burn centre Continue hemodialysis
[2018-04-11 11:27] LABS: ANCA SCREEN NEGATIVE (NEGATIVE)
[2018-04-11 12:41] LABS: SQUAMOUS EPITHIAL 3 /hpf (0-5); URINE AMORPHOUS SEDIMENT FEW /ul (<OCC); URINE BACTERIA OCC (<OCC); URINE BILIRUBIN NEGATIVE (NEGATIVE); URINE BLOOD 2+ (NEGATIVE); URINE CLARITY Hazy (Clear); URINE COLOR Amber (YELLOW); URINE GLUCOSE (UA) 1+ mg/dL (Normal); URINE LEUKOCYTE ESTERASE 2+ Leu/uL (Negative); URINE PROTEIN 1+ mg/dL (NEGATIVE); WBC CLUMPS OCC /hpf
--- NOTE | 2018-04-11 13:02 | CP.PCM.PN ---
Subjective - Date & Time of Evaluation Date of Evaluation: 04/11/18 Time of Evaluation: 10:15 - Subjective Subjective: Patient and bed sitting gotten complaining of some pain in the lower extremity Urine output reported to me by the nurse as 0 urine output. Appetite somewhat poor Objective - Vital Signs/Intake and Output Vital Signs (last 24 hours): Temp Pulse Resp BP Pulse Ox 98.7 F 113 H 24 88/47 L 94 L 04/11/18 12:00 04/11/18 12:10 04/11/18 12:10 04/11/18 12:10 04/11/18 12:10 Intake and Output: 04/11/18 04/11/18 06:59 18:59 Intake Total 1443.5 733.0 Output Total 750 440 Balance 693.5 293.0 - Medications Medications: Current Medications Albuterol/Ipratropium (Duoneb 3 Mg/0.5 Mg (3 Ml) Ud) 3 ml INH RQ6 PRN PRN Reason: Shortness of Breath Last Admin: 04/10/18 14:28 Dose: 3 ml Ascorbic Acid (Vitamin C 500 Mg Tab) 500 mg PO BID [facility] Last Admin: 04/11/18 10:27 Dose: 500 mg Calcium Acetate (Phoslo) 1,334 mg PO TIDCC [facility] Last Admin: 04/11/18 12:31 Dose: 1,334 mg Ergocalciferol (Drisdol 50,000 Intl Units Cap) 1 cap PO Q7D [facility] Last Admin: 04/11/18 10:27 Dose: 1 cap Heparin Sodium (Porcine) (Heparin) 5,000 units SC Q12 [facility] Last Admin: 04/11/18 10:26 Dose: 5,000 units Ampicillin 2 gm/ Sodium (Chloride) 100 mls @ 200 mls/hr IVPB Q8H NOLAN PRN Reason: Protocol Last Admin: 04/11/18 11:57 Dose: 200 mls/hr Meropenem 500 mg/ Sodium (Chloride) 100 mls @ 100 mls/hr IVPB Q12H NOLAN PRN Reason: Protocol Stop: 04/14/18 23:31 Last Admin: 04/11/18 10:30 Dose: 100 mls/hr Norepinephrine Bitartrate 4 mg (/ Sodium Chloride) 254 mls @ 15.24 mls/hr IV .[id number] PRN; Protocol; 4 MCG/MIN PRN Reason: TITRATE PER MD ORDER Last Titration: 04/11/18 12:00 Dose: 8 mcg/min, 30.48 mls/hr Chromium/Copper/Manganese/Zinc 1 ml/ Multivitamins/Vitamin C 10 ml/ Heparin Sodium ( Porcine) 1,000 units/ Amino Acids/Electrolytes/Dextrose 1,012 mls @ 42 mls/hr IV .Q24H ONE Stop: 04/12/18 17:59 Multivitamins/Vitamin C (Multi-Delyn Liquid) 5 ml PO DAILY NOLAN Last Admin: 04/11/18 10:27 Dose: 5 ml Pantoprazole Sodium (Protonix Inj) 40 mg IVP DAILY NOLAN Last Admin: 04/11/18 10:26 Dose: 40 mg Silver Sulfadiazine (Silvadene 1%) 0 ea TOP DAILY NOLAN Last Admin: 04/11/18 10:29 Dose: 1 applic Silver Sulfadiazine (Silvadene 1%) 0 ea TOP Q12 NOLAN Last Admin: 04/11/18 10:28 Dose: 1 applic Vitamin A (Vitamin A & D Oint Ud Foilpak) 1 ea TOP Q8 PRN PRN Reason: Dry Lips Last Admin: 04/11/18 00:14 Dose: 1 ea - Labs Labs: 04/11/18 06:29 04/11/18 06:29 PT 11.2 SECONDS (9.7-12.2) 04/05/18 06:15 INR 1.0 04/05/18 06:15 APTT 29 SECONDS (21-34) 04/05/18 06:15 - Constitutional Appears: No Acute Distress - ENT Exam ENT Exam: Mucous Membranes Moist - Neck Exam Neck Exam: absent: Lymphadenopathy - Respiratory Exam Respiratory Exam: NORMAL BREATHING PATTERN. absent: Chest Wall Tenderness - Cardiovascular Exam Cardiovascular Exam: absent: Gallop, JVD, Rubs - GI/Abdominal Exam GI & Abdominal Exam: Soft, Mass, Normal Bowel Sounds Additional comments: mass in the lower part of the abdomen and suprapubic area - Extremities Exam Extremities Exam: absent: Calf Tenderness - Back Exam Back Exam: absent: CVA tenderness (L), CVA tenderness (R) - Neurological Exam Neurological Exam: Alert - Psychiatric Exam Psychiatric exam: Normal Affect - Skin Skin Exam: absent: Cyanosis Assessment and Plan (1) Acute tubular necrosis Assessment & Plan: Anuric Acute Kidney Injury (N17.9) ? 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 Bladder scanning done, I am at the bedside with RN showed approximately 650 mL urine retention. Stat [place] catheter put in place and we will check the urine which has been drained. Patient remained on vasopressors. Patient will need kidney biopsy when her condition is improving. Extensive skin rash in the lower extremity and lower abdomen. Etiology remain pending and I suggested the skin biopsy if it's not done yet. Status: Acute (2) Listeria septicemia Status: Acute
[2018-04-11] MEDS ORDERED: *** TPN # 1 IV ONE (18:00)
--- NOTE | 2018-04-11 22:22 | CP.PCM.PN ---
Subjective - Date & Time of Evaluation Date of Evaluation: 04/11/18 Time of Evaluation: 04:00 - Subjective Subjective: dictated Objective - Vital Signs/Intake and Output Vital Signs (last 24 hours): Temp Pulse Resp BP Pulse Ox 98.7 F 123 H 25 H 100/46 L 92 L 04/11/18 20:00 04/11/18 21:41 04/11/18 21:41 04/11/18 21:58 04/11/18 21:41 Intake and Output: 04/11/18 04/12/18 18:59 06:59 Intake Total 1235.0 508 Output Total 440 10 Balance 795.0 498 - Medications Medications: Current Medications Albuterol/Ipratropium (Duoneb 3 Mg/0.5 Mg (3 Ml) Ud) 3 ml INH RQ6 PRN PRN Reason: Shortness of Breath Last Admin: 04/10/18 14:28 Dose: 3 ml Ascorbic Acid (Vitamin C 500 Mg Tab) 500 mg PO BID [facility] Last Admin: 04/11/18 17:07 Dose: 500 mg Calcium Acetate (Phoslo) 1,334 mg PO TIDCC [facility] Last Admin: 04/11/18 17:07 Dose: 1,334 mg Ergocalciferol (Drisdol 50,000 Intl Units Cap) 1 cap PO Q7D [facility] Last Admin: 04/11/18 10:27 Dose: 1 cap Heparin Sodium (Porcine) (Heparin) 5,000 units SC Q12 [facility] Last Admin: 04/11/18 21:58 Dose: 5,000 units Ampicillin 2 gm/ Sodium (Chloride) 100 mls @ 200 mls/hr IVPB Q8H [facility] PRN Reason: Protocol Last Admin: 04/11/18 19:37 Dose: 200 mls/hr Meropenem 500 mg/ Sodium (Chloride) 100 mls @ 100 mls/hr IVPB Q12H [facility] PRN Reason: Protocol Stop: 04/14/18 23:31 Last Admin: 04/11/18 10:30 Dose: 100 mls/hr Norepinephrine Bitartrate 4 mg (/ Sodium Chloride) 254 mls @ 15.24 mls/hr IV .[id number] PRN; Protocol; 4 MCG/MIN PRN Reason: TITRATE PER MD ORDER Last Admin: 04/11/18 21:58 Dose: 9 mcg/min, 34.29 mls/hr Chromium/Copper/Manganese/Zinc 1 ml/ Multivitamins/Vitamin C 10 ml/ Heparin Sodium ( Porcine) 1,000 units/ Amino Acids/Electrolytes/Dextrose 1,012 mls @ 42 mls/hr IV .Q24H ONE Stop: 04/12/18 17:59 Last Admin: 04/11/18 18:15 Dose: 42 mls/hr Multivitamins/Vitamin C (Multi-Delyn Liquid) 5 ml PO DAILY [facility] Last Admin: 04/11/18 10:27 Dose: 5 ml Pantoprazole Sodium (Protonix Inj) 40 mg IVP DAILY [facility] Last Admin: 04/11/18 10:26 Dose: 40 mg Silver Sulfadiazine (Silvadene 1%) 0 ea TOP DAILY [facility] Last Admin: 04/11/18 10:29 Dose: 1 applic Silver Sulfadiazine (Silvadene 1%) 0 ea TOP Q12 [facility] Last Admin: 04/11/18 21:59 Dose: 1 applic Vitamin A (Vitamin A & D Oint Ud Foilpak) 1 ea TOP Q8 PRN PRN Reason: Dry Lips Last Admin: 04/11/18 00:14 Dose: 1 ea - Labs Labs: 04/11/18 06:29 04/11/18 06:29 PT 11.2 SECONDS (9.7-12.2) 04/05/18 06:15 INR 1.0 04/05/18 06:15 APTT 29 SECONDS (21-34) 04/05/18 06:15
--- NOTE | 2018-04-11 22:43 | CP.PCM.PN ---
Subjective - Date & Time of Evaluation Date of Evaluation: 04/11/18 Time of Evaluation: 13:30 - Subjective Subjective: No complaints, appears comfortable Objective - Vital Signs/Intake and Output Vital Signs (last 24 hours): Temp Pulse Resp BP Pulse Ox 98.7 F 120 H 24 100/46 L 98 04/11/18 20:00 04/11/18 22:00 04/11/18 22:00 04/11/18 21:58 04/11/18 22:00 Intake and Output: 04/11/18 04/12/18 18:59 06:59 Intake Total 1235.0 659.6 Output Total 440 25 Balance 795.0 634.6 - Medications Medications: Current Medications Albuterol/Ipratropium (Duoneb 3 Mg/0.5 Mg (3 Ml) Ud) 3 ml INH RQ6 PRN PRN Reason: Shortness of Breath Last Admin: 04/10/18 14:28 Dose: 3 ml Ascorbic Acid (Vitamin C 500 Mg Tab) 500 mg PO BID [facility] Last Admin: 04/11/18 17:07 Dose: 500 mg Calcium Acetate (Phoslo) 1,334 mg PO TIDCC [facility] Last Admin: 04/11/18 17:07 Dose: 1,334 mg Ergocalciferol (Drisdol 50,000 Intl Units Cap) 1 cap PO Q7D [facility] Last Admin: 04/11/18 10:27 Dose: 1 cap Heparin Sodium (Porcine) (Heparin) 5,000 units SC Q12 [facility] Last Admin: 04/11/18 21:58 Dose: 5,000 units Ampicillin 2 gm/ Sodium (Chloride) 100 mls @ 200 mls/hr IVPB Q8H [facility] PRN Reason: Protocol Last Admin: 04/11/18 19:37 Dose: 200 mls/hr Meropenem 500 mg/ Sodium (Chloride) 100 mls @ 100 mls/hr IVPB Q12H [facility] PRN Reason: Protocol Stop: 04/14/18 23:31 Last Admin: 04/11/18 10:30 Dose: 100 mls/hr Norepinephrine Bitartrate 4 mg (/ Sodium Chloride) 254 mls @ 15.24 mls/hr IV .[id number] PRN; Protocol; 4 MCG/MIN PRN Reason: TITRATE PER MD ORDER Last Admin: 04/11/18 21:58 Dose: 9 mcg/min, 34.29 mls/hr Chromium/Copper/Manganese/Zinc 1 ml/ Multivitamins/Vitamin C 10 ml/ Heparin Sodium ( Porcine) 1,000 units/ Amino Acids/Electrolytes/Dextrose 1,012 mls @ 42 mls/hr IV .Q24H ONE Stop: 04/12/18 17:59 Last Admin: 04/11/18 18:15 Dose: 42 mls/hr Multivitamins/Vitamin C (Multi-Delyn Liquid) 5 ml PO DAILY [facility] Last Admin: 04/11/18 10:27 Dose: 5 ml Pantoprazole Sodium (Protonix Inj) 40 mg IVP DAILY [facility] Last Admin: 04/11/18 10:26 Dose: 40 mg Silver Sulfadiazine (Silvadene 1%) 0 ea TOP DAILY [facility] Last Admin: 04/11/18 10:29 Dose: 1 applic Silver Sulfadiazine (Silvadene 1%) 0 ea TOP Q12 [facility] Last Admin: 04/11/18 21:59 Dose: 1 applic Vitamin A (Vitamin A & D Oint Ud Foilpak) 1 ea TOP Q8 PRN PRN Reason: Dry Lips Last Admin: 04/11/18 22:26 Dose: 1 ea - Labs Labs: 04/11/18 06:29 04/11/18 06:29 PT 11.2 SECONDS (9.7-12.2) 04/05/18 06:15 INR 1.0 04/05/18 06:15 APTT 29 SECONDS (21-34) 04/05/18 06:15 - Head Exam Head Exam: ATRAUMATIC - Eye Exam Eye Exam: Normal appearance - ENT Exam ENT Exam: Mucous Membranes Dry - Respiratory Exam Respiratory Exam: NORMAL BREATHING PATTERN - Cardiovascular Exam Cardiovascular Exam: +S1, +S2 - GI/Abdominal Exam GI & Abdominal Exam: Normal Bowel Sounds Assessment and Plan (1) Leukocytosis Assessment & Plan: improving on antibiotics BCR/ABL negative, JAK2 negative likely secondary to infection; improving with antibiotics and wound debridement Status: Acute (2) Anemia Assessment & Plan: chronic disease and renal disease transfusion suppport PRN EPO per renal Status: Acute (3) Thrombocytopenia Assessment & Plan: ?sepsis related heparin Ab negative; not HIT okay to use heparin Status: Acute (4) Coagulopathy Assessment & Plan: nutritional Status: Acute
--- NOTE | 2018-04-12 01:14 | CP.PCM.PN ---
Subjective - Date & Time of Evaluation Date of Evaluation: 04/11/18 Time of Evaluation: 19:00 - Subjective Subjective: pt is improving, on ng tube feeding, ecchomyotic rash is improving too, pt is awake, off ventilator, on antibiotics Objective - Vital Signs/Intake and Output Vital Signs (last 24 hours): Temp Pulse Resp BP Pulse Ox 97.3 F L 114 H 22 104/59 L 100 04/12/18 00:00 04/12/18 00:00 04/12/18 00:00 04/11/18 23:40 04/12/18 00:00 Intake and Output: 04/11/18 04/12/18 18:59 06:59 Intake Total 1235.0 908.9 Output Total 440 30 Balance 795.0 878.9 - Medications Medications: Current Medications Albuterol/Ipratropium (Duoneb 3 Mg/0.5 Mg (3 Ml) Ud) 3 ml INH RQ6 PRN PRN Reason: Shortness of Breath Last Admin: 04/10/18 14:28 Dose: 3 ml Ascorbic Acid (Vitamin C 500 Mg Tab) 500 mg PO BID [facility] Last Admin: 04/11/18 17:07 Dose: 500 mg Calcium Acetate (Phoslo) 1,334 mg PO TIDCC [facility] Last Admin: 04/11/18 17:07 Dose: 1,334 mg Ergocalciferol (Drisdol 50,000 Intl Units Cap) 1 cap PO Q7D [facility] Last Admin: 04/11/18 10:27 Dose: 1 cap Heparin Sodium (Porcine) (Heparin) 5,000 units SC Q12 [facility] Last Admin: 04/11/18 21:58 Dose: 5,000 units Ampicillin 2 gm/ Sodium (Chloride) 100 mls @ 200 mls/hr IVPB Q8H [facility] PRN Reason: Protocol Last Admin: 04/11/18 19:37 Dose: 200 mls/hr Meropenem 500 mg/ Sodium (Chloride) 100 mls @ 100 mls/hr IVPB Q12H [facility] PRN Reason: Protocol Stop: 04/14/18 23:31 Last Admin: 04/11/18 23:32 Dose: 100 mls/hr Norepinephrine Bitartrate 4 mg (/ Sodium Chloride) 254 mls @ 15.24 mls/hr IV .[id number] PRN; Protocol; 4 MCG/MIN PRN Reason: TITRATE PER MD ORDER Last Titration: 04/11/18 23:31 Dose: 10 mcg/min, 38.1 mls/hr Chromium/Copper/Manganese/Zinc 1 ml/ Multivitamins/Vitamin C 10 ml/ Heparin Sodium ( Porcine) 1,000 units/ Amino Acids/Electrolytes/Dextrose 1,012 mls @ 42 mls/hr IV .Q24H ONE Stop: 04/12/18 17:59 Last Admin: 04/11/18 18:15 Dose: 42 mls/hr Multivitamins/Vitamin C (Multi-Delyn Liquid) 5 ml PO DAILY [facility] Last Admin: 04/11/18 10:27 Dose: 5 ml Pantoprazole Sodium (Protonix Inj) 40 mg IVP DAILY [facility] Last Admin: 04/11/18 10:26 Dose: 40 mg Silver Sulfadiazine (Silvadene 1%) 0 ea TOP DAILY [facility] Last Admin: 04/11/18 10:29 Dose: 1 applic Silver Sulfadiazine (Silvadene 1%) 0 ea TOP Q12 [facility] Last Admin: 04/11/18 21:59 Dose: 1 applic Vitamin A (Vitamin A & D Oint Ud Foilpak) 1 ea TOP Q8 PRN PRN Reason: Dry Lips Last Admin: 04/11/18 22:26 Dose: 1 ea - Labs Labs: 04/11/18 06:29 04/11/18 06:29 PT 11.2 SECONDS (9.7-12.2) 04/05/18 06:15 INR 1.0 04/05/18 06:15 APTT 29 SECONDS (21-34) 04/05/18 06:15 - Constitutional Appears: No Acute Distress - Head Exam Head Exam: ATRAUMATIC, NORMAL INSPECTION, NORMOCEPHALIC - Eye Exam Eye Exam: EOMI, Normal appearance, PERRL Pupil Exam: NORMAL ACCOMODATION, PERRL - Respiratory Exam Respiratory Exam: Clear to Ausculation Bilateral, NORMAL BREATHING PATTERN - Cardiovascular Exam Cardiovascular Exam: REGULAR RHYTHM, +S1, +S2. absent: Murmur - GI/Abdominal Exam GI & Abdominal Exam: Soft, Normal Bowel Sounds. absent: Tenderness Assessment and Plan (1) Acute respiratory failure Status: Acute (2) Acute tubular necrosis Status: Acute (3) Listeria septicemia Status: Acute (4) Leukocytosis Status: Acute
--- NOTE | 2018-04-12 03:44 | PN ---
DATE: 04/11/2018 SUBJECTIVE: The patient is awake. She has an NG tube at this time, but the nurse said she is still having a lot of pain in her tongue. I see that probably there is a blister on the tongue, dark blister. She is awake, alert. She offers no new complaints. PHYSICAL EXAMINATION: GENERAL: Cachectic looking female. VITAL SIGNS: Heart rate is 117, blood pressure 94/45 at the time I am dictating, respirations were 22. HEENT: Head is atraumatic. NECK: Supple. LUNGS: Clear. HEART: S1, S2. Tachycardic. ABDOMEN: She has put tightly on to cover those necrotic skin blistering ulcerations from upper abdomen to the legs. She has multiple dressings. There may be blistering, weeping of those skin necrolysis. She also has lower extremity chronic ulcerations which were debrided, which are separate from these. LABORATORY DATA: White count is 27.9 today, hemoglobin 8.5, hematocrit 25.6, platelet count is 178, neutrophils remain 90.4. Sodium is 139, potassium 3.8, chlorides are 102, CO2 is 23, BUN is 42, creatinine is 2.3. Alk phos is 146. They did a UA as there is some urine in the [place] catheter now and in the bag. Urine has 2+ leukocytes, urine wbc's 111 and urine culture is also sent. ASSESSMENT AND PLAN: At this time, she is on ampicillin and meropenem. I have discontinued the doxycycline. She remains on meropenem and ampicillin. She had doxycycline sensitive Staphylococcus aureus in the leg and coagulase-negative before on the wounds which were blistering, which we were trying to grow Vibrio, but it is negative for that. 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 She may benefit with hyperbaric. She is from [place], so we are hoping that she makes it back to [facility] and is treated there for further treatment and may utilize hyperbaric chamber which may help her with her legs and at this time, she is on ampicillin and Merrem. At some point, she does need ampicillin for three weeks. I have continued Merrem also as I was not able to give gentamicin as she has had renal insufficiency and she was intubated, and Merrem would cover for other infections. It is likely now that she is found to have Staphylococcus aureus which is methicillin-sensitive, will be also covered by, so we will continue that. Festus Camarena MD
[2018-04-12] MEDS: AMPicillin 2 GM in Sodium Chloride 100 ML IVPB SCH ×3 (04:12→20:00)
[2018-04-12] MEDS: Vitamins A & D Oint UD Foilpak TOP PRN (04:14)
[2018-04-12 06:14] LABS: BASO % 0.2 % (0.0-2.0); EOS % 0.2 % (0.0-4.0); HEMOGLOBIN 7.8 g/dL (11.0-16.0); LYMPH # 1.4 K/uL (1.0-4.3); LYMPH % 8.7 % (20.0-40.0); MEAN CELL VOLUME 84.2 fL (81.0-99.0); MEAN CORPUSCULAR HEMOGLOBIN 28.1 pg (27.0-31.0); MEAN CORPUSCULAR HGB CONC 33.4 g/dL (33.0-37.0); MEAN PLATELET VOLUME 8.4 fL (7.2-11.7); MONO # 1.1 K/uL (0.0-0.8); MONO % 6.6 % (0.0-10.0); NEUT # 13.9 K/uL (1.8-7.0); NEUT % 84.3 % (50.0-75.0); PLATELET COUNT 169 K/uL (130-400); RBC 2.76 Mil/uL (3.80-5.20); RED CELL DISTRIBUTION WIDTH 18.2 % (11.5-14.5); WHITE BLOOD COUNT 16.5 K/uL (4.8-10.8)
[2018-04-12 06:35] LABS: ALB/GLOB RATIO 0.9 (1.0-2.1); ALBUMIN 2.4 g/dL (3.5-5.0); CALCIUM 7.9 mg/dl (8.6-10.4)
[2018-04-12 08:20] LABS: ANISOCYTOSIS SLIGHT; BANDS 1 % (0-2); HYPOCHROMIC SLIGHT; LYMPHOCYTE 13 % (20-40); MONOCYTE 4 % (0-10); NEUTROPHIL 82 % (50-75); PLATELET ESTIMATE NORMAL (NORMAL); POLYCHROMIC SLIGHT; TOTAL CELLS COUNTED 100
[2018-04-12 09:26] LABS: ARTERIAL BLOOD GAS HCO3 23.5 mmol/L (21-28); ARTERIAL BLOOD GAS O2 SAT 98.8 % (95-98); ARTERIAL BLOOD GAS PCO2 35 mm/Hg (35-45); ARTERIAL BLOOD GAS PH 7.41 (7.35-7.45); ARTERIAL BLOOD GAS PO2 132 mm/Hg (80-100); ARTERIAL BLOOD GAS TCO2 23.3 mmol/L (22-28)
--- NOTE | 2018-04-12 10:01 | CP.PCM.PN ---
Subjective - Date & Time of Evaluation Date of Evaluation: 04/12/18 Time of Evaluation: 09:10 - Subjective Subjective: Surgery- Dr. Moore Patient seen and examined at bedside this AM. No acute events overnight. bilateral LE dressing Clean/Intact with some strikethrough. Patient is verbally communicating. AAOx3. Denies Chest pain, shortness of breath, nausea, vomiting Objective - Vital Signs/Intake and Output Vital Signs (last 24 hours): Temp Pulse Resp BP Pulse Ox 97.4 F L 114 H 20 114/63 99 04/12/18 04:00 04/12/18 08:05 04/12/18 06:00 04/12/18 05:40 04/12/18 06:00 Intake and Output: 04/12/18 04/12/18 06:59 18:59 Intake Total 1805.4 Output Total 680 Balance 1125.4 - Medications Medications: Current Medications Albuterol/Ipratropium (Duoneb 3 Mg/0.5 Mg (3 Ml) Ud) 3 ml INH RQ6 PRN PRN Reason: Shortness of Breath Last Admin: 04/10/18 14:28 Dose: 3 ml Ascorbic Acid (Vitamin C 500 Mg Tab) 500 mg PO BID [facility] Last Admin: 04/11/18 17:07 Dose: 500 mg Calcium Acetate (Phoslo) 1,334 mg PO TIDCC [facility] Last Admin: 04/11/18 17:07 Dose: 1,334 mg Ergocalciferol (Drisdol 50,000 Intl Units Cap) 1 cap PO Q7D [facility] Last Admin: 04/11/18 10:27 Dose: 1 cap Heparin Sodium (Porcine) (Heparin) 5,000 units SC Q12 [facility] Last Admin: 04/11/18 21:58 Dose: 5,000 units Ampicillin 2 gm/ Sodium (Chloride) 100 mls @ 200 mls/hr IVPB Q8H [facility] PRN Reason: Protocol Last Admin: 04/12/18 04:12 Dose: 200 mls/hr Meropenem 500 mg/ Sodium (Chloride) 100 mls @ 100 mls/hr IVPB Q12H [facility] PRN Reason: Protocol Stop: 04/14/18 23:31 Last Admin: 04/11/18 23:32 Dose: 100 mls/hr Norepinephrine Bitartrate 4 mg (/ Sodium Chloride) 254 mls @ 15.24 mls/hr IV .[id number] PRN; Protocol; 4 MCG/MIN PRN Reason: TITRATE PER MD ORDER Last Admin: 04/12/18 05:27 Dose: 10 mcg/min, 38.1 mls/hr Chromium/Copper/Manganese/Zinc 1 ml/ Multivitamins/Vitamin C 10 ml/ Heparin Sodium ( Porcine) 1,000 units/ Amino Acids/Electrolytes/Dextrose 1,012 mls @ 42 mls/hr IV .Q24H ONE Stop: 04/12/18 17:59 Last Admin: 04/11/18 18:15 Dose: 42 mls/hr Multivitamins/Vitamin C (Multi-Delyn Liquid) 5 ml PO DAILY [facility] Last Admin: 04/11/18 10:27 Dose: 5 ml Pantoprazole Sodium (Protonix Inj) 40 mg IVP DAILY [facility] Last Admin: 04/11/18 10:26 Dose: 40 mg Silver Sulfadiazine (Silvadene 1%) 0 ea TOP DAILY [facility] Last Admin: 04/11/18 10:29 Dose: 1 applic Silver Sulfadiazine (Silvadene 1%) 0 ea TOP Q12 [facility] Last Admin: 04/11/18 21:59 Dose: 1 applic Vitamin A (Vitamin A & D Oint Ud Foilpak) 1 ea TOP Q8 PRN PRN Reason: Dry Lips Last Admin: 04/12/18 04:14 Dose: 1 ea - Labs Labs: 04/12/18 06:01 04/12/18 06:01 PT 11.2 SECONDS (9.7-12.2) 04/05/18 06:15 INR 1.0 04/05/18 06:15 APTT 29 SECONDS (21-34) 04/05/18 06:15 - Constitutional Appears: Non-toxic, No Acute Distress, Chronically Ill - Head Exam Head Exam: ATRAUMATIC - Eye Exam Eye Exam: EOMI. absent: Scleral icterus - ENT Exam ENT Exam: Mucous Membranes Moist - Respiratory Exam Respiratory Exam: NORMAL BREATHING PATTERN. absent: Accessory Muscle Use, Respiratory Distress - Cardiovascular Exam Cardiovascular Exam: +S1, +S2. absent: Bradycardia, Tachycardia - GI/Abdominal Exam GI & Abdominal Exam: Soft, Hernia. absent: Tenderness - Neurological Exam Neurological Exam: Alert, Awake, Oriented x3 - Skin Skin Exam: Rash, Vesicles, Warm Assessment and Plan - Assessment and Plan (Free Text) Assessment: 52F s/p bilateral LE debridement of nectrotic skin, soft tissue, and muscle POD #6 Plan: - Final path shows necrotic tissue; bacterial origin - silvadene and dry dressing ontop - cleared from surgical standpoint to transfer to burn unit tomorrow - d/w Dr. Moore surgical attending
--- NOTE | 2018-04-12 10:28 | CP.CCUPN ---
<Mik Huynh - Last Filed: 04/12/18 12:38> CCU Subjective - Physician Review Subjective (Free Text): Patient has been and examined. Patient extubated on 04/07. Patient has been seen and examined at bedside. She answers "no" wit a head shake when asked if feeling well today but cannot verbalize why. Patient is very lethargic today. ROS cannot be obtained. Patient desatted in AM requiring BiPAP CCU Objective - Vital Signs / Intake & Output Vital Signs (Last 4 hours): Vital Signs Pulse 04/12/18 08:05 114 H Intake and Output (Last 8hrs): Intake & Output 04/11/18 04/12/18 04/12/18 22:59 06:59 14:59 Intake Total 991.6 1145.8 Output Total 525 155 Balance 466.6 990.8 Weight 123 lb 7.342 oz Intake: IV 254 254 Intake, IV Amount 457.6 711.8 Left Distal Port Internal 210 378 Jugular Left Proximal Port 247.6 333.8 Internal Jugular Tube Feeding 180 180 Other 100 Output: Gastric Amount 510 120 Stomach 510 120 Urine 15 35 Urethral ([place]) 15 35 Emesis 0 Other: # Voids Urethral ([place]) 75 # Bowel Movements 0 - Physical Exam Head: Positive for: Atraumatic Mouth: Positive for: Moist Mucous Membranes Respiratory/Chest: Positive for: Good Air Exchange. Negative for: Respiratory Distress, Accessory Muscle Use Cardiovascular: Positive for: Normal S1, S2, Gallop Abdomen: Positive for: Distention, Other (abdomen reveals a 5 cm circular bulb no Bowel sounds in bulb). Negative for: Tenderness, Rebound, Guarding Upper Extremity: Positive for: Edema. Negative for: Cyanosis Lower Extremity: Positive for: Edema, Other (non-blanching ecchymotic lesions covering more than 25 percent of lower extremity and abdomen. S/P debridement with Dressing b/L. ) Neurological: Positive for: GCS=15 (15) Psychiatric: Positive for: Alert, Oriented x 3 - Medications Active Medications: Active Medications Generic Name Dose Route Start Last Admin Trade Name Freq PRN Reason Stop Dose Admin Albuterol/Ipratropium 3 ml 04/03/18 09:30 04/10/18 14:28 Duoneb 3 Mg/0.5 Mg (3 Ml) Ud INH 3 ml RQ6 PRN Administration Shortness of Breath Ascorbic Acid 500 mg 04/02/18 10:00 04/11/18 17:07 Vitamin C 500 Mg Tab PO 500 mg BID NOLAN Administration Calcium Acetate 1,334 mg 04/05/18 09:32 04/11/18 17:07 Phoslo PO 1,334 mg TIDCC NOLAN Administration Ergocalciferol 1 cap 04/04/18 10:45 04/11/18 10:27 Drisdol 50,000 Intl Units Cap PO 1 cap Q7D NOLAN Administration Heparin Sodium (Porcine) 5,000 units 04/02/18 22:00 04/11/18 21:58 Heparin SC 5,000 units Q12 NOLAN Administration Ampicillin 2 gm/ Sodium 100 mls @ 200 mls/hr 04/06/18 12:00 04/12/18 04:12 Chloride IVPB 200 mls/hr Q8H NOLAN Administration Protocol Meropenem 500 mg/ Sodium 100 mls @ 100 mls/hr 04/07/18 23:30 04/11/18 23:32 Chloride IVPB 04/14/18 23:31 100 mls/hr Q12H NOLAN Administration Protocol Norepinephrine Bitartrate 4 mg 254 mls @ 15.24 mls/hr 04/10/18 07:15 05:27 / Sodium Chloride IV 10 mcg/min .[id number] PRN 38.1 mls/hr TITRATE PER MD ORDER Administration Protocol 4 MCG/MIN Chromium/Copper/Manganese/Zinc 1,012 mls @ 42 mls/hr 04/11/18 18:00 04/11/18 18:15 1 ml/ Multivitamins/Vitamin C IV 04/12/18 17:59 42 mls/hr 10 ml/ Heparin Sodium ( .Q24H ONE Administration Porcine) 1,000 units/ Amino Acids/Electrolytes/Dextrose Multivitamins/Vitamin C 5 ml 04/03/18 10:15 04/11/18 10:27 Multi-Delyn Liquid PO 5 ml DAILY NOLAN Administration Pantoprazole Sodium 40 mg 04/02/18 10:00 04/11/18 10:26 Protonix Inj IVP 40 mg DAILY NOLAN Administration Silver Sulfadiazine 0 ea 04/08/18 10:00 04/11/18 10:29 Silvadene 1% TOP 1 applic DAILY NOLAN Administration Silver Sulfadiazine 0 ea 04/11/18 10:00 04/11/18 21:59 Silvadene 1% TOP 1 applic Q12 NOLAN Administration Vitamin A 1 ea 04/10/18 23:00 04/12/18 04:14 Vitamin A & D Oint Ud Foilpak TOP 1 ea Q8 PRN Administration Dry Lips - Patient Studies Lab Studies: Microbiology Studies 04/11/18 12:11 Urine Culture - Final Urine No Growth (<1,000 CFU/ML) Lab Studies 04/12/18 04/12/18 04/12/18 Range/Units 09:23 06:01 06:01 WBC 16.5 H (4.8-10.8) K/uL RBC 2.76 L (3.80-5.20) Mil/uL Hgb 7.8 L (11.0-16.0) g/dL Hct 23.2 L (34.0-47.0) % MCV 84.2 (81.0-99.0) fL MCH 28.1 (27.0-31.0) pg MCHC 33.4 (33.0-37.0) g/dL RDW 18.2 H (11.5-14.5) % Plt Count 169 (130-400) K/uL MPV 8.4 (7.2-11.7) fL Neut % (Auto) 84.3 H (50.0-75.0) % Lymph % (Auto) 8.7 L (20.0-40.0) % [place] % (Auto) 6.6 (0.0-10.0) % Eos % (Auto) 0.2 (0.0-4.0) % Baso % (Auto) 0.2 (0.0-2.0) % Neut # (Auto) 13.9 H (1.8-7.0) K/uL Lymph # (Auto) 1.4 (1.0-4.3) K/uL [place] # (Auto) 1.1 H (0.0-0.8) K/uL Eos # (Auto) 0.0 (0.0-0.7) K/uL Baso # (Auto) 0.0 (0.0-0.2) K/uL Neutrophils % (Manual) 82 H (50-75) % Band Neutrophils % 1 (0-2) % Lymphocytes % (Manual) 13 L (20-40) % Monocytes % (Manual) 4 (0-10) % Platelet Estimate Normal (NORMAL) Polychromasia Slight Hypochromasia (manual) Slight Anisocytosis (manual) Slight Puncture Site Rb pCO2 35 (35-45) mm/Hg pO2 132 H (80-100) mm/Hg HCO3 23.5 (21-28) mmol/L ABG pH 7.41 (7.35-7.45) ABG Total CO2 23.3 (22-28) mmol/L ABG O2 Saturation 98.8 H (95-98) % ABG Base Excess -1.9 (-2.0-3.0) mmol/L Jann Test Na ABG Potassium 3.5 L (3.6-5.2) mmol/L A-a O2 Difference 109.0 mm/Hg Respiratory Index 0.8 Glucose 171 H (65-105) mg/dl Lactate 2.3 H (0.7-2.1) mmol/L Vent Mode Bipap FiO2 40.0 % Inspiratory BiPAP 10 Expiratory BiPAP 5 Sodium 140.0 141 (132-148) mmol/L Potassium 3.7 (3.6-5.2) mmol/L Chloride 108.0 H 105 (98-107) mmol/L Carbon Dioxide 22 (22-30) mmol/L Anion Gap 18 (10-20) BUN 56 H (7-17) mg/dL Creatinine 2.4 H (0.7-1.2) mg/dL Est GFR ( Amer) 26 Est GFR (Non-Af Amer) 21 POC Glucose (mg/dL) (65-110) mg/dL Random Glucose 145 H (65-105) mg/dL Calcium 7.9 L (8.6-10.4) mg/dl Total Bilirubin 0.9 (0.2-1.3) mg/dL AST 18 (14-36) U/L ALT 30 (9-52) U/L Alkaline Phosphatase 142 H (38-126) U/L Total Protein 5.2 L (6.3-8.3) g/dL Albumin 2.4 L (3.5-5.0) g/dL Globulin 2.8 (2.2-3.9) gm/dL Albumin/Globulin Ratio 0.9 L (1.0-2.1) Arterial Blood Potassium 3.5 L (3.6-5.2) mmol/L Urine Color (YELLOW) Urine Clarity (Clear) Urine pH (5.0-8.0) Ur Specific [place] (1.003-1.030) Urine Protein (NEGATIVE) mg/dL Urine Glucose (UA) (Normal) mg/dL Urine Ketones (NEGATIVE) mg/dL Urine Blood (NEGATIVE) Urine Nitrate (NEGATIVE) Urine Bilirubin (NEGATIVE) Urine Urobilinogen (0.2-1.0) mg/dL Ur Leukocyte Esterase (Negative) Arnoldo/uL Urine WBC (Auto) (0-5) /hpf Urine RBC (Auto) (0-3) /hpf Urine WBC Clumps (Auto) (NONE) /hpf Ur Squamous Epith Cells (0-5) /hpf Amorphous Sediment (<OCC) /ul Urine Bacteria (<OCC) ANCA Screen (NEGATIVE) Proteinase 3 (PR3) (<1.0) AI Myeloperoxidase Ab (<1.0) AI 04/12/18 04/12/18 04/11/18 Range/Units 05:24 00:14 17:43 WBC (4.8-10.8) K/uL RBC (3.80-5.20) Mil/uL Hgb (11.0-16.0) g/dL Hct (34.0-47.0) % MCV (81.0-99.0) fL MCH (27.0-31.0) pg MCHC (33.0-37.0) g/dL RDW (11.5-14.5) % Plt Count (130-400) K/uL MPV (7.2-11.7) fL Neut % (Auto) (50.0-75.0) % Lymph % (Auto) (20.0-40.0) % [place] % (Auto) (0.0-10.0) % Eos % (Auto) (0.0-4.0) % Baso % (Auto) (0.0-2.0) % Neut # (Auto) (1.8-7.0) K/uL Lymph # (Auto) (1.0-4.3) K/uL [place] # (Auto) (0.0-0.8) K/uL Eos # (Auto) (0.0-0.7) K/uL Baso # (Auto) (0.0-0.2) K/uL Neutrophils % (Manual) (50-75) % Band Neutrophils % (0-2) % Lymphocytes % (Manual) (20-40) % Monocytes % (Manual) (0-10) % Platelet Estimate (NORMAL) Polychromasia Hypochromasia (manual) Anisocytosis (manual) Puncture Site pCO2 (35-45) mm/Hg pO2 (80-100) mm/Hg HCO3 (21-28) mmol/L ABG pH (7.35-7.45) ABG Total CO2 (22-28) mmol/L ABG O2 Saturation (95-98) % ABG Base Excess (-2.0-3.0) mmol/L Jann Test ABG Potassium (3.6-5.2) mmol/L A-a O2 Difference mm/Hg Respiratory Index Glucose (65-105) mg/dl Lactate (0.7-2.1) mmol/L Vent Mode FiO2 % Inspiratory BiPAP Expiratory BiPAP Sodium (132-148) mmol/L Potassium (3.6-5.2) mmol/L Chloride (98-107) mmol/L Carbon Dioxide (22-30) mmol/L Anion Gap (10-20) BUN (7-17) mg/dL Creatinine (0.7-1.2) mg/dL Est GFR ( Amer) Est GFR (Non-Af Amer) POC Glucose (mg/dL) 167 H 170 H 117 H (65-110) mg/dL Random Glucose (65-105) mg/dL Calcium (8.6-10.4) mg/dl Total Bilirubin (0.2-1.3) mg/dL AST (14-36) U/L ALT (9-52) U/L Alkaline Phosphatase (38-126) U/L Total Protein (6.3-8.3) g/dL Albumin (3.5-5.0) g/dL Globulin (2.2-3.9) gm/dL Albumin/Globulin Ratio (1.0-2.1) Arterial Blood Potassium (3.6-5.2) mmol/L Urine Color (YELLOW) Urine Clarity (Clear) Urine pH (5.0-8.0) Ur Specific [place] (1.003-1.030) Urine Protein (NEGATIVE) mg/dL Urine Glucose (UA) (Normal) mg/dL Urine Ketones (NEGATIVE) mg/dL Urine Blood (NEGATIVE) Urine Nitrate (NEGATIVE) Urine Bilirubin (NEGATIVE) Urine Urobilinogen (0.2-1.0) mg/dL Ur Leukocyte Esterase (Negative) Arnoldo/uL Urine WBC (Auto) (0-5) /hpf Urine RBC (Auto) (0-3) /hpf Urine WBC Clumps (Auto) (NONE) /hpf Ur Squamous Epith Cells (0-5) /hpf Amorphous Sediment (<OCC) /ul Urine Bacteria (<OCC) ANCA Screen (NEGATIVE) Proteinase 3 (PR3) (<1.0) AI Myeloperoxidase Ab (<1.0) AI 04/11/18 04/11/18 04/06/18 Range/Units 12:16 12:11 12:12 WBC (4.8-10.8) K/uL RBC (3.80-5.20) Mil/uL Hgb (11.0-16.0) g/dL Hct (34.0-47.0) % MCV (81.0-99.0) fL MCH (27.0-31.0) pg MCHC (33.0-37.0) g/dL RDW (11.5-14.5) % Plt Count (130-400) K/uL MPV (7.2-11.7) fL Neut % (Auto) (50.0-75.0) % Lymph % (Auto) (20.0-40.0) % [place] % (Auto) (0.0-10.0) % Eos % (Auto) (0.0-4.0) % Baso % (Auto) (0.0-2.0) % Neut # (Auto) (1.8-7.0) K/uL Lymph # (Auto) (1.0-4.3) K/uL [place] # (Auto) (0.0-0.8) K/uL Eos # (Auto) (0.0-0.7) K/uL Baso # (Auto) (0.0-0.2) K/uL Neutrophils % (Manual) (50-75) % Band Neutrophils % (0-2) % Lymphocytes % (Manual) (20-40) % Monocytes % (Manual) (0-10) % Platelet Estimate (NORMAL) Polychromasia Hypochromasia (manual) Anisocytosis (manual) Puncture Site pCO2 (35-45) mm/Hg pO2 (80-100) mm/Hg HCO3 (21-28) mmol/L ABG pH (7.35-7.45) ABG Total CO2 (22-28) mmol/L ABG O2 Saturation (95-98) % ABG Base Excess (-2.0-3.0) mmol/L Jann Test ABG Potassium (3.6-5.2) mmol/L A-a O2 Difference mm/Hg Respiratory Index Glucose (65-105) mg/dl Lactate (0.7-2.1) mmol/L Vent Mode FiO2 % Inspiratory BiPAP Expiratory BiPAP Sodium (132-148) mmol/L Potassium (3.6-5.2) mmol/L Chloride (98-107) mmol/L Carbon Dioxide (22-30) mmol/L Anion Gap (10-20) BUN (7-17) mg/dL Creatinine (0.7-1.2) mg/dL Est GFR ( Amer) Est GFR (Non-Af Amer) POC Glucose (mg/dL) 132 H (65-110) mg/dL Random Glucose (65-105) mg/dL Calcium (8.6-10.4) mg/dl Total Bilirubin (0.2-1.3) mg/dL AST (14-36) U/L ALT (9-52) U/L Alkaline Phosphatase (38-126) U/L Total Protein (6.3-8.3) g/dL Albumin (3.5-5.0) g/dL Globulin (2.2-3.9) gm/dL Albumin/Globulin Ratio (1.0-2.1) Arterial Blood Potassium (3.6-5.2) mmol/L Urine Color [place] (YELLOW) Urine Clarity Hazy (Clear) Urine pH 5.0 (5.0-8.0) Ur Specific [place] 1.020 (1.003-1.030) Urine Protein 1+ H (NEGATIVE) mg/dL Urine Glucose (UA) 1+ (Normal) mg/dL Urine Ketones Trace (NEGATIVE) mg/dL Urine Blood 2+ H (NEGATIVE) Urine Nitrate Negative (NEGATIVE) Urine Bilirubin Negative (NEGATIVE) Urine Urobilinogen 2.0 H (0.2-1.0) mg/dL Ur Leukocyte Esterase 2+ H (Negative) Arnoldo/uL Urine WBC (Auto) 111 H (0-5) /hpf Urine RBC (Auto) 2 (0-3) /hpf Urine WBC Clumps (Auto) Occ H (NONE) /hpf Ur Squamous Epith Cells 3 (0-5) /hpf Amorphous Sediment Few H (<OCC) /ul Urine Bacteria Occ H (<OCC) ANCA Screen Negative (NEGATIVE) Proteinase 3 (PR3) <1.0 (<1.0) AI Myeloperoxidase Ab <1.0 (<1.0) AI Laboratory Results - last 24 hr 04/06/18 04/11/18 04/11/18 12:12 12:11 12:16 WBC RBC Hgb Hct MCV MCH MCHC RDW Plt Count MPV Neut % (Auto) Lymph % (Auto) [place] % (Auto) Eos % (Auto) Baso % (Auto) Neut # (Auto) Lymph # (Auto) [place] # (Auto) Eos # (Auto) Baso # (Auto) Neutrophils % (Manual) Band Neutrophils % Lymphocytes % (Manual) Monocytes % (Manual) Platelet Estimate Polychromasia Hypochromasia (manual) Anisocytosis (manual) Puncture Site pCO2 pO2 HCO3 ABG pH ABG Total CO2 ABG O2 Saturation ABG Base Excess Jann Test ABG Potassium A-a O2 Difference Respiratory Index Glucose Lactate Vent Mode FiO2 Inspiratory BiPAP Expiratory BiPAP Sodium Potassium Chloride Carbon Dioxide Anion Gap BUN Creatinine Est GFR ( Amer) Est GFR (Non-Af Amer) POC Glucose (mg/dL) 132 H Random Glucose Calcium Total Bilirubin AST ALT Alkaline Phosphatase Total Protein Albumin Globulin Albumin/Globulin Ratio Arterial Blood Potassium Urine Color Lara Urine Clarity Hazy Urine pH 5.0 Ur Specific [place] 1.020 Urine Protein 1+ H Urine Glucose (UA) 1+ Urine Ketones Trace Urine Blood 2+ H Urine Nitrate Negative Urine Bilirubin Negative Urine Urobilinogen 2.0 H Ur Leukocyte Esterase 2+ H Urine WBC (Auto) 111 H Urine RBC (Auto) 2 Urine WBC Clumps (Auto) Occ H Ur Squamous Epith Cells 3 Amorphous Sediment Few H Urine Bacteria Occ H ANCA Screen Negative Proteinase 3 (PR3) <1.0 Myeloperoxidase Ab <1.0 05/22/18 05/23/18 05/23/18 17:43 00:14 05:24 WBC RBC Hgb Hct MCV MCH MCHC RDW Plt Count MPV Neut % (Auto) Lymph % (Auto) [place] % (Auto) Eos % (Auto) Baso % (Auto) Neut # (Auto) Lymph # (Auto) [place] # (Auto) Eos # (Auto) Baso # (Auto) Neutrophils % (Manual) Band Neutrophils % Lymphocytes % (Manual) Monocytes % (Manual) Platelet Estimate Polychromasia Hypochromasia (manual) Anisocytosis (manual) Puncture Site pCO2 pO2 HCO3 ABG pH ABG Total CO2 ABG O2 Saturation ABG Base Excess Jann Test ABG Potassium A-a O2 Difference Respiratory Index Glucose Lactate Vent Mode FiO2 Inspiratory BiPAP Expiratory BiPAP Sodium Potassium Chloride Carbon Dioxide Anion Gap BUN Creatinine Est GFR ( Amer) Est GFR (Non-Af Amer) POC Glucose (mg/dL) 117 H 170 H 167 H Random Glucose Calcium Total Bilirubin AST ALT Alkaline Phosphatase Total Protein Albumin Globulin Albumin/Globulin Ratio Arterial Blood Potassium Urine Color Urine Clarity Urine pH Ur Specific [place] Urine Protein Urine Glucose (UA) Urine Ketones Urine Blood Urine Nitrate Urine Bilirubin Urine Urobilinogen Ur Leukocyte Esterase Urine WBC (Auto) Urine RBC (Auto) Urine WBC Clumps (Auto) Ur Squamous Epith Cells Amorphous Sediment Urine Bacteria ANCA Screen Proteinase 3 (PR3) Myeloperoxidase Ab 04/12/18 04/12/18 04/12/18 06:01 06:01 09:23 WBC 16.5 H RBC 2.76 L Hgb 7.8 L Hct 23.2 L MCV 84.2 MCH 28.1 MCHC 33.4 RDW 18.2 H Plt Count 169 MPV 8.4 Neut % (Auto) 84.3 H Lymph % (Auto) 8.7 L [place] % (Auto) 6.6 Eos % (Auto) 0.2 Baso % (Auto) 0.2 Neut # (Auto) 13.9 H Lymph # (Auto) 1.4 [place] # (Auto) 1.1 H Eos # (Auto) 0.0 Baso # (Auto) 0.0 Neutrophils % (Manual) 82 H Band Neutrophils % 1 Lymphocytes % (Manual) 13 L Monocytes % (Manual) 4 Platelet Estimate Normal Polychromasia Slight Hypochromasia (manual) Slight Anisocytosis (manual) Slight Puncture Site Rb pCO2 35 pO2 132 H HCO3 23.5 ABG pH 7.41 ABG Total CO2 23.3 ABG O2 Saturation 98.8 H ABG Base Excess -1.9 Jann Test Na ABG Potassium 3.5 L A-a O2 Difference 109.0 Respiratory Index 0.8 Glucose 171 H Lactate 2.3 H Vent Mode Bipap FiO2 40.0 Inspiratory BiPAP 10 Expiratory BiPAP 5 Sodium 141 140.0 Potassium 3.7 Chloride 105 108.0 H Carbon Dioxide 22 Anion Gap 18 BUN 56 H Creatinine 2.4 H Est GFR ( Amer) 26 Est GFR (Non-Af Amer) 21 POC Glucose (mg/dL) Random Glucose 145 H Calcium 7.9 L Total Bilirubin 0.9 AST 18 ALT 30 Alkaline Phosphatase 142 H Total Protein 5.2 L Albumin 2.4 L Globulin 2.8 Albumin/Globulin Ratio 0.9 L Arterial Blood Potassium 3.5 L Urine Color Urine Clarity Urine pH Ur Specific [place] Urine Protein Urine Glucose (UA) Urine Ketones Urine Blood Urine Nitrate Urine Bilirubin Urine Urobilinogen Ur Leukocyte Esterase Urine WBC (Auto) Urine RBC (Auto) Urine WBC Clumps (Auto) Ur Squamous Epith Cells Amorphous Sediment Urine Bacteria ANCA Screen Proteinase 3 (PR3) Myeloperoxidase Ab Fingerstick Blood Sugar Results: 167 Critical Care Progress Note - Nutrition Nutrition: Nutrition Category Date Time Status NPO Diet [DIET] Diets 04/06/18 Breakfast Active Assessment/Plan - Assessment and Plan (Free Text) Assessment: 52 year old female with Unspecified medical history who presented to [facility] ICU from [facility] Room. [place]. On Admission patient was found to have leukocytosis and significant skin excoriations, foul smelling ulcer in the right leg, multiple ecchymosis in the abdomen/groin area/lower extremity, necrotic tissue on lower extremity and bullae. Patiently found to be severely Anemic and was transfused a total of 5 PRBC's. Patient is edematous in the upper and lower extremities b/ l. 04/04: Transfused 2 Units of PRBC's 04/06: Lower extremity Wound Debridement, Began Discussion of Transfer to Burn Unit. 04/07: Extubated. 04/11: Patient accepted to to [facility] under Dr. Neal De La Rosa. Demographics Sheet faxed. Resident at [facility] asked for CD's of imaging, surgery reports, all cultures, hospital course, and nurse report. Patient to be transferred tomorrow morning. Plan: Neuro GCS: 15 Sedation: None Lethargic today Cardio: ECHO (04/02): Shows Normal EF (55%) A: Hypotension Pressors: Lovephed PRN Pulm: CXR (04/04): Endotracheal and NG tube in place. Mild venous congestion. Bilateral hilar prominence. Tortuous ectatic aorta. Biapical pleural thickening with upper lobe granulomatous changes. CXR (04/10): New Right infrahilar atelectasis. Otherwise no change. CXR (04/11): Possible very small bilateral pleural effusion. ABG (04/04): pH-7.56, C02-24, 02-188, HCO3-24.6 ABG (04/05): pH-7.56, C02 - 26, 02-157, HCO3-23.9 ABG ( 04/07): pH-7.52, C02 - 27, 02 - 187, HCO3-24.6 Extubated on 04/07. Hypoxic Today, Placed on BIPAP 08/25, 12 RR, 40%FiO2 GI A: Elevated LFT's (Resolved) Abd/Pelvis CT (04/02/18): Prominent gallbladder distention with cholelithiasis. Clinically correlate for potential cholecystitis. Possible ileus or early distal small bowel obstruction. Potential segmental colitis in various large-bowel segments though this is limited in diagnostic power due to collapse of the majority of the large bowel. Mild bilateral hydroureteronephrosis potentially on the basis of enlarged myomatous uterus. Potential infectious or inflammatory process affecting the uterus. Myomatous uterine changes also noted. Anasarca and trace ascites. Hepatitis Panel - NEGATIVE OBGYN A: Uterine Mass TV Ultrasound to be done today. Renal A: LULA , Hypocalcemia, Hyperphosphetemia, Hyponatremia Complement Studies per ID - NEGATIVE [place] -137 Lambda-94, Lupus, MicroAlbumin w/ Cr - Elevated Total Protein - Elevated , Serum Immunifixation Detected. Renal US (04/04): B/L mild hyronephrosis. small non-obstructing renal calculi in Right Kidney phos binders, nephrovite, vit D, iron supplements per Nephro urology consult for b/l hydronephrosis per Nephro, Recs appreciated. Hemodialysis MWF, Dialysis Today. via permacath (place don 04/06) Monitor Electrolytes Heme/Onc A: Iron Def. Anemia s/p 5 Units of PRBCs, thromboycytopenia (Resolved). 2 Units of PRBC's transfused on 04/04/18. Hematology/Onc Consulted (Dr. Ospina), Recs Appreciated Myeloproliferative Disorder RUle OUT. BCR/ABL1 GENE PCR - Not Detected, MACY - Negative? , ASO- Negative HgB Stable CA 125 - 90.6 , CA19-9 - 286 , CEA - 5.7. All ordered tumor markers elevated. DIC Workup to rule out Purpura Fulminans -Fibrinogen (WNL) Fibrin Split Products - Order Cancelled in AM (Unknown who) , Pt/PTT, Retic Count (WNL), Haptoglobin (Elevated), D- Dimer (Elevated, likely due to Malignancy) Haptoglobin - 346.1 (Elevated) HIT - NEGATIVE EPO per Renal. 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 1 Unit of PRBC's Ordered. Rheumatology MAYI 6 - POSITIVE, MAYI Titer - 1:40, MAYI Pattern - Speckled Rh Factor - NEGATIVE ID A: Leukocytosis (Improving), Purpura Fulminans?, UTI ID Consulted (Dr. Camarena, Recs appreciated) Lower Ext CT (04/02): Anasarca type pattern is favored over fasciitis of the bilateral lower extremities diffusely and is favored over fasciitis the fasciitis is still not excluded, a CT diagnosis is difficult to make without intravenous contrast. Necrotizing fasciitis is not identified however. Further clinical correlation is recommended. Blood Cultures (04/01 [facility]): POSITIVE for Listeria Monocytogenes Blood Cultures (04/02): NEGATIVE Wound Cultures (04/02): Left and Right leg NEGATIVE (Prelim) ESR (04/03): WNL Hepatitis Panel - NEGATIVE Anitbiotics: Cont. Doxycylcine, Meropenem, Ampicillin. General Surgery/Vascular Surgery Consulted, Recs Appreciated. Stool for Vibrio Cholera per ID Wound Cultures - POSITIVE for Coagulase Negative Staph - Likely contamination. DIC Workup showed Elevated Haptoglobin and elevated D-dimer. UA (04/11), positive for Leuk Es and WBCs. STAT urine Culture ordered. Integumentary A: Status post wound debridement of Lower Extremity on 04/07. Will discuss will family transfer to Burn Unit for better management of extensive skin wounds. Silvadene w/ Xeroform for Diffuse Wounds. Debridement Speciment - "Fragments of Fibroconnective Tissue with Acute and chronic inflammation, abscess formation, granulation tissue, bacaterial colonies and reactive tissue) Vitamin C BID Endo A: Vitamin D Def. 50,000 IU Q7D MSK A: Deconditioning PT/OT Proph Protonix IV Daily Heparin Q12 Dispo: Will F/U with family regarding places they want patient to be transferred. Mother was called in AM and message was left with her to call back. Patient seen and discussed with ICU Attending Mik Huynh, PGY-1 <Yomi Mckeon S - Last Filed: 04/12/18 17:46> CCU Objective - Vital Signs / Intake & Output Vital Signs (Last 4 hours): Vital Signs Temp Pulse Resp BP Pulse Ox 04/12/18 17:00 97.7 F 04/12/18 16:08 97 H 18 110/67 100 04/12/18 16:00 97.7 F 94 H 16 100 04/12/18 15:41 95 H 04/12/18 15:07 97 H 17 119/64 100 04/12/18 15:00 95 H 16 100 04/12/18 14:07 92 H 20 108/67 100 04/12/18 14:00 95 H 17 100 Intake and Output (Last 8hrs): Intake & Output 04/12/18 04/12/18 04/12/18 06:59 14:59 22:59 Intake Total 1145.8 1201.5 298.5 Output Total 155 755 755 Balance 990.8 446.5 -456.5 Weight 123 lb 7.342 oz Intake: IV 254 Intake, IV Amount 711.8 756.5 238.5 Left Distal Port Internal 378 294 126 Jugular Left Medial Port Internal 200 Jugular Left Proximal Port 333.8 262.5 112.5 Internal Jugular Tube Feeding 180 120 60 Blood Product 325 Red Blood Cells Cpd As1 325 Lr Unit [id number] Output: Gastric Amount 120 Stomach 120 Drainage 750 750 HD fluid removal 750 750 Urine 35 5 5 Urethral ([place]) 35 5 5 - Medications Active Medications: Active Medications Generic Name Dose Route Start Last Admin Trade Name Freq PRN Reason Stop Dose Admin Albuterol/Ipratropium 3 ml 04/03/18 09:30 04/10/18 14:28 Duoneb 3 Mg/0.5 Mg (3 Ml) Ud INH 3 ml RQ6 PRN Administration Shortness of Breath Ascorbic Acid 500 mg 04/02/18 10:00 04/12/18 10:50 Vitamin C 500 Mg Tab PO Not Given BID NOLAN Calcium Acetate 1,334 mg 04/05/18 09:32 04/12/18 14:13 Phoslo PO Not Given TIDCC NOLAN Ergocalciferol 1 cap 04/04/18 10:45 04/11/18 10:27 Drisdol 50,000 Intl Units Cap PO 1 cap Q7D NOLAN Administration Heparin Sodium (Porcine) 5,000 units 04/02/18 22:00 04/11/18 21:58 Heparin SC 5,000 units Q12 NOLAN Administration Ampicillin 2 gm/ Sodium 100 mls @ 200 mls/hr 04/06/18 12:00 04/12/18 04:12 Chloride IVPB 200 mls/hr Q8H NOLAN Administration Protocol Meropenem 500 mg/ Sodium 100 mls @ 100 mls/hr 04/07/18 23:30 04/11/18 23:32 Chloride IVPB 04/14/18 23:31 100 mls/hr Q12H NOLAN Administration Protocol Norepinephrine Bitartrate 4 mg 254 mls @ 15.24 mls/hr 04/10/18 07:15 05:27 / Sodium Chloride IV 10 mcg/min .[id number] PRN 38.1 mls/hr TITRATE PER MD ORDER Administration Protocol 4 MCG/MIN Chromium/Copper/Manganese/Zinc 1,012 mls @ 42 mls/hr 04/11/18 18:00 04/11/18 18:15 1 ml/ Multivitamins/Vitamin C IV 04/12/18 17:59 42 mls/hr 10 ml/ Heparin Sodium ( .Q24H ONE Administration Porcine) 1,000 units/ Amino Acids/Electrolytes/Dextrose Multivitamins/Vitamin C 5 ml 04/03/18 10:15 04/12/18 10:49 Multi-Delyn Liquid PO Not Given DAILY NOLAN Pantoprazole Sodium 40 mg 04/02/18 10:00 04/11/18 10:26 Protonix Inj IVP 40 mg DAILY NOLAN Administration Silver Sulfadiazine 0 ea 05/19/18 10:00 04/12/18 10:50 Silvadene 1% TOP Not Given DAILY NOLAN Silver Sulfadiazine 0 ea 04/11/18 10:00 04/12/18 10:50 Silvadene 1% TOP Not Given Q12 NOLAN Vitamin A 1 ea 04/10/18 23:00 04/12/18 04:14 Vitamin A & D Oint Ud Foilpak TOP 1 ea Q8 PRN Administration Dry Lips - Patient Studies Lab Studies: Microbiology Studies 04/11/18 12:11 Urine Culture - Final Urine No Growth (<1,000 CFU/ML) Lab Studies 04/12/18 04/12/18 04/12/18 Range/Units 11:53 09:23 06:01 WBC (4.8-10.8) K/uL RBC (3.80-5.20) Mil/uL Hgb (11.0-16.0) g/dL Hct (34.0-47.0) % MCV (81.0-99.0) fL MCH (27.0-31.0) pg MCHC (33.0-37.0) g/dL RDW (11.5-14.5) % Plt Count (130-400) K/uL MPV (7.2-11.7) fL Neut % (Auto) (50.0-75.0) % Lymph % (Auto) (20.0-40.0) % [place] % (Auto) (0.0-10.0) % Eos % (Auto) (0.0-4.0) % Baso % (Auto) (0.0-2.0) % Neut # (Auto) (1.8-7.0) K/uL Lymph # (Auto) (1.0-4.3) K/uL [place] # (Auto) (0.0-0.8) K/uL Eos # (Auto) (0.0-0.7) K/uL Baso # (Auto) (0.0-0.2) K/uL Neutrophils % (Manual) (50-75) % Band Neutrophils % (0-2) % Lymphocytes % (Manual) (20-40) % Monocytes % (Manual) (0-10) % Platelet Estimate (NORMAL) Polychromasia Hypochromasia (manual) Anisocytosis (manual) Puncture Site Rb pCO2 35 (35-45) mm/Hg pO2 132 H (80-100) mm/Hg HCO3 23.5 (21-28) mmol/L ABG pH 7.41 (7.35-7.45) ABG Total CO2 23.3 (22-28) mmol/L ABG O2 Saturation 98.8 H (95-98) % ABG Base Excess -1.9 (-2.0-3.0) mmol/L Jann Test Na ABG Potassium 3.5 L (3.6-5.2) mmol/L A-a O2 Difference 109.0 mm/Hg Respiratory Index 0.8 Glucose 171 H (65-105) mg/dl Lactate 2.3 H (0.7-2.1) mmol/L Vent Mode Bipap FiO2 40.0 % Inspiratory BiPAP 10 Expiratory BiPAP 5 Sodium 140.0 141 (132-148) mmol/L Potassium 3.7 (3.6-5.2) mmol/L Chloride 108.0 H 105 (98-107) mmol/L Carbon Dioxide 22 (22-30) mmol/L Anion Gap 18 (10-20) BUN 56 H (7-17) mg/dL Creatinine 2.4 H (0.7-1.2) mg/dL Est GFR ( Amer) 26 Est GFR (Non-Af Amer) 21 POC Glucose (mg/dL) 160 H (65-110) mg/dL Random Glucose 145 H (65-105) mg/dL Calcium 7.9 L (8.6-10.4) mg/dl Total Bilirubin 0.9 (0.2-1.3) mg/dL AST 18 (14-36) U/L ALT 30 (9-52) U/L Alkaline Phosphatase 142 H (38-126) U/L Total Protein 5.2 L (6.3-8.3) g/dL Albumin 2.4 L (3.5-5.0) g/dL Globulin 2.8 (2.2-3.9) gm/dL Albumin/Globulin Ratio 0.9 L (1.0-2.1) Arterial Blood Potassium 3.5 L (3.6-5.2) mmol/L Blood Type Antibody Screen 04/12/18 04/12/18 04/12/18 Range/Units 06:01 05:24 00:14 WBC 16.5 H (4.8-10.8) K/uL RBC 2.76 L (3.80-5.20) Mil/uL Hgb 7.8 L (11.0-16.0) g/dL Hct 23.2 L (34.0-47.0) % MCV 84.2 (81.0-99.0) fL MCH 28.1 (27.0-31.0) pg MCHC 33.4 (33.0-37.0) g/dL RDW 18.2 H (11.5-14.5) % Plt Count 169 (130-400) K/uL MPV 8.4 (7.2-11.7) fL Neut % (Auto) 84.3 H (50.0-75.0) % Lymph % (Auto) 8.7 L (20.0-40.0) % [place] % (Auto) 6.6 (0.0-10.0) % Eos % (Auto) 0.2 (0.0-4.0) % Baso % (Auto) 0.2 (0.0-2.0) % Neut # (Auto) 13.9 H (1.8-7.0) K/uL Lymph # (Auto) 1.4 (1.0-4.3) K/uL [place] # (Auto) 1.1 H (0.0-0.8) K/uL Eos # (Auto) 0.0 (0.0-0.7) K/uL Baso # (Auto) 0.0 (0.0-0.2) K/uL Neutrophils % (Manual) 82 H (50-75) % Band Neutrophils % 1 (0-2) % Lymphocytes % (Manual) 13 L (20-40) % Monocytes % (Manual) 4 (0-10) % Platelet Estimate Normal (NORMAL) Polychromasia Slight Hypochromasia (manual) Slight Anisocytosis (manual) Slight Puncture Site pCO2 (35-45) mm/Hg pO2 (80-100) mm/Hg HCO3 (21-28) mmol/L ABG pH (7.35-7.45) ABG Total CO2 (22-28) mmol/L ABG O2 Saturation (95-98) % ABG Base Excess (-2.0-3.0) mmol/L Jann Test ABG Potassium (3.6-5.2) mmol/L A-a O2 Difference mm/Hg Respiratory Index Glucose (65-105) mg/dl Lactate (0.7-2.1) mmol/L Vent Mode FiO2 % Inspiratory BiPAP Expiratory BiPAP Sodium (132-148) mmol/L Potassium (3.6-5.2) mmol/L Chloride (98-107) mmol/L Carbon Dioxide (22-30) mmol/L Anion Gap (10-20) BUN (7-17) mg/dL Creatinine (0.7-1.2) mg/dL Est GFR ( Amer) Est GFR (Non-Af Amer) POC Glucose (mg/dL) 167 H 170 H (65-110) mg/dL Random Glucose (65-105) mg/dL Calcium (8.6-10.4) mg/dl Total Bilirubin (0.2-1.3) mg/dL AST (14-36) U/L ALT (9-52) U/L Alkaline Phosphatase (38-126) U/L Total Protein (6.3-8.3) g/dL Albumin (3.5-5.0) g/dL Globulin (2.2-3.9) gm/dL Albumin/Globulin Ratio (1.0-2.1) Arterial Blood Potassium (3.6-5.2) mmol/L Blood Type Antibody Screen 04/11/18 04/11/18 Range/Units 17:43 10:41 WBC (4.8-10.8) K/uL RBC (3.80-5.20) Mil/uL Hgb (11.0-16.0) g/dL Hct (34.0-47.0) % MCV (81.0-99.0) fL MCH (27.0-31.0) pg MCHC (33.0-37.0) g/dL RDW (11.5-14.5) % Plt Count (130-400) K/uL MPV (7.2-11.7) fL Neut % (Auto) (50.0-75.0) % Lymph % (Auto) (20.0-40.0) % [place] % (Auto) (0.0-10.0) % Eos % (Auto) (0.0-4.0) % Baso % (Auto) (0.0-2.0) % Neut # (Auto) (1.8-7.0) K/uL Lymph # (Auto) (1.0-4.3) K/uL [place] # (Auto) (0.0-0.8) K/uL Eos # (Auto) (0.0-0.7) K/uL Baso # (Auto) (0.0-0.2) K/uL Neutrophils % (Manual) (50-75) % Band Neutrophils % (0-2) % Lymphocytes % (Manual) (20-40) % Monocytes % (Manual) (0-10) % Platelet Estimate (NORMAL) Polychromasia Hypochromasia (manual) Anisocytosis (manual) Puncture Site pCO2 (35-45) mm/Hg pO2 (80-100) mm/Hg HCO3 (21-28) mmol/L ABG pH (7.35-7.45) ABG Total CO2 (22-28) mmol/L ABG O2 Saturation (95-98) % ABG Base Excess (-2.0-3.0) mmol/L Jann Test ABG Potassium (3.6-5.2) mmol/L A-a O2 Difference mm/Hg Respiratory Index Glucose (65-105) mg/dl Lactate (0.7-2.1) mmol/L Vent Mode FiO2 % Inspiratory BiPAP Expiratory BiPAP Sodium (132-148) mmol/L Potassium (3.6-5.2) mmol/L Chloride (98-107) mmol/L Carbon Dioxide (22-30) mmol/L Anion Gap (10-20) BUN (7-17) mg/dL Creatinine (0.7-1.2) mg/dL Est GFR ( Amer) Est GFR (Non-Af Amer) POC Glucose (mg/dL) 117 H (65-110) mg/dL Random Glucose (65-105) mg/dL Calcium (8.6-10.4) mg/dl Total Bilirubin (0.2-1.3) mg/dL AST (14-36) U/L ALT (9-52) U/L Alkaline Phosphatase (38-126) U/L Total Protein (6.3-8.3) g/dL Albumin (3.5-5.0) g/dL Globulin (2.2-3.9) gm/dL Albumin/Globulin Ratio (1.0-2.1) Arterial Blood Potassium (3.6-5.2) mmol/L Blood Type O POSITIVE Antibody Screen Negative Laboratory Results - last 24 hr 04/11/18 04/11/18 04/12/18 10:41 17:43 00:14 WBC RBC Hgb Hct MCV MCH MCHC RDW Plt Count MPV Neut % (Auto) Lymph % (Auto) [place] % (Auto) Eos % (Auto) Baso % (Auto) Neut # (Auto) Lymph # (Auto) [place] # (Auto) Eos # (Auto) Baso # (Auto) Neutrophils % (Manual) Band Neutrophils % Lymphocytes % (Manual) Monocytes % (Manual) Platelet Estimate Polychromasia Hypochromasia (manual) Anisocytosis (manual) Puncture Site pCO2 pO2 HCO3 ABG pH ABG Total CO2 ABG O2 Saturation ABG Base Excess Jann Test ABG Potassium A-a O2 Difference Respiratory Index Glucose Lactate Vent Mode FiO2 Inspiratory BiPAP Expiratory BiPAP Sodium Potassium Chloride Carbon Dioxide Anion Gap BUN Creatinine Est GFR ( Amer) Est GFR (Non-Af Amer) POC Glucose (mg/dL) 117 H 170 H Random Glucose Calcium Total Bilirubin AST ALT Alkaline Phosphatase Total Protein Albumin Globulin Albumin/Globulin Ratio Arterial Blood Potassium Blood Type O POSITIVE Antibody Screen Negative 04/12/18 04/12/18 04/12/18 05:24 06:01 06:01 WBC 16.5 H RBC 2.76 L Hgb 7.8 L Hct 23.2 L MCV 84.2 MCH 28.1 MCHC 33.4 RDW 18.2 H Plt Count 169 MPV 8.4 Neut % (Auto) 84.3 H Lymph % (Auto) 8.7 L [place] % (Auto) 6.6 Eos % (Auto) 0.2 Baso % (Auto) 0.2 Neut # (Auto) 13.9 H Lymph # (Auto) 1.4 [place] # (Auto) 1.1 H Eos # (Auto) 0.0 Baso # (Auto) 0.0 Neutrophils % (Manual) 82 H Band Neutrophils % 1 Lymphocytes % (Manual) 13 L Monocytes % (Manual) 4 Platelet Estimate Normal Polychromasia Slight Hypochromasia (manual) Slight Anisocytosis (manual) Slight Puncture Site pCO2 pO2 HCO3 ABG pH ABG Total CO2 ABG O2 Saturation ABG Base Excess Jann Test ABG Potassium A-a O2 Difference Respiratory Index Glucose Lactate Vent Mode FiO2 Inspiratory BiPAP Expiratory BiPAP Sodium 141 Potassium 3.7 Chloride 105 Carbon Dioxide 22 Anion Gap 18 BUN 56 H Creatinine 2.4 H Est GFR ( Amer) 26 Est GFR (Non-Af Amer) 21 POC Glucose (mg/dL) 167 H Random Glucose 145 H Calcium 7.9 L Total Bilirubin 0.9 AST 18 ALT 30 Alkaline Phosphatase 142 H Total Protein 5.2 L Albumin 2.4 L Globulin 2.8 Albumin/Globulin Ratio 0.9 L Arterial Blood Potassium Blood Type Antibody Screen 04/12/18 04/12/18 09:23 11:53 WBC RBC Hgb Hct MCV MCH MCHC RDW Plt Count MPV Neut % (Auto) Lymph % (Auto) [place] % (Auto) Eos % (Auto) Baso % (Auto) Neut # (Auto) Lymph # (Auto) [place] # (Auto) Eos # (Auto) Baso # (Auto) Neutrophils % (Manual) Band Neutrophils % Lymphocytes % (Manual) Monocytes % (Manual) Platelet Estimate Polychromasia Hypochromasia (manual) Anisocytosis (manual) Puncture Site Rb pCO2 35 pO2 132 H HCO3 23.5 ABG pH 7.41 ABG Total CO2 23.3 ABG O2 Saturation 98.8 H ABG Base Excess -1.9 Jann Test Na ABG Potassium 3.5 L A-a O2 Difference 109.0 Respiratory Index 0.8 Glucose 171 H Lactate 2.3 H Vent Mode Bipap FiO2 40.0 Inspiratory BiPAP 10 Expiratory BiPAP 5 Sodium 140.0 Potassium Chloride 108.0 H Carbon Dioxide Anion Gap BUN Creatinine Est GFR ( Amer) Est GFR (Non-Af Amer) POC Glucose (mg/dL) 160 H Random Glucose Calcium Total Bilirubin AST ALT Alkaline Phosphatase Total Protein Albumin Globulin Albumin/Globulin Ratio Arterial Blood Potassium 3.5 L Blood Type Antibody Screen Critical Care Progress Note - Nutrition Nutrition: Nutrition Category Date Time Status NPO Diet [DIET] Diets 04/06/18 Breakfast Active Attending/Attestation - Attestation I have personally seen and examined this patient.: Yes I have fully participated in the care of the patient.: Yes I have reviewed all pertinent clinical information: Yes Notes (Text): 04/12/18 17:44 patient seen and examined in the intensive care unit. Patient appears very weak and lethargic Status post hemodialysis placed on BiPAP for shortness of breath Tolerating NG tube feedings Continue IV antibiotics For transfer to [facility]
--- NOTE | 2018-04-12 10:38 | CP.PCM.CON ---
Past Patient History - Tetanus Immunizations Tetanus Immunization: Unknown - Past Medical History & Family History Past Medical History?: Yes - Past Social History Smoking Status: Never Smoked - CARDIAC Hx Cardiac Disorders: (UNKNOWN) - PULMONARY Hx Respiratory Disorders: (UNKNOWN) - NEUROLOGICAL Hx Neurological Disorder: (UNKNOWN) - HEENT Hx HEENT Problems: (UNKNOWN) - RENAL Hx Chronic Kidney Disease: (UNKNOWN) - ENDOCRINE/METABOLIC Hx Endocrine Disorders: (UNKNOWN) - HEMATOLOGICAL/ONCOLOGICAL Hx Blood Disorders: (UNKNOWN) Hx Anemia: Yes (04-01-18) Other/Comment: SEPSIS 04-01-18 - INTEGUMENTARY Other/Comment: BLLE sores. Discoloration to Abd area. Umbilical hernia - MUSCULOSKELETAL/RHEUMATOLOGICAL Hx Musculoskeletal Disorders: (UNKNOWN) Hx Falls: Yes - GASTROINTESTINAL Hx Gastrointestinal Disorders: Yes (NON REDUCIBLE UMBILICAL HERNIA) - GENITOURINARY/GYNECOLOGICAL Hx Genitourinary Disorders: (UNKNOWN) - PSYCHIATRIC Hx Substance Use: No - SURGICAL HISTORY Hx Surgeries: No - ANESTHESIA Hx Anesthesia: No Hx Anesthesia Reactions: No Meds Allergies/Adverse Reactions: Allergies Allergy/AdvReac Type Severity Reaction Status Date / Time No Known Allergies Allergy Verified 04/01/18 17:21 - Medications Medications: Current Medications Albuterol/Ipratropium (Duoneb 3 Mg/0.5 Mg (3 Ml) Ud) 3 ml INH RQ6 PRN PRN Reason: Shortness of Breath Last Admin: 04/10/18 14:28 Dose: 3 ml Ascorbic Acid (Vitamin C 500 Mg Tab) 500 mg PO BID [facility] Last Admin: 04/11/18 17:07 Dose: 500 mg Calcium Acetate (Phoslo) 1,334 mg PO TIDCC [facility] Last Admin: 04/11/18 17:07 Dose: 1,334 mg Ergocalciferol (Drisdol 50,000 Intl Units Cap) 1 cap PO Q7D [facility] Last Admin: 04/11/18 10:27 Dose: 1 cap Heparin Sodium (Porcine) (Heparin) 5,000 units SC Q12 [facility] Last Admin: 04/11/18 21:58 Dose: 5,000 units Ampicillin 2 gm/ Sodium (Chloride) 100 mls @ 200 mls/hr IVPB Q8H NOLAN PRN Reason: Protocol Last Admin: 04/12/18 04:12 Dose: 200 mls/hr Meropenem 500 mg/ Sodium (Chloride) 100 mls @ 100 mls/hr IVPB Q12H NOLAN PRN Reason: Protocol Stop: 04/14/18 23:31 Last Admin: 04/11/18 23:32 Dose: 100 mls/hr Norepinephrine Bitartrate 4 mg (/ Sodium Chloride) 254 mls @ 15.24 mls/hr IV .[id number] PRN; Protocol; 4 MCG/MIN PRN Reason: TITRATE PER MD ORDER Last Admin: 04/12/18 05:27 Dose: 10 mcg/min, 38.1 mls/hr Chromium/Copper/Manganese/Zinc 1 ml/ Multivitamins/Vitamin C 10 ml/ Heparin Sodium ( Porcine) 1,000 units/ Amino Acids/Electrolytes/Dextrose 1,012 mls @ 42 mls/hr IV .Q24H ONE Stop: 04/12/18 17:59 Last Admin: 04/11/18 18:15 Dose: 42 mls/hr Multivitamins/Vitamin C (Multi-Delyn Liquid) 5 ml PO DAILY NOLAN Last Admin: 04/11/18 10:27 Dose: 5 ml Pantoprazole Sodium (Protonix Inj) 40 mg IVP DAILY NOLAN Last Admin: 04/11/18 10:26 Dose: 40 mg Silver Sulfadiazine (Silvadene 1%) 0 ea TOP DAILY NOLAN Last Admin: 04/11/18 10:29 Dose: 1 applic Silver Sulfadiazine (Silvadene 1%) 0 ea TOP Q12 NOLAN Last Admin: 04/11/18 21:59 Dose: 1 applic Vitamin A (Vitamin A & D Oint Ud Foilpak) 1 ea TOP Q8 PRN PRN Reason: Dry Lips Last Admin: 04/12/18 04:14 Dose: 1 ea Results - Vital Signs Recent Vital Signs: Last Vital Signs Temp 97.4 F L 04/12/18 04:00 Pulse 114 H 04/12/18 08:05 Resp 20 04/12/18 06:00 BP 114/63 04/12/18 05:40 Pulse Ox 99 04/12/18 06:00 - Labs Result Diagrams: 04/12/18 06:01 04/12/18 06:01 Labs: Laboratory Results - last 24 hr 04/06/18 04/11/18 04/11/18 12:12 12:11 12:16 WBC RBC Hgb Hct MCV MCH MCHC RDW Plt Count MPV Neut % (Auto) Lymph % (Auto) [place] % (Auto) Eos % (Auto) Baso % (Auto) Neut # (Auto) Lymph # (Auto) [place] # (Auto) Eos # (Auto) Baso # (Auto) Neutrophils % (Manual) Band Neutrophils % Lymphocytes % (Manual) Monocytes % (Manual) Platelet Estimate Polychromasia Hypochromasia (manual) Anisocytosis (manual) Puncture Site pCO2 pO2 HCO3 ABG pH ABG Total CO2 ABG O2 Saturation ABG Base Excess Jann Test ABG Potassium A-a O2 Difference Respiratory Index Glucose Lactate Vent Mode FiO2 Inspiratory BiPAP Expiratory BiPAP Sodium Potassium Chloride Carbon Dioxide Anion Gap BUN Creatinine Est GFR ( Amer) Est GFR (Non-Af Amer) POC Glucose (mg/dL) 132 H Random Glucose Calcium Total Bilirubin AST ALT Alkaline Phosphatase Total Protein Albumin Globulin Albumin/Globulin Ratio Arterial Blood Potassium Urine Color Lara Urine Clarity Hazy Urine pH 5.0 Ur Specific Fine 1.020 Urine Protein 1+ H Urine Glucose (UA) 1+ Urine Ketones Trace Urine Blood 2+ H Urine Nitrate Negative Urine Bilirubin Negative Urine Urobilinogen 2.0 H Ur Leukocyte Esterase 2+ H Urine WBC (Auto) 111 H Urine RBC (Auto) 2 Urine WBC Clumps (Auto) Occ H Ur Squamous Epith Cells 3 Amorphous Sediment Few H Urine Bacteria Occ H ANCA Screen Negative Proteinase 3 (PR3) <1.0 Myeloperoxidase Ab <1.0 04/11/18 04/12/18 04/12/18 17:43 00:14 05:24 WBC RBC Hgb Hct MCV MCH MCHC RDW Plt Count MPV Neut % (Auto) Lymph % (Auto) [place] % (Auto) Eos % (Auto) Baso % (Auto) Neut # (Auto) Lymph # (Auto) [place] # (Auto) Eos # (Auto) Baso # (Auto) Neutrophils % (Manual) Band Neutrophils % Lymphocytes % (Manual) Monocytes % (Manual) Platelet Estimate Polychromasia Hypochromasia (manual) Anisocytosis (manual) Puncture Site pCO2 pO2 HCO3 ABG pH ABG Total CO2 ABG O2 Saturation ABG Base Excess Jann Test ABG Potassium A-a O2 Difference Respiratory Index Glucose Lactate Vent Mode FiO2 Inspiratory BiPAP Expiratory BiPAP Sodium Potassium Chloride Carbon Dioxide Anion Gap BUN Creatinine Est GFR ( Amer) Est GFR (Non-Af Amer) POC Glucose (mg/dL) 117 H 170 H 167 H Random Glucose Calcium Total Bilirubin AST ALT Alkaline Phosphatase Total Protein Albumin Globulin Albumin/Globulin Ratio Arterial Blood Potassium Urine Color Urine Clarity Urine pH Ur Specific Fine Urine Protein Urine Glucose (UA) Urine Ketones Urine Blood Urine Nitrate Urine Bilirubin Urine Urobilinogen Ur Leukocyte Esterase Urine WBC (Auto) Urine RBC (Auto) Urine WBC Clumps (Auto) Ur Squamous Epith Cells Amorphous Sediment Urine Bacteria ANCA Screen Proteinase 3 (PR3) Myeloperoxidase Ab 04/12/18 04/12/18 04/12/18 06:01 06:01 09:23 WBC 16.5 H RBC 2.76 L Hgb 7.8 L Hct 23.2 L MCV 84.2 MCH 28.1 MCHC 33.4 RDW 18.2 H Plt Count 169 MPV 8.4 Neut % (Auto) 84.3 H Lymph % (Auto) 8.7 L [place] % (Auto) 6.6 Eos % (Auto) 0.2 Baso % (Auto) 0.2 Neut # (Auto) 13.9 H Lymph # (Auto) 1.4 [place] # (Auto) 1.1 H Eos # (Auto) 0.0 Baso # (Auto) 0.0 Neutrophils % (Manual) 82 H Band Neutrophils % 1 Lymphocytes % (Manual) 13 L Monocytes % (Manual) 4 Platelet Estimate Normal Polychromasia Slight Hypochromasia (manual) Slight Anisocytosis (manual) Slight Puncture Site Rb pCO2 35 pO2 132 H HCO3 23.5 ABG pH 7.41 ABG Total CO2 23.3 ABG O2 Saturation 98.8 H ABG Base Excess -1.9 Jann Test Na ABG Potassium 3.5 L A-a O2 Difference 109.0 Respiratory Index 0.8 Glucose 171 H Lactate 2.3 H Vent Mode Bipap FiO2 40.0 Inspiratory BiPAP 10 Expiratory BiPAP 5 Sodium 141 140.0 Potassium 3.7 Chloride 105 108.0 H Carbon Dioxide 22 Anion Gap 18 BUN 56 H Creatinine 2.4 H Est GFR ( Amer) 26 Est GFR (Non-Af Amer) 21 POC Glucose (mg/dL) Random Glucose 145 H Calcium 7.9 L Total Bilirubin 0.9 AST 18 ALT 30 Alkaline Phosphatase 142 H Total Protein 5.2 L Albumin 2.4 L Globulin 2.8 Albumin/Globulin Ratio 0.9 L Arterial Blood Potassium 3.5 L Urine Color Urine Clarity Urine pH Ur Specific Fine Urine Protein Urine Glucose (UA) Urine Ketones Urine Blood Urine Nitrate Urine Bilirubin Urine Urobilinogen Ur Leukocyte Esterase Urine WBC (Auto) Urine RBC (Auto) Urine WBC Clumps (Auto) Ur Squamous Epith Cells Amorphous Sediment Urine Bacteria ANCA Screen Proteinase 3 (PR3) Myeloperoxidase Ab
[2018-04-12] MEDS: Multiple Vitamins Oral Solution PO SCH (10:49)
[2018-04-12] MEDS: Silver Sulfadiazine 1% Cream (400 gm) TOP SCH ×3 (10:50→22:35)
[2018-04-12] MEDS: Meropenem 500 MG in Sodium Chloride 0.9% 100 ML IVPB SCH ×2 (11:57→22:29)
--- NOTE | 2018-04-12 14:24 | CP.PCM.PN ---
Subjective - Date & Time of Evaluation Date of Evaluation: 04/12/18 Time of Evaluation: 02:20 - Subjective Subjective: dictated Objective - Vital Signs/Intake and Output Vital Signs (last 24 hours): Temp Pulse Resp BP Pulse Ox 97.7 F 92 H 17 100/65 100 04/12/18 13:00 04/12/18 13:25 04/12/18 13:00 04/12/18 13:00 04/12/18 13:00 Intake and Output: 04/12/18 04/12/18 06:59 18:59 Intake Total 1805.4 325 Output Total 680 Balance 1125.4 325 - Medications Medications: Current Medications Albuterol/Ipratropium (Duoneb 3 Mg/0.5 Mg (3 Ml) Ud) 3 ml INH RQ6 PRN PRN Reason: Shortness of Breath Last Admin: 04/10/18 14:28 Dose: 3 ml Ascorbic Acid (Vitamin C 500 Mg Tab) 500 mg PO BID [facility] Last Admin: 04/12/18 10:50 Dose: Not Given Calcium Acetate (Phoslo) 1,334 mg PO TIDCC [facility] Last Admin: 04/11/18 17:07 Dose: 1,334 mg Ergocalciferol (Drisdol 50,000 Intl Units Cap) 1 cap PO Q7D [facility] Last Admin: 04/11/18 10:27 Dose: 1 cap Heparin Sodium (Porcine) (Heparin) 5,000 units SC Q12 [facility] Last Admin: 04/11/18 21:58 Dose: 5,000 units Ampicillin 2 gm/ Sodium (Chloride) 100 mls @ 200 mls/hr IVPB Q8H NOLAN PRN Reason: Protocol Last Admin: 04/12/18 04:12 Dose: 200 mls/hr Meropenem 500 mg/ Sodium (Chloride) 100 mls @ 100 mls/hr IVPB Q12H NOLAN PRN Reason: Protocol Stop: 04/14/18 23:31 Last Admin: 04/11/18 23:32 Dose: 100 mls/hr Norepinephrine Bitartrate 4 mg (/ Sodium Chloride) 254 mls @ 15.24 mls/hr IV .[id number] PRN; Protocol; 4 MCG/MIN PRN Reason: TITRATE PER MD ORDER Last Admin: 04/12/18 05:27 Dose: 10 mcg/min, 38.1 mls/hr Chromium/Copper/Manganese/Zinc 1 ml/ Multivitamins/Vitamin C 10 ml/ Heparin Sodium ( Porcine) 1,000 units/ Amino Acids/Electrolytes/Dextrose 1,012 mls @ 42 mls/hr IV .Q24H ONE Stop: 04/12/18 17:59 Last Admin: 04/11/18 18:15 Dose: 42 mls/hr Multivitamins/Vitamin C (Multi-Delyn Liquid) 5 ml PO DAILY [facility] Last Admin: 04/12/18 10:49 Dose: Not Given Pantoprazole Sodium (Protonix Inj) 40 mg IVP DAILY [facility] Last Admin: 04/11/18 10:26 Dose: 40 mg Silver Sulfadiazine (Silvadene 1%) 0 ea TOP DAILY [facility] Last Admin: 04/12/18 10:50 Dose: Not Given Silver Sulfadiazine (Silvadene 1%) 0 ea TOP Q12 [facility]OLAN Last Admin: 04/12/18 10:50 Dose: Not Given Vitamin A (Vitamin A & D Oint Ud Foilpak) 1 ea TOP Q8 PRN PRN Reason: Dry Lips Last Admin: 04/12/18 04:14 Dose: 1 ea - Labs Labs: 04/12/18 06:01 04/12/18 06:01 PT 11.2 SECONDS (9.7-12.2) 04/05/18 06:15 INR 1.0 04/05/18 06:15 APTT 29 SECONDS (21-34) 04/05/18 06:15
--- NOTE | 2018-04-12 15:13 | CP.PCM.PN ---
Subjective - Date & Time of Evaluation Date of Evaluation: 04/12/18 Time of Evaluation: 13:20 - Subjective Subjective: dialysis note She was seen on dialysis almost near the end of the dialysis Patient appeared to be lethargic. Vital sign noted Ultrafiltration 750 mL completed Objective - Vital Signs/Intake and Output Vital Signs (last 24 hours): Temp Pulse Resp BP Pulse Ox 97.7 F 92 H 17 100/65 100 04/12/18 13:00 04/12/18 13:25 04/12/18 13:00 04/12/18 13:00 04/12/18 13:00 Intake and Output: 04/12/18 04/12/18 06:59 18:59 Intake Total 1805.4 325 Output Total 680 Balance 1125.4 325 - Medications Medications: Current Medications Albuterol/Ipratropium (Duoneb 3 Mg/0.5 Mg (3 Ml) Ud) 3 ml INH RQ6 PRN PRN Reason: Shortness of Breath Last Admin: 04/10/18 14:28 Dose: 3 ml Ascorbic Acid (Vitamin C 500 Mg Tab) 500 mg PO BID [facility] Last Admin: 04/12/18 10:50 Dose: Not Given Calcium Acetate (Phoslo) 1,334 mg PO TIDCC [facility] Last Admin: 04/12/18 14:13 Dose: Not Given Ergocalciferol (Drisdol 50,000 Intl Units Cap) 1 cap PO Q7D [facility] Last Admin: 04/11/18 10:27 Dose: 1 cap Heparin Sodium (Porcine) (Heparin) 5,000 units SC Q12 [facility] Last Admin: 04/11/18 21:58 Dose: 5,000 units Ampicillin 2 gm/ Sodium (Chloride) 100 mls @ 200 mls/hr IVPB Q8H [facility] PRN Reason: Protocol Last Admin: 04/12/18 04:12 Dose: 200 mls/hr Meropenem 500 mg/ Sodium (Chloride) 100 mls @ 100 mls/hr IVPB Q12H [facility] PRN Reason: Protocol Stop: 04/14/18 23:31 Last Admin: 04/11/18 23:32 Dose: 100 mls/hr Norepinephrine Bitartrate 4 mg (/ Sodium Chloride) 254 mls @ 15.24 mls/hr IV .[id number] PRN; Protocol; 4 MCG/MIN PRN Reason: TITRATE PER MD ORDER Last Admin: 04/12/18 05:27 Dose: 10 mcg/min, 38.1 mls/hr Chromium/Copper/Manganese/Zinc 1 ml/ Multivitamins/Vitamin C 10 ml/ Heparin Sodium ( Porcine) 1,000 units/ Amino Acids/Electrolytes/Dextrose 1,012 mls @ 42 mls/hr IV .Q24H ONE Stop: 04/12/18 17:59 Last Admin: 04/11/18 18:15 Dose: 42 mls/hr Multivitamins/Vitamin C (Multi-Delyn Liquid) 5 ml PO DAILY [facility] Last Admin: 04/12/18 10:49 Dose: Not Given Pantoprazole Sodium (Protonix Inj) 40 mg IVP DAILY [facility] Last Admin: 04/11/18 10:26 Dose: 40 mg Silver Sulfadiazine (Silvadene 1%) 0 ea TOP DAILY [facility] Last Admin: 04/12/18 10:50 Dose: Not Given Silver Sulfadiazine (Silvadene 1%) 0 ea TOP Q12 [facility] Last Admin: 04/12/18 10:50 Dose: Not Given Vitamin A (Vitamin A & D Oint Ud Foilpak) 1 ea TOP Q8 PRN PRN Reason: Dry Lips Last Admin: 04/12/18 04:14 Dose: 1 ea - Labs Labs: 04/12/18 06:01 04/12/18 06:01 PT 11.2 SECONDS (9.7-12.2) 04/05/18 06:15 INR 1.0 04/05/18 06:15 APTT 29 SECONDS (21-34) 04/05/18 06:15 - Constitutional Appears: No Acute Distress - Eye Exam Eye Exam: Conjunctival injection - ENT Exam ENT Exam: Mucous Membranes Moist - Neck Exam Neck Exam: absent: Lymphadenopathy - Respiratory Exam Respiratory Exam: Rhonchi. absent: Chest Wall Tenderness - Cardiovascular Exam Cardiovascular Exam: absent: Gallop, Rubs - GI/Abdominal Exam GI & Abdominal Exam: Soft, Normal Bowel Sounds - Extremities Exam Extremities Exam: absent: Calf Tenderness - Back Exam Back Exam: absent: CVA tenderness (L), CVA tenderness (R) - Neurological Exam Neurological Exam: Altered - Skin Skin Exam: absent: Cyanosis Assessment and Plan (1) Acute tubular necrosis Assessment & Plan: Acute renal failure. Patient receiving dialysis. Ultrafiltration 750 mL Sodium bath 138 Potassium bath 3 mEq Bicarbonate bath 34 Patient tolerated dialysis. Patient still very extensive skin rash patient receiving antibiotics as per ID recommendation with the renal doses consideration. Ultrasound of the kidneys showed bilateral hydronephrosis I suggest urology consultation. Anuric Acute Kidney Injury (N17.9) ? 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
--- NOTE | 2018-04-12 16:57 | PN ---
DATE: 04/12/2018 LOCATION: ICU 6. SUBJECTIVE: This is a 52-year-old female seen and examined in rounds, without significant clinical changes. She is still on NG-tube breathing with some feeding with some residual with generalized weakness and malaise. No reported active bleeding, with mild semi-confusion. The entire chart is reviewed including but not limited to the most recent lab and radiology study results, current and the previous medication list, current and the previous medical events. LABORATORY DATA: Today's lab shows white blood cells of 16.5, hemoglobin 7.8, hematocrit 23.2, with abnormal ABGs. Blood glucose level 160, BUN 56, creatinine 2.24, with calcium 7.9. Low albumin 2.4, low total protein 5.2. The most recent chest x-ray done yesterday with possible small bilateral effusion. PHYSICAL EXAMINATION: GENERAL: A 52-year-old female. VITAL SIGNS: Afebrile, with pulse of 90, blood pressure 116/64. HEENT: Showed pale, dry, oral mucous membranes. Nonicteric sclerae. LUNGS: Few scattered crepitations. Decreased air entry at bases. HEART: Positive S1 and S2. ABDOMEN: Soft, with mild generalized tenderness. No mass or organomegaly. No rebound tenderness or guarding. EXTREMITIES: With superficial ulcerations and dome-like lesions with mild edematous changes. NEUROLOGIC: No new reported neurological deficits, sensory or motor. No reported new focal deficits. IMPRESSION: 1. Respiratory insufficiency. 2. Listeria septicemia. 3. Small bilateral pleural effusions. 4. Anemia. No evidence of active bleeding that could be secondary to chronic disease. 5. Change of mental status secondary to above. 6. No renal insufficiency. SUGGESTIONS: 1. Continue current management. 2. Central hyperalimentation. 3. The patient may need a long run PEG insertion if she is not stable clinically. 4. Repeat abdominal and pelvic CAT scan. 5. Further recommendations to follow. Salinas Miles MD
[2018-04-12] MEDS ORDERED: Etomidate 20 mg/10ml Inj IV ONE (18:44)
[2018-04-12] MEDS ORDERED: Morphine 4 MG/ML VIAL IVP STA (22:22)
--- NOTE | 2018-04-12 23:52 | CP.PCM.PN ---
Subjective - Date & Time of Evaluation Date of Evaluation: 04/12/18 Time of Evaluation: 19:35 - Subjective Subjective: Pt is seen and evaluated at bedside Objective - Vital Signs/Intake and Output Vital Signs (last 24 hours): Temp Pulse Resp BP Pulse Ox 97.7 F 120 H 21 82/45 L 99 04/12/18 17:00 04/12/18 23:07 04/12/18 23:07 04/12/18 23:07 04/12/18 23:07 Intake and Output: 04/12/18 04/13/18 18:59 06:59 Intake Total 1557.5 254 Output Total 1520 Balance 37.5 254 - Medications Medications: Current Medications Albuterol/Ipratropium (Duoneb 3 Mg/0.5 Mg (3 Ml) Ud) 3 ml INH RQ6 PRN PRN Reason: Shortness of Breath Last Admin: 04/10/18 14:28 Dose: 3 ml Ascorbic Acid (Vitamin C 500 Mg Tab) 500 mg PO BID [facility] Last Admin: 04/12/18 19:00 Dose: 500 mg Calcium Acetate (Phoslo) 1,334 mg PO TIDCC [facility] Last Admin: 04/12/18 19:00 Dose: 1,334 mg Ergocalciferol (Drisdol 50,000 Intl Units Cap) 1 cap PO Q7D [facility] Last Admin: 04/11/18 10:27 Dose: 1 cap Heparin Sodium (Porcine) (Heparin) 5,000 units SC Q12 [facility] Last Admin: 04/12/18 22:26 Dose: 5,000 units Ampicillin 2 gm/ Sodium (Chloride) 100 mls @ 200 mls/hr IVPB Q8H [facility] PRN Reason: Protocol Last Admin: 04/12/18 20:00 Dose: 200 mls/hr Meropenem 500 mg/ Sodium (Chloride) 100 mls @ 100 mls/hr IVPB Q12H [facility] PRN Reason: Protocol Stop: 04/14/18 23:31 Last Admin: 04/12/18 22:29 Dose: 100 mls/hr Norepinephrine Bitartrate 4 mg (/ Sodium Chloride) 254 mls @ 15.24 mls/hr IV .[id number] PRN; Protocol; 4 MCG/MIN PRN Reason: TITRATE PER MD ORDER Last Admin: 04/12/18 19:15 Dose: 10 mcg/min, 38.1 mls/hr Lorazepam (Ativan) 1 mg IVP Q3H PRN PRN Reason: Anxiety Multivitamins/Vitamin C (Multi-Delyn Liquid) 5 ml PO DAILY [facility] Last Admin: 04/12/18 10:49 Dose: Not Given Pantoprazole Sodium (Protonix Inj) 40 mg IVP DAILY [facility] Last Admin: 04/12/18 09:56 Dose: 40 mg Silver Sulfadiazine (Silvadene 1%) 0 ea TOP DAILY [facility] Last Admin: 04/12/18 10:50 Dose: Not Given Silver Sulfadiazine (Silvadene 1%) 0 ea TOP Q12 [facility] Last Admin: 04/12/18 22:35 Dose: 1 applic Vitamin A (Vitamin A & D Oint Ud Foilpak) 1 ea TOP Q8 PRN PRN Reason: Dry Lips Last Admin: 04/12/18 04:14 Dose: 1 ea - Labs Labs: 04/12/18 06:01 04/12/18 06:01 PT 11.2 SECONDS (9.7-12.2) 04/05/18 06:15 INR 1.0 04/05/18 06:15 APTT 29 SECONDS (21-34) 04/05/18 06:15 Assessment and Plan (1) Acute respiratory failure Status: Acute (2) Acute tubular necrosis Status: Acute (3) Listeria septicemia Status: Acute (4) Leukocytosis Status: Acute
--- NOTE | 2018-04-13 02:34 | PN ---
DATE: 04/12/2018 SUBJECTIVE: The patient was found to be on BiPAP today. She was very drowsy and dyspneic. PHYSICAL EXAMINATION: VITAL SIGNS: T-max was 97.7, pulse 97, blood pressure 110/67, pulse of 75, respirations were 22. The nurse was telling me that they were going to change the _feeding to NG tube feedings as she may tolerate that, and they were planning to get [facility] they have the bed but the transportation was the issue as she needs oxygen while being transported, and she was really ill-looking today with the BiPAP on. NECK: Supple. LUNGS: Occasional rhonchi. HEART: S1 was tachy. ABDOMEN: Remains with all this cover which is covering this blistering. SKIN: Blistering of skin all over her body, lower extremities as well as areas of abdomen. LABORATORY DATA: Labs were noted. Labs show white count is 16.5, her hemoglobin 7.8, hematocrit is 23.2, platelet count is 169. White count has improved. Platelets have improved but hemoglobin is dropping, and her ABG was done today, and Pulmonary is following that. Urine culture came out negative which was done. Her creatinine remains at 2.4, BUN is 56. She has a catheter in the neck area, left side. At this time, she received treatment for this Listeria from we started treating with meropenem the day she came in which was on the and today is , so almost 12 days, and she will need like 9 more days of antibiotics but she may benefit with hyperbaric oxygen and she is from [place], so planning was to get her there until she also had hyperbaric and rehab and to finish the antibiotics, completing the course in 21 days, and I hope that is accomplished. She has Staph aureus but that was methicillin sensitive. Festus Camarena MD [facility]
[2018-04-13] MEDS ORDERED: Albumin Human 25% (12.5 gm/50 ml) IV STA (03:16)
[2018-04-13] MEDS: AMPicillin 2 GM in Sodium Chloride 100 ML IVPB SCH ×3 (04:00→17:18)
[2018-04-13 05:52] LABS: ABG ALLEN TEST POS; ARTERIAL BLOOD GAS HCO3 26.9 mmol/L (21-28); ARTERIAL BLOOD GAS HEMOGLOBIN 8.4 g/dL (11.7-17.4); ARTERIAL BLOOD GAS O2 SAT 98.7 % (95-98); ARTERIAL BLOOD GAS PCO2 36 mm/Hg (35-45); ARTERIAL BLOOD GAS PH 7.47 (7.35-7.45); ARTERIAL BLOOD GAS PO2 120 mm/Hg (80-100); ARTERIAL BLOOD GAS TCO2 27.3 mmol/L (22-28)
[2018-04-13 06:49] LABS: BASO % 0.4 % (0.0-2.0); EOS # 0.2 K/uL (0.0-0.7); EOS % 1.5 % (0.0-4.0); HEMOGLOBIN 8.1 g/dL (11.0-16.0); LYMPH # 1.1 K/uL (1.0-4.3); LYMPH % 10.9 % (20.0-40.0); MEAN CELL VOLUME 83.8 fL (81.0-99.0); MEAN CORPUSCULAR HGB CONC 34.6 g/dL (33.0-37.0); MEAN PLATELET VOLUME 9.1 fL (7.2-11.7); MONO # 0.6 K/uL (0.0-0.8); NEUT # 8.4 K/uL (1.8-7.0); NEUT % 81.2 % (50.0-75.0); NRBC % 0.1 % (0.0-2.0); RBC 2.77 Mil/uL (3.80-5.20); RED CELL DISTRIBUTION WIDTH 16.2 % (11.5-14.5); WHITE BLOOD COUNT 10.3 K/uL (4.8-10.8)
[2018-04-13 07:10] LABS: ALB/GLOB RATIO 0.9 (1.0-2.1); ALBUMIN 2.5 g/dL (3.5-5.0); CALCIUM 7.8 mg/dl (8.6-10.4)
[2018-04-13] MEDS: Acetaminophen 650mg/20.3ml solution UD PO PRN ×4 (07:58→20:37)
[2018-04-13] MEDS: Silver Sulfadiazine 1% Cream (400 gm) TOP SCH ×3 (09:28→21:48)
[2018-04-13] MEDS: Multiple Vitamins Oral Solution PO SCH (09:28)
--- NOTE | 2018-04-13 09:37 | RAD ---
Chest x-ray single frontal view History: Intubation. Comparison: 04/11/2018 Findings: Endotracheal tube extending into the mid thoracic trachea. Other lines and tubes in stable position. Persistent elevated right hemidiaphragm. Prominent linear atelectatic changes at both lung bases. External device projecting over the left lung apex. Tortuous aorta. Degenerative changes in the spine. Impression: Interval placement of an endotracheal tube.
--- NOTE | 2018-04-13 09:48 | RAD ---
HISTORY: ff-up COMPARISON: Chest x-ray 04/12/2018 TECHNIQUE: Chest one view . FINDINGS: LUNGS: Hypoinflated lungs. Right basilar airspace opacity versus atelectasis. Elevated right hemidiaphragm, unchanged. Decrease in previously seen left basilar atelectasis. Endotracheal tube tip is above the aysha. PLEURA: See above CARDIOVASCULAR: Stable right-sided dialysis catheter with distal tip overlying the region of the right atrium. Stable left-sided central venous line with tip overlying the region the SVC. OSSEOUS STRUCTURES: Visualized osseous structures are unremarkable. VISUALIZED UPPER ABDOMEN: There is an enteric feeding tube with tip overlying region of the stomach. OTHER FINDINGS: None. IMPRESSION: Hypoinflated lungs. Right basilar airspace opacity versus atelectasis. Elevated right hemidiaphragm, unchanged. Decrease in previously seen left basilar atelectasis.
[2018-04-13] MEDS: Meropenem 500 MG in Sodium Chloride 0.9% 100 ML IVPB SCH ×2 (10:37→22:30)
--- NOTE | 2018-04-13 15:42 | CP.PCM.PN ---
Subjective - Date & Time of Evaluation Date of Evaluation: 04/13/18 Time of Evaluation: 15:40 - Subjective Subjective: Nephrology Consultation Note: Assessment: critical Anuric Acute Kidney Injury (N17.9) ? etiology with 5 gram proteinuria b/l hydroureteronephrosis Hyperkalemia, HAGMA, acute respi failure, hyponatremia Fall with rhabdomyolysis, severe anemia with leukocytsosis with Sepsis (Listeria ) Hyperphosphatemia (E83.39), hypocalcemia, hyperuricemia, Vit D def, anemia, sec hyperparathyroidism leg wounds Plan hd mwf lytes reviewed anemia stable bp stable hydronephrosis b/l,stable on recent USG Physical Examination: General Appearance: frail, chronically debilitated and ill appearing, cachexic Vitals reviewed and noted as below Head; Atraumatic, normocephalic EYES: Pupils are equal, Sclera is anicteric. Neck; supple no lymphadenopathy, no thyromegaly or bruit Lungs: normal respiratory rate/effort. Breath sounds bilateral equal and clear anteriorly Heart: Normal rate. s1s2 normal. No rub or gallop. Extremities: 1+ edema. No varicose veins. has wounds in lower extremities and dressed s/p debridement Neurological: Patient is awake but lethargic Skin: ecchymoses lower abdomen and dressings on b/l LE Abdomen: Abdomen is soft. Bowel sounds +. There is no abdominal tenderness, no guarding/rigidity no organomegaly. Psych: unable MSK: no joint tenderness or swelling. Digits and nails normal, no deformity : kidney or bladder not palpable. Access: permacath Objective - Vital Signs/Intake and Output Vital Signs (last 24 hours): Temp Pulse Resp BP Pulse Ox 102 F H 121 H 26 H 100/61 100 04/13/18 08:00 04/13/18 11:08 04/13/18 11:08 04/13/18 11:08 04/13/18 11:08 Intake and Output: 04/13/18 04/13/18 06:59 18:59 Intake Total 1502.8 528.8 Output Total 60 Balance 1502.8 468.8 - Medications Medications: Current Medications Acetaminophen (Tylenol 650mg/20.3ml Solution Ud) 650 mg PO Q4 PRN PRN Reason: Fever Last Admin: 04/13/18 12:02 Dose: 650 mg Albuterol/Ipratropium (Duoneb 3 Mg/0.5 Mg (3 Ml) Ud) 3 ml INH RQ6 PRN PRN Reason: Shortness of Breath Last Admin: 04/10/18 14:28 Dose: 3 ml Ascorbic Acid (Vitamin C 500 Mg Tab) 500 mg PO BID [facility] Last Admin: 04/13/18 09:27 Dose: 500 mg Calcium Acetate (Phoslo) 1,334 mg PO TIDCC [facility] Last Admin: 04/13/18 11:57 Dose: 1,334 mg Ergocalciferol (Drisdol 50,000 Intl Units Cap) 1 cap PO Q7D [facility] Last Admin: 04/11/18 10:27 Dose: 1 cap Ampicillin 2 gm/ Sodium (Chloride) 100 mls @ 200 mls/hr IVPB Q8H [facility] PRN Reason: Protocol Last Admin: 04/13/18 11:49 Dose: 200 mls/hr Meropenem 500 mg/ Sodium (Chloride) 100 mls @ 100 mls/hr IVPB Q12H [facility] PRN Reason: Protocol Stop: 04/14/18 23:31 Last Admin: 04/13/18 10:37 Dose: 100 mls/hr Norepinephrine Bitartrate 4 mg (/ Sodium Chloride) 254 mls @ 15.24 mls/hr IV .[id number] PRN; Protocol; 4 MCG/MIN PRN Reason: TITRATE PER MD ORDER Last Admin: 04/13/18 10:36 Dose: 10 mcg/min, 38.1 mls/hr Vasopressin 40 units/ Sodium (Chloride) 42 mls @ 0.63 mls/hr IV .Q24H [facility]; 0.01 UNITS/MIN PRN Reason: Protocol Last Admin: 04/13/18 03:35 Dose: 0.02 units/min, 1.26 mls/hr Fluconazole 100 mg/ (Miscellaneous) 50 mls @ 100 mls/hr IVPB DAILY [facility] PRN Reason: Protocol Lorazepam (Ativan) 1 mg IVP Q3H PRN PRN Reason: Anxiety Multivitamins/Vitamin C (Multi-Delyn Liquid) 5 ml PO DAILY [facility] Last Admin: 04/13/18 09:28 Dose: 5 ml Pantoprazole Sodium (Protonix Inj) 40 mg IVP DAILY [facility] Last Admin: 04/13/18 09:27 Dose: 40 mg Silver Sulfadiazine (Silvadene 1%) 0 ea TOP DAILY [facility] Last Admin: 04/12/18 10:50 Dose: Not Given Silver Sulfadiazine (Silvadene 1%) 0 ea TOP Q12 [facility] Last Admin: 04/13/18 09:28 Dose: 1 applic Vitamin A (Vitamin A & D Oint Ud Foilpak) 1 ea TOP Q8 PRN PRN Reason: Dry Lips Last Admin: 04/12/18 04:14 Dose: 1 ea - Labs Labs: 04/13/18 06:28 04/13/18 06:28 PT 11.2 SECONDS (9.7-12.2) 04/05/18 06:15 INR 1.0 04/05/18 06:15 APTT 29 SECONDS (21-34) 04/05/18 06:15
[2018-04-13] MEDS ORDERED: AMPicillin 2 GM in Sodium Chloride 100 ML IVPB SCH (15:45)
[2018-04-13] MEDS: Fluconazole IV 100mg/50 ml NS 50 ML IVPB SCH (16:37)
--- NOTE | 2018-04-13 18:25 | CP.CCUPN ---
<Mik Huynh - Last Filed: 04/13/18 18:22> CCU Subjective - Physician Review Subjective (Free Text): Patient extubated on 04/07. Patient reintubated on 04/12 in preparation for transfer Transfer cancelled on 04/13. Dr. De La Rosa from [facility] will no longer accept patient. CCU Objective - Vital Signs / Intake & Output Vital Signs (Last 4 hours): Vital Signs Temp Pulse Resp BP Pulse Ox 04/13/18 17:07 124 H 25 H 108/58 L 100 04/13/18 17:00 118 H 23 100 04/13/18 16:54 117 H 19 101/53 L 100 04/13/18 16:07 123 H 26 H 101/53 L 100 04/13/18 16:00 101.1 F H 124 H 27 H 100 04/13/18 15:07 124 H 28 H 99/52 L 100 04/13/18 15:00 122 H 26 H 100 Intake and Output (Last 8hrs): Intake & Output 04/13/18 04/13/18 04/13/18 06:59 14:59 22:59 Intake Total 918.8 1023.6 381.1 Output Total 60 0 Balance 918.8 963.6 381.1 Weight 116 lb 5 oz Intake: IV 254 254 10 Intake, IV Amount 454.8 509.6 266.1 Left Distal Port Internal 150 200 150 Jugular Left Medial Port Internal 4.8 9.6 3.6 Jugular Left Proximal Port 300.0 300.0 112.5 Internal Jugular Tube Feeding 210 260 105 Output: Urine 60 Urethral ([place]) 60 Emesis 0 0 Other: # Bowel Movements 0 1 - Physical Exam Head: Positive for: Atraumatic Mouth: Positive for: Moist Mucous Membranes Respiratory/Chest: Positive for: Good Air Exchange. Negative for: Respiratory Distress, Accessory Muscle Use Cardiovascular: Positive for: Normal S1, S2, Gallop Abdomen: Positive for: Distention, Other (abdomen reveals a 5 cm circular bulb no Bowel sounds in bulb). Negative for: Tenderness, Rebound, Guarding Upper Extremity: Positive for: Edema. Negative for: Cyanosis Lower Extremity: Positive for: Edema, Other (non-blanching ecchymotic lesions covering more than 25 percent of lower extremity and abdomen. S/P debridement with Dressing b/L. ) Neurological: Negative for: GCS=15 (11T) Psychiatric: Positive for: Alert, Oriented x 3 - Medications Active Medications: Active Medications Generic Name Dose Route Start Last Admin Trade Name Freq PRN Reason Stop Dose Admin Acetaminophen 650 mg 04/13/18 07:37 04/13/18 16:45 Tylenol 650mg/20.3ml Solution Ud PO 650 mg Q4 PRN Administration Fever Albuterol/Ipratropium 3 ml 04/03/18 09:30 04/10/18 14:28 Duoneb 3 Mg/0.5 Mg (3 Ml) Ud INH 3 ml RQ6 PRN Administration Shortness of Breath Ascorbic Acid 500 mg 04/02/18 10:00 04/13/18 17:19 Vitamin C 500 Mg Tab PO 500 mg BID NOLAN Administration Calcium Acetate 1,334 mg 04/05/18 09:32 04/13/18 17:19 Phoslo PO 1,334 mg TIDCC NOLAN Administration Ergocalciferol 1 cap 04/04/18 10:45 04/11/18 10:27 Drisdol 50,000 Intl Units Cap PO 1 cap Q7D NOLAN Administration Heparin Sodium (Porcine) 5,000 units 04/13/18 22:00 Heparin SC Q12 NOLAN Meropenem 500 mg/ Sodium 100 mls @ 100 mls/hr 04/07/18 23:30 04/13/18 10:37 Chloride IVPB 04/14/18 23:31 100 mls/hr Q12H NOLAN Administration Protocol Norepinephrine Bitartrate 4 mg 254 mls @ 15.24 mls/hr 04/10/18 07:15 16:54 / Sodium Chloride IV 10 mcg/min .[id number] PRN 38.1 mls/hr TITRATE PER MD ORDER Administration Protocol 4 MCG/MIN Vasopressin 40 units/ Sodium 42 mls @ 0.63 mls/hr 04/13/18 03:30 04/13/18 03: 35 Chloride IV 0.02 units/min .Q24H NOLAN 1.26 mls/hr Protocol Administration 0.01 UNITS/MIN Fluconazole 50 mls @ 100 mls/hr 04/13/18 16:30 04/13/18 16:37 Diflucan Iv 100 Mg/50 Ml Ns IVPB 100 mls/hr DAILY NOLAN Administration Protocol Ampicillin 2 gm/ Sodium 100 mls @ 200 mls/hr 04/13/18 18:00 04/13/18 17:18 Chloride IVPB 200 mls/hr Q6H NOLAN Administration Protocol Lorazepam 1 mg 04/12/18 18:46 Ativan IVP Q3H PRN Anxiety Multivitamins/Vitamin C 5 ml 04/03/18 10:15 04/13/18 09:28 Multi-Delyn Liquid PO 5 ml DAILY NOLAN Administration Pantoprazole Sodium 40 mg 04/02/18 10:00 04/13/18 09:27 Protonix Inj IVP 40 mg DAILY NOLAN Administration Silver Sulfadiazine 0 ea 04/08/18 10:00 04/13/18 16:39 Silvadene 1% TOP 1 applic DAILY NOLAN Administration Silver Sulfadiazine 0 ea 04/11/18 10:00 04/13/18 09:28 Silvadene 1% TOP 1 applic Q12 NOLAN Administration Vitamin A 1 ea 04/10/18 23:00 04/12/18 04:14 Vitamin A & D Oint Ud Foilpak TOP 1 ea Q8 PRN Administration Dry Lips - Patient Studies Lab Studies: Lab Studies 04/13/18 04/13/18 04/13/18 Range/Units 17:31 11:31 06:28 WBC (4.8-10.8) K/uL RBC (3.80-5.20) Mil/uL Hgb (11.0-16.0) g/dL Hct (34.0-47.0) % MCV (81.0-99.0) fL MCH (27.0-31.0) pg MCHC (33.0-37.0) g/dL RDW (11.5-14.5) % Plt Count (130-400) K/uL MPV (7.2-11.7) fL Neut % (Auto) (50.0-75.0) % Lymph % (Auto) (20.0-40.0) % [place]pson % (Auto) (0.0-10.0) % Eos % (Auto) (0.0-4.0) % Baso % (Auto) (0.0-2.0) % Neut # (Auto) (1.8-7.0) K/uL Lymph # (Auto) (1.0-4.3) K/uL [place] # (Auto) (0.0-0.8) K/uL Eos # (Auto) (0.0-0.7) K/uL Baso # (Auto) (0.0-0.2) K/uL Puncture Site pCO2 (35-45) mm/Hg pO2 (80-100) mm/Hg HCO3 (21-28) mmol/L ABG pH (7.35-7.45) ABG Total CO2 (22-28) mmol/L ABG O2 Saturation (95-98) % ABG Base Excess (-2.0-3.0) mmol/L ABG Hemoglobin (11.7-17.4) g/dL ABG Carboxyhemoglobin (0.5-1.5) % POC ABG HHb (Measured) (0.0-5.0) % ABG Methemoglobin (0.0-3.0) % Jann Test A-a O2 Difference mm/Hg Respiratory Index Hgb O2 Saturation (95.0-98.0) % Vent Mode Mechanical Rate FiO2 % Tidal Volume PEEP Sodium 142 (132-148) mmol/L Potassium 3.7 (3.6-5.2) mmol/L Chloride 103 (98-107) mmol/L Carbon Dioxide 27 (22-30) mmol/L Anion Gap 16 (10-20) BUN 40 H (7-17) mg/dL Creatinine 1.7 H (0.7-1.2) mg/dL Est GFR ( Amer) 38 Est GFR (Non-Af Amer) 31 POC Glucose (mg/dL) 132 H 141 H (65-110) mg/dL Random Glucose 71 (65-105) mg/dL Calcium 7.8 L (8.6-10.4) mg/dl Phosphorus 4.0 (2.5-4.5) mg/dL Magnesium 2.0 (1.6-2.3) mg/dL Total Bilirubin 1.0 (0.2-1.3) mg/dL AST 20 (14-36) U/L ALT 31 (9-52) U/L Alkaline Phosphatase 127 H (38-126) U/L Total Protein 5.2 L (6.3-8.3) g/dL Albumin 2.5 L (3.5-5.0) g/dL Globulin 2.7 (2.2-3.9) gm/dL Albumin/Globulin Ratio 0.9 L (1.0-2.1) 04/13/18 04/13/18 04/13/18 Range/Units 06:28 05:17 05:10 WBC 10.3 (4.8-10.8) K/uL RBC 2.77 L (3.80-5.20) Mil/uL Hgb 8.1 L (11.0-16.0) g/dL Hct 23.2 L (34.0-47.0) % MCV 83.8 (81.0-99.0) fL MCH 29.0 (27.0-31.0) pg MCHC 34.6 (33.0-37.0) g/dL RDW 16.2 H (11.5-14.5) % Plt Count 126 L D (130-400) K/uL MPV 9.1 (7.2-11.7) fL Neut % (Auto) 81.2 H (50.0-75.0) % Lymph % (Auto) 10.9 L (20.0-40.0) % Upson % (Auto) 6.0 (0.0-10.0) % Eos % (Auto) 1.5 (0.0-4.0) % Baso % (Auto) 0.4 (0.0-2.0) % Neut # (Auto) 8.4 H (1.8-7.0) K/uL Lymph # (Auto) 1.1 (1.0-4.3) K/uL [place]pson # (Auto) 0.6 (0.0-0.8) K/uL Eos # (Auto) 0.2 (0.0-0.7) K/uL Baso # (Auto) 0.0 (0.0-0.2) K/uL Puncture Site Rr pCO2 36 (35-45) mm/Hg pO2 120 H (80-100) mm/Hg HCO3 26.9 (21-28) mmol/L ABG pH 7.47 H (7.35-7.45) ABG Total CO2 27.3 (22-28) mmol/L ABG O2 Saturation 98.7 H (95-98) % ABG Base Excess 2.5 (-2.0-3.0) mmol/L ABG Hemoglobin 8.4 L (11.7-17.4) g/dL ABG Carboxyhemoglobin 1.4 (0.5-1.5) % POC ABG HHb (Measured) 1.3 (0.0-5.0) % ABG Methemoglobin 1.2 (0.0-3.0) % Jann Test Pos A-a O2 Difference 120.0 mm/Hg Respiratory Index 1.0 Hgb O2 Saturation 96.1 (95.0-98.0) % Vent Mode Prvc Mechanical Rate 14 FiO2 40.0 % Tidal Volume 400 PEEP 5 Sodium (132-148) mmol/L Potassium (3.6-5.2) mmol/L Chloride (98-107) mmol/L Carbon Dioxide (22-30) mmol/L Anion Gap (10-20) BUN (7-17) mg/dL Creatinine (0.7-1.2) mg/dL Est GFR ( Amer) Est GFR (Non-Af Amer) POC Glucose (mg/dL) 118 H (65-110) mg/dL Random Glucose (65-105) mg/dL Calcium (8.6-10.4) mg/dl Phosphorus (2.5-4.5) mg/dL Magnesium (1.6-2.3) mg/dL Total Bilirubin (0.2-1.3) mg/dL AST (14-36) U/L ALT (9-52) U/L Alkaline Phosphatase (38-126) U/L Total Protein (6.3-8.3) g/dL Albumin (3.5-5.0) g/dL Globulin (2.2-3.9) gm/dL Albumin/Globulin Ratio (1.0-2.1) 04/12/18 Range/Units 23:45 WBC (4.8-10.8) K/uL RBC (3.80-5.20) Mil/uL Hgb (11.0-16.0) g/dL Hct (34.0-47.0) % MCV (81.0-99.0) fL MCH (27.0-31.0) pg MCHC (33.0-37.0) g/dL RDW (11.5-14.5) % Plt Count (130-400) K/uL MPV (7.2-11.7) fL Neut % (Auto) (50.0-75.0) % Lymph % (Auto) (20.0-40.0) % Upson % (Auto) (0.0-10.0) % Eos % (Auto) (0.0-4.0) % Baso % (Auto) (0.0-2.0) % Neut # (Auto) (1.8-7.0) K/uL Lymph # (Auto) (1.0-4.3) K/uL Upson # (Auto) (0.0-0.8) K/uL Eos # (Auto) (0.0-0.7) K/uL Baso # (Auto) (0.0-0.2) K/uL Puncture Site pCO2 (35-45) mm/Hg pO2 (80-100) mm/Hg HCO3 (21-28) mmol/L ABG pH (7.35-7.45) ABG Total CO2 (22-28) mmol/L ABG O2 Saturation (95-98) % ABG Base Excess (-2.0-3.0) mmol/L ABG Hemoglobin (11.7-17.4) g/dL ABG Carboxyhemoglobin (0.5-1.5) % POC ABG HHb (Measured) (0.0-5.0) % ABG Methemoglobin (0.0-3.0) % Jann Test A-a O2 Difference mm/Hg Respiratory Index Hgb O2 Saturation (95.0-98.0) % Vent Mode Mechanical Rate FiO2 % Tidal Volume PEEP Sodium (132-148) mmol/L Potassium (3.6-5.2) mmol/L Chloride (98-107) mmol/L Carbon Dioxide (22-30) mmol/L Anion Gap (10-20) BUN (7-17) mg/dL Creatinine (0.7-1.2) mg/dL Est GFR ( Amer) Est GFR (Non-Af Amer) POC Glucose (mg/dL) 75 (65-110) mg/dL Random Glucose (65-105) mg/dL Calcium (8.6-10.4) mg/dl Phosphorus (2.5-4.5) mg/dL Magnesium (1.6-2.3) mg/dL Total Bilirubin (0.2-1.3) mg/dL AST (14-36) U/L ALT (9-52) U/L Alkaline Phosphatase (38-126) U/L Total Protein (6.3-8.3) g/dL Albumin (3.5-5.0) g/dL Globulin (2.2-3.9) gm/dL Albumin/Globulin Ratio (1.0-2.1) Laboratory Results - last 24 hr 04/12/18 04/13/18 04/13/18 23:45 05:10 05:17 WBC RBC Hgb Hct MCV MCH MCHC RDW Plt Count MPV Neut % (Auto) Lymph % (Auto) Upson % (Auto) Eos % (Auto) Baso % (Auto) Neut # (Auto) Lymph # (Auto) Upson # (Auto) Eos # (Auto) Baso # (Auto) Puncture Site Rr pCO2 36 pO2 120 H HCO3 26.9 ABG pH 7.47 H ABG Total CO2 27.3 ABG O2 Saturation 98.7 H ABG Base Excess 2.5 ABG Hemoglobin 8.4 L ABG Carboxyhemoglobin 1.4 POC ABG HHb (Measured) 1.3 ABG Methemoglobin 1.2 Jann Test Pos A-a O2 Difference 120.0 Respiratory Index 1.0 Hgb O2 Saturation 96.1 Vent Mode Prvc Mechanical Rate 14 FiO2 40.0 Tidal Volume 400 PEEP 5 Sodium Potassium Chloride Carbon Dioxide Anion Gap BUN Creatinine Est GFR ( Amer) Est GFR (Non-Af Amer) POC Glucose (mg/dL) 75 118 H Random Glucose Calcium Phosphorus Magnesium Total Bilirubin AST ALT Alkaline Phosphatase Total Protein Albumin Globulin Albumin/Globulin Ratio 04/13/18 04/13/18 04/13/18 06:28 06:28 11:31 WBC 10.3 RBC 2.77 L Hgb 8.1 L Hct 23.2 L MCV 83.8 MCH 29.0 MCHC 34.6 RDW 16.2 H Plt Count 126 L D MPV 9.1 Neut % (Auto) 81.2 H Lymph % (Auto) 10.9 L Upson % (Auto) 6.0 Eos % (Auto) 1.5 Baso % (Auto) 0.4 Neut # (Auto) 8.4 H Lymph # (Auto) 1.1 Upson # (Auto) 0.6 Eos # (Auto) 0.2 Baso # (Auto) 0.0 Puncture Site pCO2 pO2 HCO3 ABG pH ABG Total CO2 ABG O2 Saturation ABG Base Excess ABG Hemoglobin ABG Carboxyhemoglobin POC ABG HHb (Measured) ABG Methemoglobin Jann Test A-a O2 Difference Respiratory Index Hgb O2 Saturation Vent Mode Mechanical Rate FiO2 Tidal Volume PEEP Sodium 142 Potassium 3.7 Chloride 103 Carbon Dioxide 27 Anion Gap 16 BUN 40 H Creatinine 1.7 H Est GFR ( Amer) 38 Est GFR (Non-Af Amer) 31 POC Glucose (mg/dL) 141 H Random Glucose 71 Calcium 7.8 L Phosphorus 4.0 Magnesium 2.0 Total Bilirubin 1.0 AST 20 ALT 31 Alkaline Phosphatase 127 H Total Protein 5.2 L Albumin 2.5 L Globulin 2.7 Albumin/Globulin Ratio 0.9 L 04/13/18 17:31 WBC RBC Hgb Hct MCV MCH MCHC RDW Plt Count MPV Neut % (Auto) Lymph % (Auto) Upson % (Auto) Eos % (Auto) Baso % (Auto) Neut # (Auto) Lymph # (Auto) Upson # (Auto) Eos # (Auto) Baso # (Auto) Puncture Site pCO2 pO2 HCO3 ABG pH ABG Total CO2 ABG O2 Saturation ABG Base Excess ABG Hemoglobin ABG Carboxyhemoglobin POC ABG HHb (Measured) ABG Methemoglobin Jann Test A-a O2 Difference Respiratory Index Hgb O2 Saturation Vent Mode Mechanical Rate FiO2 Tidal Volume PEEP Sodium Potassium Chloride Carbon Dioxide Anion Gap BUN Creatinine Est GFR ( Amer) Est GFR (Non-Af Amer) POC Glucose (mg/dL) 132 H Random Glucose Calcium Phosphorus Magnesium Total Bilirubin AST ALT Alkaline Phosphatase Total Protein Albumin Globulin Albumin/Globulin Ratio Fingerstick Blood Sugar Results: 141 Review of Systems - Review of Systems Systems not reviewed;Unavailable: Intubated Critical Care Progress Note - Nutrition Nutrition: Nutrition Category Date Time Status NPO Diet [DIET] Diets 04/06/18 Breakfast Active Assessment/Plan - Assessment and Plan (Free Text) Assessment: 52 year old female with Unspecified medical history who presented to [facility] ICU from [facility]. [place]. On Admission patient was found to have leukocytosis and significant skin excoriations, foul smelling ulcer in the right leg, multiple ecchymosis in the abdomen/groin area/lower extremity, necrotic tissue on lower extremity and bullae. Patiently found to be severely Anemic and was transfused a total of 5 PRBC's. Patient is edematous in the upper and lower extremities b/ l. 04/04: Transfused 2 Units of PRBC's 04/06: Lower extremity Wound Debridement, Began Discussion of Transfer to Burn Unit. 04/07: Extubated. 04/11: Patient accepted to to [facility] under Dr. Neal De La Rosa. Demographics Sheet faxed. Resident at [facility] asked for CD's of imaging, surgery reports, all cultures, hospital course, and nurse report. Patient to be transferred tomorrow morning. 04/12: Reintubated for airway protection in preparation for transfer 04/13: Levophed increased and vasopressin added on in AM due to hypotension 04/13: Transfer to [facility] cancelled. Dr. Neal De La Rosa stated that patient is too critical to be transferred and should go to the nearest burn unit for treatment. Plan: GCS: 10T Sedation: None Lethargic today Cardio: ECHO (04/02): Shows Normal EF (55%) A: Hypotension Pressors: Lovephed, Vasopressin (Started this AM) Pulm: CXR (04/04): Endotracheal and NG tube in place. Mild venous congestion. Bilateral hilar prominence. Tortuous ectatic aorta. Biapical pleural thickening with upper lobe granulomatous changes. CXR (04/10): New Right infrahilar atelectasis. Otherwise no change. CXR (04/11): Possible very small bilateral pleural effusion. ABG (04/04): pH-7.56, C02-24, 02-188, HCO3-24.6 ABG (04/05): pH-7.56, C02 - 26, 02-157, HCO3-23.9 ABG ( 04/07): pH-7.52, C02 - 27, 02 - 187, HCO3-24.6 Extubated on 04/07. Hypoxic Today, Placed on BIPAP 08/25, 12 RR, 40%FiO2 GI A: Elevated LFT's (Resolved) Abd/Pelvis CT (04/02/18): Prominent gallbladder distention with cholelithiasis. Clinically correlate for potential cholecystitis. Possible ileus or early distal small bowel obstruction. Potential segmental colitis in various large-bowel segments though this is limited in diagnostic power due to collapse of the majority of the large bowel. Mild bilateral hydroureteronephrosis potentially on the basis of enlarged myomatous uterus. Potential infectious or inflammatory process affecting the uterus. Myomatous uterine changes also noted. Anasarca and trace ascites. Hepatitis Panel - NEGATIVE OBGYN A: Uterine Mass TV Ultrasound to be done today. Renal A: LULA (Improving), Hypocalcemia, Hyperphosphetemia, Hyponatremia Complement Studies per ID - NEGATIVE [place] -137 Lambda-94, Lupus, MicroAlbumin w/ Cr - Elevated Total Protein - Elevated , Serum Immunifixation Detected. Renal US (04/04): B/L mild hyronephrosis. small non-obstructing renal calculi in Right Kidney phos binders, nephrovite, vit D, iron supplements per Nephro urology consult for b/l hydronephrosis per Nephro, Recs appreciated. Hemodialysis MWF, Dialysis Today. via permacath (place don 04/06) Monitor Electrolytes Heme/Onc A: Iron Def. Anemia s/p 5 Units of PRBCs, thromboycytopenia (Resolved). 2 Units of PRBC's transfused on 04/04/18. Hematology/Onc Consulted (Dr. Ospina), Recs Appreciated Myeloproliferative Disorder RUle OUT. BCR/ABL1 GENE PCR - Not Detected, MACY - Negative? , ASO- Negative HgB Stable CA 125 - 90.6 , CA19-9 - 286 , CEA - 5.7. All ordered tumor markers elevated. DIC Workup to rule out Purpura Fulminans -Fibrinogen (WNL) Fibrin Split Products - Order Cancelled in AM (Unknown who) , Pt/PTT, Retic Count (WNL), Haptoglobin (Elevated), D- Dimer (Elevated, likely due to Malignancy) Haptoglobin - 346.1 (Elevated) HIT - NEGATIVE EPO per Renal. 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 1 Unit of PRBC's Ordered. Rheumatology MAYI 6 - POSITIVE, MAYI Titer - 1:40, MAYI Pattern - Speckled Rh Factor - NEGATIVE ID A: Leukocytosis (Resolved), Purpura Fulminans? ID Consulted (Dr. Camarena, Recs appreciated) Lower Ext CT (04/02): Anasarca type pattern is favored over fasciitis of the bilateral lower extremities diffusely and is favored over fasciitis the fasciitis is still not excluded, a CT diagnosis is difficult to make without intravenous contrast. Necrotizing fasciitis is not identified however. Further clinical correlation is recommended. Blood Cultures (04/01 [place] ED): POSITIVE for Listeria Monocytogenes Blood Cultures (04/02): NEGATIVE Wound Cultures (04/02): Left and Right leg NEGATIVE (Prelim) ESR (04/03): WNL Hepatitis Panel - NEGATIVE Anitbiotics: Cont. Meropenem, Ampicillin. Start Gentamicin per ID, Start Flucanazole per ID General Surgery/Vascular Surgery Consulted, Recs Appreciated. Stool for Vibrio Cholera per ID Wound Cultures - POSITIVE for Coagulase Negative Staph - Likely contamination. DIC Workup showed Elevated Haptoglobin and elevated D-dimer. UA (04/11), positive for Leuk Es and WBCs. STAT urine Culture ordered. Febril on 04/13. Pancultures Ordered. CXR Unremarkable Integumentary A: Status post wound debridement of Lower Extremity on 04/07. Will discuss will family transfer to Burn Unit for better management of extensive skin wounds. Transfer to [facility] cancelled. Silvadene w/ Xeroform for Diffuse Wounds. Debridement Speciment - "Fragments of Fibroconnective Tissue with Acute and chronic inflammation, abscess formation, granulation tissue, bacaterial colonies and reactive tissue) Vitamin C BID Endo A: Vitamin D Def. 50,000 IU Q7D MSK A: Deconditioning PT/OT Proph Protonix IV Daily Heparin Q12 Dispo: Transfer to [facility] cancelled. Transfer to Burn Unit will depends on clinical condition and wound status. Family updated about cancelled trasnfer. Patient seen and discussed with ICU Attending Mik Huynh, PGY-1 <Isiah Seaman M - Last Filed: 04/13/18 18:41> CCU Objective - Vital Signs / Intake & Output Vital Signs (Last 4 hours): Vital Signs Temp Pulse Resp BP Pulse Ox 04/13/18 17:07 124 H 25 H 108/58 L 100 04/13/18 17:00 118 H 23 100 04/13/18 16:54 117 H 19 101/53 L 100 04/13/18 16:07 123 H 26 H 101/53 L 100 04/13/18 16:00 101.1 F H 124 H 27 H 100 04/13/18 15:07 124 H 28 H 99/52 L 100 04/13/18 15:00 122 H 26 H 100 Intake and Output (Last 8hrs): Intake & Output 04/13/18 04/13/18 04/13/18 06:59 14:59 22:59 Intake Total 918.8 1023.6 381.1 Output Total 60 0 Balance 918.8 963.6 381.1 Weight 116 lb 5 oz Intake: IV 254 254 10 Intake, IV Amount 454.8 509.6 266.1 Left Distal Port Internal 150 200 150 Jugular Left Medial Port Internal 4.8 9.6 3.6 Jugular Left Proximal Port 300.0 300.0 112.5 Internal Jugular Tube Feeding 210 260 105 Output: Urine 60 Urethral ([place]) 60 Emesis 0 0 Other: # Bowel Movements 0 1 - Medications Active Medications: Active Medications Generic Name Dose Route Start Last Admin Trade Name Freq PRN Reason Stop Dose Admin Acetaminophen 650 mg 04/13/18 07:37 04/13/18 16:45 Tylenol 650mg/20.3ml Solution Ud PO 650 mg Q4 PRN Administration Fever Albuterol/Ipratropium 3 ml 04/03/18 09:30 04/10/18 14:28 Duoneb 3 Mg/0.5 Mg (3 Ml) Ud INH 3 ml RQ6 PRN Administration Shortness of Breath Ascorbic Acid 500 mg 04/02/18 10:00 04/13/18 17:19 Vitamin C 500 Mg Tab PO 500 mg BID NOLAN Administration Calcium Acetate 1,334 mg 04/05/18 09:32 04/13/18 17:19 Phoslo PO 1,334 mg TIDCC NOLAN Administration Ergocalciferol 1 cap 04/04/18 10:45 04/11/18 10:27 Drisdol 50,000 Intl Units Cap PO 1 cap Q7D NOLAN Administration Heparin Sodium (Porcine) 5,000 units 04/13/18 22:00 Heparin SC Q12 NOLAN Meropenem 500 mg/ Sodium 100 mls @ 100 mls/hr 04/07/18 23:30 04/13/18 10:37 Chloride IVPB 04/14/18 23:31 100 mls/hr Q12H NOLAN Administration Protocol Norepinephrine Bitartrate 4 mg 254 mls @ 15.24 mls/hr 04/10/18 07:15 16:54 / Sodium Chloride IV 10 mcg/min .[id number] PRN 38.1 mls/hr TITRATE PER MD ORDER Administration Protocol 4 MCG/MIN Vasopressin 40 units/ Sodium 42 mls @ 0.63 mls/hr 04/13/18 03:30 04/13/18 03: 35 Chloride IV 0.02 units/min .Q24H NOLAN 1.26 mls/hr Protocol Administration 0.01 UNITS/MIN Fluconazole 50 mls @ 100 mls/hr 04/13/18 16:30 04/13/18 16:37 Diflucan Iv 100 Mg/50 Ml Ns IVPB 100 mls/hr DAILY NOLAN Administration Protocol Ampicillin 2 gm/ Sodium 100 mls @ 200 mls/hr 04/13/18 18:00 04/13/18 17:18 Chloride IVPB 200 mls/hr Q6H NOLAN Administration Protocol Lorazepam 1 mg 04/12/18 18:46 Ativan IVP Q3H PRN Anxiety Multivitamins/Vitamin C 5 ml 04/03/18 10:15 04/13/18 09:28 Multi-Delyn Liquid PO 5 ml DAILY NOLAN Administration Pantoprazole Sodium 40 mg 04/02/18 10:00 04/13/18 09:27 Protonix Inj IVP 40 mg DAILY NOLAN Administration Silver Sulfadiazine 0 ea 04/08/18 10:00 04/13/18 16:39 Silvadene 1% TOP 1 applic DAILY NOLAN Administration Silver Sulfadiazine 0 ea 04/11/18 10:00 04/13/18 09:28 Silvadene 1% TOP 1 applic Q12 NOLAN Administration Vitamin A 1 ea 04/10/18 23:00 04/12/18 04:14 Vitamin A & D Oint Ud Foilpak TOP 1 ea Q8 PRN Administration Dry Lips - Patient Studies Lab Studies: Lab Studies 04/13/18 04/13/18 04/13/18 Range/Units 17:31 11:31 06:28 WBC (4.8-10.8) K/uL RBC (3.80-5.20) Mil/uL Hgb (11.0-16.0) g/dL Hct (34.0-47.0) % MCV (81.0-99.0) fL MCH (27.0-31.0) pg MCHC (33.0-37.0) g/dL RDW (11.5-14.5) % Plt Count (130-400) K/uL MPV (7.2-11.7) fL Neut % (Auto) (50.0-75.0) % Lymph % (Auto) (20.0-40.0) % Upson % (Auto) (0.0-10.0) % Eos % (Auto) (0.0-4.0) % Baso % (Auto) (0.0-2.0) % Neut # (Auto) (1.8-7.0) K/uL Lymph # (Auto) (1.0-4.3) K/uL Upson # (Auto) (0.0-0.8) K/uL Eos # (Auto) (0.0-0.7) K/uL Baso # (Auto) (0.0-0.2) K/uL Puncture Site pCO2 (35-45) mm/Hg pO2 (80-100) mm/Hg HCO3 (21-28) mmol/L ABG pH (7.35-7.45) ABG Total CO2 (22-28) mmol/L ABG O2 Saturation (95-98) % ABG Base Excess (-2.0-3.0) mmol/L ABG Hemoglobin (11.7-17.4) g/dL ABG Carboxyhemoglobin (0.5-1.5) % POC ABG HHb (Measured) (0.0-5.0) % ABG Methemoglobin (0.0-3.0) % Jann Test A-a O2 Difference mm/Hg Respiratory Index Hgb O2 Saturation (95.0-98.0) % Vent Mode Mechanical Rate FiO2 % Tidal Volume PEEP Sodium 142 (132-148) mmol/L Potassium 3.7 (3.6-5.2) mmol/L Chloride 103 (98-107) mmol/L Carbon Dioxide 27 (22-30) mmol/L Anion Gap 16 (10-20) BUN 40 H (7-17) mg/dL Creatinine 1.7 H (0.7-1.2) mg/dL Est GFR ( Amer) 38 Est GFR (Non-Af Amer) 31 POC Glucose (mg/dL) 132 H 141 H (65-110) mg/dL Random Glucose 71 (65-105) mg/dL Calcium 7.8 L (8.6-10.4) mg/dl Phosphorus 4.0 (2.5-4.5) mg/dL Magnesium 2.0 (1.6-2.3) mg/dL Total Bilirubin 1.0 (0.2-1.3) mg/dL AST 20 (14-36) U/L ALT 31 (9-52) U/L Alkaline Phosphatase 127 H (38-126) U/L Total Protein 5.2 L (6.3-8.3) g/dL Albumin 2.5 L (3.5-5.0) g/dL Globulin 2.7 (2.2-3.9) gm/dL Albumin/Globulin Ratio 0.9 L (1.0-2.1) 04/13/18 04/13/18 04/13/18 Range/Units 06:28 05:17 05:10 WBC 10.3 (4.8-10.8) K/uL RBC 2.77 L (3.80-5.20) Mil/uL Hgb 8.1 L (11.0-16.0) g/dL Hct 23.2 L (34.0-47.0) % MCV 83.8 (81.0-99.0) fL MCH 29.0 (27.0-31.0) pg MCHC 34.6 (33.0-37.0) g/dL RDW 16.2 H (11.5-14.5) % Plt Count 126 L D (130-400) K/uL MPV 9.1 (7.2-11.7) fL Neut % (Auto) 81.2 H (50.0-75.0) % Lymph % (Auto) 10.9 L (20.0-40.0) % Upson % (Auto) 6.0 (0.0-10.0) % Eos % (Auto) 1.5 (0.0-4.0) % Baso % (Auto) 0.4 (0.0-2.0) % Neut # (Auto) 8.4 H (1.8-7.0) K/uL Lymph # (Auto) 1.1 (1.0-4.3) K/uL Upson # (Auto) 0.6 (0.0-0.8) K/uL Eos # (Auto) 0.2 (0.0-0.7) K/uL Baso # (Auto) 0.0 (0.0-0.2) K/uL Puncture Site Rr pCO2 36 (35-45) mm/Hg pO2 120 H (80-100) mm/Hg HCO3 26.9 (21-28) mmol/L ABG pH 7.47 H (7.35-7.45) ABG Total CO2 27.3 (22-28) mmol/L ABG O2 Saturation 98.7 H (95-98) % ABG Base Excess 2.5 (-2.0-3.0) mmol/L ABG Hemoglobin 8.4 L (11.7-17.4) g/dL ABG Carboxyhemoglobin 1.4 (0.5-1.5) % POC ABG HHb (Measured) 1.3 (0.0-5.0) % ABG Methemoglobin 1.2 (0.0-3.0) % Jann Test Pos A-a O2 Difference 120.0 mm/Hg Respiratory Index 1.0 Hgb O2 Saturation 96.1 (95.0-98.0) % Vent Mode Prvc Mechanical Rate 14 FiO2 40.0 % Tidal Volume 400 PEEP 5 Sodium (132-148) mmol/L Potassium (3.6-5.2) mmol/L Chloride (98-107) mmol/L Carbon Dioxide (22-30) mmol/L Anion Gap (10-20) BUN (7-17) mg/dL Creatinine (0.7-1.2) mg/dL Est GFR ( Amer) Est GFR (Non-Af Amer) POC Glucose (mg/dL) 118 H (65-110) mg/dL Random Glucose (65-105) mg/dL Calcium (8.6-10.4) mg/dl Phosphorus (2.5-4.5) mg/dL Magnesium (1.6-2.3) mg/dL Total Bilirubin (0.2-1.3) mg/dL AST (14-36) U/L ALT (9-52) U/L Alkaline Phosphatase (38-126) U/L Total Protein (6.3-8.3) g/dL Albumin (3.5-5.0) g/dL Globulin (2.2-3.9) gm/dL Albumin/Globulin Ratio (1.0-2.1) // Range/Units 23:45 WBC (4.8-10.8) K/uL RBC (3.80-5.20) Mil/uL Hgb (11.0-16.0) g/dL Hct (34.0-47.0) % MCV (81.0-99.0) fL MCH (27.0-31.0) pg MCHC (33.0-37.0) g/dL RDW (11.5-14.5) % Plt Count (130-400) K/uL MPV (7.2-11.7) fL Neut % (Auto) (50.0-75.0) % Lymph % (Auto) (20.0-40.0) % Upson % (Auto) (0.0-10.0) % Eos % (Auto) (0.0-4.0) % Baso % (Auto) (0.0-2.0) % Neut # (Auto) (1.8-7.0) K/uL Lymph # (Auto) (1.0-4.3) K/uL Upson # (Auto) (0.0-0.8) K/uL Eos # (Auto) (0.0-0.7) K/uL Baso # (Auto) (0.0-0.2) K/uL Puncture Site pCO2 (35-45) mm/Hg pO2 (80-100) mm/Hg HCO3 (21-28) mmol/L ABG pH (7.35-7.45) ABG Total CO2 (22-28) mmol/L ABG O2 Saturation (95-98) % ABG Base Excess (-2.0-3.0) mmol/L ABG Hemoglobin (11.7-17.4) g/dL ABG Carboxyhemoglobin (0.5-1.5) % POC ABG HHb (Measured) (0.0-5.0) % ABG Methemoglobin (0.0-3.0) % Jann Test A-a O2 Difference mm/Hg Respiratory Index Hgb O2 Saturation (95.0-98.0) % Vent Mode Mechanical Rate FiO2 % Tidal Volume PEEP Sodium (132-148) mmol/L Potassium (3.6-5.2) mmol/L Chloride (98-107) mmol/L Carbon Dioxide (22-30) mmol/L Anion Gap (10-20) BUN (7-17) mg/dL Creatinine (0.7-1.2) mg/dL Est GFR ( Amer) Est GFR (Non-Af Amer) POC Glucose (mg/dL) 75 (65-110) mg/dL Random Glucose (65-105) mg/dL Calcium (8.6-10.4) mg/dl Phosphorus (2.5-4.5) mg/dL Magnesium (1.6-2.3) mg/dL Total Bilirubin (0.2-1.3) mg/dL AST (14-36) U/L ALT (9-52) U/L Alkaline Phosphatase (38-126) U/L Total Protein (6.3-8.3) g/dL Albumin (3.5-5.0) g/dL Globulin (2.2-3.9) gm/dL Albumin/Globulin Ratio (1.0-2.1) Laboratory Results - last 24 hr 04/12/18 04/13/18 04/13/18 23:45 05:10 05:17 WBC RBC Hgb Hct MCV MCH MCHC RDW Plt Count MPV Neut % (Auto) Lymph % (Auto) Upson % (Auto) Eos % (Auto) Baso % (Auto) Neut # (Auto) Lymph # (Auto) Upson # (Auto) Eos # (Auto) Baso # (Auto) Puncture Site Rr pCO2 36 pO2 120 H HCO3 26.9 ABG pH 7.47 H ABG Total CO2 27.3 ABG O2 Saturation 98.7 H ABG Base Excess 2.5 ABG Hemoglobin 8.4 L ABG Carboxyhemoglobin 1.4 POC ABG HHb (Measured) 1.3 ABG Methemoglobin 1.2 Jann Test Pos A-a O2 Difference 120.0 Respiratory Index 1.0 Hgb O2 Saturation 96.1 Vent Mode Prvc Mechanical Rate 14 FiO2 40.0 Tidal Volume 400 PEEP 5 Sodium Potassium Chloride Carbon Dioxide Anion Gap BUN Creatinine Est GFR ( Amer) Est GFR (Non-Af Amer) POC Glucose (mg/dL) 75 118 H Random Glucose Calcium Phosphorus Magnesium Total Bilirubin AST ALT Alkaline Phosphatase Total Protein Albumin Globulin Albumin/Globulin Ratio 04/13/18 04/13/18 04/13/18 06:28 06:28 11:31 WBC 10.3 RBC 2.77 L Hgb 8.1 L Hct 23.2 L MCV 83.8 MCH 29.0 MCHC 34.6 RDW 16.2 H Plt Count 126 L D MPV 9.1 Neut % (Auto) 81.2 H Lymph % (Auto) 10.9 L Upson % (Auto) 6.0 Eos % (Auto) 1.5 Baso % (Auto) 0.4 Neut # (Auto) 8.4 H Lymph # (Auto) 1.1 Upson # (Auto) 0.6 Eos # (Auto) 0.2 Baso # (Auto) 0.0 Puncture Site pCO2 pO2 HCO3 ABG pH ABG Total CO2 ABG O2 Saturation ABG Base Excess ABG Hemoglobin ABG Carboxyhemoglobin POC ABG HHb (Measured) ABG Methemoglobin Jann Test A-a O2 Difference Respiratory Index Hgb O2 Saturation Vent Mode Mechanical Rate FiO2 Tidal Volume PEEP Sodium 142 Potassium 3.7 Chloride 103 Carbon Dioxide 27 Anion Gap 16 BUN 40 H Creatinine 1.7 H Est GFR ( Amer) 38 Est GFR (Non-Af Amer) 31 POC Glucose (mg/dL) 141 H Random Glucose 71 Calcium 7.8 L Phosphorus 4.0 Magnesium 2.0 Total Bilirubin 1.0 AST 20 ALT 31 Alkaline Phosphatase 127 H Total Protein 5.2 L Albumin 2.5 L Globulin 2.7 Albumin/Globulin Ratio 0.9 L 04/13/18 17:31 WBC RBC Hgb Hct MCV MCH MCHC RDW Plt Count MPV Neut % (Auto) Lymph % (Auto) Upson % (Auto) Eos % (Auto) Baso % (Auto) Neut # (Auto) Lymph # (Auto) Upson # (Auto) Eos # (Auto) Baso # (Auto) Puncture Site pCO2 pO2 HCO3 ABG pH ABG Total CO2 ABG O2 Saturation ABG Base Excess ABG Hemoglobin ABG Carboxyhemoglobin POC ABG HHb (Measured) ABG Methemoglobin Jann Test A-a O2 Difference Respiratory Index Hgb O2 Saturation Vent Mode Mechanical Rate FiO2 Tidal Volume PEEP Sodium Potassium Chloride Carbon Dioxide Anion Gap BUN Creatinine Est GFR ( Amer) Est GFR (Non-Af Amer) POC Glucose (mg/dL) 132 H Random Glucose Calcium Phosphorus Magnesium Total Bilirubin AST ALT Alkaline Phosphatase Total Protein Albumin Globulin Albumin/Globulin Ratio Critical Care Progress Note - Nutrition Nutrition: Nutrition Category Date Time Status NPO Diet [DIET] Diets 04/06/18 Breakfast Active Attending/Attestation - Attestation I have personally seen and examined this patient.: Yes I have fully participated in the care of the patient.: Yes I have reviewed all pertinent clinical information: Yes Notes (Text): 04/13/18 18:40 Today: March The Patient was seen and examined at the bedside, Medical records reviewed, and management issues were discussed and formulated with the house staff. I have reviewed all the relevant clinical, laboratory, hemodynamic, radiographic data and medications Events reviewed Pain issues, skin care, head of the bed elevation, glycemic control were addressed. Agree with above resident's assessment and treatment plans of care as transcribed in Dr. French note.
--- NOTE | 2018-04-13 19:02 | CP.PCM.PN ---
Subjective - Date & Time of Evaluation Date of Evaluation: 04/13/18 Time of Evaluation: 03:25 - Subjective Subjective: dictated Objective - Vital Signs/Intake and Output Vital Signs (last 24 hours): Temp Pulse Resp BP Pulse Ox 101.1 F H 117 H 27 H 109/68 100 04/13/18 16:00 04/13/18 18:07 04/13/18 18:07 04/13/18 18:07 04/13/18 18:07 Intake and Output: 04/13/18 04/14/18 18:59 06:59 Intake Total 1578.4 Output Total 60 Balance 1518.4 - Medications Medications: Current Medications Acetaminophen (Tylenol 650mg/20.3ml Solution Ud) 650 mg PO Q4 PRN PRN Reason: Fever Last Admin: 04/13/18 16:45 Dose: 650 mg Albuterol/Ipratropium (Duoneb 3 Mg/0.5 Mg (3 Ml) Ud) 3 ml INH RQ6 PRN PRN Reason: Shortness of Breath Last Admin: 04/10/18 14:28 Dose: 3 ml Ascorbic Acid (Vitamin C 500 Mg Tab) 500 mg PO BID [facility] Last Admin: 04/13/18 17:19 Dose: 500 mg Calcium Acetate (Phoslo) 1,334 mg PO TIDCC [facility] Last Admin: 04/13/18 17:19 Dose: 1,334 mg Ergocalciferol (Drisdol 50,000 Intl Units Cap) 1 cap PO Q7D [facility] Last Admin: 04/11/18 10:27 Dose: 1 cap Heparin Sodium (Porcine) (Heparin) 5,000 units SC Q12 [facility] Meropenem 500 mg/ Sodium (Chloride) 100 mls @ 100 mls/hr IVPB Q12H [facility] PRN Reason: Protocol Stop: 04/14/18 23:31 Last Admin: 04/13/18 10:37 Dose: 100 mls/hr Norepinephrine Bitartrate 4 mg (/ Sodium Chloride) 254 mls @ 15.24 mls/hr IV .[id number] PRN; Protocol; 4 MCG/MIN PRN Reason: TITRATE PER MD ORDER Last Admin: 04/13/18 16:54 Dose: 10 mcg/min, 38.1 mls/hr Vasopressin 40 units/ Sodium (Chloride) 42 mls @ 0.63 mls/hr IV .Q24H [facility]; 0.01 UNITS/MIN PRN Reason: Protocol Last Admin: 04/13/18 03:35 Dose: 0.02 units/min, 1.26 mls/hr Fluconazole (Diflucan Iv 100 Mg/50 Ml Ns) 50 mls @ 100 mls/hr IVPB DAILY [facility] PRN Reason: Protocol Last Admin: 04/13/18 16:37 Dose: 100 mls/hr Ampicillin 2 gm/ Sodium (Chloride) 100 mls @ 200 mls/hr IVPB Q6H [facility] PRN Reason: Protocol Last Admin: 04/13/18 17:18 Dose: 200 mls/hr Lorazepam (Ativan) 1 mg IVP Q3H PRN PRN Reason: Anxiety Multivitamins/Vitamin C (Multi-Delyn Liquid) 5 ml PO DAILY [facility] Last Admin: 04/13/18 09:28 Dose: 5 ml Pantoprazole Sodium (Protonix Inj) 40 mg IVP DAILY [facility] Last Admin: 04/13/18 09:27 Dose: 40 mg Silver Sulfadiazine (Silvadene 1%) 0 ea TOP DAILY [facility] Last Admin: 04/13/18 16:39 Dose: 1 applic Silver Sulfadiazine (Silvadene 1%) 0 ea TOP Q12 [facility] Last Admin: 04/13/18 09:28 Dose: 1 applic Vitamin A (Vitamin A & D Oint Ud Foilpak) 1 ea TOP Q8 PRN PRN Reason: Dry Lips Last Admin: 04/12/18 04:14 Dose: 1 ea - Labs Labs: 04/13/18 06:28 04/13/18 06:28 PT 11.2 SECONDS (9.7-12.2) 04/05/18 06:15 INR 1.0 04/05/18 06:15 APTT 29 SECONDS (21-34) 04/05/18 06:15
[2018-04-13] MEDS: Albuterol-Ipratrop 3 mg / 0.5 (3 ml) UD INH PRN (19:54)
[2018-04-14] MEDS: Acetaminophen 650mg/20.3ml solution UD PO PRN (00:07)
[2018-04-14] MEDS: AMPicillin 2 GM in Sodium Chloride 100 ML IVPB SCH ×4 (05:00→17:39)
--- NOTE | 2018-04-14 05:35 | PN ---
DATE: 04/13/2018 SUBJECTIVE: The patient today was seen. She has been intubated since I last saw her as she was in respiratory distress yesterday. PHYSICAL EXAMINATION: VITAL SIGNS: Temperature is 101.1, heart rate of 124, blood pressure remains on the low side 99/52. GENERAL: She has been lethargic. I have not heard any word from her since she is admitted, but it seemed that with eyes she was communicating before, but today she is back on the vent and she did spike a temp of _101____. HEENT: Head is atraumatic, normocephalic. Intubated. She has this dialysis catheter. She has now ET tube. NECK: Supple. LUNGS: Occasional rhonchi bilaterally. HEART: S1, S2 are tachycardic. SKIN: There is this whole skin which was blistered, is now peeling off and she is covered with a sheet and there are no new lesions, but this old lesions with blistering and ecchymotic areas which remain unchanged are extensive all over her legs as well as of her upper body and they are mostly unchanged, but less red now. EXTREMITIES: She has dressings. ZORAIDA bandages all over her lower extremity just below the knees. LABORATORY DATA: White count today is 10.3, hemoglobin is 8.1, hematocrit is 23.2, her platelets again dropped to 126. ABG shows oxygen saturation is 98.7, but now she is back on the ventilator and BUN is 40, creatinine is 1.7. So, the numbers are looking better, but the patient is now with respiratory failure still on vasopressors and she remains on ampicillin and meropenem since she was having fevers, I have added Diflucan covering for because I see this maceration all of the skin and would add Diflucan and also I increased the dose of ampicillin and continuing meropenem at this time and septic workup was done according to the nurse. 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 Still prognosis remains guarded. Will follow and at least she is on the vent support. I went to see the chest x-ray report. The chest x-ray today shows hypoinflated lungs, right basilar airspace opacity versus atelectasis, elevated right hemidiaphragm, decreasing previously seen left basal atelectasis but hypoinflated lungs. They did an abdominal ultrasound on 04/10/2018 which shows mild and bilateral symmetrical hydronephrosis, unchanged compared to prior study. Cholelithiasis without sonographic Rocha's sign, low volume ascites. Overall, no significant change from prior. ASSESSMENT AND PLAN: So, she does have bilateral hydronephrosis, renal failure, came with rhabdomyolysis, has Listeria, has this toxic epidermolysis of the skin and remains with respirator failure on vasopressors. I am now going to cover for fungal and Staphylococcus aureus. Initial was methicillin sensitive on the wounds, so should be covered with meropenem at this time and will follow. Festus Camarena MD RISSA
--- NOTE | 2018-04-14 05:49 | CP.PCM.PN ---
Subjective - Date & Time of Evaluation Date of Evaluation: 04/13/18 Time of Evaluation: 19:00 - Subjective Subjective: Patient extubated on 04/07. Patient reintubated on 04/12 in preparation for transfer, pt seen and examined, is sick, weak, lethargic, Transfer cancelled on 04/13. Dr. De La Rosa from [facility] will no longer accept patient. Objective - Vital Signs/Intake and Output Vital Signs (last 24 hours): Temp Pulse Resp BP Pulse Ox 99.9 F H 86 24 110/84 100 04/14/18 01:07 04/14/18 03:30 04/14/18 03:30 04/14/18 03:30 04/14/18 03:30 Intake and Output: 04/13/18 04/14/18 18:59 06:59 Intake Total 1578.4 879.3 Output Total 160 0 Balance 1418.4 879.3 - Medications Medications: Current Medications Acetaminophen (Tylenol 650mg/20.3ml Solution Ud) 650 mg PO Q4 PRN PRN Reason: Fever Last Admin: 04/14/18 00:07 Dose: 650 mg Albuterol/Ipratropium (Duoneb 3 Mg/0.5 Mg (3 Ml) Ud) 3 ml INH RQ6 PRN PRN Reason: Shortness of Breath Last Admin: 04/13/18 19:54 Dose: 3 ml Ascorbic Acid (Vitamin C 500 Mg Tab) 500 mg PO BID [facility] Last Admin: 04/13/18 17:19 Dose: 500 mg Calcium Acetate (Phoslo) 1,334 mg PO TIDCC [facility] Last Admin: 04/13/18 17:19 Dose: 1,334 mg Ergocalciferol (Drisdol 50,000 Intl Units Cap) 1 cap PO Q7D [facility] Last Admin: 04/11/18 10:27 Dose: 1 cap Heparin Sodium (Porcine) (Heparin) 5,000 units SC Q12 [facility] Last Admin: 04/13/18 21:47 Dose: 5,000 units Meropenem 500 mg/ Sodium (Chloride) 100 mls @ 100 mls/hr IVPB Q12H [facility] PRN Reason: Protocol Stop: 04/14/18 23:31 Last Admin: 04/13/18 22:30 Dose: 100 mls/hr Norepinephrine Bitartrate 4 mg (/ Sodium Chloride) 254 mls @ 15.24 mls/hr IV .[id number] PRN; Protocol; 4 MCG/MIN PRN Reason: TITRATE PER MD ORDER Last Admin: 04/14/18 00:00 Dose: 10 mcg/min, 38.1 mls/hr Vasopressin 40 units/ Sodium (Chloride) 42 mls @ 0.63 mls/hr IV .Q24H [facility]; 0.01 UNITS/MIN PRN Reason: Protocol Last Admin: 04/14/18 03:30 Dose: 0.02 units/min, 1.26 mls/hr Fluconazole (Diflucan Iv 100 Mg/50 Ml Ns) 50 mls @ 100 mls/hr IVPB DAILY [facility] PRN Reason: Protocol Last Admin: 04/13/18 16:37 Dose: 100 mls/hr Ampicillin 2 gm/ Sodium (Chloride) 100 mls @ 200 mls/hr IVPB Q6H [facility] PRN Reason: Protocol Last Admin: 04/14/18 05:00 Dose: 200 mls/hr Lorazepam (Ativan) 1 mg IVP Q3H PRN PRN Reason: Anxiety Multivitamins/Vitamin C (Multi-Delyn Liquid) 5 ml PO DAILY [facility] Last Admin: 04/13/18 09:28 Dose: 5 ml Pantoprazole Sodium (Protonix Inj) 40 mg IVP DAILY [facility] Last Admin: 04/13/18 09:27 Dose: 40 mg Silver Sulfadiazine (Silvadene 1%) 0 ea TOP DAILY [facility] Last Admin: 04/13/18 16:39 Dose: 1 applic Silver Sulfadiazine (Silvadene 1%) 0 ea TOP Q12 [facility] Last Admin: 04/13/18 21:48 Dose: 1 applic Vitamin A (Vitamin A & D Oint Ud Foilpak) 1 ea TOP Q8 PRN PRN Reason: Dry Lips Last Admin: 04/12/18 04:14 Dose: 1 ea - Labs Labs: 04/13/18 06:28 04/13/18 06:28 PT 11.2 SECONDS (9.7-12.2) 04/05/18 06:15 INR 1.0 04/05/18 06:15 APTT 29 SECONDS (21-34) 04/05/18 06:15 Assessment and Plan (1) Acute respiratory failure Status: Acute (2) Acute tubular necrosis Status: Acute (3) Listeria septicemia Status: Acute (4) Leukocytosis Status: Acute
[2018-04-14 06:13] LABS: ARTERIAL BLOOD GAS HCO3 23.1 mmol/L (21-28); ARTERIAL BLOOD GAS HEMOGLOBIN 7.5 g/dL (11.7-17.4); ARTERIAL BLOOD GAS O2 SAT 99.1 % (95-98); ARTERIAL BLOOD GAS PCO2 43 mm/Hg (35-45); ARTERIAL BLOOD GAS PH 7.34 (7.35-7.45); ARTERIAL BLOOD GAS PO2 186 mm/Hg (80-100); ARTERIAL BLOOD GAS TCO2 24.5 mmol/L (22-28)
[2018-04-14 06:16] LABS: BASO # 0.1 K/uL (0.0-0.2); BASO % 0.9 % (0.0-2.0); EOS # 0.1 K/uL (0.0-0.7); EOS % 0.6 % (0.0-4.0); HEMOGLOBIN 7.9 g/dL (11.0-16.0); LYMPH # 1.7 K/uL (1.0-4.3); LYMPH % 15.6 % (20.0-40.0); MEAN CELL VOLUME 85.6 fL (81.0-99.0); MEAN CORPUSCULAR HEMOGLOBIN 28.6 pg (27.0-31.0); MEAN CORPUSCULAR HGB CONC 33.5 g/dL (33.0-37.0); MEAN PLATELET VOLUME 9.1 fL (7.2-11.7); MONO % 9.6 % (0.0-10.0); NEUT % 73.3 % (50.0-75.0); RBC 2.76 Mil/uL (3.80-5.20); RED CELL DISTRIBUTION WIDTH 16.5 % (11.5-14.5); WHITE BLOOD COUNT 10.9 K/uL (4.8-10.8)
[2018-04-14 06:39] LABS: ALB/GLOB RATIO 0.8 (1.0-2.1); ALBUMIN 2.3 g/dL (3.5-5.0); CALCIUM 8.2 mg/dl (8.6-10.4)
[2018-04-14] MEDS: Albuterol-Ipratrop 3 mg / 0.5 (3 ml) UD INH PRN ×2 (08:01→19:50)
--- NOTE | 2018-04-14 08:30 | RAD ---
Chest x-ray History: Follow-up. Comparison: 04/13/2018 Findings: Patient rotated. Lines and tubes stable position. Multiple overlying wires and tubing. Moderate venous congestion. Patchy consolidative changes in the bilateral hilar regions and left lung base. Elevated right hemidiaphragm. Nodular density at the lateral aspect of the right lung base likely represents external wiring. Impression: Patient rotated. Lines and tubes stable position. Multiple overlying wires and tubing. Moderate venous congestion. Patchy consolidative changes in the bilateral hilar regions and left lung base. Elevated right hemidiaphragm. Nodular density at the lateral aspect of the right lung base likely represents external wiring.
[2018-04-14] MEDS: Multiple Vitamins Oral Solution PO SCH (09:13)
[2018-04-14] MEDS: Fluconazole IV 100mg/50 ml NS 50 ML IVPB SCH (09:15)
[2018-04-14] MEDS: Silver Sulfadiazine 1% Cream (400 gm) TOP SCH ×3 (09:22→21:11)
[2018-04-14] MEDS ORDERED: Sodium Chloride 0.9% 1,000 ML IV ONE (10:07)
[2018-04-14] MEDS: Albumin Human 25% (12.5 gm/50 ml) IV SCH ×3 (10:44→21:14)
--- NOTE | 2018-04-14 13:29 | CP.PCM.PN ---
Subjective - Date & Time of Evaluation Date of Evaluation: 04/14/18 Time of Evaluation: 11:00 - Subjective Subjective: dialysis note She was seen on hemodialysis now. Patient is receiving intravenous fluid normal saline because of the hypotension. Patient on vasopressors Patient is lethargic Albumin was given as well. Prognosis guarded Objective - Vital Signs/Intake and Output Vital Signs (last 24 hours): Temp Pulse Resp BP Pulse Ox 97.3 F L 75 18 147/91 H 100 04/14/18 12:00 04/14/18 12:40 04/14/18 12:40 04/14/18 12:40 04/14/18 12:40 Intake and Output: 04/14/18 04/14/18 06:59 18:59 Intake Total 1479.4 1461.0 Output Total 350 0 Balance 1129.4 1461.0 - Medications Medications: Current Medications Acetaminophen (Tylenol 650mg/20.3ml Solution Ud) 650 mg PO Q4 PRN PRN Reason: Fever Last Admin: 04/14/18 00:07 Dose: 650 mg Albumin Human (Albumin Human 25% (12.5 Gm/50 Ml)) 25 gm IV Q6H [facility] Stop: 04/15/18 16:16 Last Admin: 04/14/18 10:44 Dose: 25 gm Albuterol/Ipratropium (Duoneb 3 Mg/0.5 Mg (3 Ml) Ud) 3 ml INH RQ6 PRN PRN Reason: Shortness of Breath Last Admin: 04/14/18 08:01 Dose: 3 ml Ascorbic Acid (Vitamin C 500 Mg Tab) 500 mg PO BID [facility] Last Admin: 04/14/18 09:13 Dose: 500 mg Calcium Acetate (Phoslo) 1,334 mg PO TIDCC [facility] Last Admin: 04/14/18 12:34 Dose: 1,334 mg Ergocalciferol (Drisdol 50,000 Intl Units Cap) 1 cap PO Q7D [facility] Last Admin: 04/11/18 10:27 Dose: 1 cap Heparin Sodium (Porcine) (Heparin) 5,000 units SC Q12 [facility] Last Admin: 04/14/18 10:50 Dose: 5,000 units Meropenem 500 mg/ Sodium (Chloride) 100 mls @ 100 mls/hr IVPB Q12H [facility] PRN Reason: Protocol Stop: 04/14/18 23:31 Last Admin: 04/13/18 22:30 Dose: 100 mls/hr Norepinephrine Bitartrate 4 mg (/ Sodium Chloride) 254 mls @ 15.24 mls/hr IV .[id number] PRN; Protocol; 4 MCG/MIN PRN Reason: TITRATE PER MD ORDER Last Admin: 04/14/18 08:01 Dose: 10 mcg/min, 38.1 mls/hr Vasopressin 40 units/ Sodium (Chloride) 42 mls @ 0.63 mls/hr IV .Q24H [facility]OLAN; 0.01 UNITS/MIN PRN Reason: Protocol Last Admin: 04/14/18 03:30 Dose: 0.02 units/min, 1.26 mls/hr Fluconazole (Diflucan Iv 100 Mg/50 Ml Ns) 50 mls @ 100 mls/hr IVPB DAILY [facility] PRN Reason: Protocol Last Admin: 04/14/18 09:15 Dose: 100 mls/hr Ampicillin 2 gm/ Sodium (Chloride) 100 mls @ 200 mls/hr IVPB Q6H [facility] PRN Reason: Protocol Last Admin: 04/14/18 13:18 Dose: 200 mls/hr Lorazepam (Ativan) 1 mg IVP Q3H PRN PRN Reason: Anxiety Multivitamins/Vitamin C (Multi-Delyn Liquid) 5 ml PO DAILY [facility] Last Admin: 04/14/18 09:13 Dose: 5 ml Pantoprazole Sodium (Protonix Inj) 40 mg IVP DAILY [facility] Last Admin: 04/14/18 09:13 Dose: 40 mg Silver Sulfadiazine (Silvadene 1%) 0 ea TOP DAILY [facility] Last Admin: 04/13/18 16:39 Dose: 1 applic Silver Sulfadiazine (Silvadene 1%) 0 ea TOP Q12 [facility] Last Admin: 04/14/18 09:22 Dose: 1 applic Vitamin A (Vitamin A & D Oint Ud Foilpak) 1 ea TOP Q8 PRN PRN Reason: Dry Lips Last Admin: 04/12/18 04:14 Dose: 1 ea - Labs Labs: 04/14/18 05:53 04/14/18 05:55 PT 11.2 SECONDS (9.7-12.2) 04/05/18 06:15 INR 1.0 04/05/18 06:15 APTT 29 SECONDS (21-34) 04/05/18 06:15 - Constitutional Appears: In Acute Distress - Eye Exam Eye Exam: Conjunctival injection - ENT Exam ENT Exam: Mucous Membranes Dry - Neck Exam Neck Exam: absent: Lymphadenopathy - Respiratory Exam Respiratory Exam: Rhonchi. absent: Chest Wall Tenderness - GI/Abdominal Exam GI & Abdominal Exam: Soft, Normal Bowel Sounds - Extremities Exam Extremities Exam: absent: Calf Tenderness - Back Exam Back Exam: absent: CVA tenderness (L), CVA tenderness (R) - Neurological Exam Neurological Exam: Altered - Psychiatric Exam Psychiatric exam: Flat Affect - Skin Skin Exam: absent: Cyanosis Assessment and Plan (1) Acute tubular necrosis Assessment & Plan: Acute renal failure. Patient receiving dialysis.now. Patient appears to be hypovolemic she was given 1000 mL of normal saline now on dialysis also 25% albumin has been given Sodium bath 138 Potassium bath 3 mEq Bicarbonate bath 34 Patient tolerated dialysis. Patient still very extensive skin rash patient receiving antibiotics as per ID recommendation with the renal doses consideration. Anuric Acute Kidney Injury (N17.9) ? 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
[2018-04-14] MEDS: Meropenem 500 MG in Sodium Chloride 0.9% 100 ML IVPB SCH (14:05)
--- NOTE | 2018-04-14 14:37 | CP.PCM.PN ---
Subjective - Date & Time of Evaluation Date of Evaluation: 04/14/18 Time of Evaluation: 02:00 - Subjective Subjective: dictated Objective - Vital Signs/Intake and Output Vital Signs (last 24 hours): Temp Pulse Resp BP Pulse Ox 97.3 F L 75 18 147/91 H 100 04/14/18 12:00 04/14/18 12:40 04/14/18 12:40 04/14/18 12:40 04/14/18 12:40 Intake and Output: 04/14/18 04/14/18 06:59 18:59 Intake Total 1479.4 1461.0 Output Total 350 0 Balance 1129.4 1461.0 - Medications Medications: Current Medications Acetaminophen (Tylenol 650mg/20.3ml Solution Ud) 650 mg PO Q4 PRN PRN Reason: Fever Last Admin: 04/14/18 00:07 Dose: 650 mg Albumin Human (Albumin Human 25% (12.5 Gm/50 Ml)) 25 gm IV Q6H [facility] Stop: 04/15/18 16:16 Last Admin: 04/14/18 10:44 Dose: 25 gm Albuterol/Ipratropium (Duoneb 3 Mg/0.5 Mg (3 Ml) Ud) 3 ml INH RQ6 PRN PRN Reason: Shortness of Breath Last Admin: 04/14/18 08:01 Dose: 3 ml Ascorbic Acid (Vitamin C 500 Mg Tab) 500 mg PO BID [facility] Last Admin: 04/14/18 09:13 Dose: 500 mg Calcium Acetate (Phoslo) 1,334 mg PO TIDCC [facility] Last Admin: 04/14/18 12:34 Dose: 1,334 mg Ergocalciferol (Drisdol 50,000 Intl Units Cap) 1 cap PO Q7D [facility] Last Admin: 04/11/18 10:27 Dose: 1 cap Heparin Sodium (Porcine) (Heparin) 5,000 units SC Q12 [facility] Last Admin: 04/14/18 10:50 Dose: 5,000 units Meropenem 500 mg/ Sodium (Chloride) 100 mls @ 100 mls/hr IVPB Q12H [facility] PRN Reason: Protocol Stop: 04/14/18 23:31 Last Admin: 04/14/18 14:05 Dose: 100 mls/hr Norepinephrine Bitartrate 4 mg (/ Sodium Chloride) 254 mls @ 15.24 mls/hr IV .[id number] PRN; Protocol; 4 MCG/MIN PRN Reason: TITRATE PER MD ORDER Last Admin: 04/14/18 08:01 Dose: 10 mcg/min, 38.1 mls/hr Vasopressin 40 units/ Sodium (Chloride) 42 mls @ 0.63 mls/hr IV .Q24H [facility]AN; 0.01 UNITS/MIN PRN Reason: Protocol Last Admin: 04/14/18 03:30 Dose: 0.02 units/min, 1.26 mls/hr Fluconazole (Diflucan Iv 100 Mg/50 Ml Ns) 50 mls @ 100 mls/hr IVPB DAILY [facility] PRN Reason: Protocol Last Admin: 04/14/18 09:15 Dose: 100 mls/hr Ampicillin 2 gm/ Sodium (Chloride) 100 mls @ 200 mls/hr IVPB Q6H [facility] PRN Reason: Protocol Last Admin: 04/14/18 13:18 Dose: 200 mls/hr Lorazepam (Ativan) 1 mg IVP Q3H PRN PRN Reason: Anxiety Multivitamins/Vitamin C (Multi-Delyn Liquid) 5 ml PO DAILY [facility] Last Admin: 04/14/18 09:13 Dose: 5 ml Nystatin (Nystop Topical Powder) 1 applic TOP BID NOLAN Pantoprazole Sodium (Protonix Inj) 40 mg IVP DAILY NOLAN Last Admin: 04/14/18 09:13 Dose: 40 mg Silver Sulfadiazine (Silvadene 1%) 0 ea TOP DAILY NOLAN Last Admin: 04/13/18 16:39 Dose: 1 applic Silver Sulfadiazine (Silvadene 1%) 0 ea TOP Q12 NOLAN Last Admin: 04/14/18 09:22 Dose: 1 applic Vitamin A (Vitamin A & D Oint Ud Foilpak) 1 ea TOP Q8 PRN PRN Reason: Dry Lips Last Admin: 04/12/18 04:14 Dose: 1 ea - Labs Labs: 04/14/18 05:53 04/14/18 05:55 PT 11.2 SECONDS (9.7-12.2) 04/05/18 06:15 INR 1.0 04/05/18 06:15 APTT 29 SECONDS (21-34) 04/05/18 06:15
--- NOTE | 2018-04-14 15:47 | CP.CCUPN ---
Addendum entered and electronically signed by Mik Huynh DO 04/14/18 17:38: Plastic Surgery Consulted. Original Note: <Mik Huynh - Last Filed: 04/14/18 15:43> CCU Subjective - Physician Review Subjective (Free Text): Patient extubated on 04/07. Patient reintubated on 04/12 in preparation for transfer Transfer cancelled on 04/13. Dr. De La Rosa from [facility] will no longer accept patient. CCU Objective - Vital Signs / Intake & Output Vital Signs (Last 4 hours): Vital Signs Temp Pulse Pulse Resp BP BP Pulse Ox 04/14/18 15:00 88 20 100 04/14/18 14:28 83 18 134/73 100 04/14/18 14:00 80 18 100 04/14/18 13:21 74 16 169/79 H 100 04/14/18 13:10 97.3 F L 71 16 141/82 100 04/14/18 13:08 75 17 141/80 100 04/14/18 13:00 76 73 18 138/84 100 04/14/18 12:52 75 16 138/84 100 04/14/18 12:40 75 18 147/91 H 100 04/14/18 12:37 75 17 147/91 H 100 04/14/18 12:23 77 17 152/90 H 100 04/14/18 12:20 78 18 152/90 H 100 04/14/18 12:08 77 16 144/76 100 04/14/18 12:00 97.1 F L 75 70 15 149/68 100 04/14/18 11:52 77 14 149/68 100 Intake and Output (Last 8hrs): Intake & Output 04/14/18 04/14/18 04/14/18 06:59 14:59 22:59 Intake Total 1289.6 2072.6 131.2 Output Total 350 0 110 Balance 939.6 2072.6 21.2 Weight 115 lb 5 oz Intake: IV 550 218 Intake, IV Amount 609.6 1444.6 131.2 Left Distal Port Internal 300 1150 100 Jugular Left Medial Port Internal 9.6 9.6 1.2 Jugular Left Proximal Port 300.0 285.0 30 Internal Jugular Tube Feeding 130 210 Blood Product 0 Red Blood Cells Cpd As1 0 Lr Unit [id number] Other 200 Output: Drainage 0 HD fluid removal 0 Urine 350 110 Urethral ([place]) 350 110 Emesis 0 Other: # Bowel Movements 4 1 - Physical Exam Head: Positive for: Atraumatic Mouth: Positive for: Moist Mucous Membranes Respiratory/Chest: Positive for: Good Air Exchange. Negative for: Respiratory Distress, Accessory Muscle Use Cardiovascular: Positive for: Normal S1, S2, Gallop Abdomen: Positive for: Distention, Other (abdomen reveals a 5 cm circular bulb no Bowel sounds in bulb). Negative for: Tenderness, Rebound, Guarding Upper Extremity: Positive for: Edema. Negative for: Cyanosis Lower Extremity: Positive for: Edema, Other (non-blanching ecchymotic lesions covering more than 25 percent of lower extremity and abdomen. S/P debridement with Dressing b/L. ) Neurological: Negative for: GCS=15 (11T) Psychiatric: Positive for: Alert, Oriented x 3 - Medications Active Medications: Active Medications Generic Name Dose Route Start Last Admin Trade Name Freq PRN Reason Stop Dose Admin Acetaminophen 650 mg 04/13/18 07:37 04/14/18 00:07 Tylenol 650mg/20.3ml Solution Ud PO 650 mg Q4 PRN Administration Fever Albumin Human 25 gm 04/14/18 10:15 04/14/18 10:44 Albumin Human 25% (12.5 Gm/50 Ml) IV 04/15/18 16:16 25 gm Q6H NOLAN Administration Albuterol/Ipratropium 3 ml 04/03/18 09:30 04/14/18 08:01 Duoneb 3 Mg/0.5 Mg (3 Ml) Ud INH 3 ml RQ6 PRN Administration Shortness of Breath Ascorbic Acid 500 mg 04/02/18 10:00 04/14/18 09:13 Vitamin C 500 Mg Tab PO 500 mg BID NOLAN Administration Calcium Acetate 1,334 mg 04/05/18 09:32 04/14/18 12:34 Phoslo PO 1,334 mg TIDCC NOLAN Administration Ergocalciferol 1 cap 04/04/18 10:45 04/11/18 10:27 Drisdol 50,000 Intl Units Cap PO 1 cap Q7D NOLAN Administration Heparin Sodium (Porcine) 5,000 units 04/13/18 22:00 04/14/18 10:50 Heparin SC 5,000 units Q12 NOLAN Administration Meropenem 500 mg/ Sodium 100 mls @ 100 mls/hr 04/07/18 23:30 04/14/18 14:05 Chloride IVPB 04/14/18 23:31 100 mls/hr Q12H NOLAN Administration Protocol Norepinephrine Bitartrate 4 mg 254 mls @ 15.24 mls/hr 04/10/18 07:15 14:00 / Sodium Chloride IV 8 mcg/min .[id number] PRN 30.48 mls/hr TITRATE PER MD ORDER Titration Protocol 4 MCG/MIN Vasopressin 40 units/ Sodium 42 mls @ 0.63 mls/hr 04/13/18 03:30 04/14/18 03: 30 Chloride IV 0.02 units/min .Q24H NOLAN 1.26 mls/hr Protocol Administration 0.01 UNITS/MIN Fluconazole 50 mls @ 100 mls/hr 04/13/18 16:30 04/14/18 09:15 Diflucan Iv 100 Mg/50 Ml Ns IVPB 100 mls/hr DAILY NOLAN Administration Protocol Ampicillin 2 gm/ Sodium 100 mls @ 200 mls/hr 04/13/18 18:00 04/14/18 13:18 Chloride IVPB 200 mls/hr Q6H NOLAN Administration Protocol Lorazepam 1 mg 04/12/18 18:46 Ativan IVP Q3H PRN Anxiety Multivitamins/Vitamin C 5 ml 04/03/18 10:15 04/14/18 09:13 Multi-Delyn Liquid PO 5 ml DAILY NOLAN Administration Nystatin 1 applic 04/14/18 18:00 Nystop Topical Powder TOP BID NOLAN Pantoprazole Sodium 40 mg 04/02/18 10:00 04/14/18 09:13 Protonix Inj IVP 40 mg DAILY NOLAN Administration Silver Sulfadiazine 0 ea 04/08/18 10:00 04/13/18 16:39 Silvadene 1% TOP 1 applic DAILY NOLAN Administration Silver Sulfadiazine 0 ea 04/11/18 10:00 04/14/18 09:22 Silvadene 1% TOP 1 applic Q12 NOLAN Administration Vitamin A 1 ea 04/10/18 23:00 04/12/18 04:14 Vitamin A & D Oint Ud Foilpak TOP 1 ea Q8 PRN Administration Dry Lips - Patient Studies Lab Studies: Microbiology Studies 04/12/18 19:12 Urine Culture - Final Urine Yeast Species 04/13/18 09:20 Urine Culture - Final Urine Yeast Species 04/13/18 08:55 Blood Culture - Preliminary Blood NO GROWTH AFTER 24 HOURS 04/13/18 08:28 Blood Culture - Preliminary Blood NO GROWTH AFTER 24 HOURS Lab Studies 04/14/18 04/14/18 04/14/18 Range/Units 11:19 10:21 05:55 WBC (4.8-10.8) K/uL RBC (3.80-5.20) Mil/uL Hgb (11.0-16.0) g/dL Hct (34.0-47.0) % MCV (81.0-99.0) fL MCH (27.0-31.0) pg MCHC (33.0-37.0) g/dL RDW (11.5-14.5) % Plt Count (130-400) K/uL MPV (7.2-11.7) fL Neut % (Auto) (50.0-75.0) % Lymph % (Auto) (20.0-40.0) % [place] % (Auto) (0.0-10.0) % Eos % (Auto) (0.0-4.0) % Baso % (Auto) (0.0-2.0) % Neut # (Auto) (1.8-7.0) K/uL Lymph # (Auto) (1.0-4.3) K/uL [place] # (Auto) (0.0-0.8) K/uL Eos # (Auto) (0.0-0.7) K/uL Baso # (Auto) (0.0-0.2) K/uL Puncture Site pCO2 (35-45) mm/Hg pO2 (80-100) mm/Hg HCO3 (21-28) mmol/L ABG pH (7.35-7.45) ABG Total CO2 (22-28) mmol/L ABG O2 Saturation (95-98) % ABG Base Excess (-2.0-3.0) mmol/L ABG Hemoglobin (11.7-17.4) g/dL ABG Carboxyhemoglobin (0.5-1.5) % POC ABG HHb (Measured) (0.0-5.0) % ABG Methemoglobin (0.0-3.0) % Jann Test A-a O2 Difference mm/Hg Respiratory Index Hgb O2 Saturation (95.0-98.0) % Vent Mode Mechanical Rate FiO2 % Tidal Volume PEEP Sodium 145 (132-148) mmol/L Potassium 3.4 L (3.6-5.2) mmol/L Chloride 106 (98-107) mmol/L Carbon Dioxide 25 (22-30) mmol/L Anion Gap 18 (10-20) BUN 60 H (7-17) mg/dL Creatinine 2.4 H (0.7-1.2) mg/dL Est GFR ( Amer) 26 Est GFR (Non-Af Amer) 21 POC Glucose (mg/dL) 100 (65-110) mg/dL Random Glucose 92 (65-105) mg/dL Calcium 8.2 L (8.6-10.4) mg/dl Phosphorus 5.2 H (2.5-4.5) mg/dL Magnesium 2.3 (1.6-2.3) mg/dL Total Bilirubin 0.9 (0.2-1.3) mg/dL AST 20 (14-36) U/L ALT 25 (9-52) U/L Alkaline Phosphatase 121 (38-126) U/L Total Protein 5.1 L (6.3-8.3) g/dL Albumin 2.3 L (3.5-5.0) g/dL Globulin 2.8 (2.2-3.9) gm/dL Albumin/Globulin Ratio 0.8 L (1.0-2.1) Blood Type O POSITIVE Antibody Screen Negative 04/14/18 04/14/18 04/14/18 Range/Units 05:53 05:29 05:25 WBC 10.9 H (4.8-10.8) K/uL RBC 2.76 L (3.80-5.20) Mil/uL Hgb 7.9 L (11.0-16.0) g/dL Hct 23.6 L (34.0-47.0) % MCV 85.6 (81.0-99.0) fL MCH 28.6 (27.0-31.0) pg MCHC 33.5 (33.0-37.0) g/dL RDW 16.5 H (11.5-14.5) % Plt Count 162 (130-400) K/uL MPV 9.1 (7.2-11.7) fL Neut % (Auto) 73.3 (50.0-75.0) % Lymph % (Auto) 15.6 L (20.0-40.0) % Hudson % (Auto) 9.6 (0.0-10.0) % Eos % (Auto) 0.6 (0.0-4.0) % Baso % (Auto) 0.9 (0.0-2.0) % Neut # (Auto) 8.0 H (1.8-7.0) K/uL Lymph # (Auto) 1.7 (1.0-4.3) K/uL [place] # (Auto) 1.0 H (0.0-0.8) K/uL Eos # (Auto) 0.1 (0.0-0.7) K/uL Baso # (Auto) 0.1 (0.0-0.2) K/uL Puncture Site L brac pCO2 43 (35-45) mm/Hg pO2 186 H (80-100) mm/Hg HCO3 23.1 (21-28) mmol/L ABG pH 7.34 L (7.35-7.45) ABG Total CO2 24.5 (22-28) mmol/L ABG O2 Saturation 99.1 H (95-98) % ABG Base Excess -2.4 L (-2.0-3.0) mmol/L ABG Hemoglobin 7.5 L (11.7-17.4) g/dL ABG Carboxyhemoglobin 1.5 (0.5-1.5) % POC ABG HHb (Measured) 0.9 (0.0-5.0) % ABG Methemoglobin 1.2 (0.0-3.0) % Jann Test Na A-a O2 Difference 45.0 mm/Hg Respiratory Index 0.2 Hgb O2 Saturation 96.4 (95.0-98.0) % Vent Mode Prvc Mechanical Rate 14 FiO2 40.0 % Tidal Volume 400 PEEP 5 Sodium (132-148) mmol/L Potassium (3.6-5.2) mmol/L Chloride (98-107) mmol/L Carbon Dioxide (22-30) mmol/L Anion Gap (10-20) BUN (7-17) mg/dL Creatinine (0.7-1.2) mg/dL Est GFR ( Amer) Est GFR (Non-Af Amer) POC Glucose (mg/dL) 105 (65-110) mg/dL Random Glucose (65-105) mg/dL Calcium (8.6-10.4) mg/dl Phosphorus (2.5-4.5) mg/dL Magnesium (1.6-2.3) mg/dL Total Bilirubin (0.2-1.3) mg/dL AST (14-36) U/L ALT (9-52) U/L Alkaline Phosphatase (38-126) U/L Total Protein (6.3-8.3) g/dL Albumin (3.5-5.0) g/dL Globulin (2.2-3.9) gm/dL Albumin/Globulin Ratio (1.0-2.1) Blood Type Antibody Screen 04/13/18 04/13/18 Range/Units 23:25 17:31 WBC (4.8-10.8) K/uL RBC (3.80-5.20) Mil/uL Hgb (11.0-16.0) g/dL Hct (34.0-47.0) % MCV (81.0-99.0) fL MCH (27.0-31.0) pg MCHC (33.0-37.0) g/dL RDW (11.5-14.5) % Plt Count (130-400) K/uL MPV (7.2-11.7) fL Neut % (Auto) (50.0-75.0) % Lymph % (Auto) (20.0-40.0) % [place] % (Auto) (0.0-10.0) % Eos % (Auto) (0.0-4.0) % Baso % (Auto) (0.0-2.0) % Neut # (Auto) (1.8-7.0) K/uL Lymph # (Auto) (1.0-4.3) K/uL [place] # (Auto) (0.0-0.8) K/uL Eos # (Auto) (0.0-0.7) K/uL Baso # (Auto) (0.0-0.2) K/uL Puncture Site pCO2 (35-45) mm/Hg pO2 (80-100) mm/Hg HCO3 (21-28) mmol/L ABG pH (7.35-7.45) ABG Total CO2 (22-28) mmol/L ABG O2 Saturation (95-98) % ABG Base Excess (-2.0-3.0) mmol/L ABG Hemoglobin (11.7-17.4) g/dL ABG Carboxyhemoglobin (0.5-1.5) % POC ABG HHb (Measured) (0.0-5.0) % ABG Methemoglobin (0.0-3.0) % Jann Test A-a O2 Difference mm/Hg Respiratory Index Hgb O2 Saturation (95.0-98.0) % Vent Mode Mechanical Rate FiO2 % Tidal Volume PEEP Sodium (132-148) mmol/L Potassium (3.6-5.2) mmol/L Chloride (98-107) mmol/L Carbon Dioxide (22-30) mmol/L Anion Gap (10-20) BUN (7-17) mg/dL Creatinine (0.7-1.2) mg/dL Est GFR ( Amer) Est GFR (Non-Af Amer) POC Glucose (mg/dL) 131 H 132 H (65-110) mg/dL Random Glucose (65-105) mg/dL Calcium (8.6-10.4) mg/dl Phosphorus (2.5-4.5) mg/dL Magnesium (1.6-2.3) mg/dL Total Bilirubin (0.2-1.3) mg/dL AST (14-36) U/L ALT (9-52) U/L Alkaline Phosphatase (38-126) U/L Total Protein (6.3-8.3) g/dL Albumin (3.5-5.0) g/dL Globulin (2.2-3.9) gm/dL Albumin/Globulin Ratio (1.0-2.1) Blood Type Antibody Screen Laboratory Results - last 24 hr 04/13/18 04/13/18 04/14/18 17:31 23:25 05:25 WBC RBC Hgb Hct MCV MCH MCHC RDW Plt Count MPV Neut % (Auto) Lymph % (Auto) [place] % (Auto) Eos % (Auto) Baso % (Auto) Neut # (Auto) Lymph # (Auto) Hudson # (Auto) Eos # (Auto) Baso # (Auto) Puncture Site pCO2 pO2 HCO3 ABG pH ABG Total CO2 ABG O2 Saturation ABG Base Excess ABG Hemoglobin ABG Carboxyhemoglobin POC ABG HHb (Measured) ABG Methemoglobin Jann Test A-a O2 Difference Respiratory Index Hgb O2 Saturation Vent Mode Mechanical Rate FiO2 Tidal Volume PEEP Sodium Potassium Chloride Carbon Dioxide Anion Gap BUN Creatinine Est GFR ( Amer) Est GFR (Non-Af Amer) POC Glucose (mg/dL) 132 H 131 H 105 Random Glucose Calcium Phosphorus Magnesium Total Bilirubin AST ALT Alkaline Phosphatase Total Protein Albumin Globulin Albumin/Globulin Ratio Blood Type Antibody Screen 04/14/18 04/14/18 04/14/18 05:29 05:53 05:55 WBC 10.9 H RBC 2.76 L Hgb 7.9 L Hct 23.6 L MCV 85.6 MCH 28.6 MCHC 33.5 RDW 16.5 H Plt Count 162 MPV 9.1 Neut % (Auto) 73.3 Lymph % (Auto) 15.6 L [place] % (Auto) 9.6 Eos % (Auto) 0.6 Baso % (Auto) 0.9 Neut # (Auto) 8.0 H Lymph # (Auto) 1.7 Hudson # (Auto) 1.0 H Eos # (Auto) 0.1 Baso # (Auto) 0.1 Puncture Site L brac pCO2 43 pO2 186 H HCO3 23.1 ABG pH 7.34 L ABG Total CO2 24.5 ABG O2 Saturation 99.1 H ABG Base Excess -2.4 L ABG Hemoglobin 7.5 L ABG Carboxyhemoglobin 1.5 POC ABG HHb (Measured) 0.9 ABG Methemoglobin 1.2 Jann Test Na A-a O2 Difference 45.0 Respiratory Index 0.2 Hgb O2 Saturation 96.4 Vent Mode Prvc Mechanical Rate 14 FiO2 40.0 Tidal Volume 400 PEEP 5 Sodium 145 Potassium 3.4 L Chloride 106 Carbon Dioxide 25 Anion Gap 18 BUN 60 H Creatinine 2.4 H Est GFR ( Amer) 26 Est GFR (Non-Af Amer) 21 POC Glucose (mg/dL) Random Glucose 92 Calcium 8.2 L Phosphorus 5.2 H Magnesium 2.3 Total Bilirubin 0.9 AST 20 ALT 25 Alkaline Phosphatase 121 Total Protein 5.1 L Albumin 2.3 L Globulin 2.8 Albumin/Globulin Ratio 0.8 L Blood Type Antibody Screen 04/14/18 04/14/18 10:21 11:19 WBC RBC Hgb Hct MCV MCH MCHC RDW Plt Count MPV Neut % (Auto) Lymph % (Auto) [place] % (Auto) Eos % (Auto) Baso % (Auto) Neut # (Auto) Lymph # (Auto) Hudson # (Auto) Eos # (Auto) Baso # (Auto) Puncture Site pCO2 pO2 HCO3 ABG pH ABG Total CO2 ABG O2 Saturation ABG Base Excess ABG Hemoglobin ABG Carboxyhemoglobin POC ABG HHb (Measured) ABG Methemoglobin Jann Test A-a O2 Difference Respiratory Index Hgb O2 Saturation Vent Mode Mechanical Rate FiO2 Tidal Volume PEEP Sodium Potassium Chloride Carbon Dioxide Anion Gap BUN Creatinine Est GFR ( Amer) Est GFR (Non-Af Amer) POC Glucose (mg/dL) 100 Random Glucose Calcium Phosphorus Magnesium Total Bilirubin AST ALT Alkaline Phosphatase Total Protein Albumin Globulin Albumin/Globulin Ratio Blood Type O POSITIVE Antibody Screen Negative Fingerstick Blood Sugar Results: 100 Review of Systems - Review of Systems Systems not reviewed;Unavailable: Intubated Critical Care Progress Note - Nutrition Nutrition: Nutrition Category Date Time Status NPO Diet [DIET] Diets 04/06/18 Breakfast Active Assessment/Plan - Assessment and Plan (Free Text) Assessment: 52 year old female with Unspecified medical history who presented to [facility] [place] ICU from [facility] Emergency Room. [place]. On Admission patient was found to have leukocytosis and significant skin excoriations, foul smelling ulcer in the right leg, multiple ecchymosis in the abdomen/groin area/lower extremity, necrotic tissue on lower extremity and bullae. Patiently found to be severely Anemic and was transfused a total of 5 PRBC's. Patient is edematous in the upper and lower extremities b/ l. 04/04: Transfused 2 Units of PRBC's 04/06: Lower extremity Wound Debridement, Began Discussion of Transfer to Burn Unit. 04/07: Extubated. 04/11: Patient accepted to to [facility] under Dr. Neal De La Rosa. Demographics Sheet faxed. Resident at [facility] asked for CD's of imaging, surgery reports, all cultures, hospital course, and nurse report. Patient to be transferred tomorrow morning. 04/12: Reintubated for airway protection in preparation for transfer 04/13: Levophed increased and vasopressin added on in AM due to hypotension 04/13: Transfer to [facility] cancelled. Dr. Neal De La Rosa stated that patient is too critical to be transferred and should go to the nearest burn unit for treatment. 04/14: [facility] called regarding transfer. Stated they wouldn't accept patient because she is not burned nor does she have confirmed Anthony Zachariah syndrome Plan: Neuro: GCS: 11T Sedation: None Lethargic today Cardio: ECHO (04/02): Shows Normal EF (55%) A: Hypotension Pressors: Lovephed, Vasopressin (Started this AM). Wean Pressors as tolerated. 1 L Fluid Bolus Given today 1 Unit of PRBC ordered today. Pulm: CXR (04/04): Endotracheal and NG tube in place. Mild venous congestion. Bilateral hilar prominence. Tortuous ectatic aorta. Biapical pleural thickening with upper lobe granulomatous changes. CXR (04/10): New Right infrahilar atelectasis. Otherwise no change. CXR (04/11): Possible very small bilateral pleural effusion. ABG (04/04): pH-7.56, C02-24, 02-188, HCO3-24.6 ABG (04/05): pH-7.56, C02 - 26, 02-157, HCO3-23.9 ABG ( 04/07): pH-7.52, C02 - 27, 02 - 187, HCO3-24.6 Extubated on 04/07. Hypoxic Today, Placed on BIPAP 08/25, 12 RR, 40%FiO2 GI A: Elevated LFT's (Resolved) Abd/Pelvis CT (04/02/18): Prominent gallbladder distention with cholelithiasis. Clinically correlate for potential cholecystitis. Possible ileus or early distal small bowel obstruction. Potential segmental colitis in various large-bowel segments though this is limited in diagnostic power due to collapse of the majority of the large bowel. Mild bilateral hydroureteronephrosis potentially on the basis of enlarged myomatous uterus. Potential infectious or inflammatory process affecting the uterus. Myomatous uterine changes also noted. Anasarca and trace ascites. Hepatitis Panel - NEGATIVE OBGYN A: Uterine Mass TV Ultrasound PENDING for when patients are more stable. Renal A: LULA (Improving), Hypocalcemia, Hyperphosphetemia, Hyponatremia Complement Studies per ID - NEGATIVE [place] -137 Lambda-94, Lupus, MicroAlbumin w/ Cr - Elevated Total Protein - Elevated , Serum Immunifixation Detected. Renal US (04/04): B/L mild hyronephrosis. small non-obstructing renal calculi in Right Kidney phos binders, nephrovite, vit D, iron supplements per Nephro urology consult for b/l hydronephrosis per Nephro, Recs appreciated. Hemodialysis MWF, Dialysis Today. via permacath (placed on 04/06) Monitor Electrolytes Heme/Onc A: Iron Def. Anemia s/p 5 Units of PRBCs, thromboycytopenia (Resolved). 2 Units of PRBC's transfused on 04/04/18. Hematology/Onc Consulted (Dr. Ospina), Recs Appreciated Myeloproliferative Disorder RUle OUT. BCR/ABL1 GENE PCR - Not Detected, MACY - Negative? , ASO- Negative HgB Stable CA 125 - 90.6 , CA19-9 - 286 , CEA - 5.7. All ordered tumor markers elevated. DIC Workup to rule out Purpura Fulminans -Fibrinogen (WNL) Fibrin Split Products - Order Cancelled in AM (Unknown who) , Pt/PTT, Retic Count (WNL), Haptoglobin (Elevated), D- Dimer (Elevated, likely due to Malignancy) Haptoglobin - 346.1 (Elevated) HIT - NEGATIVE EPO per Renal. Ferrous Gluconated 324mg PO TID Anti Parietal Cell Ab- Elevated 1 Unit of PRBC's Ordered. Rheumatology MAYI 6 - POSITIVE, MAYI Titer - 1:40, MAYI Pattern - Speckled Rh Factor - NEGATIVE ID A: Leukocytosis (Resolved), Purpura Fulminans? ID Consulted (Dr. Camarena, Recs appreciated) Lower Ext CT (04/02): Anasarca type pattern is favored over fasciitis of the bilateral lower extremities diffusely and is favored over fasciitis the fasciitis is still not excluded, a CT diagnosis is difficult to make without intravenous contrast. Necrotizing fasciitis is not identified however. Further clinical correlation is recommended. Blood Cultures (04/01 [facility]): POSITIVE for Listeria Monocytogenes Blood Cultures (04/02): NEGATIVE Blood Culture (04/13): NEGATIVE Wound Cultures (04/02): Left and Right leg NEGATIVE (Prelim) ESR (04/03): WNL Hepatitis Panel - NEGATIVE Anitbiotics: Cont. Meropenem, Ampicillin. Gentamicin, and Flucanazol. General Surgery/Vascular Surgery Consulted, Recs Appreciated. Stool for Vibrio Cholera per ID Wound Cultures - POSITIVE for Coagulase Negative Staph - Likely contamination. DIC Workup showed Elevated Haptoglobin and elevated D-dimer. UA (04/11), positive for Leuk Es and WBCs. Urine Culture (04/12) - POSITIVE for YEAST. Febril on 04/13. Pancultures Ordered. CXR Unremarkable Integumentary A: Status post wound debridement of Lower Extremity on 04/07. Will discuss will family transfer to Burn Unit for better management of extensive skin wounds. Transfer to [facility] cancelled. [facility] will not accept patient. Silvadene w/ Xeroform for Diffuse Wounds. Debridement Speciment - "Fragments of Fibroconnective Tissue with Acute and chronic inflammation, abscess formation, granulation tissue, bacaterial colonies and reactive tissue) Vitamin C BID Endo A: Vitamin D Def. 50,000 IU Q7D MSK A: Deconditioning PT/OT Proph Protonix IV Daily Heparin Q12 Dispo: Transfer to [facility] cancelled. Transfer to Burn Unit will depends on clinical condition and wound status. [facility] also will not accept patient. Next 2 choices would be [facility]. Patient seen and discussed with ICU Attending Mik Huynh, PGY-1 <Jabari Vazquez - Last Filed: 04/15/18 16:09> CCU Objective - Vital Signs / Intake & Output Vital Signs (Last 4 hours): Vital Signs Temp Pulse Resp BP Pulse Ox 04/15/18 14:00 104 H 21 98 04/15/18 13:37 98 H 27 H 113/60 100 04/15/18 13:00 102 H 19 97 04/15/18 12:33 100 H 19 106/56 L 98 04/15/18 12:25 97.4 F L 101 H 16 106/56 L Intake and Output (Last 8hrs): Intake & Output 04/15/18 04/15/18 04/15/18 06:59 14:59 22:59 Intake Total 689.6 2006.2 Balance 689.6 2005.2 Weight 98 lb 8 oz Intake: IV 32 Intake, IV Amount 409.6 984.2 Left Distal Port Internal 400 430 Jugular Left Medial Port Internal 9.6 4.2 Jugular Left Proximal Port 0 550 Internal Jugular Tube Feeding 280 140 Blood Product 650 Red Blood Cells Cpd As1 325 Lr Unit [id number] Red Blood Cells Cpd As1 325 Lr Unit [id number] Other 200 Other: # Voids Urethral ([place]) 0 # Bowel Movements 3 1 - Medications Active Medications: Active Medications Generic Name Dose Route Start Last Admin Trade Name Freq PRN Reason Stop Dose Admin Acetaminophen 650 mg 04/13/18 07:37 04/15/18 02:10 Tylenol 650mg/20.3ml Solution Ud PO 650 mg Q4 PRN Administration Fever Albumin Human 25 gm 04/14/18 10:15 04/15/18 10:03 Albumin Human 25% (12.5 Gm/50 Ml) IV 04/15/18 16:16 25 gm Q6H NOLAN Administration Albuterol/Ipratropium 3 ml 04/15/18 08:00 04/15/18 13:35 Duoneb 3 Mg/0.5 Mg (3 Ml) Ud INH 3 ml RQ6 NOLAN Administration Ascorbic Acid 500 mg 04/02/18 10:00 04/15/18 10:03 Vitamin C 500 Mg Tab PO 500 mg BID NOLAN Administration Ergocalciferol 1 cap 04/04/18 10:45 04/11/18 10:27 Drisdol 50,000 Intl Units Cap PO 1 cap Q7D NOLAN Administration Heparin Sodium (Porcine) 5,000 units 04/13/18 22:00 04/15/18 10:03 Heparin SC 5,000 units Q12 NOLAN Administration Norepinephrine Bitartrate 4 mg 254 mls @ 15.24 mls/hr 04/10/18 07:15 22:00 / Sodium Chloride IV 0 mcg/min .[id number] PRN 0 mls/hr TITRATE PER MD ORDER Titration Protocol 4 MCG/MIN Vasopressin 40 units/ Sodium 42 mls @ 0.63 mls/hr 04/13/18 03:30 04/15/18 11: 38 Chloride IV 0 units/min .Q24H NLOAN 0 mls/hr Protocol Titration 0.01 UNITS/MIN Fluconazole 50 mls @ 100 mls/hr 04/13/18 16:30 04/15/18 10:06 Diflucan Iv 100 Mg/50 Ml Ns IVPB 100 mls/hr DAILY NOLAN Administration Protocol Ampicillin 2 gm/ Sodium 100 mls @ 200 mls/hr 04/13/18 18:00 04/15/18 11:36 Chloride IVPB 200 mls/hr Q6H NOLAN Administration Protocol Meropenem 500 mg/ Sodium 100 mls @ 100 mls/hr 04/15/18 02:00 04/15/18 14:35 Chloride IVPB 100 mls/hr Q12H NOLAN Administration Protocol Multivitamins/Vitamin C 5 ml 04/03/18 10:15 04/15/18 10:06 Multi-Delyn Liquid PO 5 ml DAILY NOLAN Administration Nystatin 1 applic 04/14/18 18:00 04/15/18 10:05 Nystop Topical Powder TOP 1 applic BID NOLAN Administration Pantoprazole Sodium 40 mg 04/02/18 10:00 04/15/18 10:03 Protonix Inj IVP 40 mg DAILY NOLAN Administration Potassium Chloride 40 meq 04/15/18 12:00 04/15/18 14:37 Potassium Chloride Oral Soln PO 04/15/18 18:01 40 meq Q6 NOLAN Administration Silver Sulfadiazine 0 ea 04/08/18 10:00 04/15/18 10:05 Silvadene 1% TOP 1 applic DAILY NOLAN Administration Silver Sulfadiazine 0 ea 04/11/18 10:00 04/15/18 10:05 Silvadene 1% TOP 1 applic Q12 NOLAN Administration Vitamin A 1 ea 04/10/18 23:00 04/12/18 04:14 Vitamin A & D Oint Ud Foilpak TOP 1 ea Q8 PRN Administration Dry Lips - Patient Studies Lab Studies: Microbiology Studies 04/13/18 11:48 Gram Stain - Final Sputum Sputum Culture - Final NORMAL ORAL OCTAVIO 04/13/18 08:55 Blood Culture - Preliminary Blood NO GROWTH AFTER 48 HOURS 04/13/18 08:28 Blood Culture - Preliminary Blood NO GROWTH AFTER 48 HOURS 04/12/18 19:12 Urine Culture - Final Urine Yeast Species Lab Studies 04/15/18 04/15/18 04/15/18 Range/Units 11:51 11:46 06:18 WBC 3.7 L D (4.8-10.8) K/uL RBC 2.57 L (3.80-5.20) Mil/uL Hgb 7.5 L (11.0-16.0) g/dL Hct 22.0 L (34.0-47.0) % MCV 85.5 (81.0-99.0) fL MCH 29.2 (27.0-31.0) pg MCHC 34.2 (33.0-37.0) g/dL RDW 15.8 H (11.5-14.5) % Plt Count 130 (130-400) K/uL MPV 9.0 (7.2-11.7) fL Neut % (Auto) 63.9 (50.0-75.0) % Lymph % (Auto) 22.5 (20.0-40.0) % [place] % (Auto) 12.0 H (0.0-10.0) % Eos % (Auto) 0.4 (0.0-4.0) % Baso % (Auto) 1.2 (0.0-2.0) % Neut # (Auto) 2.3 (1.8-7.0) K/uL Lymph # (Auto) 0.8 L (1.0-4.3) K/uL [place] # (Auto) 0.4 (0.0-0.8) K/uL Eos # (Auto) 0.0 (0.0-0.7) K/uL Baso # (Auto) 0.0 (0.0-0.2) K/uL Puncture Site Rba pCO2 38 (35-45) mm/Hg pO2 85 (80-100) mm/Hg HCO3 23.6 (21-28) mmol/L ABG pH 7.39 (7.35-7.45) ABG Total CO2 24.2 (22-28) mmol/L ABG O2 Saturation 97.9 (95-98) % ABG Base Excess -1.7 (-2.0-3.0) mmol/L ABG Hemoglobin (11.7-17.4) g/dL ABG Carboxyhemoglobin (0.5-1.5) % POC ABG HHb (Measured) (0.0-5.0) % ABG Methemoglobin (0.0-3.0) % Jann Test Na ABG Potassium 3.0 L (3.6-5.2) mmol/L A-a O2 Difference 81.0 mm/Hg Respiratory Index 1.0 Hgb O2 Saturation (95.0-98.0) % Glucose 83 (65-105) mg/dl Lactate 1.6 (0.7-2.1) mmol/L Liter Flow 6.0 Vent Mode Mechanical Rate FiO2 30.0 % Tidal Volume PEEP Sodium 144.0 (132-148) mmol/L Potassium (3.6-5.2) mmol/L Chloride 110.0 H (98-107) mmol/L Carbon Dioxide (22-30) mmol/L Anion Gap (10-20) BUN (7-17) mg/dL Creatinine (0.7-1.2) mg/dL Est GFR ( Amer) Est GFR (Non-Af Amer) POC Glucose (mg/dL) 97 (65-110) mg/dL Random Glucose (65-105) mg/dL Calcium (8.6-10.4) mg/dl Phosphorus (2.5-4.5) mg/dL Magnesium (1.6-2.3) mg/dL Total Bilirubin (0.2-1.3) mg/dL AST (14-36) U/L ALT (9-52) U/L Alkaline Phosphatase (38-126) U/L Total Protein (6.3-8.3) g/dL Albumin (3.5-5.0) g/dL Globulin (2.2-3.9) gm/dL Albumin/Globulin Ratio (1.0-2.1) Arterial Blood Potassium 3.0 L (3.6-5.2) mmol/L C. difficile Ag & Toxin (NEGATIVE) Blood Type Antibody Screen 04/15/18 04/15/18 04/15/18 Range/Units 06:16 05:22 05:10 WBC (4.8-10.8) K/uL RBC (3.80-5.20) Mil/uL Hgb (11.0-16.0) g/dL Hct (34.0-47.0) % MCV (81.0-99.0) fL MCH (27.0-31.0) pg MCHC (33.0-37.0) g/dL RDW (11.5-14.5) % Plt Count (130-400) K/uL MPV (7.2-11.7) fL Neut % (Auto) (50.0-75.0) % Lymph % (Auto) (20.0-40.0) % Hudson % (Auto) (0.0-10.0) % Eos % (Auto) (0.0-4.0) % Baso % (Auto) (0.0-2.0) % Neut # (Auto) (1.8-7.0) K/uL Lymph # (Auto) (1.0-4.3) K/uL Hudson # (Auto) (0.0-0.8) K/uL Eos # (Auto) (0.0-0.7) K/uL Baso # (Auto) (0.0-0.2) K/uL Puncture Site Rb pCO2 37 (35-45) mm/Hg pO2 92 (80-100) mm/Hg HCO3 25.6 (21-28) mmol/L ABG pH 7.44 (7.35-7.45) ABG Total CO2 26.2 (22-28) mmol/L ABG O2 Saturation 98.6 H (95-98) % ABG Base Excess 0.9 (-2.0-3.0) mmol/L ABG Hemoglobin 7.7 L (11.7-17.4) g/dL ABG Carboxyhemoglobin 1.6 H (0.5-1.5) % POC ABG HHb (Measured) 1.4 (0.0-5.0) % ABG Methemoglobin 1.0 (0.0-3.0) % Jann Test Na ABG Potassium (3.6-5.2) mmol/L A-a O2 Difference 76.0 mm/Hg Respiratory Index 0.8 Hgb O2 Saturation 96.0 (95.0-98.0) % Glucose (65-105) mg/dl Lactate (0.7-2.1) mmol/L Liter Flow Vent Mode Prvc Mechanical Rate 18 FiO2 30.0 % Tidal Volume 400 PEEP 5 Sodium 145 (132-148) mmol/L Potassium 2.8 L (3.6-5.2) mmol/L Chloride 105 (98-107) mmol/L Carbon Dioxide 24 (22-30) mmol/L Anion Gap 19 (10-20) BUN 40 H (7-17) mg/dL Creatinine 1.3 H (0.7-1.2) mg/dL Est GFR ( Amer) 52 Est GFR (Non-Af Amer) 43 POC Glucose (mg/dL) 106 (65-110) mg/dL Random Glucose 69 (65-105) mg/dL Calcium 7.5 L (8.6-10.4) mg/dl Phosphorus 3.5 (2.5-4.5) mg/dL Magnesium 2.0 (1.6-2.3) mg/dL Total Bilirubin 1.0 (0.2-1.3) mg/dL AST 17 (14-36) U/L ALT 24 (9-52) U/L Alkaline Phosphatase 78 (38-126) U/L Total Protein 4.8 L (6.3-8.3) g/dL Albumin 2.5 L (3.5-5.0) g/dL Globulin 2.2 (2.2-3.9) gm/dL Albumin/Globulin Ratio 1.1 (1.0-2.1) Arterial Blood Potassium (3.6-5.2) mmol/L C. difficile Ag & Toxin (NEGATIVE) Blood Type Antibody Screen 04/14/18 04/14/18 04/14/18 Range/Units 23:33 18:14 17:46 WBC (4.8-10.8) K/uL RBC (3.80-5.20) Mil/uL Hgb (11.0-16.0) g/dL Hct (34.0-47.0) % MCV (81.0-99.0) fL MCH (27.0-31.0) pg MCHC (33.0-37.0) g/dL RDW (11.5-14.5) % Plt Count (130-400) K/uL MPV (7.2-11.7) fL Neut % (Auto) (50.0-75.0) % Lymph % (Auto) (20.0-40.0) % Hudson % (Auto) (0.0-10.0) % Eos % (Auto) (0.0-4.0) % Baso % (Auto) (0.0-2.0) % Neut # (Auto) (1.8-7.0) K/uL Lymph # (Auto) (1.0-4.3) K/uL Hudson # (Auto) (0.0-0.8) K/uL Eos # (Auto) (0.0-0.7) K/uL Baso # (Auto) (0.0-0.2) K/uL Puncture Site pCO2 (35-45) mm/Hg pO2 (80-100) mm/Hg HCO3 (21-28) mmol/L ABG pH (7.35-7.45) ABG Total CO2 (22-28) mmol/L ABG O2 Saturation (95-98) % ABG Base Excess (-2.0-3.0) mmol/L ABG Hemoglobin (11.7-17.4) g/dL ABG Carboxyhemoglobin (0.5-1.5) % POC ABG HHb (Measured) (0.0-5.0) % ABG Methemoglobin (0.0-3.0) % Jann Test ABG Potassium (3.6-5.2) mmol/L A-a O2 Difference mm/Hg Respiratory Index Hgb O2 Saturation (95.0-98.0) % Glucose (65-105) mg/dl Lactate (0.7-2.1) mmol/L Liter Flow Vent Mode Mechanical Rate FiO2 % Tidal Volume PEEP Sodium (132-148) mmol/L Potassium (3.6-5.2) mmol/L Chloride (98-107) mmol/L Carbon Dioxide (22-30) mmol/L Anion Gap (10-20) BUN (7-17) mg/dL Creatinine (0.7-1.2) mg/dL Est GFR ( Amer) Est GFR (Non-Af Amer) POC Glucose (mg/dL) 99 85 (65-110) mg/dL Random Glucose (65-105) mg/dL Calcium (8.6-10.4) mg/dl Phosphorus (2.5-4.5) mg/dL Magnesium (1.6-2.3) mg/dL Total Bilirubin (0.2-1.3) mg/dL AST (14-36) U/L ALT (9-52) U/L Alkaline Phosphatase (38-126) U/L Total Protein (6.3-8.3) g/dL Albumin (3.5-5.0) g/dL Globulin (2.2-3.9) gm/dL Albumin/Globulin Ratio (1.0-2.1) Arterial Blood Potassium (3.6-5.2) mmol/L C. difficile Ag & Toxin Negative (NEGATIVE) Blood Type Antibody Screen 04/14/18 Range/Units 10:21 WBC (4.8-10.8) K/uL RBC (3.80-5.20) Mil/uL Hgb (11.0-16.0) g/dL Hct (34.0-47.0) % MCV (81.0-99.0) fL MCH (27.0-31.0) pg MCHC (33.0-37.0) g/dL RDW (11.5-14.5) % Plt Count (130-400) K/uL MPV (7.2-11.7) fL Neut % (Auto) (50.0-75.0) % Lymph % (Auto) (20.0-40.0) % Hudson % (Auto) (0.0-10.0) % Eos % (Auto) (0.0-4.0) % Baso % (Auto) (0.0-2.0) % Neut # (Auto) (1.8-7.0) K/uL Lymph # (Auto) (1.0-4.3) K/uL Hudson # (Auto) (0.0-0.8) K/uL Eos # (Auto) (0.0-0.7) K/uL Baso # (Auto) (0.0-0.2) K/uL Puncture Site pCO2 (35-45) mm/Hg pO2 (80-100) mm/Hg HCO3 (21-28) mmol/L ABG pH (7.35-7.45) ABG Total CO2 (22-28) mmol/L ABG O2 Saturation (95-98) % ABG Base Excess (-2.0-3.0) mmol/L ABG Hemoglobin (11.7-17.4) g/dL ABG Carboxyhemoglobin (0.5-1.5) % POC ABG HHb (Measured) (0.0-5.0) % ABG Methemoglobin (0.0-3.0) % Jann Test ABG Potassium (3.6-5.2) mmol/L A-a O2 Difference mm/Hg Respiratory Index Hgb O2 Saturation (95.0-98.0) % Glucose (65-105) mg/dl Lactate (0.7-2.1) mmol/L Liter Flow Vent Mode Mechanical Rate FiO2 % Tidal Volume PEEP Sodium (132-148) mmol/L Potassium (3.6-5.2) mmol/L Chloride (98-107) mmol/L Carbon Dioxide (22-30) mmol/L Anion Gap (10-20) BUN (7-17) mg/dL Creatinine (0.7-1.2) mg/dL Est GFR ( Amer) Est GFR (Non-Af Amer) POC Glucose (mg/dL) (65-110) mg/dL Random Glucose (65-105) mg/dL Calcium (8.6-10.4) mg/dl Phosphorus (2.5-4.5) mg/dL Magnesium (1.6-2.3) mg/dL Total Bilirubin (0.2-1.3) mg/dL AST (14-36) U/L ALT (9-52) U/L Alkaline Phosphatase (38-126) U/L Total Protein (6.3-8.3) g/dL Albumin (3.5-5.0) g/dL Globulin (2.2-3.9) gm/dL Albumin/Globulin Ratio (1.0-2.1) Arterial Blood Potassium (3.6-5.2) mmol/L C. difficile Ag & Toxin (NEGATIVE) Blood Type O POSITIVE Antibody Screen Negative Laboratory Results - last 24 hr 04/14/18 04/14/18 04/14/18 10:21 17:46 18:14 WBC RBC Hgb Hct MCV MCH MCHC RDW Plt Count MPV Neut % (Auto) Lymph % (Auto) Hudson % (Auto) Eos % (Auto) Baso % (Auto) Neut # (Auto) Lymph # (Auto) Hudson # (Auto) Eos # (Auto) Baso # (Auto) Puncture Site pCO2 pO2 HCO3 ABG pH ABG Total CO2 ABG O2 Saturation ABG Base Excess ABG Hemoglobin ABG Carboxyhemoglobin POC ABG HHb (Measured) ABG Methemoglobin Jann Test ABG Potassium A-a O2 Difference Respiratory Index Hgb O2 Saturation Glucose Lactate Liter Flow Vent Mode Mechanical Rate FiO2 Tidal Volume PEEP Sodium Potassium Chloride Carbon Dioxide Anion Gap BUN Creatinine Est GFR ( Amer) Est GFR (Non-Af Amer) POC Glucose (mg/dL) 85 Random Glucose Calcium Phosphorus Magnesium Total Bilirubin AST ALT Alkaline Phosphatase Total Protein Albumin Globulin Albumin/Globulin Ratio Arterial Blood Potassium C. difficile Ag & Toxin Negative Blood Type O POSITIVE Antibody Screen Negative 04/14/18 04/15/18 04/15/18 23:33 05:10 05:22 WBC RBC Hgb Hct MCV MCH MCHC RDW Plt Count MPV Neut % (Auto) Lymph % (Auto) Hudson % (Auto) Eos % (Auto) Baso % (Auto) Neut # (Auto) Lymph # (Auto) Hudson # (Auto) Eos # (Auto) Baso # (Auto) Puncture Site Rb pCO2 37 pO2 92 HCO3 25.6 ABG pH 7.44 ABG Total CO2 26.2 ABG O2 Saturation 98.6 H ABG Base Excess 0.9 ABG Hemoglobin 7.7 L ABG Carboxyhemoglobin 1.6 H POC ABG HHb (Measured) 1.4 ABG Methemoglobin 1.0 Jann Test Na ABG Potassium A-a O2 Difference 76.0 Respiratory Index 0.8 Hgb O2 Saturation 96.0 Glucose Lactate Liter Flow Vent Mode Prvc Mechanical Rate 18 FiO2 30.0 Tidal Volume 400 PEEP 5 Sodium Potassium Chloride Carbon Dioxide Anion Gap BUN Creatinine Est GFR ( Amer) Est GFR (Non-Af Amer) POC Glucose (mg/dL) 99 106 Random Glucose Calcium Phosphorus Magnesium Total Bilirubin AST ALT Alkaline Phosphatase Total Protein Albumin Globulin Albumin/Globulin Ratio Arterial Blood Potassium C. difficile Ag & Toxin Blood Type Antibody Screen 04/15/18 04/15/18 04/15/18 06:16 06:18 11:46 WBC 3.7 L D RBC 2.57 L Hgb 7.5 L Hct 22.0 L MCV 85.5 MCH 29.2 MCHC 34.2 RDW 15.8 H Plt Count 130 MPV 9.0 Neut % (Auto) 63.9 Lymph % (Auto) 22.5 Hudson % (Auto) 12.0 H Eos % (Auto) 0.4 Baso % (Auto) 1.2 Neut # (Auto) 2.3 Lymph # (Auto) 0.8 L Hudson # (Auto) 0.4 Eos # (Auto) 0.0 Baso # (Auto) 0.0 Puncture Site Rba pCO2 38 pO2 85 HCO3 23.6 ABG pH 7.39 ABG Total CO2 24.2 ABG O2 Saturation 97.9 ABG Base Excess -1.7 ABG Hemoglobin ABG Carboxyhemoglobin POC ABG HHb (Measured) ABG Methemoglobin Jann Test Na ABG Potassium 3.0 L A-a O2 Difference 81.0 Respiratory Index 1.0 Hgb O2 Saturation Glucose 83 Lactate 1.6 Liter Flow 6.0 Vent Mode Mechanical Rate FiO2 30.0 Tidal Volume PEEP Sodium 145 144.0 Potassium 2.8 L Chloride 105 110.0 H Carbon Dioxide 24 Anion Gap 19 BUN 40 H Creatinine 1.3 H Est GFR ( Amer) 52 Est GFR (Non-Af Amer) 43 POC Glucose (mg/dL) Random Glucose 69 Calcium 7.5 L Phosphorus 3.5 Magnesium 2.0 Total Bilirubin 1.0 AST 17 ALT 24 Alkaline Phosphatase 78 Total Protein 4.8 L Albumin 2.5 L Globulin 2.2 Albumin/Globulin Ratio 1.1 Arterial Blood Potassium 3.0 L C. difficile Ag & Toxin Blood Type Antibody Screen 04/15/18 11:51 WBC RBC Hgb Hct MCV MCH MCHC RDW Plt Count MPV Neut % (Auto) Lymph % (Auto) Hudson % (Auto) Eos % (Auto) Baso % (Auto) Neut # (Auto) Lymph # (Auto) Hudson # (Auto) Eos # (Auto) Baso # (Auto) Puncture Site pCO2 pO2 HCO3 ABG pH ABG Total CO2 ABG O2 Saturation ABG Base Excess ABG Hemoglobin ABG Carboxyhemoglobin POC ABG HHb (Measured) ABG Methemoglobin Jann Test ABG Potassium A-a O2 Difference Respiratory Index Hgb O2 Saturation Glucose Lactate Liter Flow Vent Mode Mechanical Rate FiO2 Tidal Volume PEEP Sodium Potassium Chloride Carbon Dioxide Anion Gap BUN Creatinine Est GFR ( Amer) Est GFR (Non-Af Amer) POC Glucose (mg/dL) 97 Random Glucose Calcium Phosphorus Magnesium Total Bilirubin AST ALT Alkaline Phosphatase Total Protein Albumin Globulin Albumin/Globulin Ratio Arterial Blood Potassium C. difficile Ag & Toxin Blood Type Antibody Screen Critical Care Progress Note - Nutrition Nutrition: Nutrition Category Date Time Status NPO Diet [DIET] Diets 04/06/18 Breakfast Active Assessment/Plan - Assessment and Plan (Free Text) Plan: Above patient seen and examined at bedside with above resident who had documented my clinical findings and management. -Shock: combintiaon of sepsis and hypovolemia, transfuse and infuse albumin and titrate off pressors -continue ng tube feeds -listeria abacteremia: continue abx as per ID -derm consult pending Patient's transfer to burn center difficult due to each institution requirement. above managemenr d/w family, nursing and ICu resident - Date & Time Date: 04/14/18 Time: 09:00
[2018-04-14] MEDS ORDERED: Meropenem 500 MG in Sodium Chloride 0.9% 100 ML IVPB SCH (18:00)
--- NOTE | 2018-04-14 21:03 | CP.PCM.CON ---
History of Present Illness - History of Present Illness History of Present Illness: 04/14/2018 9:02 PM Patient evaluated and discussed with Dr. Buckner. Consult note to be dictated. Past Patient History - Tetanus Immunizations Tetanus Immunization: Unknown - Past Medical History & Family History Past Medical History?: Yes - Past Social History Smoking Status: Never Smoked - CARDIAC Hx Cardiac Disorders: (UNKNOWN) - PULMONARY Hx Respiratory Disorders: (UNKNOWN) - NEUROLOGICAL Hx Neurological Disorder: (UNKNOWN) - HEENT Hx HEENT Problems: (UNKNOWN) - RENAL Hx Chronic Kidney Disease: (UNKNOWN) - ENDOCRINE/METABOLIC Hx Endocrine Disorders: (UNKNOWN) - HEMATOLOGICAL/ONCOLOGICAL Hx Blood Disorders: (UNKNOWN) Hx Anemia: Yes (04-01-18) Other/Comment: SEPSIS 04-01-18 - INTEGUMENTARY Other/Comment: BLLE sores. Discoloration to Abd area. Umbilical hernia - MUSCULOSKELETAL/RHEUMATOLOGICAL Hx Musculoskeletal Disorders: (UNKNOWN) Hx Falls: Yes - GASTROINTESTINAL Hx Gastrointestinal Disorders: Yes (NON REDUCIBLE UMBILICAL HERNIA) - GENITOURINARY/GYNECOLOGICAL Hx Genitourinary Disorders: (UNKNOWN) - PSYCHIATRIC Hx Substance Use: No - SURGICAL HISTORY Hx Surgeries: No - ANESTHESIA Hx Anesthesia: No Hx Anesthesia Reactions: No Meds Allergies/Adverse Reactions: Allergies Allergy/AdvReac Type Severity Reaction Status Date / Time No Known Allergies Allergy Verified 04/01/18 17:21 - Medications Medications: Current Medications Acetaminophen (Tylenol 650mg/20.3ml Solution Ud) 650 mg PO Q4 PRN PRN Reason: Fever Last Admin: 04/14/18 00:07 Dose: 650 mg Albumin Human (Albumin Human 25% (12.5 Gm/50 Ml)) 25 gm IV Q6H [facility] Stop: 04/15/18 16:16 Last Admin: 04/14/18 16:42 Dose: 25 gm Albuterol/Ipratropium (Duoneb 3 Mg/0.5 Mg (3 Ml) Ud) 3 ml INH RQ6 PRN PRN Reason: Shortness of Breath Last Admin: 04/14/18 19:50 Dose: 3 ml Ascorbic Acid (Vitamin C 500 Mg Tab) 500 mg PO BID NOLAN Last Admin: 04/14/18 17:07 Dose: 500 mg Calcium Acetate (Phoslo) 1,334 mg PO TIDCC [facility] Last Admin: 04/14/18 17:07 Dose: 1,334 mg Ergocalciferol (Drisdol 50,000 Intl Units Cap) 1 cap PO Q7D [facility] Last Admin: 04/11/18 10:27 Dose: 1 cap Heparin Sodium (Porcine) (Heparin) 5,000 units SC Q12 [facility] Last Admin: 04/14/18 10:50 Dose: 5,000 units Norepinephrine Bitartrate 4 mg (/ Sodium Chloride) 254 mls @ 15.24 mls/hr IV .[id number] PRN; Protocol; 4 MCG/MIN PRN Reason: TITRATE PER MD ORDER Last Titration: 04/14/18 17:40 Dose: 2 mcg/min, 7.62 mls/hr Vasopressin 40 units/ Sodium (Chloride) 42 mls @ 0.63 mls/hr IV .Q24H NOLAN; 0.01 UNITS/MIN PRN Reason: Protocol Last Admin: 04/14/18 03:30 Dose: 0.02 units/min, 1.26 mls/hr Fluconazole (Diflucan Iv 100 Mg/50 Ml Ns) 50 mls @ 100 mls/hr IVPB DAILY NOLAN PRN Reason: Protocol Last Admin: 04/14/18 09:15 Dose: 100 mls/hr Ampicillin 2 gm/ Sodium (Chloride) 100 mls @ 200 mls/hr IVPB Q6H NOLAN PRN Reason: Protocol Last Admin: 04/14/18 17:39 Dose: 200 mls/hr Meropenem 500 mg/ Sodium (Chloride) 100 mls @ 100 mls/hr IVPB Q12H [facility]OLAN PRN Reason: Protocol Lorazepam (Ativan) 1 mg IVP Q3H PRN PRN Reason: Anxiety Multivitamins/Vitamin C (Multi-Delyn Liquid) 5 ml PO DAILY NOLAN Last Admin: 04/14/18 09:13 Dose: 5 ml Nystatin (Nystop Topical Powder) 1 applic TOP BID NOLAN Last Admin: 04/14/18 17:07 Dose: 1 applic Pantoprazole Sodium (Protonix Inj) 40 mg IVP DAILY NOLAN Last Admin: 04/14/18 09:13 Dose: 40 mg Silver Sulfadiazine (Silvadene 1%) 0 ea TOP DAILY NOLAN Last Admin: 04/14/18 15:57 Dose: 1 applic Silver Sulfadiazine (Silvadene 1%) 0 ea TOP Q12 NOLAN Last Admin: 04/14/18 09:22 Dose: 1 applic Vitamin A (Vitamin A & D Oint Ud Foilpak) 1 ea TOP Q8 PRN PRN Reason: Dry Lips Last Admin: 04/12/18 04:14 Dose: 1 ea Results - Vital Signs Recent Vital Signs: Last Vital Signs Temp 99.0 F 04/14/18 20:00 Pulse 96 H 04/14/18 19:24 Resp 23 04/14/18 19:24 BP 101/37 L 04/14/18 19:24 Pulse Ox 100 04/14/18 19:24 - Labs Result Diagrams: 04/14/18 05:53 04/14/18 05:55 Labs: Laboratory Results - last 24 hr 04/13/18 04/14/18 04/14/18 23:25 05:25 05:29 WBC RBC Hgb Hct MCV MCH MCHC RDW Plt Count MPV Neut % (Auto) Lymph % (Auto) Yell % (Auto) Eos % (Auto) Baso % (Auto) Neut # (Auto) Lymph # (Auto) Yell # (Auto) Eos # (Auto) Baso # (Auto) Puncture Site L brac pCO2 43 pO2 186 H HCO3 23.1 ABG pH 7.34 L ABG Total CO2 24.5 ABG O2 Saturation 99.1 H ABG Base Excess -2.4 L ABG Hemoglobin 7.5 L ABG Carboxyhemoglobin 1.5 POC ABG HHb (Measured) 0.9 ABG Methemoglobin 1.2 Jann Test Na A-a O2 Difference 45.0 Respiratory Index 0.2 Hgb O2 Saturation 96.4 Vent Mode Prvc Mechanical Rate 14 FiO2 40.0 Tidal Volume 400 PEEP 5 Sodium Potassium Chloride Carbon Dioxide Anion Gap BUN Creatinine Est GFR ( Amer) Est GFR (Non-Af Amer) POC Glucose (mg/dL) 131 H 105 Random Glucose Calcium Phosphorus Magnesium Total Bilirubin AST ALT Alkaline Phosphatase Total Protein Albumin Globulin Albumin/Globulin Ratio C. difficile Ag & Toxin Blood Type Antibody Screen 04/14/18 04/14/18 04/14/18 05:53 05:55 10:21 WBC 10.9 H RBC 2.76 L Hgb 7.9 L Hct 23.6 L MCV 85.6 MCH 28.6 MCHC 33.5 RDW 16.5 H Plt Count 162 MPV 9.1 Neut % (Auto) 73.3 Lymph % (Auto) 15.6 L Yell % (Auto) 9.6 Eos % (Auto) 0.6 Baso % (Auto) 0.9 Neut # (Auto) 8.0 H Lymph # (Auto) 1.7 Yell # (Auto) 1.0 H Eos # (Auto) 0.1 Baso # (Auto) 0.1 Puncture Site pCO2 pO2 HCO3 ABG pH ABG Total CO2 ABG O2 Saturation ABG Base Excess ABG Hemoglobin ABG Carboxyhemoglobin POC ABG HHb (Measured) ABG Methemoglobin Jann Test A-a O2 Difference Respiratory Index Hgb O2 Saturation Vent Mode Mechanical Rate FiO2 Tidal Volume PEEP Sodium 145 Potassium 3.4 L Chloride 106 Carbon Dioxide 25 Anion Gap 18 BUN 60 H Creatinine 2.4 H Est GFR ( Amer) 26 Est GFR (Non-Af Amer) 21 POC Glucose (mg/dL) Random Glucose 92 Calcium 8.2 L Phosphorus 5.2 H Magnesium 2.3 Total Bilirubin 0.9 AST 20 ALT 25 Alkaline Phosphatase 121 Total Protein 5.1 L Albumin 2.3 L Globulin 2.8 Albumin/Globulin Ratio 0.8 L C. difficile Ag & Toxin Blood Type O POSITIVE Antibody Screen Negative 04/14/18 04/14/18 04/14/18 11:19 17:46 18:14 WBC RBC Hgb Hct MCV MCH MCHC RDW Plt Count MPV Neut % (Auto) Lymph % (Auto) Yell % (Auto) Eos % (Auto) Baso % (Auto) Neut # (Auto) Lymph # (Auto) Yell # (Auto) Eos # (Auto) Baso # (Auto) Puncture Site pCO2 pO2 HCO3 ABG pH ABG Total CO2 ABG O2 Saturation ABG Base Excess ABG Hemoglobin ABG Carboxyhemoglobin POC ABG HHb (Measured) ABG Methemoglobin Jann Test A-a O2 Difference Respiratory Index Hgb O2 Saturation Vent Mode Mechanical Rate FiO2 Tidal Volume PEEP Sodium Potassium Chloride Carbon Dioxide Anion Gap BUN Creatinine Est GFR ( Amer) Est GFR (Non-Af Amer) POC Glucose (mg/dL) 100 85 Random Glucose Calcium Phosphorus Magnesium Total Bilirubin AST ALT Alkaline Phosphatase Total Protein Albumin Globulin Albumin/Globulin Ratio C. difficile Ag & Toxin Negative Blood Type Antibody Screen
--- NOTE | 2018-04-14 21:05 | CP.PCM.PN ---
Subjective - Date & Time of Evaluation Date of Evaluation: 04/03/18 Time of Evaluation: 19:00 - Subjective Subjective: Vented Objective - Vital Signs/Intake and Output Vital Signs (last 24 hours): Temp Pulse Resp BP Pulse Ox 99.0 F 96 H 23 101/37 L 100 04/14/18 20:00 04/14/18 19:24 04/14/18 19:24 04/14/18 19:24 04/14/18 19:24 Intake and Output: 04/14/18 04/15/18 18:59 06:59 Intake Total 2762.5 Output Total 110 Balance 2652.5 - Medications Medications: Current Medications Acetaminophen (Tylenol 650mg/20.3ml Solution Ud) 650 mg PO Q4 PRN PRN Reason: Fever Last Admin: 04/14/18 00:07 Dose: 650 mg Albumin Human (Albumin Human 25% (12.5 Gm/50 Ml)) 25 gm IV Q6H [facility] Stop: 04/15/18 16:16 Last Admin: 04/14/18 16:42 Dose: 25 gm Albuterol/Ipratropium (Duoneb 3 Mg/0.5 Mg (3 Ml) Ud) 3 ml INH RQ6 PRN PRN Reason: Shortness of Breath Last Admin: 04/14/18 19:50 Dose: 3 ml Ascorbic Acid (Vitamin C 500 Mg Tab) 500 mg PO BID [facility] Last Admin: 04/14/18 17:07 Dose: 500 mg Calcium Acetate (Phoslo) 1,334 mg PO TIDCC [facility] Last Admin: 04/14/18 17:07 Dose: 1,334 mg Ergocalciferol (Drisdol 50,000 Intl Units Cap) 1 cap PO Q7D [facility] Last Admin: 04/11/18 10:27 Dose: 1 cap Heparin Sodium (Porcine) (Heparin) 5,000 units SC Q12 [facility] Last Admin: 04/14/18 10:50 Dose: 5,000 units Norepinephrine Bitartrate 4 mg (/ Sodium Chloride) 254 mls @ 15.24 mls/hr IV .[id number] PRN; Protocol; 4 MCG/MIN PRN Reason: TITRATE PER MD ORDER Last Titration: 04/14/18 17:40 Dose: 2 mcg/min, 7.62 mls/hr Vasopressin 40 units/ Sodium (Chloride) 42 mls @ 0.63 mls/hr IV .Q24H NOLAN; 0.01 UNITS/MIN PRN Reason: Protocol Last Admin: 04/14/18 03:30 Dose: 0.02 units/min, 1.26 mls/hr Fluconazole (Diflucan Iv 100 Mg/50 Ml Ns) 50 mls @ 100 mls/hr IVPB DAILY NOLAN PRN Reason: Protocol Last Admin: 04/14/18 09:15 Dose: 100 mls/hr Ampicillin 2 gm/ Sodium (Chloride) 100 mls @ 200 mls/hr IVPB Q6H NOLAN PRN Reason: Protocol Last Admin: 04/14/18 17:39 Dose: 200 mls/hr Meropenem 500 mg/ Sodium (Chloride) 100 mls @ 100 mls/hr IVPB Q12H NOLAN PRN Reason: Protocol Lorazepam (Ativan) 1 mg IVP Q3H PRN PRN Reason: Anxiety Multivitamins/Vitamin C (Multi-Delyn Liquid) 5 ml PO DAILY NOLAN Last Admin: 04/14/18 09:13 Dose: 5 ml Nystatin (Nystop Topical Powder) 1 applic TOP BID NOLAN Last Admin: 04/14/18 17:07 Dose: 1 applic Pantoprazole Sodium (Protonix Inj) 40 mg IVP DAILY NOLAN Last Admin: 04/14/18 09:13 Dose: 40 mg Silver Sulfadiazine (Silvadene 1%) 0 ea TOP DAILY NOLAN Last Admin: 04/14/18 15:57 Dose: 1 applic Silver Sulfadiazine (Silvadene 1%) 0 ea TOP Q12 NOLAN Last Admin: 04/14/18 09:22 Dose: 1 applic Vitamin A (Vitamin A & D Oint Ud Foilpak) 1 ea TOP Q8 PRN PRN Reason: Dry Lips Last Admin: 04/12/18 04:14 Dose: 1 ea - Labs Labs: 04/14/18 05:53 04/14/18 05:55 PT 11.2 SECONDS (9.7-12.2) 04/05/18 06:15 INR 1.0 04/05/18 06:15 APTT 29 SECONDS (21-34) 04/05/18 06:15 - Head Exam Head Exam: ATRAUMATIC - Eye Exam Eye Exam: Normal appearance - ENT Exam ENT Exam: Mucous Membranes Dry - Respiratory Exam Respiratory Exam: NORMAL BREATHING PATTERN - Cardiovascular Exam Cardiovascular Exam: +S1, +S2 - GI/Abdominal Exam GI & Abdominal Exam: Normal Bowel Sounds Assessment and Plan (1) Leukocytosis Assessment & Plan: no blasts on peripheral smear myeloproliferative w/u sent; BCR/ABL and JAK2 may be reactive to infection/inflammation Status: Acute (2) Anemia Assessment & Plan: chronic disease and renal disease transfusion support Status: Acute (3) Thrombocytopenia Assessment & Plan: likely sepsis related trend fibrinogen to rule out evolving DIC will send heparin AB and GODWIN to rule out HIT Status: Acute (4) Coagulopathy Assessment & Plan: nutritional, sepsis rule out evolving DIC Status: Acute
--- NOTE | 2018-04-14 21:07 | CP.PCM.PN ---
Subjective - Date & Time of Evaluation Date of Evaluation: 04/05/18 Time of Evaluation: 12:00 - Subjective Subjective: Vented, awake Objective - Vital Signs/Intake and Output Vital Signs (last 24 hours): Temp Pulse Resp BP Pulse Ox 99.0 F 96 H 23 101/37 L 100 04/14/18 20:00 04/14/18 19:24 04/14/18 19:24 04/14/18 19:24 04/14/18 19:24 Intake and Output: 04/14/18 04/15/18 18:59 06:59 Intake Total 2762.5 Output Total 110 Balance 2652.5 - Medications Medications: Current Medications Acetaminophen (Tylenol 650mg/20.3ml Solution Ud) 650 mg PO Q4 PRN PRN Reason: Fever Last Admin: 04/14/18 00:07 Dose: 650 mg Albumin Human (Albumin Human 25% (12.5 Gm/50 Ml)) 25 gm IV Q6H [facility] Stop: 04/15/18 16:16 Last Admin: 04/14/18 16:42 Dose: 25 gm Albuterol/Ipratropium (Duoneb 3 Mg/0.5 Mg (3 Ml) Ud) 3 ml INH RQ6 PRN PRN Reason: Shortness of Breath Last Admin: 04/14/18 19:50 Dose: 3 ml Ascorbic Acid (Vitamin C 500 Mg Tab) 500 mg PO BID [facility] Last Admin: 04/14/18 17:07 Dose: 500 mg Calcium Acetate (Phoslo) 1,334 mg PO TIDCC [facility] Last Admin: 04/14/18 17:07 Dose: 1,334 mg Ergocalciferol (Drisdol 50,000 Intl Units Cap) 1 cap PO Q7D [facility] Last Admin: 04/11/18 10:27 Dose: 1 cap Heparin Sodium (Porcine) (Heparin) 5,000 units SC Q12 [facility] Last Admin: 04/14/18 10:50 Dose: 5,000 units Norepinephrine Bitartrate 4 mg (/ Sodium Chloride) 254 mls @ 15.24 mls/hr IV .[id number] PRN; Protocol; 4 MCG/MIN PRN Reason: TITRATE PER MD ORDER Last Titration: 04/14/18 17:40 Dose: 2 mcg/min, 7.62 mls/hr Vasopressin 40 units/ Sodium (Chloride) 42 mls @ 0.63 mls/hr IV .Q24H [facility]; 0.01 UNITS/MIN PRN Reason: Protocol Last Admin: 04/14/18 03:30 Dose: 0.02 units/min, 1.26 mls/hr Fluconazole (Diflucan Iv 100 Mg/50 Ml Ns) 50 mls @ 100 mls/hr IVPB DAILY [facility] PRN Reason: Protocol Last Admin: 04/14/18 09:15 Dose: 100 mls/hr Ampicillin 2 gm/ Sodium (Chloride) 100 mls @ 200 mls/hr IVPB Q6H [facility] PRN Reason: Protocol Last Admin: 04/14/18 17:39 Dose: 200 mls/hr Meropenem 500 mg/ Sodium (Chloride) 100 mls @ 100 mls/hr IVPB Q12H [facility] PRN Reason: Protocol Lorazepam (Ativan) 1 mg IVP Q3H PRN PRN Reason: Anxiety Multivitamins/Vitamin C (Multi-Delyn Liquid) 5 ml PO DAILY [facility] Last Admin: 04/14/18 09:13 Dose: 5 ml Nystatin (Nystop Topical Powder) 1 applic TOP BID [facility] Last Admin: 04/14/18 17:07 Dose: 1 applic Pantoprazole Sodium (Protonix Inj) 40 mg IVP DAILY [facility] Last Admin: 04/14/18 09:13 Dose: 40 mg Silver Sulfadiazine (Silvadene 1%) 0 ea TOP DAILY [facility] Last Admin: 04/14/18 15:57 Dose: 1 applic Silver Sulfadiazine (Silvadene 1%) 0 ea TOP Q12 [facility] Last Admin: 04/14/18 09:22 Dose: 1 applic Vitamin A (Vitamin A & D Oint Ud Foilpak) 1 ea TOP Q8 PRN PRN Reason: Dry Lips Last Admin: 04/12/18 04:14 Dose: 1 ea - Labs Labs: 04/14/18 05:53 04/14/18 05:55 PT 11.2 SECONDS (9.7-12.2) 04/05/18 06:15 INR 1.0 04/05/18 06:15 APTT 29 SECONDS (21-34) 04/05/18 06:15 - Head Exam Head Exam: ATRAUMATIC - Eye Exam Eye Exam: Normal appearance - ENT Exam ENT Exam: Mucous Membranes Dry - Respiratory Exam Respiratory Exam: NORMAL BREATHING PATTERN - Cardiovascular Exam Cardiovascular Exam: +S1, +S2 - GI/Abdominal Exam GI & Abdominal Exam: Normal Bowel Sounds Assessment and Plan (1) Leukocytosis Assessment & Plan: no blasts on peripheral smear myeloproliferative w/u sent; BCR/ABL and JAK2 may be reactive to infection/inflammation Status: Acute (2) Anemia Assessment & Plan: chronic disease and renal disease transfusion support Status: Acute (3) Thrombocytopenia Assessment & Plan: likely sepsis related trend fibrinogen to rule out evolving DIC will send heparin AB and GODWIN to rule out HIT Status: Acute (4) Coagulopathy Assessment & Plan: nutritiona, sepsis rule out evolving DIC Status: Acute
--- NOTE | 2018-04-14 21:09 | CP.PCM.PN ---
Subjective - Date & Time of Evaluation Date of Evaluation: 04/07/18 Time of Evaluation: 12:00 - Subjective Subjective: Vented Objective - Vital Signs/Intake and Output Vital Signs (last 24 hours): Temp Pulse Resp BP Pulse Ox 99.0 F 96 H 23 101/37 L 100 04/14/18 20:00 04/14/18 19:24 04/14/18 19:24 04/14/18 19:24 04/14/18 19:24 Intake and Output: 04/14/18 04/15/18 18:59 06:59 Intake Total 2762.5 Output Total 110 Balance 2652.5 - Medications Medications: Current Medications Acetaminophen (Tylenol 650mg/20.3ml Solution Ud) 650 mg PO Q4 PRN PRN Reason: Fever Last Admin: 04/14/18 00:07 Dose: 650 mg Albumin Human (Albumin Human 25% (12.5 Gm/50 Ml)) 25 gm IV Q6H [facility] Stop: 04/15/18 16:16 Last Admin: 04/14/18 16:42 Dose: 25 gm Albuterol/Ipratropium (Duoneb 3 Mg/0.5 Mg (3 Ml) Ud) 3 ml INH RQ6 PRN PRN Reason: Shortness of Breath Last Admin: 04/14/18 19:50 Dose: 3 ml Ascorbic Acid (Vitamin C 500 Mg Tab) 500 mg PO BID [facility] Last Admin: 04/14/18 17:07 Dose: 500 mg Calcium Acetate (Phoslo) 1,334 mg PO TIDCC [facility] Last Admin: 04/14/18 17:07 Dose: 1,334 mg Ergocalciferol (Drisdol 50,000 Intl Units Cap) 1 cap PO Q7D [facility] Last Admin: 04/11/18 10:27 Dose: 1 cap Heparin Sodium (Porcine) (Heparin) 5,000 units SC Q12 [facility] Last Admin: 04/14/18 10:50 Dose: 5,000 units Norepinephrine Bitartrate 4 mg (/ Sodium Chloride) 254 mls @ 15.24 mls/hr IV .[id number] PRN; Protocol; 4 MCG/MIN PRN Reason: TITRATE PER MD ORDER Last Titration: 04/14/18 17:40 Dose: 2 mcg/min, 7.62 mls/hr Vasopressin 40 units/ Sodium (Chloride) 42 mls @ 0.63 mls/hr IV .Q24H [facility]; 0.01 UNITS/MIN PRN Reason: Protocol Last Admin: 04/14/18 03:30 Dose: 0.02 units/min, 1.26 mls/hr Fluconazole (Diflucan Iv 100 Mg/50 Ml Ns) 50 mls @ 100 mls/hr IVPB DAILY [facility] PRN Reason: Protocol Last Admin: 04/14/18 09:15 Dose: 100 mls/hr Ampicillin 2 gm/ Sodium (Chloride) 100 mls @ 200 mls/hr IVPB Q6H [facility] PRN Reason: Protocol Last Admin: 04/14/18 17:39 Dose: 200 mls/hr Meropenem 500 mg/ Sodium (Chloride) 100 mls @ 100 mls/hr IVPB Q12H [facility] PRN Reason: Protocol Lorazepam (Ativan) 1 mg IVP Q3H PRN PRN Reason: Anxiety Multivitamins/Vitamin C (Multi-Delyn Liquid) 5 ml PO DAILY [facility] Last Admin: 04/14/18 09:13 Dose: 5 ml Nystatin (Nystop Topical Powder) 1 applic TOP BID [facility] Last Admin: 04/14/18 17:07 Dose: 1 applic Pantoprazole Sodium (Protonix Inj) 40 mg IVP DAILY [facility] Last Admin: 04/14/18 09:13 Dose: 40 mg Silver Sulfadiazine (Silvadene 1%) 0 ea TOP DAILY [facility] Last Admin: 04/14/18 15:57 Dose: 1 applic Silver Sulfadiazine (Silvadene 1%) 0 ea TOP Q12 [facility] Last Admin: 04/14/18 09:22 Dose: 1 applic Vitamin A (Vitamin A & D Oint Ud Foilpak) 1 ea TOP Q8 PRN PRN Reason: Dry Lips Last Admin: 04/12/18 04:14 Dose: 1 ea - Labs Labs: 04/14/18 05:53 04/14/18 05:55 PT 11.2 SECONDS (9.7-12.2) 04/05/18 06:15 INR 1.0 04/05/18 06:15 APTT 29 SECONDS (21-34) 04/05/18 06:15 - Head Exam Head Exam: ATRAUMATIC - Eye Exam Eye Exam: Normal appearance - ENT Exam ENT Exam: Mucous Membranes Dry - Respiratory Exam Respiratory Exam: NORMAL BREATHING PATTERN - Cardiovascular Exam Cardiovascular Exam: +S1, +S2 - GI/Abdominal Exam GI & Abdominal Exam: Normal Bowel Sounds Assessment and Plan (1) Leukocytosis Assessment & Plan: improving on antibiotics negative evaluation for myeloproliferative disorder likely secondary to infection; improving with antibiotics and wound debridement Status: Acute (2) Anemia Assessment & Plan: chronic disease and renal disease transfusion suppport PRN EPO per renal Status: Acute (3) Thrombocytopenia Assessment & Plan: f/u HIT w/u heparin on hold ?sepsis related Status: Acute (4) Coagulopathy Assessment & Plan: nutritional Status: Acute
--- NOTE | 2018-04-14 21:11 | CP.PCM.PN ---
Subjective - Date & Time of Evaluation Date of Evaluation: 04/10/18 Time of Evaluation: 19:00 - Subjective Subjective: Appears comfortable Objective - Vital Signs/Intake and Output Vital Signs (last 24 hours): Temp Pulse Resp BP Pulse Ox 99.0 F 96 H 23 101/37 L 100 04/14/18 20:00 04/14/18 19:24 04/14/18 19:24 04/14/18 19:24 04/14/18 19:24 Intake and Output: 04/14/18 04/15/18 18:59 06:59 Intake Total 2762.5 Output Total 110 Balance 2652.5 - Medications Medications: Current Medications Acetaminophen (Tylenol 650mg/20.3ml Solution Ud) 650 mg PO Q4 PRN PRN Reason: Fever Last Admin: 04/14/18 00:07 Dose: 650 mg Albumin Human (Albumin Human 25% (12.5 Gm/50 Ml)) 25 gm IV Q6H [facility] Stop: 04/15/18 16:16 Last Admin: 04/14/18 16:42 Dose: 25 gm Albuterol/Ipratropium (Duoneb 3 Mg/0.5 Mg (3 Ml) Ud) 3 ml INH RQ6 PRN PRN Reason: Shortness of Breath Last Admin: 04/14/18 19:50 Dose: 3 ml Ascorbic Acid (Vitamin C 500 Mg Tab) 500 mg PO BID [facility] Last Admin: 04/14/18 17:07 Dose: 500 mg Calcium Acetate (Phoslo) 1,334 mg PO TIDCC [facility] Last Admin: 04/14/18 17:07 Dose: 1,334 mg Ergocalciferol (Drisdol 50,000 Intl Units Cap) 1 cap PO Q7D [facility] Last Admin: 04/11/18 10:27 Dose: 1 cap Heparin Sodium (Porcine) (Heparin) 5,000 units SC Q12 [facility] Last Admin: 04/14/18 10:50 Dose: 5,000 units Norepinephrine Bitartrate 4 mg (/ Sodium Chloride) 254 mls @ 15.24 mls/hr IV .[id number] PRN; Protocol; 4 MCG/MIN PRN Reason: TITRATE PER MD ORDER Last Titration: 04/14/18 17:40 Dose: 2 mcg/min, 7.62 mls/hr Vasopressin 40 units/ Sodium (Chloride) 42 mls @ 0.63 mls/hr IV .Q24H [facility]; 0.01 UNITS/MIN PRN Reason: Protocol Last Admin: 04/14/18 03:30 Dose: 0.02 units/min, 1.26 mls/hr Fluconazole (Diflucan Iv 100 Mg/50 Ml Ns) 50 mls @ 100 mls/hr IVPB DAILY [facility] PRN Reason: Protocol Last Admin: 04/14/18 09:15 Dose: 100 mls/hr Ampicillin 2 gm/ Sodium (Chloride) 100 mls @ 200 mls/hr IVPB Q6H [facility] PRN Reason: Protocol Last Admin: 04/14/18 17:39 Dose: 200 mls/hr Meropenem 500 mg/ Sodium (Chloride) 100 mls @ 100 mls/hr IVPB Q12H [facility] PRN Reason: Protocol Lorazepam (Ativan) 1 mg IVP Q3H PRN PRN Reason: Anxiety Multivitamins/Vitamin C (Multi-Delyn Liquid) 5 ml PO DAILY [facility] Last Admin: 04/14/18 09:13 Dose: 5 ml Nystatin (Nystop Topical Powder) 1 applic TOP BID [facility] Last Admin: 04/14/18 17:07 Dose: 1 applic Pantoprazole Sodium (Protonix Inj) 40 mg IVP DAILY [facility] Last Admin: 04/14/18 09:13 Dose: 40 mg Silver Sulfadiazine (Silvadene 1%) 0 ea TOP DAILY [facility] Last Admin: 04/14/18 15:57 Dose: 1 applic Silver Sulfadiazine (Silvadene 1%) 0 ea TOP Q12 [facility] Last Admin: 04/14/18 09:22 Dose: 1 applic Vitamin A (Vitamin A & D Oint Ud Foilpak) 1 ea TOP Q8 PRN PRN Reason: Dry Lips Last Admin: 04/12/18 04:14 Dose: 1 ea - Labs Labs: 04/14/18 05:53 04/14/18 05:55 PT 11.2 SECONDS (9.7-12.2) 04/05/18 06:15 INR 1.0 04/05/18 06:15 APTT 29 SECONDS (21-34) 04/05/18 06:15 - Head Exam Head Exam: ATRAUMATIC - Eye Exam Eye Exam: Normal appearance - ENT Exam ENT Exam: Mucous Membranes Dry - Respiratory Exam Respiratory Exam: NORMAL BREATHING PATTERN - Cardiovascular Exam Cardiovascular Exam: +S1, +S2 - GI/Abdominal Exam GI & Abdominal Exam: Normal Bowel Sounds Assessment and Plan (1) Leukocytosis Assessment & Plan: improving on antibiotics negative evaluation for myeloproliferative disorder likely secondary to infection; improving with antibiotics and wound debridement Status: Acute (2) Anemia Assessment & Plan: chronic disease and renal disease transfusion suppport PRN EPO per renal Status: Acute (3) Thrombocytopenia Assessment & Plan: ?sepsis related heparin Ab negative; not HIT okay to use heparin Status: Acute (4) Coagulopathy Assessment & Plan: nutritional Status: Acute
--- NOTE | 2018-04-14 21:13 | CP.PCM.PN ---
Subjective - Date & Time of Evaluation Date of Evaluation: 04/12/18 Time of Evaluation: 16:00 - Subjective Subjective: Awake, appears comfortable Objective - Vital Signs/Intake and Output Vital Signs (last 24 hours): Temp Pulse Resp BP Pulse Ox 99.0 F 96 H 23 101/37 L 100 04/14/18 20:00 04/14/18 19:24 04/14/18 19:24 04/14/18 19:24 04/14/18 19:24 Intake and Output: 04/14/18 04/15/18 18:59 06:59 Intake Total 2762.5 Output Total 110 Balance 2652.5 - Medications Medications: Current Medications Acetaminophen (Tylenol 650mg/20.3ml Solution Ud) 650 mg PO Q4 PRN PRN Reason: Fever Last Admin: 04/14/18 00:07 Dose: 650 mg Albumin Human (Albumin Human 25% (12.5 Gm/50 Ml)) 25 gm IV Q6H [facility] Stop: 04/15/18 16:16 Last Admin: 04/14/18 16:42 Dose: 25 gm Albuterol/Ipratropium (Duoneb 3 Mg/0.5 Mg (3 Ml) Ud) 3 ml INH RQ6 PRN PRN Reason: Shortness of Breath Last Admin: 04/14/18 19:50 Dose: 3 ml Ascorbic Acid (Vitamin C 500 Mg Tab) 500 mg PO BID [facility] Last Admin: 04/14/18 17:07 Dose: 500 mg Calcium Acetate (Phoslo) 1,334 mg PO TIDCC [facility] Last Admin: 04/14/18 17:07 Dose: 1,334 mg Ergocalciferol (Drisdol 50,000 Intl Units Cap) 1 cap PO Q7D [facility] Last Admin: 04/11/18 10:27 Dose: 1 cap Heparin Sodium (Porcine) (Heparin) 5,000 units SC Q12 [facility] Last Admin: 04/14/18 10:50 Dose: 5,000 units Norepinephrine Bitartrate 4 mg (/ Sodium Chloride) 254 mls @ 15.24 mls/hr IV .[id number] PRN; Protocol; 4 MCG/MIN PRN Reason: TITRATE PER MD ORDER Last Titration: 04/14/18 17:40 Dose: 2 mcg/min, 7.62 mls/hr Vasopressin 40 units/ Sodium (Chloride) 42 mls @ 0.63 mls/hr IV .Q24H [facility]; 0.01 UNITS/MIN PRN Reason: Protocol Last Admin: 04/14/18 03:30 Dose: 0.02 units/min, 1.26 mls/hr Fluconazole (Diflucan Iv 100 Mg/50 Ml Ns) 50 mls @ 100 mls/hr IVPB DAILY [facility] PRN Reason: Protocol Last Admin: 04/14/18 09:15 Dose: 100 mls/hr Ampicillin 2 gm/ Sodium (Chloride) 100 mls @ 200 mls/hr IVPB Q6H [facility] PRN Reason: Protocol Last Admin: 04/14/18 17:39 Dose: 200 mls/hr Meropenem 500 mg/ Sodium (Chloride) 100 mls @ 100 mls/hr IVPB Q12H [facility] PRN Reason: Protocol Lorazepam (Ativan) 1 mg IVP Q3H PRN PRN Reason: Anxiety Multivitamins/Vitamin C (Multi-Delyn Liquid) 5 ml PO DAILY [facility] Last Admin: 04/14/18 09:13 Dose: 5 ml Nystatin (Nystop Topical Powder) 1 applic TOP BID [facility] Last Admin: 04/14/18 17:07 Dose: 1 applic Pantoprazole Sodium (Protonix Inj) 40 mg IVP DAILY [facility] Last Admin: 04/14/18 09:13 Dose: 40 mg Silver Sulfadiazine (Silvadene 1%) 0 ea TOP DAILY [facility] Last Admin: 04/14/18 15:57 Dose: 1 applic Silver Sulfadiazine (Silvadene 1%) 0 ea TOP Q12 [facility] Last Admin: 04/14/18 09:22 Dose: 1 applic Vitamin A (Vitamin A & D Oint Ud Foilpak) 1 ea TOP Q8 PRN PRN Reason: Dry Lips Last Admin: 04/12/18 04:14 Dose: 1 ea - Labs Labs: 04/14/18 05:53 04/14/18 05:55 PT 11.2 SECONDS (9.7-12.2) 04/05/18 06:15 INR 1.0 04/05/18 06:15 APTT 29 SECONDS (21-34) 04/05/18 06:15 - Head Exam Head Exam: ATRAUMATIC - Eye Exam Eye Exam: Normal appearance - ENT Exam ENT Exam: Mucous Membranes Dry - Respiratory Exam Respiratory Exam: NORMAL BREATHING PATTERN - Cardiovascular Exam Cardiovascular Exam: +S1, +S2 - GI/Abdominal Exam GI & Abdominal Exam: Normal Bowel Sounds Assessment and Plan (1) Leukocytosis Assessment & Plan: improving on antibiotics BCR/ABL negative, JAK2 negative likely secondary to infection; improving with antibiotics and wound debridement Status: Acute (2) Anemia Assessment & Plan: chronic disease and renal disease transfusion suppport PRN EPO per renal Status: Acute (3) Thrombocytopenia Assessment & Plan: ?sepsis related heparin Ab negative; not HIT okay to use heparin Status: Acute (4) Coagulopathy Assessment & Plan: nutritional Status: Acute
--- NOTE | 2018-04-14 21:19 | CP.PCM.PN ---
Subjective - Date & Time of Evaluation Date of Evaluation: 04/13/18 Time of Evaluation: 13:00 - Subjective Subjective: Appears fatigued. Objective - Vital Signs/Intake and Output Vital Signs (last 24 hours): Temp Pulse Resp BP Pulse Ox 99.0 F 96 H 23 101/37 L 100 04/14/18 20:00 04/14/18 19:24 04/14/18 19:24 04/14/18 19:24 04/14/18 19:24 Intake and Output: 04/14/18 04/15/18 18:59 06:59 Intake Total 2762.5 Output Total 110 Balance 2652.5 - Medications Medications: Current Medications Acetaminophen (Tylenol 650mg/20.3ml Solution Ud) 650 mg PO Q4 PRN PRN Reason: Fever Last Admin: 04/14/18 00:07 Dose: 650 mg Albumin Human (Albumin Human 25% (12.5 Gm/50 Ml)) 25 gm IV Q6H [facility] Stop: 04/15/18 16:16 Last Admin: 04/14/18 16:42 Dose: 25 gm Albuterol/Ipratropium (Duoneb 3 Mg/0.5 Mg (3 Ml) Ud) 3 ml INH RQ6 PRN PRN Reason: Shortness of Breath Last Admin: 04/14/18 19:50 Dose: 3 ml Ascorbic Acid (Vitamin C 500 Mg Tab) 500 mg PO BID [facility] Last Admin: 04/14/18 17:07 Dose: 500 mg Calcium Acetate (Phoslo) 1,334 mg PO TIDCC [facility] Last Admin: 04/14/18 17:07 Dose: 1,334 mg Ergocalciferol (Drisdol 50,000 Intl Units Cap) 1 cap PO Q7D [facility] Last Admin: 04/11/18 10:27 Dose: 1 cap Heparin Sodium (Porcine) (Heparin) 5,000 units SC Q12 [facility] Last Admin: 04/14/18 21:10 Dose: 5,000 units Norepinephrine Bitartrate 4 mg (/ Sodium Chloride) 254 mls @ 15.24 mls/hr IV .[id number] PRN; Protocol; 4 MCG/MIN PRN Reason: TITRATE PER MD ORDER Last Titration: 04/14/18 17:40 Dose: 2 mcg/min, 7.62 mls/hr Vasopressin 40 units/ Sodium (Chloride) 42 mls @ 0.63 mls/hr IV .Q24H [facility]; 0.01 UNITS/MIN PRN Reason: Protocol Last Admin: 04/14/18 03:30 Dose: 0.02 units/min, 1.26 mls/hr Fluconazole (Diflucan Iv 100 Mg/50 Ml Ns) 50 mls @ 100 mls/hr IVPB DAILY [facility] PRN Reason: Protocol Last Admin: 04/14/18 09:15 Dose: 100 mls/hr Ampicillin 2 gm/ Sodium (Chloride) 100 mls @ 200 mls/hr IVPB Q6H [facility] PRN Reason: Protocol Last Admin: 04/14/18 17:39 Dose: 200 mls/hr Meropenem 500 mg/ Sodium (Chloride) 100 mls @ 100 mls/hr IVPB Q12H [facility] PRN Reason: Protocol Lorazepam (Ativan) 1 mg IVP Q3H PRN PRN Reason: Anxiety Multivitamins/Vitamin C (Multi-Delyn Liquid) 5 ml PO DAILY [facility] Last Admin: 04/14/18 09:13 Dose: 5 ml Nystatin (Nystop Topical Powder) 1 applic TOP BID [facility] Last Admin: 04/14/18 17:07 Dose: 1 applic Pantoprazole Sodium (Protonix Inj) 40 mg IVP DAILY [facility] Last Admin: 04/14/18 09:13 Dose: 40 mg Silver Sulfadiazine (Silvadene 1%) 0 ea TOP DAILY [facility] Last Admin: 04/14/18 15:57 Dose: 1 applic Silver Sulfadiazine (Silvadene 1%) 0 ea TOP Q12 [facility] Last Admin: 04/14/18 21:11 Dose: 1 applic Vitamin A (Vitamin A & D Oint Ud Foilpak) 1 ea TOP Q8 PRN PRN Reason: Dry Lips Last Admin: 04/12/18 04:14 Dose: 1 ea - Labs Labs: 04/14/18 05:53 04/14/18 05:55 PT 11.2 SECONDS (9.7-12.2) 04/05/18 06:15 INR 1.0 04/05/18 06:15 APTT 29 SECONDS (21-34) 04/05/18 06:15 - Head Exam Head Exam: ATRAUMATIC - Eye Exam Eye Exam: Normal appearance - ENT Exam ENT Exam: Mucous Membranes Dry - Respiratory Exam Respiratory Exam: NORMAL BREATHING PATTERN - Cardiovascular Exam Cardiovascular Exam: +S1, +S2 - GI/Abdominal Exam GI & Abdominal Exam: Normal Bowel Sounds Assessment and Plan (1) Leukocytosis Assessment & Plan: improving on antibiotics BCR/ABL negative, JAK2 negative likely secondary to infection; improving with antibiotics and wound debridement Status: Acute (2) Anemia Assessment & Plan: chronic disease and renal disease transfusion suppport PRN EPO per renal Status: Acute (3) Coagulopathy Assessment & Plan: nutritional Status: Acute
--- NOTE | 2018-04-14 21:21 | CP.PCM.PN ---
Subjective - Date & Time of Evaluation Date of Evaluation: 04/14/18 Time of Evaluation: 18:00 - Subjective Subjective: Appears fatigued Objective - Vital Signs/Intake and Output Vital Signs (last 24 hours): Temp Pulse Resp BP Pulse Ox 99.0 F 96 H 23 101/37 L 100 04/14/18 20:00 04/14/18 19:24 04/14/18 19:24 04/14/18 19:24 04/14/18 19:24 Intake and Output: 04/14/18 04/15/18 18:59 06:59 Intake Total 2762.5 Output Total 110 Balance 2652.5 - Medications Medications: Current Medications Acetaminophen (Tylenol 650mg/20.3ml Solution Ud) 650 mg PO Q4 PRN PRN Reason: Fever Last Admin: 04/14/18 00:07 Dose: 650 mg Albumin Human (Albumin Human 25% (12.5 Gm/50 Ml)) 25 gm IV Q6H [facility] Stop: 04/15/18 16:16 Last Admin: 04/14/18 21:14 Dose: 25 gm Albuterol/Ipratropium (Duoneb 3 Mg/0.5 Mg (3 Ml) Ud) 3 ml INH RQ6 PRN PRN Reason: Shortness of Breath Last Admin: 04/14/18 19:50 Dose: 3 ml Ascorbic Acid (Vitamin C 500 Mg Tab) 500 mg PO BID [facility] Last Admin: 04/14/18 17:07 Dose: 500 mg Calcium Acetate (Phoslo) 1,334 mg PO TIDCC [facility] Last Admin: 04/14/18 17:07 Dose: 1,334 mg Ergocalciferol (Drisdol 50,000 Intl Units Cap) 1 cap PO Q7D [facility] Last Admin: 04/11/18 10:27 Dose: 1 cap Heparin Sodium (Porcine) (Heparin) 5,000 units SC Q12 [facility] Last Admin: 04/14/18 21:10 Dose: 5,000 units Norepinephrine Bitartrate 4 mg (/ Sodium Chloride) 254 mls @ 15.24 mls/hr IV .[id number] PRN; Protocol; 4 MCG/MIN PRN Reason: TITRATE PER MD ORDER Last Titration: 04/14/18 17:40 Dose: 2 mcg/min, 7.62 mls/hr Vasopressin 40 units/ Sodium (Chloride) 42 mls @ 0.63 mls/hr IV .Q24H [facility]; 0.01 UNITS/MIN PRN Reason: Protocol Last Admin: 04/14/18 03:30 Dose: 0.02 units/min, 1.26 mls/hr Fluconazole (Diflucan Iv 100 Mg/50 Ml Ns) 50 mls @ 100 mls/hr IVPB DAILY [facility] PRN Reason: Protocol Last Admin: 04/14/18 09:15 Dose: 100 mls/hr Ampicillin 2 gm/ Sodium (Chloride) 100 mls @ 200 mls/hr IVPB Q6H [facility] PRN Reason: Protocol Last Admin: 04/14/18 17:39 Dose: 200 mls/hr Meropenem 500 mg/ Sodium (Chloride) 100 mls @ 100 mls/hr IVPB Q12H [facility] PRN Reason: Protocol Lorazepam (Ativan) 1 mg IVP Q3H PRN PRN Reason: Anxiety Multivitamins/Vitamin C (Multi-Delyn Liquid) 5 ml PO DAILY [facility] Last Admin: 04/14/18 09:13 Dose: 5 ml Nystatin (Nystop Topical Powder) 1 applic TOP BID [facility] Last Admin: 04/14/18 17:07 Dose: 1 applic Pantoprazole Sodium (Protonix Inj) 40 mg IVP DAILY [facility] Last Admin: 04/14/18 09:13 Dose: 40 mg Silver Sulfadiazine (Silvadene 1%) 0 ea TOP DAILY [facility] Last Admin: 04/14/18 15:57 Dose: 1 applic Silver Sulfadiazine (Silvadene 1%) 0 ea TOP Q12 [facility] Last Admin: 04/14/18 21:11 Dose: 1 applic Vitamin A (Vitamin A & D Oint Ud Foilpak) 1 ea TOP Q8 PRN PRN Reason: Dry Lips Last Admin: 04/12/18 04:14 Dose: 1 ea - Labs Labs: 04/14/18 05:53 04/14/18 05:55 PT 11.2 SECONDS (9.7-12.2) 04/05/18 06:15 INR 1.0 04/05/18 06:15 APTT 29 SECONDS (21-34) 04/05/18 06:15 - Head Exam Head Exam: ATRAUMATIC - Eye Exam Eye Exam: Normal appearance - ENT Exam ENT Exam: Mucous Membranes Dry - Respiratory Exam Respiratory Exam: NORMAL BREATHING PATTERN - Cardiovascular Exam Cardiovascular Exam: +S1, +S2 - GI/Abdominal Exam GI & Abdominal Exam: Normal Bowel Sounds Assessment and Plan (1) Anemia Assessment & Plan: chronic disease and renal disease transfusion suppport PRN EPO per renal Status: Acute (2) Coagulopathy Assessment & Plan: nutritional Status: Acute
[2018-04-15] MEDS: Meropenem 500 MG in Sodium Chloride 0.9% 100 ML IVPB SCH ×2 (01:00→14:35)
[2018-04-15] MEDS: Acetaminophen 650mg/20.3ml solution UD PO PRN (02:10)
[2018-04-15] MEDS: Albumin Human 25% (12.5 gm/50 ml) IV SCH ×3 (03:15→16:34)
--- NOTE | 2018-04-15 04:35 | CP.PCM.PN ---
Subjective - Date & Time of Evaluation Date of Evaluation: 04/14/18 Time of Evaluation: 19:00 - Subjective Subjective: Pt seen and examined at bedside, apperas weak and lethargic Objective - Vital Signs/Intake and Output Vital Signs (last 24 hours): Temp Pulse Resp BP Pulse Ox 99.5 F 90 21 89/37 L 99 04/15/18 00:00 04/15/18 03:31 04/15/18 03:31 04/15/18 03:32 04/15/18 03:31 Intake and Output: 04/14/18 04/15/18 18:59 06:59 Intake Total 2762.5 1075.8 Output Total 110 Balance 2652.5 1075.8 - Medications Medications: Current Medications Acetaminophen (Tylenol 650mg/20.3ml Solution Ud) 650 mg PO Q4 PRN PRN Reason: Fever Last Admin: 04/15/18 02:10 Dose: 650 mg Albumin Human (Albumin Human 25% (12.5 Gm/50 Ml)) 25 gm IV Q6H [facility] Stop: 04/15/18 16:16 Last Admin: 04/15/18 03:15 Dose: 25 gm Albuterol/Ipratropium (Duoneb 3 Mg/0.5 Mg (3 Ml) Ud) 3 ml INH RQ6 PRN PRN Reason: Shortness of Breath Last Admin: 04/14/18 19:50 Dose: 3 ml Ascorbic Acid (Vitamin C 500 Mg Tab) 500 mg PO BID [facility] Last Admin: 04/14/18 17:07 Dose: 500 mg Calcium Acetate (Phoslo) 1,334 mg PO TIDCC [facility] Last Admin: 04/14/18 17:07 Dose: 1,334 mg Ergocalciferol (Drisdol 50,000 Intl Units Cap) 1 cap PO Q7D [facility] Last Admin: 04/11/18 10:27 Dose: 1 cap Heparin Sodium (Porcine) (Heparin) 5,000 units SC Q12 [facility] Last Admin: 04/14/18 21:10 Dose: 5,000 units Norepinephrine Bitartrate 4 mg (/ Sodium Chloride) 254 mls @ 15.24 mls/hr IV .[id number] PRN; Protocol; 4 MCG/MIN PRN Reason: TITRATE PER MD ORDER Last Titration: 04/14/18 22:00 Dose: 0 mcg/min, 0 mls/hr Vasopressin 40 units/ Sodium (Chloride) 42 mls @ 0.63 mls/hr IV .Q24H NOLAN; 0.01 UNITS/MIN PRN Reason: Protocol Last Admin: 04/14/18 03:30 Dose: 0.02 units/min, 1.26 mls/hr Fluconazole (Diflucan Iv 100 Mg/50 Ml Ns) 50 mls @ 100 mls/hr IVPB DAILY NOLAN PRN Reason: Protocol Last Admin: 04/14/18 09:15 Dose: 100 mls/hr Ampicillin 2 gm/ Sodium (Chloride) 100 mls @ 200 mls/hr IVPB Q6H [facility] PRN Reason: Protocol Last Admin: 04/15/18 00:00 Dose: 200 mls/hr Meropenem 500 mg/ Sodium (Chloride) 100 mls @ 100 mls/hr IVPB Q12H [facility] PRN Reason: Protocol Last Admin: 04/15/18 01:00 Dose: 100 mls/hr Lorazepam (Ativan) 1 mg IVP Q3H PRN PRN Reason: Anxiety Multivitamins/Vitamin C (Multi-Delyn Liquid) 5 ml PO DAILY [facility] Last Admin: 04/14/18 09:13 Dose: 5 ml Nystatin (Nystop Topical Powder) 1 applic TOP BID [facility] Last Admin: 04/14/18 17:07 Dose: 1 applic Pantoprazole Sodium (Protonix Inj) 40 mg IVP DAILY [facility] Last Admin: 04/14/18 09:13 Dose: 40 mg Silver Sulfadiazine (Silvadene 1%) 0 ea TOP DAILY [facility] Last Admin: 04/14/18 15:57 Dose: 1 applic Silver Sulfadiazine (Silvadene 1%) 0 ea TOP Q12 [facility] Last Admin: 04/14/18 21:11 Dose: 1 applic Vitamin A (Vitamin A & D Oint Ud Foilpak) 1 ea TOP Q8 PRN PRN Reason: Dry Lips Last Admin: 04/12/18 04:14 Dose: 1 ea - Labs Labs: 04/14/18 05:53 04/14/18 05:55 PT 11.2 SECONDS (9.7-12.2) 04/05/18 06:15 INR 1.0 04/05/18 06:15 APTT 29 SECONDS (21-34) 04/05/18 06:15 - Constitutional Appears: No Acute Distress - Head Exam Head Exam: ATRAUMATIC, NORMAL INSPECTION, NORMOCEPHALIC - Eye Exam Eye Exam: EOMI, Normal appearance, PERRL Pupil Exam: NORMAL ACCOMODATION, PERRL - Respiratory Exam Respiratory Exam: Decreased Breath Sounds - Cardiovascular Exam Cardiovascular Exam: REGULAR RHYTHM, +S1, +S2. absent: Murmur - Rectal Exam Rectal Exam: Deferred Assessment and Plan (1) Acute respiratory failure Status: Acute (2) Acute tubular necrosis Status: Acute (3) Listeria septicemia Status: Acute (4) Leukocytosis Status: Acute
[2018-04-15] MEDS: AMPicillin 2 GM in Sodium Chloride 100 ML IVPB SCH ×4 (04:59→17:32)
[2018-04-15 05:44] LABS: ARTERIAL BLOOD GAS HCO3 25.6 mmol/L (21-28); ARTERIAL BLOOD GAS HEMOGLOBIN 7.7 g/dL (11.7-17.4); ARTERIAL BLOOD GAS O2 SAT 98.6 % (95-98); ARTERIAL BLOOD GAS PCO2 37 mm/Hg (35-45); ARTERIAL BLOOD GAS PH 7.44 (7.35-7.45); ARTERIAL BLOOD GAS PO2 92 mm/Hg (80-100); ARTERIAL BLOOD GAS TCO2 26.2 mmol/L (22-28)
[2018-04-15 06:33] LABS: BASO % 1.2 % (0.0-2.0); EOS % 0.4 % (0.0-4.0); HEMOGLOBIN 7.5 g/dL (11.0-16.0); LYMPH # 0.8 K/uL (1.0-4.3); LYMPH % 22.5 % (20.0-40.0); MEAN CELL VOLUME 85.5 fL (81.0-99.0); MEAN CORPUSCULAR HEMOGLOBIN 29.2 pg (27.0-31.0); MEAN CORPUSCULAR HGB CONC 34.2 g/dL (33.0-37.0); MONO # 0.4 K/uL (0.0-0.8); NEUT # 2.3 K/uL (1.8-7.0); NEUT % 63.9 % (50.0-75.0); RBC 2.57 Mil/uL (3.80-5.20); RED CELL DISTRIBUTION WIDTH 15.8 % (11.5-14.5); WHITE BLOOD COUNT 3.7 K/uL (4.8-10.8)
[2018-04-15 06:43] LABS: ALB/GLOB RATIO 1.1 (1.0-2.1); ALBUMIN 2.5 g/dL (3.5-5.0); CALCIUM 7.5 mg/dl (8.6-10.4)
[2018-04-15] MEDS: Albuterol-Ipratrop 3 mg / 0.5 (3 ml) UD INH SCH ×3 (08:05→19:36)
--- NOTE | 2018-04-15 09:51 | RAD ---
PROCEDURE: CHEST RADIOGRAPH, 1 VIEW HISTORY: Intubated/ICU Routine COMPARISON: Portable chest 04/14/2018. FINDINGS: LUNGS: Endotracheal and nasogastric tubes are unchanged in position as well as right central venous dialysis catheter and left central venous catheter. Linear atelectasis or fibrosis remains at the left base with patchy density at the left hilar region diminished and unchanged at the right. Mild right hemidiaphragm elevation persists. PLEURA: No pneumothorax or pleural effusion bilaterally. CARDIOVASCULAR: Normal. OSSEOUS STRUCTURES: No significant abnormalities. VISUALIZED UPPER ABDOMEN: Normal. OTHER FINDINGS: None. IMPRESSION: Interval improvement in left perihilar infiltrate with no interval change in right hilar infiltrate. Limited linear atelectasis or fibrosis remains at the left base. Tubes and catheters stable in position.
[2018-04-15] MEDS: Silver Sulfadiazine 1% Cream (400 gm) TOP SCH ×3 (10:05→21:34)
[2018-04-15] MEDS: Fluconazole IV 100mg/50 ml NS 50 ML IVPB SCH (10:06)
[2018-04-15] MEDS: Multiple Vitamins Oral Solution PO SCH (10:06)
--- NOTE | 2018-04-15 11:34 | CP.CCUPN ---
CCU Subjective - Physician Review Subjective (Free Text): Patient seen and examined at bedside. Patient tolerating CPAP on very low dose pressors. Critical Care Time Spent (in minutes): 40 CCU Objective - Vital Signs / Intake & Output Vital Signs (Last 4 hours): Vital Signs Temp Pulse Resp BP Pulse Ox 04/15/18 10:10 93 H 25 H 133/39 L 95 04/15/18 10:00 98.8 F 96 H 27 H 133/39 L 98 04/15/18 09:55 94 H 27 H 113/52 L 100 04/15/18 09:54 94 H 22 116/62 98 04/15/18 09:40 98.3 F 92 H 26 H 113/52 L 04/15/18 09:25 98.8 F 94 H 20 92/51 L 04/15/18 09:24 95 H 20 92/51 L 100 04/15/18 09:21 92 H 20 94/59 L 100 04/15/18 09:00 96 H 21 100 04/15/18 08:24 90 21 94/59 L 100 04/15/18 08:00 88 23 100 04/15/18 07:49 98.4 F 100 Intake and Output (Last 8hrs): Intake & Output 04/14/18 04/15/18 04/15/18 22:59 06:59 14:59 Intake Total 1284.7 689.6 80 Output Total 110 Balance 1174.7 689.6 80 Weight 98 lb 8 oz Intake: IV 120 Intake, IV Amount 514.7 409.6 Left Distal Port Internal 400 400 Jugular Left Medial Port Internal 9.6 9.6 Jugular Left Proximal Port 105.1 0 Internal Jugular Tube Feeding 250 280 Blood Product 80 Red Blood Cells Cpd As1 80 Lr Unit [id number] Red Blood Cells Cpd As1 0 Lr Unit [id number] Other 400 Output: Urine 110 Urethral ([place]) 110 Other: # Bowel Movements 1 3 - Physical Exam Head: Positive for: Atraumatic Mouth: Positive for: Moist Mucous Membranes Respiratory/Chest: Positive for: Good Air Exchange. Negative for: Respiratory Distress, Accessory Muscle Use Cardiovascular: Positive for: Normal S1, S2, Gallop Abdomen: Positive for: Distention, Other (abdomen reveals a 5 cm circular bulb no Bowel sounds in bulb). Negative for: Tenderness, Rebound, Guarding Upper Extremity: Positive for: Edema. Negative for: Cyanosis Lower Extremity: Positive for: Edema, Other (non-blanching ecchymotic lesions covering more than 25 percent of lower extremity and abdomen. S/P debridement with Dressing b/L. ) Neurological: Negative for: GCS=15 (11T) Psychiatric: Positive for: Alert, Oriented x 3 - Medications Active Medications: Active Medications Generic Name Dose Route Start Last Admin Trade Name Freq PRN Reason Stop Dose Admin Acetaminophen 650 mg 04/13/18 07:37 04/15/18 02:10 Tylenol 650mg/20.3ml Solution Ud PO 650 mg Q4 PRN Administration Fever Albumin Human 25 gm 04/14/18 10:15 04/15/18 10:03 Albumin Human 25% (12.5 Gm/50 Ml) IV 04/15/18 16:16 25 gm Q6H NOLAN Administration Albuterol/Ipratropium 3 ml 04/15/18 08:00 04/15/18 08:05 Duoneb 3 Mg/0.5 Mg (3 Ml) Ud INH 3 ml RQ6 NOLAN Administration Ascorbic Acid 500 mg 04/02/18 10:00 04/15/18 10:03 Vitamin C 500 Mg Tab PO 500 mg BID NOLAN Administration Ergocalciferol 1 cap 04/04/18 10:45 04/11/18 10:27 Drisdol 50,000 Intl Units Cap PO 1 cap Q7D [facility]AN Administration Heparin Sodium (Porcine) 5,000 units 04/13/18 22:00 04/15/18 10:03 Heparin SC 5,000 units Q12 NOLAN Administration Norepinephrine Bitartrate 4 mg 254 mls @ 15.24 mls/hr 04/10/18 07:15 22:00 / Sodium Chloride IV 0 mcg/min .[id number] PRN 0 mls/hr TITRATE PER MD ORDER Titration Protocol 4 MCG/MIN Vasopressin 40 units/ Sodium 42 mls @ 0.63 mls/hr 04/13/18 03:30 04/14/18 03: 30 Chloride IV 0.02 units/min .Q24H NOLAN 1.26 mls/hr Protocol Administration 0.01 UNITS/MIN Fluconazole 50 mls @ 100 mls/hr 04/13/18 16:30 04/15/18 10:06 Diflucan Iv 100 Mg/50 Ml Ns IVPB 100 mls/hr DAILY NOLAN Administration Protocol Ampicillin 2 gm/ Sodium 100 mls @ 200 mls/hr 04/13/18 18:00 04/15/18 04:59 Chloride IVPB 200 mls/hr Q6H [facility] Administration Protocol Meropenem 500 mg/ Sodium 100 mls @ 100 mls/hr 04/15/18 02:00 04/15/18 01:00 Chloride IVPB 100 mls/hr Q12H [facility] Administration Protocol Multivitamins/Vitamin C 5 ml 04/03/18 10:15 04/15/18 10:06 Multi-Delyn Liquid PO 5 ml DAILY [facility] Administration Nystatin 1 applic 04/14/18 18:00 04/15/18 10:05 Nystop Topical Powder TOP 1 applic BID [facility] Administration Pantoprazole Sodium 40 mg 04/02/18 10:00 04/15/18 10:03 Protonix Inj IVP 40 mg DAILY [facility] Administration Potassium Chloride 40 meq 04/15/18 12:00 Potassium Chloride Oral Soln PO 04/15/18 18:01 Q6 [facility] Silver Sulfadiazine 0 ea 04/08/18 10:00 04/15/18 10:05 Silvadene 1% TOP 1 applic DAILY [facility] Administration Silver Sulfadiazine 0 ea 04/11/18 10:00 04/15/18 10:05 Silvadene 1% TOP 1 applic Q12 [facility] Administration Vitamin A 1 ea 04/10/18 23:00 04/12/18 04:14 Vitamin A & D Oint Ud Foilpak TOP 1 ea Q8 PRN Administration Dry Lips - Patient Studies Lab Studies: Microbiology Studies 04/13/18 11:48 Gram Stain - Final Sputum 04/13/18 08:55 Blood Culture - Preliminary Blood NO GROWTH AFTER 48 HOURS 04/13/18 08:28 Blood Culture - Preliminary Blood NO GROWTH AFTER 48 HOURS 04/12/18 19:12 Urine Culture - Final Urine Yeast Species 04/13/18 09:20 Urine Culture - Final Urine Yeast Species Lab Studies 04/15/18 04/15/18 04/15/18 Range/Units 06:18 06:16 05:22 WBC 3.7 L D (4.8-10.8) K/uL RBC 2.57 L (3.80-5.20) Mil/uL Hgb 7.5 L (11.0-16.0) g/dL Hct 22.0 L (34.0-47.0) % MCV 85.5 (81.0-99.0) fL MCH 29.2 (27.0-31.0) pg MCHC 34.2 (33.0-37.0) g/dL RDW 15.8 H (11.5-14.5) % Plt Count 130 (130-400) K/uL MPV 9.0 (7.2-11.7) fL Neut % (Auto) 63.9 (50.0-75.0) % Lymph % (Auto) 22.5 (20.0-40.0) % Gila % (Auto) 12.0 H (0.0-10.0) % Eos % (Auto) 0.4 (0.0-4.0) % Baso % (Auto) 1.2 (0.0-2.0) % Neut # (Auto) 2.3 (1.8-7.0) K/uL Lymph # (Auto) 0.8 L (1.0-4.3) K/uL Gila # (Auto) 0.4 (0.0-0.8) K/uL Eos # (Auto) 0.0 (0.0-0.7) K/uL Baso # (Auto) 0.0 (0.0-0.2) K/uL Puncture Site Rb pCO2 37 (35-45) mm/Hg pO2 92 (80-100) mm/Hg HCO3 25.6 (21-28) mmol/L ABG pH 7.44 (7.35-7.45) ABG Total CO2 26.2 (22-28) mmol/L ABG O2 Saturation 98.6 H (95-98) % ABG Base Excess 0.9 (-2.0-3.0) mmol/L ABG Hemoglobin 7.7 L (11.7-17.4) g/dL ABG Carboxyhemoglobin 1.6 H (0.5-1.5) % POC ABG HHb (Measured) 1.4 (0.0-5.0) % ABG Methemoglobin 1.0 (0.0-3.0) % Jann Test Na A-a O2 Difference 76.0 mm/Hg Respiratory Index 0.8 Hgb O2 Saturation 96.0 (95.0-98.0) % Vent Mode Prvc Mechanical Rate 18 FiO2 30.0 % Tidal Volume 400 PEEP 5 Sodium 145 (132-148) mmol/L Potassium 2.8 L (3.6-5.2) mmol/L Chloride 105 (98-107) mmol/L Carbon Dioxide 24 (22-30) mmol/L Anion Gap 19 (10-20) BUN 40 H (7-17) mg/dL Creatinine 1.3 H (0.7-1.2) mg/dL Est GFR ( Amer) 52 Est GFR (Non-Af Amer) 43 POC Glucose (mg/dL) (65-110) mg/dL Random Glucose 69 (65-105) mg/dL Calcium 7.5 L (8.6-10.4) mg/dl Phosphorus 3.5 (2.5-4.5) mg/dL Magnesium 2.0 (1.6-2.3) mg/dL Total Bilirubin 1.0 (0.2-1.3) mg/dL AST 17 (14-36) U/L ALT 24 (9-52) U/L Alkaline Phosphatase 78 (38-126) U/L Total Protein 4.8 L (6.3-8.3) g/dL Albumin 2.5 L (3.5-5.0) g/dL Globulin 2.2 (2.2-3.9) gm/dL Albumin/Globulin Ratio 1.1 (1.0-2.1) C. difficile Ag & Toxin (NEGATIVE) Blood Type Antibody Screen 04/15/18 04/14/18 04/14/18 Range/Units 05:10 23:33 18:14 WBC (4.8-10.8) K/uL RBC (3.80-5.20) Mil/uL Hgb (11.0-16.0) g/dL Hct (34.0-47.0) % MCV (81.0-99.0) fL MCH (27.0-31.0) pg MCHC (33.0-37.0) g/dL RDW (11.5-14.5) % Plt Count (130-400) K/uL MPV (7.2-11.7) fL Neut % (Auto) (50.0-75.0) % Lymph % (Auto) (20.0-40.0) % Gila % (Auto) (0.0-10.0) % Eos % (Auto) (0.0-4.0) % Baso % (Auto) (0.0-2.0) % Neut # (Auto) (1.8-7.0) K/uL Lymph # (Auto) (1.0-4.3) K/uL Gila # (Auto) (0.0-0.8) K/uL Eos # (Auto) (0.0-0.7) K/uL Baso # (Auto) (0.0-0.2) K/uL Puncture Site pCO2 (35-45) mm/Hg pO2 (80-100) mm/Hg HCO3 (21-28) mmol/L ABG pH (7.35-7.45) ABG Total CO2 (22-28) mmol/L ABG O2 Saturation (95-98) % ABG Base Excess (-2.0-3.0) mmol/L ABG Hemoglobin (11.7-17.4) g/dL ABG Carboxyhemoglobin (0.5-1.5) % POC ABG HHb (Measured) (0.0-5.0) % ABG Methemoglobin (0.0-3.0) % Jann Test A-a O2 Difference mm/Hg Respiratory Index Hgb O2 Saturation (95.0-98.0) % Vent Mode Mechanical Rate FiO2 % Tidal Volume PEEP Sodium (132-148) mmol/L Potassium (3.6-5.2) mmol/L Chloride (98-107) mmol/L Carbon Dioxide (22-30) mmol/L Anion Gap (10-20) BUN (7-17) mg/dL Creatinine (0.7-1.2) mg/dL Est GFR ( Amer) Est GFR (Non-Af Amer) POC Glucose (mg/dL) 106 99 (65-110) mg/dL Random Glucose (65-105) mg/dL Calcium (8.6-10.4) mg/dl Phosphorus (2.5-4.5) mg/dL Magnesium (1.6-2.3) mg/dL Total Bilirubin (0.2-1.3) mg/dL AST (14-36) U/L ALT (9-52) U/L Alkaline Phosphatase (38-126) U/L Total Protein (6.3-8.3) g/dL Albumin (3.5-5.0) g/dL Globulin (2.2-3.9) gm/dL Albumin/Globulin Ratio (1.0-2.1) C. difficile Ag & Toxin Negative (NEGATIVE) Blood Type Antibody Screen 04/14/18 04/14/18 04/14/18 Range/Units 17:46 11:19 10:21 WBC (4.8-10.8) K/uL RBC (3.80-5.20) Mil/uL Hgb (11.0-16.0) g/dL Hct (34.0-47.0) % MCV (81.0-99.0) fL MCH (27.0-31.0) pg MCHC (33.0-37.0) g/dL RDW (11.5-14.5) % Plt Count (130-400) K/uL MPV (7.2-11.7) fL Neut % (Auto) (50.0-75.0) % Lymph % (Auto) (20.0-40.0) % Gila % (Auto) (0.0-10.0) % Eos % (Auto) (0.0-4.0) % Baso % (Auto) (0.0-2.0) % Neut # (Auto) (1.8-7.0) K/uL Lymph # (Auto) (1.0-4.3) K/uL Gila # (Auto) (0.0-0.8) K/uL Eos # (Auto) (0.0-0.7) K/uL Baso # (Auto) (0.0-0.2) K/uL Puncture Site pCO2 (35-45) mm/Hg pO2 (80-100) mm/Hg HCO3 (21-28) mmol/L ABG pH (7.35-7.45) ABG Total CO2 (22-28) mmol/L ABG O2 Saturation (95-98) % ABG Base Excess (-2.0-3.0) mmol/L ABG Hemoglobin (11.7-17.4) g/dL ABG Carboxyhemoglobin (0.5-1.5) % POC ABG HHb (Measured) (0.0-5.0) % ABG Methemoglobin (0.0-3.0) % Jann Test A-a O2 Difference mm/Hg Respiratory Index Hgb O2 Saturation (95.0-98.0) % Vent Mode Mechanical Rate FiO2 % Tidal Volume PEEP Sodium (132-148) mmol/L Potassium (3.6-5.2) mmol/L Chloride (98-107) mmol/L Carbon Dioxide (22-30) mmol/L Anion Gap (10-20) BUN (7-17) mg/dL Creatinine (0.7-1.2) mg/dL Est GFR ( Amer) Est GFR (Non-Af Amer) POC Glucose (mg/dL) 85 100 (65-110) mg/dL Random Glucose (65-105) mg/dL Calcium (8.6-10.4) mg/dl Phosphorus (2.5-4.5) mg/dL Magnesium (1.6-2.3) mg/dL Total Bilirubin (0.2-1.3) mg/dL AST (14-36) U/L ALT (9-52) U/L Alkaline Phosphatase (38-126) U/L Total Protein (6.3-8.3) g/dL Albumin (3.5-5.0) g/dL Globulin (2.2-3.9) gm/dL Albumin/Globulin Ratio (1.0-2.1) C. difficile Ag & Toxin (NEGATIVE) Blood Type O POSITIVE Antibody Screen Negative Laboratory Results - last 24 hr 04/14/18 04/14/18 04/14/18 10:21 11:19 17:46 WBC RBC Hgb Hct MCV MCH MCHC RDW Plt Count MPV Neut % (Auto) Lymph % (Auto) Gila % (Auto) Eos % (Auto) Baso % (Auto) Neut # (Auto) Lymph # (Auto) Gila # (Auto) Eos # (Auto) Baso # (Auto) Puncture Site pCO2 pO2 HCO3 ABG pH ABG Total CO2 ABG O2 Saturation ABG Base Excess ABG Hemoglobin ABG Carboxyhemoglobin POC ABG HHb (Measured) ABG Methemoglobin Jann Test A-a O2 Difference Respiratory Index Hgb O2 Saturation Vent Mode Mechanical Rate FiO2 Tidal Volume PEEP Sodium Potassium Chloride Carbon Dioxide Anion Gap BUN Creatinine Est GFR ( Amer) Est GFR (Non-Af Amer) POC Glucose (mg/dL) 100 85 Random Glucose Calcium Phosphorus Magnesium Total Bilirubin AST ALT Alkaline Phosphatase Total Protein Albumin Globulin Albumin/Globulin Ratio C. difficile Ag & Toxin Blood Type O POSITIVE Antibody Screen Negative 04/14/18 04/14/18 04/15/18 18:14 23:33 05:10 WBC RBC Hgb Hct MCV MCH MCHC RDW Plt Count MPV Neut % (Auto) Lymph % (Auto) Gila % (Auto) Eos % (Auto) Baso % (Auto) Neut # (Auto) Lymph # (Auto) Gila # (Auto) Eos # (Auto) Baso # (Auto) Puncture Site pCO2 pO2 HCO3 ABG pH ABG Total CO2 ABG O2 Saturation ABG Base Excess ABG Hemoglobin ABG Carboxyhemoglobin POC ABG HHb (Measured) ABG Methemoglobin Jann Test A-a O2 Difference Respiratory Index Hgb O2 Saturation Vent Mode Mechanical Rate FiO2 Tidal Volume PEEP Sodium Potassium Chloride Carbon Dioxide Anion Gap BUN Creatinine Est GFR ( Amer) Est GFR (Non-Af Amer) POC Glucose (mg/dL) 99 106 Random Glucose Calcium Phosphorus Magnesium Total Bilirubin AST ALT Alkaline Phosphatase Total Protein Albumin Globulin Albumin/Globulin Ratio C. difficile Ag & Toxin Negative Blood Type Antibody Screen 04/15/18 04/15/18 04/15/18 05:22 06:16 06:18 WBC 3.7 L D RBC 2.57 L Hgb 7.5 L Hct 22.0 L MCV 85.5 MCH 29.2 MCHC 34.2 RDW 15.8 H Plt Count 130 MPV 9.0 Neut % (Auto) 63.9 Lymph % (Auto) 22.5 Gila % (Auto) 12.0 H Eos % (Auto) 0.4 Baso % (Auto) 1.2 Neut # (Auto) 2.3 Lymph # (Auto) 0.8 L Gila # (Auto) 0.4 Eos # (Auto) 0.0 Baso # (Auto) 0.0 Puncture Site Rb pCO2 37 pO2 92 HCO3 25.6 ABG pH 7.44 ABG Total CO2 26.2 ABG O2 Saturation 98.6 H ABG Base Excess 0.9 ABG Hemoglobin 7.7 L ABG Carboxyhemoglobin 1.6 H POC ABG HHb (Measured) 1.4 ABG Methemoglobin 1.0 Jann Test Na A-a O2 Difference 76.0 Respiratory Index 0.8 Hgb O2 Saturation 96.0 Vent Mode Prvc Mechanical Rate 18 FiO2 30.0 Tidal Volume 400 PEEP 5 Sodium 145 Potassium 2.8 L Chloride 105 Carbon Dioxide 24 Anion Gap 19 BUN 40 H Creatinine 1.3 H Est GFR ( Amer) 52 Est GFR (Non-Af Amer) 43 POC Glucose (mg/dL) Random Glucose 69 Calcium 7.5 L Phosphorus 3.5 Magnesium 2.0 Total Bilirubin 1.0 AST 17 ALT 24 Alkaline Phosphatase 78 Total Protein 4.8 L Albumin 2.5 L Globulin 2.2 Albumin/Globulin Ratio 1.1 C. difficile Ag & Toxin Blood Type Antibody Screen Fingerstick Blood Sugar Results: 106 Review of Systems - Review of Systems Review of Systems: limited ROS 2nd intubation Critical Care Progress Note - Nutrition Nutrition: Nutrition Category Date Time Status NPO Diet [DIET] Diets 04/06/18 Breakfast Active Assessment/Plan - Assessment and Plan (Free Text) Assessment: 52 y/o female with pmx of weight loss with unknown PMx presents from [facility] with septic shock and HD 2nd LULA. -Septic shock: pressor requirement decreasing. listeria blood culture,continue to titrate down pressors, de-escalate abx -Acute on chronic respiratory failure: tolerated CPAP, extubated, f/u post extubation ABG -Sepsis: continue abx as per ID, de-escalate -Anemia: chronic will benefit from 1 unit PRBC -LULA: creatinine improving, suspect will require lower frequency of HD, continue as per renal -GI: continue NG tube feeds -neuro: awake, alert communicative, following simple commands -uterus mass: pending patient accounting representative eval when stable -skin: wound care, obtain plastics eval and continue oral vitamin C and MVI -continue PUD/DVT ppx -PT/OT, oob to chair as tolerated -when off pressors, contact mass general for posisble acceptance, may need transport with ACLS + cc time 40 minutes - Date & Time Date: 04/15/18 Time: 09:20
[2018-04-15 11:49] LABS: ARTERIAL BLOOD GAS HCO3 23.6 mmol/L (21-28); ARTERIAL BLOOD GAS O2 SAT 97.9 % (95-98); ARTERIAL BLOOD GAS PCO2 38 mm/Hg (35-45); ARTERIAL BLOOD GAS PH 7.39 (7.35-7.45); ARTERIAL BLOOD GAS PO2 85 mm/Hg (80-100); ARTERIAL BLOOD GAS TCO2 24.2 mmol/L (22-28)
[2018-04-15] MEDS: Potassium Chloride 20 mEq/15 ml LIQ UD PO SCH ×2 (14:37→17:51)
[2018-04-15] MEDS: Vitamins A & D Oint UD Foilpak TOP PRN (17:33)
[2018-04-15 22:33] LABS: VENOUS BLOOD GAS BASE EXCESS -5.5 mmol/L (0.0-2.0); VENOUS BLOOD GAS PCO2 27 mmHg (40-60); VENOUS BLOOD GAS PO2 38 mm/Hg (30-55); VENOUS BLOOD PH 7.42 (7.32-7.43)
--- NOTE | 2018-04-15 23:00 | CP.PCM.PN ---
Subjective - Date & Time of Evaluation Date of Evaluation: 04/15/18 Time of Evaluation: 14:00 - Subjective Subjective: follow up Nephrology Consultation Note: Assessment: critical Anuric Acute Kidney Injury (N17.9) ? etiology with 5 gram proteinuria b/l hydroureteronephrosis Hyperkalemia, HAGMA, acute respi failure, hyponatremia Fall with rhabdomyolysis, severe anemia with leukocytsosis with Sepsis (Listeria ) Hyperphosphatemia (E83.39), hypocalcemia, hyperuricemia, Vit D def, anemia, sec hyperparathyroidism leg wounds Plan hd mwf lytes reviewed anemia stable bp stable hydronephrosis b/l,stable on recent USG Physical Examination: General Appearance: frail, chronically debilitated and ill appearing, cachexic Vitals reviewed Head; Atraumatic, normocephalic EYES: Pupils are equal, Sclera is anicteric. Neck; supple no lymphadenopathy, no thyromegaly or bruit Lungs: normal respiratory rate/effort. Breath sounds bilateral equal and clear anteriorly Heart: Normal rate. s1s2 normal. No rub or gallop. Extremities: 1+ edema. No varicose veins. Neurological: Patient is awake but lethargic Skin: ecchymoses lower abdomen and dressings on b/l LE Abdomen: Abdomen is soft. Bowel sounds +. There is no abdominal tenderness, no guarding/rigidity no organomegaly. Psych: unable MSK: no joint tenderness or swelling. Access: [email or web address] Objective - Vital Signs/Intake and Output Vital Signs (last 24 hours): Temp Pulse Resp BP Pulse Ox 98.8 F 123 H 31 H 112/57 L 98 04/15/18 20:00 04/15/18 22:37 04/15/18 22:37 04/15/18 22:37 04/15/18 22:37 Intake and Output: 04/15/18 04/16/18 18:59 06:59 Intake Total 2256.2 75 Balance 2256.2 75 - Medications Medications: Current Medications Acetaminophen (Tylenol 650mg/20.3ml Solution Ud) 650 mg PO Q4 PRN PRN Reason: Fever Last Admin: 04/15/18 02:10 Dose: 650 mg Albuterol/Ipratropium (Duoneb 3 Mg/0.5 Mg (3 Ml) Ud) 3 ml INH RQ6 NOLAN Last Admin: 04/15/18 19:36 Dose: 3 ml Ascorbic Acid (Vitamin C 500 Mg Tab) 500 mg PO BID NOLAN Last Admin: 04/15/18 17:32 Dose: 500 mg Ergocalciferol (Drisdol 50,000 Intl Units Cap) 1 cap PO Q7D NOLAN Last Admin: 04/11/18 10:27 Dose: 1 cap Heparin Sodium (Porcine) (Heparin) 5,000 units SC Q12 NOLAN Last Admin: 04/15/18 21:34 Dose: 5,000 units Norepinephrine Bitartrate 4 mg (/ Sodium Chloride) 254 mls @ 15.24 mls/hr IV .[id number] PRN; Protocol; 4 MCG/MIN PRN Reason: TITRATE PER MD ORDER Last Titration: 04/14/18 22:00 Dose: 0 mcg/min, 0 mls/hr Vasopressin 40 units/ Sodium (Chloride) 42 mls @ 0.63 mls/hr IV .Q24H NOLAN; 0.01 UNITS/MIN PRN Reason: Protocol Last Titration: 04/15/18 11:38 Dose: 0 units/min, 0 mls/hr Fluconazole (Diflucan Iv 100 Mg/50 Ml Ns) 50 mls @ 100 mls/hr IVPB DAILY NOLAN PRN Reason: Protocol Last Admin: 04/15/18 10:06 Dose: 100 mls/hr Ampicillin 2 gm/ Sodium (Chloride) 100 mls @ 200 mls/hr IVPB Q6H NOLAN PRN Reason: Protocol Last Admin: 04/15/18 17:32 Dose: 200 mls/hr Meropenem 500 mg/ Sodium (Chloride) 100 mls @ 100 mls/hr IVPB Q12H NOLAN PRN Reason: Protocol Last Admin: 04/15/18 14:35 Dose: 100 mls/hr Multivitamins/Vitamin C (Multi-Delyn Liquid) 5 ml PO DAILY NOLAN Last Admin: 04/15/18 10:06 Dose: 5 ml Nystatin (Nystop Topical Powder) 1 applic TOP BID NOLAN Last Admin: 04/15/18 17:56 Dose: 1 applic Pantoprazole Sodium (Protonix Susp) 40 mg PO DAILY NOLAN Silver Sulfadiazine (Silvadene 1%) 0 ea TOP DAILY NOLAN Last Admin: 04/15/18 10:05 Dose: 1 applic Silver Sulfadiazine (Silvadene 1%) 0 ea TOP Q12 NOLAN Last Admin: 04/15/18 21:34 Dose: 1 applic Vitamin A (Vitamin A & D Oint Ud Foilpak) 1 ea TOP Q8 PRN PRN Reason: Dry Lips Last Admin: 04/15/18 17:33 Dose: 1 ea - Labs Labs: 04/15/18 06:18 04/15/18 06:16 PT 11.2 SECONDS (9.7-12.2) 04/05/18 06:15 INR 1.0 04/05/18 06:15 APTT 29 SECONDS (21-34) 04/05/18 06:15
[2018-04-16] MEDS: Meropenem 500 MG in Sodium Chloride 0.9% 100 ML IVPB SCH ×2 (01:00→13:36)
[2018-04-16] MEDS: Albuterol-Ipratrop 3 mg / 0.5 (3 ml) UD INH SCH ×4 (01:46→19:41)
[2018-04-16] MEDS: AMPicillin 2 GM in Sodium Chloride 100 ML IVPB SCH ×4 (05:00→18:10)
[2018-04-16 06:33] LABS: BASO % 1.1 % (0.0-2.0); EOS % 0.1 % (0.0-4.0); HEMOGLOBIN 9.5 g/dL (11.0-16.0); LYMPH # 0.9 K/uL (1.0-4.3); LYMPH % 19.9 % (20.0-40.0); MEAN CORPUSCULAR HEMOGLOBIN 29.2 pg (27.0-31.0); MEAN CORPUSCULAR HGB CONC 33.5 g/dL (33.0-37.0); MEAN PLATELET VOLUME 9.2 fL (7.2-11.7); MONO # 0.6 K/uL (0.0-0.8); MONO % 13.6 % (0.0-10.0); NEUT # 2.8 K/uL (1.8-7.0); NEUT % 65.3 % (50.0-75.0); NRBC % 0.1 % (0.0-2.0); RBC 3.24 Mil/uL (3.80-5.20); RED CELL DISTRIBUTION WIDTH 15.8 % (11.5-14.5); WHITE BLOOD COUNT 4.3 K/uL (4.8-10.8)
[2018-04-16 06:50] LABS: ALB/GLOB RATIO 1.1 (1.0-2.1); CALCIUM 8.6 mg/dl (8.6-10.4)
--- NOTE | 2018-04-16 07:57 | CP.PCM.PN ---
Subjective - Date & Time of Evaluation Date of Evaluation: 04/15/18 Time of Evaluation: 19:00 - Subjective Subjective: Pt is seen and examined, still on mechanical ventilator, on vassopressors, she has to be transfer to [facility] today but because of her medical unsalability she was not transferred Objective - Vital Signs/Intake and Output Vital Signs (last 24 hours): Temp Pulse Resp BP Pulse Ox 98.5 F 119 H 20 93/69 L 99 04/16/18 04:00 04/16/18 07:33 04/16/18 06:38 04/16/18 06:38 04/16/18 06:38 Intake and Output: 04/16/18 04/16/18 06:59 18:59 Intake Total 375 Output Total 2 Balance 373 - Medications Medications: Current Medications Acetaminophen (Tylenol 650mg/20.3ml Solution Ud) 650 mg PO Q4 PRN PRN Reason: Fever Last Admin: 04/15/18 02:10 Dose: 650 mg Albuterol/Ipratropium (Duoneb 3 Mg/0.5 Mg (3 Ml) Ud) 3 ml INH RQ6 [facility] Last Admin: 04/16/18 07:31 Dose: 3 ml Ascorbic Acid (Vitamin C 500 Mg Tab) 500 mg PO BID [facility] Last Admin: 04/15/18 17:32 Dose: 500 mg Ergocalciferol (Drisdol 50,000 Intl Units Cap) 1 cap PO Q7D [facility] Last Admin: 04/11/18 10:27 Dose: 1 cap Heparin Sodium (Porcine) (Heparin) 5,000 units SC Q12 [facility] Last Admin: 04/15/18 21:34 Dose: 5,000 units Norepinephrine Bitartrate 4 mg (/ Sodium Chloride) 254 mls @ 15.24 mls/hr IV .[id number] PRN; Protocol; 4 MCG/MIN PRN Reason: TITRATE PER MD ORDER Last Titration: 04/14/18 22:00 Dose: 0 mcg/min, 0 mls/hr Vasopressin 40 units/ Sodium (Chloride) 42 mls @ 0.63 mls/hr IV .Q24H [facility]; 0.01 UNITS/MIN PRN Reason: Protocol Last Admin: 04/16/18 03:00 Dose: Not Given Fluconazole (Diflucan Iv 100 Mg/50 Ml Ns) 50 mls @ 100 mls/hr IVPB DAILY [facility] PRN Reason: Protocol Last Admin: 04/15/18 10:06 Dose: 100 mls/hr Ampicillin 2 gm/ Sodium (Chloride) 100 mls @ 200 mls/hr IVPB Q6H [facility] PRN Reason: Protocol Last Admin: 04/16/18 05:00 Dose: 200 mls/hr Meropenem 500 mg/ Sodium (Chloride) 100 mls @ 100 mls/hr IVPB Q12H [facility] PRN Reason: Protocol Last Admin: 04/16/18 01:00 Dose: 100 mls/hr Multivitamins/Vitamin C (Multi-Delyn Liquid) 5 ml PO DAILY [facility] Last Admin: 04/15/18 10:06 Dose: 5 ml Nystatin (Nystop Topical Powder) 1 applic TOP BID [facility] Last Admin: 04/15/18 17:56 Dose: 1 applic Pantoprazole Sodium (Protonix Susp) 40 mg PO DAILY [facility] Silver Sulfadiazine (Silvadene 1%) 0 ea TOP DAILY [facility] Last Admin: 04/15/18 10:05 Dose: 1 applic Silver Sulfadiazine (Silvadene 1%) 0 ea TOP Q12 [facility] Last Admin: 04/15/18 21:34 Dose: 1 applic Vitamin A (Vitamin A & D Oint Ud Foilpak) 1 ea TOP Q8 PRN PRN Reason: Dry Lips Last Admin: 04/15/18 17:33 Dose: 1 ea - Labs Labs: 04/16/18 06:22 04/16/18 06:19 PT 11.2 SECONDS (9.7-12.2) 04/05/18 06:15 INR 1.0 04/05/18 06:15 APTT 29 SECONDS (21-34) 04/05/18 06:15 - Constitutional Appears: No Acute Distress - Head Exam Head Exam: ATRAUMATIC, NORMAL INSPECTION, NORMOCEPHALIC - Eye Exam Eye Exam: EOMI, Normal appearance, PERRL Pupil Exam: NORMAL ACCOMODATION, PERRL - Respiratory Exam Respiratory Exam: Decreased Breath Sounds, Rales, NORMAL BREATHING PATTERN - Cardiovascular Exam Cardiovascular Exam: REGULAR RHYTHM, +S1, +S2. absent: Murmur - GI/Abdominal Exam GI & Abdominal Exam: Soft, Normal Bowel Sounds. absent: Tenderness Assessment and Plan (1) Acute respiratory failure Status: Acute (2) Acute tubular necrosis Status: Acute (3) Listeria septicemia Status: Acute (4) Leukocytosis Status: Acute
--- NOTE | 2018-04-16 07:57 | CP.PCM.PN ---
Subjective - Date & Time of Evaluation Date of Evaluation: 04/16/18 Time of Evaluation: 20:00 - Subjective Subjective: Pt seen and examined, remains weak, on BIPAP, off ventilator, afebrile, on antibiotics, her creatinine is 2.5, she is emaciated, under nourished and chronically sick, she could not be transferred to [place] last week Objective - Vital Signs/Intake and Output Vital Signs (last 24 hours): Temp Pulse Resp BP Pulse Ox 98.5 F 119 H 20 93/69 L 99 04/16/18 04:00 04/16/18 07:33 04/16/18 06:38 04/16/18 06:38 04/16/18 06:38 Intake and Output: 04/16/18 04/16/18 06:59 18:59 Intake Total 375 Output Total 2 Balance 373 - Medications Medications: Current Medications Acetaminophen (Tylenol 650mg/20.3ml Solution Ud) 650 mg PO Q4 PRN PRN Reason: Fever Last Admin: 04/15/18 02:10 Dose: 650 mg Albuterol/Ipratropium (Duoneb 3 Mg/0.5 Mg (3 Ml) Ud) 3 ml INH RQ6 [facility] Last Admin: 04/16/18 07:31 Dose: 3 ml Ascorbic Acid (Vitamin C 500 Mg Tab) 500 mg PO BID [facility] Last Admin: 04/15/18 17:32 Dose: 500 mg Ergocalciferol (Drisdol 50,000 Intl Units Cap) 1 cap PO Q7D [facility] Last Admin: 04/11/18 10:27 Dose: 1 cap Heparin Sodium (Porcine) (Heparin) 5,000 units SC Q12 [facility] Last Admin: 04/15/18 21:34 Dose: 5,000 units Norepinephrine Bitartrate 4 mg (/ Sodium Chloride) 254 mls @ 15.24 mls/hr IV .[id number] PRN; Protocol; 4 MCG/MIN PRN Reason: TITRATE PER MD ORDER Last Titration: 04/14/18 22:00 Dose: 0 mcg/min, 0 mls/hr Vasopressin 40 units/ Sodium (Chloride) 42 mls @ 0.63 mls/hr IV .Q24H [facility]; 0.01 UNITS/MIN PRN Reason: Protocol Last Admin: 04/16/18 03:00 Dose: Not Given Fluconazole (Diflucan Iv 100 Mg/50 Ml Ns) 50 mls @ 100 mls/hr IVPB DAILY [facility] PRN Reason: Protocol Last Admin: 04/15/18 10:06 Dose: 100 mls/hr Ampicillin 2 gm/ Sodium (Chloride) 100 mls @ 200 mls/hr IVPB Q6H [facility] PRN Reason: Protocol Last Admin: 04/16/18 05:00 Dose: 200 mls/hr Meropenem 500 mg/ Sodium (Chloride) 100 mls @ 100 mls/hr IVPB Q12H [facility] PRN Reason: Protocol Last Admin: 04/16/18 01:00 Dose: 100 mls/hr Multivitamins/Vitamin C (Multi-Delyn Liquid) 5 ml PO DAILY [facility] Last Admin: 04/15/18 10:06 Dose: 5 ml Nystatin (Nystop Topical Powder) 1 applic TOP BID [facility] Last Admin: 04/15/18 17:56 Dose: 1 applic Pantoprazole Sodium (Protonix Susp) 40 mg PO DAILY [facility] Silver Sulfadiazine (Silvadene 1%) 0 ea TOP DAILY [facility] Last Admin: 04/15/18 10:05 Dose: 1 applic Silver Sulfadiazine (Silvadene 1%) 0 ea TOP Q12 [facility] Last Admin: 04/15/18 21:34 Dose: 1 applic Vitamin A (Vitamin A & D Oint Ud Foilpak) 1 ea TOP Q8 PRN PRN Reason: Dry Lips Last Admin: 04/15/18 17:33 Dose: 1 ea - Labs Labs: 04/16/18 06:22 04/16/18 06:19 PT 11.2 SECONDS (9.7-12.2) 04/05/18 06:15 INR 1.0 04/05/18 06:15 APTT 29 SECONDS (21-34) 04/05/18 06:15 - Constitutional Appears: No Acute Distress - Head Exam Head Exam: ATRAUMATIC, NORMAL INSPECTION, NORMOCEPHALIC - Eye Exam Eye Exam: EOMI, Normal appearance, PERRL Pupil Exam: NORMAL ACCOMODATION, PERRL - Respiratory Exam Respiratory Exam: Clear to Ausculation Bilateral, NORMAL BREATHING PATTERN - Cardiovascular Exam Cardiovascular Exam: REGULAR RHYTHM, +S1, +S2. absent: Murmur - GI/Abdominal Exam GI & Abdominal Exam: Soft, Normal Bowel Sounds. absent: Tenderness - Rectal Exam Rectal Exam: Deferred Assessment and Plan (1) Acute respiratory failure Status: Acute (2) Acute tubular necrosis Status: Acute (3) Listeria septicemia Status: Acute (4) Leukocytosis Status: Acute
--- NOTE | 2018-04-16 09:07 | RAD ---
HISTORY: infiltrate COMPARISON: Portable chest 04/15/2018. FINDINGS: LUNGS: Endotracheal tube is not identified suggesting prior extubation. Clinically correlate. Left central venous line and right central venous dialysis catheter unchanged in position as well as nasogastric tube. Right hemidiaphragm elevation is unchanged with no definitive infiltrate identified bilaterally in the interval. PLEURA: No significant pleural effusion identified, no pneumothorax apparent. CARDIOVASCULAR: Normal. OSSEOUS STRUCTURES: No significant abnormalities. VISUALIZED UPPER ABDOMEN: Normal. OTHER FINDINGS: None. IMPRESSION: Resolution of prior right perihilar atelectasis or infiltrate. No left-sided infiltrate. Right hemidiaphragm elevation stable.
[2018-04-16] MEDS: Albumin Human 25% (12.5 gm/50 ml) IV SCH ×3 (09:57→20:23)
[2018-04-16] MEDS: Pantoprazole 40 mg Susp UD PO SCH (09:58)
[2018-04-16] MEDS: Vitamins A & D Oint UD Foilpak TOP PRN ×2 (09:58→20:23)
[2018-04-16] MEDS: Fluconazole IV 100mg/50 ml NS 50 ML IVPB SCH (09:59)
[2018-04-16] MEDS: Silver Sulfadiazine 1% Cream (400 gm) TOP SCH ×3 (10:00→21:30)
[2018-04-16] MEDS: Multiple Vitamins Oral Solution PO SCH (11:22)
--- NOTE | 2018-04-16 12:18 | CP.PCM.PN ---
Subjective - Date & Time of Evaluation Date of Evaluation: 04/16/18 Time of Evaluation: 10:00 - Subjective Subjective: Patient was placed on bi-pap at night, off bi-pap during the day Objective - Vital Signs/Intake and Output Vital Signs (last 24 hours): Temp Pulse Resp BP Pulse Ox 98.1 F 117 H 20 89/54 L 94 L 04/16/18 08:00 04/16/18 11:37 04/16/18 11:37 04/16/18 11:37 04/16/18 11:37 Intake and Output: 04/16/18 04/16/18 06:59 18:59 Intake Total 375 605 Output Total 2 Balance 373 605 - Medications Medications: Current Medications Acetaminophen (Tylenol 650mg/20.3ml Solution Ud) 650 mg PO Q4 PRN PRN Reason: Fever Last Admin: 04/15/18 02:10 Dose: 650 mg Albumin Human (Albumin Human 25% (12.5 Gm/50 Ml)) 25 gm IV Q6H [facility] Stop: 04/17/18 03:01 Last Admin: 04/16/18 09:57 Dose: 25 gm Albuterol/Ipratropium (Duoneb 3 Mg/0.5 Mg (3 Ml) Ud) 3 ml INH RQ6 [facility] Last Admin: 04/16/18 07:31 Dose: 3 ml Ascorbic Acid (Vitamin C 500 Mg Tab) 500 mg PO BID [facility] Last Admin: 04/16/18 09:58 Dose: 500 mg Ergocalciferol (Drisdol 50,000 Intl Units Cap) 1 cap PO Q7D [facility] Last Admin: 04/11/18 10:27 Dose: 1 cap Heparin Sodium (Porcine) (Heparin) 5,000 units SC Q12 [facility] Last Admin: 04/16/18 09:58 Dose: 5,000 units Fluconazole (Diflucan Iv 100 Mg/50 Ml Ns) 50 mls @ 100 mls/hr IVPB DAILY [facility] PRN Reason: Protocol Last Admin: 04/16/18 09:59 Dose: 100 mls/hr Ampicillin 2 gm/ Sodium (Chloride) 100 mls @ 200 mls/hr IVPB Q6H [facility] PRN Reason: Protocol Last Admin: 04/16/18 11:22 Dose: 200 mls/hr Meropenem 500 mg/ Sodium (Chloride) 100 mls @ 100 mls/hr IVPB Q12H [facility] PRN Reason: Protocol Last Admin: 04/16/18 01:00 Dose: 100 mls/hr Multivitamins/Vitamin C (Multi-Delyn Liquid) 5 ml PO DAILY [facility] Last Admin: 04/16/18 11:22 Dose: 5 ml Nystatin (Nystop Topical Powder) 1 applic TOP BID [facility] Last Admin: 04/16/18 10:00 Dose: 1 applic Pantoprazole Sodium (Protonix Susp) 40 mg PO DAILY [facility] Last Admin: 04/16/18 09:58 Dose: 40 mg Silver Sulfadiazine (Silvadene 1%) 0 ea TOP DAILY [facility] Last Admin: 04/16/18 10:00 Dose: 1 applic Silver Sulfadiazine (Silvadene 1%) 0 ea TOP Q12 [facility] Last Admin: 04/16/18 10:01 Dose: 1 applic Vitamin A (Vitamin A & D Oint Ud Foilpak) 1 ea TOP Q8 PRN PRN Reason: Dry Lips Last Admin: 04/16/18 09:58 Dose: 1 ea - Labs Labs: 04/16/18 06:22 04/16/18 06:19 PT 11.2 SECONDS (9.7-12.2) 04/05/18 06:15 INR 1.0 04/05/18 06:15 APTT 29 SECONDS (21-34) 04/05/18 06:15 - Constitutional Appears: Non-toxic, No Acute Distress - Eye Exam Pupil Exam: NORMAL ACCOMODATION - Respiratory Exam Respiratory Exam: NORMAL BREATHING PATTERN. absent: Rhonchi, Wheezes, Respiratory Distress - Cardiovascular Exam Cardiovascular Exam: REGULAR RHYTHM, +S1, +S2 - GI/Abdominal Exam GI & Abdominal Exam: Normal Bowel Sounds - Extremities Exam Extremities Exam: Pedal Edema - Neurological Exam Neurological Exam: Alert, Awake, Oriented x3 - Skin Additional comments: skin regeneration Assessment and Plan - Assessment and Plan (Free Text) Assessment: 52 y/o female with pmx of weight loss with unknown PMx presents from [facility] with septic shock and HD 2nd LULA. -Septic shock: off pressors --resolved -Acute on chronic respiratory failure: tolerated CPAp at night, CPAP qhs -Sepsis: continue abx as per ID, de-escalate -Anemia: chronic will continue to monitor -LULA: creatinine improving, suspect will require lower frequency of HD, continue as per renal -Hypernatremia: continue albumin, add free water to NG tube feeds -GI: continue NG tube feeds with free water -neuro: awake, alert communicative, following simple commands -uterus mass: pending janitor supervisor eval when stable -skin: wound care, obtain plastics eval and continue oral vitamin C and MVI -continue PUD/DVT ppx -PT/OT, oob to chair as tolerated -unable to contact [facility] on Tuesday
[2018-04-16] MEDS: Acetaminophen 650mg/20.3ml solution UD PO PRN (23:45)
[2018-04-17] MEDS: AMPicillin 2 GM in Sodium Chloride 100 ML IVPB SCH ×4 (00:16→17:21)
[2018-04-17] MEDS: Meropenem 500 MG in Sodium Chloride 0.9% 100 ML IVPB SCH ×2 (01:33→13:17)
[2018-04-17] MEDS: Albuterol-Ipratrop 3 mg / 0.5 (3 ml) UD INH SCH ×4 (01:47→19:29)
[2018-04-17] MEDS: Albumin Human 25% (12.5 gm/50 ml) IV SCH (02:34)
[2018-04-17] MEDS: Vitamins A & D Oint UD Foilpak TOP PRN ×2 (05:01→21:18)
[2018-04-17 05:35] LABS: BASO # 0.1 K/uL (0.0-0.2); BASO % 1.2 % (0.0-2.0); EOS % 0.6 % (0.0-4.0); HEMOGLOBIN 8.2 g/dL (11.0-16.0); MEAN CELL VOLUME 87.4 fL (81.0-99.0); MEAN CORPUSCULAR HEMOGLOBIN 29.4 pg (27.0-31.0); MEAN CORPUSCULAR HGB CONC 33.7 g/dL (33.0-37.0); MEAN PLATELET VOLUME 8.6 fL (7.2-11.7); MONO # 0.7 K/uL (0.0-0.8); MONO % 13.3 % (0.0-10.0); NEUT # 3.2 K/uL (1.8-7.0); NEUT % 64.9 % (50.0-75.0); RBC 2.77 Mil/uL (3.80-5.20); RED CELL DISTRIBUTION WIDTH 15.8 % (11.5-14.5); WHITE BLOOD COUNT 4.9 K/uL (4.8-10.8)
[2018-04-17 06:03] LABS: ARTERIAL BLOOD GAS HCO3 21.2 mmol/L (21-28); ARTERIAL BLOOD GAS HEMOGLOBIN 9.7 g/dL (11.7-17.4); ARTERIAL BLOOD GAS O2 SAT 98.4 % (95-98); ARTERIAL BLOOD GAS PCO2 38 mm/Hg (35-45); ARTERIAL BLOOD GAS PH 7.34 (7.35-7.45); ARTERIAL BLOOD GAS PO2 101 mm/Hg (80-100); ARTERIAL BLOOD GAS TCO2 21.7 mmol/L (22-28)
[2018-04-17 06:07] LABS: ALB/GLOB RATIO 1.3 (1.0-2.1); ALBUMIN 3.6 g/dL (3.5-5.0); CALCIUM 9.1 mg/dl (8.6-10.4)
--- NOTE | 2018-04-17 08:05 | RAD ---
HISTORY: follow up COMPARISON: Portable chest 04/16/2018. FINDINGS: Nasogastric tube, right center venous dialysis catheter and left central venous catheter unchanged in position. LUNGS: Right hemidiaphragm elevation is again evident with limited bibasilar dependent atelectasis once again evident. PLEURA: No significant pleural effusion identified, no pneumothorax apparent. CARDIOVASCULAR: Normal. OSSEOUS STRUCTURES: No significant abnormalities. VISUALIZED UPPER ABDOMEN: Normal. OTHER FINDINGS: None. IMPRESSION: Limited bibasilar atelectasis identified. Tubes and catheters unchanged in position and right hemidiaphragm remains elevated.
[2018-04-17] MEDS: Pantoprazole 40 mg Susp UD PO SCH (09:37)
[2018-04-17] MEDS: Multiple Vitamins Oral Solution PO SCH (09:38)
[2018-04-17] MEDS: Silver Sulfadiazine 1% Cream (400 gm) TOP SCH ×3 (09:39→21:18)
[2018-04-17] MEDS: Fluconazole IV 100mg/50 ml NS 50 ML IVPB SCH (09:57)
--- NOTE | 2018-04-17 13:02 | CP.PCM.PN ---
Subjective - Date & Time of Evaluation Date of Evaluation: 04/15/18 Time of Evaluation: 16:00 - Subjective Subjective: Appears fatigued Objective - Vital Signs/Intake and Output Vital Signs (last 24 hours): Temp Pulse Resp BP Pulse Ox 99.1 F 104 H 21 111/57 L 98 04/17/18 08:00 04/17/18 11:15 04/17/18 11:00 04/17/18 10:37 04/17/18 11:00 Intake and Output: 04/17/18 04/17/18 06:59 18:59 Intake Total 620 180 Output Total 200 Balance 420 180 - Medications Medications: Current Medications Acetaminophen (Tylenol 650mg/20.3ml Solution Ud) 650 mg PO Q4 PRN PRN Reason: Fever Last Admin: 04/16/18 23:45 Dose: 650 mg Albuterol/Ipratropium (Duoneb 3 Mg/0.5 Mg (3 Ml) Ud) 3 ml INH RQ6 [facility] Last Admin: 04/17/18 07:34 Dose: 3 ml Ascorbic Acid (Vitamin C 500 Mg Tab) 500 mg PO BID [facility] Last Admin: 04/17/18 09:37 Dose: 500 mg Ergocalciferol (Drisdol 50,000 Intl Units Cap) 1 cap PO Q7D [facility] Last Admin: 04/11/18 10:27 Dose: 1 cap Heparin Sodium (Porcine) (Heparin) 5,000 units SC Q12 [facility] Last Admin: 04/17/18 09:37 Dose: 5,000 units Fluconazole (Diflucan Iv 100 Mg/50 Ml Ns) 50 mls @ 100 mls/hr IVPB DAILY [facility] PRN Reason: Protocol Last Admin: 04/17/18 09:57 Dose: 100 mls/hr Ampicillin 2 gm/ Sodium (Chloride) 100 mls @ 200 mls/hr IVPB Q6H [facility] PRN Reason: Protocol Last Admin: 04/17/18 11:59 Dose: 200 mls/hr Meropenem 500 mg/ Sodium (Chloride) 100 mls @ 100 mls/hr IVPB Q12H [facility] PRN Reason: Protocol Last Admin: 04/17/18 01:33 Dose: 100 mls/hr Dextrose (Dextrose 10% In Water) 500 mls @ 30 mls/hr IV .[id number] [facility] Last Admin: 04/17/18 09:37 Dose: 30 mls/hr Multivitamins/Vitamin C 10 ml/Insulin Human Regular 10 unit / Amino Acids 1, 010.1 mls @ 42 mls/hr IV .Q24H [facility] Fat Emulsion Intravenous (Intralipid 20%) 250 mls @ 42 mls/hr IV QOD@1800 [facility] Multivitamins/Vitamin C (Multi-Delyn Liquid) 5 ml PO DAILY [facility] Last Admin: 04/17/18 09:38 Dose: 5 ml Nystatin (Nystop Topical Powder) 1 applic TOP BID [facility] Last Admin: 04/17/18 09:39 Dose: 1 applic Pantoprazole Sodium (Protonix Susp) 40 mg PO DAILY [facility] Last Admin: 04/17/18 09:37 Dose: 40 mg Silver Sulfadiazine (Silvadene 1%) 0 ea TOP DAILY [facility] Last Admin: 04/17/18 09:58 Dose: 1 applic Silver Sulfadiazine (Silvadene 1%) 0 ea TOP Q12 [facility] Last Admin: 04/17/18 09:39 Dose: 1 applic Vitamin A (Vitamin A & D Oint Ud Foilpak) 1 ea TOP Q8 PRN PRN Reason: Dry Lips Last Admin: 04/17/18 05:01 Dose: 1 ea - Labs Labs: 04/17/18 05:22 04/17/18 05:22 PT 11.2 SECONDS (9.7-12.2) 04/05/18 06:15 INR 1.0 04/05/18 06:15 APTT 29 SECONDS (21-34) 04/05/18 06:15 - Head Exam Head Exam: ATRAUMATIC - Eye Exam Eye Exam: Normal appearance - ENT Exam ENT Exam: Mucous Membranes Dry - Respiratory Exam Respiratory Exam: NORMAL BREATHING PATTERN - Cardiovascular Exam Cardiovascular Exam: +S1, +S2 - GI/Abdominal Exam GI & Abdominal Exam: Normal Bowel Sounds Assessment and Plan (1) Anemia Assessment & Plan: chronic disease and renal disease transfusion suppport PRN EPO per renal Status: Acute (2) Coagulopathy Assessment & Plan: nutritional Status: Acute
--- NOTE | 2018-04-17 13:04 | CP.PCM.PN ---
Subjective - Date & Time of Evaluation Date of Evaluation: 04/16/18 Time of Evaluation: 14:00 - Subjective Subjective: Appears comfortable Objective - Vital Signs/Intake and Output Vital Signs (last 24 hours): Temp Pulse Resp BP Pulse Ox 99.1 F 107 H 18 108/58 L 98 04/17/18 08:00 04/17/18 13:00 04/17/18 13:00 04/17/18 12:38 04/17/18 13:00 Intake and Output: 04/17/18 04/17/18 06:59 18:59 Intake Total 620 340 Output Total 200 Balance 420 340 - Medications Medications: Current Medications Acetaminophen (Tylenol 650mg/20.3ml Solution Ud) 650 mg PO Q4 PRN PRN Reason: Fever Last Admin: 04/16/18 23:45 Dose: 650 mg Albuterol/Ipratropium (Duoneb 3 Mg/0.5 Mg (3 Ml) Ud) 3 ml INH RQ6 [facility] Last Admin: 04/17/18 07:34 Dose: 3 ml Ascorbic Acid (Vitamin C 500 Mg Tab) 500 mg PO BID [facility] Last Admin: 04/17/18 09:37 Dose: 500 mg Ergocalciferol (Drisdol 50,000 Intl Units Cap) 1 cap PO Q7D [facility] Last Admin: 04/11/18 10:27 Dose: 1 cap Heparin Sodium (Porcine) (Heparin) 5,000 units SC Q12 [facility] Last Admin: 04/17/18 09:37 Dose: 5,000 units Fluconazole (Diflucan Iv 100 Mg/50 Ml Ns) 50 mls @ 100 mls/hr IVPB DAILY [facility] PRN Reason: Protocol Last Admin: 04/17/18 09:57 Dose: 100 mls/hr Ampicillin 2 gm/ Sodium (Chloride) 100 mls @ 200 mls/hr IVPB Q6H [facility] PRN Reason: Protocol Last Admin: 04/17/18 11:59 Dose: 200 mls/hr Meropenem 500 mg/ Sodium (Chloride) 100 mls @ 100 mls/hr IVPB Q12H [facility] PRN Reason: Protocol Last Admin: 04/17/18 01:33 Dose: 100 mls/hr Dextrose (Dextrose 10% In Water) 500 mls @ 30 mls/hr IV .[id number] [facility] Last Admin: 04/17/18 09:37 Dose: 30 mls/hr Multivitamins/Vitamin C 10 ml/Insulin Human Regular 10 unit / Amino Acids 1, 010.1 mls @ 42 mls/hr IV .Q24H [facility] Fat Emulsion Intravenous (Intralipid 20%) 250 mls @ 42 mls/hr IV QOD@1800 [facility] Multivitamins/Vitamin C (Multi-Delyn Liquid) 5 ml PO DAILY [facility] Last Admin: 04/17/18 09:38 Dose: 5 ml Nystatin (Nystop Topical Powder) 1 applic TOP BID [facility] Last Admin: 04/17/18 09:39 Dose: 1 applic Pantoprazole Sodium (Protonix Susp) 40 mg PO DAILY [facility] Last Admin: 04/17/18 09:37 Dose: 40 mg Silver Sulfadiazine (Silvadene 1%) 0 ea TOP DAILY [facility] Last Admin: 04/17/18 09:58 Dose: 1 applic Silver Sulfadiazine (Silvadene 1%) 0 ea TOP Q12 [facility] Last Admin: 04/17/18 09:39 Dose: 1 applic Vitamin A (Vitamin A & D Oint Ud Foilpak) 1 ea TOP Q8 PRN PRN Reason: Dry Lips Last Admin: 04/17/18 05:01 Dose: 1 ea - Labs Labs: 04/17/18 05:22 04/17/18 05:22 PT 11.2 SECONDS (9.7-12.2) 04/05/18 06:15 INR 1.0 04/05/18 06:15 APTT 29 SECONDS (21-34) 04/05/18 06:15 - Head Exam Head Exam: ATRAUMATIC - Eye Exam Eye Exam: Normal appearance - ENT Exam ENT Exam: Mucous Membranes Dry - Respiratory Exam Respiratory Exam: NORMAL BREATHING PATTERN - Cardiovascular Exam Cardiovascular Exam: +S1, +S2 - GI/Abdominal Exam GI & Abdominal Exam: Normal Bowel Sounds Assessment and Plan (1) Anemia Assessment & Plan: chronic disease and renal disease transfusion suppport PRN EPO per renal Status: Acute (2) Coagulopathy Assessment & Plan: nutritional Status: Acute
--- NOTE | 2018-04-17 13:28 | CP.CCUPN ---
CCU Subjective - Physician Review Events Since Last Encounter (Free Text): 04/17/18 13:25 Patient is lying down. On BiPAP. Patient was extubated 48 hours ago. She is extremely weak. Extensive skin excoriation, and also minimal healing noted in the skin. Patient has at least epidermal loss of accompanying the lower abdomen and upper thighs. Dressing of the wounds in the lower extremities noted. Being dressed with silver nitrate and dry dressing. Diarrhea noted. Visit hemodialysis. Not tolerating the oral feeding, nutrition the patient is not able to maintain good nutrition Critical Care Time Spent (in minutes): 45 CCU Objective - Vital Signs / Intake & Output Vital Signs (Last 4 hours): Vital Signs Temp Pulse Resp BP Pulse Ox 04/17/18 13:00 107 H 18 98 04/17/18 12:38 104 H 21 108/58 L 98 04/17/18 12:00 98.0 F 106 H 20 99 04/17/18 11:36 104 H 15 135/63 98 04/17/18 11:15 104 H 04/17/18 11:00 105 H 21 98 04/17/18 10:37 102 H 21 111/57 L 95 04/17/18 10:00 109 H 23 98 04/17/18 09:37 108 H 23 112/68 96 Intake and Output (Last 8hrs): Intake & Output 04/16/18 04/17/18 04/17/18 22:59 06:59 14:59 Intake Total 365 520 340 Output Total 100 200 Balance 265 320 340 Weight 98 lb Intake: Intake, IV Amount 300 400 240 Left Distal Port Internal 300 400 90 Jugular Left Medial Port Internal 0 Jugular Left Proximal Port 150 Internal Jugular Oral 100 Tube Feeding 35 0 0 Other 30 120 Output: Gastric Amount 100 200 Stomach 100 200 Emesis 0 Other: # Voids Urine, Voided 0 0 0 # Bowel Movements 0 0 0 - Physical Exam Narrative Physical Exam (Free Text): 04/17/18 13:26 Patient is extremely weak now. On BiPAP. Awake and responding. Chest good air entry, regular heart sounds. Abdomen soft, edema generalized to noted Significant skin excoriations, and skin changes noted, sloughing of the skin also present in the lower abdomen and upper thigh in the lower back. Being dressed twice a day RIGHT OF WAY [employer] alert, awake and following simple commands. Head: Positive for: Atraumatic Mouth: Positive for: Moist Mucous Membranes Respiratory/Chest: Positive for: Good Air Exchange. Negative for: Respiratory Distress, Accessory Muscle Use Cardiovascular: Positive for: Normal S1, S2, Gallop Abdomen: Positive for: Distention, Other (abdomen reveals a 5 cm circular bulb no Bowel sounds in bulb). Negative for: Tenderness, Rebound, Guarding Upper Extremity: Positive for: Edema. Negative for: Cyanosis Lower Extremity: Positive for: Edema, Other (non-blanching ecchymotic lesions covering more than 25 percent of lower extremity and abdomen. S/P debridement with Dressing b/L. ) Neurological: Negative for: GCS=15 (11T) Psychiatric: Positive for: Alert, Oriented x 3 - Medications Active Medications: Active Medications Generic Name Dose Route Start Last Admin Trade Name Freq PRN Reason Stop Dose Admin Acetaminophen 650 mg 04/13/18 07:37 04/16/18 23:45 Tylenol 650mg/20.3ml Solution Ud PO 650 mg Q4 PRN Administration Fever Albuterol/Ipratropium 3 ml 04/15/18 08:00 04/17/18 07:34 Duoneb 3 Mg/0.5 Mg (3 Ml) Ud INH 3 ml RQ6 NOLAN Administration Ascorbic Acid 500 mg 04/02/18 10:00 04/17/18 09:37 Vitamin C 500 Mg Tab PO 500 mg BID NOLAN Administration Ergocalciferol 1 cap 04/04/18 10:45 04/11/18 10:27 Drisdol 50,000 Intl Units Cap PO 1 cap Q7D NOLAN Administration Heparin Sodium (Porcine) 5,000 units 04/13/18 22:00 04/17/18 09:37 Heparin SC 5,000 units Q12 NOLAN Administration Fluconazole 50 mls @ 100 mls/hr 04/13/18 16:30 04/17/18 09:57 Diflucan Iv 100 Mg/50 Ml Ns IVPB 100 mls/hr DAILY NOLAN Administration Protocol Ampicillin 2 gm/ Sodium 100 mls @ 200 mls/hr 04/13/18 18:00 04/17/18 11:59 Chloride IVPB 200 mls/hr Q6H NOLAN Administration Protocol Meropenem 500 mg/ Sodium 100 mls @ 100 mls/hr 04/15/18 02:00 04/17/18 13:17 Chloride IVPB 100 mls/hr Q12H NOLAN Administration Protocol Dextrose 500 mls @ 30 mls/hr 04/17/18 09:00 04/17/18 09:37 Dextrose 10% In Water IV 30 mls/hr .[id number] NOLAN Administration Multivitamins/Vitamin C 10 ml/ 1,010.1 mls @ 42 mls/hr 04/17/18 18:00 Insulin Human Regular 10 unit IV / Amino Acids .Q24H NOLAN Fat Emulsion Intravenous 250 mls @ 42 mls/hr 04/17/18 18:00 Intralipid 20% IV QOD@1800 NOLAN Multivitamins/Vitamin C 5 ml 04/03/18 10:15 04/17/18 09:38 Multi-Delyn Liquid PO 5 ml DAILY NOLAN Administration Nystatin 1 applic 04/14/18 18:00 04/17/18 09:39 Nystop Topical Powder TOP 1 applic BID NOLAN Administration Pantoprazole Sodium 40 mg 04/16/18 10:00 04/17/18 09:37 Protonix Susp PO 40 mg DAILY NOLAN Administration Silver Sulfadiazine 0 ea 04/08/18 10:00 04/17/18 09:58 Silvadene 1% TOP 1 applic DAILY NOLAN Administration Silver Sulfadiazine 0 ea 04/11/18 10:00 04/17/18 09:39 Silvadene 1% TOP 1 applic Q12 NOLAN Administration Vitamin A 1 ea 04/10/18 23:00 04/17/18 05:01 Vitamin A & D Oint Ud Foilpak TOP 1 ea Q8 PRN Administration Dry Lips - Patient Studies Lab Studies: Microbiology Studies 04/13/18 08:55 Blood Culture - Preliminary Blood NO GROWTH AFTER 4 DAYS 04/13/18 08:28 Blood Culture - Preliminary Blood NO GROWTH AFTER 4 DAYS Lab Studies 04/17/18 04/17/18 04/17/18 Range/Units 11:35 05:38 05:22 WBC (4.8-10.8) K/uL RBC (3.80-5.20) Mil/uL Hgb (11.0-16.0) g/dL Hct (34.0-47.0) % MCV (81.0-99.0) fL MCH (27.0-31.0) pg MCHC (33.0-37.0) g/dL RDW (11.5-14.5) % Plt Count (130-400) K/uL MPV (7.2-11.7) fL Neut % (Auto) (50.0-75.0) % Lymph % (Auto) (20.0-40.0) % [place] % (Auto) (0.0-10.0) % Eos % (Auto) (0.0-4.0) % Baso % (Auto) (0.0-2.0) % Neut # (Auto) (1.8-7.0) K/uL Lymph # (Auto) (1.0-4.3) K/uL [place] # (Auto) (0.0-0.8) K/uL Eos # (Auto) (0.0-0.7) K/uL Baso # (Auto) (0.0-0.2) K/uL Puncture Site Rb pCO2 38 (35-45) mm/Hg pO2 101 H (80-100) mm/Hg HCO3 21.2 (21-28) mmol/L ABG pH 7.34 L (7.35-7.45) ABG Total CO2 21.7 L (22-28) mmol/L ABG O2 Saturation 98.4 H (95-98) % ABG Base Excess -4.8 L (-2.0-3.0) mmol/L ABG Hemoglobin 9.7 L (11.7-17.4) g/dL ABG Carboxyhemoglobin 1.6 H (0.5-1.5) % POC ABG HHb (Measured) 1.6 (0.0-5.0) % ABG Methemoglobin 1.2 (0.0-3.0) % Jann Test Na A-a O2 Difference 65.0 mm/Hg Respiratory Index 0.6 Hgb O2 Saturation 95.6 (95.0-98.0) % Vent Mode Bipap FiO2 30.0 % Inspiratory BiPAP 10 Expiratory BiPAP 5 Sodium 156 H (132-148) mmol/L Potassium 3.9 (3.6-5.2) mmol/L Chloride 115 H (98-107) mmol/L Carbon Dioxide 20 L (22-30) mmol/L Anion Gap 25 H (10-20) BUN 71 H (7-17) mg/dL Creatinine 2.5 H (0.7-1.2) mg/dL Est GFR ( Amer) 24 Est GFR (Non-Af Amer) 20 POC Glucose (mg/dL) 110 (65-110) mg/dL Random Glucose 67 (65-105) mg/dL Calcium 9.1 (8.6-10.4) mg/dl Phosphorus 4.4 (2.5-4.5) mg/dL Magnesium 2.3 (1.6-2.3) mg/dL Total Bilirubin 1.1 (0.2-1.3) mg/dL AST 15 (14-36) U/L ALT 22 (9-52) U/L Alkaline Phosphatase 78 (38-126) U/L Total Protein 6.4 (6.3-8.3) g/dL Albumin 3.6 (3.5-5.0) g/dL Globulin 2.8 (2.2-3.9) gm/dL Albumin/Globulin Ratio 1.3 (1.0-2.1) 04/17/18 04/17/18 04/16/18 Range/Units 05:22 05:16 23:52 WBC 4.9 (4.8-10.8) K/uL RBC 2.77 L (3.80-5.20) Mil/uL Hgb 8.2 L (11.0-16.0) g/dL Hct 24.2 L (34.0-47.0) % MCV 87.4 (81.0-99.0) fL MCH 29.4 (27.0-31.0) pg MCHC 33.7 (33.0-37.0) g/dL RDW 15.8 H (11.5-14.5) % Plt Count 203 (130-400) K/uL MPV 8.6 (7.2-11.7) fL Neut % (Auto) 64.9 (50.0-75.0) % Lymph % (Auto) 20.0 (20.0-40.0) % Aurora % (Auto) 13.3 H (0.0-10.0) % Eos % (Auto) 0.6 (0.0-4.0) % Baso % (Auto) 1.2 (0.0-2.0) % Neut # (Auto) 3.2 (1.8-7.0) K/uL Lymph # (Auto) 1.0 (1.0-4.3) K/uL Aurora # (Auto) 0.7 (0.0-0.8) K/uL Eos # (Auto) 0.0 (0.0-0.7) K/uL Baso # (Auto) 0.1 (0.0-0.2) K/uL Puncture Site pCO2 (35-45) mm/Hg pO2 (80-100) mm/Hg HCO3 (21-28) mmol/L ABG pH (7.35-7.45) ABG Total CO2 (22-28) mmol/L ABG O2 Saturation (95-98) % ABG Base Excess (-2.0-3.0) mmol/L ABG Hemoglobin (11.7-17.4) g/dL ABG Carboxyhemoglobin (0.5-1.5) % POC ABG HHb (Measured) (0.0-5.0) % ABG Methemoglobin (0.0-3.0) % Jann Test A-a O2 Difference mm/Hg Respiratory Index Hgb O2 Saturation (95.0-98.0) % Vent Mode FiO2 % Inspiratory BiPAP Expiratory BiPAP Sodium (132-148) mmol/L Potassium (3.6-5.2) mmol/L Chloride (98-107) mmol/L Carbon Dioxide (22-30) mmol/L Anion Gap (10-20) BUN (7-17) mg/dL Creatinine (0.7-1.2) mg/dL Est GFR ( Amer) Est GFR (Non-Af Amer) POC Glucose (mg/dL) 70 79 (65-110) mg/dL Random Glucose (65-105) mg/dL Calcium (8.6-10.4) mg/dl Phosphorus (2.5-4.5) mg/dL Magnesium (1.6-2.3) mg/dL Total Bilirubin (0.2-1.3) mg/dL AST (14-36) U/L ALT (9-52) U/L Alkaline Phosphatase (38-126) U/L Total Protein (6.3-8.3) g/dL Albumin (3.5-5.0) g/dL Globulin (2.2-3.9) gm/dL Albumin/Globulin Ratio (1.0-2.1) //18 Range/Units 17:50 WBC (4.8-10.8) K/uL RBC (3.80-5.20) Mil/uL Hgb (11.0-16.0) g/dL Hct (34.0-47.0) % MCV (81.0-99.0) fL MCH (27.0-31.0) pg MCHC (33.0-37.0) g/dL RDW (11.5-14.5) % Plt Count (130-400) K/uL MPV (7.2-11.7) fL Neut % (Auto) (50.0-75.0) % Lymph % (Auto) (20.0-40.0) % Aurora % (Auto) (0.0-10.0) % Eos % (Auto) (0.0-4.0) % Baso % (Auto) (0.0-2.0) % Neut # (Auto) (1.8-7.0) K/uL Lymph # (Auto) (1.0-4.3) K/uL Aurora # (Auto) (0.0-0.8) K/uL Eos # (Auto) (0.0-0.7) K/uL Baso # (Auto) (0.0-0.2) K/uL Puncture Site pCO2 (35-45) mm/Hg pO2 (80-100) mm/Hg HCO3 (21-28) mmol/L ABG pH (7.35-7.45) ABG Total CO2 (22-28) mmol/L ABG O2 Saturation (95-98) % ABG Base Excess (-2.0-3.0) mmol/L ABG Hemoglobin (11.7-17.4) g/dL ABG Carboxyhemoglobin (0.5-1.5) % POC ABG HHb (Measured) (0.0-5.0) % ABG Methemoglobin (0.0-3.0) % Jann Test A-a O2 Difference mm/Hg Respiratory Index Hgb O2 Saturation (95.0-98.0) % Vent Mode FiO2 % Inspiratory BiPAP Expiratory BiPAP Sodium (132-148) mmol/L Potassium (3.6-5.2) mmol/L Chloride (98-107) mmol/L Carbon Dioxide (22-30) mmol/L Anion Gap (10-20) BUN (7-17) mg/dL Creatinine (0.7-1.2) mg/dL Est GFR ( Amer) Est GFR (Non-Af Amer) POC Glucose (mg/dL) 81 (65-110) mg/dL Random Glucose (65-105) mg/dL Calcium (8.6-10.4) mg/dl Phosphorus (2.5-4.5) mg/dL Magnesium (1.6-2.3) mg/dL Total Bilirubin (0.2-1.3) mg/dL AST (14-36) U/L ALT (9-52) U/L Alkaline Phosphatase (38-126) U/L Total Protein (6.3-8.3) g/dL Albumin (3.5-5.0) g/dL Globulin (2.2-3.9) gm/dL Albumin/Globulin Ratio (1.0-2.1) Laboratory Results - last 24 hr 04/16/18 04/16/18 04/17/18 17:50 23:52 05:16 WBC RBC Hgb Hct MCV MCH MCHC RDW Plt Count MPV Neut % (Auto) Lymph % (Auto) Aurora % (Auto) Eos % (Auto) Baso % (Auto) Neut # (Auto) Lymph # (Auto) [place] # (Auto) Eos # (Auto) Baso # (Auto) Puncture Site pCO2 pO2 HCO3 ABG pH ABG Total CO2 ABG O2 Saturation ABG Base Excess ABG Hemoglobin ABG Carboxyhemoglobin POC ABG HHb (Measured) ABG Methemoglobin Jann Test A-a O2 Difference Respiratory Index Hgb O2 Saturation Vent Mode FiO2 Inspiratory BiPAP Expiratory BiPAP Sodium Potassium Chloride Carbon Dioxide Anion Gap BUN Creatinine Est GFR ( Amer) Est GFR (Non-Af Amer) POC Glucose (mg/dL) 81 79 70 Random Glucose Calcium Phosphorus Magnesium Total Bilirubin AST ALT Alkaline Phosphatase Total Protein Albumin Globulin Albumin/Globulin Ratio 04/17/18 04/17/18 04/17/18 05:22 05:22 05:38 WBC 4.9 RBC 2.77 L Hgb 8.2 L Hct 24.2 L MCV 87.4 MCH 29.4 MCHC 33.7 RDW 15.8 H Plt Count 203 MPV 8.6 Neut % (Auto) 64.9 Lymph % (Auto) 20.0 Aurora % (Auto) 13.3 H Eos % (Auto) 0.6 Baso % (Auto) 1.2 Neut # (Auto) 3.2 Lymph # (Auto) 1.0 [place] # (Auto) 0.7 Eos # (Auto) 0.0 Baso # (Auto) 0.1 Puncture Site Rb pCO2 38 pO2 101 H HCO3 21.2 ABG pH 7.34 L ABG Total CO2 21.7 L ABG O2 Saturation 98.4 H ABG Base Excess -4.8 L ABG Hemoglobin 9.7 L ABG Carboxyhemoglobin 1.6 H POC ABG HHb (Measured) 1.6 ABG Methemoglobin 1.2 Jann Test Na A-a O2 Difference 65.0 Respiratory Index 0.6 Hgb O2 Saturation 95.6 Vent Mode Bipap FiO2 30.0 Inspiratory BiPAP 10 Expiratory BiPAP 5 Sodium 156 H Potassium 3.9 Chloride 115 H Carbon Dioxide 20 L Anion Gap 25 H BUN 71 H Creatinine 2.5 H Est GFR ( Amer) 24 Est GFR (Non-Af Amer) 20 POC Glucose (mg/dL) Random Glucose 67 Calcium 9.1 Phosphorus 4.4 Magnesium 2.3 Total Bilirubin 1.1 AST 15 ALT 22 Alkaline Phosphatase 78 Total Protein 6.4 Albumin 3.6 Globulin 2.8 Albumin/Globulin Ratio 1.3 04/17/18 11:35 WBC RBC Hgb Hct MCV MCH MCHC RDW Plt Count MPV Neut % (Auto) Lymph % (Auto) Aurora % (Auto) Eos % (Auto) Baso % (Auto) Neut # (Auto) Lymph # (Auto) [place] # (Auto) Eos # (Auto) Baso # (Auto) Puncture Site pCO2 pO2 HCO3 ABG pH ABG Total CO2 ABG O2 Saturation ABG Base Excess ABG Hemoglobin ABG Carboxyhemoglobin POC ABG HHb (Measured) ABG Methemoglobin Jann Test A-a O2 Difference Respiratory Index Hgb O2 Saturation Vent Mode FiO2 Inspiratory BiPAP Expiratory BiPAP Sodium Potassium Chloride Carbon Dioxide Anion Gap BUN Creatinine Est GFR ( Amer) Est GFR (Non-Af Amer) POC Glucose (mg/dL) 110 Random Glucose Calcium Phosphorus Magnesium Total Bilirubin AST ALT Alkaline Phosphatase Total Protein Albumin Globulin Albumin/Globulin Ratio Fingerstick Blood Sugar Results: 110 Review of Systems - Review of Systems All systems: reviewed and no additional remarkable complaints except Critical Care Progress Note - Nutrition Nutrition: Nutrition Category Date Time Status NPO Diet [DIET] Diets 04/06/18 Breakfast Active Assessment/Plan (1) Anemia Current Visit: No Status: Acute (2) Renal failure Assessment and plan: Patient with a severe acute renal failure, hyperkalemia, severe anemia, severe leukocytosis. Currently being treated for possible multiple organism sepsis, polymicrobial cellulitis of the leg bilaterally. Associated lymphangitis. Acute renal insufficiency, needing renal replacement. Patient also has a severe any mattress at a blood transfusion. Very severe malnourishment noted. Continue the current treatment. Overall prognosis is guarded, speak to the patient's family again today, we will get a surgical opinion regarding these wound management Current Visit: No Status: Acute (3) Rhabdomyolysis Assessment and plan: Patient with severe sepsis and septic shock. Acute respiratory failure Acute renal failure Significant skin damage. Currently on IV antibiotic. Daily dressing. Wound management by the surgical team. Overall prognosis is very poor Currently having very poor nutrition. Start the patient on TPN. On antifungal and antibiotic. Will follow the patient Current Visit: No Status: Acute
--- NOTE | 2018-04-17 13:34 | CP.PCM.PN ---
Subjective - Date & Time of Evaluation Date of Evaluation: 04/17/18 Time of Evaluation: 13:33 - Subjective Subjective: Nephrology Consultation Note: Assessment: critical Anuric Acute Kidney Injury (N17.9) ? 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 Neck; supple no lymphadenopathy, no thyromegaly or bruit Lungs: normal respiratory rate/effort. Breath sounds bilateral equal and clear anteriorly Heart: Normal rate. s1s2 normal. No rub or gallop. Extremities: 1+ edema. No varicose veins. has wounds in lower extremities and dressed s/p debridement Neurological: Patient is awake but lethargic Skin: ecchymoses lower abdomen and dressings on b/l LE Abdomen: Abdomen is soft. Bowel sounds +. There is no abdominal tenderness Psych: unable MSK: no joint tenderness Access: permacath Objective - Vital Signs/Intake and Output Vital Signs (last 24 hours): Temp Pulse Resp BP Pulse Ox 98.0 F 107 H 18 108/58 L 98 04/17/18 12:00 04/17/18 13:00 04/17/18 13:00 04/17/18 12:38 04/17/18 13:00 Intake and Output: 04/17/18 04/17/18 06:59 18:59 Intake Total 620 340 Output Total 200 Balance 420 340 - Medications Medications: Current Medications Acetaminophen (Tylenol 650mg/20.3ml Solution Ud) 650 mg PO Q4 PRN PRN Reason: Fever Last Admin: 04/16/18 23:45 Dose: 650 mg Albuterol/Ipratropium (Duoneb 3 Mg/0.5 Mg (3 Ml) Ud) 3 ml INH RQ6 NOLAN Last Admin: 04/17/18 07:34 Dose: 3 ml Ascorbic Acid (Vitamin C 500 Mg Tab) 500 mg PO BID NOLAN Last Admin: 04/17/18 09:37 Dose: 500 mg Ergocalciferol (Drisdol 50,000 Intl Units Cap) 1 cap PO Q7D [facility] Last Admin: 04/11/18 10:27 Dose: 1 cap Heparin Sodium (Porcine) (Heparin) 5,000 units SC Q12 NOLAN Last Admin: 04/17/18 09:37 Dose: 5,000 units Fluconazole (Diflucan Iv 100 Mg/50 Ml Ns) 50 mls @ 100 mls/hr IVPB DAILY NOLAN PRN Reason: Protocol Last Admin: 04/17/18 09:57 Dose: 100 mls/hr Ampicillin 2 gm/ Sodium (Chloride) 100 mls @ 200 mls/hr IVPB Q6H NOLAN PRN Reason: Protocol Last Admin: 04/17/18 11:59 Dose: 200 mls/hr Meropenem 500 mg/ Sodium (Chloride) 100 mls @ 100 mls/hr IVPB Q12H NOLAN PRN Reason: Protocol Last Admin: 04/17/18 13:17 Dose: 100 mls/hr Dextrose (Dextrose 10% In Water) 500 mls @ 30 mls/hr IV .[id number] [facility] Last Admin: 04/17/18 09:37 Dose: 30 mls/hr Multivitamins/Vitamin C 10 ml/Insulin Human Regular 10 unit / Amino Acids 1, 010.1 mls @ 42 mls/hr IV .Q24H [facility] Fat Emulsion Intravenous (Intralipid 20%) 250 mls @ 42 mls/hr IV QOD@1800 [facility] Multivitamins/Vitamin C (Multi-Delyn Liquid) 5 ml PO DAILY [facility] Last Admin: 04/17/18 09:38 Dose: 5 ml Nystatin (Nystop Topical Powder) 1 applic TOP BID [facility] Last Admin: 04/17/18 09:39 Dose: 1 applic Pantoprazole Sodium (Protonix Susp) 40 mg PO DAILY [facility] Last Admin: 04/17/18 09:37 Dose: 40 mg Silver Sulfadiazine (Silvadene 1%) 0 ea TOP DAILY [facility] Last Admin: 04/17/18 09:58 Dose: 1 applic Silver Sulfadiazine (Silvadene 1%) 0 ea TOP Q12 [facility] Last Admin: 04/17/18 09:39 Dose: 1 applic Vitamin A (Vitamin A & D Oint Ud Foilpak) 1 ea TOP Q8 PRN PRN Reason: Dry Lips Last Admin: 04/17/18 05:01 Dose: 1 ea - Labs Labs: 04/17/18 05:22 04/17/18 05:22 PT 11.2 SECONDS (9.7-12.2) 04/05/18 06:15 INR 1.0 04/05/18 06:15 APTT 29 SECONDS (21-34) 04/05/18 06:15
[2018-04-17] MEDS: PPN #1 IV SCH (17:23)
[2018-04-17] MEDS ORDERED: Fat Emulsion 20% IV 250 ML IV SCH (18:00)
--- NOTE | 2018-04-17 22:29 | CP.PCM.PN ---
Subjective - Date & Time of Evaluation Date of Evaluation: 04/17/18 Time of Evaluation: 18:45 - Subjective Subjective: PT seen and examined, emaciated, on BIPAP, off ventilator, afebrile, on antibiotics, her creatinine is 2.5, she is weak, under nourished and chronically sick, she could not be transferred to [place] last week Objective - Vital Signs/Intake and Output Vital Signs (last 24 hours): Temp Pulse Resp BP Pulse Ox 97.4 F L 88 14 121/52 L 100 04/17/18 22:15 04/17/18 22:15 04/17/18 22:15 04/17/18 22:15 04/17/18 22:15 Intake and Output: 04/17/18 04/18/18 18:59 06:59 Intake Total 590 268 Balance 590 268 - Medications Medications: Current Medications Acetaminophen (Tylenol 650mg/20.3ml Solution Ud) 650 mg PO Q4 PRN PRN Reason: Fever Last Admin: 04/16/18 23:45 Dose: 650 mg Albuterol/Ipratropium (Duoneb 3 Mg/0.5 Mg (3 Ml) Ud) 3 ml INH RQ6 NOLAN Last Admin: 04/17/18 19:29 Dose: 3 ml Ascorbic Acid (Vitamin C 500 Mg Tab) 500 mg PO BID NOLAN Last Admin: 04/17/18 17:22 Dose: 500 mg Ergocalciferol (Drisdol 50,000 Intl Units Cap) 1 cap PO Q7D NOLAN Last Admin: 04/11/18 10:27 Dose: 1 cap Heparin Sodium (Porcine) (Heparin) 5,000 units SC Q12 NOLAN Last Admin: 04/17/18 21:20 Dose: 5,000 units Fluconazole (Diflucan Iv 100 Mg/50 Ml Ns) 50 mls @ 100 mls/hr IVPB DAILY NOLAN PRN Reason: Protocol Last Admin: 04/17/18 09:57 Dose: 100 mls/hr Ampicillin 2 gm/ Sodium (Chloride) 100 mls @ 200 mls/hr IVPB Q6H NOLAN PRN Reason: Protocol Last Admin: 04/17/18 17:21 Dose: 200 mls/hr Meropenem 500 mg/ Sodium (Chloride) 100 mls @ 100 mls/hr IVPB Q12H NOLAN PRN Reason: Protocol Last Admin: 04/17/18 13:17 Dose: 100 mls/hr Multivitamins/Vitamin C 10 ml/Insulin Human Regular 10 unit / Amino Acids 1, 010.1 mls @ 42 mls/hr IV .Q24H [facility] Last Admin: 04/17/18 17:23 Dose: 42 mls/hr Fat Emulsion Intravenous (Intralipid 20%) 250 mls @ 42 mls/hr IV QOD@1800 [facility] Last Admin: 04/17/18 17:32 Dose: 42 mls/hr Multivitamins/Vitamin C (Multi-Delyn Liquid) 5 ml PO DAILY [facility] Last Admin: 04/17/18 09:38 Dose: 5 ml Nystatin (Nystop Topical Powder) 1 applic TOP BID [facility] Last Admin: 04/17/18 18:00 Dose: 1 applic Pantoprazole Sodium (Protonix Susp) 40 mg PO DAILY [facility] Last Admin: 04/17/18 09:37 Dose: 40 mg Silver Sulfadiazine (Silvadene 1%) 0 ea TOP DAILY [facility] Last Admin: 04/17/18 09:58 Dose: 1 applic Silver Sulfadiazine (Silvadene 1%) 0 ea TOP Q12 [facility] Last Admin: 04/17/18 21:18 Dose: 1 applic Vitamin A (Vitamin A & D Oint Ud Foilpak) 1 ea TOP Q8 PRN PRN Reason: Dry Lips Last Admin: 04/17/18 21:18 Dose: 1 ea - Labs Labs: 04/17/18 05:22 04/17/18 05:22 PT 11.2 SECONDS (9.7-12.2) 04/05/18 06:15 INR 1.0 04/05/18 06:15 APTT 29 SECONDS (21-34) 04/05/18 06:15 - Constitutional Appears: No Acute Distress - Head Exam Head Exam: ATRAUMATIC, NORMAL INSPECTION, NORMOCEPHALIC - Eye Exam Eye Exam: EOMI, Normal appearance, PERRL Pupil Exam: NORMAL ACCOMODATION, PERRL - Respiratory Exam Respiratory Exam: Decreased Breath Sounds, Clear to Ausculation Bilateral, Rales , Rhonchi, NORMAL BREATHING PATTERN - Cardiovascular Exam Cardiovascular Exam: REGULAR RHYTHM, +S1, +S2. absent: Murmur - GI/Abdominal Exam GI & Abdominal Exam: Diminished Bowel Sounds Assessment and Plan (1) Acute respiratory failure Status: Acute (2) Acute tubular necrosis Status: Acute (3) Listeria septicemia Status: Acute (4) Leukocytosis Status: Acute
[2018-04-18] MEDS: AMPicillin 2 GM in Sodium Chloride 100 ML IVPB SCH ×4 (00:27→18:07)
[2018-04-18] MEDS: Albuterol-Ipratrop 3 mg / 0.5 (3 ml) UD INH SCH ×4 (01:48→19:45)
[2018-04-18] MEDS: Meropenem 500 MG in Sodium Chloride 0.9% 100 ML IVPB SCH ×2 (02:08→14:06)
[2018-04-18] MEDS ORDERED: Dextrose 50% SYRINGE Inj (50 ml) IV STA (05:47)
[2018-04-18 06:41] LABS: BASO # 0.1 K/uL (0.0-0.2); EOS # 0.1 K/uL (0.0-0.7); EOS % 1.1 % (0.0-4.0); HEMOGLOBIN 8.6 g/dL (11.0-16.0); LYMPH # 1.1 K/uL (1.0-4.3); MEAN CELL VOLUME 86.4 fL (81.0-99.0); MEAN CORPUSCULAR HEMOGLOBIN 29.5 pg (27.0-31.0); MEAN CORPUSCULAR HGB CONC 34.1 g/dL (33.0-37.0); MEAN PLATELET VOLUME 8.7 fL (7.2-11.7); MONO # 0.5 K/uL (0.0-0.8); MONO % 6.9 % (0.0-10.0); NEUT # 4.9 K/uL (1.8-7.0); RBC 2.92 Mil/uL (3.80-5.20); RED CELL DISTRIBUTION WIDTH 16.1 % (11.5-14.5); WHITE BLOOD COUNT 6.7 K/uL (4.8-10.8)
[2018-04-18 06:59] LABS: CALCIUM 8.4 mg/dl (8.6-10.4)
--- NOTE | 2018-04-18 07:04 | CON ---
DATE: 04/14/2018 We were consulted by the airworthiness safety inspector at [facility] Critical Care Unit. Please note that our evaluation of the patient consists only of information appearing in History of Present Illness on the chart, 04/14/2018 at 9:02 p.m. What appears in Past Patient History, as well as all information thereafter, was populated automatically by computer, and in no way reflects our evaluation. We were consulted regarding extensive, rapidly progressing wounds, primarily involving the patient's trunk and extremities. HISTORY OF PRESENT ILLNESS: The patient is a 52-year-old severely ill, emaciated female admitted to [facility] on 04/01/2018. She initially presented to [facility], having [place], and was soon thereafter transferred to [facility] The patient is intubated, septic, in renal failure, and on pressors. 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 Wound culture is positive for Staph aureus. Urine culture is positive for yeast. Hematocrit is 23%. Albumin is 2.3. The patient is MAYI-positive, and she also has an abnormal serum complement level. Of note, is an imaging study revealing brain atrophy and volume loss. There is likewise an enlarged uterus. CURRENT MEDICATIONS: Among others include albumin, albuterol, vitamin C, calcium, ergocalciferol, heparin, norepinephrine, vasopressin, Diflucan, ampicillin, meropenem, lorazepam, multivitamins, Protonix, nystatin topical, as well as other medications. PHYSICAL EXAMINATION: From a plastic surgical point of view is significant for wounds involving 75% to 80% of the patient's body surface area. Wounds are notable on the chest, right breast, abdomen, back, thighs as well as on each lower leg. There are ecchymotic areas, bullae, superficial and partial thickness areas, as well as escharotic and full thickness areas. The lower leg wounds were biopsied previously by general surgeons. All wounds are currently being dressed with Silvadene and Xeroform dressings. The rapidly progressing, widespread, extensive nature of the wounds, in light of the patient's sepsis and laboratory evidence of immune deficiency, as well as her severely comprised clinical condition, is consistent with toxic epidermal necrolysis syndrome. My recommendations as discussed with Dr. Alfonso Buckner, include the followin. Maximize oxygen carrying capacity to peripheral tissues by maintaining hematocrit above 32%. 2. Maximize nutritional support and maintain albumin level above 3.2. 3. Consider increasing vitamin C to 500 mg 4 times a day if renal function permits. 4. Consider vitamin A 10,000 international units twice a day if renal function permits. The vitamin A should be discontinued after 10 days' time, if not sooner. 5. Avoid shearing forces to help prevent further areas of skin breakdown. 6. Initiate an "anti-shear wound care protocol" to improve healing and prevent additional areas of skin sloughing. 7. Continue meticulous wound care with dressings as above. 8. Avoid tape on skin. 9. Clinitron airbed. 10.Continue investigation for initial inciting trigger (? Bactrim, ? phenytoin/ Dilantin, ? allopurinol). As stated in the Journal of Plastic and Reconstructive Surgery, May 2008, Volume 122, pages 154 to 160, anti-shear therapy as well as "transfer to a Burn Intensive Care Unit and initiation of critical care and wound protocols similar to those used for burn patients are recommended for patients with toxic epidermal necrolysis syndrome" (page 154, page 158, page 159). I accordingly strongly agree with your plan for prompt stabilization and expeditious transfer of the patient to the Burn Unit at the [facility] or a comparable facility. The patient resides in [place] and therefore, this choice for facility was made accordingly. In summary, the necessity as well as the alternatives to the proposed treatment plan and care were discussed in detail with Dr. Alfonso Buckner. No family members were available. We discussed the necessity as well as the alternatives to the plan, as well as the risks and complications, benefits, indications, and purpose. Georgi Nguyen., F.A.C.S., [facility]
--- NOTE | 2018-04-18 07:25 | PN ---
DATE: 04/14/2018 The patient is intubated, and they are trying to clean her. She has some swelling in her labia and she has positive urine culture and that will be discontinued and the skin, there is no new ecchymosis, but it looks and remains with lot of areas which were blistered, a bit whitish with areas of discoloration that is present from before, extensive bilateral leg skin lesions, and [place] has to be removed, but we have to watch her as she may get macerated and may need a [place] in a few days again. PHYSICAL EXAMINATION: VITAL SIGNS: T-max is 95.3, pulse 75, blood pressure 147/91, respirations are 18. HEAD: Atraumatic and normocephalic. NECK: Supple. LUNGS: Clear. HEART: S1 and S2 are regular. ABDOMEN: Soft. She also has umbilical hernia and has areas of ecchymosis on the chest wall as well as the abdomen and lower extremities. IMPRESSION: Urine culture came out positive for yeast species and I have already started her on Diflucan yesterday. We will continue that, and she is on ampicillin and they are waiting to see, because she was very macerated, if she has any malignancy and she got one dose of gentamicin yesterday and is on ampicillin, Merrem, and she was on Diflucan, which we will continue. I will be endorsing this patient with Dr. Berman, as I will be away till 04/21/2018, to follow for infectious disease followup. Festus Camarena MD
[2018-04-18] MEDS: Fluconazole IV 100mg/50 ml NS 50 ML IVPB SCH (09:28)
[2018-04-18] MEDS ORDERED: Dextrose 5%/0.9% NS 1,000 ML IV SCH (09:30)
[2018-04-18] MEDS: Multiple Vitamins Oral Solution PO SCH (10:27)
[2018-04-18] MEDS: Pantoprazole 40 mg Susp UD PO SCH (10:28)
[2018-04-18] MEDS: Ergocalciferol 50,000 Intl Units Cap PO SCH (11:27)
[2018-04-18] MEDS: Silver Sulfadiazine 1% Cream (400 gm) TOP SCH ×3 (11:30→22:00)
[2018-04-18] MEDS ORDERED: Dextrose 50% SYRINGE Inj (50 ml) IV ONE (12:15)
--- NOTE | 2018-04-18 13:00 | CP.CCUPN ---
Addendum entered and electronically signed by Mik Huynh DO 04/18/18 15:24: Received a call back from [facility]. Patient accepted on Dr. Novak. They will be calling back to coordinate transfer. Addendum entered and electronically signed by Mik Huynh DO 04/18/18 15:06: [facility] called again. Discussed with "Edita" from [facility] regarding transfer and the differential now including Toxic Epidermal Necrolysis Syndrome (TENS). Edita said to call back when we have a biopsy confirming that diagnoses. [facility] was also contacted. Message was left in Voicemail for them. Gen. Surgery agreed to do punch biopsy on patient. Original Note: <Mik Huynh - Last Filed: 04/18/18 12:55> CCU Subjective - Physician Review Events Since Last Encounter (Free Text): Patient seen and examined at bedside. Still Non-Verbal. Tolerating BiPAP, not tolerating Oral feeding. Subjective (Free Text): Patient extubated on 04/07. Patient reintubated on 04/12 in preparation for transfer Transfer cancelled on 04/13. Dr. De La Rosa from [facility] will no longer accept patient. CCU Objective - Vital Signs / Intake & Output Vital Signs (Last 4 hours): Vital Signs Pulse Resp Pulse Ox 04/18/18 11:17 81 04/18/18 09:00 105 H 20 100 Intake and Output (Last 8hrs): Intake & Output 04/17/18 04/18/18 04/18/18 22:59 06:59 14:59 Intake Total 656 720 226 Output Total 0 Balance 656 720 226 Weight 98 lb 3.2 oz Intake: Intake, IV Amount 556 720 226 Left Distal Port Internal 288 336 126 Jugular Left Medial Port Internal 100 300 100 Jugular Left Proximal Port 168 84 Internal Jugular Oral 100 Tube Feeding 0 0 0 Output: Drainage 0 HD fluid removal 0 Other: # Voids Urine, Voided 0 0 0 # Bowel Movements 0 0 0 - Physical Exam Head: Positive for: Atraumatic Mouth: Positive for: Moist Mucous Membranes Respiratory/Chest: Positive for: Good Air Exchange. Negative for: Respiratory Distress, Accessory Muscle Use Cardiovascular: Positive for: Normal S1, S2, Gallop Abdomen: Positive for: Distention, Other (abdomen reveals a 5 cm circular bulb no Bowel sounds in bulb). Negative for: Tenderness, Rebound, Guarding Upper Extremity: Positive for: Edema. Negative for: Cyanosis Lower Extremity: Positive for: Edema, Other (non-blanching ecchymotic lesions covering more than 25 percent of lower extremity and abdomen. S/P debridement with Dressing b/L. ) Neurological: Negative for: GCS=15 (11T) Psychiatric: Positive for: Alert, Oriented x 3 - Medications Active Medications: Active Medications Generic Name Dose Route Start Last Admin Trade Name Freq PRN Reason Stop Dose Admin Acetaminophen 650 mg 04/13/18 07:37 04/16/18 23:45 Tylenol 650mg/20.3ml Solution Ud PO 650 mg Q4 PRN Administration Fever Albuterol/Ipratropium 3 ml 04/15/18 08:00 04/18/18 07:52 Duoneb 3 Mg/0.5 Mg (3 Ml) Ud INH 3 ml RQ6 NOLAN Administration Ascorbic Acid 500 mg 04/02/18 10:00 04/18/18 10:28 Vitamin C 500 Mg Tab PO 500 mg BID NOLAN Administration Ergocalciferol 1 cap 04/04/18 10:45 04/18/18 11:27 Drisdol 50,000 Intl Units Cap PO 1 cap Q7D NOLAN Administration Heparin Sodium (Porcine) 5,000 units 04/13/18 22:00 04/18/18 10:28 Heparin SC 5,000 units Q12 NOLAN Administration Fluconazole 50 mls @ 100 mls/hr 04/13/18 16:30 04/18/18 09:28 Diflucan Iv 100 Mg/50 Ml Ns IVPB 100 mls/hr DAILY NOLAN Administration Protocol Ampicillin 2 gm/ Sodium 100 mls @ 200 mls/hr 04/13/18 18:00 04/18/18 11:34 Chloride IVPB 200 mls/hr Q6H NOLAN Administration Protocol Meropenem 500 mg/ Sodium 100 mls @ 100 mls/hr 04/15/18 02:00 04/18/18 02:08 Chloride IVPB 100 mls/hr Q12H NOLAN Administration Protocol Multivitamins/Vitamin C 10 ml/ 1,010.1 mls @ 42 mls/hr 04/17/18 18:00 17:23 Insulin Human Regular 10 unit IV 42 mls/hr / Amino Acids .Q24H NOLAN Administration Potassium Chloride 20 meq in 100 mls @ 50 mls/hr 04/18/18 09:00 04/18/18 10: 45 Potassium Chloride 20 Meq/100 Ml IVPB 04/18/18 14:59 50 mls/hr Q2H NOLAN Administration Dextrose/Sodium Chloride 1,000 mls @ 40 mls/hr 04/18/18 09:30 04/18/18 11:33 Dextrose 5%/0.9% Ns 1000 Ml IV 04/18/18 18:00 40 mls/hr .Q24H NOLAN Administration Multivitamins/Vitamin C 10 ml/ 1,011 mls @ 42 mls/hr 04/18/18 18:00 Chromium/Copper/Manganese/ IV 04/19/18 17:59 Seleni/Zn 1 ml/ Amino Acids .Q24H NOLAN Fat Emulsion Intravenous 250 mls @ 21 mls/hr 04/19/18 18:00 Intralipid 20% IV QOD@1800 NOLAN Multivitamins/Vitamin C 5 ml 04/03/18 10:15 04/18/18 10:27 Multi-Delyn Liquid PO 5 ml DAILY NOLAN Administration Nystatin 1 applic 04/14/18 18:00 04/18/18 10:31 Nystop Topical Powder TOP 1 applic BID NOLAN Administration Pantoprazole Sodium 40 mg 04/16/18 10:00 04/18/18 10:28 Protonix Susp PO 40 mg DAILY NOLAN Administration Silver Sulfadiazine 0 ea 04/08/18 10:00 04/18/18 11:30 Silvadene 1% TOP 1 applic DAILY NOLAN Administration Silver Sulfadiazine 0 ea 04/11/18 10:00 04/18/18 11:31 Silvadene 1% TOP 1 applic Q12 NOLAN Administration Vitamin A 1 ea 04/10/18 23:00 04/17/18 21:18 Vitamin A & D Oint Ud Foilpak TOP 1 ea Q8 PRN Administration Dry Lips - Patient Studies Lab Studies: Microbiology Studies 04/13/18 08:55 Blood Culture - Final Blood NO GROWTH AFTER 5 DAYS 04/13/18 08:28 Blood Culture - Final Blood NO GROWTH AFTER 5 DAYS Lab Studies 04/18/18 04/18/18 04/18/18 Range/Units 12:24 11:56 11:54 WBC (4.8-10.8) K/uL RBC (3.80-5.20) Mil/uL Hgb (11.0-16.0) g/dL Hct (34.0-47.0) % MCV (81.0-99.0) fL MCH (27.0-31.0) pg MCHC (33.0-37.0) g/dL RDW (11.5-14.5) % Plt Count (130-400) K/uL MPV (7.2-11.7) fL Neut % (Auto) (50.0-75.0) % Lymph % (Auto) (20.0-40.0) % [place] % (Auto) (0.0-10.0) % Eos % (Auto) (0.0-4.0) % Baso % (Auto) (0.0-2.0) % Neut # (Auto) (1.8-7.0) K/uL Lymph # (Auto) (1.0-4.3) K/uL [place] # (Auto) (0.0-0.8) K/uL Eos # (Auto) (0.0-0.7) K/uL Baso # (Auto) (0.0-0.2) K/uL Sodium (132-148) mmol/L Potassium (3.6-5.2) mmol/L Chloride (98-107) mmol/L Carbon Dioxide (22-30) mmol/L Anion Gap (10-20) BUN (7-17) mg/dL Creatinine (0.7-1.2) mg/dL Est GFR ( Amer) Est GFR (Non-Af Amer) POC Glucose (mg/dL) 140 H 36 L* 36 L* (65-110) mg/dL Random Glucose (65-105) mg/dL Calcium (8.6-10.4) mg/dl Phosphorus (2.5-4.5) mg/dL Magnesium (1.6-2.3) mg/dL Total Bilirubin (0.2-1.3) mg/dL AST (14-36) U/L ALT (9-52) U/L Alkaline Phosphatase (38-126) U/L Total Protein (6.3-8.3) g/dL Albumin (3.5-5.0) g/dL Globulin (2.2-3.9) gm/dL Albumin/Globulin Ratio (1.0-2.1) 04/18/18 04/18/18 04/18/18 Range/Units 06:42 06:36 06:35 WBC 6.7 (4.8-10.8) K/uL RBC 2.92 L (3.80-5.20) Mil/uL Hgb 8.6 L (11.0-16.0) g/dL Hct 25.2 L (34.0-47.0) % MCV 86.4 (81.0-99.0) fL MCH 29.5 (27.0-31.0) pg MCHC 34.1 (33.0-37.0) g/dL RDW 16.1 H (11.5-14.5) % Plt Count 212 (130-400) K/uL MPV 8.7 (7.2-11.7) fL Neut % (Auto) 74.0 (50.0-75.0) % Lymph % (Auto) 17.0 L (20.0-40.0) % [place] % (Auto) 6.9 (0.0-10.0) % Eos % (Auto) 1.1 (0.0-4.0) % Baso % (Auto) 1.0 (0.0-2.0) % Neut # (Auto) 4.9 (1.8-7.0) K/uL Lymph # (Auto) 1.1 (1.0-4.3) K/uL [place] # (Auto) 0.5 (0.0-0.8) K/uL Eos # (Auto) 0.1 (0.0-0.7) K/uL Baso # (Auto) 0.1 (0.0-0.2) K/uL Sodium 146 (132-148) mmol/L Potassium 2.9 L (3.6-5.2) mmol/L Chloride 103 (98-107) mmol/L Carbon Dioxide 28 (22-30) mmol/L Anion Gap 19 (10-20) BUN 38 H (7-17) mg/dL Creatinine 1.4 H (0.7-1.2) mg/dL Est GFR ( Amer) 48 Est GFR (Non-Af Amer) 39 POC Glucose (mg/dL) 119 H (65-110) mg/dL Random Glucose 41 L (65-105) mg/dL Calcium 8.4 L (8.6-10.4) mg/dl Phosphorus 3.4 (2.5-4.5) mg/dL Magnesium 1.9 (1.6-2.3) mg/dL Total Bilirubin 1.0 (0.2-1.3) mg/dL AST 36 D (14-36) U/L ALT 23 (9-52) U/L Alkaline Phosphatase 78 (38-126) U/L Total Protein 5.9 L (6.3-8.3) g/dL Albumin 3.0 L (3.5-5.0) g/dL Globulin 2.9 (2.2-3.9) gm/dL Albumin/Globulin Ratio 1.0 (1.0-2.1) 04/18/18 04/18/18 04/17/18 Range/Units 05:43 05:41 23:55 WBC (4.8-10.8) K/uL RBC (3.80-5.20) Mil/uL Hgb (11.0-16.0) g/dL Hct (34.0-47.0) % MCV (81.0-99.0) fL MCH (27.0-31.0) pg MCHC (33.0-37.0) g/dL RDW (11.5-14.5) % Plt Count (130-400) K/uL MPV (7.2-11.7) fL Neut % (Auto) (50.0-75.0) % Lymph % (Auto) (20.0-40.0) % [place] % (Auto) (0.0-10.0) % Eos % (Auto) (0.0-4.0) % Baso % (Auto) (0.0-2.0) % Neut # (Auto) (1.8-7.0) K/uL Lymph # (Auto) (1.0-4.3) K/uL [place] # (Auto) (0.0-0.8) K/uL Eos # (Auto) (0.0-0.7) K/uL Baso # (Auto) (0.0-0.2) K/uL Sodium (132-148) mmol/L Potassium (3.6-5.2) mmol/L Chloride (98-107) mmol/L Carbon Dioxide (22-30) mmol/L Anion Gap (10-20) BUN (7-17) mg/dL Creatinine (0.7-1.2) mg/dL Est GFR ( Amer) Est GFR (Non-Af Amer) POC Glucose (mg/dL) 56 L 52 L 75 (65-110) mg/dL Random Glucose (65-105) mg/dL Calcium (8.6-10.4) mg/dl Phosphorus (2.5-4.5) mg/dL Magnesium (1.6-2.3) mg/dL Total Bilirubin (0.2-1.3) mg/dL AST (14-36) U/L ALT (9-52) U/L Alkaline Phosphatase (38-126) U/L Total Protein (6.3-8.3) g/dL Albumin (3.5-5.0) g/dL Globulin (2.2-3.9) gm/dL Albumin/Globulin Ratio (1.0-2.1) 04/17/18 04/17/18 Range/Units 23:52 17:20 WBC (4.8-10.8) K/uL RBC (3.80-5.20) Mil/uL Hgb (11.0-16.0) g/dL Hct (34.0-47.0) % MCV (81.0-99.0) fL MCH (27.0-31.0) pg MCHC (33.0-37.0) g/dL RDW (11.5-14.5) % Plt Count (130-400) K/uL MPV (7.2-11.7) fL Neut % (Auto) (50.0-75.0) % Lymph % (Auto) (20.0-40.0) % [place] % (Auto) (0.0-10.0) % Eos % (Auto) (0.0-4.0) % Baso % (Auto) (0.0-2.0) % Neut # (Auto) (1.8-7.0) K/uL Lymph # (Auto) (1.0-4.3) K/uL [place] # (Auto) (0.0-0.8) K/uL Eos # (Auto) (0.0-0.7) K/uL Baso # (Auto) (0.0-0.2) K/uL Sodium (132-148) mmol/L Potassium (3.6-5.2) mmol/L Chloride (98-107) mmol/L Carbon Dioxide (22-30) mmol/L Anion Gap (10-20) BUN (7-17) mg/dL Creatinine (0.7-1.2) mg/dL Est GFR ( Amer) Est GFR (Non-Af Amer) POC Glucose (mg/dL) 66 93 (65-110) mg/dL Random Glucose (65-105) mg/dL Calcium (8.6-10.4) mg/dl Phosphorus (2.5-4.5) mg/dL Magnesium (1.6-2.3) mg/dL Total Bilirubin (0.2-1.3) mg/dL AST (14-36) U/L ALT (9-52) U/L Alkaline Phosphatase (38-126) U/L Total Protein (6.3-8.3) g/dL Albumin (3.5-5.0) g/dL Globulin (2.2-3.9) gm/dL Albumin/Globulin Ratio (1.0-2.1) Laboratory Results - last 24 hr 04/17/18 04/17/18 04/17/18 17:20 23:52 23:55 WBC RBC Hgb Hct MCV MCH MCHC RDW Plt Count MPV Neut % (Auto) Lymph % (Auto) [place] % (Auto) Eos % (Auto) Baso % (Auto) Neut # (Auto) Lymph # (Auto) [place] # (Auto) Eos # (Auto) Baso # (Auto) Sodium Potassium Chloride Carbon Dioxide Anion Gap BUN Creatinine Est GFR ( Amer) Est GFR (Non-Af Amer) POC Glucose (mg/dL) 93 66 75 Random Glucose Calcium Phosphorus Magnesium Total Bilirubin AST ALT Alkaline Phosphatase Total Protein Albumin Globulin Albumin/Globulin Ratio 04/18/18 04/18/18 04/18/18 05:41 05:43 06:35 WBC 6.7 RBC 2.92 L Hgb 8.6 L Hct 25.2 L MCV 86.4 MCH 29.5 MCHC 34.1 RDW 16.1 H Plt Count 212 MPV 8.7 Neut % (Auto) 74.0 Lymph % (Auto) 17.0 L [place] % (Auto) 6.9 Eos % (Auto) 1.1 Baso % (Auto) 1.0 Neut # (Auto) 4.9 Lymph # (Auto) 1.1 [place] # (Auto) 0.5 Eos # (Auto) 0.1 Baso # (Auto) 0.1 Sodium Potassium Chloride Carbon Dioxide Anion Gap BUN Creatinine Est GFR ( Amer) Est GFR (Non-Af Amer) POC Glucose (mg/dL) 52 L 56 L Random Glucose Calcium Phosphorus Magnesium Total Bilirubin AST ALT Alkaline Phosphatase Total Protein Albumin Globulin Albumin/Globulin Ratio 04/18/18 04/18/18 04/18/18 06:36 06:42 11:54 WBC RBC Hgb Hct MCV MCH MCHC RDW Plt Count MPV Neut % (Auto) Lymph % (Auto) [place] % (Auto) Eos % (Auto) Baso % (Auto) Neut # (Auto) Lymph # (Auto) [place] # (Auto) Eos # (Auto) Baso # (Auto) Sodium 146 Potassium 2.9 L Chloride 103 Carbon Dioxide 28 Anion Gap 19 BUN 38 H Creatinine 1.4 H Est GFR ( Amer) 48 Est GFR (Non-Af Amer) 39 POC Glucose (mg/dL) 119 H 36 L* Random Glucose 41 L Calcium 8.4 L Phosphorus 3.4 Magnesium 1.9 Total Bilirubin 1.0 AST 36 D ALT 23 Alkaline Phosphatase 78 Total Protein 5.9 L Albumin 3.0 L Globulin 2.9 Albumin/Globulin Ratio 1.0 04/18/18 04/18/18 11:56 12:24 WBC RBC Hgb Hct MCV MCH MCHC RDW Plt Count MPV Neut % (Auto) Lymph % (Auto) [place] % (Auto) Eos % (Auto) Baso % (Auto) Neut # (Auto) Lymph # (Auto) [place] # (Auto) Eos # (Auto) Baso # (Auto) Sodium Potassium Chloride Carbon Dioxide Anion Gap BUN Creatinine Est GFR ( Amer) Est GFR (Non-Af Amer) POC Glucose (mg/dL) 36 L* 140 H Random Glucose Calcium Phosphorus Magnesium Total Bilirubin AST ALT Alkaline Phosphatase Total Protein Albumin Globulin Albumin/Globulin Ratio Fingerstick Blood Sugar Results: 119 Review of Systems - Review of Systems Systems not reviewed;Unavailable: Acuity of Condition (Patient is finding difficulty getting any words out.) Critical Care Progress Note - Nutrition Nutrition: Nutrition Category Date Time Status NPO Diet [DIET] Diets 04/06/18 Breakfast Active Assessment/Plan - Assessment and Plan (Free Text) Assessment: 52 year old female with Unspecified medical history who presented to [facility] ICU from [facility] Emergency Room. [place]. On Admission patient was found to have leukocytosis and significant skin excoriations, foul smelling ulcer in the right leg, multiple ecchymosis in the abdomen/groin area/lower extremity, necrotic tissue on lower extremity and bullae. Patiently found to be severely Anemic and was transfused a total of 5 PRBC's. Patient is edematous in the upper and lower extremities b/ l. 04/04: Transfused 2 Units of PRBC's 04/06: Lower extremity Wound Debridement, Began Discussion of Transfer to Burn Unit. 04/07: Extubated. 04/11: Patient accepted to to [facility] under Dr. Neal De La Rosa. Demographics Sheet faxed. Resident at [facility] asked for CD's of imaging, surgery reports, all cultures, hospital course, and nurse report. Patient to be transferred tomorrow morning. 04/12: Reintubated for airway protection in preparation for transfer 04/13: Levophed increased and vasopressin added on in AM due to hypotension 04/13: Transfer to [facility] cancelled. Dr. Neal De La Rosa stated that patient is too critical to be transferred and should go to the nearest burn unit for treatment. 04/14: [facility] called regarding transfer. Stated they wouldn't accept patient because she is not burned nor does she have confirmed Anthony Zachariah syndrome by Biopsy. 04/15: Extubated. Plan: Neuro: GCS: 11T Sedation: None Lethargic today Cardio: ECHO (04/02): Shows Normal EF (55%) A: Hypotension Pressors: None 1 L Fluid Bolus Given today 1 Unit of PRBC ordered today. Pulm: CXR (04/04): Endotracheal and NG tube in place. Mild venous congestion. Bilateral hilar prominence. Tortuous ectatic aorta. Biapical pleural thickening with upper lobe granulomatous changes. CXR (04/10): New Right infrahilar atelectasis. Otherwise no change. CXR (04/11): Possible very small bilateral pleural effusion. ABG (04/04): pH-7.56, C02-24, 02-188, HCO3-24.6 ABG (04/05): pH-7.56, C02 - 26, 02-157, HCO3-23.9 ABG ( 04/07): pH-7.52, C02 - 27, 02 - 187, HCO3-24.6 Extubated on 04/07. Extubated on 04/15 and tolerating BiPAP. GI A: Elevated LFT's (Resolved) Abd/Pelvis CT (04/02/18): Prominent gallbladder distention with cholelithiasis. Clinically correlate for potential cholecystitis. Possible ileus or early distal small bowel obstruction. Potential segmental colitis in various large-bowel segments though this is limited in diagnostic power due to collapse of the majority of the large bowel. Mild bilateral hydroureteronephrosis potentially on the basis of enlarged myomatous uterus. Potential infectious or inflammatory process affecting the uterus. Myomatous uterine changes also noted. Anasarca and trace ascites. Hepatitis Panel - NEGATIVE OBGYN A: Uterine Mass TV Ultrasound PENDING for when patients are more stable. Renal A: LULA (Improving), Hypocalcemia, Hyperphosphetemia, Hyponatremia Complement Studies per ID - NEGATIVE [place] -137 Lambda-94, Lupus, MicroAlbumin w/ Cr - Elevated Total Protein - Elevated , Serum Immunifixation Detected. Renal US (04/04): B/L mild hyronephrosis. small non-obstructing renal calculi in Right Kidney phos binders, nephrovite, vit D, iron supplements per Nephro urology consult for b/l hydronephrosis per Nephro, Recs appreciated. Hemodialysis MWF, Dialysis Today. via permacath (placed on 04/06) Monitor Electrolytes Heme/Onc A: Iron Def. Anemia s/p 5 Units of PRBCs, thromboycytopenia (Resolved). 2 Units of PRBC's transfused on 04/04/18. Hematology/Onc Consulted (Dr. Ospina), Recs Appreciated Myeloproliferative Disorder RUle OUT. BCR/ABL1 GENE PCR - Not Detected, MACY - Negative? , ASO- Negative HgB Stable CA 125 - 90.6 , CA19-9 - 286 , CEA - 5.7. All ordered tumor markers elevated. DIC Workup to rule out Purpura Fulminans -Fibrinogen (WNL) Fibrin Split Products - Order Cancelled in AM (Unknown who) , Pt/PTT, Retic Count (WNL), Haptoglobin (Elevated), D- Dimer (Elevated, likely due to Malignancy) Haptoglobin - 346.1 (Elevated) HIT - NEGATIVE EPO per Renal. Ferrous Gluconated 324mg PO TID Anti Parietal Cell Ab- Elevated 1 Unit of PRBC's Ordered. Rheumatology MAYI 6 - POSITIVE, MAYI Titer - 1:40, MYAI Pattern - Speckled Rh Factor - NEGATIVE ID A: Leukocytosis (Resolved), Purpura Fulminans, Listeria Bacteremia, ID Consulted (Dr. Camarena, Recs appreciated) Lower Ext CT (04/02): Anasarca type pattern is favored over fasciitis of the bilateral lower extremities diffusely and is favored over fasciitis the fasciitis is still not excluded, a CT diagnosis is difficult to make without intravenous contrast. Necrotizing fasciitis is not identified however. Further clinical correlation is recommended. Blood Cultures (04/01 [place] ED): POSITIVE for Listeria Monocytogenes Blood Cultures (04/02): NEGATIVE Blood Culture (04/13): NEGATIVE Wound Cultures (04/02): Left and Right leg NEGATIVE (Prelim) ESR (04/03): WNL Hepatitis Panel - NEGATIVE Anitbiotics: Cont. Meropenem, Ampicillin. and Flucanazol. General Surgery/Vascular Surgery Consulted, Recs Appreciated. Stool for Vibrio Cholera per ID Wound Cultures - POSITIVE for Coagulase Negative Staph - Likely contamination. DIC Workup showed Elevated Haptoglobin and elevated D-dimer. UA (04/11), positive for Leuk Es and WBCs. Urine Culture (04/12) - POSITIVE for YEAST. Urine Culture (04/13) - POSITIVE for YEAST. 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 Will discuss will family transfer to Burn Unit for better management of extensive skin wounds. Transfer to [facility] cancelled. [facility] will not accept patient. Will try [facility] Again Silvadene w/ Xeroform for Diffuse Wounds. Debridement Speciment - "Fragments of Fibroconnective Tissue with Acute and chronic inflammation, abscess formation, granulation tissue, bacaterial colonies and reactive tissue) Anti-Shear Wound Care Protocol. No tape [place] Airbed Maintain Albumin > 3.2 Vitamin C BID Changed to QID per Vitamin A 10,000 IU recommended by plastic surgery but not in formula Plastic Surgery Consulted, Recs Appreciated Endo A: Vitamin D Def. 50,000 IU Q7D MSK A: Deconditioning PT/OT Proph Protonix IV Daily Heparin Q12 Dispo: Will need to attempt to try to get patient to a burn unit as soon as possible. <Yomi Mckeon - Last Filed: 04/18/18 17:36> CCU Objective - Vital Signs / Intake & Output Vital Signs (Last 4 hours): Vital Signs Pulse Resp BP Pulse Ox 04/18/18 15:55 113 H 04/18/18 15:00 112 H 20 98 04/18/18 14:31 114 H 20 86/35 L 97 04/18/18 14:00 109 H 20 99 04/18/18 13:48 107 H 04/18/18 13:32 107 H 21 89/28 L 97 Intake and Output (Last 8hrs): Intake & Output 04/18/18 04/18/18 04/18/18 06:59 14:59 22:59 Intake Total 720 436 42 Output Total 0 Balance 720 436 42 Weight 98 lb 3.2 oz Intake: Intake, IV Amount 720 436 42 Left Distal Port Internal 336 336 42 Jugular Left Medial Port Internal 300 100 Jugular Left Proximal Port 84 Internal Jugular Tube Feeding 0 0 Output: Drainage 0 HD fluid removal 0 Other: # Voids Urine, Voided 0 0 # Bowel Movements 0 1 - Medications Active Medications: Active Medications Generic Name Dose Route Start Last Admin Trade Name Freq PRN Reason Stop Dose Admin Acetaminophen 650 mg 04/13/18 07:37 04/16/18 23:45 Tylenol 650mg/20.3ml Solution Ud PO 650 mg Q4 PRN Administration Fever Albumin Human 25 gm 04/19/18 07:00 Albumin Human 25% (12.5 Gm/50 Ml) IV MWF PRN Other Albuterol/Ipratropium 3 ml 04/15/18 08:00 04/18/18 13:54 Duoneb 3 Mg/0.5 Mg (3 Ml) Ud INH 3 ml RQ6 NOLAN Administration Ascorbic Acid 500 mg 04/18/18 14:00 Vitamin C 500 Mg Tab PO QID NOLAN Ergocalciferol 1 cap 04/04/18 10:45 04/18/18 11:27 Drisdol 50,000 Intl Units Cap PO 1 cap Q7D NOLAN Administration Heparin Sodium (Porcine) 5,000 units 04/13/18 22:00 04/18/18 10:28 Heparin SC 5,000 units Q12 NOLAN Administration Ampicillin 2 gm/ Sodium 100 mls @ 200 mls/hr 04/13/18 18:00 04/18/18 11:34 Chloride IVPB 200 mls/hr Q6H NOLAN Administration Protocol Meropenem 500 mg/ Sodium 100 mls @ 100 mls/hr 04/15/18 02:00 04/18/18 02:08 Chloride IVPB 100 mls/hr Q12H NOLAN Administration Protocol Multivitamins/Vitamin C 10 ml/ 1,010.1 mls @ 42 mls/hr 04/17/18 18:00 17:23 Insulin Human Regular 10 unit IV 42 mls/hr / Amino Acids .Q24H NOLAN Administration Dextrose/Sodium Chloride 1,000 mls @ 40 mls/hr 04/18/18 09:30 04/18/18 11:33 Dextrose 5%/0.9% Ns 1000 Ml IV 04/18/18 18:00 40 mls/hr .Q24H NOLAN Administration Multivitamins/Vitamin C 10 ml/ 1,011 mls @ 42 mls/hr 04/18/18 18:00 Chromium/Copper/Manganese/ IV 04/19/18 17:59 Seleni/Zn 1 ml/ Amino Acids .Q24H NOLAN Fat Emulsion Intravenous 250 mls @ 21 mls/hr 04/19/18 18:00 Intralipid 20% IV QOD@1800 [facility] Multivitamins/Vitamin C 5 ml 04/03/18 10:15 04/18/18 10:27 Multi-Delyn Liquid PO 5 ml DAILY NOLAN Administration Nystatin 1 applic 04/14/18 18:00 04/18/18 10:31 Nystop Topical Powder TOP 1 applic BID NOLAN Administration Pantoprazole Sodium 40 mg 04/16/18 10:00 04/18/18 10:28 Protonix Susp PO 40 mg DAILY NOLAN Administration Silver Sulfadiazine 0 ea 04/08/18 10:00 04/18/18 11:30 Silvadene 1% TOP 1 applic DAILY NOLAN Administration Silver Sulfadiazine 0 ea 04/11/18 10:00 04/18/18 11:31 Silvadene 1% TOP 1 applic Q12 NOLAN Administration Vitamin A 1 ea 04/10/18 23:00 04/17/18 21:18 Vitamin A & D Oint Ud Foilpak TOP 1 ea Q8 PRN Administration Dry Lips - Patient Studies Lab Studies: Microbiology Studies 04/13/18 08:55 Blood Culture - Final Blood NO GROWTH AFTER 5 DAYS 04/13/18 08:28 Blood Culture - Final Blood NO GROWTH AFTER 5 DAYS Lab Studies 04/18/18 04/18/18 04/18/18 Range/Units 12:24 11:56 11:54 WBC (4.8-10.8) K/uL RBC (3.80-5.20) Mil/uL Hgb (11.0-16.0) g/dL Hct (34.0-47.0) % MCV (81.0-99.0) fL MCH (27.0-31.0) pg MCHC (33.0-37.0) g/dL RDW (11.5-14.5) % Plt Count (130-400) K/uL MPV (7.2-11.7) fL Neut % (Auto) (50.0-75.0) % Lymph % (Auto) (20.0-40.0) % [place] % (Auto) (0.0-10.0) % Eos % (Auto) (0.0-4.0) % Baso % (Auto) (0.0-2.0) % Neut # (Auto) (1.8-7.0) K/uL Lymph # (Auto) (1.0-4.3) K/uL [place] # (Auto) (0.0-0.8) K/uL Eos # (Auto) (0.0-0.7) K/uL Baso # (Auto) (0.0-0.2) K/uL Sodium (132-148) mmol/L Potassium (3.6-5.2) mmol/L Chloride (98-107) mmol/L Carbon Dioxide (22-30) mmol/L Anion Gap (10-20) BUN (7-17) mg/dL Creatinine (0.7-1.2) mg/dL Est GFR ( Amer) Est GFR (Non-Af Amer) POC Glucose (mg/dL) 140 H 36 L* 36 L* (65-110) mg/dL Random Glucose (65-105) mg/dL Calcium (8.6-10.4) mg/dl Phosphorus (2.5-4.5) mg/dL Magnesium (1.6-2.3) mg/dL Total Bilirubin (0.2-1.3) mg/dL AST (14-36) U/L ALT (9-52) U/L Alkaline Phosphatase (38-126) U/L Total Protein (6.3-8.3) g/dL Albumin (3.5-5.0) g/dL Globulin (2.2-3.9) gm/dL Albumin/Globulin Ratio (1.0-2.1) 04/18/18 04/18/18 04/18/18 Range/Units 06:42 06:36 06:35 WBC 6.7 (4.8-10.8) K/uL RBC 2.92 L (3.80-5.20) Mil/uL Hgb 8.6 L (11.0-16.0) g/dL Hct 25.2 L (34.0-47.0) % MCV 86.4 (81.0-99.0) fL MCH 29.5 (27.0-31.0) pg MCHC 34.1 (33.0-37.0) g/dL RDW 16.1 H (11.5-14.5) % Plt Count 212 (130-400) K/uL MPV 8.7 (7.2-11.7) fL Neut % (Auto) 74.0 (50.0-75.0) % Lymph % (Auto) 17.0 L (20.0-40.0) % [place] % (Auto) 6.9 (0.0-10.0) % Eos % (Auto) 1.1 (0.0-4.0) % Baso % (Auto) 1.0 (0.0-2.0) % Neut # (Auto) 4.9 (1.8-7.0) K/uL Lymph # (Auto) 1.1 (1.0-4.3) K/uL [place] # (Auto) 0.5 (0.0-0.8) K/uL Eos # (Auto) 0.1 (0.0-0.7) K/uL Baso # (Auto) 0.1 (0.0-0.2) K/uL Sodium 146 (132-148) mmol/L Potassium 2.9 L (3.6-5.2) mmol/L Chloride 103 (98-107) mmol/L Carbon Dioxide 28 (22-30) mmol/L Anion Gap 19 (10-20) BUN 38 H (7-17) mg/dL Creatinine 1.4 H (0.7-1.2) mg/dL Est GFR ( Amer) 48 Est GFR (Non-Af Amer) 39 POC Glucose (mg/dL) 119 H (65-110) mg/dL Random Glucose 41 L (65-105) mg/dL Calcium 8.4 L (8.6-10.4) mg/dl Phosphorus 3.4 (2.5-4.5) mg/dL Magnesium 1.9 (1.6-2.3) mg/dL Total Bilirubin 1.0 (0.2-1.3) mg/dL AST 36 D (14-36) U/L ALT 23 (9-52) U/L Alkaline Phosphatase 78 (38-126) U/L Total Protein 5.9 L (6.3-8.3) g/dL Albumin 3.0 L (3.5-5.0) g/dL Globulin 2.9 (2.2-3.9) gm/dL Albumin/Globulin Ratio 1.0 (1.0-2.1) 04/18/18 04/18/18 04/17/18 Range/Units 05:43 05:41 23:55 WBC (4.8-10.8) K/uL RBC (3.80-5.20) Mil/uL Hgb (11.0-16.0) g/dL Hct (34.0-47.0) % MCV (81.0-99.0) fL MCH (27.0-31.0) pg MCHC (33.0-37.0) g/dL RDW (11.5-14.5) % Plt Count (130-400) K/uL MPV (7.2-11.7) fL Neut % (Auto) (50.0-75.0) % Lymph % (Auto) (20.0-40.0) % [place] % (Auto) (0.0-10.0) % Eos % (Auto) (0.0-4.0) % Baso % (Auto) (0.0-2.0) % Neut # (Auto) (1.8-7.0) K/uL Lymph # (Auto) (1.0-4.3) K/uL [place] # (Auto) (0.0-0.8) K/uL Eos # (Auto) (0.0-0.7) K/uL Baso # (Auto) (0.0-0.2) K/uL Sodium (132-148) mmol/L Potassium (3.6-5.2) mmol/L Chloride (98-107) mmol/L Carbon Dioxide (22-30) mmol/L Anion Gap (10-20) BUN (7-17) mg/dL Creatinine (0.7-1.2) mg/dL Est GFR ( Amer) Est GFR (Non-Af Amer) POC Glucose (mg/dL) 56 L 52 L 75 (65-110) mg/dL Random Glucose (65-105) mg/dL Calcium (8.6-10.4) mg/dl Phosphorus (2.5-4.5) mg/dL Magnesium (1.6-2.3) mg/dL Total Bilirubin (0.2-1.3) mg/dL AST (14-36) U/L ALT (9-52) U/L Alkaline Phosphatase (38-126) U/L Total Protein (6.3-8.3) g/dL Albumin (3.5-5.0) g/dL Globulin (2.2-3.9) gm/dL Albumin/Globulin Ratio (1.0-2.1) 04/17/18 Range/Units 23:52 WBC (4.8-10.8) K/uL RBC (3.80-5.20) Mil/uL Hgb (11.0-16.0) g/dL Hct (34.0-47.0) % MCV (81.0-99.0) fL MCH (27.0-31.0) pg MCHC (33.0-37.0) g/dL RDW (11.5-14.5) % Plt Count (130-400) K/uL MPV (7.2-11.7) fL Neut % (Auto) (50.0-75.0) % Lymph % (Auto) (20.0-40.0) % [place] % (Auto) (0.0-10.0) % Eos % (Auto) (0.0-4.0) % Baso % (Auto) (0.0-2.0) % Neut # (Auto) (1.8-7.0) K/uL Lymph # (Auto) (1.0-4.3) K/uL [place] # (Auto) (0.0-0.8) K/uL Eos # (Auto) (0.0-0.7) K/uL Baso # (Auto) (0.0-0.2) K/uL Sodium (132-148) mmol/L Potassium (3.6-5.2) mmol/L Chloride (98-107) mmol/L Carbon Dioxide (22-30) mmol/L Anion Gap (10-20) BUN (7-17) mg/dL Creatinine (0.7-1.2) mg/dL Est GFR ( Amer) Est GFR (Non-Af Amer) POC Glucose (mg/dL) 66 (65-110) mg/dL Random Glucose (65-105) mg/dL Calcium (8.6-10.4) mg/dl Phosphorus (2.5-4.5) mg/dL Magnesium (1.6-2.3) mg/dL Total Bilirubin (0.2-1.3) mg/dL AST (14-36) U/L ALT (9-52) U/L Alkaline Phosphatase (38-126) U/L Total Protein (6.3-8.3) g/dL Albumin (3.5-5.0) g/dL Globulin (2.2-3.9) gm/dL Albumin/Globulin Ratio (1.0-2.1) Laboratory Results - last 24 hr 04/17/18 04/17/18 04/18/18 23:52 23:55 05:41 WBC RBC Hgb Hct MCV MCH MCHC RDW Plt Count MPV Neut % (Auto) Lymph % (Auto) [place] % (Auto) Eos % (Auto) Baso % (Auto) Neut # (Auto) Lymph # (Auto) [place] # (Auto) Eos # (Auto) Baso # (Auto) Sodium Potassium Chloride Carbon Dioxide Anion Gap BUN Creatinine Est GFR ( Amer) Est GFR (Non-Af Amer) POC Glucose (mg/dL) 66 75 52 L Random Glucose Calcium Phosphorus Magnesium Total Bilirubin AST ALT Alkaline Phosphatase Total Protein Albumin Globulin Albumin/Globulin Ratio 04/18/18 04/18/18 04/18/18 05:43 06:35 06:36 WBC 6.7 RBC 2.92 L Hgb 8.6 L Hct 25.2 L MCV 86.4 MCH 29.5 MCHC 34.1 RDW 16.1 H Plt Count 212 MPV 8.7 Neut % (Auto) 74.0 Lymph % (Auto) 17.0 L [place] % (Auto) 6.9 Eos % (Auto) 1.1 Baso % (Auto) 1.0 Neut # (Auto) 4.9 Lymph # (Auto) 1.1 [place] # (Auto) 0.5 Eos # (Auto) 0.1 Baso # (Auto) 0.1 Sodium 146 Potassium 2.9 L Chloride 103 Carbon Dioxide 28 Anion Gap 19 BUN 38 H Creatinine 1.4 H Est GFR ( Amer) 48 Est GFR (Non-Af Amer) 39 POC Glucose (mg/dL) 56 L Random Glucose 41 L Calcium 8.4 L Phosphorus 3.4 Magnesium 1.9 Total Bilirubin 1.0 AST 36 D ALT 23 Alkaline Phosphatase 78 Total Protein 5.9 L Albumin 3.0 L Globulin 2.9 Albumin/Globulin Ratio 1.0 04/18/18 04/18/18 04/18/18 06:42 11:54 11:56 WBC RBC Hgb Hct MCV MCH MCHC RDW Plt Count MPV Neut % (Auto) Lymph % (Auto) [place] % (Auto) Eos % (Auto) Baso % (Auto) Neut # (Auto) Lymph # (Auto) [place] # (Auto) Eos # (Auto) Baso # (Auto) Sodium Potassium Chloride Carbon Dioxide Anion Gap BUN Creatinine Est GFR ( Amer) Est GFR (Non-Af Amer) POC Glucose (mg/dL) 119 H 36 L* 36 L* Random Glucose Calcium Phosphorus Magnesium Total Bilirubin AST ALT Alkaline Phosphatase Total Protein Albumin Globulin Albumin/Globulin Ratio 04/18/18 12:24 WBC RBC Hgb Hct MCV MCH MCHC RDW Plt Count MPV Neut % (Auto) Lymph % (Auto) [place] % (Auto) Eos % (Auto) Baso % (Auto) Neut # (Auto) Lymph # (Auto) [place] # (Auto) Eos # (Auto) Baso # (Auto) Sodium Potassium Chloride Carbon Dioxide Anion Gap BUN Creatinine Est GFR ( Amer) Est GFR (Non-Af Amer) POC Glucose (mg/dL) 140 H Random Glucose Calcium Phosphorus Magnesium Total Bilirubin AST ALT Alkaline Phosphatase Total Protein Albumin Globulin Albumin/Globulin Ratio Critical Care Progress Note - Nutrition Nutrition: Nutrition Category Date Time Status NPO Diet [DIET] Diets 04/06/18 Breakfast Active Attending/Attestation - Attestation I have personally seen and examined this patient.: Yes I have fully participated in the care of the patient.: Yes I have reviewed all pertinent clinical information: Yes Notes (Text): 04/18/18 17:31 Patient seen and examined in the intensive care unit. 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
--- NOTE | 2018-04-18 16:21 | CP.PCM.PN ---
Subjective - Date & Time of Evaluation Date of Evaluation: 04/18/18 Time of Evaluation: 15:00 - Subjective Subjective: Surgery- Dr. Nguyen (Covering for Dr. Moore) patient seen and examined at bedside. Pt on BiPAP. surgery was called for re- evaluation of patient and skin biopsy of lower extremities. Consent obtained from Family. Objective - Vital Signs/Intake and Output Vital Signs (last 24 hours): Temp Pulse Resp BP Pulse Ox 98.1 F 113 H 20 86/35 L 98 04/18/18 12:00 04/18/18 15:55 04/18/18 15:00 04/18/18 14:31 04/18/18 15:00 Intake and Output: 04/18/18 04/18/18 06:59 18:59 Intake Total 1156 478 Output Total 0 Balance 1156 478 - Medications Medications: Current Medications Acetaminophen (Tylenol 650mg/20.3ml Solution Ud) 650 mg PO Q4 PRN PRN Reason: Fever Last Admin: 04/16/18 23:45 Dose: 650 mg Albuterol/Ipratropium (Duoneb 3 Mg/0.5 Mg (3 Ml) Ud) 3 ml INH RQ6 [facility] Last Admin: 04/18/18 13:54 Dose: 3 ml Ascorbic Acid (Vitamin C 500 Mg Tab) 500 mg PO QID [facility] Ergocalciferol (Drisdol 50,000 Intl Units Cap) 1 cap PO Q7D [facility] Last Admin: 04/18/18 11:27 Dose: 1 cap Heparin Sodium (Porcine) (Heparin) 5,000 units SC Q12 [facility] Last Admin: 04/18/18 10:28 Dose: 5,000 units Fluconazole (Diflucan Iv 100 Mg/50 Ml Ns) 50 mls @ 100 mls/hr IVPB DAILY [facility] PRN Reason: Protocol Last Admin: 04/18/18 09:28 Dose: 100 mls/hr Ampicillin 2 gm/ Sodium (Chloride) 100 mls @ 200 mls/hr IVPB Q6H [facility] PRN Reason: Protocol Last Admin: 04/18/18 11:34 Dose: 200 mls/hr Meropenem 500 mg/ Sodium (Chloride) 100 mls @ 100 mls/hr IVPB Q12H [facility] PRN Reason: Protocol Last Admin: 04/18/18 02:08 Dose: 100 mls/hr Multivitamins/Vitamin C 10 ml/Insulin Human Regular 10 unit / Amino Acids 1, 010.1 mls @ 42 mls/hr IV .Q24H [facility] Last Admin: 04/17/18 17:23 Dose: 42 mls/hr Dextrose/Sodium Chloride (Dextrose 5%/0.9% Ns 1000 Ml) 1,000 mls @ 40 mls/hr IV .Q24H [facility] Stop: 04/18/18 18:00 Last Admin: 04/18/18 11:33 Dose: 40 mls/hr Multivitamins/Vitamin C 10 ml/Chromium/Copper/Manganese/Seleni/Zn 1 ml/ Amino Acids 1,011 mls @ 42 mls/hr IV .Q24H [facility] Stop: 04/19/18 17:59 Fat Emulsion Intravenous (Intralipid 20%) 250 mls @ 21 mls/hr IV QOD@1800 [facility] Multivitamins/Vitamin C (Multi-Delyn Liquid) 5 ml PO DAILY [facility] Last Admin: 04/18/18 10:27 Dose: 5 ml Nystatin (Nystop Topical Powder) 1 applic TOP BID [facility] Last Admin: 04/18/18 10:31 Dose: 1 applic Pantoprazole Sodium (Protonix Susp) 40 mg PO DAILY [facility] Last Admin: 04/18/18 10:28 Dose: 40 mg Silver Sulfadiazine (Silvadene 1%) 0 ea TOP DAILY [facility] Last Admin: 04/18/18 11:30 Dose: 1 applic Silver Sulfadiazine (Silvadene 1%) 0 ea TOP Q12 [facility] Last Admin: 04/18/18 11:31 Dose: 1 applic Vitamin A (Vitamin A & D Oint Ud Foilpak) 1 ea TOP Q8 PRN PRN Reason: Dry Lips Last Admin: 04/17/18 21:18 Dose: 1 ea - Labs Labs: 04/18/18 06:35 04/18/18 06:36 PT 11.2 SECONDS (9.7-12.2) 04/05/18 06:15 INR 1.0 04/05/18 06:15 APTT 29 SECONDS (21-34) 04/05/18 06:15 - Constitutional Appears: Non-toxic, No Acute Distress, Older Than Stated Age, Chronically Ill - Head Exam Head Exam: ATRAUMATIC - Eye Exam Eye Exam: EOMI. absent: Scleral icterus - ENT Exam ENT Exam: Mucous Membranes Moist - Respiratory Exam Respiratory Exam: NORMAL BREATHING PATTERN. absent: Accessory Muscle Use, Respiratory Distress - Cardiovascular Exam Cardiovascular Exam: +S1, +S2. absent: Bradycardia, Tachycardia - GI/Abdominal Exam GI & Abdominal Exam: Hernia. absent: Distended, Firm, Guarding, Rigid, Soft, Tenderness - Extremities Exam Additional comments: b/l LE wrapped with silvadene and telfa palpable pedal pulses b/l - Neurological Exam Neurological Exam: Awake - Skin Skin Exam: Intact, Warm Assessment and Plan - Assessment and Plan (Free Text) Assessment: 52F w/ multiple skin lesions s/p debridement of bilateral lower extremity. Plan: Telephone consent was obtained and witnessed by 2 nurses Punch biopsy was performed at bedside proper hemostasis was achieved specimens taken directly to Pathology d/w Dr. Nguyen surgical attending covering for Dr. Oscar Grier PGY1
--- NOTE | 2018-04-18 16:48 | CP.PCM.PN ---
Subjective - Date & Time of Evaluation Date of Evaluation: 04/18/18 Time of Evaluation: 16:46 - Subjective Subjective: Nephrology Consultation Note: Assessment: critical Anuric Acute Kidney Injury (N17.9) ? 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 Albumin IV prn for low BP. maintain hemodyanamics stable. 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 renal sono: normal echogenicity but pt not stable to tolerate invasive procedure such as kidney biopsy. Vasculitis panel sent and negative. repeat urine pro/cr Dose meds/antibiotics for reduced GFR. Avoid fleets enema/magnesium based laxatives. Avoid nephrotoxins/NSAIDs Glycemic control Further work up/management as per primary team Thanks for allowing me to participate in care of your patient. Will follow patient with you. Please call if any Qs. had d/w ICU team and family bedside Dr Jose G Clancy Office: [phone] HPI: Pt is a 52 F without known medical hx, lives in [place] presented [place] as found to have unresponsiveness and here for further eval found to have severe renal failure, anemia and high WBC count renal consult for LULA eval Denies OTC/herbal meds or NSAIDs No recent iodinated contrast exposure. ROS: unable. intubated 04/01/18 extubated 04/07/18. no UOP as per nursing staff Physical Examination: General Appearance: frail, chronically debilitated and ill appearing, cachexic Vitals reviewed and noted as below Head; Atraumatic, normocephalic EYES: Pupils are equal, round and reactive to light accommodation. Eye muscles and extraocular movement intact. Sclera is anicteric. Neck; supple no lymphadenopathy, no thyromegaly or bruit Lungs: normal respiratory rate/effort. Breath sounds bilateral equal and clear anteriorly. Heart: Normal rate. s1s2 normal. No rub or gallop. Extremities: 1+ edema. No varicose veins. has wounds in lower extremities and dressed s/p debridement Neurological: Patient is awake but But unable to Communicate much Skin: Warm and dry. Normal turgor. No rash. Palpitation: Normal elasticity for age. has echymoses over lower torso Abdomen: Abdomen is soft. Bowel sounds +. There is no abdominal tenderness, no guarding/rigidity no organomegaly. globular non reducible mass in lower abdomen noted Psych: unable MSK: no joint tenderness or swelling. Digits and nails normal, no deformity : kidney or bladder not palpable. Access: permacath Labs/imaging reviewed. Past medical history, past surgical history, family history, social history, allergy reviewed and noted as below Family hx: no hx of CKD. Rest non-contributory Objective - Vital Signs/Intake and Output Vital Signs (last 24 hours): Temp Pulse Resp BP Pulse Ox 98.1 F 113 H 20 86/35 L 98 04/18/18 12:00 04/18/18 15:55 04/18/18 15:00 04/18/18 14:31 04/18/18 15:00 Intake and Output: 04/18/18 04/18/18 06:59 18:59 Intake Total 1156 478 Output Total 0 Balance 1156 478 - Medications Medications: Current Medications Acetaminophen (Tylenol 650mg/20.3ml Solution Ud) 650 mg PO Q4 PRN PRN Reason: Fever Last Admin: 04/16/18 23:45 Dose: 650 mg Albuterol/Ipratropium (Duoneb 3 Mg/0.5 Mg (3 Ml) Ud) 3 ml INH RQ6 [facility] Last Admin: 04/18/18 13:54 Dose: 3 ml Ascorbic Acid (Vitamin C 500 Mg Tab) 500 mg PO QID [facility] Ergocalciferol (Drisdol 50,000 Intl Units Cap) 1 cap PO Q7D [facility] Last Admin: 04/18/18 11:27 Dose: 1 cap Heparin Sodium (Porcine) (Heparin) 5,000 units SC Q12 [facility] Last Admin: 05/29/18 10:28 Dose: 5,000 units Ampicillin 2 gm/ Sodium (Chloride) 100 mls @ 200 mls/hr IVPB Q6H [facility] PRN Reason: Protocol Last Admin: 04/18/18 11:34 Dose: 200 mls/hr Meropenem 500 mg/ Sodium (Chloride) 100 mls @ 100 mls/hr IVPB Q12H [facility] PRN Reason: Protocol Last Admin: 04/18/18 02:08 Dose: 100 mls/hr Multivitamins/Vitamin C 10 ml/Insulin Human Regular 10 unit / Amino Acids 1, 010.1 mls @ 42 mls/hr IV .Q24H [facility] Last Admin: 04/17/18 17:23 Dose: 42 mls/hr Dextrose/Sodium Chloride (Dextrose 5%/0.9% Ns 1000 Ml) 1,000 mls @ 40 mls/hr IV .Q24H [facility] Stop: 04/18/18 18:00 Last Admin: 04/18/18 11:33 Dose: 40 mls/hr Multivitamins/Vitamin C 10 ml/Chromium/Copper/Manganese/Seleni/Zn 1 ml/ Amino Acids 1,011 mls @ 42 mls/hr IV .Q24H [facility] Stop: 04/19/18 17:59 Fat Emulsion Intravenous (Intralipid 20%) 250 mls @ 21 mls/hr IV QOD@1800 [facility] Multivitamins/Vitamin C (Multi-Delyn Liquid) 5 ml PO DAILY [facility] Last Admin: 04/18/18 10:27 Dose: 5 ml Nystatin (Nystop Topical Powder) 1 applic TOP BID [facility] Last Admin: 04/18/18 10:31 Dose: 1 applic Pantoprazole Sodium (Protonix Susp) 40 mg PO DAILY [facility] Last Admin: 04/18/18 10:28 Dose: 40 mg Silver Sulfadiazine (Silvadene 1%) 0 ea TOP DAILY [facility] Last Admin: 04/18/18 11:30 Dose: 1 applic Silver Sulfadiazine (Silvadene 1%) 0 ea TOP Q12 [facility] Last Admin: 04/18/18 11:31 Dose: 1 applic Vitamin A (Vitamin A & D Oint Ud Foilpak) 1 ea TOP Q8 PRN PRN Reason: Dry Lips Last Admin: 04/17/18 21:18 Dose: 1 ea - Labs Labs: 04/18/18 06:35 04/18/18 06:36 PT 11.2 SECONDS (9.7-12.2) 04/05/18 06:15 INR 1.0 04/05/18 06:15 APTT 29 SECONDS (21-34) 04/05/18 06:15
[2018-04-18] MEDS ORDERED: Glucagon Recombinant 1 mg Inj IM PRN (17:52)
[2018-04-18] MEDS ORDERED: Dextrose 50% SYRINGE Inj (50 ml) IVP PRN (17:52)
[2018-04-18] MEDS ORDERED: PPN#1 IV SCH (18:00)
[2018-04-18] MEDS: PPN #1 IV SCH (18:07)
--- NOTE | 2018-04-18 19:19 | CP.PCM.PN ---
Subjective - Date & Time of Evaluation Date of Evaluation: 04/18/18 Time of Evaluation: 16:00 - Subjective Subjective: Appears comfortable s/p skin biopsy Objective - Vital Signs/Intake and Output Vital Signs (last 24 hours): Temp Pulse Resp BP Pulse Ox 98.1 F 106 H 23 88/67 L 98 04/18/18 12:00 04/18/18 19:00 04/18/18 19:00 04/18/18 17:31 04/18/18 19:00 Intake and Output: 04/18/18 04/19/18 18:59 06:59 Intake Total 478 Output Total 0 Balance 478 - Medications Medications: Current Medications Acetaminophen (Tylenol 650mg/20.3ml Solution Ud) 650 mg PO Q4 PRN PRN Reason: Fever Last Admin: 04/16/18 23:45 Dose: 650 mg Albumin Human (Albumin Human 25% (12.5 Gm/50 Ml)) 25 gm IV MWF PRN PRN Reason: Other Albuterol/Ipratropium (Duoneb 3 Mg/0.5 Mg (3 Ml) Ud) 3 ml INH RQ6 [facility] Last Admin: 04/18/18 13:54 Dose: 3 ml Ascorbic Acid (Vitamin C 500 Mg Tab) 500 mg PO QID [facility] Last Admin: 04/18/18 18:06 Dose: 500 mg Dextrose (Dextrose 50% Inj) 0 ml IVP .STAT PRN; Protocol PRN Reason: Hypoglycemia Protocol Last Admin: 04/18/18 18:05 Dose: 50 ml Dextrose (Glutose 15) 0 gm PO .ONCE PRN; Protocol PRN Reason: Hypoglycemia Protocol Ergocalciferol (Drisdol 50,000 Intl Units Cap) 1 cap PO Q7D [facility] Last Admin: 04/18/18 11:27 Dose: 1 cap Glucagon (Glucagen Diagnostic Kit) 0 mg IM .STAT PRN; Protocol PRN Reason: Hypoglycemia Protocol Heparin Sodium (Porcine) (Heparin) 5,000 units SC Q12 [facility] Last Admin: 04/18/18 10:28 Dose: 5,000 units Meropenem 500 mg/ Sodium (Chloride) 100 mls @ 100 mls/hr IVPB Q12H [facility] PRN Reason: Protocol Last Admin: 04/18/18 14:06 Dose: 100 mls/hr Multivitamins/Vitamin C 10 ml/Insulin Human Regular 10 unit / Amino Acids 1, 010.1 mls @ 42 mls/hr IV .Q24H [facility] Last Admin: 04/18/18 18:07 Dose: Not Given Multivitamins/Vitamin C 10 ml/Chromium/Copper/Manganese/Seleni/Zn 1 ml/ Amino Acids 1,011 mls @ 42 mls/hr IV .Q24H [facility] Stop: 04/19/18 17:59 Last Admin: 04/18/18 18:05 Dose: 42 mls/hr Fat Emulsion Intravenous (Intralipid 20%) 250 mls @ 21 mls/hr IV QOD@1800 [facility] Multivitamins/Vitamin C (Multi-Delyn Liquid) 5 ml PO DAILY [facility] Last Admin: 04/18/18 10:27 Dose: 5 ml Nystatin (Nystop Topical Powder) 1 applic TOP BID [facility] Last Admin: 04/18/18 18:08 Dose: 1 applic Pantoprazole Sodium (Protonix Susp) 40 mg PO DAILY [facility] Last Admin: 04/18/18 10:28 Dose: 40 mg Silver Sulfadiazine (Silvadene 1%) 0 ea TOP DAILY [facility] Last Admin: 04/18/18 11:30 Dose: 1 applic Silver Sulfadiazine (Silvadene 1%) 0 ea TOP Q12 [facility] Last Admin: 04/18/18 11:31 Dose: 1 applic Vitamin A (Vitamin A & D Oint Ud Foilpak) 1 ea TOP Q8 PRN PRN Reason: Dry Lips Last Admin: 04/17/18 21:18 Dose: 1 ea - Labs Labs: 04/18/18 06:35 04/18/18 06:36 PT 11.2 SECONDS (9.7-12.2) 04/05/18 06:15 INR 1.0 04/05/18 06:15 APTT 29 SECONDS (21-34) 04/05/18 06:15 - Head Exam Head Exam: ATRAUMATIC - Eye Exam Eye Exam: Normal appearance - ENT Exam ENT Exam: Mucous Membranes Dry - Respiratory Exam Respiratory Exam: NORMAL BREATHING PATTERN - Cardiovascular Exam Cardiovascular Exam: +S1, +S2 - GI/Abdominal Exam GI & Abdominal Exam: Normal Bowel Sounds Assessment and Plan (1) Anemia Assessment & Plan: anemia of chronic disease and renal disease EPO per renal transfusion support PRN Status: Acute (2) Coagulopathy Assessment & Plan: nutritional Status: Acute
[2018-04-18] MEDS: Acetaminophen 650mg/20.3ml solution UD PO PRN (21:52)
[2018-04-18] MEDS: Vitamins A & D Oint UD Foilpak TOP PRN (21:53)
--- NOTE | 2018-04-18 23:02 | CP.PCM.PN ---
Subjective - Date & Time of Evaluation Date of Evaluation: 04/18/18 Time of Evaluation: 18:00 - Subjective Subjective: PT SEEN AND EXAMINED Objective - Vital Signs/Intake and Output Vital Signs (last 24 hours): Temp Pulse Resp BP Pulse Ox 100 F H 109 H 22 101/41 L 99 04/18/18 21:52 04/18/18 22:31 04/18/18 21:00 04/18/18 20:38 04/18/18 21:00 Intake and Output: 04/18/18 04/19/18 18:59 06:59 Intake Total 1062 246 Output Total 0 Balance 1062 246 - Medications Medications: Current Medications Acetaminophen (Tylenol 650mg/20.3ml Solution Ud) 650 mg PO Q4 PRN PRN Reason: Fever Last Admin: 04/18/18 21:52 Dose: 650 mg Albumin Human (Albumin Human 25% (12.5 Gm/50 Ml)) 25 gm IV MWF PRN PRN Reason: Other Albuterol/Ipratropium (Duoneb 3 Mg/0.5 Mg (3 Ml) Ud) 3 ml INH RQ6 [facility] Last Admin: 04/18/18 19:45 Dose: 3 ml Ascorbic Acid (Vitamin C 500 Mg Tab) 500 mg PO QID [facility] Last Admin: 04/18/18 21:43 Dose: 500 mg Dextrose (Dextrose 50% Inj) 0 ml IVP .STAT PRN; Protocol PRN Reason: Hypoglycemia Protocol Last Admin: 04/18/18 18:05 Dose: 50 ml Dextrose (Glutose 15) 0 gm PO .ONCE PRN; Protocol PRN Reason: Hypoglycemia Protocol Ergocalciferol (Drisdol 50,000 Intl Units Cap) 1 cap PO Q7D [facility] Last Admin: 04/18/18 11:27 Dose: 1 cap Glucagon (Glucagen Diagnostic Kit) 0 mg IM .STAT PRN; Protocol PRN Reason: Hypoglycemia Protocol Heparin Sodium (Porcine) (Heparin) 5,000 units SC Q12 [facility] Last Admin: 04/18/18 21:43 Dose: 5,000 units Meropenem 500 mg/ Sodium (Chloride) 100 mls @ 100 mls/hr IVPB Q12H [facility] PRN Reason: Protocol Last Admin: 04/18/18 14:06 Dose: 100 mls/hr Multivitamins/Vitamin C 10 ml/Insulin Human Regular 10 unit / Amino Acids 1, 010.1 mls @ 42 mls/hr IV .Q24H [facility] Last Admin: 04/18/18 18:07 Dose: Not Given Multivitamins/Vitamin C 10 ml/Chromium/Copper/Manganese/Seleni/Zn 1 ml/ Amino Acids 1,011 mls @ 42 mls/hr IV .Q24H [facility] Stop: 04/19/18 17:59 Last Admin: 04/18/18 18:05 Dose: 42 mls/hr Fat Emulsion Intravenous (Intralipid 20%) 250 mls @ 21 mls/hr IV QOD@1800 [facility] Multivitamins/Vitamin C (Multi-Delyn Liquid) 5 ml PO DAILY [facility] Last Admin: 04/18/18 10:27 Dose: 5 ml Nystatin (Nystop Topical Powder) 1 applic TOP BID [facility] Last Admin: 04/18/18 18:08 Dose: 1 applic Pantoprazole Sodium (Protonix Susp) 40 mg PO DAILY [facility] Last Admin: 04/18/18 10:28 Dose: 40 mg Silver Sulfadiazine (Silvadene 1%) 0 ea TOP DAILY [facility] Last Admin: 04/18/18 11:30 Dose: 1 applic Silver Sulfadiazine (Silvadene 1%) 0 ea TOP Q12 [facility] Last Admin: 04/18/18 11:31 Dose: 1 applic Vitamin A (Vitamin A & D Oint Ud Foilpak) 1 ea TOP Q8 PRN PRN Reason: Dry Lips Last Admin: 04/18/18 21:53 Dose: 1 ea - Labs Labs: 04/18/18 06:35 04/18/18 06:36 PT 11.2 SECONDS (9.7-12.2) 04/05/18 06:15 INR 1.0 04/05/18 06:15 APTT 29 SECONDS (21-34) 04/05/18 06:15 Assessment and Plan (1) Acute respiratory failure Status: Acute (2) Acute tubular necrosis Status: Acute (3) Listeria septicemia Status: Acute (4) Leukocytosis Status: Acute
[2018-04-19] MEDS: Albuterol-Ipratrop 3 mg / 0.5 (3 ml) UD INH SCH ×3 (01:11→13:40)
[2018-04-19] MEDS: Meropenem 500 MG in Sodium Chloride 0.9% 100 ML IVPB SCH (01:26)
[2018-04-19 06:17] LABS: BASO # 0.1 K/uL (0.0-0.2); BASO % 1.1 % (0.0-2.0); EOS # 0.1 K/uL (0.0-0.7); EOS % 0.7 % (0.0-4.0); LYMPH # 0.9 K/uL (1.0-4.3); LYMPH % 10.6 % (20.0-40.0); MEAN CELL VOLUME 88.2 fL (81.0-99.0); MEAN CORPUSCULAR HEMOGLOBIN 29.6 pg (27.0-31.0); MEAN CORPUSCULAR HGB CONC 33.6 g/dL (33.0-37.0); MEAN PLATELET VOLUME 9.2 fL (7.2-11.7); MONO # 0.6 K/uL (0.0-0.8); MONO % 6.4 % (0.0-10.0); NEUT # 7.2 K/uL (1.8-7.0); NEUT % 81.2 % (50.0-75.0); RBC 2.71 Mil/uL (3.80-5.20); RED CELL DISTRIBUTION WIDTH 16.1 % (11.5-14.5); WHITE BLOOD COUNT 8.9 K/uL (4.8-10.8)
[2018-04-19 06:29] LABS: ALB/GLOB RATIO 0.9 (1.0-2.1); ALBUMIN 2.8 g/dL (3.5-5.0); CALCIUM 8.5 mg/dl (8.6-10.4)
[2018-04-19] MEDS ORDERED: Albumin Human 25% (12.5 gm/50 ml) IV PRN (07:00)
[2018-04-19] MEDS: Pantoprazole 40 mg Susp UD PO SCH (10:55)
[2018-04-19] MEDS: Silver Sulfadiazine 1% Cream (400 gm) TOP SCH ×2 (10:56→13:07)
[2018-04-19] MEDS: Multiple Vitamins Oral Solution PO SCH (10:59)
[2018-04-19] MEDS ORDERED: AMPicillin 2 GM in Sodium Chloride 0.9% 100 ML IVPB SCH (12:00)
[2018-04-19 12:17] VITALS: TEMP 98.5
--- NOTE | 2018-04-19 12:23 | CP.PCM.PN ---
Subjective - Date & Time of Evaluation Date of Evaluation: 04/19/18 Time of Evaluation: 12:08 - Subjective Subjective: Plastic Surgery Follow-up Objective - Vital Signs/Intake and Output Vital Signs (last 24 hours): Temp Pulse Resp BP Pulse Ox 98.2 F 92 H 17 106/70 97 04/19/18 11:17 04/19/18 11:17 04/19/18 11:17 04/19/18 11:17 04/19/18 11:16 Intake and Output: 04/19/18 04/19/18 06:59 18:59 Intake Total 1104 246 Balance 1104 246 - Medications Medications: Current Medications Acetaminophen (Tylenol 650mg/20.3ml Solution Ud) 650 mg PO Q4 PRN PRN Reason: Fever Last Admin: 04/18/18 21:52 Dose: 650 mg Albumin Human (Albumin Human 25% (12.5 Gm/50 Ml)) 25 gm IV MWF PRN PRN Reason: Other Last Admin: 04/19/18 09:31 Dose: 12.5 gm Albuterol/Ipratropium (Duoneb 3 Mg/0.5 Mg (3 Ml) Ud) 3 ml INH RQ6 [facility] Last Admin: 04/19/18 07:49 Dose: 3 ml Ascorbic Acid (Vitamin C 500 Mg Tab) 500 mg PO QID [facility] Last Admin: 04/19/18 10:55 Dose: 500 mg Dextrose (Dextrose 50% Inj) 0 ml IVP .STAT PRN; Protocol PRN Reason: Hypoglycemia Protocol Last Admin: 04/18/18 18:05 Dose: 50 ml Dextrose (Glutose 15) 0 gm PO .ONCE PRN; Protocol PRN Reason: Hypoglycemia Protocol Ergocalciferol (Drisdol 50,000 Intl Units Cap) 1 cap PO Q7D [facility] Last Admin: 04/18/18 11:27 Dose: 1 cap Glucagon (Glucagen Diagnostic Kit) 0 mg IM .STAT PRN; Protocol PRN Reason: Hypoglycemia Protocol Heparin Sodium (Porcine) (Heparin) 5,000 units SC Q12 [facility] Last Admin: 04/19/18 10:57 Dose: Not Given Meropenem 500 mg/ Sodium (Chloride) 100 mls @ 100 mls/hr IVPB Q12H [facility] PRN Reason: Protocol Last Admin: 04/19/18 01:26 Dose: 100 mls/hr Multivitamins/Vitamin C 10 ml/Chromium/Copper/Manganese/Seleni/Zn 1 ml/ Amino Acids 1,011 mls @ 42 mls/hr IV .Q24H [facility]AN Stop: 04/19/18 17:59 Last Admin: 04/18/18 18:05 Dose: 42 mls/hr Fat Emulsion Intravenous (Intralipid 20%) 250 mls @ 21 mls/hr IV QOD@1800 [facility] Ampicillin 2 gm/ Sodium (Chloride) 100 mls @ 200 mls/hr IVPB Q6H [facility] PRN Reason: Protocol Multivitamins/Vitamin C 10 ml/Chromium/Copper/Manganese/Seleni/Zn 1 ml/ Amino Acids 1,011 mls @ 42 mls/hr IV .Q24H [facility] Stop: 04/20/18 17:59 Multivitamins/Vitamin C (Multi-Delyn Liquid) 5 ml PO DAILY [facility] Last Admin: 04/19/18 10:59 Dose: 5 ml Nystatin (Nystop Topical Powder) 1 applic TOP BID [facility] Last Admin: 04/19/18 10:56 Dose: 1 applic Pantoprazole Sodium (Protonix Susp) 40 mg PO DAILY [facility] Last Admin: 04/19/18 10:55 Dose: 40 mg Silver Sulfadiazine (Silvadene 1%) 0 ea TOP DAILY [facility] Last Admin: 04/19/18 10:56 Dose: 1 applic Silver Sulfadiazine (Silvadene 1%) 0 ea TOP Q12 [facility] Last Admin: 04/18/18 22:00 Dose: 1 applic Vitamin A (Vitamin A & D Oint Ud Foilpak) 1 ea TOP Q8 PRN PRN Reason: Dry Lips Last Admin: 04/18/18 21:53 Dose: 1 ea - Labs Labs: 04/19/18 06:04 04/19/18 06:04 PT 11.2 SECONDS (9.7-12.2) 04/05/18 06:15 INR 1.0 04/05/18 06:15 APTT 29 SECONDS (21-34) 04/05/18 06:15 - Additional Findings Additional findings: Patient extubated on BiPAP. No pressors. Afebrile greater than 24 hours. WBC WNL. Per discussion with Dr. Yomi Mckeon, Cash Register Operator, and Dr. Mik Huynh, Resident, sepsis may have had a urologic or gastrointestinal etiology. Wounds demarcating; continue dressings as previously stated. Strongly advise and concur with plan for transfer [facility] to [facility].
--- NOTE | 2018-04-19 12:54 | CP.CCUPN ---
CCU Subjective - Physician Review Subjective (Free Text): Patient seen and examined at bedside. No overnight events reported. ROS could not be obtained due to patient being non-verbal. CCU Objective - Vital Signs / Intake & Output Vital Signs (Last 4 hours): Vital Signs Temp Pulse Pulse Resp BP BP Pulse Ox 04/19/18 12:01 84 17 101/70 98 04/19/18 12:00 98.5 F 91 H 17 98 04/19/18 11:50 98.5 F 90 19 102/64 100 04/19/18 11:47 98.3 F 92 H 19 102/64 04/19/18 11:46 90 18 102/64 100 04/19/18 11:31 87 18 105/66 98 04/19/18 11:17 98.2 F 92 H 17 106/70 04/19/18 11:16 91 H 19 106/70 106/70 97 04/19/18 11:02 98.4 F 94 H 19 114/70 04/19/18 11:01 92 H 19 114/70 97 04/19/18 11:00 95 H 18 98 04/19/18 10:47 98 F 94 H 21 108/63 04/19/18 10:46 95 H 17 108/63 108/63 97 04/19/18 10:31 95 H 23 97/64 L 96 04/19/18 10:16 95 H 17 106/75 97 04/19/18 10:15 106/75 04/19/18 10:01 91 H 19 97/62 L 98 04/19/18 10:00 94 H 16 96 04/19/18 09:46 96 H 19 91/51 L 91/51 L 98 04/19/18 09:31 94 H 20 87/55 L 87/55 L 97 04/19/18 09:16 98 H 19 82/56 L 82/56 L 98 04/19/18 09:01 100 H 18 89/36 L 89/36 L 97 04/19/18 09:00 100 H 21 97 Intake and Output (Last 8hrs): Intake & Output 04/18/18 04/19/18 04/19/18 22:59 06:59 14:59 Intake Total 614 716 817 Output Total 0 Balance 614 716 817 Weight 97 lb Intake: Intake, IV Amount 376 196 433 Left Distal Port Internal 294 336 252 Jugular Left Medial Port Internal 260 380 240 Jugular Blood Product 325 Red Blood Cells Cpd As1 325 Lr Unit [id number] Other 60 Output: Drainage 0 HD fluid removal 0 Other: # Bowel Movements 1 1 1 - Physical Exam Head: Positive for: Atraumatic Mouth: Positive for: Moist Mucous Membranes Respiratory/Chest: Positive for: Good Air Exchange. Negative for: Respiratory Distress, Accessory Muscle Use Cardiovascular: Positive for: Normal S1, S2, Gallop Abdomen: Positive for: Distention, Other (abdomen reveals a 5 cm circular bulb no Bowel sounds in bulb). Negative for: Tenderness, Rebound, Guarding Upper Extremity: Positive for: Edema. Negative for: Cyanosis Lower Extremity: Positive for: Edema, Other (non-blanching ecchymotic lesions covering more than 25 percent of lower extremity and abdomen. S/P debridement with Dressing b/L. ) Neurological: Negative for: GCS=15 (11T) Psychiatric: Positive for: Alert, Oriented x 3 - Medications Active Medications: Active Medications Generic Name Dose Route Start Last Admin Trade Name Freq PRN Reason Stop Dose Admin Acetaminophen 650 mg 04/13/18 07:37 04/18/18 21:52 Tylenol 650mg/20.3ml Solution Ud PO 650 mg Q4 PRN Administration Fever Albumin Human 25 gm 04/19/18 07:00 04/19/18 09:31 Albumin Human 25% (12.5 Gm/50 Ml) IV 12.5 gm MWF PRN Administration Other Albuterol/Ipratropium 3 ml 04/15/18 08:00 04/19/18 07:49 Duoneb 3 Mg/0.5 Mg (3 Ml) Ud INH 3 ml RQ6 NOLAN Administration Ascorbic Acid 500 mg 04/18/18 14:00 04/19/18 10:55 Vitamin C 500 Mg Tab PO 500 mg QID NOLAN Administration Dextrose 0 ml 04/18/18 17:52 04/18/18 18:05 Dextrose 50% Inj IVP 50 ml .STAT PRN Administration Hypoglycemia Protocol Protocol Dextrose 0 gm 04/18/18 17:52 Glutose 15 PO .ONCE PRN Hypoglycemia Protocol Protocol Ergocalciferol 1 cap 04/04/18 10:45 04/18/18 11:27 Drisdol 50,000 Intl Units Cap PO 1 cap Q7D [facility]OLAN Administration Glucagon 0 mg 04/18/18 17:52 Glucagen Diagnostic Kit IM .STAT PRN Hypoglycemia Protocol Protocol Heparin Sodium (Porcine) 5,000 units 04/13/18 22:00 04/19/18 10:57 Heparin SC Not Given Q12 NOLAN Meropenem 500 mg/ Sodium 100 mls @ 100 mls/hr 04/15/18 02:00 04/19/18 01:26 Chloride IVPB 100 mls/hr Q12H [facility] Administration Protocol Multivitamins/Vitamin C 10 ml/ 1,011 mls @ 42 mls/hr 04/18/18 18:00 04/18/18 18:05 Chromium/Copper/Manganese/ IV 04/19/18 17:59 42 mls/hr Seleni/Zn 1 ml/ Amino Acids .Q24H NOLAN Administration Fat Emulsion Intravenous 250 mls @ 21 mls/hr 04/19/18 18:00 Intralipid 20% IV QOD@1800 N[facility]AN Ampicillin 2 gm/ Sodium 100 mls @ 200 mls/hr 04/19/18 12:00 Chloride IVPB Q6H [facility]AN Protocol Multivitamins/Vitamin C 10 ml/ 1,011 mls @ 42 mls/hr 04/19/18 18:00 Chromium/Copper/Manganese/ IV 04/20/18 17:59 Seleni/Zn 1 ml/ Amino Acids .Q24H NOLAN Multivitamins/Vitamin C 5 ml 04/03/18 10:15 04/19/18 10:59 Multi-Delyn Liquid PO 5 ml DAILY NOLAN Administration Nystatin 1 applic 04/14/18 18:00 04/19/18 10:56 Nystop Topical Powder TOP 1 applic BID NOLAN Administration Pantoprazole Sodium 40 mg 04/16/18 10:00 04/19/18 10:55 Protonix Susp PO 40 mg DAILY NOLAN Administration Silver Sulfadiazine 0 ea 04/08/18 10:00 04/19/18 10:56 Silvadene 1% TOP 1 applic DAILY [facility]OLAN Administration Silver Sulfadiazine 0 ea 04/11/18 10:00 04/18/18 22:00 Silvadene 1% TOP 1 applic Q12 [facility]AN Administration Vitamin A 1 ea 04/10/18 23:00 04/18/18 21:53 Vitamin A & D Oint Ud Foilpak TOP 1 ea Q8 PRN Administration Dry Lips - Patient Studies Lab Studies: Microbiology Studies 04/13/18 08:55 Blood Culture - Final Blood NO GROWTH AFTER 5 DAYS 04/13/18 08:28 Blood Culture - Final Blood NO GROWTH AFTER 5 DAYS Lab Studies 04/19/18 04/19/18 04/19/18 Range/Units 11:37 09:54 07:29 WBC (4.8-10.8) K/uL RBC (3.80-5.20) Mil/uL Hgb (11.0-16.0) g/dL Hct (34.0-47.0) % MCV (81.0-99.0) fL MCH (27.0-31.0) pg MCHC (33.0-37.0) g/dL RDW (11.5-14.5) % Plt Count (130-400) K/uL MPV (7.2-11.7) fL Neut % (Auto) (50.0-75.0) % Lymph % (Auto) (20.0-40.0) % [place] % (Auto) (0.0-10.0) % Eos % (Auto) (0.0-4.0) % Baso % (Auto) (0.0-2.0) % Neut # (Auto) (1.8-7.0) K/uL Lymph # (Auto) (1.0-4.3) K/uL [place] # (Auto) (0.0-0.8) K/uL Eos # (Auto) (0.0-0.7) K/uL Baso # (Auto) (0.0-0.2) K/uL Sodium (132-148) mmol/L Potassium (3.6-5.2) mmol/L Chloride (98-107) mmol/L Carbon Dioxide (22-30) mmol/L Anion Gap (10-20) BUN (7-17) mg/dL Creatinine (0.7-1.2) mg/dL Est GFR ( Amer) Est GFR (Non-Af Amer) POC Glucose (mg/dL) 120 H 129 H (65-110) mg/dL Random Glucose (65-105) mg/dL Calcium (8.6-10.4) mg/dl Phosphorus (2.5-4.5) mg/dL Magnesium (1.6-2.3) mg/dL Total Bilirubin (0.2-1.3) mg/dL AST (14-36) U/L ALT (9-52) U/L Alkaline Phosphatase (38-126) U/L Total Protein (6.3-8.3) g/dL Albumin (3.5-5.0) g/dL Globulin (2.2-3.9) gm/dL Albumin/Globulin Ratio (1.0-2.1) Blood Type O POSITIVE Antibody Screen Negative 04/19/18 04/19/18 04/19/18 Range/Units 06:04 06:04 03:58 WBC 8.9 (4.8-10.8) K/uL RBC 2.71 L (3.80-5.20) Mil/uL Hgb 8.0 L (11.0-16.0) g/dL Hct 23.9 L (34.0-47.0) % MCV 88.2 (81.0-99.0) fL MCH 29.6 (27.0-31.0) pg MCHC 33.6 (33.0-37.0) g/dL RDW 16.1 H (11.5-14.5) % Plt Count 261 (130-400) K/uL MPV 9.2 (7.2-11.7) fL Neut % (Auto) 81.2 H (50.0-75.0) % Lymph % (Auto) 10.6 L (20.0-40.0) % [place] % (Auto) 6.4 (0.0-10.0) % Eos % (Auto) 0.7 (0.0-4.0) % Baso % (Auto) 1.1 (0.0-2.0) % Neut # (Auto) 7.2 H (1.8-7.0) K/uL Lymph # (Auto) 0.9 L (1.0-4.3) K/uL [place] # (Auto) 0.6 (0.0-0.8) K/uL Eos # (Auto) 0.1 (0.0-0.7) K/uL Baso # (Auto) 0.1 (0.0-0.2) K/uL Sodium 145 (132-148) mmol/L Potassium 4.3 (3.6-5.2) mmol/L Chloride 106 (98-107) mmol/L Carbon Dioxide 25 (22-30) mmol/L Anion Gap 19 (10-20) BUN 51 H (7-17) mg/dL Creatinine 1.9 H (0.7-1.2) mg/dL Est GFR ( Amer) 33 Est GFR (Non-Af Amer) 28 POC Glucose (mg/dL) 116 H (65-110) mg/dL Random Glucose 91 (65-105) mg/dL Calcium 8.5 L (8.6-10.4) mg/dl Phosphorus 4.4 (2.5-4.5) mg/dL Magnesium 2.0 (1.6-2.3) mg/dL Total Bilirubin 1.0 (0.2-1.3) mg/dL AST 19 (14-36) U/L ALT 23 (9-52) U/L Alkaline Phosphatase 82 (38-126) U/L Total Protein 5.9 L (6.3-8.3) g/dL Albumin 2.8 L (3.5-5.0) g/dL Globulin 3.1 (2.2-3.9) gm/dL Albumin/Globulin Ratio 0.9 L (1.0-2.1) Blood Type Antibody Screen 04/18/18 04/18/18 04/18/18 Range/Units 23:26 19:59 17:52 WBC (4.8-10.8) K/uL RBC (3.80-5.20) Mil/uL Hgb (11.0-16.0) g/dL Hct (34.0-47.0) % MCV (81.0-99.0) fL MCH (27.0-31.0) pg MCHC (33.0-37.0) g/dL RDW (11.5-14.5) % Plt Count (130-400) K/uL MPV (7.2-11.7) fL Neut % (Auto) (50.0-75.0) % Lymph % (Auto) (20.0-40.0) % [place] % (Auto) (0.0-10.0) % Eos % (Auto) (0.0-4.0) % Baso % (Auto) (0.0-2.0) % Neut # (Auto) (1.8-7.0) K/uL Lymph # (Auto) (1.0-4.3) K/uL [place] # (Auto) (0.0-0.8) K/uL Eos # (Auto) (0.0-0.7) K/uL Baso # (Auto) (0.0-0.2) K/uL Sodium (132-148) mmol/L Potassium (3.6-5.2) mmol/L Chloride (98-107) mmol/L Carbon Dioxide (22-30) mmol/L Anion Gap (10-20) BUN (7-17) mg/dL Creatinine (0.7-1.2) mg/dL Est GFR ( Amer) Est GFR (Non-Af Amer) POC Glucose (mg/dL) 119 H 94 42 L (65-110) mg/dL Random Glucose (65-105) mg/dL Calcium (8.6-10.4) mg/dl Phosphorus (2.5-4.5) mg/dL Magnesium (1.6-2.3) mg/dL Total Bilirubin (0.2-1.3) mg/dL AST (14-36) U/L ALT (9-52) U/L Alkaline Phosphatase (38-126) U/L Total Protein (6.3-8.3) g/dL Albumin (3.5-5.0) g/dL Globulin (2.2-3.9) gm/dL Albumin/Globulin Ratio (1.0-2.1) Blood Type Antibody Screen 04/18/18 Range/Units 17:50 WBC (4.8-10.8) K/uL RBC (3.80-5.20) Mil/uL Hgb (11.0-16.0) g/dL Hct (34.0-47.0) % MCV (81.0-99.0) fL MCH (27.0-31.0) pg MCHC (33.0-37.0) g/dL RDW (11.5-14.5) % Plt Count (130-400) K/uL MPV (7.2-11.7) fL Neut % (Auto) (50.0-75.0) % Lymph % (Auto) (20.0-40.0) % [place] % (Auto) (0.0-10.0) % Eos % (Auto) (0.0-4.0) % Baso % (Auto) (0.0-2.0) % Neut # (Auto) (1.8-7.0) K/uL Lymph # (Auto) (1.0-4.3) K/uL [place] # (Auto) (0.0-0.8) K/uL Eos # (Auto) (0.0-0.7) K/uL Baso # (Auto) (0.0-0.2) K/uL Sodium (132-148) mmol/L Potassium (3.6-5.2) mmol/L Chloride (98-107) mmol/L Carbon Dioxide (22-30) mmol/L Anion Gap (10-20) BUN (7-17) mg/dL Creatinine (0.7-1.2) mg/dL Est GFR ( Amer) Est GFR (Non-Af Amer) POC Glucose (mg/dL) 43 L (65-110) mg/dL Random Glucose (65-105) mg/dL Calcium (8.6-10.4) mg/dl Phosphorus (2.5-4.5) mg/dL Magnesium (1.6-2.3) mg/dL Total Bilirubin (0.2-1.3) mg/dL AST (14-36) U/L ALT (9-52) U/L Alkaline Phosphatase (38-126) U/L Total Protein (6.3-8.3) g/dL Albumin (3.5-5.0) g/dL Globulin (2.2-3.9) gm/dL Albumin/Globulin Ratio (1.0-2.1) Blood Type Antibody Screen Laboratory Results - last 24 hr 04/18/18 04/18/18 04/18/18 17:50 17:52 19:59 WBC RBC Hgb Hct MCV MCH MCHC RDW Plt Count MPV Neut % (Auto) Lymph % (Auto) [place] % (Auto) Eos % (Auto) Baso % (Auto) Neut # (Auto) Lymph # (Auto) [place] # (Auto) Eos # (Auto) Baso # (Auto) Sodium Potassium Chloride Carbon Dioxide Anion Gap BUN Creatinine Est GFR ( Amer) Est GFR (Non-Af Amer) POC Glucose (mg/dL) 43 L 42 L 94 Random Glucose Calcium Phosphorus Magnesium Total Bilirubin AST ALT Alkaline Phosphatase Total Protein Albumin Globulin Albumin/Globulin Ratio Blood Type Antibody Screen 04/18/18 04/19/18 04/19/18 23:26 03:58 06:04 WBC 8.9 RBC 2.71 L Hgb 8.0 L Hct 23.9 L MCV 88.2 MCH 29.6 MCHC 33.6 RDW 16.1 H Plt Count 261 MPV 9.2 Neut % (Auto) 81.2 H Lymph % (Auto) 10.6 L [place] % (Auto) 6.4 Eos % (Auto) 0.7 Baso % (Auto) 1.1 Neut # (Auto) 7.2 H Lymph # (Auto) 0.9 L [place] # (Auto) 0.6 Eos # (Auto) 0.1 Baso # (Auto) 0.1 Sodium Potassium Chloride Carbon Dioxide Anion Gap BUN Creatinine Est GFR ( Amer) Est GFR (Non-Af Amer) POC Glucose (mg/dL) 119 H 116 H Random Glucose Calcium Phosphorus Magnesium Total Bilirubin AST ALT Alkaline Phosphatase Total Protein Albumin Globulin Albumin/Globulin Ratio Blood Type Antibody Screen 04/19/18 04/19/18 04/19/18 06:04 07:29 09:54 WBC RBC Hgb Hct MCV MCH MCHC RDW Plt Count MPV Neut % (Auto) Lymph % (Auto) [place] % (Auto) Eos % (Auto) Baso % (Auto) Neut # (Auto) Lymph # (Auto) [place] # (Auto) Eos # (Auto) Baso # (Auto) Sodium 145 Potassium 4.3 Chloride 106 Carbon Dioxide 25 Anion Gap 19 BUN 51 H Creatinine 1.9 H Est GFR ( Amer) 33 Est GFR (Non-Af Amer) 28 POC Glucose (mg/dL) 129 H Random Glucose 91 Calcium 8.5 L Phosphorus 4.4 Magnesium 2.0 Total Bilirubin 1.0 AST 19 ALT 23 Alkaline Phosphatase 82 Total Protein 5.9 L Albumin 2.8 L Globulin 3.1 Albumin/Globulin Ratio 0.9 L Blood Type O POSITIVE Antibody Screen Negative 04/19/18 11:37 WBC RBC Hgb Hct MCV MCH MCHC RDW Plt Count MPV Neut % (Auto) Lymph % (Auto) [place] % (Auto) Eos % (Auto) Baso % (Auto) Neut # (Auto) Lymph # (Auto) [place] # (Auto) Eos # (Auto) Baso # (Auto) Sodium Potassium Chloride Carbon Dioxide Anion Gap BUN Creatinine Est GFR ( Amer) Est GFR (Non-Af Amer) POC Glucose (mg/dL) 120 H Random Glucose Calcium Phosphorus Magnesium Total Bilirubin AST ALT Alkaline Phosphatase Total Protein Albumin Globulin Albumin/Globulin Ratio Blood Type Antibody Screen Fingerstick Blood Sugar Results: 120 Review of Systems - Review of Systems Systems not reviewed;Unavailable: Acuity of Condition Critical Care Progress Note - Nutrition Nutrition: Nutrition Category Date Time Status NPO Diet [DIET] Diets 04/06/18 Breakfast Active Assessment/Plan - Assessment and Plan (Free Text) Assessment: 52 year old female with Unspecified medical history who presented to [facility] [place] ICU from [facility] Emergency Room. [place] On Admission patient was found to have leukocytosis and significant skin excoriations, foul smelling ulcer in the right leg, multiple ecchymosis in the abdomen/groin area/lower extremity, necrotic tissue on lower extremity and bullae. Patiently found to be severely Anemic and was transfused a total of 5 PRBC's. Patient is edematous in the upper and lower extremities b/ l. 04/04: Transfused 2 Units of PRBC's 04/06: Lower extremity Wound Debridement, Began Discussion of Transfer to Burn Unit. 04/07: Extubated. 04/11: Patient accepted to to [facility] under Dr. Neal De La Rosa. Demographics Sheet faxed. Resident at [facility] asked for CD's of imaging, surgery reports, all cultures, hospital course, and nurse report. Patient to be transferred tomorrow morning. 04/12: Reintubated for airway protection in preparation for transfer 04/13: Levophed increased and vasopressin added on in AM due to hypotension 04/13: Transfer to [facility] cancelled. Dr. Neal De La Rosa stated that patient is too critical to be transferred and should go to the nearest burn unit for treatment. 04/14: [facility] called regarding transfer. Stated they wouldn't accept patient because she is not burned nor does she have confirmed Anthony Zachariah syndrome by Biopsy. 04/15: Extubated. 04/18: Patient accepted in to [facility] under the service of Dr. Olvera. Plan: Neuro: GCS: 12 Sedation: None Lethargic today Cardio: ECHO (04/02): Shows Normal EF (55%) A: Hypotension Pressors: None Blood Pressure Stable Pulm: CXR (04/04): Endotracheal and NG tube in place. Mild venous congestion. Bilateral hilar prominence. Tortuous ectatic aorta. Biapical pleural thickening with upper lobe granulomatous changes. CXR (04/10): New Right infrahilar atelectasis. Otherwise no change. CXR (04/11): Possible very small bilateral pleural effusion. ABG (04/04): pH-7.56, C02-24, 02-188, HCO3-24.6 ABG (04/05): pH-7.56, C02 - 26, 02-157, HCO3-23.9 ABG ( 04/07): pH-7.52, C02 - 27, 02 - 187, HCO3-24.6 Extubated on 04/07. Extubated on 04/15 T Tolerating BiPAP. GI A: Elevated LFT's (Resolved) Abd/Pelvis CT (04/02/18): Prominent gallbladder distention with cholelithiasis. Clinically correlate for potential cholecystitis. Possible ileus or early distal small bowel obstruction. Potential segmental colitis in various large-bowel segments though this is limited in diagnostic power due to collapse of the majority of the large bowel. Mild bilateral hydroureteronephrosis potentially on the basis of enlarged myomatous uterus. Potential infectious or inflammatory process affecting the uterus. Myomatous uterine changes also noted. Anasarca and trace ascites. Hepatitis Panel - NEGATIVE OBGYN A: Uterine Mass TV Ultrasound PENDING for when patients are more stable. Renal A: LULA (Improving), Hypocalcemia, Hyperphosphetemia, Hyponatremia Complement Studies per ID - NEGATIVE [place]wey -137 Lambda-94, Lupus, MicroAlbumin w/ Cr - Elevated Total Protein - Elevated , Serum Immunifixation Detected. Renal US (04/04): B/L mild hyronephrosis. small non-obstructing renal calculi in Right Kidney phos binders, nephrovite, vit D, iron supplements per Nephro urology consult for b/l hydronephrosis per Nephro, Recs appreciated. Hemodialysis MWF, Dialysis Today. via permacath (placed on 04/06) Monitor Electrolytes Heme/Onc A: Iron Def. Anemia s/p 5 Units of PRBCs, thromboycytopenia (Resolved). 2 Units of PRBC's transfused on 04/04/18. Hematology/Onc Consulted (Dr. Ospina), Recs Appreciated Myeloproliferative Disorder RUle OUT. BCR/ABL1 GENE PCR - Not Detected, MACY - Negative? , ASO- Negative HgB Stable CA 125 - 90.6 , CA19-9 - 286 , CEA - 5.7. All ordered tumor markers elevated. DIC Workup to rule out Purpura Fulminans -Fibrinogen (WNL) Fibrin Split Products - Order Cancelled in AM (Unknown who) , Pt/PTT, Retic Count (WNL), Haptoglobin (Elevated), D- Dimer (Elevated, likely due to Malignancy) Haptoglobin - 346.1 (Elevated) HIT - NEGATIVE EPO per Renal. 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 Camarena, Recs appreciated) Lower Ext CT (04/02): Anasarca type pattern is favored over fasciitis of the bilateral lower extremities diffusely and is favored over fasciitis the fasciitis is still not excluded, a CT diagnosis is difficult to make without intravenous contrast. Necrotizing fasciitis is not identified however. Further clinical correlation is recommended. Blood Cultures (04/01 [place] ED): POSITIVE for Listeria Monocytogenes Blood Cultures (04/02): NEGATIVE Blood Culture (04/13): NEGATIVE Wound Cultures (04/02): Left and Right leg NEGATIVE (Prelim) ESR (04/03): WNL Hepatitis Panel - NEGATIVE Anitbiotics: Cont. Meropenem, Ampicillin. and Flucanazol. General Surgery/Vascular Surgery Consulted, Recs Appreciated. Stool for Vibrio Cholera per ID Wound Cultures - POSITIVE for Coagulase Negative Staph - Likely contamination. DIC Workup showed Elevated Haptoglobin and elevated D-dimer. UA (04/11), positive for Leuk Es and WBCs. Urine Culture (04/12) - POSITIVE for YEAST. Urine Culture (04/13) - POSITIVE for YEAST. 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 Will discuss will family transfer to Burn Unit for better management of extensive skin wounds. Transfer to [facility] cancelled. [facility] will not accept patient. Will try [facility] Again Silvadene w/ Xeroform for Diffuse Wounds. Debridement Speciment - "Fragments of Fibroconnective Tissue with Acute and chronic inflammation, abscess formation, granulation tissue, bacaterial colonies and reactive tissue) Anti-Shear Wound Care Protocol. No tape Clinitron Airbed Maintain Albumin > 3.2 Vitamin C BID Changed to QID per Vitamin A 10,000 IU recommended by plastic surgery but not in formula Plastic Surgery Consulted, Recs Appreciated Patient to be transferred to [facility] Today Endo A: Vitamin D Def. 50,000 IU Q7D MSK A: Deconditioning PT/OT Proph Protonix IV Daily Heparin Q12 Patient to be transferred to [facility] Today. Transport to come at 2PM
--- NOTE | 2018-04-19 13:10 | CP.PCM.PN ---
Subjective - Date & Time of Evaluation Date of Evaluation: 04/19/18 Time of Evaluation: 12:55 - Subjective Subjective: Appears comfortable Objective - Vital Signs/Intake and Output Vital Signs (last 24 hours): Temp Pulse Resp BP Pulse Ox 98.5 F 84 17 101/70 98 04/19/18 12:00 04/19/18 12:01 04/19/18 12:01 04/19/18 12:01 04/19/18 12:01 Intake and Output: 04/19/18 04/19/18 06:59 18:59 Intake Total 1104 817 Balance 1104 817 - Medications Medications: Current Medications Acetaminophen (Tylenol 650mg/20.3ml Solution Ud) 650 mg PO Q4 PRN PRN Reason: Fever Last Admin: 04/18/18 21:52 Dose: 650 mg Albumin Human (Albumin Human 25% (12.5 Gm/50 Ml)) 25 gm IV MWF PRN PRN Reason: Other Last Admin: 04/19/18 09:31 Dose: 12.5 gm Albuterol/Ipratropium (Duoneb 3 Mg/0.5 Mg (3 Ml) Ud) 3 ml INH RQ6 [facility] Last Admin: 04/19/18 07:49 Dose: 3 ml Ascorbic Acid (Vitamin C 500 Mg Tab) 500 mg PO QID [facility] Last Admin: 04/19/18 10:55 Dose: 500 mg Dextrose (Dextrose 50% Inj) 0 ml IVP .STAT PRN; Protocol PRN Reason: Hypoglycemia Protocol Last Admin: 04/18/18 18:05 Dose: 50 ml Dextrose (Glutose 15) 0 gm PO .ONCE PRN; Protocol PRN Reason: Hypoglycemia Protocol Ergocalciferol (Drisdol 50,000 Intl Units Cap) 1 cap PO Q7D [facility] Last Admin: 04/18/18 11:27 Dose: 1 cap Glucagon (Glucagen Diagnostic Kit) 0 mg IM .STAT PRN; Protocol PRN Reason: Hypoglycemia Protocol Heparin Sodium (Porcine) (Heparin) 5,000 units SC Q12 [facility] Last Admin: 04/19/18 10:57 Dose: Not Given Meropenem 500 mg/ Sodium (Chloride) 100 mls @ 100 mls/hr IVPB Q12H [facility] PRN Reason: Protocol Last Admin: 04/19/18 01:26 Dose: 100 mls/hr Multivitamins/Vitamin C 10 ml/Chromium/Copper/Manganese/Seleni/Zn 1 ml/ Amino Acids 1,011 mls @ 42 mls/hr IV .Q24H [facility] Stop: 04/19/18 17:59 Last Admin: 04/18/18 18:05 Dose: 42 mls/hr Fat Emulsion Intravenous (Intralipid 20%) 250 mls @ 21 mls/hr IV QOD@1800 [facility] Ampicillin 2 gm/ Sodium (Chloride) 100 mls @ 200 mls/hr IVPB Q6H [facility] PRN Reason: Protocol Last Admin: 04/19/18 13:04 Dose: 200 mls/hr Multivitamins/Vitamin C 10 ml/Chromium/Copper/Manganese/Seleni/Zn 1 ml/ Amino Acids 1,011 mls @ 42 mls/hr IV .Q24H [facility] Stop: 04/20/18 17:59 Multivitamins/Vitamin C (Multi-Delyn Liquid) 5 ml PO DAILY [facility] Last Admin: 04/19/18 10:59 Dose: 5 ml Nystatin (Nystop Topical Powder) 1 applic TOP BID [facility] Last Admin: 04/19/18 10:56 Dose: 1 applic Pantoprazole Sodium (Protonix Susp) 40 mg PO DAILY [facility] Last Admin: 04/19/18 10:55 Dose: 40 mg Silver Sulfadiazine (Silvadene 1%) 0 ea TOP DAILY [facility] Last Admin: 04/19/18 10:56 Dose: 1 applic Silver Sulfadiazine (Silvadene 1%) 0 ea TOP Q12 [facility] Last Admin: 04/19/18 13:07 Dose: Not Given Vitamin A (Vitamin A & D Oint Ud Foilpak) 1 ea TOP Q8 PRN PRN Reason: Dry Lips Last Admin: 04/18/18 21:53 Dose: 1 ea - Labs Labs: 04/19/18 06:04 04/19/18 06:04 PT 11.2 SECONDS (9.7-12.2) 04/05/18 06:15 INR 1.0 04/05/18 06:15 APTT 29 SECONDS (21-34) 04/05/18 06:15 - Head Exam Head Exam: ATRAUMATIC - Eye Exam Eye Exam: Normal appearance - ENT Exam ENT Exam: Mucous Membranes Dry - Respiratory Exam Respiratory Exam: NORMAL BREATHING PATTERN - Cardiovascular Exam Cardiovascular Exam: +S1, +S2 - GI/Abdominal Exam GI & Abdominal Exam: Normal Bowel Sounds Assessment and Plan (1) Anemia Assessment & Plan: anemia of chronic disease and renal disease EPO per renal transfusion support PRN Status: Acute (2) Coagulopathy Assessment & Plan: nutritional Status: Acute
[2018-04-19 13:11] VITALS: BP 97/59; RESP 20; O2SAT 100
[2018-04-19 13:46] VITALS: PULSE 98
[2018-04-19] MEDS ORDERED: Fat Emulsion 20% IV 250 ML IV SCH (18:00)
[2018-04-19] MEDS ORDERED: PPN#2 IV SCH (18:00)
--- NOTE | 2018-04-19 23:31 | CP.PCM.DIS ---
Provider - Provider Date of Admission: 04/01/18 15:31 Attending physician: Carlin Hair MD Diagnosis - Discharge Diagnosis (1) Acute respiratory failure Status: Acute (2) Acute tubular necrosis Status: Acute (3) Listeria septicemia Status: Acute (4) Leukocytosis Status: Acute Hospital Course - Lab Results Lab Results: Micro Results 04/13/18 08:55 Blood Blood Culture - Final NO GROWTH AFTER 5 DAYS 04/13/18 08:28 Blood Blood Culture - Final NO GROWTH AFTER 5 DAYS 04/13/18 11:48 Sputum Gram Stain - Final 04/13/18 11:48 Sputum Sputum Culture - Final NORMAL ORAL OCTAVIO 04/12/18 19:12 Urine Urine Culture - Final Yeast Species 04/13/18 09:20 Urine Urine Culture - Final Yeast Species 04/11/18 12:11 Urine Urine Culture - Final No Growth (<1,000 CFU/ML) 04/06/18 11:47 Leg - Left Gram Stain - Final 04/06/18 11:47 Leg - Left Wound Culture - Final Staphylococcus Aureus 04/03/18 19:30 Leg - Right Gram Stain - Final 04/03/18 19:30 Leg - Right Wound Culture - Final Coagulase Neg Staphylococcus 04/02/18 08:53 Blood-Venous Blood Culture - Final NO GROWTH AFTER 5 DAYS 04/02/18 08:53 Blood-Venous Gram Stain - Final TEST NOT PERFORMED 04/02/18 08:53 Blood-Venous Blood Culture - Final NO GROWTH AFTER 5 DAYS 04/02/18 08:53 Blood-Venous Gram Stain - Final TEST NOT PERFORMED 04/03/18 20:22 Leg - Left Gram Stain - Final 04/03/18 20:22 Leg - Left Wound Culture - Final Coagulase Neg Staphylococcus 04/01/18 19:14 Nose MRSA Culture (Admit) - Final MRSA NOT DETECTED Most Recent Lab Values WBC 8.9 K/uL (4.8-10.8) 04/19/18 06:04 RBC 2.71 Mil/uL (3.80-5.20) L 04/19/18 06:04 Hgb 8.0 g/dL (11.0-16.0) L 04/19/18 06:04 Hct 23.9 % (34.0-47.0) L 04/19/18 06:04 MCV 88.2 fL (81.0-99.0) 04/19/18 06:04 MCH 29.6 pg (27.0-31.0) 04/19/18 06:04 MCHC 33.6 g/dL (33.0-37.0) 04/19/18 06:04 RDW 16.1 % (11.5-14.5) H 04/19/18 06:04 Plt Count 261 K/uL (130-400) 04/19/18 06:04 MPV 9.2 fL (7.2-11.7) 04/19/18 06:04 Neut % (Auto) 81.2 % (50.0-75.0) H 04/19/18 06:04 Lymph % (Auto) 10.6 % (20.0-40.0) L 04/19/18 06:04 [place] % (Auto) 6.4 % (0.0-10.0) 04/19/18 06:04 Eos % (Auto) 0.7 % (0.0-4.0) 04/19/18 06:04 Baso % (Auto) 1.1 % (0.0-2.0) 04/19/18 06:04 Neut # (Auto) 7.2 K/uL (1.8-7.0) H 04/19/18 06:04 Lymph # (Auto) 0.9 K/uL (1.0-4.3) L 04/19/18 06:04 [place] # (Auto) 0.6 K/uL (0.0-0.8) 04/19/18 06:04 Eos # (Auto) 0.1 K/uL (0.0-0.7) 04/19/18 06:04 Baso # (Auto) 0.1 K/uL (0.0-0.2) 04/19/18 06:04 Neutrophils % (Manual) 82 % (50-75) H 04/12/18 06:01 Band Neutrophils % 1 % (0-2) 04/12/18 06:01 Lymphocytes % (Manual) 13 % (20-40) L 04/12/18 06:01 Reactive Lymphs % 1 % (0-0) H 04/10/18 06:55 Monocytes % (Manual) 4 % (0-10) 04/12/18 06:01 Basophils % (Manual) 1 % (0-2) 04/10/18 06:55 Nucleated RBC % 2 % (0-0) H 04/01/18 20:10 Toxic Granulation Present 04/10/18 06:55 Platelet Estimate Normal (NORMAL) 04/12/18 06:01 Large Platelets Present 04/10/18 06:55 Giant Platelets Present 04/01/18 20:10 Polychromasia Slight 04/12/18 06:01 Hypochromasia (manual) Slight 04/12/18 06:01 Poikilocytosis (manual Slight 04/09/18 06:33 Anisocytosis (manual) Slight 04/12/18 06:01 Microcytosis (manual) Slight 04/09/18 06:33 Macrocytosis (manual) Slight 04/08/18 07:04 Spherocytes Slight 04/02/18 06:34 Tear Drop Cells Slight 04/02/18 06:34 Ovalocytes Slight 04/07/18 05:59 Mekhi Cells Slight 04/03/18 06:33 Acanthocytes (Spur) Slight 04/01/18 20:10 Schistocytes Slight 04/09/18 06:33 Smear Path Review 04/01/18 20:10 ESR 14 mm/hr (0-20) 04/03/18 06:33 Retic Count 1.4 % (0.5-1.5) 04/05/18 06:14 Haptoglobin 346.1 mg/dL (30.0-200.0) H 04/05/18 06:15 PT 11.2 SECONDS (9.7-12.2) 04/05/18 06:15 INR 1.0 04/05/18 06:15 APTT 29 SECONDS (21-34) 04/05/18 06:15 Fibrinogen 289 mg/dL (200-400) 04/05/18 06:15 Fibrin Degrad Products Cancelled 04/05/18 06:15 Fibrin Degrad Prod, Qt Cancelled 04/05/18 06:15 D-Dimer, Quantitative > 5250 ng/mlDDU (0-243) H 04/05/18 06:15 Puncture Site Rb 04/17/18 05:38 pCO2 38 mm/Hg (35-45) 04/17/18 05:38 pO2 101 mm/Hg (80-100) H 04/17/18 05:38 HCO3 21.2 mmol/L (21-28) 04/17/18 05:38 ABG pH 7.34 (7.35-7.45) L 04/17/18 05:38 ABG Total CO2 21.7 mmol/L (22-28) L 04/17/18 05:38 ABG O2 Saturation 98.4 % (95-98) H 04/17/18 05:38 ABG Base Excess -4.8 mmol/L (-2.0-3.0) L 04/17/18 05:38 ABG Hemoglobin 9.7 g/dL (11.7-17.4) L 04/17/18 05:38 ABG Carboxyhemoglobin 1.6 % (0.5-1.5) H 04/17/18 05:38 POC ABG HHb (Measured) 1.6 % (0.0-5.0) 04/17/18 05:38 ABG Methemoglobin 1.2 % (0.0-3.0) 04/17/18 05:38 Jann Test Na 04/17/18 05:38 ABG Potassium 3.0 mmol/L (3.6-5.2) L 04/15/18 11:46 VBG pH 7.42 (7.32-7.43) 04/15/18 22:28 VBG pCO2 27 mmHg (40-60) L 04/15/18 22:28 VBG HCO3 20.0 mmol/L 04/15/18 22:28 VBG Total CO2 18.3 mmol/L (22-28) L 04/15/18 22:28 VBG O2 Sat (Calc) 80.2 % (40-65) H 04/15/18 22:28 VBG Base Excess -5.5 mmol/L (0.0-2.0) L 04/15/18 22:28 VBG Potassium 3.1 mmol/L (3.6-5.2) L 04/15/18 22:28 A-a O2 Difference 65.0 mm/Hg 04/17/18 05:38 Respiratory Index 0.6 04/17/18 05:38 Hgb O2 Saturation 95.6 % (95.0-98.0) 04/17/18 05:38 Sodium 148.0 mmol/l (132-148) 04/15/18 22:28 Chloride 122.0 mmol/L (98-107) H 04/15/18 22:28 Glucose 57 mg/dl (65-105) L 04/15/18 22:28 Lactate 1.0 mmol/L (0.7-2.1) 04/15/18 22:28 Liter Flow 6.0 04/15/18 11:46 Vent Mode Bipap 04/17/18 05:38 Mechanical Rate 18 04/15/18 05:22 FiO2 30.0 % 04/17/18 05:38 Tidal Volume 400 04/15/18 05:22 PEEP 5 04/15/18 05:22 Inspiratory BiPAP 10 04/17/18 05:38 Expiratory BiPAP 5 04/17/18 05:38 Blood Gas Comments Pos venous pt bp low 04/10/18 07:05 Crit Value Called To Dr lomeli 04/10/18 07:05 Crit Value Called By Kade whitfield rcp 04/10/18 07:05 Crit Value Read Back Y 04/10/18 07:05 Blood Gas Notified Time 715 04/10/18 07:05 Sodium 145 mmol/L (132-148) 04/19/18 06:04 Potassium 4.3 mmol/L (3.6-5.2) 04/19/18 06:04 Chloride 106 mmol/L (98-107) 04/19/18 06:04 Carbon Dioxide 25 mmol/L (22-30) 04/19/18 06:04 Anion Gap 19 (10-20) 04/19/18 06:04 BUN 51 mg/dL (7-17) H 04/19/18 06:04 Creatinine 1.9 mg/dL (0.7-1.2) H 04/19/18 06:04 Est GFR ( Amer) 33 04/19/18 06:04 Est GFR (Non-Af Amer) 28 04/19/18 06:04 POC Glucose (mg/dL) 120 mg/dL (65-110) H 04/19/18 11:37 Random Glucose 91 mg/dL (65-105) 04/19/18 06:04 Lactic Acid 2.1 mmol/L (0.7-2.1) 04/02/18 19:25 Uric Acid 13.3 mg/dL (2.2-7.5) H 04/01/18 19:09 Calcium 8.5 mg/dl (8.6-10.4) L 04/19/18 06:04 Phosphorus 4.4 mg/dL (2.5-4.5) 04/19/18 06:04 Magnesium 2.0 mg/dL (1.6-2.3) 04/19/18 06:04 Iron 11 ug/dL (37-170) L 04/02/18 06:37 TIBC 144 ug/dL (250-450) L 04/02/18 06:37 % Saturation 7 (20-55) L 04/02/18 06:37 Ferritin 107.0 ng/mL 04/02/18 06:37 Total Bilirubin 1.0 mg/dL (0.2-1.3) 04/19/18 06:04 AST 19 U/L (14-36) 04/19/18 06:04 ALT 23 U/L (9-52) 04/19/18 06:04 Alkaline Phosphatase 82 U/L (38-126) 04/19/18 06:04 Lactate Dehydrogenase 2023 U/L (313-618) H 04/01/18 19:09 Total Creatine Kinase 53 U/L (30-135) 04/06/18 12:12 CK-MB (Mass) 22.2 ng/mL (0.0-3.38) H 04/03/18 06:33 Total Protein 5.9 g/dL (6.3-8.3) L 04/19/18 06:04 Total Protein (PEP) 3.8 g/dL (6.1-8.1) L 04/02/18 08:41 Albumin 2.8 g/dL (3.5-5.0) L 04/19/18 06:04 Albumin (PEP) 1.7 g/dL (3.8-4.8) L 04/02/18 08:41 Globulin 3.1 gm/dL (2.2-3.9) 04/19/18 06:04 Albumin/Globulin Ratio 0.9 (1.0-2.1) L 04/19/18 06:04 Jxjys-1-Xdzuwcrls 0.5 g/dL (0.2-0.3) H 04/02/18 08:41 Ocqcn-9-Lvizyeoer 0.7 g/dL (0.5-0.9) 04/02/18 08:41 Nzpk-2-Tnmuulgw 0.1 g/dL (0.4-0.6) L 04/02/18 08:41 Otsy-3-Mhcdeemh 0.2 g/dL (0.2-0.5) 04/02/18 08:41 Gamma Globulins 0.5 g/dL (0.8-1.7) L 04/02/18 08:41 Abnorm Protein Band 1 TEST NOT PERFORMED 04/02/18 08:41 Abnorm Protein Band 2 TEST NOT PERFORMED 04/02/18 08:41 Abnorm Protein Band 3 TEST NOT PERFORMED 04/02/18 08:41 Carcinoembryonic Ag 5.7 ng/mL (0-3.0) H 04/05/18 06:15 CA 19-9 Antigen 286 U/mL (0-37) H 04/05/18 06:15 CA 125 Antigen 90.6 U/mL (0-35) H 04/05/18 06:15 UF Heparin Interp Negative (Negative) 04/05/18 07:21 Vitamin B12 457 pg/mL (239-931) 04/11/18 06:29 25-OH Vitamin D Total < 12.8 NG/ML (30.0-100.0) L 04/02/18 06:37 Beta HCG, Quant < 2.39 mIU/ML 04/05/18 06:15 Calcium (PTH Intact) 5.9 mg/dL (8.6-10.4) L 04/02/18 08:41 PTH w/Ion &Tot Calcium 397 pg/mL (14-64) H 04/02/18 08:41 Arterial Blood Potassium 3.0 mmol/L (3.6-5.2) L 04/15/18 11:46 Venous Blood Potassium 3.1 mmol/L (3.6-5.2) L 04/15/18 22:28 Urine Color Lara (YELLOW) 04/11/18 12:11 Urine Clarity Hazy (Clear) 04/11/18 12:11 Urine pH 5.0 (5.0-8.0) 04/11/18 12:11 Ur Specific [place] 1.020 (1.003-1.030) 04/11/18 12:11 Urine Protein 1+ mg/dL (NEGATIVE) H 04/11/18 12:11 Urine Glucose (UA) 1+ mg/dL (Normal) 04/11/18 12:11 Urine Ketones Trace mg/dL (NEGATIVE) 04/11/18 12:11 Urine Blood 2+ (NEGATIVE) H 04/11/18 12:11 Urine Nitrate Negative (NEGATIVE) 04/11/18 12:11 Urine Bilirubin Negative (NEGATIVE) 04/11/18 12:11 Urine Urobilinogen 2.0 mg/dL (0.2-1.0) H 04/11/18 12:11 Ur Leukocyte Esterase 2+ Arnoldo/uL (Negative) H 04/11/18 12:11 Urine WBC (Auto) 111 /hpf (0-5) H 04/11/18 12:11 Urine RBC (Auto) 2 /hpf (0-3) 04/11/18 12:11 Urine WBC Clumps (Auto) Occ /hpf (NONE) H 04/11/18 12:11 Ur Squamous Epith Cells 3 /hpf (0-5) 04/11/18 12:11 Amorphous Sediment Few /ul (<OCC) H 04/11/18 12:11 Urine Bacteria Occ (<OCC) H 04/11/18 12:11 Ur Random Creatinine 37.3 mg/dL 04/02/18 09:24 U Random Total Protein 200.0 mg/dL (0.0-12.0) H 04/02/18 09:24 Ur Random Sodium 86 mmol/L 04/02/18 09:24 Urine Microalbumin 741.1 mg/L (0.0-16.6) H 04/02/18 09:24 Urine Chloride 73 mmol/L (32-290) 04/02/18 21:17 Random Vancomycin 13.2 ug/mL 04/09/18 06:35 Urine Opiates Screen Negative (NEGATIVE) 04/01/18 19:09 Urine Methadone Screen Negative (NEGATIVE) 04/01/18 19:09 Ur Barbiturates Screen Negative (NEGATIVE) 04/01/18 19:09 Ur Phencyclidine Scrn Negative (NEGATIVE) 04/01/18 19:09 Ur Amphetamines Screen Negative (NEGATIVE) 04/01/18 19:09 U Benzodiazepines Scrn Negative (NEGATIVE) 04/01/18 19:09 U Oth Cocaine Metabols Negative (NEGATIVE) 04/01/18 19:09 U Cannabinoids Screen Negative (NEGATIVE) 04/01/18 19:09 CROW & SPEP Interp See note 04/02/18 08:41 Serum Immunofixation Detected (Not Detected) H 04/02/18 08:41 Rheumatoid Factor <14 IU/mL (<14) 04/03/18 18:23 Rheumatoid Factor IgG <5 U (<=6) 04/06/18 12:12 Rheumatoid Factor IgA <5 U (<=6) 04/06/18 12:12 Rheumatoid Factor IgM <5 U (<=6) 04/06/18 12:12 Cycl Citrul Peptide IgG <16 Units 04/06/18 12:12 MAYI 6 Profile Positive (NEGATIVE) H 04/06/18 12:12 MAYI Screen Negative (NEGATIVE) 04/03/18 18:23 MAYI Titer 1:40 H 04/06/18 12:12 MAYI Pattern Speckled H 04/06/18 12:12 ANCA Screen Negative (NEGATIVE) 04/06/18 12:12 c-ANCA Titer TNP 04/06/18 12:12 Proteinase 3 (PR3) <1.0 AI (<1.0) 04/06/18 12:12 p-ANCA Titer TNP 04/06/18 12:12 Atypical p-ANCA Titer TNP 04/06/18 12:12 Myeloperoxidase Ab <1.0 AI (<1.0) 04/06/18 12:12 SS-A Antibody <1.0 neg AI (<1.0 NEGATIVE) 04/03/18 18:23 SS-B Antibody <1.0 neg AI (<1.0 NEGATIVE) 04/03/18 18:23 Sm (Brandt) Antibody <1.0 neg AI (<1.0 NEGATIVE) 04/03/18 18:23 JIGMAN Antibody <1.0 AI (<1.0) 04/06/18 12:12 JIGMAN Antibody Interp Negative (Negative) 04/06/18 12:12 SM/JIGMAN Antibody <1.0 neg AI (<1.0 NEGATIVE) 04/03/18 18:23 Scl-70 Antibody <1.0 neg AI (<1.0 NEGATIVE) 04/03/18 18:23 Double Strand DNA Ab <1 IU/mL 04/06/18 12:12 Anti-ds DNA Titer (Crith) TNP 04/03/18 18:23 Anti-ds DNA (Crithidia) Negative (NEGATIVE) 04/03/18 18:23 Ribosomal P Prot Ab <1.0 neg AI (<1.0 NEGATIVE) 04/03/18 18:23 Anti-Mitochondrial Titr TNP 04/03/18 18:23 Anti-Mitochondrial Ab Negative (NEGATIVE) 04/03/18 18:23 Actin IgG Antibody <20 U 04/03/18 18:23 Striated Muscle Ab TNP 04/03/18 18:23 Myocardial Ab Titer TNP 04/03/18 18:23 Anti-Myocardial Ab Negative (NEGATIVE) 04/03/18 18:23 Reticulin Ab Titer TNP 04/03/18 18:23 Reticulin IgA Antibody Negative (NEGATIVE) 04/03/18 18: Thyroperoxidase Ab 1 IU/mL (<9) 04/03/18 18: Anti-Parietal Cell Ab 22.0 U H 04/03/18 18:23 Heparin-induced Plt Ab Negative (Negative) 04/05/18 07:21 GODWIN UFH Low Dose 0.1 0 % Release 04/05/18 07:21 GODWIN UFH Low Dose 0.5 1 % Release 04/05/18 07:21 GODWIN UFH High Dose 100 0 % Release 04/05/18 07:21 Complement C3 78.0 mg/dL (88.0-165.0) L 04/05/18 06:15 Complement C4 18.1 mg/dL (14.0-44.0) 04/05/18 06:15 Tot Complement (CH50) 43 U/mL (31-60) 04/03/18 06:33 Tot Arp/Lambda Ratio 1.46 (1.29-2.55) 04/02/18 08:41 Arp Light Chain Anal 137 mg/dL (176-443) L 04/02/18 08:41 Lambda Light Chain Anal 94 mg/dL (91-240) 04/02/18 08:41 C. difficile Ag & Toxin Negative (NEGATIVE) 04/14/18 18:14 Hep Bs Antigen Negative (NEGATIVE) 04/01/18 19:09 Hep Bs Antibody Negative (NEGATIVE) 04/01/18 19:09 Hep B Core IgM Ab Negative (NEGATIVE) 04/01/18 19:09 Hepatitis C Antibody Negative (NEGATIVE) 04/01/18 19:09 HIV 1&2 Antibody Screen Negative (NEGATIVE) 04/09/18 06:35 Anti-Staphylolysin O Negative (NEGATIVE) 04/06/18 12:12 JAK2 V617F Specimen Peripheral blood 04/03/18 12:01 JAK2 V617F Method See below 04/03/18 12:01 JAK2 % V617F Mutation 0.0 % mutation 04/03/18 12:01 JAK2 V617F Comment see note 04/03/18 12:01 JAK2 V617F Review By see note 04/03/18 12:01 BCR/abl Source Not given 04/03/18 12:01 BCR/abl Prior Result Not given 04/03/18 12:01 BCR/abl Interpretation See note 04/03/18 12:01 BCR/abl1 to abl1 % 0.000 (0.000) 04/03/18 12:01 BCR/abl1 to abl1 IS % 0.000 (0.000) 04/03/18 12:01 BCR/abl1 Mnr (p190) Res Not detected 04/03/18 12:01 BCR/abl1 Mjr (p210) Res Not detected 04/03/18 12:01 Blood Type O POSITIVE 04/19/18 09:54 Antibody Screen Negative 04/19/18 09:54 - Hospital Course Hospital Course: Pt seen and examined, is for discharge, diagnosis anemia of chronic disease and renal disease EPO per renal transfusion support PRN Discharge Exam - Head Exam Head Exam: ATRAUMATIC Discharge Plan - Follow Up Plan Condition: GOOD Disposition: HOME/ ROUTINE Instructions: Blisters, How to Wash Your Hands Properly
== END 2018-04-19 15:51 | disposition designated cancer center or children's hospital (05) | DRG 853 ==
LOC: C.9I 15:31
PROVIDERS: ADMIT Internal Medicine; ATTEND Internal Medicine
PROC: 5A1955Z Respiratory Ventilation, Greater than 96 Consecutive Hours (ICD-10-PCS; 2018-04-01)
PROC: 0BH17EZ Insertion of Endotracheal Airway into Trachea, Via Natural or Artificial Opening (ICD-10-PCS; 2018-04-01)
PROC: 5A1D70Z Performance of Urinary Filtration, Intermittent, Less than 6 Hours Per Day (ICD-10-PCS; 2018-04-01)
PROC: 30233N1 Transfusion of Nonautologous Red Blood Cells into Peripheral Vein, Percutaneous Approach (ICD-10-PCS; 2018-04-01)
PROC: 3E033XZ Introduction of Vasopressor into Peripheral Vein, Percutaneous Approach (ICD-10-PCS; 2018-04-03)
PROC: 02HV33Z Insertion of Infusion Device into Superior Vena Cava, Percutaneous Approach (ICD-10-PCS; 2018-04-05)
PROC: 0KBS0ZZ Excision of Right Lower Leg Muscle, Open Approach (ICD-10-PCS; 2018-04-06)
PROC: 0KBT0ZZ Excision of Left Lower Leg Muscle, Open Approach (ICD-10-PCS; principal; 2018-04-06 11:30)
DX: A41.89 Other specified sepsis (principal); N17.0 Acute kidney failure with tubular necrosis; R65.21 Severe sepsis with septic shock; M72.6 Necrotizing fasciitis; E43 Unspecified severe protein-calorie malnutrition; J96.01 Acute respiratory failure with hypoxia; E87.2 Acidosis; M62.82 Rhabdomyolysis; N39.0 Urinary tract infection, site not specified; N25.81 Secondary hyperparathyroidism of renal origin; R64 Cachexia; L97.919 Non-pressure chronic ulcer of unspecified part of right lower leg with unspecified severity; I96 Gangrene, not elsewhere classified; L03.115 Cellulitis of right lower limb; L51.2 Toxic epidermal necrolysis [Lyell]; N13.39 Other hydronephrosis; K92.2 Gastrointestinal hemorrhage, unspecified; E87.5 Hyperkalemia; K42.9 Umbilical hernia without obstruction or gangrene; R19.00 Intra-abdominal and pelvic swelling, mass and lump, unspecified site; D50.0 Iron deficiency anemia secondary to blood loss (chronic)